=== PATIENT | female | born 2000 | race Caucasian/White ===

== ENCOUNTER 2020-04-17 14:07 | Inpatient (IN) | payer OTHER, MEDICAID, SELFPAY ==
--- NOTE | 2020-04-17 14:19 | ED.PSYCH ---
HPI - Psych General Chief Complaint: Psychiatric Symptoms Stated Complaint: crisis Time Seen by Provider: 04/17/20 14:19 Source: patient Mode of arrival: ambulatory Limitations: no limitations History of Present Illness HPI Narrative: 20-year-old female with history of bipolar 1 disorder with prior admission to psychiatric floor to presenting with complaint of feeling increasingly depressed, anxious and suicidal ideations. States he has been feeling increasingly having the symptoms and feel disorganized and feeling like she is going to have a behavioral outburst as she seems feels very easily frustrated by things. She does report that she frequently has lasted her medications on a regular basis mostly during the beginning of the month when there was a lapse in picking her medication from her pharmacy. She otherwise denies any medical problems or any illicit substance use. MD complaint: suicidal ideation, feels depressed and anxiety Onset (ago): day(s) Duration: constant History of same: Yes Relieving factors: none Exacerbating factors: none Context: not taking psychiatric medications Associated psychiatric symptoms: depression, suicidal ideation and racing thoughts Associated symptoms: denies other symptoms Treatments prior to arrival: none If self harm: admits thoughts of self harm ( States she has knives at home [employer] herself but has not done anything to do so.) Related Data Home Medications Medication Instructions Recorded Confirmed clonazepam 0.5 mg PO BID 04/17/20 04/17/20 divalproex 1,500 mg PO BEDTIME 04/17/20 04/17/20 lithium carbonate 450 mg PO BID 04/17/20 04/17/20 melatonin 10 mg PO BEDTIME 04/17/20 04/17/20 perphenazine 4 mg PO DAILY PRN 04/17/20 04/17/20 perphenazine 8 mg PO BEDTIME 04/17/20 04/17/20 propranolol 80 mg PO QAM 04/17/20 04/17/20 trazodone 150 mg PO BEDTIME 04/17/20 04/17/20 Allergies Allergy/AdvReac Type Severity Reaction Status Date / Time insect venom [MOSQUITO] Allergy Unknown UNKNOWN Unverified 01/25/20 17:02 paliperidone [From INVEGA] Allergy Unknown DYSTONIC Unverified 01/25/20 17:02 REACTION haloperidol [HALOPERIDOL] AdvReac Intermediate Dystonic Unverified 01/25/20 17:02 reaction Review of Systems Review of Systems: Constitutional: No Weight loss, No Fever, No Chills, No Night Sweats, No Fatigue, No Malaise ENT/Mouth: No Hearing loss, No Ear Pain, No Nasal Congestion, No Sinus Pain, No Hoarseness, No sore throat, No Rhinorrhea, No Swallowing Difficulty Eyes: No Eye Pain, No Swelling, No Redness, No Foreign Body, No Discharge, No Vision Changes Cardiovascular: No Chest Pain, No SOB, No Dyspnea on Exertion, No Orthopnea, No Edema, No Palpitations Respiratory: No Cough, No Sputum, No Wheezing, No Smoke Exposure, No Dyspnea Gastrointestinal: No Nausea, No Vomiting, No Diarrhea, No Constipation, No abdominal Pain, No Hematochezia, No Melena Genitourinary: no irregular bleeding, No Dysuria, No Urinary Frequency, No Hematuria, No Urinary Incontinence, No Urgency, No Flank Pain Musculoskeletal: No joint pain, No Myalgias, No Joint Swelling Skin: No Skin Lesions, No rash Neuro: No Weakness, No Numbness, No Paresthesias, No Loss of Consciousness, No Dizziness, No Headache Psych: As noted in HPI Heme/Lymph: No Bruising, No Bleeding,No Lymphadenopathy Endocrine: No Polyuria, No Polydipsia, No Temperature Intolerance Yes all other systems are reviewed and are negative [facility] Past Medical History Medical History Anxiety Bipolar 1 disorder PTSD (post-traumatic stress disorder) Social History Social History Advance Directives: No Advance Directives Information Provided: No Physical Exam Vital Signs: Vital Signs: Last Vital Signs Temp 97 F 04/17/20 19:09 Pulse 99 04/17/20 19:24 Resp 18 04/17/20 19:09 BP 104/69 04/17/20 19:24 Pulse Ox 99 04/17/20 19:09 Body Mass Index 22.6 Reviewed Const: General: cooperative and healthy appearing; No acute distress or intoxicated appearing Nutritional Appearance: average body habitus Orientation/consciousness: patient oriented x3 HENMT: Head: Yes normal to inspection Ears: hearing grossly normal bilaterally Eyes: General: appearance normal, both eyes and all related structures Visual Morrissey: normal visual morrissey by confrontation Neck: Neck: Yes normal visual inspection and No tender Thyroid: Thyroid normal Chest: Chest palpation & inspection: normal inspection of the chest Resp: Effort & Inspection: normal respiratory effort Auscultation: clear to auscultation bilaterally Cardio: Jugular venous distension: no JVD Rhythm: regular rhythm Heart sounds: S1 normal heart sound present and S2 normal heart sound present GI: Inspection: Yes normal to inspection Percussion: Yes normal to percussion Auscultation: normal bowel sounds : General: Yes no CVA tenderness Back/Spine/Pelvis: Back: no CVA tenderness Skin: General skin exam: no rashes or lesions noted Neuro: General: patient oriented x3 Extrem: General: Yes normal to inspection Psych: Appearance: well ket Course Course Course Narrative: 1444 Offers no medical complaints. Will obtain clearance labs and crisis evaluation. Plan reviewed and agreeable. 1800 Labs stable. Medically clear for psychiatric evaluation. Reevaluation(s) Reevaluation #1: 2100 sign-out at this time pending crisis evaluation. MDM - Psych Restraints Face to Face Assessment: Face to Face Assessment: Current Situation: After assessment of the patient, a review of the pertinent medical record and a discussion with nursing staff, I feel the patient requires a restrain intervention. Reaction To: [] Medical Condition: [] Behavioral State: [] Continued Need: [] Lab Data Result diagrams: 04/17/20 15:42 04/17/20 15:42 Labs: Lab Results 04/17/20 04/17/20 04/17/20 Range/Units 15:42 15:42 15:42 WBC 5.7 (4.8-10.8) X10*3/uL RBC 4.31 (4.20-5.50) X10*6/uL Hgb 13.2 (12.0-16.0) g/dl Hct 39.6 (37-47) % MCV 91.9 (80-98) fL MCH 30.6 (27.0-33.0) pg MCHC 33.3 (31.0-35.0) g/dl RDW 11.9 (11.0-16.0) % Plt Count 229 (160-400) X10*3/uL MPV 10.0 (9.4-12.3) fL Immature Gran % (Auto) 0.2 (0.0-0.4) % Neut % (Auto) 60.4 (45-73) % Lymph % (Auto) 30.1 (20-40) % [place] % (Auto) 7.9 (2-11) % Eos % (Auto) 0.9 (0-4) % Baso % (Auto) 0.5 (0-2) % Lymph # (Auto) 1.7 (1.2-4.9) X10*3/uL [place] # (Auto) 0.5 (0.1-1.2) X10*3/uL Eos # (Auto) 0.1 (0.0-0.4) X10*3/uL Baso # (Auto) 0.0 (0.0-0.2) X10*3/uL Abs Immat Gran (auto) 0.01 (0.00-0.03) X10*3/uL Absolute Neuts (auto) 3.4 (2.0-8.3) X10*3/uL Absolute Nucleated RBC 0.000 (0.0-0.012) X10*3/uL Nucleated RBC % (auto) 0.0 (0.0-0.2) /100WBC Sodium 135 (135-145) mmol/L Potassium 4.2 (3.3-5.1) mmol/l Chloride 106 (96-108) mmol/L Carbon Dioxide 21 L (22-29) mmol/L Anion Gap 12 (12-20) BUN 7 L (9-16) mg/dL Creatinine 0.62 (0.5-1.4) mg/dL Estim Creat Clear Calc 135.5 Estimated GFR > 60 Random Glucose 92 (60-115) mg/dL Calcium 9.3 (8.4-10.2) mg/dL Total Bilirubin 0.4 (0.0-1.0) mg/dL AST 20 (5-31) U/L ALT 16 (0-31) U/L Alkaline Phosphatase 67 (39-117) U/L Total Protein 7.4 (6.5-8.0) g/dL Albumin 4.3 (3.5-5.0) g/dL Urine Color Urine Appearance Urine pH (5.0-8.0) Ur Specific [place] (1.005-1.025) Urine Protein (NEG-TRACE) MG/DL Urine Glucose (UA) (NEG) MG/DL Urine Ketones (NEG) MG/DL Urine Blood (NEG) Urine Nitrite (NEG) Ur Leukocyte Esterase (NEG) Urine RBC (0) /HPF Urine WBC (0-4) /HPF Ur Squamous Epith Cells /LPF Urine Bacteria /LPF Urine Test (NEGATIVE) Urine Opiates Screen (Not Detect) Ur Barbiturates Screen (Not Detect) Ur Phencyclidine Scrn (Not Detect) Ur Amphetamines Screen (Not Detect) U Benzodiazepines Scrn (Not Detect) [place] 0.41 L (0.60-1.20) mmol/L Urine Cocaine Screen (Not Detect) U Marijuana (THC) Screen (Not Detect) Ethyl Alcohol mg/dL 04/17/20 04/17/20 04/17/20 Range/Units 15:42 15:42 15:42 WBC (4.8-10.8) X10*3/uL RBC (4.20-5.50) X10*6/uL Hgb (12.0-16.0) g/dl Hct (37-47) % MCV (80-98) fL MCH (27.0-33.0) pg MCHC (31.0-35.0) g/dl RDW (11.0-16.0) % Plt Count (160-400) X10*3/uL MPV (9.4-12.3) fL Immature Gran % (Auto) (0.0-0.4) % Neut % (Auto) (45-73) % Lymph % (Auto) (20-40) % [place] % (Auto) (2-11) % Eos % (Auto) (0-4) % Baso % (Auto) (0-2) % Lymph # (Auto) (1.2-4.9) X10*3/uL [place] # (Auto) (0.1-1.2) X10*3/uL Eos # (Auto) (0.0-0.4) X10*3/uL Baso # (Auto) (0.0-0.2) X10*3/uL Abs Immat Gran (auto) (0.00-0.03) X10*3/uL Absolute Neuts (auto) (2.0-8.3) X10*3/uL Absolute Nucleated RBC (0.0-0.012) X10*3/uL Nucleated RBC % (auto) (0.0-0.2) /100WBC Sodium (135-145) mmol/L Potassium (3.3-5.1) mmol/l Chloride (96-108) mmol/L Carbon Dioxide (22-29) mmol/L Anion Gap (12-20) BUN (9-16) mg/dL Creatinine (0.5-1.4) mg/dL Estim Creat Clear Calc Estimated GFR Random Glucose (60-115) mg/dL Calcium (8.4-10.2) mg/dL Total Bilirubin (0.0-1.0) mg/dL AST (5-31) U/L ALT (0-31) U/L Alkaline Phosphatase (39-117) U/L Total Protein (6.5-8.0) g/dL Albumin (3.5-5.0) g/dL Urine Color YELLOW Urine Appearance CLEAR Urine pH 7.5 (5.0-8.0) Ur Specific [place] 1.020 (1.005-1.025) Urine Protein NEG (NEG-TRACE) MG/DL Urine Glucose (UA) NEG (NEG) MG/DL Urine Ketones 5 (NEG) MG/DL Urine Blood NEG (NEG) Urine Nitrite NEG (NEG) Ur Leukocyte Esterase NEG (NEG) Urine RBC 0 (0) /HPF Urine WBC 0 (0-4) /HPF Ur Squamous Epith Cells 1+ /LPF Urine Bacteria 1+ /LPF Urine Test NEGATIVE (NEGATIVE) Urine Opiates Screen Not Detected (Not Detect) Ur Barbiturates Screen Not Detected (Not Detect) Ur Phencyclidine Scrn Not Detected (Not Detect) Ur Amphetamines Screen Not Detected (Not Detect) U Benzodiazepines Scrn Not Detected (Not Detect) [place] (0.60-1.20) mmol/L Urine Cocaine Screen Not Detected (Not Detect) U Marijuana (THC) Screen Not Detected (Not Detect) Ethyl Alcohol < 10 mg/dL Discharge Plan Discharge Clinical Impression: Depression, Bipolar disorder Prescriptions: No Action lithium carbonate 450 mg Tablet Extended Release 450 mg PO BID RF: 0 trazodone 150 mg Tablet 150 mg PO BEDTIME RF: 0 propranolol 80 mg Capsule,Extended Release 24 Hr 80 mg PO QAM RF: 0 perphenazine 8 mg Tablet 8 mg PO BEDTIME RF: 0 divalproex 500 mg Tablet Extended Release 24 Hr 1,500 mg PO BEDTIME RF: 0 melatonin 5 mg Tablet 10 mg PO BEDTIME RF: 0 perphenazine 4 mg Tablet 4 mg PO DAILY PRN (Reason: Psychosis) RF: 0 clonazepam 0.5 mg Tablet 0.5 mg PO BID RF: 0
[2020-04-17 14:38] VITALS: BP 105/68; PULSE 95; RESP 18; TEMP 36.1; O2SAT 97; BMI 22.6
[2020-04-17 15:51] LABS: Basophils Percent Auto 0.5 % (0-2); Eosinophils Absolute Auto 0.1 X10*3/uL (0.0-0.4); Eosinophils Percent Auto 0.9 % (0-4); Hematocrit 39.6 % (37-47); Hemoglobin 13.2 g/dl (12.0-16.0); Imm Gran Abs Auto 0.01 X10*3/uL (0.00-0.03); Imm Gran Pct Auto 0.2 % (0.0-0.4); Lymphocytes Absolute Auto 1.7 X10*3/uL (1.2-4.9); Lymphocytes Percent Auto 30.1 % (20-40); MANUAL DIFF FLAG NO; Mean Corpuscular HGB Conc 33.3 g/dl (31.0-35.0); Mean Corpuscular Hemoglobin 30.6 pg (27.0-33.0); Mean Corpuscular Volume 91.9 fL (80-98); Monocytes Absolute Auto 0.5 X10*3/uL (0.1-1.2); Monocytes Percent Auto 7.9 % (2-11); Neutrophils Absolute Auto 3.4 X10*3/uL (2.0-8.3); Neutrophils Percent Auto 60.4 % (45-73); Platelet Count 229 X10*3/uL (160-400); Red Blood Count 4.31 X10*6/uL (4.20-5.50); Red Cell Distribution Width 11.9 % (11.0-16.0); White Blood Count 5.7 X10*3/uL (4.8-10.8)
[2020-04-17 15:56] LABS: Glucose Urine UA NEG (NEG); Leukocyte Esterase Urine NEG (NEG); Nitrite Urine NEG (NEG); PH 7.5 (5.0-8.0); Urine Blood NEG (NEG); Urine Ketones 5 MG/DL (NEG); Urine Protein NEG (NEG-TRACE)
[2020-04-17 15:57] LABS: Appearance Urine CLEAR; Color Urine YELLOW
[2020-04-17 15:58] LABS: UPreg QC Valid YES; Urine Pregnancy NEGATIVE (NEGATIVE)
[2020-04-17 16:06] LABS: Bacteria Urine 1+ /LPF; RBC Urine 0 /HPF (0); Squamous Epithelial Cell Urine 1+ /LPF; WBC Urine 0 /HPF (0-4)
[2020-04-17 16:18] LABS: Lithium 0.41 mmol/L (0.60-1.20)
[2020-04-17 16:19] LABS: Ethanol < 10 mg/dL
[2020-04-17 16:24] LABS: Amphetamine Screen Urine Not Detected (Not Detect); Barbiturates, Urine Not Detected (Not Detect); Benzodiazepines Screen Urine Not Detected (Not Detect); Cannabinoid Screen Urine Not Detected (Not Detect); Cocaine Screen Urine Not Detected (Not Detect); Opiate Screen Urine Not Detected (Not Detect); Phencyclidine Screen Urine Not Detected (Not Detect)
[2020-04-17 16:25] LABS: Alanine Aminotransferase 16 U/L (0-31); Albumin Level 4.3 g/dL (3.5-5.0); Alkaline Phosphatase 67 U/L (39-117); Anion Gap 12 (12-20); Aspartate Amino Transferase 20 U/L (5-31); Bilirubin Total 0.4 mg/dL (0.0-1.0); Blood Urea Nitrogen 7 mg/dL (9-16); Calcium 9.3 mg/dL (8.4-10.2); Carbon Dioxide 21 mmol/L (22-29); Chloride 106 mmol/L (96-108); Creatinine Clr Calc Pharmacy 135.5; Estimated Glomerular Filt Rate > 60; Glucose Random 92 mg/dL (60-115); Potassium 4.2 mmol/l (3.3-5.1); Sodium 135 mmol/L (135-145); Total Protein 7.4 g/dL (6.5-8.0)
--- NOTE | 2020-04-17 16:38 | PC.NURSE ---
Patient calm and quiet, no distress observed/reported, N faxed/called/spoke with [facility]/confirmed receipt of referral, no ETA, will continue to monitor.
[2020-04-17 19:09] VITALS: BP 104/69; PULSE 99; RESP 18; TEMP 36.1; O2SAT 99
[2020-04-17 19:24] VITALS: BP 104/69; PULSE 99
[2020-04-17] MEDS: Propranolol HCL LA 80 MG CAP.SA.24H PO (19:24)
--- NOTE | 2020-04-17 20:16 | PC.NURSE ---
[facility] clinician with patient, patient engaged with process.
[2020-04-17] MEDS: Lithium Carbonate ER 450 MG TABLET.ER PO (20:57)
[2020-04-17] MEDS: Divalproex Sodium ER 500 MG TAB.ER.24H 1500 MG PO (20:57)
[2020-04-17] MEDS: traZODone HCL 50 MG TABLET 150 MG PO (20:57)
[2020-04-17] MEDS: Perphenazine 8 MG TABLET PO (20:57)
[2020-04-17] MEDS: Melatonin 3 MG TABLET 9 MG PO (20:58)
[2020-04-17] MEDS: clonazePAM 0.5 MG TABLET PO (21:01)
--- NOTE | 2020-04-17 21:16 | PC.NURSE ---
SAFIAN updated patient's disposition, patient is on section 12 inpatient bed search, patient and provider aware.
[2020-04-17 21:56] VITALS: BP 92/62; PULSE 89; RESP 18; TEMP 36.6; O2SAT 99
[2020-04-18] VITALS (7 sets, daily range): BP systolic 96–105; BP diastolic 58–62; PULSE 77–100; RESP 16; TEMP 36.4–37.6; O2SAT 98–99
--- NOTE | 2020-04-18 07:18 | PC.NURSE ---
Report received. PT is sleeping in bed. Breathing is even and unlabored. Inpatient bed search in progress.
[2020-04-18] MEDS: Propranolol HCL LA 80 MG CAP.SA.24H PO (09:23)
[2020-04-18] MEDS: clonazePAM 0.5 MG TABLET PO ×2 (09:24→20:09)
[2020-04-18] MEDS: Lithium Carbonate ER 450 MG TABLET.ER PO ×2 (09:24→20:09)
--- NOTE | 2020-04-18 11:44 | PC.NURSE ---
Report received from MAYUR De Jesus. Pt resting, resp unlabored.
[2020-04-18 14:34] LABS: COVID-19 Test Negative (Negative); IDNOW Serial# 9DD0AD1C
--- NOTE | 2020-04-18 15:14 | PC.NURSE ---
Report given to MAYUR Yung on [facility]
--- NOTE | 2020-04-18 17:50 | PC.NURSE ---
CARE team in to transfer pt to [facility]. Pt cooperative w/ transfer, no concerns reported.
[2020-04-18] MEDS: Divalproex Sodium ER 500 MG TAB.ER.24H 1500 MG PO (20:10)
[2020-04-18] MEDS: Perphenazine 8 MG TABLET PO (20:10)
[2020-04-18] MEDS: Melatonin 3 MG TABLET 9 MG PO (20:10)
[2020-04-18] MEDS: traZODone HCL 50 MG TABLET 150 MG PO (20:10)
--- NOTE | 2020-04-18 21:15 | PC.ADMIT ---
Pt is admitted to from [facility] ED at 1750. Pt is an Irish speaking, caucasion ladarius who [place] [facility] [place] due to her mother requesting help when pt stated suicidal ideation with plan to kill her self using one of her brothers construction tools from [employer]. Pt reported feeeling depresssed, sad and active SI. N noted pt to be suffering from delusions centered in her self-esteem where she feels she is bad. I don't want to exist, and feels she is too fat . Pt made comments that her mother cared for her siblings more than her which increased pts idea there is no point in existing . Pt is isolating herself and sleeping all day and not eating. Pt has not been taking her medications as ordered ( lithium level 0.40). Pt was admitted to in November 2019. Pt familar with unit and staff. Pt contracted for safety. Pt will seek out staff if feeling unsafe. Pt pleasant and cooperative. Pt to have lab work in the am.
[2020-04-19 07:00] VITALS: BP 95/51; PULSE 87; RESP 16; TEMP 35.5; O2SAT 99
[2020-04-19 08:37] LABS: Cholesterol 151 mg/dL; Glucose Fasting 90 mg/dL (60-99); HDL Cholesterol 52 mg/dL; LDL Cholesterol Calculated 85 mg/dl; Triglycerides 70 mg/dL
[2020-04-19 08:56] LABS: Thyroid Stimulating Hormone 7.79 uIU/mL (0.32-4.0)
[2020-04-19] MEDS: clonazePAM 0.5 MG TABLET PO ×2 (08:57→20:08)
[2020-04-19] MEDS: Lithium Carbonate ER 450 MG TABLET.ER PO ×2 (08:57→20:07)
[2020-04-19 08:58] VITALS: BP 95/51; PULSE 87
--- NOTE | 2020-04-19 11:05 | P.HPPS_ITS ---
HPI Chief Complaint: mood swings Sources of Information: patient interviewed, chart reviewed and crisis/core team assessment reviewed HPI Narrative: Individual is an Setswana speaking, femal who arrived to [facility] [place] [facility] for crisis evaluation due to her mother requesting help when pt stated suicidal ideation with plan to kill her self using one of her brothers construction tools from the house. This is one of several admission to and she was last admitted in November 2019. She was referred for admission by [facility] crisis. Pt reported feeling depressed, sad and active SI. N noted her to be suffering from delusions centered in her self-esteem where she feels she is bad. She states I don't want to exist , and feels she is too fat . Pt made comments that her mother cared for her siblings more than her which increased pts idea there is no point in existing . She insists that her family does not like her. She has not been taking her medication consistently lately, has been isolating and not taking care of her basic needs. She reports that she does feel safe on the unit, and is hopeful that she can feel better. Past Psychiatric History: Multiple admissions to She receives services through [facility] Medical Evaluation Reviewed: Yes Medically cleared for admission [facility] Medical History Anxiety Bipolar 1 disorder PTSD (post-traumatic stress disorder) Social History: Lives with her family Substance History: Denies Diagnostics Vital Signs (24Hr): Vital Signs - 24 hr 04/18/20 12:00 04/18/20 14:00 04/18/20 16:00 Temperature Pulse Rate Respiratory Rate 16 16 16 Blood Pressure Pulse Oximetry 04/18/20 16:21 04/18/20 18:00 04/19/20 07:00 Temperature 97.5 F 99.6 F 96 F L Pulse Rate 91 77 87 Respiratory Rate 16 16 Blood Pressure 96/58 L 100/61 95/51 L Pulse Oximetry 98 99 04/19/20 08:58 Temperature Pulse Rate 87 Respiratory Rate Blood Pressure 95/51 L Pulse Oximetry Body Mass Index 22.6 Labs Results: 04/17/20 15:42 04/17/20 15:42 Labs: Laboratory Results - last 48 hr 04/17/20 04/17/20 04/17/20 15:42 15:42 15:42 WBC 5.7 RBC 4.31 Hgb 13.2 Hct 39.6 MCV 91.9 MCH 30.6 MCHC 33.3 RDW 11.9 Plt Count 229 MPV 10.0 Immature Gran % (Auto) 0.2 Neut % (Auto) 60.4 Lymph % (Auto) 30.1 [place] % (Auto) 7.9 Eos % (Auto) 0.9 Baso % (Auto) 0.5 Lymph # (Auto) 1.7 [place] # (Auto) 0.5 Eos # (Auto) 0.1 Baso # (Auto) 0.0 Abs Immat Gran (auto) 0.01 Absolute Neuts (auto) 3.4 Absolute Nucleated RBC 0.000 Nucleated RBC % (auto) 0.0 Sodium 135 Potassium 4.2 Chloride 106 Carbon Dioxide 21 L Anion Gap 12 BUN 7 L Creatinine 0.62 Estim Creat Clear Calc 135.5 Estimated GFR > 60 Random Glucose 92 Fasting Glucose Calcium 9.3 Total Bilirubin 0.4 AST 20 ALT 16 Alkaline Phosphatase 67 Total Protein 7.4 Albumin 4.3 Triglycerides Cholesterol LDL Cholesterol, Calc HDL Cholesterol TSH Urine Color Urine Appearance Urine pH Ur Specific [place] Urine Protein Urine Glucose (UA) Urine Ketones Urine Blood Urine Nitrite Ur Leukocyte Esterase Urine RBC Urine WBC Ur Squamous Epith Cells Urine Bacteria Urine Test Urine Opiates Screen Ur Barbiturates Screen Valproic Acid Ur Phencyclidine Scrn Ur Amphetamines Screen U Benzodiazepines Scrn [place] 0.41 L Urine Cocaine Screen U Marijuana (THC) Screen Ethyl Alcohol COVID-19 ([facility]) COVID-19 Clin Com 04/17/20 04/17/20 04/17/20 15:42 15:42 15:42 WBC RBC Hgb Hct MCV MCH MCHC RDW Plt Count MPV Immature Gran % (Auto) Neut % (Auto) Lymph % (Auto) [place] % (Auto) Eos % (Auto) Baso % (Auto) Lymph # (Auto) [place] # (Auto) Eos # (Auto) Baso # (Auto) Abs Immat Gran (auto) Absolute Neuts (auto) Absolute Nucleated RBC Nucleated RBC % (auto) Sodium Potassium Chloride Carbon Dioxide Anion Gap BUN Creatinine Estim Creat Clear Calc Estimated GFR Random Glucose Fasting Glucose Calcium Total Bilirubin AST ALT Alkaline Phosphatase Total Protein Albumin Triglycerides Cholesterol LDL Cholesterol, Calc HDL Cholesterol TSH Urine Color YELLOW Urine Appearance CLEAR Urine pH 7.5 Ur Specific [place] 1.020 Urine Protein NEG Urine Glucose (UA) NEG Urine Ketones 5 Urine Blood NEG Urine Nitrite NEG Ur Leukocyte Esterase NEG Urine RBC 0 Urine WBC 0 Ur Squamous Epith Cells 1+ Urine Bacteria 1+ Urine Test NEGATIVE Urine Opiates Screen Not Detected Ur Barbiturates Screen Not Detected Valproic Acid Ur Phencyclidine Scrn Not Detected Ur Amphetamines Screen Not Detected U Benzodiazepines Scrn Not Detected [place] Urine Cocaine Screen Not Detected U Marijuana (THC) Screen Not Detected Ethyl Alcohol < 10 COVID-19 ([facility]ENNA) COVID-19 Clin Com 04/18/20 04/19/20 04/19/20 13:54 07:50 07:50 WBC RBC Hgb Hct MCV MCH MCHC RDW Plt Count MPV Immature Gran % (Auto) Neut % (Auto) Lymph % (Auto) [place] % (Auto) Eos % (Auto) Baso % (Auto) Lymph # (Auto) [place] # (Auto) Eos # (Auto) Baso # (Auto) Abs Immat Gran (auto) Absolute Neuts (auto) Absolute Nucleated RBC Nucleated RBC % (auto) Sodium Potassium Chloride Carbon Dioxide Anion Gap BUN Creatinine Estim Creat Clear Calc Estimated GFR Random Glucose Fasting Glucose 90 Calcium Total Bilirubin AST ALT Alkaline Phosphatase Total Protein Albumin Triglycerides 70 Cholesterol 151 LDL Cholesterol, Calc 85 HDL Cholesterol 52 TSH 7.79 H Urine Color Urine Appearance Urine pH Ur Specific [place] Urine Protein Urine Glucose (UA) Urine Ketones Urine Blood Urine Nitrite Ur Leukocyte Esterase Urine RBC Urine WBC Ur Squamous Epith Cells Urine Bacteria Urine Test Urine Opiates Screen Ur Barbiturates Screen Valproic Acid 76.0 Ur Phencyclidine Scrn Ur Amphetamines Screen U Benzodiazepines Scrn [place] Urine Cocaine Screen U Marijuana (THC) Screen Ethyl Alcohol COVID-19 (SIENNA) Negative COVID-19 Clin Com See Note Meds/Allergies Meds Home Medications Acetaminophen (Acetaminophen 325 Mg Tablet) 650 mg PO Q6H PRN PRN Reason: Headache/Pain Mild Scale (1-3) Al Hydroxide/Mg Hydroxide (Magnesium Hydrox/Alum Hydrox 30 Ml Oral.Susp) 30 ml PO Q6H PRN PRN Reason: Heartburn/Nausea Clonazepam (Clonazepam 0.5 Mg Tablet) 0.5 mg PO BID [facility] Last Admin: 04/19/20 08:57 Dose: 0.5 mg Documented by: Divalproex Sodium (Divalproex Sodium Er 500 Mg Tab.Er.24h) 1,500 mg PO BEDTIME [place] Last Admin: 04/18/20 20:10 Dose: 1,500 mg Documented by: Hydroxyzine HCl (Hydroxyzine Hcl 25 Mg Tablet) 25 mg PO BEDTIME PRN PRN Reason: Anxiety [place] Carbonate ([place] Carbonate Er 450 Mg Tablet.Er) 450 mg PO BID [facility] Last Admin: 04/19/20 08:57 Dose: 450 mg Documented by: Magnesium Hydroxide (Milk Of Magnesia 30 Ml Oral.Susp) 30 ml PO DAILY PRN PRN Reason: Constipation Melatonin (Melatonin 3 Mg Tablet) 9 mg PO BEDTIME [facility] Last Admin: 04/18/20 20:10 Dose: 9 mg Documented by: Perphenazine (Perphenazine 4 Mg Tablet) 4 mg PO DAILY PRN PRN Reason: Psychosis Perphenazine (Perphenazine 8 Mg Tablet) 8 mg PO BEDTIME [facility] Last Admin: 04/18/20 20:10 Dose: 8 mg Documented by: Propranolol HCl (Propranolol Hcl [place] 80 Mg Cap.Sa.24h) 80 mg PO DAILY [facility]; Protocol Last Admin: 04/19/20 08:58 Dose: Not Given Documented by: Trazodone HCl (Trazodone Hcl 50 Mg Tablet) 150 mg PO BEDTIME [facility] Last Admin: 04/18/20 20:10 Dose: 150 mg Documented by: Trazodone HCl (Trazodone Hcl 50 Mg Tablet) 50 mg PO BEDTIME PRN PRN Reason: Insomnia Allergies Allergies Allergy/AdvReac Type Severity Reaction Status Date / Time insect venom [MOSQUITO] Allergy Unknown UNKNOWN Unverified 01/25/20 17:02 paliperidone [From INVEGA] Allergy Unknown DYSTONIC Unverified 01/25/20 17:02 REACTION haloperidol [HALOPERIDOL] AdvReac Intermediate Dystonic Unverified 01/25/20 17:02 reaction Mental Status Exam Mental Status Exam Patient Appearance: Fatigued and Disheveled Patient Orientation: Person, Place and Time Level of Consciousness: Awake Patient Behavior: Appropriate, Timid, Fatigued and Isolative Mood Description: Anxious Affect Description: Anxious and Flat Ability to Follow Directions: Fair Speech Pattern: Clear Hallucinations: None Delusions: Present (Distorted body image) Thought Process: Goal Oriented and Slowed Thinking Thought Content: positive for Goal Oriented, positive for Preoccupation, negative for Suicidal Ideation and negative for Homicidal Ideation Depressive Symptoms: Increased Anxiety, Insomnia, Crying Spells, Sleeping More Than Usual, Hopelessness, Increased Fatigue, Thoughts of /Suicide and Loss of Energy Judgement: Fair Assessment & Plan Assessment & Plan (1) Bipolar disorder: Status: Acute Qualifiers: Active/Remission status: currently active Current bipolar episode type: depressed Current episode severity: severe Psychotic features: with psychotic features Qualified Code(s): F31.5 - Bipolar disorder, current episode depressed, severe, with psychotic features Code(s): F31.9 - Bipolar disorder, unspecified Assessment and Plan: Resume outpatient medication Collect collateral history. CV, 15 Patient educated on: diagnosis and medication risk/benefits Informed Consent: further education needed Reason for continued inpatient stay Substantial Risk for: inability to function and rapid decompensation
[2020-04-19 18:00] VITALS: BP 94/51; PULSE 89; TEMP 37.2
[2020-04-19] MEDS: Melatonin 3 MG TABLET 9 MG PO (20:07)
[2020-04-19] MEDS: Divalproex Sodium ER 500 MG TAB.ER.24H 1500 MG PO (20:07)
[2020-04-19] MEDS: Perphenazine 8 MG TABLET PO (20:08)
[2020-04-19] MEDS: traZODone HCL 50 MG TABLET 150 MG PO (20:08)
[2020-04-20 06:05] VITALS: BP 87/55; PULSE 88; RESP 16; TEMP 36.3; O2SAT 97
--- NOTE | 2020-04-20 07:15 | HO.PSYCHPN ---
Subjective Subjective Date of Service: 04/20/20 Reason For Visit: mood swings Subjective Notes: Conditional Voluntary Interim History: Interval Hx noted. Pt known to [facility] from earlier admissions. Reports less depression but persistent anxiety. No SI. Quite insightful. Will review meds for anxiety. Low BP noted. Hx of Tachycardia. Will reduce Propranolol. Medication Compliance: Yes Side effects from medications: No Attending Groups: Yes Review of Systems Review of Systems Constitutional: No Weight loss, No Fever, No Chills, No Night Sweats, No Fatigue, No Malaise ENT/Mouth: No Hearing loss, No Ear Pain, No Nasal Congestion, No Sinus Pain, No Hoarseness, No sore throat, No Rhinorrhea, No Swallowing Difficulty Eyes: No Eye Pain, No Swelling, No Redness, No Foreign Body, No Discharge, No Vision Changes Cardiovascular: No Chest Pain, No SOB, No Dyspnea on Exertion, No Orthopnea, No Edema, No Palpitations Respiratory: No Cough, No Sputum, No Wheezing, No Smoke Exposure, No Dyspnea Gastrointestinal: No Nausea, No Vomiting, No Diarrhea, No Constipation, No abdominal Pain, No Hematochezia, No Melena Genitourinary: no irregular bleeding, No Dysuria, No Urinary Frequency, No Hematuria, No Urinary Incontinence, No Urgency, No Flank Pain Musculoskeletal: No joint pain, No Myalgias, No Joint Swelling Skin: No Skin Lesions, No rash Neuro: No Weakness, No Numbness, No Paresthesias, No Loss of Consciousness, No Dizziness, No Headache Psych: As noted in HPI Heme/Lymph: No Bruising, No Bleeding,No Lymphadenopathy Endocrine: No Polyuria, No Polydipsia, No Temperature Intolerance Mental Status Exam Mental Status Exam Patient Appearance: Fatigued and Disheveled Patient Orientation: Person, Place and Time Level of Consciousness: Awake Patient Behavior: Appropriate, Fatigued and Isolative Mood Description: Anxious Affect Description: Anxious and Flat Ability to Follow Directions: Fair Speech Pattern: Clear Diagnostics Vital Signs (24Hr): Vital Signs - 24 hr 04/19/20 08:58 04/19/20 18:00 04/20/20 06:05 Temperature 98.9 F 97.3 F Pulse Rate 87 89 88 Respiratory Rate 16 Blood Pressure 95/51 L 94/51 L 87/55 L Pulse Oximetry 97 Body Mass Index 22.6 Labs Results: 04/17/20 15:42 04/17/20 15:42 Labs: Laboratory Results - last 48 hr 04/18/20 04/19/20 04/19/20 13:54 07:50 07:50 Fasting Glucose 90 Triglycerides 70 Cholesterol 151 LDL Cholesterol, Calc 85 HDL Cholesterol 52 TSH 7.79 H Valproic Acid 76.0 COVID-19 ([facility]) Negative COVID-19 Clin Com See Note Medications Medications Current Medications Generic Name Dose Route Start Last Admin Trade Name Freq PRN Reason Stop Dose Admin Acetaminophen 650 mg 04/18/20 16:55 Acetaminophen 325 Mg Tablet PO Q6H PRN Headache/Pain Mild Scale (1-3) Al Hydroxide/Mg Hydroxide 30 ml 04/18/20 16:55 Magnesium Hydrox/Alum Hydrox 30 Ml Oral.Susp PO Q6H PRN Heartburn/Nausea Clonazepam 0.5 mg 04/17/20 21:00 04/19/20 20:08 Clonazepam 0.5 Mg Tablet PO 0.5 mg BID [facility] Administration Divalproex Sodium 1,500 mg 04/17/20 21:00 04/19/20 20:07 Divalproex Sodium Er 500 Mg Tab.Er.24h PO 1,500 mg BEDTIME G[facility] Administration Hydroxyzine HCl 25 mg 04/18/20 16:55 Hydroxyzine Hcl 25 Mg Tablet PO BEDTIME PRN Anxiety [place] Carbonate 450 mg 04/17/20 21:00 04/19/20 20:07 [place] Carbonate Er 450 Mg Tablet.Er PO 450 mg BID G[facility] Administration Magnesium Hydroxide 30 ml 04/18/20 16:55 Milk Of Magnesia 30 Ml Oral.Susp PO DAILY PRN Constipation Melatonin 9 mg 04/17/20 21:00 04/19/20 20:07 Melatonin 3 Mg Tablet PO 9 mg BEDTIME [facility] Administration Perphenazine 4 mg 04/17/20 18:52 Perphenazine 4 Mg Tablet PO DAILY PRN Psychosis Perphenazine 8 mg 04/17/20 21:00 04/19/20 20:08 Perphenazine 8 Mg Tablet PO 8 mg BEDTIME G[facility] Administration Propranolol HCl 80 mg 04/17/20 19:00 04/19/20 08:58 Propranolol Hcl La 80 Mg Cap.Sa.24h PO Not Given DAILY G[facility] Protocol Trazodone HCl 150 mg 04/17/20 21:00 04/19/20 20:08 Trazodone Hcl 50 Mg Tablet PO 150 mg BEDTIME G[facility] Administration Trazodone HCl 50 mg 04/18/20 16:55 Trazodone Hcl 50 Mg Tablet PO BEDTIME PRN Insomnia Allergies Allergies Allergy/AdvReac Type Severity Reaction Status Date / Time insect venom [MOSQUITO] Allergy Unknown UNKNOWN Unverified 01/25/20 17:02 paliperidone [From INVEGA] Allergy Unknown DYSTONIC Unverified 01/25/20 17:02 REACTION haloperidol [HALOPERIDOL] AdvReac Intermediate Dystonic Unverified 01/25/20 17:02 reaction Assessment & Plan Assessment & Plan (1) Bipolar disorder: Qualifiers: Active/Remission status: currently active Current bipolar episode type: depressed Current episode severity: severe Psychotic features: with psychotic features Qualified Code(s): F31.5 - Bipolar disorder, current episode depressed, severe, with psychotic features Status: Acute Code(s): F31.9 - Bipolar disorder, unspecified Assessment and Plan: Resume outpatient medication Collect collateral history. CV, 15 Reduce propranolol. Monitor VS Greater than 50% of the session was spent on counseling and/or coordination of care
[2020-04-20] MEDS: Lithium Carbonate ER 450 MG TABLET.ER PO ×2 (09:35→20:33)
[2020-04-20 09:36] VITALS: BP 87/55; PULSE 88
[2020-04-20] MEDS: clonazePAM 0.5 MG TABLET PO ×3 (09:37→20:32)
[2020-04-20 16:32] VITALS: BP 92/56; PULSE 99; TEMP 36.2
[2020-04-20] MEDS: Melatonin 3 MG TABLET 9 MG PO (20:32)
[2020-04-20] MEDS: traZODone HCL 50 MG TABLET 150 MG PO (20:33)
[2020-04-20] MEDS: Divalproex Sodium ER 500 MG TAB.ER.24H 1500 MG PO (20:33)
[2020-04-20] MEDS: Perphenazine 8 MG TABLET PO (20:33)
[2020-04-21 06:00] VITALS: BP 86/53; PULSE 87; RESP 16; TEMP 36.6; O2SAT 99
[2020-04-21 08:30] VITALS: BP 86/53; PULSE 87
[2020-04-21] MEDS: clonazePAM 0.5 MG TABLET PO ×3 (08:30→20:50)
[2020-04-21] MEDS: Lithium Carbonate ER 450 MG TABLET.ER PO ×2 (08:30→20:50)
--- NOTE | 2020-04-21 09:50 | P.PNPSI_ITS ---
Subjective Subjective Date of Service: 04/21/20 Reason For Visit: mood swings Interim History: Interval Hx noted. Pt known to [facility] from earlier admissions. Reports less depression . Unusually quite and subdued. No SI. Quite insightful. Will review meds for anxiety. Low BP noted. Hx of Tachycardia. Will reduce Propranolol. Check VS TID. Review of Systems Review of Systems Constitutional: No Weight loss, No Fever, No Chills, No Night Sweats, No Fatigue, No Malaise ENT/Mouth: No Hearing loss, No Ear Pain, No Nasal Congestion, No Sinus Pain, No Hoarseness, No sore throat, No Rhinorrhea, No Swallowing Difficulty Eyes: No Eye Pain, No Swelling, No Redness, No Foreign Body, No Discharge, No Vision Changes Cardiovascular: No Chest Pain, No SOB, No Dyspnea on Exertion, No Orthopnea, No Edema, No Palpitations Respiratory: No Cough, No Sputum, No Wheezing, No Smoke Exposure, No Dyspnea Gastrointestinal: No Nausea, No Vomiting, No Diarrhea, No Constipation, No abdominal Pain, No Hematochezia, No Melena Genitourinary: no irregular bleeding, No Dysuria, No Urinary Frequency, No Hematuria, No Urinary Incontinence, No Urgency, No Flank Pain Musculoskeletal: No joint pain, No Myalgias, No Joint Swelling Skin: No Skin Lesions, No rash Neuro: No Weakness, No Numbness, No Paresthesias, No Loss of Consciousness, No Dizziness, No Headache Psych: As noted in HPI Heme/Lymph: No Bruising, No Bleeding,No Lymphadenopathy Endocrine: No Polyuria, No Polydipsia, No Temperature Intolerance Mental Status Exam Mental Status Exam Patient Appearance: Fatigued and Disheveled Patient Orientation: Person, Place and Time Level of Consciousness: Awake Patient Behavior: Appropriate, Fatigued and Isolative Mood Description: Anxious Affect Description: Anxious and Flat Ability to Follow Directions: Fair Speech Pattern: Clear Diagnostics Vital Signs (24Hr): Vital Signs - 24 hr 04/20/20 16:32 04/21/20 06:00 04/21/20 08:30 Temperature 97.2 F 97.8 F Pulse Rate 99 87 87 Respiratory Rate 16 Blood Pressure 92/56 L 86/53 L 86/53 L Pulse Oximetry 99 Body Mass Index 22.6 Labs Results: 04/17/20 15:42 04/17/20 15:42 Medications Medications Current Medications Generic Name Dose Route Start Last Admin Trade Name Freq PRN Reason Stop Dose Admin Acetaminophen 650 mg 04/18/20 16:55 Acetaminophen 325 Mg Tablet PO Q6H PRN Headache/Pain Mild Scale (1-3) Al Hydroxide/Mg Hydroxide 30 ml 04/18/20 16:55 Magnesium Hydrox/Alum Hydrox 30 Ml Oral.Susp PO Q6H PRN Heartburn/Nausea Clonazepam 0.5 mg 04/20/20 15:00 04/21/20 08:30 Clonazepam 0.5 Mg Tablet PO 0.5 mg TID [facility] Administration Divalproex Sodium 1,500 mg 04/17/20 21:00 04/20/20 20:33 Divalproex Sodium Er 500 Mg Tab.Er.24h PO 1,500 mg BEDTIME [facility] Administration Hydroxyzine HCl 25 mg 04/18/20 16:55 Hydroxyzine Hcl 25 Mg Tablet PO BEDTIME PRN Anxiety [place] Carbonate 450 mg 04/17/20 21:00 04/21/20 08:30 [place] Carbonate Er 450 Mg Tablet.Er PO 450 mg BID G[facility] Administration Magnesium Hydroxide 30 ml 04/18/20 16:55 Milk Of Magnesia 30 Ml Oral.Susp PO DAILY PRN Constipation Melatonin 9 mg 04/17/20 21:00 04/20/20 20:32 Melatonin 3 Mg Tablet PO 9 mg BEDTIME [facility] Administration Perphenazine 4 mg 04/17/20 18:52 Perphenazine 4 Mg Tablet PO DAILY PRN Psychosis Perphenazine 8 mg 04/17/20 21:00 04/20/20 20:33 Perphenazine 8 Mg Tablet PO 8 mg BEDTIME [facility] Administration Propranolol HCl 20 mg 04/21/20 09:00 Propranolol Hcl 20 Mg Tablet PO BID [facility] Protocol Trazodone HCl 150 mg 04/17/20 21:00 04/20/20 20:33 Trazodone Hcl 50 Mg Tablet PO 150 mg BEDTIME [facility] Administration Trazodone HCl 50 mg 04/18/20 16:55 Trazodone Hcl 50 Mg Tablet PO BEDTIME PRN Insomnia Allergies Allergies Allergy/AdvReac Type Severity Reaction Status Date / Time insect venom [MOSQUITO] Allergy Unknown UNKNOWN Unverified 01/25/20 17:02 paliperidone [From INVEGA] Allergy Unknown DYSTONIC Unverified 01/25/20 17:02 REACTION haloperidol [HALOPERIDOL] AdvReac Intermediate Dystonic Unverified 01/25/20 17:02 reaction Assessment & Plan Assessment & Plan (1) Bipolar disorder: Qualifiers: Active/Remission status: currently active Current bipolar episode type: depressed Current episode severity: severe Psychotic features: with psychotic features Qualified Code(s): F31.5 - Bipolar disorder, current episode d epressed, severe, with psychotic features Status: Acute Code(s): F31.9 - Bipolar disorder, unspecified Assessment and Plan: Resume outpatient medication Collect collateral history. CV, 15 Reduce propranolol. Monitor VS Greater than 50% of the session was spent on counseling and/or coordination of care
[2020-04-21 14:40] VITALS: BP 88/56; PULSE 80
[2020-04-21] MEDS: Perphenazine 4 MG TABLET PO (14:43)
[2020-04-21 16:00] VITALS: BP 102/61; PULSE 106; TEMP 37.2
[2020-04-21 20:47] VITALS: BP 102/61; PULSE 107
[2020-04-21] MEDS: Propranolol HCL 20 MG TABLET PO (20:47)
[2020-04-21] MEDS: Divalproex Sodium ER 500 MG TAB.ER.24H 1500 MG PO (20:48)
[2020-04-21] MEDS: traZODone HCL 50 MG TABLET 150 MG PO (20:49)
[2020-04-21] MEDS: Melatonin 3 MG TABLET 9 MG PO (20:49)
[2020-04-21] MEDS: Perphenazine 8 MG TABLET PO (20:50)
[2020-04-22 06:05] VITALS: BP 88/59; PULSE 90; RESP 14; TEMP 36.4; O2SAT 99
[2020-04-22] MEDS: Lithium Carbonate ER 450 MG TABLET.ER PO ×2 (08:53→22:28)
[2020-04-22] MEDS: Perphenazine 4 MG TABLET PO (08:53)
[2020-04-22 08:55] VITALS: BP 88/59; PULSE 90
[2020-04-22] MEDS: clonazePAM 0.5 MG TABLET PO ×3 (09:24→22:26)
--- NOTE | 2020-04-22 15:23 | HO.PSYCHPN ---
Subjective Subjective Date of Service: 04/22/20 Reason For Visit: mood swings Subjective Notes: Conditional Voluntary Interim History: Lauren is feeling much improved. She is not plagued with negative and intrusive thoughts about herself and she observes I can even smile . She feels that she will be ready to go home in a day or two. Medication Compliance: Yes Side effects from medications: No Attending Groups: Yes Review of Systems Acute medical concerns: No Medical Review of Systems: unchanged Mental Status Exam Mental Status Exam Patient Appearance: Fatigued and Disheveled Patient Orientation: Person, Place and Time Level of Consciousness: Awake Patient Behavior: Appropriate Mood Description: Anxious Affect Description: Anxious and Flat Ability to Follow Directions: Fair Speech Pattern: Clear Memory Description: Intact Hallucinations: None Delusions: Not Present Thought Process: Intact Thought Content: positive for Intact, positive for Circumstantial, negative for Suicidal Ideation and negative for Homicidal Ideation Depressive Symptoms: Increased Anxiety, Diff. Making Decisions, Sleeping More Than Usual and Low Self Esteem Diagnostics Vital Signs (24Hr): Vital Signs - 24 hr 04/21/20 16:00 04/21/20 20:47 04/22/20 06:05 Temperature 98.9 F 97.5 F Pulse Rate 106 H 107 H 90 Respiratory Rate 14 Blood Pressure 102/61 102/61 88/59 L Pulse Oximetry 99 04/22/20 08:55 Temperature Pulse Rate 90 Respiratory Rate Blood Pressure 88/59 L Pulse Oximetry Body Mass Index 22.6 Labs Results: 04/17/20 15:42 04/17/20 15:42 Medications Medications Current Medications Generic Name Dose Route Start Last Admin Trade Name Asifq PRN Reason Stop Dose Admin Acetaminophen 650 mg 04/18/20 16:55 Acetaminophen 325 Mg Tablet PO Q6H PRN Headache/Pain Mild Scale (1-3) Al Hydroxide/Mg Hydroxide 30 ml 04/18/20 16:55 Magnesium Hydrox/Alum Hydrox 30 Ml Oral.Susp PO Q6H PRN Heartburn/Nausea Clonazepam 0.5 mg 04/20/20 15:00 04/22/20 14:31 Clonazepam 0.5 Mg Tablet PO 0.5 mg TID [facility] Administration Divalproex Sodium 1,500 mg 04/17/20 21:00 04/21/20 20:48 Divalproex Sodium Er 500 Mg Tab.Er.24h PO 1,500 mg BEDTIME [facility] Administration Hydroxyzine HCl 25 mg 04/18/20 16:55 Hydroxyzine Hcl 25 Mg Tablet PO BEDTIME PRN Anxiety [place] Carbonate 450 mg 04/17/20 21:00 04/22/20 08:53 [place] Carbonate Er 450 Mg Tablet.Er PO 450 mg BID [facility] Administration Magnesium Hydroxide 30 ml 04/18/20 16:55 Milk Of Magnesia 30 Ml Oral.Susp PO DAILY PRN Constipation Melatonin 9 mg 04/17/20 21:00 04/21/20 20:49 Melatonin 3 Mg Tablet PO 9 mg BEDTIME [facility] Administration Perphenazine 8 mg 04/17/20 21:00 04/21/20 20:50 Perphenazine 8 Mg Tablet PO 8 mg BEDTIME [facility] Administration Perphenazine 4 mg 04/21/20 10:00 04/22/20 08:53 Perphenazine 4 Mg Tablet PO 4 mg DAILY [facility] Administration Propranolol HCl 20 mg 04/21/20 09:00 04/22/20 08:55 Propranolol Hcl 20 Mg Tablet PO Not Given BID [facility] Protocol Trazodone HCl 150 mg 04/17/20 21:00 04/21/20 20:49 Trazodone Hcl 50 Mg Tablet PO 150 mg BEDTIME [facility] Administration Trazodone HCl 50 mg 04/18/20 16:55 Trazodone Hcl 50 Mg Tablet PO BEDTIME PRN Insomnia Allergies Allergies Allergy/AdvReac Type Severity Reaction Status Date / Time insect venom [MOSQUITO] Allergy Unknown UNKNOWN Unverified 01/25/20 17:02 paliperidone [From INVEGA] Allergy Unknown DYSTONIC Unverified 01/25/20 17:02 REACTION haloperidol [HALOPERIDOL] AdvReac Intermediate Dystonic Unverified 01/25/20 17:02 reaction Assessment & Plan Assessment & Plan (1) Bipolar disorder: Qualifiers: Active/Remission status: currently active Current bipolar episode type: depressed Current episode severity: severe Psychotic features: with psychotic features Qualified Code(s): F31.5 - Bipolar disorder, current episode depressed, severe, with psychotic features Status: Acute Code(s): F31.9 - Bipolar disorder, unspecified Assessment and Plan: CT current treatment plan Greater than 50% of the session was spent on counseling and/or coordination of care Patient educated on: diagnosis and medication risk/benefits Informed Consent: further education needed Reason for contiued inpatient stay Substantial Risk for: rapid decompensation
[2020-04-22 18:00] VITALS: BP 101/62; PULSE 111; TEMP 36.6
[2020-04-22] MEDS: Divalproex Sodium ER 500 MG TAB.ER.24H 1500 MG PO (22:26)
[2020-04-22 22:27] VITALS: BP 101/62; PULSE 111
[2020-04-22] MEDS: Propranolol HCL 20 MG TABLET PO (22:27)
[2020-04-22] MEDS: Melatonin 3 MG TABLET 9 MG PO (22:27)
[2020-04-22] MEDS: traZODone HCL 50 MG TABLET 150 MG PO (22:28)
[2020-04-22] MEDS: Perphenazine 8 MG TABLET PO (22:28)
[2020-04-23 06:30] VITALS: BP 105/56; PULSE 85; RESP 16; TEMP 36.9; O2SAT 100
[2020-04-23] MEDS: clonazePAM 0.5 MG TABLET PO ×3 (09:25→20:45)
[2020-04-23] MEDS: Lithium Carbonate ER 450 MG TABLET.ER PO ×2 (09:25→20:45)
[2020-04-23] MEDS: Perphenazine 4 MG TABLET PO (09:25)
[2020-04-23 09:34] VITALS: BP 108/58; PULSE 85
[2020-04-23] MEDS: Propranolol HCL 20 MG TABLET PO ×2 (09:34→20:44)
--- NOTE | 2020-04-23 10:12 | HO.PSYCHPN ---
Subjective Subjective Date of Service: 04/23/20 Reason For Visit: mood swings Subjective Notes: Conditional Voluntary Interim History: Lauren is considerably brighter and more engaged. She has no SI and no intrusive thoughts. She states that she feels ready to go home and this has been arranged with her mother who agrees to accpet her home tomorrow. Medication Compliance: Yes Side effects from medications: No Attending Groups: Yes Review of Systems Acute medical concerns: No Medical Review of Systems: unchanged Mental Status Exam Mental Status Exam Patient Appearance: Well Grooomed Patient Orientation: Person, Place and Time Level of Consciousness: Awake Patient Behavior: Appropriate Mood Description: Calm Affect Description: Calm Ability to Follow Directions: Fair Speech Pattern: Clear Memory Description: Intact Hallucinations: None Delusions: Not Present Thought Process: Intact Thought Content: positive for Intact, positive for Circumstantial, negative for Suicidal Ideation and negative for Homicidal Ideation Depressive Symptoms: Low Self Esteem Diagnostics Vital Signs (24Hr): Vital Signs - 24 hr 04/22/20 18:00 04/22/20 22:27 04/23/20 06:30 Temperature 97.8 F 98.4 F Pulse Rate 111 H 111 H 85 Respiratory Rate 16 Blood Pressure 101/62 101/62 105/56 L Pulse Oximetry 100 04/23/20 09:34 Temperature Pulse Rate 85 Respiratory Rate Blood Pressure 108/58 L Pulse Oximetry Body Mass Index 22.6 Labs Results: 04/17/20 15:42 04/17/20 15:42 Medications Medications Current Medications Generic Name Dose Route Start Last Admin Trade Name Freq PRN Reason Stop Dose Admin Acetaminophen 650 mg 04/18/20 16:55 Acetaminophen 325 Mg Tablet PO Q6H PRN Headache/Pain Mild Scale (1-3) Al Hydroxide/Mg Hydroxide 30 ml 04/18/20 16:55 Magnesium Hydrox/Alum Hydrox 30 Ml Oral.Susp PO Q6H PRN Heartburn/Nausea Clonazepam 0.5 mg 04/20/20 15:00 04/23/20 09:25 Clonazepam 0.5 Mg Tablet PO 0.5 mg TID [facility] Administration Divalproex Sodium 1,500 mg 04/17/20 21:00 04/22/20 22:26 Divalproex Sodium Er 500 Mg Tab.Er.24h PO 1,500 mg BEDTIME [facility] Administration Hydroxyzine HCl 25 mg 12/10/20 16:55 Hydroxyzine Hcl 25 Mg Tablet PO BEDTIME PRN Anxiety [place] Carbonate 450 mg 04/17/20 21:00 04/23/20 09:25 [place] Carbonate Er 450 Mg Tablet.Er PO 450 mg BID [facility] Administration Magnesium Hydroxide 30 ml 04/18/20 16:55 Milk Of Magnesia 30 Ml Oral.Susp PO DAILY PRN Constipation Melatonin 9 mg 04/17/20 21:00 04/22/20 22:27 Melatonin 3 Mg Tablet PO 9 mg BEDTIME [facility] Administration Perphenazine 8 mg 04/17/20 21:00 04/22/20 22:28 Perphenazine 8 Mg Tablet PO 8 mg BEDTIME [facility] Administration Perphenazine 4 mg 04/21/20 10:00 04/23/20 09:25 Perphenazine 4 Mg Tablet PO 4 mg DAILY [facility] Administration Propranolol HCl 20 mg 04/21/20 09:00 04/23/20 09:34 Propranolol Hcl 20 Mg Tablet PO 20 mg BID G[facility] Administration Protocol Trazodone HCl 150 mg 04/17/20 21:00 04/22/20 22:28 Trazodone Hcl 50 Mg Tablet PO 150 mg BEDTIME [facility] Administration Trazodone HCl 50 mg 04/18/20 16:55 Trazodone Hcl 50 Mg Tablet PO BEDTIME PRN Insomnia Allergies Allergies Allergy/AdvReac Type Severity Reaction Status Date / Time insect venom [MOSQUITO] Allergy Unknown UNKNOWN Unverified 01/25/20 17:02 paliperidone [From INVEGA] Allergy Unknown DYSTONIC Unverified 01/25/20 17:02 REACTION haloperidol [HALOPERIDOL] AdvReac Intermediate Dystonic Unverified 01/25/20 17:02 reaction Assessment & Plan Assessment & Plan (1) Bipolar disorder: Qualifiers: Active/Remission status: currently active Current bipolar episode type: depressed Current episode severity: severe Psychotic features: with psychotic features Qualified Code(s): F31.5 - Bipolar disorder, current episode depressed, severe, with psychotic features Status: Acute Code(s): F31.9 - Bipolar disorder, unspecified Assessment and Plan: CT current plan Greater than 50% of the session was spent on counseling and/or coordination of care Patient educated on: diagnosis and medication risk/benefits Informed Consent: understands Reason for contiued inpatient stay Substantial Risk for: rapid decompensation
[2020-04-23 20:30] VITALS: BP 98/67; PULSE 96; TEMP 36.8
[2020-04-23] MEDS: Melatonin 3 MG TABLET 9 MG PO (20:43)
[2020-04-23 20:44] VITALS: BP 98/67; PULSE 96
[2020-04-23] MEDS: Divalproex Sodium ER 500 MG TAB.ER.24H 1500 MG PO (20:44)
[2020-04-23] MEDS: Perphenazine 8 MG TABLET PO (20:46)
[2020-04-23] MEDS: traZODone HCL 50 MG TABLET 150 MG PO (20:46)
[2020-04-24 06:20] VITALS: BP 89/49; PULSE 81; RESP 16; TEMP 37.1; O2SAT 97
[2020-04-24 09:00] VITALS: BP 88/51; PULSE 90; TEMP 36.2
--- NOTE | 2020-04-24 09:12 | PM.PSYDC ---
DS: Providers Provider Date of admission: 04/18/20 16:55 Date of discharge: 04/24/20 Primary care physician: [facility] Attending physician on admission: Cari Eldridge Attending physician on discharge: Cari Eldridge DS: Diagnosis Discharge Diagnosis (1) Bipolar disorder: Status: Acute DS: Medications Discharge Medications Home Medications: Home Medications Medication Instructions Recorded Confirmed clonazepam 0.5 mg PO BID 04/17/20 04/17/20 divalproex 1,500 mg PO BEDTIME 04/17/20 04/17/20 lithium carbonate 450 mg PO BID 04/17/20 04/17/20 melatonin 10 mg PO BEDTIME 04/17/20 04/17/20 perphenazine 4 mg PO DAILY PRN 04/17/20 04/17/20 perphenazine 8 mg PO BEDTIME 04/17/20 04/17/20 propranolol 80 mg PO QAM 04/17/20 04/17/20 trazodone 150 mg PO BEDTIME 04/17/20 04/17/20 Discharge Plan Discharge Patient Disposition: Home, Self-Care Referrals: Sahara Ferreira (therapist) [Other] - 04/29/20 4:45 pm (Telehealth appointment) Clarisse Strauss (psychiatrist) [Other] - 04/26/20 1:40 pm (Telehealth appointment) Gary JERONIMO [Other] - 04/25/20 (Plan is to have service begin on 04/25/20 weather permitting. If weather postpones start date it will be the following day. fax- [phone] ) [place] [Primary Care Provider] - (PT STATES THAT SHE AND HER MOTHER WILL SCHEDULE APPOINTMENTS.) Discharge Medications: New clonazepam 0.5 mg Tablet 0.5 mg PO TID Qty: 90 RF: 0 propranolol 20 mg Tablet 20 mg PO BID Qty: 60 RF: 0 Continued lithium carbonate 450 mg Tablet Extended Release 450 mg PO BID Qty: 60 RF: 0 trazodone 150 mg Tablet 150 mg PO BEDTIME Qty: 30 RF: 0 divalproex 500 mg Tablet Extended Release 24 Hr 1,500 mg PO BEDTIME Qty: 90 RF: 0 perphenazine 4 mg Tablet 4 mg PO DAILY PRN (Reason: Psychosis) Qty: 30 RF: 0 perphenazine 8 mg Tablet 8 mg PO BEDTIME Qty: 30 RF: 0 melatonin 5 mg Tablet 10 mg PO BEDTIME Qty: 60 RF: 0 Discontinued propranolol 80 mg Capsule,Extended Release 24 Hr 80 mg PO QAM RF: 0 clonazepam 0.5 mg Tablet 0.5 mg PO BID RF: 0 Discharge Orders: Discharge Order (Routine); Ordered 04/24/20 Ordered By: Cari Eldridge Diet: advance to usual diet Activity on Discharge: No Restrictions Stand Alone Forms: Community Support Discharge Date/Time: 04/24/20 01:55 Visit Report Forms: Patient Portal Discharge page Care Plan Goals: Reduce depression Health Concerns: Depressed mood Thoughts of self harm Plan of Treatment: Stay on your medication as prescribed Go to your appointments Mental Status Exam Mental Status Exam Patient Appearance: Well Grooomed Patient Orientation: Person, Place and Time Level of Consciousness: Awake Patient Behavior: Appropriate Mood Description: Calm Affect Description: Calm Ability to Follow Directions: Fair Speech Pattern: Clear Memory Description: Intact Hallucinations: None Delusions: Not Present Thought Process: Intact Thought Content: positive for Intact, positive for Circumstantial, negative for Suicidal Ideation and negative for Homicidal Ideation Depressive Symptoms: Low Self Esteem Data Data Completed and Pending Completed studies during hospitalization [Text1]: 04/17/20 04/17/20 04/17/20 15:42 15:42 15:42 WBC 5.7 RBC 4.31 Hgb 13.2 Hct 39.6 MCV 91.9 MCH 30.6 MCHC 33.3 RDW 11.9 Plt Count 229 MPV 10.0 Immature Gran % (Auto) 0.2 Neut % (Auto) 60.4 Lymph % (Auto) 30.1 [place] % (Auto) 7.9 Eos % (Auto) 0.9 Baso % (Auto) 0.5 Lymph # (Auto) 1.7 [place] # (Auto) 0.5 Eos # (Auto) 0.1 Baso # (Auto) 0.0 Abs Immat Gran (auto) 0.01 Absolute Neuts (auto) 3.4 Absolute Nucleated RBC 0.000 Nucleated RBC % (auto) 0.0 Sodium 135 Potassium 4.2 Chloride 106 Carbon Dioxide 21 L Anion Gap 12 BUN 7 L Creatinine 0.62 Estim Creat Clear Calc 135.5 Estimated GFR > 60 Random Glucose 92 Fasting Glucose Calcium 9.3 Total Bilirubin 0.4 AST 20 ALT 16 Alkaline Phosphatase 67 Total Protein 7.4 Albumin 4.3 Triglycerides Cholesterol LDL Cholesterol, Calc HDL Cholesterol TSH Urine Color Urine Appearance Urine pH Ur Specific [place] Urine Protein Urine Glucose (UA) Urine Ketones Urine Blood Urine Nitrite Ur Leukocyte Esterase Urine RBC Urine WBC Ur Squamous Epith Cells Urine Bacteria Urine Test Urine Opiates Screen Ur Barbiturates Screen Valproic Acid Ur Phencyclidine Scrn Ur Amphetamines Screen U Benzodiazepines Scrn [place] 0.41 L Urine Cocaine Screen U Marijuana (THC) Screen Ethyl Alcohol COVID-19 (SIENNA) COVID-19 [employer] 04/17/20 04/17/20 04/17/20 15:42 15:42 15:42 WBC RBC Hgb Hct MCV MCH MCHC RDW Plt Count MPV Immature Gran % (Auto) Neut % (Auto) Lymph % (Auto) [place] % (Auto) Eos % (Auto) Baso % (Auto) Lymph # (Auto) [place] # (Auto) Eos # (Auto) Baso # (Auto) Abs Immat Gran (auto) Absolute Neuts (auto) Absolute Nucleated RBC Nucleated RBC % (auto) Sodium Potassium Chloride Carbon Dioxide Anion Gap BUN Creatinine Estim Creat Clear Calc Estimated GFR Random Glucose Fasting Glucose Calcium Total Bilirubin AST ALT Alkaline Phosphatase Total Protein Albumin Triglycerides Cholesterol LDL Cholesterol, Calc HDL Cholesterol TSH Urine Color YELLOW Urine Appearance CLEAR Urine pH 7.5 Ur Specific [place] 1.020 Urine Protein NEG Urine Glucose (UA) NEG Urine Ketones 5 Urine Blood NEG Urine Nitrite NEG Ur Leukocyte Esterase NEG Urine RBC 0 Urine WBC 0 Ur Squamous Epith Cells 1+ Urine Bacteria 1+ Urine Test NEGATIVE Urine Opiates Screen Not Detected Ur Barbiturates Screen Not Detected Valproic Acid Ur Phencyclidine Scrn Not Detected Ur Amphetamines Screen Not Detected U Benzodiazepines Scrn Not Detected [place] Urine Cocaine Screen Not Detected U Marijuana (THC) Screen Not Detected Ethyl Alcohol < 10 COVID-19 (SIENNA) COVID-19 [employer] 04/18/20 04/19/20 04/19/20 13:54 07:50 07:50 WBC RBC Hgb Hct MCV MCH MCHC RDW Plt Count MPV Immature Gran % (Auto) Neut % (Auto) Lymph % (Auto) [place] % (Auto) Eos % (Auto) Baso % (Auto) Lymph # (Auto) [place] # (Auto) Eos # (Auto) Baso # (Auto) Abs Immat Gran (auto) Absolute Neuts (auto) Absolute Nucleated RBC Nucleated RBC % (auto) Sodium Potassium Chloride Carbon Dioxide Anion Gap BUN Creatinine Estim Creat Clear Calc Estimated GFR Random Glucose Fasting Glucose 90 Calcium Total Bilirubin AST ALT Alkaline Phosphatase Total Protein Albumin Triglycerides 70 Cholesterol 151 LDL Cholesterol, Calc 85 HDL Cholesterol 52 TSH 7.79 H Urine Color Urine Appearance Urine pH Ur Specific [place] Urine Protein Urine Glucose (UA) Urine Ketones Urine Blood Urine Nitrite Ur Leukocyte Esterase Urine RBC Urine WBC Ur Squamous Epith Cells Urine Bacteria Urine Test Urine Opiates Screen Ur Barbiturates Screen Valproic Acid 76.0 Ur Phencyclidine Scrn Ur Amphetamines Screen U Benzodiazepines Scrn [place] Urine Cocaine Screen U Marijuana (THC) Screen Ethyl Alcohol COVID-19 (SIENNA) Negative COVID-19 Clin Com See Note DS: Summary Hospital Course Hospital Course: Individual is an Chadian speaking, female who arrived to [facility] for crisis evaluation due to her mother requesting help when pt stated suicidal ideation with plan to kill her self using one of her brothers construction tools from the house. This is one of several admission to and she was last admitted in November 2019. She was referred for admission by [facility] crisis. Pt reported feeling depressed, sad and active SI. N noted her to be suffering from delusions centered in her self-esteem where she feels she is bad. She states I don't want to exist , and feels she is too fat . Pt made comments that her mother cared for her siblings more than her which increased pts idea there is no point in existing . She insists that her family does not like her. She has not been taking her medication consistently lately, has been isolating and not taking care of her basic needs. She reports that she does feel safe on the unit, and is hopeful that she can feel better. Past Psychiatric History: Multiple admissions to She receives services through [facility] Hospital Course Lauren rapidly re-compensated once she was back on her medication as prescribed. She became engaged with others and she had no SI. She was stable and at baseline and a DC was planned Status at Discharge Functional status at discharge: independent ambulation Overall status at discharge: patient is progressing back to baseline Time Spent with Patient Time attestation: Total time spent providing and/or coordinating discharge services:
[2020-04-24 10:27] LABS: Lithium 0.63 mmol/L (0.60-1.20)
[2020-04-24] MEDS: Lithium Carbonate ER 450 MG TABLET.ER PO (10:46)
[2020-04-24] MEDS: clonazePAM 0.5 MG TABLET PO (10:46)
[2020-04-24] MEDS: Perphenazine 4 MG TABLET PO (10:46)
[2020-04-24 10:49] LABS: Valproate 89.9 mcg/mL (50.0-100.0)
[2020-04-24 10:53] VITALS: BP 88/51; PULSE 90
== END 2020-04-24 01:55 | disposition home or self-care (01) | DRG 753 ==
LOC: HO.ED 16:18 → HO.PM5 04-18 17:02
PROVIDERS: Nurse Practitioner Primary Care; Admitting Provider Psychiatry & Neurology Psychiatry; Emergency Provider Emergency Medicine Emergency Medical Services; Visit Provider Psychiatry & Neurology Psychiatry
DX: F31.5 Bipolar disorder, current episode depressed, severe, with psychotic features (principal); R45.851 Suicidal ideations; F17.210 Nicotine dependence, cigarettes, uncomplicated; Z71.6 Tobacco abuse counseling; Z20.828 Contact with and (suspected) exposure to other viral communicable diseases; Z79.899 Other long term (current) drug therapy
CPT/HCPCS: 36415; 80053; 80061; 80164; 80178; 80307; 80320; 81001; 81025; 82947; 84443; 85025; 87635; 99232; 99285

== ENCOUNTER 2020-06-14 21:51 | Emergency (ER) | payer MEDICAID, SELFPAY ==
[2020-06-14 22:24] VITALS: BP 103/61; PULSE 96; RESP 18; TEMP 36.6; O2SAT 98; BMI 25.9
--- NOTE | 2020-06-14 22:39 | ED_ITS ---
HPI - General Adult General Chief complaint: Psychiatric Symptoms <Nasreen Combs MD - Last Filed: 06/15/20 03:56> Stated complaint: crisis <Nasreen Combs MD - Last Filed: 06/15/20 03:56> Time Seen by Provider: 06/14/20 22:38 <Nasreen Combs MD - Last Filed: 06/15/20 03:56> Source: patient <Nasreen Combs MD - Last Filed: 06/15/20 03:56> Mode of arrival: ambulatory <Nasreen Combs MD - Last Filed: 06/15/20 03:56> Limitations: no limitations <Nasreen Combs MD - Last Filed: 06/15/20 03:56> History of Present Illness HPI narrative: A 20-year-old female history of bipolar disorder, and history of thoughts of self-harm patient required psych hospitalization in the past, patient before arrival had a verbal argument with her mom told her kill me, I do not want to live anymore patient in the ED keep saying that I am a bad person I Wanna live anymore. <Nasreen Combs MD - Last Filed: 06/15/20 03:56> Related Data Home medications: Previous Rx's Medication Instructions Recorded clonazepam 0.5 mg PO TID #90 tab 04/24/20 divalproex 1,500 mg PO BEDTIME #90 tab 04/24/20 lithium carbonate 450 mg PO BID #60 tab 04/24/20 melatonin 10 mg PO BEDTIME #60 tab 04/24/20 perphenazine 4 mg PO DAILY PRN #30 tab 04/24/20 perphenazine 8 mg PO BEDTIME #30 tab 04/24/20 propranolol 20 mg PO BID #60 tab 04/24/20 trazodone 150 mg PO BEDTIME #30 tab 04/24/20 <Nasreen Combs MD - Last Filed: 06/15/20 03:56> Allergies/adverse reactions: Allergies Allergy/AdvReac Type Severity Reaction Status Date / Time insect venom [MOSQUITO] Allergy Unknown UNKNOWN Unverified 01/25/20 17:02 paliperidone [From INVEGA] Allergy Unknown DYSTONIC Unverified 01/25/20 17:02 REACTION haloperidol [HALOPERIDOL] AdvReac Intermediate Dystonic Unverified 01/25/20 17:02 reaction <Nasreen Combs MD - Last Filed: 06/15/20 03:56> Review of Systems Review of Systems: All other systems are reviewed and are negative Constitutional: Reports as per HPI and Reports no additional constitutional complaints Eyes: Reports as per HPI and Reports no additional eye complaints Reports system reviewed and no additional complaints, except as documented Cardiovascular: Reports as per HPI and Reports no additional cardiovascular complaints Respiratory: Reports as per HPI and Reports no additional respiratory complaints Gastrointestinal: Reports as per HPI and Reports no additional gastrointestinal complaints Genitourinary: Reports no additional female genitourinary complaints Musculoskeletal: Reports no additional musculoskeletal complaints Skin/Breast: Reports system reviewed and no additional complaints, except as docu Psychiatric: Reports no additional psychiatric complaints Endocrine: Reports no additional endocrine complaints Hematologic/Lymphatic: Reports no additional hematologic/lymphatic complaints Allergic/Immunologic: Reports no additional allergic/immunologic complaints Reports system reviewed and no additional complaints, except as documented and Reports Abnormal speech present <Nasreen Combs MD - Last Filed: 06/15/20 03:56> [facility] Past Medical History Medical History: Medical History Anxiety Bipolar 1 disorder Depression PTSD (post-traumatic stress disorder) <Nasreen Combs MD - Last Filed: 06/15/20 03:56> Social History Social History: Social History Household Members: Family Housing: Apartment Alcohol intake: former Smoking Status: Current every day smoker Tobacco Type: Cigarette Cigarettes Per Day: 2 Years Smoked: 3 Smoked in Last 30 Days: Yes Second Hand Smoke Exposure: Yes Use of substances other than those prescribed or required for medical reasons: No Advance Directives: No Advance Directives Information Provided: No service: No Sexual orientation: Bisexual <Nasreen Combs MD - Last Filed: 06/15/20 03:56> Physical Exam Vital Signs: Vital Signs: Last Vital Signs Temp 97.7 F 06/15/20 06:49 Pulse 71 06/15/20 06:49 Resp 17 06/15/20 06:49 BP 103/43 L 06/15/20 06:49 Pulse Ox 98 06/15/20 06:49 Body Mass Index 25.9 Vital signs have been reviewed as normal and appeared to be correct. Blood pressure normal. Heart rate normal. Respiration rate normal. Temperature normal. Oxygen saturation normal. <Nasreen Combs MD - Last Filed: 06/15/20 03:56> Vital Signs: Last Vital Signs Temp 97.7 F 06/15/20 06:49 Pulse 71 06/15/20 06:49 Resp 17 06/15/20 06:49 BP 103/43 L 06/15/20 06:49 Pulse Ox 98 06/15/20 06:49 Body Mass Index 25.9 <Galo Jain NP - Last Filed: 06/15/20 08:18> Appearance: Alert. Oriented X3. No acute distress. Head: Normal external exam. Normocephalic. Atraumatic. No Rios signs noted. No raccoon eyes noted Eyes: PERRLA. EOMI. Conjunctiva and sclera normal. Eyelids normal. ENT: EAC normal. TM's Normal. Pharynx normal. Uvula midline. Moist mucous membranes. No trismus noted. No drooling noted. No muffled voice noted. Neck: Normal inspection. Neck supple. FROM. No adenopathy. Thyroid Normal. No meningeal signs. No neck mass noted. CVS: Normal heart rate and rhythm. Heart sound normal. No murmurs noted. Pulses normal throughout. Respiratory: No respiratory distress. Painless inspiration. Breath sounds normal. No wheezes/rales/rhonchi noted. Chest nontender. No accessory muscle usage noted or decreased air movement noted. Abdomen: Soft and nontender. Bowel sounds normal in all 4 quadrants. No dis tention noted. No organomegaly noted. No visible injury noted. Back: No CVA tenderness. Full range of motion noted. Skin: Skin warm and dry. Normal skin color. Normal skin turgor. No rashes/les ions/lacerations noted. Extremities: No lower extremity edema. Extremities exhibit normal range of motion. Extremities nontender. Neuro: Oriented X 3. No motor deficit. No sensory deficit. Psych: Patient appear mildly disheveled, oriented x3, awake, appropriate behavior, anxious mood, flat affect, fairly following direction, speech pattern is clear, no hallucination, thought process is goal oriented and slowed thinking, admitted that she is a bit person and she does not Wanna continue to live no specific plan to hurt herself. <Nasreen Combs MD - Last Filed: 0 06/15/20 03:56> Course Course Course Narrative: 20-year-old female history of bipolar presented today with suicidal gesturing after having impulsive disorder with her mom, patient needed several psych admissions in the past. Will get BHN. <Nasreen Combs MD - Last Filed: 06/15/20 03:56> Reevaluation(s) Reevaluation #1: Patient has been evaluated by [facility]N in, patient was made Section 12, bed search is underway. <Nasreen Combs MD - Last Filed: 06/15/20 03:56> Time: 03:56 <Nasreen Combs MD - Last Filed: 06/15/20 03:56> Medical Decision Making Lab Data Result diagrams: : 06/15/20 00:01 06/15/20 00:01 <Nasreen Combs MD - Last Filed: 06/15/20 03:56> Labs: Lab Results 06/14/20 06/14/20 06/14/20 Range/Units 23:13 23:14 23:29 WBC (4.8-10.8) X10*3/uL RBC (4.20-5.50) X10*6/uL Hgb (12.0-16.0) g/dl Hct (37-47) % MCV (80-98) fL MCH (27.0-33.0) pg MCHC (31.0-35.0) g/dl RDW (11.0-16.0) % Plt Count (160-400) X10*3/uL MPV (9.4-12.3) fL Immature Gran % (Auto) (0.0-0.4) % Neut % (Auto) (45-73) % Lymph % (Auto) (20-40) % [place] % (Auto) (2-11) % Eos % (Auto) (0-4) % Baso % (Auto) (0-2) % Lymph # (Auto) (1.2-4.9) X10*3/uL [place] # (Auto) (0.1-1.2) X10*3/uL Eos # (Auto) (0.0-0.4) X10*3/uL Baso # (Auto) (0.0-0.2) X10*3/uL Abs Immat Gran (auto) (0.00-0.03) X10*3/uL Absolute Neuts (auto) (2.0-8.3) X10*3/uL Absolute Nucleated RBC (0.0-0.012) X10*3/uL Nucleated RBC % (auto) (0.0-0.2) /100WBC Sodium (135-145) mmol/L Potassium (3.3-5.1) mmol/L Chloride (96-108) mmol/L Carbon Dioxide (22-29) mmol/L Anion Gap (12-20) BUN (9-16) mg/dL Creatinine (0.5-1.4) mg/dL Estim Creat Clear Calc Estimated GFR Random Glucose (60-115) mg/dL Calcium (8.4-10.2) mg/dL Urine Color DARK YELLOW Urine Appearance HAZY Urine pH 6.0 (5.0-8.0) Ur Specific [place] 1.025 (1.005-1.025) Urine Protein NEG (NEG-TRACE) MG/DL Urine Glucose (UA) NEG (NEG) MG/DL Urine Ketones 5 (NEG) MG/DL Urine Blood NEG (NEG) Urine Nitrite NEG (NEG) Ur Leukocyte Esterase NEG (NEG) Urine Test NEGATIVE (NEGATIVE) Urine Opiates Screen Not Detected (Not Detect) Ur Barbiturates Screen Not Detected (Not Detect) Valproic Acid (50.0-100.0) mcg/mL Ur Phencyclidine Scrn Not Detected (Not Detect) Ur Amphetamines Screen Not Detected (Not Detect) U Benzodiazepines Scrn Not Detected (Not Detect) [place] (0.60-1.20) mmol/L Urine Cocaine Screen Not Detected (Not Detect) U Marijuana (THC) Screen Not Detected (Not Detect) Ethyl Alcohol mg/dL COVID-19 (SIENNA) Negative (Negative) COVID-19 Clin Com See Note 06/15/20 06/15/20 06/15/20 Range/Units 00:01 00:01 00:01 WBC 9.1 (4.8-10.8) X10*3/uL RBC 4.09 L (4.20-5.50) X10*6/uL Hgb 12.7 (12.0-16.0) g/dl Hct 39.1 (37-47) % MCV 95.6 (80-98) fL MCH 31.1 (27.0-33.0) pg MCHC 32.5 (31.0-35.0) g/dl RDW 11.9 (11.0-16.0) % Plt Count 264 (160-400) X10*3/uL MPV 9.8 (9.4-12.3) fL Immature Gran % (Auto) 0.3 (0.0-0.4) % Neut % (Auto) 59.1 (45-73) % Lymph % (Auto) 33.0 (20-40) % [place] % (Auto) 5.8 (2-11) % Eos % (Auto) 1.4 (0-4) % Baso % (Auto) 0.4 (0-2) % Lymph # (Auto) 3.0 (1.2-4.9) X10*3/uL [place] # (Auto) 0.5 (0.1-1.2) X10*3/uL Eos # (Auto) 0.1 (0.0-0.4) X10*3/uL Baso # (Auto) 0.0 (0.0-0.2) X10*3/uL Abs Immat Gran (auto) 0.03 (0.00-0.03) X10*3/uL Absolute Neuts (auto) 5.4 (2.0-8.3) X10*3/uL Absolute Nucleated RBC 0.000 (0.0-0.012) X10*3/uL Nucleated RBC % (auto) 0.0 (0.0-0.2) /100WBC Sodium 136 (135-145) mmol/L Potassium 4.1 (3.3-5.1) mmol/L Chloride 103 (96-108) mmol/L Carbon Dioxide 24 (22-29) mmol/L Anion Gap 13 (12-20) BUN 6 L (9-16) mg/dL Creatinine 0.76 (0.5-1.4) mg/dL Estim Creat Clear Calc 120.6 Estimated GFR > 60 Random Glucose 102 (60-115) mg/dL Calcium 9.1 (8.4-10.2) mg/dL Urine Color Urine Appearance Urine pH (5.0-8.0) Ur Specific [place] (1.005-1.025) Urine Protein (NEG-TRACE) MG/DL Urine Glucose (UA) (NEG) MG/DL Urine Ketones (NEG) MG/DL Urine Blood (NEG) Urine Nitrite (NEG) Ur Leukocyte Esterase (NEG) Urine Test (NEGATIVE) Urine Opiates Screen (Not Detect) Ur Barbiturates Screen (Not Detect) Valproic Acid (50.0-100.0) mcg/mL Ur Phencyclidine Scrn (Not Detect) Ur Amphetamines Screen (Not Detect) U Benzodiazepines Scrn (Not Detect) [place] (0.60-1.20) mmol/L Urine Cocaine Screen (Not Detect) U Marijuana (THC) Screen (Not Detect) Ethyl Alcohol < 10 mg/dL COVID-19 (SIENNA) (Negative) COVID-19 Clin Com 06/15/20 06/15/20 Range/Units 00:01 00:01 WBC (4.8-10.8) X10*3/uL RBC (4.20-5.50) X10*6/uL Hgb (12.0-16.0) g/dl Hct (37-47) % MCV (80-98) fL MCH (27.0-33.0) pg MCHC (31.0-35.0) g/dl RDW (11.0-16.0) % Plt Count (160-400) X10*3/uL MPV (9.4-12.3) fL Immature Gran % (Auto) (0.0-0.4) % Neut % (Auto) (45-73) % Lymph % (Auto) (20-40) % [place] % (Auto) (2-11) % Eos % (Auto) (0-4) % Baso % (Auto) (0-2) % Lymph # (Auto) (1.2-4.9) X10*3/uL [place] # (Auto) (0.1-1.2) X10*3/uL Eos # (Auto) (0.0-0.4) X10*3/uL Baso # (Auto) (0.0-0.2) X10*3/uL Abs Immat Gran (auto) (0.00-0.03) X10*3/uL Absolute Neuts (auto) (2.0-8.3) X10*3/uL Absolute Nucleated RBC (0.0-0.012) X10*3/uL Nucleated RBC % (auto) (0.0-0.2) /100WBC Sodium (135-145) mmol/L Potassium (3.3-5.1) mmol/L Chloride (96-108) mmol/L Carbon Dioxide (22-29) mmol/L Anion Gap (12-20) BUN (9-16) mg/dL Creatinine (0.5-1.4) mg/dL Estim Creat Clear Calc Estimated GFR Random Glucose (60-115) mg/dL Calcium (8.4-10.2) mg/dL Urine Color Urine Appearance Urine pH (5.0-8.0) Ur Specific [place] (1.005-1.025) Urine Protein (NEG-TRACE) MG/DL Urine Glucose (UA) (NEG) MG/DL Urine Ketones (NEG) MG/DL Urine Blood (NEG) Urine Nitrite (NEG) Ur Leukocyte Esterase (NEG) Urine Test (NEGATIVE) Urine Opiates Screen (Not Detect) Ur Barbiturates Screen (Not Detect) Valproic Acid 66.8 (50.0-100.0) mcg/mL Ur Phencyclidine Scrn (Not Detect) Ur Amphetamines Screen (Not Detect) U Benzodiazepines Scrn (Not Detect) [place] 0.94 (0.60-1.20) mmol/L Urine Cocaine Screen (Not Detect) U Marijuana (THC) Screen (Not Detect) Ethyl Alcohol mg/dL COVID-19 (SIENNA) (Negative) COVID-19 Clin Com <Nasreen Combs MD - Last Filed: 06/15/20 03:56> Lab Results 06/14/20 06/14/20 06/14/20 Range/Units 23:13 23:14 23:29 WBC (4.8-10.8) X10*3/uL RBC (4.20-5.50) X10*6/uL Hgb (12.0-16.0) g/dl Hct (37-47) % MCV (80-98) fL MCH (27.0-33.0) pg MCHC (31.0-35.0) g/dl RDW (11.0-16.0) % Plt Count (160-400) X10*3/uL MPV (9.4-12.3) fL Immature Gran % (Auto) (0.0-0.4) % Neut % (Auto) (45-73) % Lymph % (Auto) (20-40) % [place] % (Auto) (2-11) % Eos % (Auto) (0-4) % Baso % (Auto) (0-2) % Lymph # (Auto) (1.2-4.9) X10*3/uL [place] # (Auto) (0.1-1.2) X10*3/uL Eos # (Auto) (0.0-0.4) X10*3/uL Baso # (Auto) (0.0-0.2) X10*3/uL Abs Immat Gran (auto) (0.00-0.03) X10*3/uL Absolute Neuts (auto) (2.0-8.3) X10*3/uL Absolute Nucleated RBC (0.0-0.012) X10*3/uL Nucleated RBC % (auto) (0.0-0.2) /100WBC Sodium (135-145) mmol/L Potassium (3.3-5.1) mmol/L Chloride (96-108) mmol/L Carbon Dioxide (22-29) mmol/L Anion Gap (12-20) BUN (9-16) mg/dL Creatinine (0.5-1.4) mg/dL Estim Creat Clear Calc Estimated GFR Random Glucose (60-115) mg/dL Calcium (8.4-10.2) mg/dL Urine Color DARK YELLOW Urine Appearance HAZY Urine pH 6.0 (5.0-8.0) Ur Specific [place] 1.025 (1.005-1.025) Urine Protein NEG (NEG-TRACE) MG/DL Urine Glucose (UA) NEG (NEG) MG/DL Urine Ketones 5 (NEG) MG/DL Urine Blood NEG (NEG) Urine Nitrite NEG (NEG) Ur Leukocyte Esterase NEG (NEG) Urine Test NEGATIVE (NEGATIVE) Urine Opiates Screen Not Detected (Not Detect) Ur Barbiturates Screen Not Detected (Not Detect) Valproic Acid (50.0-100.0) mcg/mL Ur Phencyclidine Scrn Not Detected (Not Detect) Ur Amphetamines Screen Not Detected (Not Detect) U Benzodiazepines Scrn Not Detected (Not Detect) [place] (0.60-1.20) mmol/L Urine Cocaine Screen Not Detected (Not Detect) U Marijuana (THC) Screen Not Detected (Not Detect) Ethyl Alcohol mg/dL COVID-19 (SIENNA) Negative (Negative) COVID-19 Clin Com See Note 06/15/20 06/15/20 06/15/20 Range/Units 00:01 00:01 00:01 WBC 9.1 (4.8-10.8) X10*3/uL RBC 4.09 L (4.20-5.50) X10*6/uL Hgb 12.7 (12.0-16.0) g/dl Hct 39.1 (37-47) % MCV 95.6 (80-98) fL MCH 31.1 (27.0-33.0) pg MCHC 32.5 (31.0-35.0) g/dl RDW 11.9 (11.0-16.0) % Plt Count 264 (160-400) X10*3/uL MPV 9.8 (9.4-12.3) fL Immature Gran % (Auto) 0.3 (0.0-0.4) % Neut % (Auto) 59.1 (45-73) % Lymph % (Auto) 33.0 (20-40) % [place] % (Auto) 5.8 (2-11) % Eos % (Auto) 1.4 (0-4) % Baso % (Auto) 0.4 (0-2) % Lymph # (Auto) 3.0 (1.2-4.9) X10*3/uL [place] # (Auto) 0.5 (0.1-1.2) X10*3/uL Eos # (Auto) 0.1 (0.0-0.4) X10*3/uL Baso # (Auto) 0.0 (0.0-0.2) X10*3/uL Abs Immat Gran (auto) 0.03 (0.00-0.03) X10*3/uL Absolute Neuts (auto) 5.4 (2.0-8.3) X10*3/uL Absolute Nucleated RBC 0.000 (0.0-0.012) X10*3/uL Nucleated RBC % (auto) 0.0 (0.0-0.2) /100WBC Sodium 136 (135-145) mmol/L Potassium 4.1 (3.3-5.1) mmol/L Chloride 103 (96-108) mmol/L Carbon Dioxide 24 (22-29) mmol/L Anion Gap 13 (12-20) BUN 6 L (9-16) mg/dL Creatinine 0.76 (0.5-1.4) mg/dL Estim Creat Clear Calc 120.6 Estimated GFR > 60 Random Glucose 102 (60-115) mg/dL Calcium 9.1 (8.4-10.2) mg/dL Urine Color Urine Appearance Urine pH (5.0-8.0) Ur Specific [place] (1.005-1.025) Urine Protein (NEG-TRACE) MG/DL Urine Glucose (UA) (NEG) MG/DL Urine Ketones (NEG) MG/DL Urine Blood (NEG) Urine Nitrite (NEG) Ur Leukocyte Esterase (NEG) Urine Test (NEGATIVE) Urine Opiates Screen (Not Detect) Ur Barbiturates Screen (Not Detect) Valproic Acid (50.0-100.0) mcg/mL Ur Phencyclidine Scrn (Not Detect) Ur Amphetamines Screen (Not Detect) U Benzodiazepines Scrn (Not Detect) [place] (0.60-1.20) mmol/L Urine Cocaine Screen (Not Detect) U Marijuana (THC) Screen (Not Detect) Ethyl Alcohol < 10 mg/dL COVID-19 (SIENNA) (Negative) COVID-19 Clin Com 06/15/20 06/15/20 Range/Units 00:01 00:01 WBC (4.8-10.8) X10*3/uL RBC (4.20-5.50) X10*6/uL Hgb (12.0-16.0) g/dl Hct (37-47) % MCV (80-98) fL MCH (27.0-33.0) pg MCHC (31.0-35.0) g/dl RDW (11.0-16.0) % Plt Count (160-400) X10*3/uL MPV (9.4-12.3) fL Immature Gran % (Auto) (0.0-0.4) % Neut % (Auto) (45-73) % Lymph % (Auto) (20-40) % [place] % (Auto) (2-11) % Eos % (Auto) (0-4) % Baso % (Auto) (0-2) % Lymph # (Auto) (1.2-4.9) X10*3/uL [place] # (Auto) (0.1-1.2) X10*3/uL Eos # (Auto) (0.0-0.4) X10*3/uL Baso # (Auto) (0.0-0.2) X10*3/uL Abs Immat Gran (auto) (0.00-0.03) X10*3/uL Absolute Neuts (auto) (2.0-8.3) X10*3/uL Absolute Nucleated RBC (0.0-0.012) X10*3/uL Nucleated RBC % (auto) (0.0-0.2) /100WBC Sodium (135-145) mmol/L Potassium (3.3-5.1) mmol/L Chloride (96-108) mmol/L Carbon Dioxide (22-29) mmol/L Anion Gap (12-20) BUN (9-16) mg/dL Creatinine (0.5-1.4) mg/dL Estim Creat Clear Calc Estimated GFR Random Glucose (60-115) mg/dL Calcium (8.4-10.2) mg/dL Urine Color Urine Appearance Urine pH (5.0-8.0) Ur Specific [place] (1.005-1.025) Urine Protein (NEG-TRACE) MG/DL Urine Glucose (UA) (NEG) MG/DL Urine Ketones (NEG) MG/DL Urine Blood (NEG) Urine Nitrite (NEG) Ur Leukocyte Esterase (NEG) Urine Test (NEGATIVE) Urine Opiates Screen (Not Detect) Ur Barbiturates Screen (Not Detect) Valproic Acid 66.8 (50.0-100.0) mcg/mL Ur Phencyclidine Scrn (Not Detect) Ur Amphetamines Screen (Not Detect) U Benzodiazepines Scrn (Not Detect) [place] 0.94 (0.60-1.20) mmol/L Urine Cocaine Screen (Not Detect) U Marijuana (THC) Screen (Not Detect) Ethyl Alcohol mg/dL COVID-19 (SIENNA) (Negative) COVID-19 Clin Com <Galo Jain NP - Last Filed: 06/15/20 08:18> Discharge Plan Discharge Clinical Impression: Bipolar disorder, Depression <Nasreen Combs MD - Last Filed: 06/15/20 03:56> Patient Disposition: Admitted As Inpatient <Nasreen Combs MD - Last Filed: 06/15/20 03:56>
[2020-06-14 23:21] LABS: Glucose Urine UA NEG (NEG); Leukocyte Esterase Urine NEG (NEG); Nitrite Urine NEG (NEG); Specific Gravity - Urine 1.025 (1.005-1.025); Urine Blood NEG (NEG); Urine Ketones 5 MG/DL (NEG); Urine Protein NEG (NEG-TRACE)
[2020-06-14 23:22] LABS: Appearance Urine HAZY; Color Urine DARK YELLOW; UACC Culture Trigger NO
[2020-06-14 23:23] LABS: UPreg QC Valid YES; Urine Pregnancy NEGATIVE (NEGATIVE)
--- NOTE | 2020-06-14 23:26 | PC.NURSE ---
Report received. PT is having her labs drawn. Calm and cooperative. Waiting to be seen by N.
[2020-06-14 23:50] LABS: Amphetamine Screen Urine Not Detected (Not Detect); Barbiturates, Urine Not Detected (Not Detect); Benzodiazepines Screen Urine Not Detected (Not Detect); Cannabinoid Screen Urine Not Detected (Not Detect); Cocaine Screen Urine Not Detected (Not Detect); Opiate Screen Urine Not Detected (Not Detect); Phencyclidine Screen Urine Not Detected (Not Detect)
[2020-06-15 00:04] LABS: COVID-19 Test Negative (Negative)
[2020-06-15 00:10] LABS: Basophils Percent Auto 0.4 % (0-2); Eosinophils Absolute Auto 0.1 X10*3/uL (0.0-0.4); Eosinophils Percent Auto 1.4 % (0-4); Hematocrit 39.1 % (37-47); Hemoglobin 12.7 g/dl (12.0-16.0); Imm Gran Abs Auto 0.03 X10*3/uL (0.00-0.03); Imm Gran Pct Auto 0.3 % (0.0-0.4); MANUAL DIFF FLAG NO; Mean Corpuscular HGB Conc 32.5 g/dl (31.0-35.0); Mean Corpuscular Hemoglobin 31.1 pg (27.0-33.0); Mean Corpuscular Volume 95.6 fL (80-98); Mean Platelet Volume 9.8 fL (9.4-12.3); Monocytes Absolute Auto 0.5 X10*3/uL (0.1-1.2); Monocytes Percent Auto 5.8 % (2-11); Neutrophils Absolute Auto 5.4 X10*3/uL (2.0-8.3); Neutrophils Percent Auto 59.1 % (45-73); Platelet Count 264 X10*3/uL (160-400); Red Blood Count 4.09 X10*6/uL (4.20-5.50); Red Cell Distribution Width 11.9 % (11.0-16.0); White Blood Count 9.1 X10*3/uL (4.8-10.8)
[2020-06-15 00:26] LABS: Lithium 0.94 mmol/L (0.60-1.20)
[2020-06-15 00:30] LABS: Ethanol < 10 mg/dL
[2020-06-15 00:32] LABS: Anion Gap 13 (12-20); Blood Urea Nitrogen 6 mg/dL (9-16); Calcium 9.1 mg/dL (8.4-10.2); Carbon Dioxide 24 mmol/L (22-29); Chloride 103 mmol/L (96-108); Creatinine Clr Calc Pharmacy 120.6; Estimated Glomerular Filt Rate > 60; Glucose Random 102 mg/dL (60-115); Potassium 4.1 mmol/L (3.3-5.1); Sodium 136 mmol/L (135-145)
[2020-06-15 00:51] LABS: Valproate 66.8 mcg/mL (50.0-100.0)
--- NOTE | 2020-06-15 01:07 | PC.NURSE ---
ARMANI faxed and called. ARMANI stated that a clinician was on the way to [place] now that would be able to see the PT.
[2020-06-15 06:49] VITALS: BP 103/43; PULSE 71; RESP 17; TEMP 36.5; O2SAT 98
--- NOTE | 2020-06-15 07:00 | PC.NURSE ---
Report received. PT currently sleeping, respirations even and unlabored, in no apparent distress. PT is inpatient bedsearch.
[2020-06-15 09:04] VITALS: BP 94/56; PULSE 77; RESP 16; TEMP 36.7; O2SAT 100
[2020-06-15] MEDS: Lithium Carbonate ER 450 MG TABLET.ER PO (09:13)
[2020-06-15] MEDS: clonazePAM 0.5 MG TABLET PO ×2 (09:14→15:05)
[2020-06-15 09:16] VITALS: BP 94/56; PULSE 77
== END 2020-06-15 17:34 ==
PROVIDERS: Emergency Provider Emergency Medicine
DX: F33.1 Major depressive disorder, recurrent, moderate (principal); R45.851 Suicidal ideations; R45.87 Impulsiveness; F17.210 Nicotine dependence, cigarettes, uncomplicated; Z20.822 Contact with and (suspected) exposure to COVID-19; Z71.6 Tobacco abuse counseling; Z79.899 Other long term (current) drug therapy
CPT/HCPCS: 36415; 80048; 80164; 80178; 80307; 80320; 81003; 81025; 85025; 87635; 99284

== ENCOUNTER 2020-08-19 18:58 | Emergency (ER) | payer MEDICAID, SELFPAY ==
[2020-08-19 20:48] VITALS: BP 94/52; PULSE 77; RESP 18; TEMP 36.9; O2SAT 99; BMI 28.8
[2020-08-19 21:29] LABS: UPreg QC Valid YES; Urine Pregnancy NEGATIVE (NEGATIVE)
[2020-08-19 22:06] LABS: Amphetamine Screen Urine Not Detected (Not Detect); Barbiturates, Urine Not Detected (Not Detect); Benzodiazepines Screen Urine Not Detected (Not Detect); Cannabinoid Screen Urine POSITIVE (Not Detect); Cocaine Screen Urine Not Detected (Not Detect); Opiate Screen Urine Not Detected (Not Detect); Phencyclidine Screen Urine Not Detected (Not Detect)
== END 2020-08-19 23:59 | disposition left against medical advice (07) ==
PROVIDERS: Emergency Provider Emergency Medicine
DX: R45.851 Suicidal ideations (principal); F12.90 Cannabis use, unspecified, uncomplicated
CPT/HCPCS: 80307; 81025; 99282

== ENCOUNTER 2020-11-03 00:41 | Inpatient (IN) | payer OTHER, SELFPAY ==
[2020-11-03 00:54] VITALS: BP 113/68; PULSE 86; RESP 16; TEMP 36.6; O2SAT 99; BMI 25.8
--- NOTE | 2020-11-03 00:57 | ED_ITS ---
HPI - General Adult General Chief complaint: Psychiatric Symptoms Stated complaint: Crisis Time Seen by Provider: 11/03/20 00:51 Source: patient Mode of arrival: ambulatory Limitations: no limitations History of Present Illness HPI narrative: patient comes emergency room complaining of not taking her medications for 3 days. Patient states that she feels suicidal, no active plan, states that she feels ready to give up. Patient denies suicidal ideation Related Data Previous Rx's Medication Instructions Recorded clonazepam 0.5 mg PO TID #90 tab 04/24/20 divalproex 1,500 mg PO BEDTIME #90 tab 04/24/20 lithium carbonate 450 mg PO BID #60 tab 04/24/20 melatonin 10 mg PO BEDTIME #60 tab 04/24/20 perphenazine 4 mg PO DAILY PRN #30 tab 04/24/20 perphenazine 8 mg PO BEDTIME #30 tab 04/24/20 propranolol 20 mg PO BID #60 tab 04/24/20 trazodone 150 mg PO BEDTIME #30 tab 04/24/20 Allergies Allergy/AdvReac Type Severity Reaction Status Date / Time insect venom [MOSQUITO] Allergy Unknown UNKNOWN Verified 08/19/20 20:48 paliperidone [From INVEGA] Allergy Unknown DYSTONIC Verified 08/19/20 20:48 REACTION haloperidol [HALOPERIDOL] AdvReac Intermediate Dystonic Verified 08/19/20 20:48 reaction Review of Systems Review of Systems: Constitutional : No Weight loss, No Fever, No Chills, No Night Sweats, No Fatigue, No Malaise ENT/Mouth : No Hearing loss, No Ear Pain, No Nasal Congestion, No Sinus Pain, No Hoarseness, No sore throat, No Rhinorrhea, No Swallowing Difficulty Eyes: No Eye Pain, No Swelling, No Redness, No Foreign Body, No Discharge, No Vision Changes Cardiovascular : No Chest Pain, No SOB, No Dyspnea on Exertion, No Orthopnea, No Edema, No Palpitations Respiratory : No Cough, No Sputum, No Wheezing, No Smoke Exposure, No Dyspnea Gastrointestinal : No Nausea, No Vomiting, No Diarrhea, No Constipation, No abdominal Pain, No Hematochezia, No Melena Genitourinary : no irregular bleeding, No Dysuria, No Urinary Frequency, No Hematuria, No Urinary Incontinence, No Urgency, No Flank Pain, No Urinary Flow Changes, No Hesitancy Musculoskeletal : No joint pain, No Myalgias, No Joint Swelling Skin : No Skin Lesions, No rash Neuro : No Weakness, No Numbness, No Paresthesias, No Loss of Consciousness, No Dizziness, No Headache Psych : feeling depressed, suicidal, no HI Heme/Lymph: No Bruising, No Bleeding,No Lymphadenopathy Endocrine : No Polyuria, No Polydipsia, No Temperature Intolerance [facility] Past Medical History Medical History Anxiety Bipolar 1 disorder Depression PTSD (post-traumatic stress disorder) Social History Social History Household Members: Family Housing: Apartment Do you presently have visiting nurse or other home services: No Alcohol intake: former Cigarettes Per Day: 2 Years Smoked: 3 Second Hand Smoke Exposure: Yes Advance Directives: No Patient : No service: No Sexual orientation: Bisexual Physical Exam Vital Signs: Vital Signs: Last Vital Signs Temp 97.9 F 11/03/20 00:54 Pulse 86 11/03/20 00:54 Resp 16 11/03/20 00:54 BP 113/68 11/03/20 00:54 Pulse Ox 99 11/03/20 00:54 Body Mass Index 25.8 Appearance: Alert. Oriented X3. No acute distress. Eyes: Pupils equal, round and reactive to light. ENT: Pharynx normal. Neck: Normal inspection. Neck supple. No lymph nodes noted. No crepitus CVS: Normal heart rate and rhythm. Pulses normal. Normal S1 and S2 Respiratory: No respiratory distress. Breath sounds normal. No Wheezing. No rales Abdomen: Soft and nontender. No rigidity. No distention. good BS x4 Skin: Skin warm and dry. Normal skin color. Normal skin turgor. Extremities: No lower extremity edema. No lower extremity edema. No Lacerations. No Rash Neuro: Oriented X 3. No motor deficit. No sensory deficit. Moving all extermities. No slurred speech. psych: Redundant speech, Course Course Course Narrative: bhn consult pending , physician observe patient started at 01:20, patient's vitals stable. Discharge Plan Discharge Prescriptions: No Action clonazepam 0.5 mg Tablet 0.5 mg PO TID Qty: 90 RF: 0 propranolol 20 mg Tablet 20 mg PO BID Qty: 60 RF: 0 lithium carbonate 450 mg Tablet Extended Release 450 mg PO BID Qty: 60 RF: 0 trazodone 150 mg Tablet 150 mg PO BEDTIME Qty: 30 RF: 0 divalproex 500 mg Tablet Extended Release 24 Hr 1,500 mg PO BEDTIME Qty: 90 RF: 0 perphenazine 4 mg Tablet 4 mg PO DAILY PRN (Reason: Psychosis) Qty: 30 RF: 0 perphenazine 8 mg Tablet 8 mg PO BEDTIME Qty: 30 RF: 0 melatonin 5 mg Tablet 10 mg PO BEDTIME Qty: 60 RF: 0
[2020-11-03 01:20] LABS: Glucose Urine UA NEG (NEG); Leukocyte Esterase Urine NEG (NEG); Nitrite Urine NEG (NEG); PH 6.5 (5.0-8.0); Specific Gravity - Urine 1.025 (1.005-1.025); Urine Blood NEG (NEG); Urine Ketones NEG (NEG); Urine Protein NEG (NEG-TRACE)
[2020-11-03 01:21] LABS: Appearance Urine CLEAR; Color Urine YELLOW
[2020-11-03 01:25] LABS: Bacteria Urine 2+ /LPF; Squamous Epithelial Cell Urine 2+ /LPF
[2020-11-03 01:33] LABS: COVID-19 Test Negative (Negative); IDNOW Serial# 9DD0AD1C
[2020-11-03 01:42] LABS: Amphetamine Screen Urine Not Detected (Not Detect); Barbiturates, Urine Not Detected (Not Detect); Benzodiazepines Screen Urine Not Detected (Not Detect); Cannabinoid Screen Urine POSITIVE (Not Detect); Cocaine Screen Urine Not Detected (Not Detect); Opiate Screen Urine Not Detected (Not Detect); Phencyclidine Screen Urine Not Detected (Not Detect)
[2020-11-03] MEDS: Acetaminophen 325 MG TABLET 650 MG PO (02:09)
--- NOTE | 2020-11-03 02:27 | PC.NURSE ---
keyla faxed and called spoke with eva
--- NOTE | 2020-11-03 06:46 | PC.NURSE ---
Patient resting comfortably in bed awaiting eval by n.
[2020-11-03 10:34] LABS: MANUAL DIFF FLAG NO
[2020-11-03 10:36] LABS: Basophils Percent Auto 0.5 % (0-2); Eosinophils Absolute Auto 0.1 X10*3/uL (0.0-0.4); Eosinophils Percent Auto 1.2 % (0-4); Hematocrit 42.6 % (37-47); Hemoglobin 13.6 g/dl (12.0-16.0); Imm Gran Abs Auto 0.02 X10*3/uL (0.00-0.03); Imm Gran Pct Auto 0.2 % (0.0-0.4); Lymphocytes Absolute Auto 3.2 X10*3/uL (1.2-4.9); Mean Corpuscular HGB Conc 31.9 g/dl (31.0-35.0); Mean Corpuscular Hemoglobin 30.9 pg (27.0-33.0); Mean Corpuscular Volume 96.8 fL (80-98); Mean Platelet Volume 10.1 fL (9.4-12.3); Monocytes Absolute Auto 0.5 X10*3/uL (0.1-1.2); Monocytes Percent Auto 6.2 % (2-11); Neutrophils Absolute Auto 4.4 X10*3/uL (2.0-8.3); Neutrophils Percent Auto 52.9 % (45-73); Platelet Count 296 X10*3/uL (160-400); White Blood Count 8.2 X10*3/uL (4.8-10.8)
[2020-11-03 11:06] LABS: Alanine Aminotransferase 6 U/L (0-31); Albumin Level 4.2 g/dL (3.5-5.0); Alkaline Phosphatase 80 U/L (39-117); Anion Gap 14 (12-20); Aspartate Amino Transferase 18 U/L (5-31); Bilirubin Direct < 0.2 mg/dL (0.0-0.5); Bilirubin Total < 0.2 mg/dL (0.0-1.0); Blood Urea Nitrogen 3 mg/dL (9-16); Calcium 9.6 mg/dL (8.4-10.2); Carbon Dioxide 24 mmol/L (22-29); Chloride 109 mmol/L (96-108); Creatinine Clr Calc Pharmacy 130.7; Estimated Glomerular Filt Rate > 60; Glucose Random 128 mg/dL (60-115); Potassium 4.2 mmol/L (3.3-5.1); Sodium 143 mmol/L (135-145); Total Protein 7.3 g/dL (6.5-8.0)
[2020-11-03 11:08] VITALS: BP 112/63; PULSE 80; TEMP 36.3; O2SAT 99
[2020-11-03 11:15] LABS: Valproate 10.2 mcg/mL (50.0-100.0)
[2020-11-03 11:41] VITALS: BP 112/63; PULSE 80
[2020-11-03] MEDS: Propranolol HCL 20 MG TABLET PO ×2 (11:41→20:20)
[2020-11-03] MEDS: clonazePAM 0.5 MG TABLET PO (11:41)
[2020-11-03] MEDS: Lithium Carbonate ER 450 MG TABLET.ER PO ×2 (11:45→20:17)
--- NOTE | 2020-11-03 13:17 | PC.NURSE ---
(Late entry) had received report from overnight shift staff, patient remained asleep at the beginning of shift, appeared in no distress. patient seen by N, reviewed medication list with this travel writer. patient recounted conflictual relationship with med provider. N states patient should be an inpatient bed search at present.
[2020-11-03] MEDS: Melatonin 3 MG TABLET 6 MG PO (20:17)
[2020-11-03] MEDS: Divalproex Sodium ER 500 MG TAB.ER.24H 1500 MG PO (20:18)
[2020-11-03 20:20] VITALS: BP 102/62; PULSE 80
[2020-11-03] MEDS: Perphenazine 8 MG TABLET PO (21:27)
[2020-11-04] MEDS: Perphenazine 4 MG TABLET PO (01:41)
[2020-11-04] MEDS: clonazePAM 0.5 MG TABLET PO ×4 (01:41→22:28)
[2020-11-04] MEDS: traZODone HCL 50 MG TABLET 150 MG PO ×2 (01:41→22:28)
--- NOTE | 2020-11-04 01:46 | PC.NURSE ---
Patient woke up d/t unit commotion, requested her HS Trazodone and Klonopin, provider notified/approved to administer to missed HS dose, administered Trazodone 150 mg, Klonopin 0.5 mg, and Perphenazine 4 mg as ordered, patient compliant/pending effect, will continue to monitor.
[2020-11-04 02:00] VITALS: BP 138/102; PULSE 80; RESP 16; TEMP 36.7; O2SAT 100
--- NOTE | 2020-11-04 06:22 | PC.NURSE ---
Patient slept through the night, compliant with her medication, no distress observed/reported, patient alert and oriented, disposition section 12 inpatient bed search, will continue to monitor.
--- NOTE | 2020-11-04 07:22 | PC.NURSE ---
patient appears at rest presently respirations are even and unlabored, aitent appears in no distress.
[2020-11-04 10:43] VITALS: BP 99/38; PULSE 52; RESP 16; TEMP 36.3; O2SAT 100
[2020-11-04 10:46] VITALS: BP 99/38; PULSE 52
[2020-11-04] MEDS: Lithium Carbonate ER 450 MG TABLET.ER PO ×2 (10:46→22:28)
--- NOTE | 2020-11-04 11:39 | MHC.CARE ---
patient accepted to for admission today.
--- NOTE | 2020-11-04 14:19 | PC.NURSE ---
pt refused nicotine replacement
--- NOTE | 2020-11-04 14:21 | PC.ADMIT ---
pt is a 20 year old , bangladeshi speaking female admitted to M3 from [facility] ED. pt presented to the ED stating that she doesn't feel like herself . pt was experiencing suicidal ideation with a plan to harm herself. pt felt like her family would be better off without her and states that she feels out of place . pt stopped taking her medications last week. pt does have current psychiatric providers. she feels safe on the unit and can seek staff if she does not. pt reports depression and anxiety. pt denies hi. pt denies auditory or visual hallucinations. pts behavior is calm and cooperative during admission. she reports trouble falling asleep. pt is covid negative. labs and vital signs are within normal limits. pt has stable housing and a strong support system. pt seems preoccupied while conversing.
[2020-11-04 18:00] VITALS: BP 99/62; PULSE 90; RESP 16; TEMP 36.7; O2SAT 100
[2020-11-04] MEDS: Melatonin 3 MG TABLET 6 MG PO (22:28)
[2020-11-04] MEDS: Perphenazine 8 MG TABLET PO (22:28)
[2020-11-04] MEDS: Divalproex Sodium ER 500 MG TAB.ER.24H 1500 MG PO (22:28)
[2020-11-04 22:29] VITALS: BP 95/58; PULSE 51
[2020-11-05 06:00] VITALS: BP 97/53; PULSE 67; RESP 16; TEMP 36.7; O2SAT 99
[2020-11-05] MEDS: Lithium Carbonate ER 450 MG TABLET.ER PO ×2 (09:04→22:10)
[2020-11-05] MEDS: clonazePAM 0.5 MG TABLET PO ×3 (09:04→22:10)
[2020-11-05 10:09] VITALS: BP 97/53; PULSE 67
--- NOTE | 2020-11-05 16:49 | HO.PSYADMNOT ---
HPI Chief Complaint: SI Sources of Information: patient interviewed, chart reviewed and crisis/core team assessment reviewed HPI Subjective Notes: Conditional Voluntary Healthcare Proxy: No Guardianship: No Medical Problems Affecting Mental Status: No Narrative: pt enters the interview room and notes the TV and asks, TV in every room? good, because i've got a lot of wrestling to watch! 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 she goes on to discuss her obsession with girls. pretty girls. but she has learned they don't all like it when you walk up to them and tell them how beautiful they are. it appears she could go on on any number of tangents, but calls her back to the task at hand. she reports she had been off meds from through wednesday due to her meds being in a backpack which did not follow her from house to house where she was visiting with various relatives. she reports she started feeling crazy. she reported it was difficult for her to feel so bad and not to have anybody notice ( hey, guys, look at me! ); her family were all having fun watching fireworks, she reports, and didn't see her crying during the show. she self-presented to the ED looking for restabilization on her meds on wednesday. she reports preoccupation with thoughts that others don't like her. she also states she does not have a good therapeutic alliance with her current psychotherapist. Past Psychiatric History: Multiple admissions to She receives services through [facility] Medical Evaluation Reviewed: Yes [facility] Medical History Anxiety Bipolar 1 disorder Depression PTSD (post-traumatic stress disorder) Family History: pt denied any FH of mental illness or CORRINA. however, pt has reported seeing her grandmother self-harm. Social History: Lives with her mother and 3 yonger sibs in [place], [place]. working to obtain HS diploma. Substance History: cannabis - uses 5 times daily. most recent use day [employer]. tobacco - smokes 7 cigarettes daily. crack cocaine - last used in 2018 Trauma History: watched her grandmother self-harm and was reportedly locked in closets throughout childhood. Diagnostics Vital Signs (24Hr): Vital Signs - 24 hr 11/04/20 18:00 11/04/20 22:29 11/05/20 06:00 Temperature 98.1 F 98.1 F Pulse Rate 90 51 67 Respiratory Rate 16 16 Blood Pressure 99/62 95/58 L 97/53 L Pulse Oximetry 100 99 11/05/20 10:09 Temperature Pulse Rate 67 Respiratory Rate Blood Pressure 97/53 L Pulse Oximetry Body Mass Index 25.8 Labs Results: 11/03/20 10:30 11/03/20 10:30 Meds/Allergies Meds Home Medications Acetaminophen (Acetaminophen 325 Mg Tablet) 650 mg PO Q6H PRN PRN Reason: Headache/Pain Mild Scale (1-3) Al Hydroxide/Mg Hydroxide (Magnesium Hydrox/Alum Hydrox 30 Ml Oral.Susp) 30 ml PO Q6H PRN PRN Reason: Heartburn/Nausea Clonazepam (Clonazepam 0.5 Mg Tablet) 0.5 mg PO TID [facility] Last Admin: 11/05/20 14:34 Dose: 0.5 mg Documented by: Divalproex Sodium (Divalproex Sodium Er 500 Mg Tab.Er.24h) 1,500 mg PO BEDTIME [facility] Last Admin: 11/04/20 22:28 Dose: 1,500 mg Documented by: Hydroxyzine HCl (Hydroxyzine Hcl 25 Mg Tablet) 25 mg PO BEDTIME PRN PRN Reason: Anxiety [place] Carbonate ([place] Carbonate Er 450 Mg Tablet.Er) 450 mg PO BID [facility] Last Admin: 11/05/20 09:04 Dose: 450 mg Documented by: Magnesium Hydroxide (Milk Of Magnesia 30 Ml Oral.Susp) 30 ml PO DAILY PRN PRN Reason: Constipation Melatonin (Melatonin 3 Mg Tablet) 6 mg PO BEDTIME [facility] Last Admin: 11/04/20 22:28 Dose: 6 mg Documented by: Nicotine Polacrilex (Nicotine Polacrilex 2 Mg Gum) 2 mg BUCCAL Q2H PRN PRN Reason: Nicotine Cravings Perphenazine (Perphenazine 4 Mg Tablet) 4 mg PO DAILY PRN PRN Reason: Psychosis Last Admin: 11/04/20 01:41 Dose: 4 mg Documented by: Perphenazine (Perphenazine 8 Mg Tablet) 8 mg PO BEDTIME [facility] Last Admin: 11/04/20 22:28 Dose: 8 mg Documented by: Propranolol HCl (Propranolol Hcl 20 Mg Tablet) 20 mg PO BID [facility]; Protocol Last Admin: 11/05/20 10:09 Dose: Not Given Documented by: Trazodone HCl (Trazodone Hcl 50 Mg Tablet) 150 mg PO BEDTIME [facility] Last Admin: 11/04/20 22:28 Dose: 150 mg Documented by: Trazodone HCl (Trazodone Hcl 50 Mg Tablet) 50 mg PO BEDTIME PRN PRN Reason: Insomnia Allergies Allergies Allergy/AdvReac Type Severity Reaction Status Date / Time insect venom [MOSQUITO] Allergy Unknown UNKNOWN Verified 08/19/20 20:48 paliperidone [From INVEGA] Allergy Unknown DYSTONIC Verified 08/19/20 20:48 REACTION haloperidol [HALOPERIDOL] AdvReac Intermediate Dystonic Verified 08/19/20 20:48 reaction Mental Status Exam Mental Status Exam Narrative: pt was short-haired, no PMA/PMR, cooperative with interview. speech was increased in amount; nml in rate, loudness, tone; decr in latency. thoughts spontaneously tangential, but circumstantial in response to questions - digressive, slightly disorganized, and over-inclusive of detail. affect was flexible, full-range, normo-intense, non-labile. mood OK. emotional... sad & angry. reports AH fo tapping noises and VH of ghosts (fully-formed figures). denies HI. denies SI ([facility] thursday 11/02). Assessment & Plan Assessment & Plan (1) Bipolar disorder: Status: Acute Code(s): F31.9 - Bipolar disorder, unspecified Assessment and Plan: improved since evaluation in the ED. no longer suicidal. getting restabilized on medications. continue home meds, plan for discharge before the end of the week. Reason for continued inpatient stay Substantial Risk for: harm to self
[2020-11-05 21:59] VITALS: BP 104/51; PULSE 100; TEMP 36.8; O2SAT 99
[2020-11-05 22:01] VITALS: BP 104/51; PULSE 100
[2020-11-05] MEDS: Melatonin 3 MG TABLET 6 MG PO (22:08)
[2020-11-05] MEDS: traZODone HCL 50 MG TABLET 150 MG PO (22:09)
[2020-11-05] MEDS: Divalproex Sodium ER 500 MG TAB.ER.24H 1500 MG PO (22:09)
[2020-11-05] MEDS: Perphenazine 8 MG TABLET PO (22:10)
[2020-11-05 22:14] VITALS: BP 104/51; PULSE 100; TEMP 36.8; O2SAT 99
[2020-11-06 06:00] VITALS: BP 97/56; PULSE 63; RESP 16; O2SAT 98
[2020-11-06] MEDS: Perphenazine 4 MG TABLET PO (08:13)
[2020-11-06] MEDS: Lithium Carbonate ER 450 MG TABLET.ER PO ×2 (08:13→23:11)
[2020-11-06] MEDS: clonazePAM 0.5 MG TABLET PO ×3 (08:14→23:10)
[2020-11-06 09:40] VITALS: BP 97/56; PULSE 63
--- NOTE | 2020-11-06 13:23 | P.PNPSI_ITS ---
Subjective Subjective Date of Service: 11/06/20 Reason For Visit: SI Interim History: pt reports she continues to feel well. states she watched some wrestling last night, which she felt good about. states she is feeling good and ready for discharge tomorrow. requests MD call her mother Sury at [phone]. would like to discharge around 1000 am tomorrow. per staff, not attending groups. dep 08/17. no SI but sad. also endorsing anxiety. missing her family. propranolol held last NOC due to hypotension. Mental Status Exam Mental Status Exam Narrative: short-haired, no PMA/PMR, cooperative with interview. speech was increased in amount; nml in rate, loudness, tone; decr in latency. thoughts spontaneously tangential but more organized and linear in response to direct questions. affect was flexible, full-range, normo-intense, non-labile. mood good. denies SI. Diagnostics Vital Signs (24Hr): Vital Signs - 24 hr 11/05/20 21:59 11/05/20 22:01 11/05/20 22:14 Temperature 98.2 F 98.2 F Pulse Rate 100 100 100 Respiratory Rate Blood Pressure 104/51 L 104/51 L 104/51 L Pulse Oximetry 99 99 11/06/20 06:00 11/06/20 09:40 Temperature Pulse Rate 63 63 Respiratory Rate 16 Blood Pressure 97/56 L 97/56 L Pulse Oximetry 98 Body Mass Index 25.8 Labs Results: 11/03/20 10:30 11/03/20 10:30 Medications Medications Current Medications Generic Name Dose Route Start Last Admin Trade Name Alyssa PRN Reason Stop Dose Admin Acetaminophen 650 mg 11/04/20 13:54 Acetaminophen 325 Mg Tablet PO Q6H PRN Headache/Pain Mild Scale (1-3) Al Hydroxide/Mg Hydroxide 30 ml 11/04/20 13:54 Magnesium Hydrox/Alum Hydrox 30 Ml Oral.Susp PO Q6H PRN Heartburn/Nausea Clonazepam 0.5 mg 11/03/20 11:00 11/06/20 08:14 Clonazepam 0.5 Mg Tablet PO 0.5 mg TID [facility] Administration Divalproex Sodium 1,500 mg 11/03/20 21:00 11/05/20 22:09 Divalproex Sodium Er 500 Mg Tab.Er.24h PO 1,500 mg BEDTIME [facility] Administration Hydroxyzine HCl 25 mg 11/04/20 13:54 Hydroxyzine Hcl 25 Mg Tablet PO BEDTIME PRN Anxiety [place] Carbonate 450 mg 11/03/20 11:00 11/06/20 08:13 [place] Carbonate Er 450 Mg Tablet.Er PO 450 mg BID [facility] Administration Magnesium Hydroxide 30 ml 11/04/20 13:54 Milk Of Magnesia 30 Ml Oral.Susp PO DAILY PRN Constipation Melatonin 6 mg 11/03/20 21:00 11/05/20 22:08 Melatonin 3 Mg Tablet PO 6 mg BEDTIME [facility] Administration Nicotine Polacrilex 2 mg 11/04/20 13:54 Nicotine Polacrilex 2 Mg Gum BUCCAL Q2H PRN Nicotine Cravings Perphenazine 8 mg 11/03/20 21:00 11/05/20 22:10 Perphenazine 8 Mg Tablet PO 8 mg BEDTIME [facility] Administration Perphenazine 4 mg 11/06/20 09:00 11/06/20 08:13 Perphenazine 4 Mg Tablet PO 4 mg DAILY [facility] Administration Propranolol HCl 20 mg 11/03/20 11:00 11/06/20 09:40 Propranolol Hcl 20 Mg Tablet PO Not Given BID [facility] Protocol Trazodone HCl 150 mg 11/03/20 21:00 11/05/20 22:09 Trazodone Hcl 50 Mg Tablet PO 150 mg BEDTIME [facility] Administration Trazodone HCl 50 mg 11/04/20 13:54 Trazodone Hcl 50 Mg Tablet PO BEDTIME PRN Insomnia Allergies Allergies Allergy/AdvReac Type Severity Reaction Status Date / Time insect venom [MOSQUITO] Allergy Unknown UNKNOWN Verified 08/19/20 20:48 paliperidone [From INVEGA] Allergy Unknown DYSTONIC Verified 08/19/20 20:48 REACTION haloperidol [HALOPERIDOL] AdvReac Intermediate Dystonic Verified 08/19/20 20:48 reaction Assessment & Plan Assessment & Plan (1) Bipolar disorder: Status: Acute Code(s): F31.9 - Bipolar disorder, unspecified Assessment and Plan: improved since evaluation in the ED. no longer suicidal. getting restabilized on medications. continue home meds, plan for discharge tomorrow. recheck labs prior to discharge. Greater than 50% of the session was spent on counseling and/or coordination of care Reason for contiued inpatient stay Substantial Risk for: harm to self
[2020-11-06 20:45] VITALS: BP 90/54; PULSE 91; TEMP 36.7; O2SAT 100
[2020-11-06 23:06] VITALS: BP 111/58; PULSE 89; TEMP 36.6; O2SAT 99
[2020-11-06 23:10] VITALS: BP 111/58; PULSE 89
[2020-11-06] MEDS: Propranolol HCL 20 MG TABLET PO (23:10)
[2020-11-06] MEDS: Melatonin 3 MG TABLET 6 MG PO (23:11)
[2020-11-06] MEDS: Perphenazine 8 MG TABLET PO (23:12)
[2020-11-06] MEDS: Divalproex Sodium ER 500 MG TAB.ER.24H 1500 MG PO (23:12)
[2020-11-06] MEDS: traZODone HCL 50 MG TABLET 150 MG PO (23:12)
[2020-11-07 06:00] VITALS: BP 94/52; PULSE 75; RESP 16; TEMP 36.7; O2SAT 100
[2020-11-07 07:00] VITALS: BMI 26.3
[2020-11-07 07:47] LABS: MANUAL DIFF FLAG NO
[2020-11-07 07:52] LABS: Basophils Percent Auto 0.6 % (0-2); Eosinophils Absolute Auto 0.1 X10*3/uL (0.0-0.4); Eosinophils Percent Auto 1.4 % (0-4); Hematocrit 41.6 % (37-47); Hemoglobin 13.5 g/dl (12.0-16.0); Imm Gran Abs Auto 0.02 X10*3/uL (0.00-0.03); Imm Gran Pct Auto 0.3 % (0.0-0.4); Lymphocytes Absolute Auto 2.8 X10*3/uL (1.2-4.9); Lymphocytes Percent Auto 39.7 % (20-40); Mean Corpuscular HGB Conc 32.5 g/dl (31.0-35.0); Mean Corpuscular Hemoglobin 30.9 pg (27.0-33.0); Mean Corpuscular Volume 95.2 fL (80-98); Mean Platelet Volume 10.1 fL (9.4-12.3); Monocytes Absolute Auto 0.7 X10*3/uL (0.1-1.2); Monocytes Percent Auto 9.4 % (2-11); Neutrophils Absolute Auto 3.4 X10*3/uL (2.0-8.3); Neutrophils Percent Auto 48.6 % (45-73); Platelet Count 276 X10*3/uL (160-400); Red Blood Count 4.37 X10*6/uL (4.20-5.50); Red Cell Distribution Width 11.9 % (11.0-16.0); White Blood Count 6.9 X10*3/uL (4.8-10.8)
[2020-11-07 08:09] LABS: Lithium 1.26 mmol/L (0.60-1.20)
[2020-11-07 08:20] LABS: Alanine Aminotransferase 10 U/L (0-31); Albumin Level 4.1 g/dL (3.5-5.0); Alkaline Phosphatase 71 U/L (39-117); Anion Gap 10 (12-20); Aspartate Amino Transferase 17 U/L (5-31); Bilirubin Direct 0.2 mg/dL (0.0-0.5); Bilirubin Total 0.4 mg/dL (0.0-1.0); Blood Urea Nitrogen 5 mg/dL (9-16); Calcium 9.8 mg/dL (8.4-10.2); Carbon Dioxide 27 mmol/L (22-29); Chloride 106 mmol/L (96-108); Creatinine Clr Calc Pharmacy 127.1; Estimated Glomerular Filt Rate > 60; Glucose Random 94 mg/dL (60-115); Potassium 4.5 mmol/L (3.3-5.1); Sodium 138 mmol/L (135-145)
[2020-11-07 08:39] LABS: Valproate 67.7 mcg/mL (50.0-100.0)
[2020-11-07 09:04] VITALS: BP 94/52; PULSE 75
[2020-11-07] MEDS: Propranolol HCL 20 MG TABLET PO (09:04)
[2020-11-07] MEDS: Perphenazine 4 MG TABLET PO (09:04)
[2020-11-07] MEDS: clonazePAM 0.5 MG TABLET PO (09:07)
[2020-11-07] MEDS: Lithium Carbonate ER 300 MG TABLET.ER PO (10:04)
--- NOTE | 2020-11-07 11:00 | PM.PSYDC ---
DS: Providers Provider Date of Service: 11/07/20 Date of admission: 11/04/20 13:02 Date of discharge: 11/07/20 Primary care physician: None Physician DS: Diagnosis Discharge Diagnosis (1) Bipolar disorder: Status: Acute DS: Medications Discharge Medications Home Medications: Home Medications Medication Instructions Recorded Confirmed melatonin 5 mg PO BEDTIME 11/03/20 11/03/20 Previous Rx's Medication Instructions Recorded clonazepam 0.5 mg PO TID #90 tab 04/24/20 divalproex 1,500 mg PO BEDTIME #90 tab 04/24/20 perphenazine 4 mg PO DAILY PRN #30 tab 04/24/20 perphenazine 8 mg PO BEDTIME #30 tab 04/24/20 propranolol 20 mg PO BID #60 tab 04/24/20 trazodone 150 mg PO BEDTIME #30 tab 04/24/20 lithium carbonate 300 mg PO DAILY 30 Days #30 tab 11/07/20 lithium carbonate 450 mg PO BEDTIME 30 Days #30 tab 11/07/20 melatonin 6 mg PO BEDTIME 30 Days #60 tab 11/07/20 Discharge Plan Discharge Anticipated Discharge Date/Time: 11/07/20 10:00 Patient Disposition: Home, Self-Care Discharge Diagnosis: Bipolar I Disorder, MRE mixed Referrals: Clarisse blake (psychiatry) [Other] - 11/29/20 10:40 am (telehealth appointment) Sahara Barrera (Therapy) [Other] - 1 Week (Voicemail left. SW or CC will follow up with appointment date and time. ) [facility] [Provider Group] - 1 Week Physician,Moreno [Primary Care Provider] - 1 Week Discharge Medications: New lithium carbonate 450 mg Tablet Extended Release 450 mg PO BEDTIME 30 Days Qty: 30 RF: 0 lithium carbonate 300 mg Tablet Extended Release 300 mg PO DAILY 30 Days Qty: 30 RF: 0 melatonin 3 mg Tablet 6 mg PO BEDTIME 30 Days Qty: 60 RF: 0 Continued clonazepam 0.5 mg Tablet 0.5 mg PO TID Qty: 90 RF: 0 propranolol 20 mg Tablet 20 mg PO BID Qty: 60 RF: 0 trazodone 150 mg Tablet 150 mg PO BEDTIME Qty: 30 RF: 0 divalproex 500 mg Tablet Extended Release 24 Hr 1,500 mg PO BEDTIME Qty: 90 RF: 0 perphenazine 4 mg Tablet 4 mg PO DAILY PRN (Reason: Psychosis) Qty: 30 RF: 0 perphenazine 8 mg Tablet 8 mg PO BEDTIME Qty: 30 RF: 0 melatonin 5 mg tablet 5 mg PO BEDTIME RF: 0 Discontinued lithium carbonate 450 mg Tablet Extended Release 450 mg PO BID Qty: 60 RF: 0 Discharge Orders: Discharge Order (Routine); Ordered 11/07/20 Ordered By: Maximo Nielsen Diet: advance to usual diet Activity on Discharge: As tolerated Stand Alone Forms: Patient Portal Discharge page Care Plan Goals: remain independent in the community Health Concerns: none Plan of Treatment: continue to take medication as prescribed to maintain even and non-depressed/non-manic mood. continue to meet with your providers as scheduled. Assessment: no thoughts of self-harm, stable mood, safe for discharge Discharge Date/Time: 11/07/20 11:40 Mental Status Exam Mental Status Exam Narrative: short-haired, no PMA/PMR, cooperative with interview. speech was increased in amount; nml in rate, loudness, tone; decr in latency. thoughts spontaneously tangential but more organized and linear in response to direct questions. affect was flexible, full-range, normo-intense, non-labile. mood good. denies SI/HI/AVH. Data Data Completed and Pending Completed studies during hospitalization [Text1]: 11/03/20 11/03/20 11/03/20 01:11 01:11 01:11 WBC RBC Hgb Hct MCV MCH MCHC RDW Plt Count MPV Immature Gran % (Auto) Neut % (Auto) Lymph % (Auto) [place] % (Auto) Eos % (Auto) Baso % (Auto) Lymph # (Auto) [place] # (Auto) Eos # (Auto) Baso # (Auto) Abs Immat Gran (auto) Absolute Neuts (auto) Absolute Nucleated RBC Nucleated RBC % (auto) Sodium Potassium Chloride Carbon Dioxide Anion Gap BUN Creatinine Estim Creat Clear Calc Estimated GFR Random Glucose Calcium Total Bilirubin Direct Bilirubin AST ALT Alkaline Phosphatase Total Protein Albumin Urine Color YELLOW Urine Appearance CLEAR Urine pH 6.5 Ur Specific [place] 1.025 Urine Protein NEG Urine Glucose (UA) NEG Urine Ketones NEG Urine Blood NEG Urine Nitrite NEG Ur Leukocyte Esterase NEG Urine RBC 1-4 Urine WBC 1-4 Ur Squamous Epith Cells 2+ Urine Bacteria 2+ Urine Opiates Screen Not Detected Ur Barbiturates Screen Not Detected Valproic Acid Ur Phencyclidine Scrn Not Detected Ur Amphetamines Screen Not Detected U Benzodiazepines Scrn Not Detected Searchlight Urine Cocaine Screen Not Detected U Marijuana (THC) Screen POSITIVE H COVID-19 ([facility]ENNA) Negative COVID-19 Clin Com See Note 11/03/20 11/03/20 11/03/20 10:30 10:30 10:30 WBC 8.2 RBC 4.40 Hgb 13.6 Hct 42.6 MCV 96.8 MCH 30.9 MCHC 31.9 RDW 12.0 Plt Count 296 MPV 10.1 Immature Gran % (Auto) 0.2 Neut % (Auto) 52.9 Lymph % (Auto) 39.0 [place] % (Auto) 6.2 Eos % (Auto) 1.2 Baso % (Auto) 0.5 Lymph # (Auto) 3.2 [place] # (Auto) 0.5 Eos # (Auto) 0.1 Baso # (Auto) 0.0 Abs Immat Gran (auto) 0.02 Absolute Neuts (auto) 4.4 Absolute Nucleated RBC 0.000 Nucleated RBC % (auto) 0.0 Sodium 143 Potassium 4.2 Chloride 109 H Carbon Dioxide 24 Anion Gap 14 BUN 3 L Creatinine 0.70 Estim Creat Clear Calc 130.7 Estimated GFR > 60 Random Glucose 128 H Calcium 9.6 Total Bilirubin < 0.2 Direct Bilirubin < 0.2 AST 18 ALT 6 Alkaline Phosphatase 80 Total Protein 7.3 Albumin 4.2 Urine Color Urine Appearance Urine pH Ur Specific [place] Urine Protein Urine Glucose (UA) Urine Ketones Urine Blood Urine Nitrite Ur Leukocyte Esterase Urine RBC Urine WBC Ur Squamous Epith Cells Urine Bacteria Urine Opiates Screen Ur Barbiturates Screen Valproic Acid 10.2 L Ur Phencyclidine Scrn Ur Amphetamines Screen U Benzodiazepines Scrn Searchlight 0.30 L Urine Cocaine Screen U Marijuana (THC) Screen COVID-19 (SIENNA) COVID-19 Clin Com 11/07/20 11/07/20 11/07/20 07:25 07:25 07:25 WBC 6.9 RBC 4.37 Hgb 13.5 Hct 41.6 MCV 95.2 MCH 30.9 MCHC 32.5 RDW 11.9 Plt Count 276 MPV 10.1 Immature Gran % (Auto) 0.3 Neut % (Auto) 48.6 Lymph % (Auto) 39.7 [place] % (Auto) 9.4 Eos % (Auto) 1.4 Baso % (Auto) 0.6 Lymph # (Auto) 2.8 [place] # (Auto) 0.7 Eos # (Auto) 0.1 Baso # (Auto) 0.0 Abs Immat Gran (auto) 0.02 Absolute Neuts (auto) 3.4 Absolute Nucleated RBC 0.000 Nucleated RBC % (auto) 0.0 Sodium 138 Potassium 4.5 Chloride 106 Carbon Dioxide 27 Anion Gap 10 L BUN 5 L D Creatinine 0.72 Estim Creat Clear Calc 127.1 Estimated GFR > 60 Random Glucose 94 Calcium 9.8 Total Bilirubin 0.4 Direct Bilirubin 0.2 AST 17 ALT 10 Alkaline Phosphatase 71 Total Protein 7.0 Albumin 4.1 Urine Color Urine Appearance Urine pH Ur Specific [place] Urine Protein Urine Glucose (UA) Urine Ketones Urine Blood Urine Nitrite Ur Leukocyte Esterase Urine RBC Urine WBC Ur Squamous Epith Cells Urine Bacteria Urine Opiates Screen Ur Barbiturates Screen Valproic Acid 67.7 Ur Phencyclidine Scrn Ur Amphetamines Screen U Benzodiazepines Scrn [place] 1.26 H Urine Cocaine Screen U Marijuana (THC) Screen COVID-19 (SIENNA) COVID-19 Clin Com DS: Summary Hospital Course Hospital Course: per Morales [facility] 11/05 H&P: pt enters the interview room and notes the TV and asks, TV in every room? good, because i've got a lot of wrestling to watch! 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 she goes on to discuss her obsession with girls. pretty girls. but she has learned they don't all like it when you walk up to them and tell them how beautiful they are. it appears she could go on on any number of tangents, but calls her back to the task at hand. she reports she had been off meds from through wednesday due to her meds being in a backpack which did not follow her from house to house where she was visiting with various relatives. she reports she started feeling crazy. she reported it was difficult for her to feel so bad and not to have anybody notice ( hey, guys, look at me! ); her family were all having fun watching fireworks, she reports, and didn't see her crying during the show. she self-presented to the ED looking for restabilization on her meds on wednesday. she reports preoccupation with thoughts that others don't like her. she also states she does not have a good therapeutic alliance with her current psychotherapist. Past Psychiatric History: Multiple admissions to She receives services through [facility] per Morales [facility] 11/06 Progress Note: pt reports she continues to feel well. states she watched some wrestling last night, which she felt good about. states she is feeling good and ready for discharge tomorrow. requests MD call her mother Sury at [phone]. would like to discharge around 1000 am tomorrow. per staff, not attending groups. dep 08/17. no SI but sad. also endorsing anxiety. missing her family. propranolol held last NOC due to hypotension. 11/07: pt reports her mood is good, denies any safety concerns, and states her thoughts are clearer than when she came in. she has no complaints or requests. she is informed her lithium level was slightly supra-therapeutic at 1.26 and that dosing had been decreased to 300/450 from 450 BID. discharge to home today wioth mother per prior plan. Status at Discharge Functional status at discharge: independent ambulation Overall status at discharge: patient is back to baseline Time Spent with Patient Time attestation: Total time spent providing and/or coordinating discharge services: Time spent: Greater than 30 minutes
== END 2020-11-07 11:40 | disposition home or self-care (01) | DRG 753 ==
LOC: HO.ED 11-04 11:29 → HO.PADLT16 11-04 13:06
PROVIDERS: Nurse Practitioner Family; Admitting Provider Psychiatry & Neurology Psychiatry; Emergency Provider Emergency Medicine; Visit Provider Psychiatry & Neurology Psychiatry
DX: F31.9 Bipolar disorder, unspecified (principal); R45.851 Suicidal ideations; Z91.14 Patient's other noncompliance with medication regimen; F17.210 Nicotine dependence, cigarettes, uncomplicated; Z20.822 Contact with and (suspected) exposure to COVID-19; Z71.6 Tobacco abuse counseling; Z79.899 Other long term (current) drug therapy
CPT/HCPCS: 36415; 80048; 80076; 80164; 80178; 80307; 81001; 85025; 87635; 99285

== ENCOUNTER 2021-01-30 16:26 | Inpatient (IN) | payer OTHER, SELFPAY ==
[2021-01-30 17:16] VITALS: BP 101/61; PULSE 63; RESP 16; TEMP 37.3; O2SAT 99; BMI 27.4
--- NOTE | 2021-01-30 17:55 | ECG_ITS ---
Test Reason : MED CLEARANCE Blood Pressure : / mmHG Vent. Rate : 053 BPM Atrial Rate : 053 BPM P-R Int : 166 ms QRS Dur : 074 ms QT Int : 436 ms P-R-T Axes : 029 069 046 degrees QTc Int : 409 ms Sinus bradycardia with marked sinus arrhythmia Otherwise normal ECG When compared with ECG of 31-JUL-2019 08:39, Vent. rate has decreased BY 54 BPM QT has shortened Referred By: Floridalma Joseph Electronically Signed By:DAMIEN RAMIREZ
[2021-01-30 17:59] LABS: Appearance Urine HAZY; Color Urine YELLOW; Glucose Urine UA NEG (NEG); Leukocyte Esterase Urine TRACE (NEG); Nitrite Urine NEG (NEG); Specific Gravity - Urine >= 1.030 (1.005-1.025); UACC Culture Trigger YES; Urine Blood NEG (NEG); Urine Ketones NEG (NEG); Urine Protein 2+ MG/DL (NEG-TRACE)
[2021-01-30 18:05] LABS: Amphetamine Screen Urine Not Detected (Not Detect); Barbiturates, Urine Not Detected (Not Detect); Benzodiazepines Screen Urine POSITIVE (Not Detect); Cannabinoid Screen Urine POSITIVE (Not Detect); Cocaine Screen Urine Not Detected (Not Detect); Fentanyl, urine Not Detected (Not Detect); Opiate Screen Urine Not Detected (Not Detect); Phencyclidine Screen Urine Not Detected (Not Detect)
[2021-01-30 18:24] LABS: IDNOW Serial# 9DD0AD1C
[2021-01-30 18:25] LABS: COVID-19 Test Negative (Negative)
[2021-01-30 18:33] LABS: Ethanol < 10 mg/dL
[2021-01-30 18:36] LABS: Alanine Aminotransferase 13 U/L (0-31); Albumin Level 4.3 g/dL (3.5-5.0); Alkaline Phosphatase 73 U/L (39-117); Anion Gap 13 (12-20); Aspartate Amino Transferase 19 U/L (5-31); Bilirubin Total 0.3 mg/dL (0.0-1.0); Blood Urea Nitrogen 5 mg/dL (9-16); Calcium 9.9 mg/dL (8.4-10.2); Carbon Dioxide 20 mmol/L (22-29); Chloride 108 mmol/L (96-108); Creatinine Clr Calc Pharmacy 129.5; Estimated Glomerular Filt Rate > 60; Glucose Random 88 mg/dL (60-115); Magnesium 1.8 mg/dL (1.6-2.6); Potassium 4.4 mmol/L (3.3-5.1); Sodium 137 mmol/L (135-145); Total Protein 7.3 g/dL (6.5-8.0)
[2021-01-30 18:37] LABS: Lithium < 0.10 mmol/L (0.60-1.20)
[2021-01-30 18:41] LABS: Bacteria Urine 3+ /LPF; RBC Urine 0 /HPF (0); Squamous Epithelial Cell Urine 3+ /LPF; UACC CULT YES; WBC Urine 0-2 /HPF (0-4)
[2021-01-30 19:17] LABS: UPreg QC Valid YES; Urine Pregnancy NEGATIVE (NEGATIVE)
--- NOTE | 2021-01-30 19:41 | ED_ITS ---
HPI - Psych General Chief Complaint: Psychiatric Symptoms Stated Complaint: Crisis/SI Time Seen by Provider: 01/30/21 17:55 Source: patient Mode of arrival: ambulatory Limitations: no limitations History of Present Illness HPI Narrative: 21-year-old female with a past medical history of bipolar 1 disorder, PTSD, Depression and anxiety d/o presenting to the ED c c/o with complaints of worsening anxiety/depression with SI thoughts no plan in place. She reports that this started approximately 3 years ago after she moved from [place] to [place] after they lost their apartment in [place] and were technically homeless living in family member's house and this was a big life change/stressor for her because when she was residing in [place] she felt like she had everything she needed. She reports that she was in high school when she left to reside in [place] and she was unable to finish school here. She reports that she does not feel like she is where she wants to be unlike and this is really upsetting her. She denies any auditory visual [place]. She denies any alcohol usage. Miss to smoking marijuana daily although denies any other drug usage. She reports that she was prescribed lithium and multiple other medication although she has not taken them in months. Denies any other symptoms complaints or concerns at this time. Reports that she feels safe at home with her mother younger sister and 2 younger brothers 1 of them are transgender. She is currently trying to work on her GED although she has no motivation because she feels like she is not where she wants to be in life. She reports that she would like to be a wrestler or like [employer]. complaint: suicidal ideation, feels depressed, anxiety and substance abuse Onset (ago): month(s) Duration: constant and getting worse History of same: Yes Relieving factors: none Exacerbating factors: other (Current life situation) Context: recent drug abuse (Marijuana), not taking psychiatric medications and significant life stressor (Moved from [place] to [place] approximately 3 years ago and this changed her entire life for the patient) Associated psychiatric symptoms: depression, suicidal ideation (No plan in place) and racing thoughts Associated symptoms: denies other symptoms Treatments prior to arrival: none If self harm: admits thoughts of self harm Related Data Home Medications Medication Instructions Recorded Confirmed clonazepam 0.5 mg tablet 0.5 mg PO BID 01/30/21 01/30/21 Previous Rx's Medication Instructions Recorded divalproex 500 mg tablet,extended 1,500 mg PO BEDTIME #90 tab 04/24/20 release 24 hr perphenazine 4 mg tablet 4 mg PO DAILY PRN #30 tab 04/24/20 perphenazine 8 mg tablet 8 mg PO BEDTIME #30 tab 04/24/20 propranolol 20 mg tablet 20 mg PO BID #60 tab 04/24/20 Allergies Allergy/AdvReac Type Severity Reaction Status Date / Time insect venom [MOSQUITO] Allergy Unknown UNKNOWN Verified 08/19/20 20:48 paliperidone [From INVEGA] Allergy Unknown DYSTONIC Verified 08/19/20 20:48 REACTION haloperidol [HALOPERIDOL] AdvReac Intermediate Dystonic Verified 08/19/20 20:48 reaction Review of Systems Review of Systems: Constitutional : No Fever, No Chills ENT/Mouth : No Ear Pain, No Nasal Congestion, No sore throat Eyes: No Eye Pain, No Swelling, No Redness Cardiovascular : No Chest Pain, No SOB Respiratory : No Cough, No Sputum, No Dyspnea Gastrointestinal : No ingestions, No Nausea, No Vomiting, No Diarrhea, No Hematochezia, No Melena Genitourinary : No Dysuria, No Urinary Frequency, No Hematuria Musculoskeletal : No Myalgias Skin : No Skin Lesions, No rash Neuro : No Weakness, No Numbness, No Paresthesias, No Dizziness, No Headache Psych : + Anxiety, + Depression, + SI, + thoughts of self injury, No HI, No AVH, Heme/Lymph: No Lymphadenopathy Endocrine : No Polyuria, No Polydipsia Yes all other systems are reviewed and are negative [facility] Past Medical History Attestation statement: The following information was validated with the patient. Medical History Anxiety Bipolar 1 disorder Depression PTSD (post-traumatic stress disorder) Social History Social History Household Members: Family Housing: House Do you presently have visiting nurse or other home services: No Alcohol intake: former Patient Tobacco Use Status: Current everyday Tobacco user Tobacco use type: Cigarette Cigarettes Per Day: 2 Years Smoked: 3 Second Hand Smoke Exposure: No Substance Use Type: Marijuana Advance Directives: No Advance Directives Information Provided: No Guardian: No service: No Sexual orientation: did not discuss Physical Exam Vital Signs: Vital Signs: Last Vital Signs Temp 99.1 F 01/30/21 17:16 Pulse 63 01/30/21 17:16 Resp 16 01/30/21 17:16 BP 101/61 01/30/21 17:16 Pulse Ox 99 01/30/21 17:16 Body Mass Index 27.4 vital signs have been reviewed as normal and appeared to be correct. Blood pressure normal. Heart rate normal. Respiration rate normal. Temperature normal. Oxygen saturation normal. Appearance: Alert. Oriented X3. No acute distress. Head: Normal external exam. Normocephalic. Atraumatic. No Rios signs noted. No raccoon eyes noted Eyes: PERRLA. EOMI. Conjunctiva and sclera normal. Eyelids normal. ENT: EAC normal. TM's Normal. Pharynx normal. Uvula midline. Moist mucous membranes. No trismus noted. No drooling noted. No muffled voice noted. Neck: Normal inspection. Neck supple. FROM. No adenopathy. Thyroid Normal. No meningeal signs. No neck mass noted. CVS: Normal heart rate and rhythm. Heart sound normal. No murmurs noted. Pulses normal throughout. Respiratory: No respiratory distress. Painless inspiration. Breath sounds n ormal. No wheezes/rales/rhonchi noted. Chest nontender. No accessory muscle usage noted or decreased air movement noted. Abdomen: Soft and nontender. Bowel sounds normal in all 4 quadrants. No diste ntion noted. No organomegaly noted. No visible injury noted. Back: No CVA tenderness. Full range of motion noted. Skin: Skin warm and dry. Normal skin color. Normal skin turgor. No rashes/lesions/lacerations noted. Extremities: No lower extremity edema. Extremities exhibit normal range of m otion. Extremities nontender. Neuro: Oriented X 3. No motor deficit. No sensory deficit. Reflexes normal. Psych: Appearance grossly normal, well-kept, mental status normal, speech and movement normal, speech clear, patient appears very sad and anxious along with depressed. Is cooperative. Normal thought process. Normal thought content. Normal good insight. Judgment good. Course Course Course Narrative: 18:30pm - 21-year-old female with history of bipolar disorder, PTSD, anxiety and de pression presenting to the ED with complaints of increased anxiety/depression with SI thoughts no plan in place. Smokes marijuana daily. Denies any other drug usage. Noncompliant with medications. Denies any other symptoms. Plan: Labs, EKG, UA, UHCG, drugs of abuse screen, lithium level provide symptomatic relief with Ativan. And erythromycin for her possible stye versus blepharitis to her right upper eyelid. Then re-evaluate. Reevaluation(s) Reevaluation #1: - labs within normal limits. Lindstrom level low. Patient positive for marijuana negative for all other drugs. ETOH level is negative. UA revealed trace leukocytes and +2 protein otherwise no evidence of UTI. UHCG is negative for . Patient negative for COVID. - therefore patient is medically cleared and placed in physician observation at this time because the patient need more time to be evaluated by crisis. At this time patient's vitals remained stable within normal limits. She is neuro intact. No focal neuro deficits are noted. Lungs clear to auscultation. CV RRR. Abdomen soft nontender. Patient is awaiting crisis evaluation at this time. Time: 19:30 [facility] - Psych Medical Records Attestation: I reviewed the patient's medical records. Lab Data Attestation: I reviewed the patient's lab results. Result diagrams: 01/30/21 20:03 01/30/21 18:10 Labs: Lab Results 01/30/21 01/30/21 01/30/21 Range/Units 17:38 17:39 17:39 WBC (4.8-10.8) X10*3/uL RBC (4.20-5.50) X10*6/uL Hgb (12.0-16.0) g/dl Hct (37-47) % MCV (80-98) fL MCH (27.0-33.0) pg MCHC (31.0-35.0) g/dl RDW (11.0-16.0) % Plt Count (160-400) X10*3/uL MPV (9.4-12.3) fL Immature Gran % (Auto) (0.0-0.4) % Neut % (Auto) (45-73) % Lymph % (Auto) (20-40) % Carter % (Auto) (2-11) % Eos % (Auto) (0-4) % Baso % (Auto) (0-2) % Lymph # (Auto) (1.2-4.9) X10*3/uL Carter # (Auto) (0.1-1.2) X10*3/uL Eos # (Auto) (0.0-0.4) X10*3/uL Baso # (Auto) (0.0-0.2) X10*3/uL Abs Immat Gran (auto) (0.00-0.03) X10*3/uL Absolute Neuts (auto) (2.0-8.3) X10*3/uL Absolute Nucleated RBC (0.0-0.012) X10*3/uL Nucleated RBC % (auto) (0.0-0.2) /100WBC Sodium (135-145) mmol/L Potassium (3.3-5.1) mmol/L Chloride (96-108) mmol/L Carbon Dioxide (22-29) mmol/L Anion Gap (12-20) BUN (9-16) mg/dL Creatinine (0.5-1.4) mg/dL Estim Creat Clear Calc Estimated GFR Random Glucose (60-115) mg/dL Calcium (8.4-10.2) mg/dL Magnesium (1.6-2.6) mg/dL Total Bilirubin (0.0-1.0) mg/dL AST (5-31) U/L ALT (0-31) U/L Alkaline Phosphatase (39-117) U/L Total Protein (6.5-8.0) g/dL Albumin (3.5-5.0) g/dL Urine Color YELLOW Urine Appearance HAZY Urine pH 6.0 (5.0-8.0) Ur Specific [place] >= 1.030 H (1.005-1.025) Urine Protein 2+ H (NEG-TRACE) MG/DL Urine Glucose (UA) NEG (NEG) MG/DL Urine Ketones NEG (NEG) MG/DL Urine Blood NEG (NEG) Urine Nitrite NEG (NEG) Ur Leukocyte Esterase TRACE H (NEG) Urine RBC 0 (0) /HPF Urine WBC 0-2 (0-4) /HPF Ur Squamous Epith Cells 3+ /LPF Urine Bacteria 3+ /LPF Urine Test (NEGATIVE) Urine Opiates Screen Not Detected (Not Detect) Urine Fentanyl Screen Not Detected (Not Detect) Ur Barbiturates Screen Not Detected (Not Detect) Ur Phencyclidine Scrn Not Detected (Not Detect) Ur Amphetamines Screen Not Detected (Not Detect) U Benzodiazepines Scrn POSITIVE H (Not Detect) Lind[place] (0.60-1.20) mmol/L Urine Cocaine Screen Not Detected (Not Detect) U Marijuana (THC) Screen POSITIVE H (Not Detect) Ethyl Alcohol mg/dL COVID-19 (SIENNA) Negative (Negative) COVID-19 Clin Com See Note 01/30/21 01/30/21 01/30/21 Range/Units 17:39 18:10 18:10 WBC (4.8-10.8) X10*3/uL RBC (4.20-5.50) X10*6/uL Hgb (12.0-16.0) g/dl Hct (37-47) % MCV (80-98) fL MCH (27.0-33.0) pg MCHC (31.0-35.0) g/dl RDW (11.0-16.0) % Plt Count (160-400) X10*3/uL MPV (9.4-12.3) fL Immature Gran % (Auto) (0.0-0.4) % Neut % (Auto) (45-73) % Lymph % (Auto) (20-40) % Carter % (Auto) (2-11) % Eos % (Auto) (0-4) % Baso % (Auto) (0-2) % Lymph # (Auto) (1.2-4.9) X10*3/uL Carter # (Auto) (0.1-1.2) X10*3/uL Eos # (Auto) (0.0-0.4) X10*3/uL Baso # (Auto) (0.0-0.2) X10*3/uL Abs Immat Gran (auto) (0.00-0.03) X10*3/uL Absolute Neuts (auto) (2.0-8.3) X10*3/uL Absolute Nucleated RBC (0.0-0.012) X10*3/uL Nucleated RBC % (auto) (0.0-0.2) /100WBC Sodium 137 (135-145) mmol/L Potassium 4.4 (3.3-5.1) mmol/L Chloride 108 (96-108) mmol/L Carbon Dioxide 20 L (22-29) mmol/L Anion Gap 13 (12-20) BUN 5 L (9-16) mg/dL Creatinine 0.72 (0.5-1.4) mg/dL Estim Creat Clear Calc 129.5 Estimated GFR > 60 Random Glucose 88 (60-115) mg/dL Calcium 9.9 (8.4-10.2) mg/dL Magnesium 1.8 (1.6-2.6) mg/dL Total Bilirubin 0.3 (0.0-1.0) mg/dL AST 19 (5-31) U/L ALT 13 (0-31) U/L Alkaline Phosphatase 73 (39-117) U/L Total Protein 7.3 (6.5-8.0) g/dL Albumin 4.3 (3.5-5.0) g/dL Urine Color Urine Appearance Urine pH (5.0-8.0) Ur Specific [place] (1.005-1.025) Urine Protein (NEG-TRACE) MG/DL Urine Glucose (UA) (NEG) MG/DL Urine Ketones (NEG) MG/DL Urine Blood (NEG) Urine Nitrite (NEG) Ur Leukocyte Esterase (NEG) Urine RBC (0) /HPF Urine WBC (0-4) /HPF Ur Squamous Epith Cells /LPF Urine Bacteria /LPF Urine Test NEGATIVE (NEGATIVE) Urine Opiates Screen (Not Detect) Urine Fentanyl Screen (Not Detect) Ur Barbiturates Screen (Not Detect) Ur Phencyclidine Scrn (Not Detect) Ur Amphetamines Screen (Not Detect) U Benzodiazepines Scrn (Not Detect) [place] (0.60-1.20) mmol/L Urine Cocaine Screen (Not Detect) U Marijuana (THC) Screen (Not Detect) Ethyl Alcohol < 10 mg/dL COVID-19 (SIENNA) (Negative) COVID-19 Clin Com 01/30/21 01/30/21 Range/Units 18:10 20:03 WBC 6.7 (4.8-10.8) X10*3/uL RBC 4.51 (4.20-5.50) X10*6/uL Hgb 13.8 (12.0-16.0) g/dl Hct 40.4 (37-47) % MCV 89.6 (80-98) fL MCH 30.6 (27.0-33.0) pg MCHC 34.2 (31.0-35.0) g/dl RDW 11.6 (11.0-16.0) % Plt Count 227 (160-400) X10*3/uL MPV 10.3 (9.4-12.3) fL Immature Gran % (Auto) 0.1 (0.0-0.4) % Neut % (Auto) 46.8 (45-73) % Lymph % (Auto) 44.9 H (20-40) % Carter % (Auto) 7.5 (2-11) % Eos % (Auto) 0.4 (0-4) % Baso % (Auto) 0.3 (0-2) % Lymph # (Auto) 3.0 (1.2-4.9) X10*3/uL Carter # (Auto) 0.5 (0.1-1.2) X10*3/uL Eos # (Auto) 0.0 (0.0-0.4) X10*3/uL Baso # (Auto) 0.0 (0.0-0.2) X10*3/uL Abs Immat Gran (auto) 0.01 (0.00-0.03) X10*3/uL Absolute Neuts (auto) 3.1 (2.0-8.3) X10*3/uL Absolute Nucleated RBC 0.000 (0.0-0.012) X10*3/uL Nucleated RBC % (auto) 0.0 (0.0-0.2) /100WBC Sodium (135-145) mmol/L Potassium (3.3-5.1) mmol/L Chloride (96-108) mmol/L Carbon Dioxide (22-29) mmol/L Anion Gap (12-20) BUN (9-16) mg/dL Creatinine (0.5-1.4) mg/dL Estim Creat Clear Calc Estimated GFR Random Glucose (60-115) mg/dL Calcium (8.4-10.2) mg/dL Magnesium (1.6-2.6) mg/dL Total Bilirubin (0.0-1.0) mg/dL AST (5-31) U/L ALT (0-31) U/L Alkaline Phosphatase (39-117) U/L Total Protein (6.5-8.0) g/dL Albumin (3.5-5.0) g/dL Urine Color Urine Appearance Urine pH (5.0-8.0) Ur Specific [place] (1.005-1.025) Urine Protein (NEG-TRACE) MG/DL Urine Glucose (UA) (NEG) MG/DL Urine Ketones (NEG) MG/DL Urine Blood (NEG) Urine Nitrite (NEG) Ur Leukocyte Esterase (NEG) Urine RBC (0) /HPF Urine WBC (0-4) /HPF Ur Squamous Epith Cells /LPF Urine Bacteria /LPF Urine Test (NEGATIVE) Urine Opiates Screen (Not Detect) Urine Fentanyl Screen (Not Detect) Ur Barbiturates Screen (Not Detect) Ur Phencyclidine Scrn (Not Detect) Ur Amphetamines Screen (Not Detect) U Benzodiazepines Scrn (Not Detect) [place] < 0.10 L (0.60-1.20) mmol/L Urine Cocaine Screen (Not Detect) U Marijuana (THC) Screen (Not Detect) Ethyl Alcohol mg/dL COVID-19 (SIENNA) (Negative) COVID-19 Clin Com Discharge Plan Discharge Clinical Impression: Bipolar disorder, Depression, Acute anxiety, Blepharitis Prescriptions: No Action propranolol 20 mg Tablet 20 mg PO BID Qty: 60 RF: 0 divalproex 500 mg Tablet Extended Release 24 Hr 1,500 mg PO BEDTIME Qty: 90 RF: 0 perphenazine 4 mg Tablet 4 mg PO DAILY PRN (Reason: Psychosis) Qty: 30 RF: 0 perphenazine 8 mg Tablet 8 mg PO BEDTIME Qty: 30 RF: 0 clonazepam 0.5 mg tablet 0.5 mg PO BID RF: 0
[2021-01-30] MEDS: Erythromycin Base 0.5% Oph Oin 1 GM TUBE 1 CM EYE-RIGHT (19:57)
[2021-01-30 20:08] LABS: Basophils Percent Auto 0.3 % (0-2); Eosinophils Percent Auto 0.4 % (0-4); Hematocrit 40.4 % (37-47); Hemoglobin 13.8 g/dl (12.0-16.0); Imm Gran Abs Auto 0.01 X10*3/uL (0.00-0.03); Imm Gran Pct Auto 0.1 % (0.0-0.4); Lymphocytes Percent Auto 44.9 % (20-40); Mean Corpuscular HGB Conc 34.2 g/dl (31.0-35.0); Mean Corpuscular Hemoglobin 30.6 pg (27.0-33.0); Mean Corpuscular Volume 89.6 fL (80-98); Mean Platelet Volume 10.3 fL (9.4-12.3); Monocytes Absolute Auto 0.5 X10*3/uL (0.1-1.2); Monocytes Percent Auto 7.5 % (2-11); Neutrophils Absolute Auto 3.1 X10*3/uL (2.0-8.3); Neutrophils Percent Auto 46.8 % (45-73); Platelet Count 227 X10*3/uL (160-400); Red Blood Count 4.51 X10*6/uL (4.20-5.50); Red Cell Distribution Width 11.6 % (11.0-16.0); White Blood Count 6.7 X10*3/uL (4.8-10.8)
[2021-01-30] MEDS: LORazepam 1 MG TABLET PO (20:09)
--- NOTE | 2021-01-30 20:38 | PHA.MEDREC ---
Pharmacy Consult ? Medication Reconciliation Pharmacy has completed the medication reconciliation. Patient admits poor adherence and only takes her medications when she has them/needs them, or wants to . We went over her medication list using refill history from March, and omitted medications such as trazodone, lithium, and melatonin. She reports she has not taken lithium in a while (despite a blood level showing it). Recently, she states that she is taking some medications on a more regular basis. Those have been added to her home medication list. Lastly, she did confirm the depakote is 1500mg once a day, but she has been using only the 250mg tablets left over from a previous fill (filled >1 year ago). Thanks Cecilia Bolivar Pharm. D
[2021-01-30 21:16] LABS: MANUAL DIFF FLAG NO
[2021-01-31 01:15] VITALS: BP 110/62; PULSE 72; RESP 16; TEMP 36.7; O2SAT 100
[2021-01-31] MEDS: traZODone HCL 50 MG TABLET PO (02:44)
[2021-01-31] MEDS: hydrOXYzine HCL 25 MG TABLET PO (02:44)
--- NOTE | 2021-01-31 04:32 | PC.ADMIT ---
Patient admitted from ED. Presented to ED this afternoon from therapists office who recommended she come. Patient reports she has not been taking her meds and has a risk hx when unmedicated. She also reported feeling like she was on edge and wanted to get help before she went into manic episode. Patient was calm and cooperative upon arrival. Denies SI. NO AH or VH. Alert and oriented x4. Appeared neatly groomed. Speech clear and appropriate. Thought process and insight appropriate. Patient admits daily marijuana use. Moves all extremities. Denies any physical problems. Oriented to unit. Admission assessment complete. Patient participated in admission process. Signed CV. Observed sleeping.
--- NOTE | 2021-01-31 15:17 | P.CONHOSP_ITS ---
History of Present Illness Data of Consult Service Date: 01/31/21 Requesting physician: Mario Aranda Primary Care Provider: None Physician HPI Reason for consult: Medical management 21-year-old female with a past medical history of bipolar 1 disorder, PTSD, Depression and anxiety d/o presenting to the ED c c/o with complaints of worsening anxiety/depression with SI thoughts no plan in place. States she has been off her meds for some time and is anxious about restarting them. There are no acute medical issues at this time Review of Systems Review of Systems: Denies chest pain Denies shortness of breath Denies nausea vomiting diarrhea PMFSH Medical History Anxiety Bipolar 1 disorder Depression PTSD (post-traumatic stress disorder) Pertinent family history: none pertinent Social History Household Members: Family Household Members Other:: Mom, 2 brothers, 1 sister. Housing: Apartment Do you presently have visiting nurse or other home services: No Alcohol intake: former Patient Tobacco Use Status: Current everyday Tobacco user Tobacco use type: Cigarette Cigarettes Per Day: 3 Years Smoked: 5 years Smoked in Last 30 Days: Yes e-Cigarette/Vaping Use: Never Used Patient Interested in Nicotine Replacement: No Patient Given Instructions on How to Stop Smoking: No Second Hand Smoke Exposure: Yes Use of substances other than those prescribed or required for medical reasons: Yes Substance Use Type: Marijuana Substance Use Frequency: Daily Last Used Substance: Just Prior to Admission Last Used Substance Other:: marijuana Currently Displaying Signs/Symptoms of Drug Intoxication Withdrawal: No Any prior treatment program specific to substance use: No Have you been hit, kicked, punched, or otherwise hurt by someone within the past year? If so, by whom?: No Do you feel safe in your current relationship?: No Current Relationship Is there a partner from a previous relationship who is making you feel unsafe now?: No Are you made to feel afraid or neglected: No Advance Directives: No Advance Directives Information Provided: No Guardian: No Do you have thoughts of harming others: None Do you have a plan to hurt others: No Plan Recently lost weight without trying: No Eating poorly because of decreased appetite: No Nutrition Risks: No Nutritional Risk Patient : No : No Poor oral hygiene: No service: No Sexual orientation: Lesbian/Garcia/Homosexual Meds Allergies Allergy/AdvReac Type Severity Reaction Status Date / Time insect venom [MOSQUITO] Allergy Unknown UNKNOWN Verified 08/19/20 20:48 paliperidone [From INVEGA] Allergy Unknown DYSTONIC Verified 08/19/20 20:48 REACTION haloperidol [HALOPERIDOL] AdvReac Intermediate Dystonic Verified 08/19/20 20:48 reaction Active Medications: Current Medications Acetaminophen (Acetaminophen 325 Mg Tablet) 650 mg PO Q6H PRN PRN Reason: Headache/Pain Mild Scale (1-3) Al Hydroxide/Mg Hydroxide (Magnesium Hydrox/Alum Hydrox 30 Ml Oral.Susp) 30 ml PO Q6H PRN PRN Reason: Heartburn/Nausea Divalproex Sodium (Divalproex Sodium Er 500 Mg Tab.Er.24h) 1,500 mg PO BEDTIME [place]AV[place] Hydroxyzine HCl (Hydroxyzine Hcl 25 Mg Tablet) 25 mg PO BEDTIME PRN PRN Reason: Anxiety Last Admin: 01/31/21 02:44 Dose: 25 mg Documented by: Magnesium Hydroxide (Milk Of Magnesia 30 Ml Oral.Susp) 30 ml PO DAILY PRN PRN Reason: Constipation Trazodone HCl (Trazodone Hcl 50 Mg Tablet) 50 mg PO BEDTIME PRN PRN Reason: Insomnia Last Admin: 01/31/21 02:44 Dose: 50 mg Documented by: Home Medications Medication Instructions Recorded Confirmed Last Taken Type clonazepam 0.5 mg tablet 0.5 mg PO BID 01/30/21 01/30/21 01/29/21 History Physical Exam Vital Signs and Narrative: Vital Signs: Last Vital Signs Temp 98.1 F 01/31/21 01:15 Pulse 72 01/31/21 01:15 Resp 16 01/31/21 01:15 BP 110/62 01/31/21 01:15 Pulse Ox 100 01/31/21 01:15 Body Mass Index 27.4 Const: General: no acute distress HENMT: Other: Membranes moist. Oropharynx clear. TMs barlow and lucent bilaterally Resp: Auscultation: clear to auscultation bilaterally, no rales, no rhonchi and no wheezes Cardio: Rate: regular rate Rhythm: regular rhythm Heart sounds: S1 normal heart sound present, S2 normal heart sound present and no murmurs GI: Other: Soft nontender nondistended with normoactive bowel sounds. There is no over peritoneal signs Neuro: Other: Cranial nerves 2-12 grossly intact as tested. Motor 5/5 all extremities. Sensation intact. Cognition normal Extrem: General: Yes normal to inspection Results Labs CBC and Chem 7: 01/30/21 20:03 01/30/21 18:10 Labs: Laboratory Results - last 24 hr 01/30/21 01/30/21 01/30/21 17:38 17:39 17:39 MCV MCH MCHC RDW Plt Count MPV Immature Gran % (Auto) Neut % (Auto) Lymph % (Auto) [place] % (Auto) Eos % (Auto) Baso % (Auto) Lymph # (Auto) [place] # (Auto) Eos # (Auto) Baso # (Auto) Abs Immat Gran (auto) Absolute Neuts (auto) Absolute Nucleated RBC Nucleated RBC % (auto) Anion Gap Estim Creat Clear Calc Estimated GFR Random Glucose Calcium Magnesium Total Bilirubin AST ALT Alkaline Phosphatase Total Protein Albumin Urine Color YELLOW Urine Appearance HAZY Urine pH 6.0 Ur Specific [place] >= 1.030 H Urine Protein 2+ H Urine Glucose (UA) NEG Urine Ketones NEG Urine Blood NEG Urine Nitrite NEG Ur Leukocyte Esterase TRACE H Urine RBC 0 Urine WBC 0-2 Ur Squamous Epith Cells 3+ Urine Bacteria 3+ Urine Test Urine Opiates Screen Not Detected Urine Fentanyl Screen Not Detected Ur Barbiturates Screen Not Detected Ur Phencyclidine Scrn Not Detected Ur Amphetamines Screen Not Detected U Benzodiazepines Scrn POSITIVE H [place] Urine Cocaine Screen Not Detected U Marijuana (THC) Screen POSITIVE H Ethyl Alcohol COVID-19 (SIENNA) Negative COVID-19 Clin Com See Note 01/30/21 01/30/21 01/30/21 17:39 18:10 18:10 MCV MCH MCHC RDW Plt Count MPV Immature Gran % (Auto) Neut % (Auto) Lymph % (Auto) [place] % (Auto) Eos % (Auto) Baso % (Auto) Lymph # (Auto) [place] # (Auto) Eos # (Auto) Baso # (Auto) Abs Immat Gran (auto) Absolute Neuts (auto) Absolute Nucleated RBC Nucleated RBC % (auto) Anion Gap 13 Estim Creat Clear Calc 129.5 Estimated GFR > 60 Random Glucose 88 Calcium 9.9 Magnesium 1.8 Total Bilirubin 0.3 AST 19 ALT 13 Alkaline Phosphatase 73 Total Protein 7.3 Albumin 4.3 Urine Color Urine Appearance Urine pH Ur Specific [place] Urine Protein Urine Glucose (UA) Urine Ketones Urine Blood Urine Nitrite Ur Leukocyte Esterase Urine RBC Urine WBC Ur Squamous Epith Cells Urine Bacteria Urine Test NEGATIVE Urine Opiates Screen Urine Fentanyl Screen Ur Barbiturates Screen Ur Phencyclidine Scrn Ur Amphetamines Screen U Benzodiazepines Scrn [place] Urine Cocaine Screen U Marijuana (THC) Screen Ethyl Alcohol < 10 COVID-19 (SIENNA) COVID-19 Clin Com 01/30/21 01/30/21 18:10 20:03 MCV 89.6 MCH 30.6 MCHC 34.2 RDW 11.6 Plt Count 227 MPV 10.3 Immature Gran % (Auto) 0.1 Neut % (Auto) 46.8 Lymph % (Auto) 44.9 H [place] % (Auto) 7.5 Eos % (Auto) 0.4 Baso % (Auto) 0.3 Lymph # (Auto) 3.0 [place] # (Auto) 0.5 Eos # (Auto) 0.0 Baso # (Auto) 0.0 Abs Immat Gran (auto) 0.01 Absolute Neuts (auto) 3.1 Absolute Nucleated RBC 0.000 Nucleated RBC % (auto) 0.0 Anion Gap Estim Creat Clear Calc Estimated GFR Random Glucose Calcium Magnesium Total Bilirubin AST ALT Alkaline Phosphatase Total Protein Albumin Urine Color Urine Appearance Urine pH Ur Specific [place] Urine Protein Urine Glucose (UA) Urine Ketones Urine Blood Urine Nitrite Ur Leukocyte Esterase Urine RBC Urine WBC Ur Squamous Epith Cells Urine Bacteria Urine Test Urine Opiates Screen Urine Fentanyl Screen Ur Barbiturates Screen Ur Phencyclidine Scrn Ur Amphetamines Screen U Benzodiazepines Scrn [place] < 0.10 L Urine Cocaine Screen U Marijuana (THC) Screen Ethyl Alcohol COVID-19 (SIENNA) COVID-19 Clin Com Assessment and Plan (1) Depression: Status: Acute (2) Acute anxiety: Status: Acute (3) Bipolar disorder: Status: Acute Further treatment as per psych. No acute medical issues at this time. Please feel free to contact the should any issues arise
--- NOTE | 2021-01-31 15:42 | HO.PSYADMNOT ---
HPI Chief Complaint: Depression Sources of Information: patient interviewed, chart reviewed and crisis/core team assessment reviewed HPI Subjective Notes: Bunch Warning, Conditional Voluntary and 3 Day Narrative: Patient is a 21-year-old female with history of bipolar disorder, PTSD who presents for depression with vague SI. Patient reports that when she left from previous admission this past November 07, she was taking her Depakote, perphenazine, lithium and overall felt good. However this only lasted for about 3 days and she reports that she soon started feeling crummy again. She reports she continued to take her medications daily and has done so up until about 2 days before this admission. She says that they seem to be good at prevent team manic episodes however they have done nothing for her depression. Patient reports that her depression continued to increase over the subsequent weeks until she had vague SI with no plan or intentions. Patient is hoping for medication change before depression worsens. She reports continued depression and anxiety but currently denies any SI. Patient smokes cannabis daily but otherwise denies drug or alcohol abuse. Business Relations Manager reviewed history and patient shared that she does have manic episodes that can last about 1-2 weeks and include rapid speech, racing thoughts (and talking obsessively about professional wrestling with no one else interested), being very easily distracted, having increased goal-directed activity (taking out all her shoe laces and organizing them) and with increased libido and activity, which that she reports would never happen if she were not having a manic episode; however she did report that she typically is able to sleep several hours each day. history of trauma but did not want to discuss. She reports she was diagnosed with bipolar disorder at 14 years old. Patient reports that in the past Depakote alone was sufficient for managing manic episodes. She said she only tried lithium because everyone kept asking her to; however lithium has caused her to gain weight and she does not want to take it. Patient reports propranolol was only for blood pressure when she had a dystonic reaction at a previous admission about a year ago and she does not feel the need for it; her blood pressure is frequently too low in the morning for her to take it anyway. Patient reports that clonazepam was says prescribed t.i.d. however she only takes it twice a day and agrees to trying only take it once a day or not at all given the fact that it can make getting over PTSD worse. She says she was started on perphenazine for anxiety. After reviewing medications, going over risks and side effects and options patient says she would like to be on only Depakote for control of todd; she would also like to try Wellbutrin for depression and anxiety given its preferable side effect profile versus Latuda which was also discussed. Past Psychiatric History: Multiple admissions to She receives services through [facility] Medical Evaluation Reviewed: Yes [facility] Medical History (Updated 01/31/21 @ 17:33 by Mario Aranda MD) Anxiety Bipolar 1 disorder Depression PTSD (post-traumatic stress disorder) PTSD (post-traumatic stress disorder) Family History: pt denied any FH of mental illness or CORRINA. however, pt has reported seeing her grandmother self-harm. Social History: Lives with her mother and 3 yonger sibs in [place], [place]. working to obtain HS diploma. Substance History: Cannabis only Trauma History: watched her grandmother self-harm and was reportedly locked in closets throughout childhood. Diagnostics Vital Signs (24Hr): Vital Signs - 24 hr 01/30/21 17:16 01/31/21 01:15 Temperature 99.1 F 98.1 F Pulse Rate 63 72 Respiratory Rate 16 16 Blood Pressure 101/61 110/62 Pulse Oximetry 99 100 Body Mass Index 27.4 Labs Results: 01/30/21 20:03 01/30/21 18:10 Labs: Laboratory Results - last 48 hr 01/30/21 01/30/21 01/30/21 17:38 17:39 17:39 WBC RBC Hgb Hct MCV MCH MCHC RDW Plt Count MPV Immature Gran % (Auto) Neut % (Auto) Lymph % (Auto) [place] % (Auto) Eos % (Auto) Baso % (Auto) Lymph # (Auto) [place] # (Auto) Eos # (Auto) Baso # (Auto) Abs Immat Gran (auto) Absolute Neuts (auto) Absolute Nucleated RBC Nucleated RBC % (auto) Sodium Potassium Chloride Carbon Dioxide Anion Gap BUN Creatinine Estim Creat Clear Calc Estimated GFR Random Glucose Calcium Magnesium Total Bilirubin AST ALT Alkaline Phosphatase Total Protein Albumin Urine Color YELLOW Urine Appearance HAZY Urine pH 6.0 Ur Specific [place] >= 1.030 H Urine Protein 2+ H Urine Glucose (UA) NEG Urine Ketones NEG Urine Blood NEG Urine Nitrite NEG Ur Leukocyte Esterase TRACE H Urine RBC 0 Urine WBC 0-2 Ur Squamous Epith Cells 3+ Urine Bacteria 3+ Urine Test Urine Opiates Screen Not Detected Urine Fentanyl Screen Not Detected Ur Barbiturates Screen Not Detected Valproic Acid Ur Phencyclidine Scrn Not Detected Ur Amphetamines Screen Not Detected U Benzodiazepines Scrn POSITIVE H [place] Urine Cocaine Screen Not Detected U Marijuana (THC) Screen POSITIVE H Ethyl Alcohol COVID-19 (SIENNA) Negative COVID-19 Clin Com See Note 01/30/21 01/30/21 01/30/21 17:39 18:10 18:10 WBC RBC Hgb Hct MCV MCH MCHC RDW Plt Count MPV Immature Gran % (Auto) Neut % (Auto) Lymph % (Auto) [place] % (Auto) Eos % (Auto) Baso % (Auto) Lymph # (Auto) [place] # (Auto) Eos # (Auto) Baso # (Auto) Abs Immat Gran (auto) Absolute Neuts (auto) Absolute Nucleated RBC Nucleated RBC % (auto) Sodium 137 Potassium 4.4 Chloride 108 Carbon Dioxide 20 L Anion Gap 13 BUN 5 L Creatinine 0.72 Estim Creat Clear Calc 129.5 Estimated GFR > 60 Random Glucose 88 Calcium 9.9 Magnesium 1.8 Total Bilirubin 0.3 AST 19 ALT 13 Alkaline Phosphatase 73 Total Protein 7.3 Albumin 4.3 Urine Color Urine Appearance Urine pH Ur Specific [place] Urine Protein Urine Glucose (UA) Urine Ketones Urine Blood Urine Nitrite Ur Leukocyte Esterase Urine RBC Urine WBC Ur Squamous Epith Cells Urine Bacteria Urine Test NEGATIVE Urine Opiates Screen Urine Fentanyl Screen Ur Barbiturates Screen Valproic Acid Ur Phencyclidine Scrn Ur Amphetamines Screen U Benzodiazepines Scrn [place] Urine Cocaine Screen U Marijuana (THC) Screen Ethyl Alcohol < 10 COVID-19 (SIENNA) COVID-19 Clin Com 01/30/21 01/30/21 01/31/21 18:10 20:03 Unknown WBC 6.7 RBC 4.51 Hgb 13.8 Hct 40.4 MCV 89.6 MCH 30.6 MCHC 34.2 RDW 11.6 Plt Count 227 MPV 10.3 Immature Gran % (Auto) 0.1 Neut % (Auto) 46.8 Lymph % (Auto) 44.9 H [place] % (Auto) 7.5 Eos % (Auto) 0.4 Baso % (Auto) 0.3 Lymph # (Auto) 3.0 [place] # (Auto) 0.5 Eos # (Auto) 0.0 Baso # (Auto) 0.0 Abs Immat Gran (auto) 0.01 Absolute Neuts (auto) 3.1 Absolute Nucleated RBC 0.000 Nucleated RBC % (auto) 0.0 Sodium Potassium Chloride Carbon Dioxide Anion Gap BUN Creatinine Estim Creat Clear Calc Estimated GFR Random Glucose Calcium Magnesium Total Bilirubin AST ALT Alkaline Phosphatase Total Protein Albumin Urine Color Urine Appearance Urine pH Ur Specific [place] Urine Protein Urine Glucose (UA) Urine Ketones Urine Blood Urine Nitrite Ur Leukocyte Esterase Urine RBC Urine WBC Ur Squamous Epith Cells Urine Bacteria Urine Test Urine Opiates Screen Urine Fentanyl Screen Ur Barbiturates Screen Valproic Acid Cancelled Ur Phencyclidine Scrn Ur Amphetamines Screen U Benzodiazepines Scrn [place] < 0.10 L Urine Cocaine Screen U Marijuana (THC) Screen Ethyl Alcohol COVID-19 (SIENNA) COVID-19 Clin Com Meds/Allergies Meds Home Medications Acetaminophen (Acetaminophen 325 Mg Tablet) 650 mg PO Q6H PRN PRN Reason: Headache/Pain Mild Scale (1-3) Al Hydroxide/Mg Hydroxide (Magnesium Hydrox/Alum Hydrox 30 Ml Oral.Susp) 30 ml PO Q6H PRN PRN Reason: Heartburn/Nausea Bupropion HCl (Bupropion Hcl Xl 150 Mg Tab.Er.24h) 150 mg PO DAILY GAVIOTA Clonazepam (Clonazepam 0.5 Mg Tablet) 0.5 mg PO DAILY PRN PRN Reason: moderate anxiety Divalproex Sodium (Divalproex Sodium Er 250 Mg Tab.Er.24h) 1,750 mg PO BEDTIME GAVIOTA Hydroxyzine HCl (Hydroxyzine Hcl 25 Mg Tablet) 25 mg PO Q6H PRN PRN Reason: Anxiety Magnesium Hydroxide (Milk Of Magnesia 30 Ml Oral.Susp) 30 ml PO DAILY PRN PRN Reason: Constipation Prazosin HCl (Prazosin Hcl 1 Mg Capsule) 1 mg PO BEDTIME GAVIOTA; Protocol Trazodone HCl (Trazodone Hcl 100 Mg Tablet) 100 mg PO BEDTIME PRN PRN Reason: Insomnia Allergies Allergies Allergy/AdvReac Type Severity Reaction Status Date / Time insect venom [MOSQUITO] Allergy Unknown UNKNOWN Verified 08/19/20 20:48 paliperidone [From INVEGA] Allergy Unknown DYSTONIC Verified 08/19/20 20:48 REACTION haloperidol [HALOPERIDOL] AdvReac Intermediate Dystonic Verified 08/19/20 20:48 reaction Mental Status Exam Mental Status Exam Narrative: Pt is alert and oriented; behavior is cooperative, friendly and calm; patient is not in distress; dressed in hospital gown with adequate hygiene; mood is described as depressed and affect congruent; eye contact appropriate; Speech is normal rate, volume and prosody and not pressured; no psychomotor agitation/retardation present; thought process is organized and goal directed. Thought content is on treatment; otherwise TC relevant to pertinent topics and without any delusional content, paranoid ideations or grandiosity; denies any SI/HI. There is no evidence of perceptual disturbance. ?Patients insight and judgment appear intact. Assessment & Plan Assessment & Plan (1) Bipolar disorder: Status: Acute Code(s): F31.9 - Bipolar disorder, unspecified (2) PTSD (post-traumatic stress disorder): Status: Acute Code(s): F43.10 - Post-traumatic stress disorder, unspecified Assessment and Plan: IMPRESSION: Patient is a 21-year-old female with history of bipolar disorder, PTSD who presents for depression with vague SI. Patient currently depressed. No manic symptoms present. SI has resolved. Patient is hoping for medication management to prevent worsening depression Given patient's age and the fact that she is currently on 3 mood stabilizers, and reportedly that she has been able to prevent manic episodes on Depakote alone, will attempt to discontinue some of her medication regimen an effort to see if mono therapy can be sufficient. Will treat anxiety and depression with Wellbutrin as her depression has not been treated despite being on 3 mood stabilizers. Plan: Q 15 minutes checks for safety Patient on 3 day notice Depakote 1750 mg q.h.s. for bipolar disorder; patient says this alone has been effective in the past for preventing todd Will start Wellbutrin XL 150 mg q.a.m. for depression and anxiety; this medication is known to have lower potential for triggering manic episode; patient does not want to be on Latuda right now given its side effect profile Will start prazosin 1 mg q.h.s. for insomnia due to upsetting thoughts at bedtime Will continue clonazepam 0.5 mg however will make it daily p.r.n. (down from t.i.d.) and patient agrees to try not to use it unless moderate to severe anxiety To avoid unnecessary polypharmacy: Will discontinue lithium: Patient never wanted to be on this and a causes way cane Will discontinue perphenazine: Patient says this was started for anxiety and has not seemed to made much difference Will discontinue propranolol. Patient says this was used for blood pressure; was never used for help with anxiety and does not want If patient's todd is not prevented by Depakote alone can always reach add medications; however patient wants to see if she can be treated with fewer meds Reason for continued inpatient stay Substantial Risk for: rapid decompensation
[2021-01-31 20:36] VITALS: BP 129/65; PULSE 114; TEMP 36.1
[2021-01-31 22:34] VITALS: BP 103/66; PULSE 122
[2021-01-31] MEDS: Prazosin HCL 1 MG CAPSULE PO (22:34)
[2021-01-31] MEDS: Divalproex Sodium ER 250 MG TAB.ER.24H 750 MG PO (23:20)
[2021-02-01] MEDS: buPROPion HCl XL 150 MG TAB.ER.24H PO (09:26)
[2021-02-01 09:38] LABS: UPreg QC Valid YES; Urine Pregnancy NEGATIVE (NEGATIVE)
--- NOTE | 2021-02-01 10:11 | HO.PSYCHPN ---
Subjective Subjective Date of Service: 02/01/21 Reason For Visit: Depression Interim History: Patient reports that her mood is a little better and denies any SI. She did have trouble sleeping due to worries, overthinking and agrees to increased prazosin. Patient also is willing to give urine test which was negative. Last night patient clarified and said she had not been taking Depakote for several weeks so her initial dose was lowered to 750 mg; she agrees to titrated over the next day or so back to 1750mg. Patient denies AVH and says that she has utilizing milieu therapy which has been helping. No side effects from starting Wellbutrin Mental Status Exam Mental Status Exam Narrative: Pt is alert and oriented; behavior is cooperative, friendly and calm; patient is not in distress; dressed in hospital gown with adequate hygiene; mood is described as better and affect congruent; eye contact appropriate; Speech is normal rate, volume and prosody and not pressured; no psychomotor agitation/retardation present; thought process is organized and goal directed. Thought content is on treatment; otherwise TC relevant to pertinent topics and without any delusional content, paranoid ideations or grandiosity; denies any SI/HI. There is no evidence of perceptual disturbance. ?Patients insight and judgment appear intact. Diagnostics Vital Signs (24Hr): Vital Signs - 24 hr 01/31/21 20:36 01/31/21 22:34 Temperature 97.0 F Pulse Rate 114 H 122 H Blood Pressure 129/65 103/66 Body Mass Index 27.4 Labs Results: 01/30/21 20:03 01/30/21 18:10 Labs: Laboratory Results - last 48 hr 01/30/21 01/30/21 01/30/21 17:38 17:39 17:39 WBC RBC Hgb Hct MCV MCH MCHC RDW Plt Count MPV Immature Gran % (Auto) Neut % (Auto) Lymph % (Auto) [place] % (Auto) Eos % (Auto) Baso % (Auto) Lymph # (Auto) [place] # (Auto) Eos # (Auto) Baso # (Auto) Abs Immat Gran (auto) Absolute Neuts (auto) Absolute Nucleated RBC Nucleated RBC % (auto) Sodium Potassium Chloride Carbon Dioxide Anion Gap BUN Creatinine Estim Creat Clear Calc Estimated GFR Random Glucose Calcium Magnesium Total Bilirubin AST ALT Alkaline Phosphatase Total Protein Albumin Urine Color YELLOW Urine Appearance HAZY Urine pH 6.0 Ur Specific [place] >= 1.030 H Urine Protein 2+ H Urine Glucose (UA) NEG Urine Ketones NEG Urine Blood NEG Urine Nitrite NEG Ur Leukocyte Esterase TRACE H Urine RBC 0 Urine WBC 0-2 Ur Squamous Epith Cells 3+ Urine Bacteria 3+ Urine Test Urine Opiates Screen Not Detected Urine Fentanyl Screen Not Detected Ur Barbiturates Screen Not Detected Valproic Acid Ur Phencyclidine Scrn Not Detected Ur Amphetamines Screen Not Detected U Benzodiazepines Scrn POSITIVE H [place] Urine Cocaine Screen Not Detected U Marijuana (THC) Screen POSITIVE H Ethyl Alcohol COVID-19 (SIENNA) Negative COVID-19 [email or web address] Com See Note 01/30/21 01/30/21 01/30/21 17:39 18:10 18:10 WBC RBC Hgb Hct MCV MCH MCHC RDW Plt Count MPV Immature Gran % (Auto) Neut % (Auto) Lymph % (Auto) [place] % (Auto) Eos % (Auto) Baso % (Auto) Lymph # (Auto) [place] # (Auto) Eos # (Auto) Baso # (Auto) Abs Immat Gran (auto) Absolute Neuts (auto) Absolute Nucleated RBC Nucleated RBC % (auto) Sodium 137 Potassium 4.4 Chloride 108 Carbon Dioxide 20 L Anion Gap 13 BUN 5 L Creatinine 0.72 Estim Creat Clear Calc 129.5 Estimated GFR > 60 Random Glucose 88 Calcium 9.9 Magnesium 1.8 Total Bilirubin 0.3 AST 19 ALT 13 Alkaline Phosphatase 73 Total Protein 7.3 Albumin 4.3 Urine Color Urine Appearance Urine pH Ur Specific [place] Urine Protein Urine Glucose (UA) Urine Ketones Urine Blood Urine Nitrite Ur Leukocyte Esterase Urine RBC Urine WBC Ur Squamous Epith Cells Urine Bacteria Urine Test NEGATIVE Urine Opiates Screen Urine Fentanyl Screen Ur Barbiturates Screen Valproic Acid Ur Phencyclidine Scrn Ur Amphetamines Screen U Benzodiazepines Scrn [place] Urine Cocaine Screen U Marijuana (THC) Screen Ethyl Alcohol < 10 COVID-19 (SIENNA) COVID-19 [email or web address] Com 01/30/21 01/30/21 01/31/21 18:10 20:03 Unknown WBC 6.7 RBC 4.51 Hgb 13.8 Hct 40.4 MCV 89.6 MCH 30.6 MCHC 34.2 RDW 11.6 Plt Count 227 MPV 10.3 Immature Gran % (Auto) 0.1 Neut % (Auto) 46.8 Lymph % (Auto) 44.9 H [place] % (Auto) 7.5 Eos % (Auto) 0.4 Baso % (Auto) 0.3 Lymph # (Auto) 3.0 [place] # (Auto) 0.5 Eos # (Auto) 0.0 Baso # (Auto) 0.0 Abs Immat Gran (auto) 0.01 Absolute Neuts (auto) 3.1 Absolute Nucleated RBC 0.000 Nucleated RBC % (auto) 0.0 Sodium Potassium Chloride Carbon Dioxide Anion Gap BUN Creatinine Estim Creat Clear Calc Estimated GFR Random Glucose Calcium Magnesium Total Bilirubin AST ALT Alkaline Phosphatase Total Protein Albumin Urine Color Urine Appearance Urine pH Ur Specific [place] Urine Protein Urine Glucose (UA) Urine Ketones Urine Blood Urine Nitrite Ur Leukocyte Esterase Urine RBC Urine WBC Ur Squamous Epith Cells Urine Bacteria Urine Test Urine Opiates Screen Urine Fentanyl Screen Ur Barbiturates Screen Valproic Acid Cancelled Ur Phencyclidine Scrn Ur Amphetamines Screen U Benzodiazepines Scrn [place] < 0.10 L Urine Cocaine Screen U Marijuana (THC) Screen Ethyl Alcohol COVID-19 (SIENNA) COVID-19 [employer] 02/01/21 09:25 WBC RBC Hgb Hct MCV MCH MCHC RDW Plt Count MPV Immature Gran % (Auto) Neut % (Auto) Lymph % (Auto) [place] % (Auto) Eos % (Auto) Baso % (Auto) Lymph # (Auto) [place] # (Auto) Eos # (Auto) Baso # (Auto) Abs Immat Gran (auto) Absolute Neuts (auto) Absolute Nucleated RBC Nucleated RBC % (auto) Sodium Potassium Chloride Carbon Dioxide Anion Gap BUN Creatinine Estim Creat Clear Calc Estimated GFR Random Glucose Calcium Magnesium Total Bilirubin AST ALT Alkaline Phosphatase Total Protein Albumin Urine Color Urine Appearance Urine pH Ur Specific [place] Urine Protein Urine Glucose (UA) Urine Ketones Urine Blood Urine Nitrite Ur Leukocyte Esterase Urine RBC Urine WBC Ur Squamous Epith Cells Urine Bacteria Urine Test NEGATIVE Urine Opiates Screen Urine Fentanyl Screen Ur Barbiturates Screen Valproic Acid Ur Phencyclidine Scrn Ur Amphetamines Screen U Benzodiazepines Scrn [place] Urine Cocaine Screen U Marijuana (THC) Screen Ethyl Alcohol COVID-19 (SIENNA) COVID-19 [email or web address] Medications Medications Current Medications Acetaminophen (Acetaminophen 325 Mg Tablet) 650 mg PO Q6H PRN PRN Reason: Headache/Pain Mild Scale (1-3) Al Hydroxide/Mg Hydroxide (Magnesium Hydrox/Alum Hydrox 30 Ml Oral.Susp) 30 ml PO Q6H PRN PRN Reason: Heartburn/Nausea Bupropion HCl (Bupropion Hcl Xl 150 Mg Tab.Er.24h) 150 mg PO DAILY GAVIOTA Last Admin: 02/01/21 09:26 Dose: 150 mg Documented by: Clonazepam (Clonazepam 0.5 Mg Tablet) 0.5 mg PO DAILY PRN PRN Reason: moderate anxiety Divalproex Sodium (Divalproex Sodium Er 500 Mg Tab.Er.24h) 1,000 mg PO BEDTIME [place] Hydroxyzine HCl (Hydroxyzine Hcl 25 Mg Tablet) 25 mg PO Q6H PRN PRN Reason: Anxiety Magnesium Hydroxide (Milk Of Magnesia 30 Ml Oral.Susp) 30 ml PO DAILY PRN PRN Reason: Constipation Prazosin HCl (Prazosin Hcl 1 Mg Capsule) 2 mg PO BEDTIME GAVIOTA; Protocol Trazodone HCl (Trazodone Hcl 100 Mg Tablet) 100 mg PO BEDTIME PRN PRN Reason: Insomnia Allergies Allergies Allergy/AdvReac Type Severity Reaction Status Date / Time insect venom [MOSQUITO] Allergy Unknown UNKNOWN Verified 08/19/20 20:48 paliperidone [From INVEGA] Allergy Unknown DYSTONIC Verified 08/19/20 20:48 REACTION haloperidol [HALOPERIDOL] AdvReac Intermediate Dystonic Verified 08/19/20 20:48 reaction Assessment & Plan Assessment & Plan (1) Bipolar disorder: Status: Acute Code(s): F31.9 - Bipolar disorder, unspecified (2) PTSD (post-traumatic stress disorder): Status: Acute Code(s): F43.10 - Post-traumatic stress disorder, unspecified Assessment and Plan: IMPRESSION: Patient is a 21-year-old female with history of bipolar disorder, PTSD who presents for depression with vague SI. Patient currently depressed. No manic symptoms present. SI has resolved. Patient is hoping for medication management to prevent worsening depression Given patient's age and the fact that she is currently on 3 mood stabilizers, and reportedly that she has been able to prevent manic episodes on Depakote alone, will attempt to discontinue some of her medication regimen an effort to see if mono therapy can be sufficient. Will treat anxiety and depression with Wellbutrin as her depression has not been treated despite being on 3 mood stabilizers. Plan: Q 15 minutes checks for safety Patient on 3 day notice Depakote 1000 mg q.h.s. for bipolar disorder; patient says this alone has been effective in the past for preventing todd (will titrate to 1750mg, recent home dose) Continue Wellbutrin XL 150 mg q.a.m.(started this admission) for depression and anxiety; this medication is known to have lower potential for triggering manic episode; patient does not want to be on Latuda right now given its side effect profile Increased to prazosin 2 mg q.h.s. for insomnia due to upsetting thoughts at bedtime (prazosin started this admission) Will continue clonazepam 0.5 mg however will make it daily p.r.n. (down from t.i.d.) and patient agrees to try not to use it unless moderate to severe anxiety To avoid unnecessary polypharmacy: Will discontinue lithium: Patient never wanted to be on this and a causes way cane Will discontinue perphenazine: Patient says this was started for anxiety and has not seemed to made much difference Will discontinue propranolol. Patient says this was used for blood pressure; was never used for help with anxiety and does not want If patient's todd is not prevented by Depakote alone can always reach add medications; however patient wants to see if she can be treated with fewer meds Greater than 50% of the session was spent on counseling and/or coordination of care Reason for contiued inpatient stay Substantial Risk for: rapid decompensation
[2021-02-01 18:00] VITALS: BP 105/68; PULSE 117; TEMP 36.6; O2SAT 99
[2021-02-01] MEDS: Divalproex Sodium ER 500 MG TAB.ER.24H 1000 MG PO (21:12)
[2021-02-01 21:13] VITALS: BP 109/63; PULSE 98
[2021-02-01] MEDS: Prazosin HCL 1 MG CAPSULE 2 MG PO (21:13)
[2021-02-01 21:24] VITALS: BP 109/63; PULSE 98; RESP 18; TEMP 36.6; O2SAT 97
[2021-02-01] MEDS: Acetaminophen 325 MG TABLET 650 MG PO (22:55)
[2021-02-01] MEDS: traZODone HCL 100 MG TABLET PO (22:56)
[2021-02-01] MEDS: Magnesium Hydrox/Alum Hydrox 30 ML ORAL.SUSP PO (22:59)
[2021-02-02] MEDS: buPROPion HCl XL 150 MG TAB.ER.24H PO (08:47)
--- NOTE | 2021-02-02 11:07 | P.PNPSI_ITS ---
Subjective Subjective Date of Service: 02/02/21 Reason For Visit: Depression Interim History: reports overall doing better; tolerating meds; no todd; depression less and does not have that hopeless feeling; self-deprecating thoughts less intense; no SI. wants to leave Wellbuttrin at current dose for now. wants depakote to 1750mg since she says she was most stable at this dose. Discussed hx more, some trauma, role of therapy... hx eating disorder anorexa Nervosa;, spent time at [facility]; no symptoms since for over year Mental Status Exam Mental Status Exam Narrative: ?Pt is alert and oriented; behavior is cooperative, friendly and calm; patient is not in distress; dressed in casual cloths with adequate hygiene; mood is described as better and affect congruent; eye contact appro priate; Speech is normal rate, volume and prosody and not pressured; no psychomotor agitation/retardation present; thought process is organized and goal directed. Thought content is on treatment; otherwise TC relevant to pertinent topics and without any delusional content, paranoid ideations or grandiosity; denies any SI/HI. There is no evidence of perceptual disturbance. ?Patients insight and judgment appear intact. Diagnostics Vital Signs (24Hr): Vital Signs - 24 hr 02/01/21 18:00 02/01/21 21:13 02/01/21 21:24 Temperature 97.8 F 97.8 F Pulse Rate 117 H 98 98 Respiratory Rate 18 Blood Pressure 105/68 109/63 109/63 Pulse Oximetry 99 97 Body Mass Index 27.4 Labs Results: 01/30/21 20:03 01/30/21 18:10 Labs: Laboratory Results - last 48 hr 01/31/21 02/01/21 Unknown 09:25 Urine Test NEGATIVE Valproic Acid Cancelled Medications Medications Current Medications Acetaminophen (Acetaminophen 325 Mg Tablet) 650 mg PO Q6H PRN PRN Reason: Headache/Pain Mild Scale (1-3) Last Admin: 02/01/21 22:55 Dose: 650 mg Documented by: Al Hydroxide/Mg Hydroxide (Magnesium Hydrox/Alum Hydrox 30 Ml Oral.Susp) 30 ml PO Q6H PRN PRN Reason: Heartburn/Nausea Last Admin: 02/01/21 22:59 Dose: 30 ml Documented by: Bupropion HCl (Bupropion Hcl Xl 150 Mg Tab.Er.24h) 150 mg PO DAILY GAVIOTA Last Admin: 02/02/21 08:47 Dose: 150 mg Documented by: Clonazepam (Clonazepam 0.5 Mg Tablet) 0.5 mg PO DAILY PRN PRN Reason: moderate anxiety Divalproex Sodium (Divalproex Sodium Er 250 Mg Tab.Er.24h) 1,750 mg PO BEDTIME GAVIOTA Hydroxyzine HCl (Hydroxyzine Hcl 25 Mg Tablet) 25 mg PO Q6H PRN PRN Reason: Anxiety Magnesium Hydroxide (Milk Of Magnesia 30 Ml Oral.Susp) 30 ml PO DAILY PRN PRN Reason: Constipation Prazosin HCl (Prazosin Hcl 1 Mg Capsule) 2 mg PO BEDTIME GAVIOTA; Protocol Last Admin: 02/01/21 21:13 Dose: 2 mg Documented by: Trazodone HCl (Trazodone Hcl 100 Mg Tablet) 100 mg PO BEDTIME GAVIOTA Allergies Allergies Allergy/AdvReac Type Severity Reaction Status Date / Time insect venom [MOSQUITO] Allergy Unknown UNKNOWN Verified 08/19/20 20:48 paliperidone [From INVEGA] Allergy Unknown DYSTONIC Verified 08/19/20 20:48 REACTION haloperidol [HALOPERIDOL] AdvReac Intermediate Dystonic Verified 08/19/20 20:48 reaction Assessment & Plan Assessment & Plan (1) Bipolar disorder: Status: Acute Code(s): F31.9 - Bipolar disorder, unspecified (2) PTSD (post-traumatic stress disorder): Status: Acute Code(s): F43.10 - Post-traumatic stress disorder, unspecified Assessment and Plan: IMPRESSION: Patient is a 21-year-old female with history of bipolar disorder, PTSD who presents for depression with vague SI. Patient currently depressed. No manic symptoms present. SI has resolved. Patient is hoping for medication management to prevent worsening depression Given patient's age and the fact that she is currently on 3 mood stabilizers, and reportedly that she has been able to prevent manic episodes on Depakote alone, will attempt to discontinue some of her medication regimen an effort to see if mono therapy can be sufficient. Will treat anxiety and depression with Wellbutrin as her depression has not been treated despite being on 3 mood stabilizers. Plan: Q 15 minutes checks for safety Patient on CV Depakote 1750 mg q.h.s. for bipolar disorder; patient says this alone has been effective in the past for preventing todd Continue Wellbutrin XL 150 mg q.a.m.(started this admission) for depression and anxiety; this medication is known to have lower potential for triggering manic episode; patient does not want to be on Latuda right now given its side effect profile Increased to prazosin 2 mg q.h.s. for insomnia due to upsetting thoughts at bedtime (prazosin started this admission) Will continue clonazepam 0.5 mg however will make it daily p.r.n. (down from t.i.d.) and patient agrees to try not to use it unless moderate to severe anxiety To avoid unnecessary polypharmacy: Will discontinue lithium: Patient never wanted to be on this and a causes way cane Will discontinue perphenazine: Patient says this was started for anxiety and has not seemed to made much difference Will discontinue propranolol. Patient says this was used for blood pressure; was never used for help with anxiety and does not want If patient's todd is not prevented by Depakote alone can always reach add medications; however patient wants to see if she can be treated with fewer meds Greater than 50% of the session was spent on counseling and/or coordination of care Reason for contiued inpatient stay Substantial Risk for: med/psych decompensation
[2021-02-02] MEDS: Magnesium Hydrox/Alum Hydrox 30 ML ORAL.SUSP PO (14:51)
[2021-02-02 21:00] VITALS: BP 112/57; PULSE 104; TEMP 36; O2SAT 99
[2021-02-02 21:08] VITALS: BP 112/57; PULSE 104
[2021-02-02] MEDS: traZODone HCL 100 MG TABLET PO (21:08)
[2021-02-02] MEDS: Prazosin HCL 1 MG CAPSULE 2 MG PO (21:08)
[2021-02-02] MEDS: Divalproex Sodium ER 250 MG TAB.ER.24H 1750 MG PO (21:09)
[2021-02-02] MEDS: Acetaminophen 325 MG TABLET 650 MG PO (22:29)
[2021-02-03] MEDS: buPROPion HCl XL 150 MG TAB.ER.24H PO (09:09)
[2021-02-03 10:25] VITALS: BP 127/62; PULSE 95
--- NOTE | 2021-02-03 11:05 | P.PNPSI_ITS ---
Subjective Subjective Date of Service: 02/03/21 Reason For Visit: Depression Interim History: pt reports she's feeling better; significantly lower self- deprecating thoughts, no SI, feels more positive, able to joke around. Pt says sleeping overall well (still trouble falling asleep, but able to sleep through the night). pt has not taken prn Clonazepam during this admission in effort to utilize coping skills. Mental Status Exam Mental Status Exam Narrative: Pt is alert and oriented; behavior is cooperative, friendly and calm; patient is not in distress; dressed in casual cloths with adequate hygiene; mood is described as better and affect congruent; eye contact appropriate; Speech is normal rate, volume and prosody and not pressured; no psychomotor agitation/retardation present; thought process is organized and goal directed. Thought content is on treatment; otherwise TC relevant to pertinent topics and without any delusional content, paranoid ideations or grandiosity; denies any SI/HI. There is no evidence of perceptual disturbance. ?Patients insight and judgment appear intact. Diagnostics Vital Signs (24Hr): Vital Signs - 24 hr 02/02/21 21:00 02/02/21 21:08 02/03/21 10:25 Temperature 96.8 F Pulse Rate 104 H 104 H 95 Blood Pressure 112/57 L 112/57 L 127/62 Pulse Oximetry 99 Body Mass Index 27.4 Labs Results: 01/30/21 20:03 01/30/21 18:10 Medications Medications Current Medications Acetaminophen (Acetaminophen 325 Mg Tablet) 650 mg PO Q6H PRN PRN Reason: Headache/Pain Mild Scale (1-3) Last Admin: 02/02/21 22:29 Dose: 650 mg Documented by: Al Hydroxide/Mg Hydroxide (Magnesium Hydrox/Alum Hydrox 30 Ml Oral.Susp) 30 ml PO Q6H PRN PRN Reason: Heartburn/Nausea Last Admin: 02/02/21 14:51 Dose: 30 ml Documented by: Bupropion HCl (Bupropion Hcl Xl 150 Mg Tab.Er.24h) 150 mg PO DAILY GAVIOTA Last Admin: 02/03/21 09:09 Dose: 150 mg Documented by: Clonazepam (Clonazepam 0.5 Mg Tablet) 0.5 mg PO DAILY PRN PRN Reason: moderate anxiety Divalproex Sodium (Divalproex Sodium Er 250 Mg Tab.Er.24h) 1,750 mg PO BEDTIME GAVIOTA Last Admin: 02/02/21 21:09 Dose: 1,750 mg Documented by: Hydroxyzine HCl (Hydroxyzine Hcl 25 Mg Tablet) 25 mg PO Q6H PRN PRN Reason: Anxiety Magnesium Hydroxide (Milk Of Magnesia 30 Ml Oral.Susp) 30 ml PO DAILY PRN PRN Reason: Constipation Prazosin HCl (Prazosin Hcl 1 Mg Capsule) 2 mg PO BEDTIME GAVIOTA; Protocol Last Admin: 02/02/21 21:08 Dose: 2 mg Documented by: Trazodone HCl (Trazodone Hcl 100 Mg Tablet) 100 mg PO BEDTIME GAVIOTA Last Admin: 02/02/21 21:08 Dose: 100 mg Documented by: Allergies Allergies Allergy/AdvReac Type Severity Reaction Status Date / Time insect venom [MOSQUITO] Allergy Unknown UNKNOWN Verified 08/19/20 20:48 paliperidone [From INVEGA] Allergy Unknown DYSTONIC Verified 08/19/20 20:48 REACTION haloperidol [HALOPERIDOL] AdvReac Intermediate Dystonic Verified 08/19/20 20:48 reaction Assessment & Plan Assessment & Plan (1) Bipolar disorder: Status: Chronic Code(s): F31.9 - Bipolar disorder, unspecified (2) PTSD (post-traumatic stress disorder): Status: Chronic Code(s): F43.10 - Post-traumatic stress disorder, unspecified Assessment and Plan: IMPRESSION: Patient is a 21-year-old female with history of bipolar disorder, PTSD who presents for depression with vague SI. Patient currently depressed. No manic symptoms present. SI has resolved. Patient is hoping for medication management to prevent worsening depression Given patient's age and the fact that she is currently on 3 mood stabilizers, and reportedly that she has been able to prevent manic episodes on Depakote alone, will attempt to discontinue some of her medication regimen an effort to see if mono therapy can be sufficient. Will treat anxiety and depression with Wellbutrin as her depression has not been treated despite being on 3 mood stabilizers. pt stabilizing; no SI; less self-deprecating thoughts; forthcoming in sessions Plan: Q 15 minutes checks for safety Patient on CV Depakote 1750 mg q.h.s. for bipolar disorder; patient says this alone has been effective in the past for preventing todd Continue Wellbutrin XL 150 mg q.a.m.(started this admission) for depression and anxiety; this medication is known to have lower potential for triggering manic episode; patient does not want to be on Latuda right now given its side effect profile Increased to prazosin 2 mg q.h.s. for insomnia due to upsetting thoughts at bedtime (prazosin started this admission) Will continue clonazepam 0.5 mg however will make it daily p.r.n. (down from t.i.d.) and patient agrees to try not to use it unless moderate to severe anxiety To avoid unnecessary polypharmacy: Will discontinue lithium: Patient never wanted to be on this and a causes way cane Will discontinue perphenazine: Patient says this was started for anxiety and has not seemed to made much difference Will discontinue propranolol. Patient says this was used for blood pressure; was never used for help with anxiety and does not want If patient's todd is not prevented by Depakote alone can always reach add medic ations; however patient wants to see if she can be treated with fewer meds Greater than 50% of the session was spent on counseling and/or coordination of care Reason for contiued inpatient stay Substantial Risk for: other (collateral regarding baseline)
[2021-02-03 22:30] VITALS: BP 121/56; PULSE 102; TEMP 36.6; O2SAT 99
[2021-02-03 22:47] VITALS: BP 121/56; PULSE 102
[2021-02-03] MEDS: Divalproex Sodium ER 250 MG TAB.ER.24H 1750 MG PO (22:47)
[2021-02-03] MEDS: Prazosin HCL 1 MG CAPSULE 2 MG PO (22:47)
[2021-02-03] MEDS: traZODone HCL 100 MG TABLET PO (22:48)
[2021-02-04 09:02] VITALS: BP 102/64; PULSE 101; TEMP 35.5; O2SAT 98
[2021-02-04] MEDS: buPROPion HCl XL 150 MG TAB.ER.24H PO (09:23)
[2021-02-04] MEDS: Ondansetron ODT 4 MG TAB.RAPDIS TRANSLINGU (16:00)
--- NOTE | 2021-02-04 16:55 | HO.PSYCHPN ---
Subjective Subjective Date of Service: 02/04/21 Reason For Visit: Depression Interim History: Patient reports mood is good and has definitely improved with Wellbutrin. She is feeling frustrated with being on the unit and says that during past admissions, on the day before she goes home, she gets emotional and anxious and just wants to leave. Patient remains feeling overall stable. She also says she is having a hard time eating, but thinks that is due to anxiety and again for casts that this will resolve when she gets back home. No SI no HI no AVH. Tolerated her medications well. Still has some trouble sleeping but feels that prazosin has been helpful and wants to continue. Mental Status Exam Mental Status Exam Narrative: Pt is alert and oriented; behavior is cooperative, friendly and calm; patient is not in distress; dressed in casual cloths with adequate hygiene; mood is described as better and affect congruent; eye contact appropriate; Speech is normal rate, volume and prosody and not pressured; no psychomotor agitation/retardation present; thought process is organized and goal directed. Thought content is on treatment; otherwise TC relevant to pertinent topics and without any delusional content, paranoid ideations or grandiosity; denies any SI/HI. There is no evidence of perceptual disturbance. ?Patients insight and judgment appear intact. Diagnostics Vital Signs (24Hr): Vital Signs - 24 hr 02/03/21 22:30 02/03/21 22:47 02/04/21 09:02 Temperature 97.9 F 95.9 F L Pulse Rate 102 H 102 H 101 H Blood Pressure 121/56 L 121/56 L 102/64 Pulse Oximetry 99 98 Body Mass Index 27.4 Labs Results: 01/30/21 20:03 01/30/21 18:10 Medications Medications Current Medications Acetaminophen (Acetaminophen 325 Mg Tablet) 650 mg PO Q6H PRN PRN Reason: Headache/Pain Mild Scale (1-3) Last Admin: 02/02/21 22:29 Dose: 650 mg Documented by: Al Hydroxide/Mg Hydroxide (Magnesium Hydrox/Alum Hydrox 30 Ml Oral.Susp) 30 ml PO Q6H PRN PRN Reason: Heartburn/Nausea Last Admin: 02/02/21 14:51 Dose: 30 ml Documented by: Bupropion HCl (Bupropion Hcl Xl 150 Mg Tab.Er.24h) 150 mg PO DAILY GAVIOTA Last Admin: 02/04/21 09:23 Dose: 150 mg Documented by: Clonazepam (Clonazepam 0.5 Mg Tablet) 0.5 mg PO DAILY PRN PRN Reason: moderate anxiety Divalproex Sodium (Divalproex Sodium Er 250 Mg Tab.Er.24h) 1,750 mg PO BEDTIME GAVIOTA Last Admin: 02/03/21 22:47 Dose: 1,750 mg Documented by: Hydroxyzine HCl (Hydroxyzine Hcl 25 Mg Tablet) 25 mg PO Q6H PRN PRN Reason: Anxiety Magnesium Hydroxide (Milk Of Magnesia 30 Ml Oral.Susp) 30 ml PO DAILY PRN PRN Reason: Constipation Prazosin HCl (Prazosin Hcl 1 Mg Capsule) 2 mg PO BEDTIME GAVIOTA; Protocol Last Admin: 02/03/21 22:47 Dose: 2 mg Documented by: Trazodone HCl (Trazodone Hcl 100 Mg Tablet) 100 mg PO BEDTIME GAVIOTA Last Admin: 02/03/21 22:48 Dose: 100 mg Documented by: Allergies Allergies Allergy/AdvReac Type Severity Reaction Status Date / Time insect venom [MOSQUITO] Allergy Unknown UNKNOWN Verified 08/19/20 20:48 paliperidone [From INVEGA] Allergy Unknown DYSTONIC Verified 08/19/20 20:48 REACTION haloperidol [HALOPERIDOL] AdvReac Intermediate Dystonic Verified 08/19/20 20:48 reaction Assessment & Plan Assessment & Plan (1) Bipolar disorder: Status: Chronic Code(s): F31.9 - Bipolar disorder, unspecified (2) PTSD (post-traumatic stress disorder): Status: Chronic Code(s): F43.10 - Post-traumatic stress disorder, unspecified Assessment and Plan: IMPRESSION: Patient is a 21-year-old female with history of bipolar disorder, PTSD who presents for depression with vague SI. Patient currently depressed. No manic symptoms present. SI has resolved. Patient is hoping for medication management to prevent worsening depression Given patient's age and the fact that she is currently on 3 mood stabilizers, and reportedly that she has been able to prevent manic episodes on Depakote alone, will attempt to discontinue some of her medication regimen an effort to see if mono therapy can be sufficient. Will treat anxiety and depression with Wellbutrin as her depression has not been treated despite being on 3 mood stabilizers. pt stable; no SI; no self-deprecating thoughts; forthcoming in sessions. Reports mood is good anxiety low and she feels ready to go home Patient is appropriate for discharge Plan: Q 15 minutes checks for safety Patient on CV Depakote 1750 mg q.h.s. for bipolar disorder; patient says this alone has been effective in the past for preventing todd Continue Wellbutrin XL 150 mg q.a.m.(started this admission) for depression and anxiety; this medication is known to have lower potential for triggering manic episode; patient does not want to be on Latuda right now given its side effect profile Increased to prazosin 2 mg q.h.s. for insomnia due to upsetting thoughts at bedtime (prazosin started this admission) Will continue clonazepam 0.5 mg however will make it daily p.r.n. (down from t.i.d.) and patient agrees to try not to use it unless moderate to severe anxiety To avoid unnecessary polypharmacy: Will discontinue lithium: Patient never wanted to be on this and a causes way cane Will discontinue perphenazine: Patient says this was started for anxiety and has not seemed to made much difference Will discontinue propranolol. Patient says this was used for blood pressure; was never used for help with anxiety and does not want If patient's todd is not prevented by Depakote alone can always reach add medications; however patient wants to see if she can be treated with fewer meds Greater than 50% of the session was spent on counseling and/or coordination of care Reason for contiued inpatient stay Substantial Risk for: stable for discharge
--- NOTE | 2021-02-04 17:11 | P.DS_ITS ---
DS: Providers Provider Date of Service: 02/05/21 Date of admission: 01/30/21 23:59 Date of discharge: 02/05/21 Primary care physician: None Physician Attending physician on admission: Mario Aranda Consults: 01/30/21 23:58 Consult to Hospitalist Routine Consulting Provider: Hospitalist Reason For Exam: admission Attending physician on discharge: Mario Aranda DS: Diagnosis Discharge Diagnosis (1) Bipolar 1 disorder, depressed, full remission: Status: Chronic (2) PTSD (post-traumatic stress disorder): Status: Chronic DS: Medications Discharge Medications Home Medications: Previous Rx's Medication Instructions Recorded bupropion HCl 150 mg 24 hr tablet, 150 mg PO DAILY 30 Days #30 tab 02/04/21 extended release divalproex 250 mg tablet,extended 250 mg PO BEDTIME 30 Days #30 tab 02/04/21 release 24 hr divalproex 500 mg tablet,extended 1,500 mg PO BEDTIME 30 Days #90 tab 02/04/21 release 24 hr (Depakote ER) prazosin 1 mg capsule 2 mg PO BEDTIME 30 Days #60 cap 02/04/21 trazodone 100 mg tablet 100 mg PO BEDTIME 30 Days #30 tab 02/04/21 Mental Status Exam Mental Status Exam Narrative: Pt is alert and oriented; behavior is cooperative, friendly and calm; patient is not in distress; dressed in casual cloths with adequate hygiene; mood is described as better and affect congruent; eye contact appropriate; Speech is normal rate, volume and prosody and not pressured; no psychomotor agitation/retardation present; thought process is organized and goal directed. Thought content is on treatment; otherwise TC relevant to pertinent topics and without any delusional content, paranoid ideations or grandiosity; denies any SI/HI. There is no evidence of perceptual disturbance. ?Patients insight and judgment are intact. Data Data Completed and Pending Completed studies during hospitalization [Text1]: 01/30/21 01/30/21 01/30/21 17:38 17:39 17:39 WBC RBC Hgb Hct MCV MCH MCHC RDW Plt Count MPV Immature Gran % (Auto) Neut % (Auto) Lymph % (Auto) [place] % (Auto) Eos % (Auto) Baso % (Auto) Lymph # (Auto) [place] # (Auto) Eos # (Auto) Baso # (Auto) Abs Immat Gran (auto) Absolute Neuts (auto) Absolute Nucleated RBC Nucleated RBC % (auto) Sodium Potassium Chloride Carbon Dioxide Anion Gap BUN Creatinine Estim Creat Clear Calc Estimated GFR Random Glucose Calcium Magnesium Total Bilirubin AST ALT Alkaline Phosphatase Total Protein Albumin Urine Color YELLOW Urine Appearance HAZY Urine pH 6.0 Ur Specific [place] >= 1.030 H Urine Protein 2+ H Urine Glucose (UA) NEG Urine Ketones NEG Urine Blood NEG Urine Nitrite NEG Ur Leukocyte Esterase TRACE H Urine RBC 0 Urine WBC 0-2 Ur Squamous Epith Cells 3+ Urine Bacteria 3+ Urine Test Urine Opiates Screen Not Detected Urine Fentanyl Screen Not Detected Ur Barbiturates Screen Not Detected Valproic Acid Ur Phencyclidine Scrn Not Detected Ur Amphetamines Screen Not Detected U Benzodiazepines Scrn POSITIVE H [place] Urine Cocaine Screen Not Detected U Marijuana (THC) Screen POSITIVE H Ethyl Alcohol COVID-19 (SIENNA) Negative COVID-19 [employer] Com See Note 01/30/21 01/30/21 01/30/21 17:39 18:10 18:10 WBC RBC Hgb Hct MCV MCH MCHC RDW Plt Count MPV Immature Gran % (Auto) Neut % (Auto) Lymph % (Auto) [place] % (Auto) Eos % (Auto) Baso % (Auto) Lymph # (Auto) [place] # (Auto) Eos # (Auto) Baso # (Auto) Abs Immat Gran (auto) Absolute Neuts (auto) Absolute Nucleated RBC Nucleated RBC % (auto) Sodium 137 Potassium 4.4 Chloride 108 Carbon Dioxide 20 L Anion Gap 13 BUN 5 L Creatinine 0.72 Estim Creat Clear Calc 129.5 Estimated GFR > 60 Random Glucose 88 Calcium 9.9 Magnesium 1.8 Total Bilirubin 0.3 AST 19 ALT 13 Alkaline Phosphatase 73 Total Protein 7.3 Albumin 4.3 Urine Color Urine Appearance Urine pH Ur Specific [place] Urine Protein Urine Glucose (UA) Urine Ketones Urine Blood Urine Nitrite Ur Leukocyte Esterase Urine RBC Urine WBC Ur Squamous Epith Cells Urine Bacteria Urine Test NEGATIVE Urine Opiates Screen Urine Fentanyl Screen Ur Barbiturates Screen Valproic Acid Ur Phencyclidine Scrn Ur Amphetamines Screen U Benzodiazepines Scrn [place] Urine Cocaine Screen U Marijuana (THC) Screen Ethyl Alcohol < 10 COVID-19 (SIENNA) COVID-19 [employer] Com 01/30/21 01/30/21 01/31/21 18:10 20:03 Unknown WBC 6.7 RBC 4.51 Hgb 13.8 Hct 40.4 MCV 89.6 MCH 30.6 MCHC 34.2 RDW 11.6 Plt Count 227 MPV 10.3 Immature Gran % (Auto) 0.1 Neut % (Auto) 46.8 Lymph % (Auto) 44.9 H [place] % (Auto) 7.5 Eos % (Auto) 0.4 Baso % (Auto) 0.3 Lymph # (Auto) 3.0 [place] # (Auto) 0.5 Eos # (Auto) 0.0 Baso # (Auto) 0.0 Abs Immat Gran (auto) 0.01 Absolute Neuts (auto) 3.1 Absolute Nucleated RBC 0.000 Nucleated RBC % (auto) 0.0 Sodium Potassium Chloride Carbon Dioxide Anion Gap BUN Creatinine Estim Creat Clear Calc Estimated GFR Random Glucose Calcium Magnesium Total Bilirubin AST ALT Alkaline Phosphatase Total Protein Albumin Urine Color Urine Appearance Urine pH Ur Specific [place] Urine Protein Urine Glucose (UA) Urine Ketones Urine Blood Urine Nitrite Ur Leukocyte Esterase Urine RBC Urine WBC Ur Squamous Epith Cells Urine Bacteria Urine Test Urine Opiates Screen Urine Fentanyl Screen Ur Barbiturates Screen Valproic Acid Cancelled Ur Phencyclidine Scrn Ur Amphetamines Screen U Benzodiazepines Scrn [place] < 0.10 L Urine Cocaine Screen U Marijuana (THC) Screen Ethyl Alcohol COVID-19 (SIENNA) COVID-[employer] Com 02/01/21 09:25 WBC RBC Hgb Hct MCV MCH MCHC RDW Plt Count MPV Immature Gran % (Auto) Neut % (Auto) Lymph % (Auto) [place] % (Auto) Eos % (Auto) Baso % (Auto) Lymph # (Auto) [place] # (Auto) Eos # (Auto) Baso # (Auto) Abs Immat Gran (auto) Absolute Neuts (auto) Absolute Nucleated RBC Nucleated RBC % (auto) Sodium Potassium Chloride Carbon Dioxide Anion Gap BUN Creatinine Estim Creat Clear Calc Estimated GFR Random Glucose Calcium Magnesium Total Bilirubin AST ALT Alkaline Phosphatase Total Protein Albumin Urine Color Urine Appearance Urine pH Ur Specific [place] Urine Protein Urine Glucose (UA) Urine Ketones Urine Blood Urine Nitrite Ur Leukocyte Esterase Urine RBC Urine WBC Ur Squamous Epith Cells Urine Bacteria Urine Test NEGATIVE Urine Opiates Screen Urine Fentanyl Screen Ur Barbiturates Screen Valproic Acid Ur Phencyclidine Scrn Ur Amphetamines Screen U Benzodiazepines Scrn [place] Urine Cocaine Screen U Marijuana (THC) Screen Ethyl Alcohol COVID-19 (SIENNA) COVID-19 [employer] Com 01/30/21 Unknown Urine clean catch - Urine barlow top Urine Culture - Final DS: Summary Hospital Course Hospital Course: Patient is a 21-year-old female with history of bipolar disorder, PTSD who presents for depression with vague SI. On admission, Patient depressed but reported SI fully resolved; No manic s ymptoms present and pt calm and cooperative throughout admission.? Patient is hoping for medication management to prevent worsening depression. She reported that Depakote has been helpful in preventing manic episodes but nothing has relieved her depression. Regarding medications: As she was on 3 mood stabilizers but reported depakote alone was sufficient (and that [place] was ineffective and causing wt gain), patient was tapered off perphenazine and lithium and started on Wellbutrin for depression; propranolol also dc'd at her request to which newspaper writer agreed since BP WNL and she felt it unhelpful for anxiety. Patient also did not want to continue with Clonazepam given it's side-effect profile, did not use any of it as prn while on the unit and it was dc'd. Prazosin was increased to 2mg qhs for nighttime upsetting thoughts to good effect. Pt remained in good behavioral and impulse control and denied SI/HI throughout her admission; she was appropriate with peers and staff and forthcoming in therapy sessions. Her depression abated and mood significantly improved and she reported that self-deprecating thoughts, normally chronic, had also resolved. Pt said she felt safe and stable and ready for discharge. Pt was in good mood, with bright affect, future oriented and optimistic about treatment plan. Pt was not in imminent risk for harm to self or others was appropriate for discharge. Her request for discharge honored. of note, depakote level was a little high and so dose was lowered on discharge; discussed with patient who felt fine about this and said she would follow up wi th her outpt provider. Status at Discharge Functional status at discharge: independent ambulation Overall status at discharge: patient is back to baseline Time Spent with Patient Time attestation: Total time spent providing and/or coordinating discharge services: Time spent: Greater than 30 minutes Discharge Plan Discharge Patient Disposition: Home, Self-Care Discharge Diagnosis: Bipolar disorder, recurrent, moderate (to severe), most recently depressed, in full remission Referrals: Sahara Carrillo (therapy) [Other] - 02/06/21 1:45 pm (This is a Telehealth appointment) Clarisse Gardinersprobin (medication management) [Other] - 03/04/21 11:00 am (This is a Telehealth appointment) [facility] [Other] (Walk in if needed.) Physician,None [Primary Care Provider] - 1 Week Discharge Medications: New prazosin 1 mg Capsule 2 mg PO BEDTIME 30 Days Qty: 60 RF: 0 bupropion HCl 150 mg Tablet Extended Release 24 Hr 150 mg PO DAILY 30 Days Qty: 30 RF: 0 trazodone 100 mg Tablet 100 mg PO BEDTIME 30 Days Qty: 30 RF: 0 divalproex [Depakote ER] 500 mg tablet extended release 24 hr 1,500 mg PO DAILY 30 Days Qty: 90 RF: 0 Discontinued propranolol 20 mg Tablet 20 mg PO BID Qty: 60 RF: 0 divalproex 500 mg Tablet Extended Release 24 Hr 1,500 mg PO BEDTIME Qty: 90 RF: 0 perphenazine 4 mg Tablet 4 mg PO DAILY PRN (Reason: Psychosis) Qty: 30 RF: 0 perphenazine 8 mg Tablet 8 mg PO BEDTIME Qty: 30 RF: 0 clonazepam 0.5 mg tablet 0.5 mg PO BID RF: 0 Discharge Orders: Discharge Order (Routine); Ordered 02/05/21 Ordered By: Mario Aranad Diet: regular diet Activity on Discharge: As tolerated Stand Alone Forms: Patient Portal Discharge page, Community Support Care Plan Goals: Maintain mood and safe behaviors Take medications as prescribed Practice coping skills Continue with outpatient providers and reach out to them as needed Health Concerns: Mood stability and behaviors Plan of Treatment: Follow up with your psychiatric provider regarding above concerns Take medications as prescribed Assessment: Risk assessment at time of discharge:? Patient was interviewed prior to discharge and found to be fully oriented and without any SI or HI. Patient has insight and demonstrates good judgment in terms of wanting to pursue treatment. Patient is not in imminent risk of harm to self or others and has a safety plan that includes presenting to the closest ER or calling 911 if feeling unsafe.? Patient has been observed closely by nursing and unit staff throughout admission; patient has not engaged in any behaviors that suggest dangerousness to self or others and has demonstrated appropriate behaviors and impulse control. Discharge Date/Time: 02/05/21 13:47
[2021-02-04 22:45] VITALS: BP 118/58; PULSE 102; TEMP 36.2; O2SAT 100
[2021-02-04 23:12] VITALS: BP 139/72; PULSE 102
[2021-02-04] MEDS: Prazosin HCL 1 MG CAPSULE 2 MG PO (23:12)
[2021-02-04] MEDS: traZODone HCL 100 MG TABLET PO (23:13)
[2021-02-04] MEDS: Divalproex Sodium ER 250 MG TAB.ER.24H 1750 MG PO (23:13)
[2021-02-05 08:45] LABS: Ammonia 29 umol/L (13-55)
[2021-02-05 08:46] VITALS: BP 113/64; PULSE 94; TEMP 35.1; O2SAT 99
[2021-02-05] MEDS: buPROPion HCl XL 150 MG TAB.ER.24H PO (09:02)
[2021-02-05 09:09] LABS: Alanine Aminotransferase 19 U/L (0-31); Albumin Level 4.3 g/dL (3.5-5.0); Alkaline Phosphatase 66 U/L (39-117); Aspartate Amino Transferase 17 U/L (5-31); Bilirubin Direct 0.2 mg/dL (0.0-0.5); Bilirubin Total 0.3 mg/dL (0.0-1.0); Total Protein 7.1 g/dL (6.5-8.0)
[2021-02-05 09:14] LABS: Valproate 107.9 mcg/mL (50.0-100.0)
[2021-02-05 09:42] VITALS: BP 113/64; PULSE 94; TEMP 35.1; O2SAT 98
== END 2021-02-05 13:47 | disposition home or self-care (01) | DRG 753 ==
LOC: HO.ED 22:53 → HO.PM5 01-31 00:09
PROVIDERS: Physician Assistant Medical; Admitting Provider Psychiatry & Neurology Psychiatry; Emergency Provider Emergency Medicine; Visit Provider Psychiatry & Neurology Psychiatry
DX: F31.4 Bipolar disorder, current episode depressed, severe, without psychotic features (principal); R45.851 Suicidal ideations; F17.210 Nicotine dependence, cigarettes, uncomplicated; F43.10 Post-traumatic stress disorder, unspecified; Z20.822 Contact with and (suspected) exposure to COVID-19; Z71.6 Tobacco abuse counseling; Z79.899 Other long term (current) drug therapy
CPT/HCPCS: 36415; 80053; 80076; 80164; 80178; 80307; 81001; 81025; 82077; 82140; 83735; 85025; 87086; 87635; 93005; 99285

== ENCOUNTER 2021-05-15 08:20 | Emergency (ER) | payer MEDICAID, SELFPAY ==
--- NOTE | ~2021-05-15 | XR_ITS ---
EXAMINATION: XR CHEST CLINICAL INFORMATION: [place] of, cough, and vaccination COMPARISON: None TECHNIQUE: Frontal view of the chest was obtained. FINDINGS: No significant abnormality is noted involving the heart, lungs, mediastinum, bony thorax or soft tissues. XR/XR chest 1V IMPRESSION: Unremarkable chest examination.
[2021-05-15 08:50] VITALS: BP 87/64; PULSE 116; RESP 18; TEMP 36.4; O2SAT 97; BMI 24.5
--- NOTE | 2021-05-15 09:20 | ED.PSYCH ---
HPI - Psych General Chief Complaint: Psychiatric Symptoms Stated Complaint: crisis Time Seen by Provider: 05/15/21 08:44 Source: patient Mode of arrival: ambulatory Limitations: no limitations History of Present Illness HPI Narrative: 21-year-old female unvaccinated with bipolar disorder off her medications for 3 weeks presents to the emergency department not manic she is not suicidal but feels like she needs be seen. Patient does have cold symptoms and cough. Patient has no falls or fever patient denies chest pain nausea vomiting or diarrhea. Related Data Previous Rx's Medication Instructions Recorded bupropion HCl 150 mg 24 hr tablet, 150 mg PO DAILY 30 Days #30 tab 02/04/21 extended release prazosin 1 mg capsule 2 mg PO BEDTIME 30 Days #60 cap 02/04/21 trazodone 100 mg tablet 100 mg PO BEDTIME 30 Days #30 tab 02/04/21 divalproex 500 mg tablet,extended 1,500 mg PO DAILY 30 Days #90 tab 02/05/21 release 24 hr (Depakote ER) Allergies Allergy/AdvReac Type Severity Reaction Status Date / Time insect venom [MOSQUITO] Allergy Unknown UNKNOWN Verified 08/19/20 20:48 paliperidone [From INVEGA] Allergy Unknown DYSTONIC Verified 08/19/20 20:48 REACTION haloperidol [HALOPERIDOL] AdvReac Intermediate Dystonic Verified 08/19/20 20:48 reaction Review of Systems Review of Systems: Review of systems: General: Patient denies any fever chills recent illness or falls Musculoskeletal: Denies back pain or body aches or other injuries HEENT: runny nose denies headache, , ear pain Respiratory: cough denies shortness of breath Cardiovascular: no chest pain or palpitations : denies dysuria, frequency Abdomen: no nausea vomiting denies abdominal pain Extremities: no swelling, no pain Skin: no diaphoresis Yes all other systems are reviewed and are negative PMFSH Past Medical History Medical History (Updated 05/15/21 @ 15:05 by Ant Beauchamp DO) Anxiety Bipolar 1 disorder Bipolar 1 disorder, depressed, full remission Depression PTSD (post-traumatic stress disorder) PTSD (post-traumatic stress disorder) Social History Social History Household Members: Family Household Members Other:: Mom, 2 brothers, 1 sister. Housing: Apartment Do you presently have visiting nurse or other home services: No Alcohol intake: former Patient Tobacco Use Status: Current everyday Tobacco user Tobacco use type: Cigarette Cigarettes Per Day: 3 Years Smoked: 5 years e-Cigarette/Vaping Use: Never Used Second Hand Smoke Exposure: Yes Substance Use Type: Marijuana Advance Directives: No Advance Directives Information Provided: No Patient : No service: No Sexual orientation: Lesbian/Garcia/Homosexual Physical Exam Vital Signs: Vital Signs: Last Vital Signs Temp 97.6 F 05/15/21 08:50 Pulse 81 05/15/21 12:38 Resp 16 05/15/21 11:54 BP 101/68 05/15/21 12:38 Pulse Ox 99 05/15/21 11:54 BMI result Body Mass Index 24.5 General: Well-appearing well-nourished in no signs of distress HEENT: Normocephalic atraumatic Neck: No signs of JVD, no masses no tenderness or lymphadenopathy Cardiovascular: Regular rate and rhythm Respiratory: Clear to auscultation bilaterally Abdomen: Soft nontender no masses Extremities: Normal pedal pulses no signs of edema Skin: Dry warm no rashes Back: No tenderness full ROM MDM - Psych MDM Narrative Medical decision making narrative: Patient offered medications for several weeks and to be hypertensive and tachycardic I feel the patient is not safe to be in the [facility] area I requested charge nurse that the patient placed in room. Patient placed in bed 12. Labs were all okay patient doing well in her room medically cleared for evaluation Differential Diagnosis Differential diagnosis: Likely acute psychosis, homicidal ideation, suicidal ideation, bipolar disorder, depression, drug-induced psychotic disorder, acute anxiety, substance abuse and mood disorder Lab Data Result diagrams: 05/15/21 11:52 05/15/21 11:52 Labs: Lab Results 05/15/21 05/15/21 05/15/21 Range/Units 09:41 11:52 11:52 WBC 5.5 (4.8-10.8) X10*3/uL RBC 4.79 (4.20-5.50) X10*6/uL Hgb 14.6 (12.0-16.0) g/dl Hct 42.2 (37.0-47.0) % MCV 88.1 (80.0-98.0) fL MCH 30.5 (27.0-33.0) pg MCHC 34.6 (31.0-35.0) g/dl RDW 13.1 (11.0-16.0) % Plt Count 226 (160-400) X10*3/uL MPV 10.6 (9.4-12.3) fL Immature Gran % (Auto) 0.2 (0.0-0.4) % Neut % (Auto) 47.0 (45-73) % Lymph % (Auto) 42.3 H (20-40) % [place] % (Auto) 9.9 (2-11) % Eos % (Auto) 0.2 (0-4) % Baso % (Auto) 0.4 (0-2) % Lymph # (Auto) 2.3 (1.2-4.9) X10*3/uL [place] # (Auto) 0.6 (0.1-1.2) X10*3/uL Eos # (Auto) 0.0 (0.0-0.4) X10*3/uL Baso # (Auto) 0.0 (0.0-0.2) X10*3/uL Abs Immat Gran (auto) 0.01 (0.00-0.03) X10*3/uL Absolute Neuts (auto) 2.6 (2.0-8.3) x10*3/uL Absolute Nucleated RBC 0.000 (0.0-0.012) X10*3/uL Nucleated RBC % (auto) 0.0 (0.0-0.2) /100WBC Sodium 138 (135-145) mmol/L Potassium 4.1 (3.3-5.1) mmol/L Chloride 107 (96-108) mmol/L Carbon Dioxide 22 (22-29) mmol/L Anion Gap 13 (12-20) BUN 5 L (9-16) mg/dL Creatinine 0.66 (0.5-1.4) mg/dL Estim Creat Clear Calc 111.5 Estimated GFR > 60 Random Glucose 100 (60-115) mg/dL Calcium 10.0 (8.4-10.2) mg/dL Total Bilirubin 0.4 (0.0-1.0) mg/dL Direct Bilirubin 0.2 (0.0-0.5) mg/dL AST 41 H D (5-31) U/L ALT 37 H (0-31) U/L Alkaline Phosphatase 73 (39-117) U/L Total Protein 7.6 (6.5-8.0) g/dL Albumin 4.4 (3.5-5.0) g/dL Lipase 23 (8-78) U/L Urine Color Urine Appearance Urine pH (5.0-8.0) Ur Specific [place] (1.005-1.025) Urine Protein (NEG-TRACE) MG/DL Urine Glucose (UA) (NEG) MG/DL Urine Ketones (NEG) MG/DL Urine Blood (NEG) Urine Nitrite (NEG) Ur Leukocyte Esterase (NEG) Urine RBC (0) /HPF Urine WBC (0-4) /HPF Ur Squamous Epith Cells /LPF Urine Bacteria /LPF Urine Test (NEGATIVE) Salicylates < 5.0 L (15-30) mg/dL Urine Opiates Screen (Not Detect) Urine Fentanyl Screen (Not Detect) Acetaminophen < 1 (<30) mcg/mL Ur Barbiturates Screen (Not Detect) Ur Phencyclidine Scrn (Not Detect) Ur Amphetamines Screen (Not Detect) U Benzodiazepines Scrn (Not Detect) Urine Cocaine Screen (Not Detect) U Marijuana (THC) Screen (Not Detect) Ethyl Alcohol mg/dL COVID-19 (SIENNA) Positive A (Negative) COVID-19 Clin Com See Note 05/15/21 05/15/21 05/15/21 Range/Units 11:52 13:18 13:18 WBC (4.8-10.8) X10*3/uL RBC (4.20-5.50) X10*6/uL Hgb (12.0-16.0) g/dl Hct (37.0-47.0) % MCV (80.0-98.0) fL MCH (27.0-33.0) pg MCHC (31.0-35.0) g/dl RDW (11.0-16.0) % Plt Count (160-400) X10*3/uL MPV (9.4-12.3) fL Immature Gran % (Auto) (0.0-0.4) % Neut % (Auto) (45-73) % Lymph % (Auto) (20-40) % [place] % (Auto) (2-11) % Eos % (Auto) (0-4) % Baso % (Auto) (0-2) % Lymph # (Auto) (1.2-4.9) X10*3/uL [place] # (Auto) (0.1-1.2) X10*3/uL Eos # (Auto) (0.0-0.4) X10*3/uL Baso # (Auto) (0.0-0.2) X10*3/uL Abs Immat Gran (auto) (0.00-0.03) X10*3/uL Absolute Neuts (auto) (2.0-8.3) x10*3/uL Absolute Nucleated RBC (0.0-0.012) X10*3/uL Nucleated RBC % (auto) (0.0-0.2) /100WBC Sodium (135-145) mmol/L Potassium (3.3-5.1) mmol/L Chloride (96-108) mmol/L Carbon Dioxide (22-29) mmol/L Anion Gap (12-20) BUN (9-16) mg/dL Creatinine (0.5-1.4) mg/dL Estim Creat Clear Calc Estimated GFR Random Glucose (60-115) mg/dL Calcium (8.4-10.2) mg/dL Total Bilirubin (0.0-1.0) mg/dL Direct Bilirubin (0.0-0.5) mg/dL AST (5-31) U/L ALT (0-31) U/L Alkaline Phosphatase (39-117) U/L Total Protein (6.5-8.0) g/dL Albumin (3.5-5.0) g/dL Lipase (8-78) U/L Urine Color Urine Appearance Urine pH (5.0-8.0) Ur Specific [place] (1.005-1.025) Urine Protein (NEG-TRACE) MG/DL Urine Glucose (UA) (NEG) MG/DL Urine Ketones (NEG) MG/DL Urine Blood (NEG) Urine Nitrite (NEG) Ur Leukocyte Esterase (NEG) Urine RBC (0) /HPF Urine WBC (0-4) /HPF Ur Squamous Epith Cells /LPF Urine Bacteria /LPF Urine Test NEGATIVE (NEGATIVE) Salicylates (15-30) mg/dL Urine Opiates Screen Not Detected (Not Detect) Urine Fentanyl Screen Not Detected (Not Detect) Acetaminophen (<30) mcg/mL Ur Barbiturates Screen Not Detected (Not Detect) Ur Phencyclidine Scrn Not Detected (Not Detect) Ur Amphetamines Screen Not Detected (Not Detect) U Benzodiazepines Scrn Not Detected (Not Detect) Urine Cocaine Screen Not Detected (Not Detect) U Marijuana (THC) Screen POSITIVE H (Not Detect) Ethyl Alcohol < 10 mg/dL COVID-19 (SIENNA) (Negative) COVID-19 Clin Com 05/15/21 Range/Units 13:18 WBC (4.8-10.8) X10*3/uL RBC (4.20-5.50) X10*6/uL Hgb (12.0-16.0) g/dl Hct (37.0-47.0) % MCV (80.0-98.0) fL MCH (27.0-33.0) pg MCHC (31.0-35.0) g/dl RDW (11.0-16.0) % Plt Count (160-400) X10*3/uL MPV (9.4-12.3) fL Immature Gran % (Auto) (0.0-0.4) % Neut % (Auto) (45-73) % Lymph % (Auto) (20-40) % [place] % (Auto) (2-11) % Eos % (Auto) (0-4) % Baso % (Auto) (0-2) % Lymph # (Auto) (1.2-4.9) X10*3/uL [place] # (Auto) (0.1-1.2) X10*3/uL Eos # (Auto) (0.0-0.4) X10*3/uL Baso # (Auto) (0.0-0.2) X10*3/uL Abs Immat Gran (auto) (0.00-0.03) X10*3/uL Absolute Neuts (auto) (2.0-8.3) x10*3/uL Absolute Nucleated RBC (0.0-0.012) X10*3/uL Nucleated RBC % (auto) (0.0-0.2) /100WBC Sodium (135-145) mmol/L Potassium (3.3-5.1) mmol/L Chloride (96-108) mmol/L Carbon Dioxide (22-29) mmol/L Anion Gap (12-20) BUN (9-16) mg/dL Creatinine (0.5-1.4) mg/dL Estim Creat Clear Calc Estimated GFR Random Glucose (60-115) mg/dL Calcium (8.4-10.2) mg/dL Total Bilirubin (0.0-1.0) mg/dL Direct Bilirubin (0.0-0.5) mg/dL AST (5-31) U/L ALT (0-31) U/L Alkaline Phosphatase (39-117) U/L Total Protein (6.5-8.0) g/dL Albumin (3.5-5.0) g/dL Lipase (8-78) U/L Urine Color STRAW Urine Appearance CLEAR Urine pH 6.5 (5.0-8.0) Ur Specific [place] <= 1.005 (1.005-1.025) Urine Protein NEG (NEG-TRACE) MG/DL Urine Glucose (UA) NEG (NEG) MG/DL Urine Ketones 5 (NEG) MG/DL Urine Blood NEG (NEG) Urine Nitrite NEG (NEG) Ur Leukocyte Esterase 1+ H (NEG) Urine RBC 0 (0) /HPF Urine WBC 1-4 (0-4) /HPF Ur Squamous Epith Cells 2+ /LPF Urine Bacteria 2+ /LPF Urine Test (NEGATIVE) Salicylates (15-30) mg/dL Urine Opiates Screen (Not Detect) Urine Fentanyl Screen (Not Detect) Acetaminophen (<30) mcg/mL Ur Barbiturates Screen (Not Detect) Ur Phencyclidine Scrn (Not Detect) Ur Amphetamines Screen (Not Detect) U Benzodiazepines Scrn (Not Detect) Urine Cocaine Screen (Not Detect) U Marijuana (THC) Screen (Not Detect) Ethyl Alcohol mg/dL COVID-19 (SIENNA) (Negative) COVID-19 Clin Com Imaging Data Chest x-ray: Attestation: I personally reviewed and interpreted this imaging study as follows: My impression: XR chest is clear Critical Care Time Critical Care Time Critical Care Time: Yes Total Critical Care Time: 40 Attestation: Patient hypertensive on arrival tachycardic did improve with fluids patient has improved heart rate as well as blood pressure patient was medically cleared patient is also suicidal and acutely psychotic Discharge Plan Discharge Clinical Impression: Bipolar disorder, Acute psychosis, COVID-19, Acute hypotension Patient Disposition: Still a Patient Transfer Details: Patient will be signed out to Dr. Kumar pending definitive disposition and crisis evaluation. Prescriptions: No Action prazosin 1 mg Capsule 2 mg PO BEDTIME 30 Days Qty: 60 RF: 0 bupropion HCl 150 mg Tablet Extended Release 24 Hr 150 mg PO DAILY 30 Days Qty: 30 RF: 0 trazodone 100 mg Tablet 100 mg PO BEDTIME 30 Days Qty: 30 RF: 0 divalproex [Depakote ER] 500 mg tablet extended release 24 hr 1,500 mg PO DAILY 30 Days Qty: 90 RF: 0
--- NOTE | 2021-05-15 09:26 | PC.NURSE ---
Pt to xray via wheelchair
[2021-05-15 09:38] VITALS: BP 103/63; PULSE 105
[2021-05-15 10:15] LABS: COVID-19 Test Positive (Negative)
[2021-05-15 11:54] VITALS: BP 123/57; PULSE 84; RESP 16; O2SAT 99
[2021-05-15 12:01] LABS: Basophils Percent Auto 0.4 % (0-2); Eosinophils Percent Auto 0.2 % (0-4); Hematocrit 42.2 % (37.0-47.0); Hemoglobin 14.6 g/dl (12.0-16.0); Imm Gran Abs Auto 0.01 X10*3/uL (0.00-0.03); Imm Gran Pct Auto 0.2 % (0.0-0.4); Lymphocytes Absolute Auto 2.3 X10*3/uL (1.2-4.9); Lymphocytes Percent Auto 42.3 % (20-40); MANUAL DIFF FLAG NO; Mean Corpuscular HGB Conc 34.6 g/dl (31.0-35.0); Mean Corpuscular Hemoglobin 30.5 pg (27.0-33.0); Mean Corpuscular Volume 88.1 fL (80.0-98.0); Mean Platelet Volume 10.6 fL (9.4-12.3); Monocytes Absolute Auto 0.6 X10*3/uL (0.1-1.2); Monocytes Percent Auto 9.9 % (2-11); Neutrophils Absolute Auto 2.6 x10*3/uL (2.0-8.3); Platelet Count 226 X10*3/uL (160-400); Red Blood Count 4.79 X10*6/uL (4.20-5.50); Red Cell Distribution Width 13.1 % (11.0-16.0); White Blood Count 5.5 X10*3/uL (4.8-10.8)
[2021-05-15] MEDS: 0.9 % Sodium Chloride 500 ML 999 ML IV (12:03)
[2021-05-15 12:16] LABS: Ethanol < 10 mg/dL
[2021-05-15 12:21] LABS: Acetaminophen LAB < 1 mcg/mL (<30); Alanine Aminotransferase 37 U/L (0-31); Albumin Level 4.4 g/dL (3.5-5.0); Alkaline Phosphatase 73 U/L (39-117); Anion Gap 13 (12-20); Aspartate Amino Transferase 41 U/L (5-31); Bilirubin Direct 0.2 mg/dL (0.0-0.5); Bilirubin Total 0.4 mg/dL (0.0-1.0); Blood Urea Nitrogen 5 mg/dL (9-16); Carbon Dioxide 22 mmol/L (22-29); Chloride 107 mmol/L (96-108); Creatinine Clr Calc Pharmacy 111.5; Estimated Glomerular Filt Rate > 60; Glucose Random 100 mg/dL (60-115); Lipase 23 U/L (8-78); Potassium 4.1 mmol/L (3.3-5.1); Salicylate < 5.0 mg/dL (15-30); Sodium 138 mmol/L (135-145); Total Protein 7.6 g/dL (6.5-8.0)
[2021-05-15 12:38] VITALS: BP 101/68; PULSE 81
[2021-05-15 13:54] LABS: UPreg QC Valid YES; Urine Pregnancy NEGATIVE (NEGATIVE)
[2021-05-15 14:05] LABS: Appearance Urine CLEAR; Color Urine STRAW; Glucose Urine UA NEG (NEG); Leukocyte Esterase Urine 1+ (NEG); Nitrite Urine NEG (NEG); PH 6.5 (5.0-8.0); Specific Gravity - Urine <= 1.005 (1.005-1.025); UACC Culture Trigger YES; Urine Blood NEG (NEG); Urine Ketones 5 MG/DL (NEG); Urine Protein NEG (NEG-TRACE)
[2021-05-15 14:12] LABS: Amphetamine Screen Urine Not Detected (Not Detect); Barbiturates, Urine Not Detected (Not Detect); Benzodiazepines Screen Urine Not Detected (Not Detect); Cannabinoid Screen Urine POSITIVE (Not Detect); Cocaine Screen Urine Not Detected (Not Detect); Fentanyl, urine Not Detected (Not Detect); Opiate Screen Urine Not Detected (Not Detect); Phencyclidine Screen Urine Not Detected (Not Detect)
[2021-05-15 14:14] LABS: Bacteria Urine 2+ /LPF; RBC Urine 0 /HPF (0); Squamous Epithelial Cell Urine 2+ /LPF
[2021-05-15 21:05] LABS: Valproate < 2.0 mcg/mL (50.0-100.0)
--- NOTE | 2021-07-11 09:44 | MHC.CARE ---
CARE Team analytics intern did follow-up call with pt. Pt. stated that she is going to call [facility] after our call to get onto their wait list. The pt. also stated that she is in contact with her therapist and will continue to use her resources outside of the hospital.
== END 2021-05-15 21:18 | disposition home or self-care (01) ==
PROVIDERS: Emergency Medicine Emergency Medical Services; Emergency Provider Student in an Organized Health Care Education/Training Program
DX: U07.1 COVID-19 (principal); F31.9 Bipolar disorder, unspecified; F23 Brief psychotic disorder; I95.9 Hypotension, unspecified; R00.0 Tachycardia, unspecified; Z91.14 Patient's other noncompliance with medication regimen
CPT/HCPCS: 36415; 71045; 80048; 80076; 80143; 80164; 80179; 80307; 81001; 81025; 82077; 83690; 85025; 87040; 87086; 87635; 99285; 99291

== ENCOUNTER 2021-05-27 15:20 | Inpatient (IN) | payer OTHER, MEDICAID, SELFPAY ==
[2021-05-27 15:51] VITALS: BP 98/61; PULSE 78; RESP 18; TEMP 36.8; O2SAT 98; BMI 24.7
--- NOTE | 2021-05-27 17:55 | ED_ITS ---
HPI - Psych General Chief Complaint: Psychiatric Symptoms Stated Complaint: crisis Time Seen by Provider: 05/27/21 16:05 Source: patient Mode of arrival: ambulatory Limitations: no limitations History of Present Illness MD complaint: suicidal ideation and feels depressed Onset (ago): day(s) Duration: getting worse History of same: Yes Relieving factors: none Exacerbating factors: none Context: not taking psychiatric medications and significant life stressor Associated psychiatric symptoms: depression and suicidal ideation Associated symptoms: denies other symptoms Treatments prior to arrival: none If self harm: admits thoughts of self harm Related Data Home Medications Medication Instructions Recorded Confirmed divalproex 250 mg tablet,delayed 250 mg PO BEDTIME 05/15/21 05/27/21 release Previous Rx's Medication Instructions Recorded bupropion HCl 150 mg 24 hr tablet, 150 mg PO DAILY 30 Days #30 tab 02/04/21 extended release prazosin 1 mg capsule 2 mg PO BEDTIME 30 Days #60 cap 02/04/21 trazodone 100 mg tablet 100 mg PO BEDTIME 30 Days #30 tab 02/04/21 divalproex 500 mg tablet,extended 1,500 mg PO DAILY 30 Days #90 tab 02/05/21 release 24 hr (Depakote ER) Allergies Allergy/AdvReac Type Severity Reaction Status Date / Time insect venom [MOSQUITO] Allergy Unknown UNKNOWN Verified 08/19/20 20:48 paliperidone [From INVEGA] Allergy Unknown DYSTONIC Verified 08/19/20 20:48 REACTION haloperidol [HALOPERIDOL] AdvReac Intermediate Dystonic Verified 08/19/20 20:48 reaction Review of Systems Review of Systems: Constitutional : No Fever, No Chills ENT/Mouth : No Ear Pain, No Nasal Congestion, No sore throat Eyes: No Eye Pain, No Swelling, No Redness Cardiovascular : No Chest Pain, No SOB Respiratory : No Cough, No Sputum, No Dyspnea Gastrointestinal : No Nausea, No Vomiting, No Diarrhea, No Hematochezia, No Melena Genitourinary : No Dysuria, No Urinary Frequency, No Hematuria Musculoskeletal : No Myalgias Skin : No Skin Lesions, No rash Neuro : No Weakness, No Numbness, No Paresthesias, No Dizziness, No Headache Psych : positive Anxiety, positive Depression, positive SI no HI Heme/Lymph: No Lymphadenopathy Endocrine : No Polyuria, No Polydipsia All other systems reviewed and are negative [facility] Past Medical History Medical History Anxiety Bipolar 1 disorder Bipolar 1 disorder, depressed, full remission Depression PTSD (post-traumatic stress disorder) PTSD (post-traumatic stress disorder) Social History Social History Household Members: Family Household Members Other:: Mom, 2 brothers, 1 sister. Housing: Apartment Do you presently have visiting nurse or other home services: No Alcohol intake: former Patient Tobacco Use Status: Current everyday Tobacco user Tobacco use type: Cigarette Cigarettes Per Day: 3 Years Smoked: 5 years e-Cigarette/Vaping Use: Never Used Second Hand Smoke Exposure: Yes Substance Use Type: Marijuana Advance Directives: No Advance Directives Information Provided: No service: No Sexual orientation: Lesbian/Garcia/Homosexual Physical Exam Vital Signs: Vital Signs: Last Vital Signs Temp 98.2 F 05/27/21 15:51 Pulse 78 05/27/21 15:51 Resp 18 05/27/21 15:51 BP 98/61 05/27/21 15:51 Pulse Ox 98 05/27/21 15:51 BMI result Body Mass Index 24.7 Appearance: Alert. Oriented X3. No acute distress. Eyes: Pupils equal, round and reactive to light. ENT: Pharynx normal. Neck: Normal inspection. Neck supple. CVS: Normal heart rate and rhythm. Pulses normal. Respiratory: No respiratory distress. Breath sounds normal. Abdomen: Soft and nontender. Skin: Skin warm and dry. Normal skin color. Normal skin turgor. Extremities: No lower extremity edema. No calf ttp Neuro: Oriented X 3. No motor deficit. No sensory deficit. CN 2-12 intact Psych: withdrawn but calm and cooperative, states she is depressed and not taking her depakote Course Course Course Narrative: Physician observation started at 738pm. Patient placed in physician observation because the patient needed more time for BHN to assess the need for psych admission. At the time observation was started the patient's vitals were stable, patient is alert and oriented. Neuro: nonfocal, CV RRR, Lungs clear MDM - Psych MDM Narrative Medical decision making narrative: 21 yo female with hx of bipolar disorder and PTSD here with depression and SI - no plan reports life stressors at this time labs, BHN consult ordered. Dispo per their results Lab Data Labs: Lab Results 05/27/21 Range/Units 18:10 COVID-19 ([facility]) Negative (Negative) COVID-19 Clin Com See Note Discharge Plan Discharge Clinical Impression: Depression Patient Disposition: Still a Patient Prescriptions: No Action prazosin 1 mg Capsule 2 mg PO BEDTIME 30 Days Qty: 60 RF: 0 bupropion HCl 150 mg Tablet Extended Release 24 Hr 150 mg PO DAILY 30 Days Qty: 30 RF: 0 trazodone 100 mg Tablet 100 mg PO BEDTIME 30 Days Qty: 30 RF: 0 divalproex [Depakote ER] 500 mg tablet extended release 24 hr 1,500 mg PO DAILY 30 Days Qty: 90 RF: 0 divalproex 250 mg Tablet,Delayed Release (Dr/Ec) 250 mg PO BEDTIME RF: 0
[2021-05-27 18:35] LABS: COVID-19 Test Negative (Negative)
--- NOTE | 2021-05-27 18:55 | PC.NURSE ---
attempted to complete med rec client is now asleep, stated during triage she had not taken for days
[2021-05-27 20:35] LABS: MANUAL DIFF FLAG NO
[2021-05-27 20:43] LABS: Basophils Percent Auto 0.3 % (0-2); Eosinophils Percent Auto 0.5 % (0-4); Hematocrit 41.8 % (37.0-47.0); Hemoglobin 14.4 g/dl (12.0-16.0); Imm Gran Abs Auto 0.02 X10*3/uL (0.00-0.03); Imm Gran Pct Auto 0.3 % (0.0-0.4); Lymphocytes Absolute Auto 2.2 X10*3/uL (1.2-4.9); Lymphocytes Percent Auto 35.9 % (20-40); Mean Corpuscular HGB Conc 34.4 g/dl (31.0-35.0); Mean Corpuscular Hemoglobin 30.6 pg (27.0-33.0); Mean Corpuscular Volume 88.7 fL (80.0-98.0); Mean Platelet Volume 10.5 fL (9.4-12.3); Monocytes Absolute Auto 0.4 X10*3/uL (0.1-1.2); Neutrophils Absolute Auto 3.5 x10*3/uL (2.0-8.3); Platelet Count 280 X10*3/uL (160-400); Red Blood Count 4.71 X10*6/uL (4.20-5.50); Red Cell Distribution Width 12.8 % (11.0-16.0); White Blood Count 6.2 X10*3/uL (4.8-10.8)
[2021-05-27 20:54] LABS: Alanine Aminotransferase 23 U/L (0-31); Alkaline Phosphatase 74 U/L (39-117); Anion Gap 14 (12-20); Aspartate Amino Transferase 34 U/L (5-31); Bilirubin Direct 0.3 mg/dL (0.0-0.5); Bilirubin Total 0.6 mg/dL (0.0-1.0); Blood Urea Nitrogen 4 mg/dL (9-16); Carbon Dioxide 23 mmol/L (22-29); Chloride 108 mmol/L (96-108); Creatinine Clr Calc Pharmacy 117.9; Estimated Glomerular Filt Rate > 60; Glucose Random 97 mg/dL (60-115); Potassium 4.2 mmol/L (3.3-5.1); Sodium 141 mmol/L (135-145); Total Protein 7.3 g/dL (6.5-8.0)
[2021-05-27 21:03] LABS: Valproate < 2.0 mcg/mL (50.0-100.0)
[2021-05-27 22:01] LABS: UPreg QC Valid YES; Urine Pregnancy NEGATIVE (NEGATIVE)
[2021-05-27 22:13] LABS: Amphetamine Screen Urine Not Detected (Not Detect); Barbiturates, Urine Not Detected (Not Detect); Benzodiazepines Screen Urine Not Detected (Not Detect); Cannabinoid Screen Urine POSITIVE (Not Detect); Cocaine Screen Urine Not Detected (Not Detect); Fentanyl, urine Not Detected (Not Detect); Opiate Screen Urine Not Detected (Not Detect); Phencyclidine Screen Urine Not Detected (Not Detect)
[2021-05-28 02:47] VITALS: BP 98/50; PULSE 75; RESP 17; TEMP 36.6; O2SAT 97
--- NOTE | 2021-05-28 06:39 | PC.NURSE ---
Patient slept through the night, no distress observed/reported, behavior appropriate, med rec completed/jul updated, VSS, BHN referral completed/confirmed, pending BHN evaluation in the morning, will continue to monitor.
--- NOTE | 2021-05-28 07:19 | PC.NURSE ---
patient appears to remain asleep at present respirations are even and unlabored, patient appears in no distress
[2021-05-28] MEDS: Ondansetron ODT 4 MG TAB.RAPDIS TRANSLINGU (09:30)
--- NOTE | 2021-05-28 09:56 | PC.NURSE ---
upon bringing patient august krause this am client reported to t/w she had not taken depakote and other meds for two months. updated med rec in chart.
[2021-05-28 17:29] VITALS: BP 88/50; PULSE 79; TEMP 36.8; O2SAT 98
--- NOTE | 2021-05-28 18:08 | PC.NURSE ---
patient report face feeling fuzzy. encouraged patient to increase fluids dt low bp
--- NOTE | 2021-05-28 21:59 | PC.NURSE ---
pharmacy will bring the depakote not avalable in pyxis.
[2021-05-28] MEDS: Divalproex Sodium ER 250 MG TAB.ER.24H PO (22:15)
[2021-05-29] VITALS (7 sets, daily range): BP systolic 89–107; BP diastolic 54–67; PULSE 77–106; RESP 16; TEMP 36.3–36.8; O2SAT 96–98
[2021-05-29] MEDS: traZODone HCL 100 MG TABLET PO ×2 (01:24→22:58)
[2021-05-29] MEDS: Prazosin HCL 1 MG CAPSULE 2 MG PO ×2 (01:24→22:58)
--- NOTE | 2021-05-29 04:09 | PC.NURSE ---
pt given headphones to listen to music, it is one of the pt relaxation skills she has learned.
--- NOTE | 2021-05-29 08:30 | PC.NURSE ---
pt ate 50% of breakfast.
[2021-05-29] MEDS: buPROPion HCl XL 150 MG TAB.ER.24H PO (11:48)
--- NOTE | 2021-05-29 14:05 | PC.NURSE ---
pt states that she will eat the fries on her lunch tray, fluids encouraged. pt is resting.
[2021-05-29 15:52] LABS: COVID-19 Test Negative (Negative)
--- NOTE | 2021-05-29 16:56 | PC.NURSE ---
Pt alert and oriented x4, calm and cooperative. Pt pleasant to staff at this time. Denies pain. Ambulating and steady on her feet. Report given to Mirian. Left in wheelchair without issues.
--- NOTE | 2021-05-29 20:43 | PC.ADMIT ---
Nursing admission note: 21 year old female DX: BiPolar Disorder Unspecified, PTSD. Referred for admission by CARE team. Signed Conditional Voluntary for admission. Patient self presented to [facility] with her mother for crisis evaluation. Per crisis report patient has been inconsistent with medications for several months. Per evaluation patient has not been taking medication VPA is 2.0. Patient A+O x4, engages easily. Hyperverbal, expansive with pressure of speech. Tangential with loose associations. Calm and cooperative with admission process. Reports difficulty managing anger. Easily triggered by people around her. Reports history of kicking or punching things when angered. Denies SI/HI at this time. No overt psychosis or expressed delusions. Reports difficulty falling asleep. Reports decreased appetite because my taste buds are off, its hard to eat when everything tastes like ass . Patient vomited shortly after arrival to unit. Reports daily use of cannabis, tox screen + cannabis. COVID negative. No acute medical problems. Allergies include insect venom, Haldol, Invega.Patient oriented to unit, placed on routine safety checks. See nursing assessment/crisis evaluation for complete details.
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
[2021-05-29] MEDS: Divalproex Sodium ER 250 MG TAB.ER.24H PO (22:58)
[2021-05-29] MEDS: Divalproex Sodium ER 500 MG TAB.ER.24H 1500 MG PO (22:58)
[2021-05-30] MEDS: buPROPion HCl XL 150 MG TAB.ER.24H PO (10:09)
[2021-05-30 10:19] VITALS: BP 154/58; PULSE 100; TEMP 36.6
[2021-05-30 12:34] LABS: COVID-19 Test Negative (Negative)
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
[2021-05-30 20:05] VITALS: BP 130/60; PULSE 108; TEMP 36.4
[2021-05-30] MEDS: Divalproex Sodium ER 250 MG TAB.ER.24H PO (22:36)
[2021-05-30] MEDS: Divalproex Sodium ER 500 MG TAB.ER.24H 1500 MG PO (22:37)
[2021-05-30] MEDS: traZODone HCL 100 MG TABLET PO (22:37)
[2021-05-30] MEDS: Prazosin HCL 1 MG CAPSULE 2 MG PO (22:38)
[2021-05-31 06:00] VITALS: BP 99/59; PULSE 101; RESP 16; TEMP 36.3; O2SAT 98
[2021-05-31] MEDS: ARIPiprazole 5 MG TABLET PO (09:38)
[2021-05-31] MEDS: buPROPion HCl XL 150 MG TAB.ER.24H PO (09:38)
[2021-05-31 22:50] VITALS: BP 115/54; PULSE 106; TEMP 36.3
[2021-05-31] MEDS: Divalproex Sodium ER 500 MG TAB.ER.24H 1500 MG PO (22:58)
[2021-05-31] MEDS: Divalproex Sodium ER 250 MG TAB.ER.24H PO (22:58)
[2021-05-31] MEDS: Prazosin HCL 1 MG CAPSULE 2 MG PO (22:59)
[2021-05-31] MEDS: traZODone HCL 100 MG TABLET PO (22:59)
[2021-06-01] MEDS: hydrOXYzine HCL 25 MG TABLET PO (01:35)
[2021-06-01 06:00] VITALS: BP 85/48; PULSE 92; RESP 18; TEMP 36.2; O2SAT 95
[2021-06-01 08:29] LABS: Valproate 129.2 mcg/mL (50.0-100.0)
[2021-06-01] MEDS: ARIPiprazole 5 MG TABLET PO (08:42)
[2021-06-01] MEDS: buPROPion HCl XL 150 MG TAB.ER.24H PO (08:42)
[2021-06-01 18:40] VITALS: BP 119/71; PULSE 110; RESP 20; TEMP 36.5; O2SAT 100
--- NOTE | 2021-06-01 18:42 | HO.PSYCHPN ---
Subjective Subjective Date of Service: 06/01/21 Reason For Visit: SI Subjective Notes: Conditional Voluntary Interim History: Barbara complained of not being able to wake up, but then moments later was in the hallway listening to music and dancing. There has been no behavoiral dyscontrol. 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 Pt is in casual attire, wearing hoodie, headphones on, short hair, normal body habitus, not malodorous. Good eye contact, mostly attentive. No Tics or Tremors. No abnormal involuntary movements. Calm, cooperative, engaged, tearful at tomes. Non-pressured speech, however talkative, spontaneous with regular rate and rhythm, normal volume and prosody. No prolonged speech latency or dysarthria. Mood is ?depressed,? affect is tearful at times but appropriate. Denies SI/SIB/HI upon inquiry. Denies A/VH or delusional thought content. Thoughts are circumstantial, grandiose at times. No known cognitive or memory impairment. Insight/ Judgment limited but adequate. Diagnostics Vital Signs (24Hr): Vital Signs - 24 hr 05/31/21 22:50 06/01/21 06:00 06/01/21 18:40 Temperature 97.4 F 97.1 F 97.7 F Pulse Rate 106 H 92 110 H Respiratory Rate 18 20 Blood Pressure 115/54 L 85/48 L 119/71 Pulse Oximetry 95 100 BMI result Body Mass Index 24.7 Labs Results: 05/27/21 20:29 05/27/21 20:29 Labs: Laboratory Results - last 48 hr 06/01/21 07:33 Valproic Acid 129.2 H* Medications Medications Current Medications Acetaminophen (Acetaminophen 325 Mg Tablet) 650 mg PO Q6H PRN PRN Reason: Headache/Pain Mild Scale (1-3) Al Hydroxide/Mg Hydroxide (Magnesium Hydrox/Alum Hydrox 30 Ml Oral.Susp) 30 ml PO Q6H PRN PRN Reason: Heartburn/Nausea Aripiprazole (Aripiprazole 5 Mg Tablet) 5 mg PO DAILY GAVIOTA Last Admin: 06/01/21 08:42 Dose: 5 mg Documented by: Bupropion HCl (Bupropion Hcl Xl 150 Mg Tab.Er.24h) 150 mg PO DAILY G[facility]IOTA Last Admin: 06/01/21 08:42 Dose: 150 mg Documented by: Divalproex Sodium (Divalproex Sodium Er 500 Mg Tab.Er.24h) 1,500 mg PO BEDTIME G[facility]IOTA Last Admin: 05/31/21 22:58 Dose: 1,500 mg Documented by: Hydroxyzine HCl (Hydroxyzine Hcl 25 Mg Tablet) 25 mg PO BEDTIME PRN PRN Reason: Anxiety Last Admin: 06/01/21 01:35 Dose: 25 mg Documented by: Magnesium Hydroxide (Milk Of Magnesia 30 Ml Oral.Susp) 30 ml PO DAILY PRN PRN Reason: Constipation Prazosin HCl (Prazosin Hcl 1 Mg Capsule) 2 mg PO BEDTIME GAVIOTA; Protocol Last Admin: 05/31/21 22:59 Dose: 2 mg Documented by: Trazodone HCl (Trazodone Hcl 100 Mg Tablet) 100 mg PO BEDTIME G[facility]IOTA Last Admin: 05/31/21 22:59 Dose: 100 mg Documented by: Trazodone HCl (Trazodone Hcl 50 Mg Tablet) 50 mg PO BEDTIME PRN PRN Reason: Insomnia Allergies Allergies Allergy/AdvReac Type Severity Reaction Status Date / Time insect venom [MOSQUITO] Allergy Unknown UNKNOWN Verified 08/19/20 20:48 paliperidone [From INVEGA] Allergy Unknown DYSTONIC Verified 08/19/20 20:48 REACTION haloperidol [HALOPERIDOL] AdvReac Intermediate Dystonic Verified 08/19/20 20:48 reaction Assessment & Plan Assessment & Plan (1) PTSD (post-traumatic stress disorder): Status: Chronic Code(s): F43.10 - Post-traumatic stress disorder, unspecified (2) Bipolar I disorder with depression: Status: Acute Code(s): F31.9 - Bipolar disorder, unspecified Assessment and Plan: Barbara is a 21 y.o. Female who carries a dx of bipolar I DO, currently depressed, and PTSD, however sx may be more a function of Bipolar II DO. Pt is currently endorsing sx of depression, including sad mood, poor self esteem, hypersomnia, and isolative behaviors. She has been med non-adherent. Pt?s mother is concerned with pt?s emotional dysregulation, unpredictable behavior, and wt loss. She has a hx of manic/ hypomanic episodes but denies hx of hyposomnia. Utox positive for cannabis, no alcohol abuse. Plan: Pt has been re-started on her outpt medication regimen in the ED and reports positive benefit on depakote to prevent manic episodes and wellbutrin to treat depression. She is not currently interested in medication adjustment, however may benefit from increase in wellbutrin, as she has persistent low energy and depressed mood even when she is med adherent. Pt is goal oriented and insightful at times, however immature and grandiose at times. She would benefit increased daytime structure and continued therapy. Monitor response to medications. Monitor for safety in the milieu. Discharge on stabilization. Patient seen. Chart reviewed. Discussed with team. Obtain collateral contact info?as needed 06/01/21 Lower VPA No other changes I spent minutes with the patient and/or on the patient floor today, greater than?50% of which was spent counseling/coordinating care. Patient educated on: medication risk/benefits Informed Consent: further education needed Reason for contiued inpatient stay Substantial Risk for: rapid decompensation
--- NOTE | 2021-06-01 18:49 | HO.PSYCHPN ---
Subjective Subjective Date of Service: 05/31/21 Reason For Visit: SI Subjective Notes: Conditional Voluntary Interim History: Barbara was tired and resting in bed. There was no behavoiral dyscontrol. 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 Pt is in casual attire, wearing hoodie, headphones on, short hair, normal body habitus, not malodorous. Good eye contact, mostly attentive. No Tics or Tremors. No abnormal involuntary movements. Calm, cooperative, engaged, tearful at tomes. Non-pressured speech, however talkative, spontaneous with regular rate and rhythm, normal volume and prosody. No prolonged speech latency or dysarthria. Mood is ?depressed,? affect is tearful at times but appropriate. Denies SI/SIB/HI upon inquiry. Denies A/VH or delusional thought content. Thoughts are circumstantial, grandiose at times. No known cognitive or memory impairment. Insight/ Judgment limited but adequate. Diagnostics Vital Signs (24Hr): Vital Signs - 24 hr 05/31/21 22:50 06/01/21 06:00 06/01/21 18:40 Temperature 97.4 F 97.1 F 97.7 F Pulse Rate 106 H 92 110 H Respiratory Rate 18 20 Blood Pressure 115/54 L 85/48 L 119/71 Pulse Oximetry 95 100 BMI result Body Mass Index 24.7 Labs Results: 05/27/21 20:29 05/27/21 20:29 Labs: Laboratory Results - last 48 hr 06/01/21 07:33 Valproic Acid 129.2 H* Medications Medications Current Medications Acetaminophen (Acetaminophen 325 Mg Tablet) 650 mg PO Q6H PRN PRN Reason: Headache/Pain Mild Scale (1-3) Al Hydroxide/Mg Hydroxide (Magnesium Hydrox/Alum Hydrox 30 Ml Oral.Susp) 30 ml PO Q6H PRN PRN Reason: Heartburn/Nausea Aripiprazole (Aripiprazole 5 Mg Tablet) 5 mg PO DAILY [facility] Last Admin: 06/01/21 08:42 Dose: 5 mg Documented by: Bupropion HCl (Bupropion Hcl Xl 150 Mg Tab.Er.24h) 150 mg PO DAILY G[facility]IOTA Last Admin: 06/01/21 08:42 Dose: 150 mg Documented by: Divalproex Sodium (Divalproex Sodium Er 500 Mg Tab.Er.24h) 1,500 mg PO BEDTIME G[facility]IOTA Last Admin: 05/31/21 22:58 Dose: 1,500 mg Documented by: Hydroxyzine HCl (Hydroxyzine Hcl 25 Mg Tablet) 25 mg PO BEDTIME PRN PRN Reason: Anxiety Last Admin: 06/01/21 01:35 Dose: 25 mg Documented by: Magnesium Hydroxide (Milk Of Magnesia 30 Ml Oral.Susp) 30 ml PO DAILY PRN PRN Reason: Constipation Prazosin HCl (Prazosin Hcl 1 Mg Capsule) 2 mg PO BEDTIME G[facility]IOTA; Protocol Last Admin: 05/31/21 22:59 Dose: 2 mg Documented by: Trazodone HCl (Trazodone Hcl 100 Mg Tablet) 100 mg PO BEDTIME G[facility] Last Admin: 05/31/21 22:59 Dose: 100 mg Documented by: Trazodone HCl (Trazodone Hcl 50 Mg Tablet) 50 mg PO BEDTIME PRN PRN Reason: Insomnia Allergies Allergies Allergy/AdvReac Type Severity Reaction Status Date / Time insect venom [MOSQUITO] Allergy Unknown UNKNOWN Verified 08/19/20 20:48 paliperidone [From INVEGA] Allergy Unknown DYSTONIC Verified 08/19/20 20:48 REACTION haloperidol [HALOPERIDOL] AdvReac Intermediate Dystonic Verified 08/19/20 20:48 reaction Assessment & Plan Assessment & Plan (1) PTSD (post-traumatic stress disorder): Status: Chronic Code(s): F43.10 - Post-traumatic stress disorder, unspecified (2) Bipolar I disorder with depression: Status: Acute Code(s): F31.9 - Bipolar disorder, unspecified Assessment and Plan: Barbara is a 21 y.o. Female who carries a dx of bipolar I DO, currently depressed, and PTSD, however sx may be more a function of Bipolar II DO. Pt is currently endorsing sx of depression, including sad mood, poor self esteem, hypersomnia, and isolative behaviors. She has been med non-adherent. Pt?s mother is concerned with pt?s emotional dysregulation, unpredictable behavior, and wt loss. She has a hx of manic/ hypomanic episodes but denies hx of hyposomnia. Utox positive for cannabis, no alcohol abuse. Plan: Pt has been re-started on her outpt medication regimen in the ED and reports positive benefit on depakote to prevent manic episodes and wellbutrin to treat depression. She is not currently interested in medication adjustment, however may benefit from increase in wellbutrin, as she has persistent low energy and depressed mood even when she is med adherent. Pt is goal oriented and insightful at times, however immature and grandiose at times. She would benefit increased daytime structure and continued therapy. Monitor response to medications. Monitor for safety in the milieu. Discharge on stabilization. Patient seen. Chart reviewed. Discussed with team. Obtain collateral contact info?as needed 05/31/21 No changes to treatment plan I spent minutes with the patient and/or on the patient floor today, greater than?50% of which was spent counseling/coordinating care. Reason for contiued inpatient stay Substantial Risk for: rapid decompensation
[2021-06-01] MEDS: traZODone HCL 100 MG TABLET PO (22:10)
[2021-06-01] MEDS: Divalproex Sodium ER 500 MG TAB.ER.24H 1500 MG PO (22:10)
[2021-06-01] MEDS: Prazosin HCL 1 MG CAPSULE 2 MG PO (22:10)
[2021-06-02 06:32] VITALS: BP 90/53; PULSE 87; RESP 16; TEMP 36.9; O2SAT 97
[2021-06-02] MEDS: buPROPion HCl XL 150 MG TAB.ER.24H PO (08:25)
[2021-06-02] MEDS: ARIPiprazole 5 MG TABLET PO (08:25)
--- NOTE | 2021-06-02 13:24 | P.PNPSI_ITS ---
Subjective Subjective Date of Service: 06/02/21 Reason For Visit: SI Subjective Notes: Conditional Voluntary Interim History: Pt reports prior to coming to unit, she was crying easily. She denies SI/HI. Some mood dysregulation. She reports overspending earlier in de cember. She continues to present with flight of ideas and tangential but no loose associations. She reports abilify helpful in that she can stay in topic more easily. Pt has been visible in the unit. No behavioral concerns. 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 Pt is in casual attire, wearing hoodie, short hair, normal body habitus, not malodorous. Good eye contact, mostly attentive. No Tics or Tremors. No abnormal involuntary movements. Calm, cooperative, engaged, tearful at tomes. Non-pressured speech, however talkative, spontaneous with regular rate and rhythm, normal volume and prosody. No prolonged speech latency or dysarthria. Mood is ?depressed,? affect is calm. Denies SI/SIB/HI upon inquiry. Currently denies A/VH or delusional thought content. Thoughts are tangential, grandiose at times. No known cognitive or memory impairment. Insight/ Judgment limited but adequate. Diagnostics Vital Signs (24Hr): Vital Signs - 24 hr 06/01/21 18:40 06/02/21 06:32 Temperature 97.7 F 98.5 F Pulse Rate 110 H 87 Respiratory Rate 20 16 Blood Pressure 119/71 90/53 L Pulse Oximetry 100 97 BMI result Body Mass Index 24.7 Labs Results: 05/27/21 20:29 05/27/21 20:29 Labs: Laboratory Results - last 48 hr 06/01/21 07:33 Valproic Acid 129.2 H* Medications Medications Current Medications Acetaminophen (Acetaminophen 325 Mg Tablet) 650 mg PO Q6H PRN PRN Reason: Headache/Pain Mild Scale (1-3) Al Hydroxide/Mg Hydroxide (Magnesium Hydrox/Alum Hydrox 30 Ml Oral.Susp) 30 ml PO Q6H PRN PRN Reason: Heartburn/Nausea Aripiprazole (Aripiprazole 5 Mg Tablet) 5 mg PO DAILY [facility] Last Admin: 06/02/21 08:25 Dose: 5 mg Documented by: Bupropion HCl (Bupropion Hcl Xl 150 Mg Tab.Er.24h) 150 mg PO DAILY [facility] Last Admin: 06/02/21 08:25 Dose: 150 mg Documented by: Divalproex Sodium (Divalproex Sodium Er 500 Mg Tab.Er.24h) 1,500 mg PO BEDTIME [facility] Last Admin: 06/01/21 22:10 Dose: 1,500 mg Documented by: Hydroxyzine HCl (Hydroxyzine Hcl 25 Mg Tablet) 25 mg PO BEDTIME PRN PRN Reason: Anxiety Last Admin: 06/01/21 01:35 Dose: 25 mg Documented by: Magnesium Hydroxide (Milk Of Magnesia 30 Ml Oral.Susp) 30 ml PO DAILY PRN PRN Reason: Constipation Prazosin HCl (Prazosin Hcl 1 Mg Capsule) 2 mg PO BEDTIME G[facility]; Protocol Last Admin: 06/01/21 22:10 Dose: 2 mg Documented by: Trazodone HCl (Trazodone Hcl 100 Mg Tablet) 100 mg PO BEDTIME [facility] Last Admin: 06/01/21 22:10 Dose: 100 mg Documented by: Trazodone HCl (Trazodone Hcl 50 Mg Tablet) 50 mg PO BEDTIME PRN PRN Reason: Insomnia Allergies Allergies Allergy/AdvReac Type Severity Reaction Status Date / Time insect venom [MOSQUITO] Allergy Unknown UNKNOWN Verified 08/19/20 20:48 paliperidone [From INVEGA] Allergy Unknown DYSTONIC Verified 08/19/20 20:48 REACTION haloperidol [HALOPERIDOL] AdvReac Intermediate Dystonic Verified 08/19/20 20:48 reaction Assessment & Plan Assessment & Plan (1) PTSD (post-traumatic stress disorder): Status: Chronic Code(s): F43.10 - Post-traumatic stress disorder, unspecified (2) Bipolar I disorder with depression: Status: Acute Code(s): F31.9 - Bipolar disorder, unspecified Assessment and Plan: Barbara is a 21 y.o. Female who carries a dx of bipolar I DO, currently depressed, and PTSD. Pt is currently endorsing sx of depression, including sad mood, poor self esteem, hypersomnia, and isolative behaviors. She has been med non- adherent. Pt?s mother is concerned with pt?s emotional dysregulation, unpredictable behavior, and wt loss. She has a hx of manic/ hypomanic episodes but denies hx of hyposomnia. Utox positive for cannabis, no alcohol abuse. Plan: Pt has been re-started on her outpt medication regimen in the ED and reports positive benefit on depakote to prevent manic episodes and wellbutrin to treat depression. She is not currently interested in medication adjustment, however may benefit from increase in wellbutrin, as she has persistent low energy and depressed mood even when she is med adherent. Pt is goal oriented and insightful at times, however immature and grandiose at times. She would benefit increased daytime structure and continued therapy. 06/01: Will obtain VPA level 06/01/21, started on . Discussed re-trialing Abilify, as pt reports I remember it was calming and she felt focused on it. May help with depression. Reviewed risks and benefits, will monitor for akathesia. 06/02: pt less hyperverbal but with some flight of ideas. it seems pt was dysphoric prior to coming to unit, does note that abilify helps her stay on one topic at a time. pcing espinoza, no SI/HI. sleeping through the night. Monitor response to medications. Monitor for safety in the milieu. Discharge on stabilization. Patient seen. Chart reviewed. Discussed with team. Obtain collateral contact info?as needed I spent minutes with the patient and/or on the patient floor today, greater than?50% of which was spent counseling/coordinating care. Reason for contiued inpatient stay Substantial Risk for: inability to function
[2021-06-02] MEDS: Divalproex Sodium ER 500 MG TAB.ER.24H 1500 MG PO (21:17)
[2021-06-02] MEDS: traZODone HCL 100 MG TABLET PO (21:17)
[2021-06-02] MEDS: Prazosin HCL 1 MG CAPSULE 2 MG PO (21:18)
[2021-06-02 21:30] VITALS: BP 102/56; PULSE 128; TEMP 35.8
[2021-06-03 06:43] VITALS: BP 95/54; PULSE 90; RESP 90; TEMP 36.4; O2SAT 99
[2021-06-03] MEDS: buPROPion HCl XL 150 MG TAB.ER.24H PO (09:10)
[2021-06-03] MEDS: ARIPiprazole 5 MG TABLET PO (09:10)
--- NOTE | 2021-06-03 10:12 | P.PNPSI_ITS ---
Subjective Subjective Date of Service: 06/03/21 Reason For Visit: SI Interim History: Pt presents as hyperverbal, less pressured, less tangential, no loose associations. Pt reports she woke up at 1am, got prn medications. Pt less dysphoric, pacing the espinoza, reports feeling restless, needing to pace, denies that it got worse with abilify. She denies SI/HI. 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 Pt is in casual attire, wearing hoodie, short hair, normal body habitus, not malodorous. Good eye contact, mostly attentive. No Tics or Tremors. No abnormal involuntary movements. Calm, cooperative, engaged, tearful at tomes. Non-pressured speech, however talkative, spontaneous with regular rate and rhythm, normal volume and prosody. No prolonged speech latency or dysarthria. Mood is ?depressed,? affect is calm. Denies SI/SIB/HI upon inquiry. Currently denies A/VH or delusional thought content. Thoughts are tangential, grandiose at times. No known cognitive or memory impairment. Insight/ Judgment limited but adequate. Diagnostics Vital Signs (24Hr): Vital Signs - 24 hr 06/02/21 21:30 06/03/21 06:43 Temperature 96.4 F L 97.5 F Pulse Rate 128 H 90 Respiratory Rate 90 H Blood Pressure 102/56 L 95/54 L Pulse Oximetry 99 BMI result Body Mass Index 24.7 Labs Results: 05/27/21 20:29 05/27/21 20:29 Medications Medications Current Medications Acetaminophen (Acetaminophen 325 Mg Tablet) 650 mg PO Q6H PRN PRN Reason: Headache/Pain Mild Scale (1-3) Al Hydroxide/Mg Hydroxide (Magnesium Hydrox/Alum Hydrox 30 Ml Oral.Susp) 30 ml PO Q6H PRN PRN Reason: Heartburn/Nausea Aripiprazole (Aripiprazole 5 Mg Tablet) 5 mg PO DAILY [facility] Last Admin: 06/03/21 09:10 Dose: 5 mg Documented by: Bupropion HCl (Bupropion Hcl Xl 150 Mg Tab.Er.24h) 150 mg PO DAILY [facility] Last Admin: 06/03/21 09:10 Dose: 150 mg Documented by: Divalproex Sodium (Divalproex Sodium Er 500 Mg Tab.Er.24h) 1,500 mg PO BEDTIME [facility] Last Admin: 06/02/21 21:17 Dose: 1,500 mg Documented by: Hydroxyzine HCl (Hydroxyzine Hcl 25 Mg Tablet) 25 mg PO BEDTIME PRN PRN Reason: Anxiety Last Admin: 06/01/21 01:35 Dose: 25 mg Documented by: Magnesium Hydroxide (Milk Of Magnesia 30 Ml Oral.Susp) 30 ml PO DAILY PRN PRN Reason: Constipation Prazosin HCl (Prazosin Hcl 1 Mg Capsule) 2 mg PO BEDTIME G[facility]IOTA; Protocol Last Admin: 06/02/21 21:18 Dose: 2 mg Documented by: Trazodone HCl (Trazodone Hcl 100 Mg Tablet) 100 mg PO BEDTIME [facility] Last Admin: 06/02/21 21:17 Dose: 100 mg Documented by: Trazodone HCl (Trazodone Hcl 50 Mg Tablet) 50 mg PO BEDTIME PRN PRN Reason: Insomnia Allergies Allergies Allergy/AdvReac Type Severity Reaction Status Date / Time insect venom [MOSQUITO] Allergy Unknown UNKNOWN Verified 08/19/20 20:48 paliperidone [From INVEGA] Allergy Unknown DYSTONIC Verified 08/19/20 20:48 REACTION haloperidol [HALOPERIDOL] AdvReac Intermediate Dystonic Verified 08/19/20 20:48 reaction Assessment & Plan Assessment & Plan (1) PTSD (post-traumatic stress disorder): Status: Chronic Code(s): F43.10 - Post-traumatic stress disorder, unspecified (2) Bipolar I disorder with depression: Status: Acute Code(s): F31.9 - Bipolar disorder, unspecified Assessment and Plan: Barbara is a 21 y.o. Female who carries a dx of bipolar I DO, currently depressed, and PTSD. Pt is currently endorsing sx of depression, including sad mood, poor self esteem, hypersomnia, and isolative behaviors. She has been med non- adherent. Pt?s mother is concerned with pt?s emotional dysregulation, unpredictable behavior, and wt loss. She has a hx of manic/ hypomanic episodes but denies hx of hyposomnia. Utox positive for cannabis, no alcohol abuse. Plan: Pt has been re-started on her outpt medication regimen in the ED and reports positive benefit on depakote to prevent manic episodes and wellbutrin to treat depression. She is not currently interested in medication adjustment, however may benefit from increase in wellbutrin, as she has persistent low energy and depressed mood even when she is med adherent. Pt is goal oriented and insightful at times, however immature and grandiose at times. She would benefit increased daytime structure and continued therapy. 06/01: Will obtain VPA level 06/01/21, started on . Discussed re-trialing Abilify, as pt reports I remember it was calming and she felt focused on it. May help with depression. Reviewed risks and benefits, will monitor for akathesia. 06/02: pt less hyperverbal but with some flight of ideas. it seems pt was dysphoric prior to coming to unit, does note that abilify helps her stay on one topic at a time. pcing espinoza, no SI/HI. sleeping through the night. 06/03- add ativan. continue depakote, abilify, worried about wellbutrin worsening manic episodes or mixed episodes. but pt wants to continue wellbutrin. Monitor response to medications. Monitor for safety in the milieu. Discharge on stabilization. Patient seen. Chart reviewed. Discussed with team. Obtain collateral contact info?as needed I spent minutes with the patient and/or on the patient floor today, greater than?50% of which was spent counseling/coordinating care. Reason for contiued inpatient stay Substantial Risk for: inability to function
[2021-06-03] MEDS: LORazepam 1 MG TABLET PO ×2 (16:34→22:04)
[2021-06-03 18:00] VITALS: BP 111/57; PULSE 100; RESP 136
[2021-06-03] MEDS: bisacodyL 5 MG TABLET.DR PO (20:48)
[2021-06-03] MEDS: traZODone HCL 100 MG TABLET PO (20:48)
[2021-06-03] MEDS: Divalproex Sodium ER 500 MG TAB.ER.24H 1500 MG PO (20:48)
[2021-06-03] MEDS: Prazosin HCL 1 MG CAPSULE 2 MG PO (20:48)
--- NOTE | 2021-06-03 21:16 | PC.NURSE ---
PT reports constipation x a couple of days . PT feels the urge but unable to produce a BM. PT requests a stool softener other than MOM. call center nurse reached, Dulcolax 5mg ordered and given PO, effect pending.
[2021-06-04] MEDS: LORazepam 1 MG TABLET PO ×3 (03:04→17:17)
[2021-06-04 06:00] VITALS: PULSE 120; TEMP 36; O2SAT 97
[2021-06-04 08:59] LABS: Valproate 120.2 mcg/mL (50.0-100.0)
--- NOTE | 2021-06-04 09:03 | PC.NURSE ---
Critical lab value, high: Valproic Acid 120.19. Trending down from previous lab draw, PLUG [facility]OWER aware.
[2021-06-04] MEDS: ARIPiprazole 5 MG TABLET PO (09:49)
[2021-06-04] MEDS: buPROPion HCl XL 150 MG TAB.ER.24H PO (09:49)
[2021-06-04 10:14] LABS: Ammonia 20 umol/L (13-55)
--- NOTE | 2021-06-04 11:34 | P.PNPSI_ITS ---
Subjective Subjective Date of Service: 06/04/21 Reason For Visit: SI Subjective Notes: Conditional Voluntary Interim History: Pt reports she slept through the night. She reports ativan helping with anxiety. However, today, pt reports feeling tired, reports having nausea. No vomiting, no fever. No cough, no muscleaches. She is less talkative today. She denies symptoms of depression. She denies SI/HI. reports feeling as if there is a presence but not as much. 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 Pt is in casual attire, wearing hoodie, short hair, normal body habitus, not malodorous. Good eye contact, mostly attentive. No Tics or Tremors. No abnormal involuntary movements. Calm, cooperative, engaged, tearful at tomes. Non-pressured speech, however talkative, spontaneous with regular rate and rhythm, normal volume and prosody. No prolonged speech latency or dysarthria. Mood is ?depressed,? affect is calm. Denies SI/SIB/HI upon inquiry. Currently denies A/VH or delusional thought content. Thoughts are tangential, grandiose at times. No known cognitive or memory impairment. Insight/ Judgment limited but adequate. Diagnostics Vital Signs (24Hr): Vital Signs - 24 hr 06/03/21 18:00 06/04/21 06:00 Temperature 96.8 F Pulse Rate 100 120 H Respiratory Rate 136 H Blood Pressure 111/57 L Pulse Oximetry 97 BMI result Verdana 4 Body Mass Index Verdana 4 24.7 Verdana 4 Verdana 4 Labs Results: 05/27/21 20:29 05/27/21 20:29 Labs: Laboratory Results - last 48 hr 06/04/21 06/04/21 08:19 09:52 Ammonia 20 Valproic Acid 120.2 H* Medications Medications Current Medications Acetaminophen (Acetaminophen 325 Mg Tablet) 650 mg PO Q6H PRN PRN Reason: Headache/Pain Mild Scale (1-3) Al Hydroxide/Mg Hydroxide (Magnesium Hydrox/Alum Hydrox 30 Ml Oral.Susp) 30 ml PO Q6H PRN PRN Reason: Heartburn/Nausea Aripiprazole (Aripiprazole 10 Mg Tablet) 10 mg PO BEDTIME [facility] Bupropion HCl (Bupropion Hcl Xl 150 Mg Tab.Er.24h) 150 mg PO DAILY [facility] Last Admin: 06/04/21 09:49 Dose: 150 mg Documented by: Divalproex Sodium (Divalproex Sodium Er 500 Mg Tab.Er.24h) 1,000 mg PO BEDTIME [facility] Hydroxyzine HCl (Hydroxyzine Hcl 25 Mg Tablet) 25 mg PO BEDTIME PRN PRN Reason: Anxiety Last Admin: 06/01/21 01:35 Dose: 25 mg Documented by: Lorazepam (Lorazepam 1 Mg Tablet) 1 mg PO Q6H PRN PRN Reason: Anxiety Last Admin: 06/04/21 11:20 Dose: 1 mg Documented by: Magnesium Hydroxide (Milk Of Magnesia 30 Ml Oral.Susp) 30 ml PO DAILY PRN PRN Reason: Constipation Trazodone HCl (Trazodone Hcl 100 Mg Tablet) 100 mg PO BEDTIME [facility] Last Admin: 06/03/21 20:48 Dose: 100 mg Documented by: Trazodone HCl (Trazodone Hcl 50 Mg Tablet) 50 mg PO BEDTIME PRN PRN Reason: Insomnia Allergies Allergies Allergy/AdvReac Type Severity Reaction Status Date / Time insect venom Allergy Unknown UNKNOWN Verified 08/19/20 20:48 [MOSQUITO] paliperidone [From Allergy Unknown DYSTONIC Verified 08/19/20 20:48 INVEGA] REACTION haloperidol AdvReac Intermediate Dystonic Verified 08/19/20 20:48 [HALOPERIDOL] reaction Assessment & Plan Assessment & Plan (1) PTSD (post-traumatic stress disorder): Status: Chronic Code(s): F43.10 - Post-traumatic stress disorder, unspecified (2) Bipolar I disorder with depression: Status: Acute Code(s): F31.9 - Bipolar disorder, unspecified Plan Barbara is a 21 y.o. Female who carries a dx of bipolar I DO, currently depressed, and PTSD. Pt is currently endorsing sx of depression, including sad mood, poor self esteem, hypersomnia, and isolative behaviors. She has been med non- adherent. Pt?s mother is concerned with pt?s emotional dysregulation, unpredictable behavior, and wt loss. She has a hx of manic/ hypomanic episodes but denies hx of hyposomnia. Utox positive for cannabis, no alcohol abuse. Plan: Pt has been re-started on her outpt medication regimen in the ED and reports positive benefit on depakote to prevent manic episodes and wellbutrin to treat depression. She is not currently interested in medication adjustment, however may benefit from increase in wellbutrin, as she has persistent low energy and depressed mood even when she is med adherent. Pt is goal oriented and insightful at times, however immature and grandiose at times. She would benefit increased daytime structure and continued therapy. 06/01: Will obtain VPA level 06/01/21, started on . Discussed re-trialing Abilify, as pt reports I remember it was calming and she felt focused on it. May help with depression. Reviewed risks and benefits, will monitor for akathesia. 06/02: pt less hyperverbal but with some flight of ideas. it seems pt was dysphoric prior to coming to unit, does note that abilify helps her stay on one topic at a time. pcing espinoza, no SI/HI. sleeping through the night. 06/03- add ativan. continue depakote, abilify, worried about wellbutrin worsening manic episodes or mixed episodes. but pt wants to continue wellbutrin. Monitor response to medications. Monitor for safety in the milieu. Discharge on stabilization. Patient seen. Chart reviewed. Discussed with team. Obtain collateral contact info?as needed I spent minutes with the patient and/or on the patient floor today, greater than?50% of which was spent counseling/coordinating care. Reason for contiued inpatient stay Substantial Risk for: inability to function
[2021-06-04 18:00] VITALS: BP 94/58; PULSE 101; RESP 16; TEMP 36.8; O2SAT 98
[2021-06-04 18:22] LABS: Valproate 123.1 mcg/mL (50.0-100.0)
[2021-06-04 19:00] VITALS: BP 96/55; PULSE 99
[2021-06-04 19:05] VITALS: BP 92/54; PULSE 138
[2021-06-04 19:44] LABS: COVID-19 Test Negative (Negative)
[2021-06-04] MEDS: Divalproex Sodium ER 500 MG TAB.ER.24H 1000 MG PO (21:03)
[2021-06-04] MEDS: traZODone HCL 100 MG TABLET PO (21:03)
[2021-06-04] MEDS: bisacodyL 5 MG TABLET.DR 10 MG PO (21:15)
[2021-06-05] MEDS: LORazepam 1 MG TABLET PO ×3 (04:57→16:52)
[2021-06-05 05:03] VITALS: BP 108/63; PULSE 118; TEMP 36.4; O2SAT 98
[2021-06-05 06:35] VITALS: PULSE 88; TEMP 36.8; O2SAT 98
[2021-06-05] MEDS: buPROPion HCl XL 150 MG TAB.ER.24H PO (08:47)
--- NOTE | 2021-06-05 11:15 | P.PNPSI_ITS ---
Subjective Subjective Date of Service: 06/05/21 Reason For Visit: SI Subjective Notes: Conditional Voluntary Interim History: Pt reports feeling better in terms of depressed mood. She reports anxious mood is less than when she came in. She continues to present as hypervebal but less flight of ideas. She denies SI/HI. She reports sleeping through the night and looking forward to return to her house with her mother and siblings. Pt talked about periods when she has been manic and how her little sister has been afraid of her and how she wants to be stable for this reason. 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 Pt is in casual attire, wearing hoodie, short hair, normal body habitus, not malodorous. Good eye contact, mostly attentive. No Tics or Tremors. No abnormal involuntary movements. Calm, cooperative, engaged, tearful at tomes. Non-pressured speech, however talkative, spontaneous with regular rate and rhythm, normal volume and prosody. No prolonged speech latency or dysarthria. Mood is ?depressed,? affect is calm. Denies SI/SIB/HI upon inquiry. Currently denies A/VH or delusional thought content. Thoughts are tangential, grandiose at times. No known cognitive or memory impairment. Insight/ Judgment limited but adequate. Diagnostics Vital Signs (24Hr): Vital Signs - 24 hr 06/05/21 21:35 06/06/21 05:49 Temperature 97.5 F 97.6 F Pulse Rate 99 122 H Blood Pressure 95/53 L 132/59 L Pulse Oximetry 95 BMI result Verdana 4 Body Mass Index Verdana 4 24.7 Verdana 4 Verdana 4 Labs Results: 05/27/21 20:29 05/27/21 20:29 Labs: Laboratory Results - last 48 hr 06/04/21 06/04/21 17:45 19:15 Valproic Acid 123.1 H* COVID-19 ([facility]) Negative COVID-19 Clin Com See Note Medications Medications Current Medications Acetaminophen (Acetaminophen 325 Mg Tablet) 650 mg PO Q6H PRN PRN Reason: Headache/Pain Mild Scale (1-3) Al Hydroxide/Mg Hydroxide (Magnesium Hydrox/Alum Hydrox 30 Ml Oral.Susp) 30 ml PO Q6H PRN PRN Reason: Heartburn/Nausea Aripiprazole (Aripiprazole 10 Mg Tablet) 10 mg PO BEDTIME [facility] Last Admin: 06/05/21 21:36 Dose: 10 mg Documented by: Bisacodyl (Bisacodyl 5 Mg Tablet.Dr) 10 mg PO BEDTIME PRN PRN Reason: Constipation Last Admin: 06/04/21 21:15 Dose: 10 mg Documented by: Bupropion HCl (Bupropion Hcl Xl 150 Mg Tab.Er.24h) 150 mg PO DAILY [facility] Last Admin: 06/06/21 09:16 Dose: 150 mg Documented by: Divalproex Sodium (Divalproex Sodium Er 500 Mg Tab.Er.24h) 1,000 mg PO BEDTIME [facility] Last Admin: 06/05/21 21:35 Dose: 1,000 mg Documented by: Hydroxyzine HCl (Hydroxyzine Hcl 25 Mg Tablet) 25 mg PO BEDTIME PRN PRN Reason: Anxiety Last Admin: 06/05/21 23:50 Dose: 25 mg Documented by: Lorazepam (Lorazepam 1 Mg Tablet) 1 mg PO Q6H PRN PRN Reason: Anxiety Last Admin: 06/05/21 16:52 Dose: 1 mg Documented by: Magnesium Hydroxide (Milk Of Magnesia 30 Ml Oral.Susp) 30 ml PO DAILY PRN PRN Reason: Constipation Last Admin: 06/05/21 23:51 Dose: 30 ml Documented by: Trazodone HCl (Trazodone Hcl 100 Mg Tablet) 100 mg PO BEDTIME [facility] Last Admin: 06/05/21 21:35 Dose: 100 mg Documented by: Trazodone HCl (Trazodone Hcl 50 Mg Tablet) 50 mg PO BEDTIME PRN PRN Reason: Insomnia Allergies Allergies Allergy/AdvReac Type Severity Reaction Status Date / Time insect venom Allergy Unknown UNKNOWN Verified 08/19/20 20:48 [MOSQUITO] paliperidone [From Allergy Unknown DYSTONIC Verified 08/19/20 20:48 INVEGA] REACTION haloperidol AdvReac Intermediate Dystonic Verified 08/19/20 20:48 [HALOPERIDOL] reaction Assessment & Plan Assessment & Plan (1) PTSD (post-traumatic stress disorder): Status: Chronic Code(s): F43.10 - Post-traumatic stress disorder, unspecified (2) Bipolar I disorder with depression: Status: Acute Code(s): F31.9 - Bipolar disorder, unspecified Plan Barbara is a 21 y.o. Female who carries a dx of bipolar I DO, currently depressed, and PTSD. Pt is currently endorsing sx of depression, including sad mood, poor self esteem, hypersomnia, and isolative behaviors. She has been med non- adherent. Pt?s mother is concerned with pt?s emotional dysregulation, unpredictable behavior, and wt loss. She has a hx of manic/ hypomanic episodes but denies hx of hyposomnia. Utox positive for cannabis, no alcohol abuse. Plan: Pt has been re-started on her outpt medication regimen in the ED and reports positive benefit on depakote to prevent manic episodes and wellbutrin to treat depression. She is not currently interested in medication adjustment, however may benefit from increase in wellbutrin, as she has persistent low energy and depressed mood even when she is med adherent. Pt is goal oriented and insightful at times, however immature and grandiose at times. She would benefit increased daytime structure and continued therapy. 06/01: Will obtain VPA level 06/01/21, started on . Discussed re-trialing Abilify, as pt reports I remember it was calming and she felt focused on it. May help with depression. Reviewed risks and benefits, will monitor for akathesia. 06/02: pt less hyperverbal but with some flight of ideas. it seems pt was dysphoric prior to coming to unit, does note that abilify helps her stay on one topic at a time. pcing espinoza, no SI/HI. sleeping through the night. 06/03- add ativan. continue depakote, abilify, worried about wellbutrin worsening manic episodes or mixed episodes. but pt wants to continue wellbutrin. Monitor response to medications. Monitor for safety in the milieu. Discharge on stabilization. Patient seen. Chart reviewed. Discussed with team. Obtain collateral contact info?as needed I spent minutes with the patient and/or on the patient floor today, greater than?50% of which was spent counseling/coordinating care. Reason for contiued inpatient stay Substantial Risk for: stable for discharge
[2021-06-05 21:35] VITALS: BP 95/53; PULSE 99; TEMP 36.4
[2021-06-05] MEDS: traZODone HCL 100 MG TABLET PO (21:35)
[2021-06-05] MEDS: Divalproex Sodium ER 500 MG TAB.ER.24H 1000 MG PO (21:35)
[2021-06-05] MEDS: ARIPiprazole 10 MG TABLET PO (21:36)
[2021-06-05] MEDS: hydrOXYzine HCL 25 MG TABLET PO (23:50)
[2021-06-05] MEDS: Milk of Magnesia 30 ML ORAL.SUSP PO (23:51)
[2021-06-06 05:49] VITALS: BP 132/59; PULSE 122; TEMP 36.4; O2SAT 95
[2021-06-06] MEDS: buPROPion HCl XL 150 MG TAB.ER.24H PO (09:16)
--- NOTE | 2021-06-06 11:30 | P.DS_ITS ---
DS: Providers Provider Date of Service: 05/06/21 Date of admission: 05/29/21 16:21 Primary care physician: [facility] Attending physician on discharge: Robin Juan DS: Diagnosis Discharge Diagnosis (1) Bipolar I disorder with depression: Status: Acute (2) PTSD (post-traumatic stress disorder): Status: Chronic DS: Medications Discharge Medications Home Medications: Previous Rx's Medication Instructions Recorded aripiprazole 10 mg tablet 10 mg PO BEDTIME #30 tab 06/06/21 bupropion HCl 150 mg 24 hr tablet, 150 mg PO DAILY #30 tab 06/06/21 extended release divalproex 500 mg tablet,extended 1,000 mg PO BEDTIME #60 tab 06/06/21 release 24 hr lorazepam 0.5 mg tablet 0.5 mg PO DAILY PRN #30 tab 06/06/21 trazodone 100 mg tablet 100 mg PO BEDTIME #30 tab 06/06/21 Mental Status Exam Mental Status Exam Narrative: A&Ox3. Pt is in casual attire, wearing hoodie, short hair, normal body habitus, good hygiene. Good eye contact, mostly attentive. No Tics or Tremors. No abnormal involuntary movements. Calm, cooperative, engaged. Non-pressured speech, however talkative, spontaneous with regular rate and rhythm, normal volume and prosody. No prolonged speech latency or dysarthria. Mood is ?better,? affect is calm. Denies SI/SIB/HI upon inquiry. Currently denies A/VH or delusional thought content and does not appear internally preoccupied. Thoughts are tangential. No known cognitive or memory impairment. Insight/ Judgment l imited but adequate. Data Data Completed and Pending Completed studies during hospitalization [Text1]: 05/30/21 06/01/21 06/04/21 12:08 07:33 08:19 Ammonia Valproic Acid 129.2 H* 120.2 H* COVID-19 ([facility]) Negative COVID-19 Clin Com See Note 06/04/21 06/04/21 06/04/21 09:52 17:45 19:15 Ammonia 20 Valproic Acid 123.1 H* COVID-19 ([facility]) Negative COVID-19 Clin Com See Note DS: Summary Hospital Course Hospital Course: Subjective Notes: Bunch Warning and Conditional Voluntary Healthcare Proxy: No Guardianship: No Medical Problems Affecting Mental Status: No Narrative: Barbara is a 21 y.o. Female who carries a dx of bipolar I DO and PTSD. She self[place]present[place] [facility] [place] mother on 05/27/21 due to depression and SI. She has been recently med non-adherent, VPA level was 2.0. CARE team spoke with pt?s mother, who reported she is concerned with pt?s emotional dysregulation and unpredictable behavior. She is also concerned with pt?s wt lo ss. Utox positive for cannabis, no alcohol abuse. She was last hospitalized at [facility] in 01/2021. During her last admission, she was on Depakote, perphenazine, and lithium, which she reported helped with sx of todd, however did not feel relief from her sx of depression. She was discharged on depakote, as perphenazine and lithium were discontinued due to polypharm. She was started on wellbutrin for depression. Per chart, pt has a hx of manic episodes that can last about 1-2 weeks and include rapid speech, racing thoughts, easily distracted, increased goal- directed activity, and increased libido; however denies hx of hyposomnia. She was diagnosed with bipolar DO at age 14.? I evaluated pt this evening and upon interview she reports she has been ?depressed for like 2 years.? Sx of depression include inactivity, isolative behaviors, hypersomnia, poor hygiene, and low appetite. Says ?I stayed in my house, I didnt go anywhere, I didnt do anything.? She would sleep throughout the day and would take melatonin in order to fall back to sleep if she woke up. At night, pt would stay up from 2-7am. Pt identifies precipitating factors as moving from [place] (had lived there since age 8) to [place] after mom got evicted. Says she misses all her friends, ?losing contact with them was the worst case scenario and its exactly what happened,? feels this has been ?really painful? as she ?put every last bit of my energy in my friendships, I never thought we?d be able to live without each other.? Says she wakes up every day and thinks about them and ?about how different my life would be if I never had to move.? Says she struggles with having ?such big feelings, I feel everything.? Pt reports she stopped taking her meds due to inconsistent sleep schedule and forgetfulness. Now she is struggling with her identity and self esteem, ?I feel like if I?m not funny then nobody wants me around. I feel like I?m a laugh.? She feels lonely, doesnt feel like ?any person in my life values me.?? She is future oriented, wants to focus on herself and ?I want to stop being so mean to myself.? Pt states her medications have been helpful and attributes sx of depression to situational stress, ?I dont think what needs to happen to me is anything medication related, my meds are fine.? She is insightful about feeling stuck in life, ?nobodoy prepared me for what it was gonna feel like for how alone I would feel once the label of adult gets stamped on you.? She is still trying to obtain her GED. Pt is somewhat grandiose, as she says she would like to be famous for being a billy, rapper, or actor and then wants to have her own judy. Also says she wants to be a claim professional.? Past Psychiatric History: Past meds: lithium (weight gain), propranolol (helped with EPS), klonopin (worsening PTSD), perphenazine (lack of benefit). Multiple admissions to [facility] Psych provider is Clarisse Smith at [facility] Medical Evaluation Reviewed: Yes HOSPITAL COURSE On the unit, Ms. Porter was admitted on a CV and placed on 15 minutes checks for safety. Pt appeared to have mixed episode of Bipolar Disorder type 1 in that she presented with mood lability, times of reporting depressed mood, no SI/HI. She was hyperverbal, at times difficult to interrupt and thought process very tangential with some derailment. After discussing risks, benefits and alternative treatment options, Ms. Porter agreed to start abilify, which she tolerated well and was titrated to 10mg po daily. She was continued on depakote. She was also continued on wellbutrin but we discussed risk of worsening manic symptoms. Her affect appeared less labile. Her sleep improved. She showed increased insight into how medication helps with racing thoughts, hyperverbal speech and difficulty concentrating. She denied SI/HI. She did not show any signs of aggression towards self or others. She was visible in the unit and attended assigned groups. Collateral information gathered from her mother who agreed that pt appeared in much improved condition and denied any safety concerns at time of discharge. Status at Discharge Cognitive/behavioral status at discharge: Pt with bright affect, non labile. Some hyperverbal speech but to lesser extend with no loose associations. No SI/HI. No overt delusional or psychosis noted or reported. Future oriented, looking forward to continue OP psych tx and in agreement to return to her mother's house. No signs of aggression towards self or others. Functional status at discharge: independent ambulation Overall status at discharge: patient is progressing back to baseline Time Spent with Patient Time attestation: Total time spent providing and/or coordinating discharge services: Time spent: Greater than 30 minutes Discharge Plan Discharge Patient Disposition: Home, Self-Care Discharge Diagnosis: Bipolar 1 Disorder Referrals: Sahara Carrillo (therapy) [Other] - 06/09/21 4:45 pm (This is a Telehealth appointment ) Clarisse Smith (psychiatric medication management) [Other] - 06/17/21 11:00 am (This is a Telehealth appointment ) [facility] [Primary Care Provider] - 1 Week Name,MD Lan [Physician] - 06/10/21 10:00 am (in office) Discharge Medications: New trazodone 100 mg Tablet 100 mg PO BEDTIME Qty: 30 0RF divalproex 500 mg Tablet Extended Release 24 Hr 1,000 mg PO BEDTIME Qty: 60 0RF aripiprazole 10 mg Tablet 10 mg PO BEDTIME Qty: 30 0RF bupropion HCl 150 mg Tablet Extended Release 24 Hr 150 mg PO DAILY Qty: 30 0RF lorazepam 0.5 mg tablet 0.5 mg PO DAILY PRN (Reason: Anxiety) Qty: 30 0RF Discontinued prazosin 1 mg Capsule 2 mg PO BEDTIME 30 Days Qty: 60 0RF Protocol: Hold for SBP< HOLD for SBP < : 90 bupropion HCl 150 mg Tablet Extended Release 24 Hr 150 mg PO DAILY 30 Days Qty: 30 0RF trazodone 100 mg Tablet 100 mg PO BEDTIME 30 Days Qty: 30 0RF divalproex [Depakote ER] 500 mg tablet extended release 24 hr 1,500 mg PO DAILY 30 Days Qty: 90 0RF divalproex [Depakote ER] 250 mg tablet extended release 24 hr 1 tab PO BEDTIME 0RF Discharge Orders: Discharge Order (Routine); Ordered 06/06/21 Ordered By: Farrah Torres Diet: regular diet Activity on Discharge: As tolerated Stand Alone Forms: Patient Portal Discharge page, Community Support Care Plan Goals: 1. Maintain mood 2. No SI/HI Health Concerns: Follow up with pcp Plan of Treatment: 1. take medications as prescribed 2. go to nearest ED or call 911 in event of emergency Assessment: Pt continues to present with mixed episode of bipolar disorder, hyperverbal but less flight of ideas, less grandiose, less labile mood. improved sleep. No SI/HI. No signs of aggression towards self or others. Discharge Date/Time: 06/06/21 13:35
[2021-06-06] MEDS: LORazepam 1 MG TABLET PO (12:15)
== END 2021-06-06 13:35 | disposition home or self-care (01) | DRG 753 ==
LOC: HO.ED 19:39 → HO.PADLT16 05-29 16:33 → HO.PM5 05-30 16:36
PROVIDERS: Psychiatry & Neurology Psychiatry; Registered Nurse; Admitting Provider Psychiatry & Neurology Psychiatry; Emergency Provider Emergency Medicine; Visit Provider Social Worker
DX: F31.9 Bipolar disorder, unspecified (principal); R45.851 Suicidal ideations; F43.10 Post-traumatic stress disorder, unspecified; Z20.822 Contact with and (suspected) exposure to COVID-19; Z87.891 Personal history of nicotine dependence; Z79.899 Other long term (current) drug therapy
CPT/HCPCS: 36415; 80048; 80076; 80164; 80307; 81025; 82140; 85025; 87635; 99285

== ENCOUNTER 2021-07-09 15:17 | Emergency (ER) | payer MEDICAID, SELFPAY ==
--- NOTE | 2021-07-09 | ECG_ITS ---
Test Reason : MEDICAL CLEARANCE Blood Pressure : / mmHG Vent. Rate : 066 BPM Atrial Rate : 066 BPM P-R Int : 168 ms QRS Dur : 076 ms QT Int : 430 ms P-R-T Axes : 052 070 067 degrees QTc Int : 450 ms Normal sinus rhythm Juvenile T waves Normal ECG When compared with ECG of 30-JAN-2021 18:31, No significant change was found Referred By: Clementine Ford Electronically Signed By:Jun Chamberlain
[2021-07-09 16:45] VITALS: BP 96/53; PULSE 86; RESP 18; TEMP 36.5; O2SAT 100; BMI 21.7
--- NOTE | 2021-07-09 17:28 | ED_ITS ---
HPI - Psych General Chief Complaint: Psychiatric Symptoms Stated Complaint: Behavioral health pod- crisis? Time Seen by Provider: 07/09/21 17:21 Source: patient Mode of arrival: ambulatory Limitations: no limitations History of Present Illness HPI Narrative: Patient is a 21 year old female presenting to the emergency department today with increased anxiety, depression, and anger. Patient states that her girlfriend and her recently broke up and she isn't sure she will ever find another partner. Patient states she would like to be admitted because that is the most supported she feels is when she is admitted. Patient denies any SI or HI. Patient denies any dizziness, lightheadedness, abdominal pain, nausea, vomiting, fever, chills, blurry vision, double vision, loss of vision, chest pain, difficulty breathing, shortness of breath, back pain, night sweats, pain with urination, increased urinary frequency, increased urinary urgency, blood in her urine or stool, syncope or a near syncopal episode, recent trauma or falls, bowel incontinence, bladder incontinence, bowel retention, bladder retention, or any other complaints at this time. MD complaint: feels depressed and anxiety Related Data Previous Rx's Medication Instructions Recorded aripiprazole 10 mg tablet 10 mg PO BEDTIME #30 tab 06/06/21 bupropion HCl 150 mg 24 hr tablet, 150 mg PO DAILY #30 tab 06/06/21 extended release divalproex 500 mg tablet,extended 1,000 mg PO BEDTIME #60 tab 06/06/21 release 24 hr lorazepam 0.5 mg tablet 0.5 mg PO DAILY PRN #30 tab 06/06/21 trazodone 100 mg tablet 100 mg PO BEDTIME #30 tab 06/06/21 Allergies Allergy/AdvReac Type Severity Reaction Status Date / Time insect venom [MOSQUITO] Allergy Unknown UNKNOWN Verified 07/09/21 16:45 paliperidone [From INVEGA] Allergy Unknown DYSTONIC Verified 07/09/21 16:45 REACTION haloperidol [HALOPERIDOL] AdvReac Intermediate Dystonic Verified 07/09/21 16:45 reaction Review of Systems Constitutional: Constitutional: Reports no additional constitutional complaints, Denies chills, Denies fever(s) and Denies night sweats Eyes: Eyes: Reports no additional eye complaints, Denies blurry vision, Denies change in vision, Denies diplopia, Denies eye discharge, Denies loss of vision and Denies eye pain ENT: Denies dizziness Cardiovascular: Cardiovascular: Reports no additional cardiovascular complaints, Denies chest pain, Denies lightheadedness, Denies Loss of Cons ciousness and Denies dyspnea Respiratory: Respiratory: Reports no additional respiratory complaints and Denies dyspnea Gastrointestinal: Gastrointestinal: Reports no additional gastrointestinal complaints, Denies abdominal pain, Denies melena, Denies hematochezia, Denies change in bowel habits and Denies change in stool character Genitourinary: Genitourinary: Denies hematuria, Denies urinary frequency, Denies dysuria, Denies urinary incontinence, Denies urinary hesitancy and Denies urinary urgency Musculoskeletal: Musculoskeletal: Reports no additional musculoskeletal complaints, Denies numbness and Denies tingling Neurologic: Denies dizziness, Denies loss of vision, Denies numbness and Denies tingling Psychiatric: Psychiatric: Reports anxiety and Reports depression Endocrine: Endocrine: Reports no additional endocrine complaints Hematologic/Lymphatic: Hematologic/Lymphatic: Reports no additional hematologic/lymphatic complaints Allergic/Immunologic: Allergic/Immunologic: Reports no additional allergic/immunologic complaints ON LICENSE OF [facility] Past Medical History Attestation statement: The following information was validated with the patient. Source: old records reviewed Medical History Anxiety Bipolar 1 disorder Bipolar 1 disorder, depressed, full remission Depression PTSD (post-traumatic stress disorder) PTSD (post-traumatic stress disorder) Social History Social History Household Members: Family Household Members Other:: Mom, sister, 2 brothers Housing: Apartment Do you presently have visiting nurse or other home services: No Alcohol intake: former Patient Tobacco Use Status: Former Tobacco user Quit Date: 02/11/2021 Tobacco use type: Cigarette Cigarettes Per Day: 3 Years Smoked: 2 years e-Cigarette/Vaping Use: Former Use Second Hand Smoke Exposure: Yes Substance Use Type: Crack/Cocaine, Marijuana and Other Advance Directives: No Advance Directives Information Provided: No Healthcare Proxy: No Guardian: No Patient : No service: No Sexual orientation: Lesbian/Garcia/Homosexual Physical Exam Vital Signs: Vital Signs: Last Vital Signs Temp 97.7 F 07/09/21 16:45 Pulse 86 07/09/21 16:45 Resp 18 07/09/21 16:45 BP 96/53 L 07/09/21 16:45 Pulse Ox 100 07/09/21 16:45 BMI result Body Mass Index 21.7 Const: General: cooperative, no acute distress, alert and awake Nutritional Appearance: well nourished Orientation/consciousness: patient oriented x3 Limitations: no limitations HENMT: Head: Yes normal to inspection and Yes atraumatic Ears: hearing grossly normal bilaterally and external ears normal General nose exam: Normal external nose present, no nasal discharge noted and no epistaxis Face and sinus: Yes normal facial exam, No abrasion and No laceration Mouth: Normal oral and palatal mucosa present, no drooling and no muffled voice Eyes: General: appearance normal, both eyes and all related structures Belkys orbital: periorbital findings normal Eyelids: Yes eyelids normal Conjunctivae: conjunctivae normal Pupils: Equal, round and reactive pupils present EOM: EOMs intact bilaterally Neck: Neck: Yes normal visual inspection, Yes full ROM and Yes no lymphadenopathy Chest: Chest palpation & inspection: normal inspection of the chest Resp: Effort & Inspection: normal respiratory effort and able to speak in complete sentences Auscultation: clear to auscultation bilaterally Cardio: Rate: regular rate Rhythm: regular rhythm GI: Inspection: Yes normal to inspection Neuro: General: patient oriented x3 and moves all extremities Cranial nerves: Yes Equal, round and reactive pupils present Cognition (Neuro): normal cognition Motor exam (neuro): 5/5 motor strength present throughout Sensory Exam: Normal double simultaneous stimulation for sensation Coordination: [id number] test normal Extrem: General: Yes normal to inspection, Yes full ROM and Yes capillary refill normal Psych: Appearance: grossly normal Mental Status: mental status grossly normal Affect: normal affect Attitude: cooperative Thought process: Racing thoughts present Thought content: Depressive thoughts present Insight: Fair insight present (Psych) MDM - Psych MDM Narrative Medical decision making narrative: Patient is a 21 year old female presenting to the emergency department today feeling anxious, depressed, and angry. Patient's physical exam was unremarkable. Patient's blood work was unremarkable. I explained my physical exam findings as well as all test results to the patient. I answered all questions asked by the patient. Physician observation started at 2302. Patient is requesting to be admitted inpatient as that is where she feels the most supported. Patient to be evaluated in the AM by care team. Differential Diagnosis Differential diagnosis: Likely depression Medical Records Attestation: I reviewed the patient's medical records. Lab Data Attestation: I reviewed the patient's lab results. Result diagrams: 07/09/21 18:58 07/09/21 18:58 Labs: Lab Results 07/09/21 07/09/21 07/09/21 Range/Units 17:28 18:52 18:58 WBC 5.4 (4.8-10.8) X10*3/uL RBC 4.35 (4.20-5.50) X10*6/uL Hgb 13.2 (12.0-16.0) g/dl Hct 40.0 (37.0-47.0) % MCV 92.0 (80.0-98.0) fL MCH 30.3 (27.0-33.0) pg MCHC 33.0 (31.0-35.0) g/dl RDW 12.8 (11.0-16.0) % Plt Count 188 D (160-400) X10*3/uL MPV 11.2 (9.4-12.3) fL Immature Gran % (Auto) 0.4 (0.0-0.4) % Neut % (Auto) 52.3 (45-73) % Lymph % (Auto) 40.7 H (20-40) % [place] % (Auto) 5.4 (2-11) % Eos % (Auto) 0.6 (0-4) % Baso % (Auto) 0.6 (0-2) % Lymph # (Auto) 2.2 (1.2-4.9) X10*3/uL [place] # (Auto) 0.3 (0.1-1.2) X10*3/uL Eos # (Auto) 0.0 (0.0-0.4) X10*3/uL Baso # (Auto) 0.0 (0.0-0.2) X10*3/uL Abs Immat Gran (auto) 0.02 (0.00-0.03) X10*3/uL Absolute Neuts (auto) 2.8 (2.0-8.3) x10*3/uL Absolute Nucleated RBC 0.000 (0.0-0.012) X10*3/uL Nucleated RBC % (auto) 0.0 (0.0-0.2) /100WBC Sodium (135-145) mmol/L Potassium (3.3-5.1) mmol/L Chloride (96-108) mmol/L Carbon Dioxide (22-29) mmol/L Anion Gap (12-20) BUN (9-16) mg/dL Creatinine (0.5-1.4) mg/dL Estim Creat Clear Calc Estimated GFR Fasting Glucose (60-99) mg/dL Calcium (8.4-10.2) mg/dL Total Bilirubin (0.0-1.0) mg/dL AST (5-31) U/L ALT (0-31) U/L Alkaline Phosphatase (39-117) U/L Total Protein (6.5-8.0) g/dL Albumin (3.5-5.0) g/dL Urine Opiates Screen Not Detected (Not Detect) Urine Fentanyl Screen POSITIVE H (Not Detect) Ur Barbiturates Screen Not Detected (Not Detect) Valproic Acid (50.0-100.0) mcg/mL Ur Phencyclidine Scrn Not Detected (Not Detect) Ur Amphetamines Screen Not Detected (Not Detect) U Benzodiazepines Scrn Not Detected (Not Detect) Urine Cocaine Screen Not Detected (Not Detect) U Marijuana (THC) Screen POSITIVE H (Not Detect) Ethyl Alcohol mg/dL COVID-19 (SIENNA) Negative (Negative) COVID-19 Clin Com See Note 07/09/21 07/09/21 Range/Units 18:58 18:58 WBC (4.8-10.8) X10*3/uL RBC (4.20-5.50) X10*6/uL Hgb (12.0-16.0) g/dl Hct (37.0-47.0) % MCV (80.0-98.0) fL MCH (27.0-33.0) pg MCHC (31.0-35.0) g/dl RDW (11.0-16.0) % Plt Count (160-400) X10*3/uL MPV (9.4-12.3) fL Immature Gran % (Auto) (0.0-0.4) % Neut % (Auto) (45-73) % Lymph % (Auto) (20-40) % [place] % (Auto) (2-11) % Eos % (Auto) (0-4) % Baso % (Auto) (0-2) % Lymph # (Auto) (1.2-4.9) X10*3/uL [place] # (Auto) (0.1-1.2) X10*3/uL Eos # (Auto) (0.0-0.4) X10*3/uL Baso # (Auto) (0.0-0.2) X10*3/uL Abs Immat Gran (auto) (0.00-0.03) X10*3/uL Absolute Neuts (auto) (2.0-8.3) x10*3/uL Absolute Nucleated RBC (0.0-0.012) X10*3/uL Nucleated RBC % (auto) (0.0-0.2) /100WBC Sodium 141 (135-145) mmol/L Potassium 4.7 (3.3-5.1) mmol/L Chloride 105 (96-108) mmol/L Carbon Dioxide 29 (22-29) mmol/L Anion Gap 12 (12-20) BUN 4 L (9-16) mg/dL Creatinine 0.68 (0.5-1.4) mg/dL Estim Creat Clear Calc 122.5 Estimated GFR > 60 Fasting Glucose 105 H (60-99) mg/dL Calcium 10.0 (8.4-10.2) mg/dL Total Bilirubin 0.4 (0.0-1.0) mg/dL AST 13 D (5-31) U/L ALT < 6 (0-31) U/L Alkaline Phosphatase 49 D (39-117) U/L Total Protein 7.0 (6.5-8.0) g/dL Albumin 4.2 (3.5-5.0) g/dL Urine Opiates Screen (Not Detect) Urine Fentanyl Screen (Not Detect) Ur Barbiturates Screen (Not Detect) Valproic Acid 98.8 (50.0-100.0) mcg/mL Ur Phencyclidine Scrn (Not Detect) Ur Amphetamines Screen (Not Detect) U Benzodiazepines Scrn (Not Detect) Urine Cocaine Screen (Not Detect) U Marijuana (THC) Screen (Not Detect) Ethyl Alcohol < 10 mg/dL COVID-19 (SIENNA) (Negative) COVID-19 Clin Com Discharge Plan Discharge Clinical Impression: Depression Patient Disposition: Still a Patient Instructions: Depression (ED) Prescriptions: No Action trazodone 100 mg Tablet 100 mg PO BEDTIME Qty: 30 0RF divalproex 500 mg Tablet Extended Release 24 Hr 1,000 mg PO BEDTIME Qty: 60 0RF aripiprazole 10 mg Tablet 10 mg PO BEDTIME Qty: 30 0RF bupropion HCl 150 mg Tablet Extended Release 24 Hr 150 mg PO DAILY Qty: 30 0RF lorazepam 0.5 mg tablet 0.5 mg PO DAILY PRN (Reason: Anxiety) Qty: 30 0RF Print Language: Telugu
--- NOTE | 2021-07-09 17:36 | PC.NURSE ---
client comes in expressing frustration primarily with family dynamic at home. patient states she has felt good with medications she was dc'ed with, patient essentially expresses frustration w arguments between siblings.
[2021-07-09 17:51] LABS: Amphetamine Screen Urine Not Detected (Not Detect); Barbiturates, Urine Not Detected (Not Detect); Benzodiazepines Screen Urine Not Detected (Not Detect); Cannabinoid Screen Urine POSITIVE (Not Detect); Cocaine Screen Urine Not Detected (Not Detect); Fentanyl, urine POSITIVE (Not Detect); Opiate Screen Urine Not Detected (Not Detect); Phencyclidine Screen Urine Not Detected (Not Detect)
[2021-07-09 19:04] LABS: MANUAL DIFF FLAG NO
[2021-07-09 19:17] LABS: Ethanol < 10 mg/dL
[2021-07-09 19:21] LABS: Basophils Percent Auto 0.6 % (0-2); Eosinophils Percent Auto 0.6 % (0-4); Hemoglobin 13.2 g/dl (12.0-16.0); Imm Gran Abs Auto 0.02 X10*3/uL (0.00-0.03); Imm Gran Pct Auto 0.4 % (0.0-0.4); Lymphocytes Absolute Auto 2.2 X10*3/uL (1.2-4.9); Lymphocytes Percent Auto 40.7 % (20-40); Mean Corpuscular Hemoglobin 30.3 pg (27.0-33.0); Mean Platelet Volume 11.2 fL (9.4-12.3); Monocytes Absolute Auto 0.3 X10*3/uL (0.1-1.2); Monocytes Percent Auto 5.4 % (2-11); Neutrophils Absolute Auto 2.8 x10*3/uL (2.0-8.3); Neutrophils Percent Auto 52.3 % (45-73); Platelet Count 188 X10*3/uL (160-400); Red Blood Count 4.35 X10*6/uL (4.20-5.50); Red Cell Distribution Width 12.8 % (11.0-16.0); White Blood Count 5.4 X10*3/uL (4.8-10.8)
[2021-07-09 19:23] LABS: Alanine Aminotransferase < 6 U/L (0-31); Albumin Level 4.2 g/dL (3.5-5.0); Alkaline Phosphatase 49 U/L (39-117); Anion Gap 12 (12-20); Aspartate Amino Transferase 13 U/L (5-31); Bilirubin Total 0.4 mg/dL (0.0-1.0); Blood Urea Nitrogen 4 mg/dL (9-16); Carbon Dioxide 29 mmol/L (22-29); Chloride 105 mmol/L (96-108); Creatinine Clr Calc Pharmacy 122.5; Estimated Glomerular Filt Rate > 60; Glucose Fasting 105 mg/dL (60-99); Potassium 4.7 mmol/L (3.3-5.1); Sodium 141 mmol/L (135-145)
[2021-07-09 19:26] LABS: COVID-19 Test Negative (Negative); IDNOW Serial# 08D9AD1C
[2021-07-09 20:28] LABS: Valproate 98.8 mcg/mL (50.0-100.0)
[2021-07-09] MEDS: traZODone HCL 100 MG TABLET PO (22:48)
[2021-07-09] MEDS: ARIPiprazole 10 MG TABLET PO (22:48)
[2021-07-09] MEDS: Divalproex Sodium ER 500 MG TAB.ER.24H 1000 MG PO (22:48)
--- NOTE | 2021-07-10 05:36 | PC.NURSE ---
Patient slept through the night, no distress observed/reported, behavior appropriate and non concerning, medication compliant, disposition per care team is Respite bed search, will continue to monitor.
[2021-07-10 05:48] VITALS: BP 98/62; PULSE 86; RESP 18; TEMP 36.7; O2SAT 98
[2021-07-10 07:32] VITALS: BP 90/51; PULSE 96; RESP 12; TEMP 36.1; O2SAT 98
[2021-07-10] MEDS: buPROPion HCl XL 150 MG TAB.ER.24H PO (08:04)
[2021-07-10 12:26] VITALS: BP 91/65; PULSE 99; RESP 13; O2SAT 98
== END 2021-07-10 13:06 ==
PROVIDERS: Physician Assistant; Physician Assistant Medical; Emergency Provider Emergency Medicine
DX: F31.9 Bipolar disorder, unspecified (principal); F41.9 Anxiety disorder, unspecified; R45.4 Irritability and anger; Z20.822 Contact with and (suspected) exposure to COVID-19; F43.10 Post-traumatic stress disorder, unspecified; F12.90 Cannabis use, unspecified, uncomplicated; Z79.899 Other long term (current) drug therapy; Z87.891 Personal history of nicotine dependence; Z72.89 Other problems related to lifestyle; Z63.0 Problems in relationship with spouse or partner
CPT/HCPCS: 36415; 80053; 80164; 80307; 82077; 85025; 87635; 93005; 99284

== ENCOUNTER 2021-08-14 14:20 | Emergency (ER) | payer MEDICAID, SELFPAY ==
--- NOTE | 2021-08-14 14:40 | PC.NURSE ---
called x1, no response
[2021-08-14 16:14] VITALS: BP 100/50; PULSE 70; RESP 19; TEMP 36.1; O2SAT 98; BMI 18.6
[2021-08-14 16:40] LABS: Appearance Urine CLOUDY; Color Urine YELLOW; Glucose Urine UA NEG (NEG); Leukocyte Esterase Urine 2+ (NEG); Nitrite Urine POS (NEG); Specific Gravity - Urine >= 1.030 (1.005-1.025); UACC Culture Trigger YES; Urine Blood 3+ (NEG); Urine Ketones 15 MG/DL (NEG); Urine Protein 2+ MG/DL (NEG-TRACE)
[2021-08-14 16:42] LABS: UPreg QC Valid YES; Urine Pregnancy NEGATIVE (NEGATIVE)
[2021-08-14 16:52] LABS: Calcium Oxalate Crystals Urine 2+ /LPF; RBC Urine 50-75 /HPF (0); UACC CULT YES; WBC Urine TNTC /HPF (0-4)
[2021-08-14 16:53] LABS: Bacteria Urine 1+ /LPF; Squamous Epithelial Cell Urine 2+ /LPF
--- NOTE | 2021-08-14 17:50 | ED.FEMALEGU ---
HPI - Female Genitourinary General Chief complaint: Urogenital-Female Stated complaint: pain upon urination Time Seen by Provider: 08/14/21 17:40 Source: patient Mode of arrival: ambulatory Limitations: no limitations History of Present Illness HPI Narrative: 21-year-old female Related Data Previous Rx's Medication Instructions Recorded aripiprazole 10 mg tablet 10 mg PO BEDTIME #30 tab 06/06/21 bupropion HCl 150 mg 24 hr tablet, 150 mg PO DAILY #30 tab 06/06/21 extended release divalproex 500 mg tablet,extended 1,000 mg PO BEDTIME #60 tab 06/06/21 release 24 hr lorazepam 0.5 mg tablet 0.5 mg PO DAILY PRN #30 tab 06/06/21 trazodone 100 mg tablet 100 mg PO BEDTIME #30 tab 06/06/21 ciprofloxacin HCl 500 mg tablet 500 mg PO Q12H #14 tab 08/14/21 phenazopyridine 200 mg tablet 200 mg PO TID PRN #10 tab 08/14/21 (Pyridium) Allergies Allergy/AdvReac Type Severity Reaction Status Date / Time insect venom [MOSQUITO] Allergy Unknown UNKNOWN Verified 08/14/21 17:32 paliperidone [From INVEGA] Allergy Unknown DYSTONIC Verified 08/14/21 17:32 REACTION haloperidol [HALOPERIDOL] AdvReac Intermediate Dystonic Verified 08/14/21 17:32 reaction Review of Systems Review of Systems: Yes all other systems are reviewed and are negative Constitutional: Constitutional: Reports no additional constitutional complaints, Denies body ache(s), Denies chills, Denies fever(s), Denies headache(s) and Denies weakness Eyes: Eyes: Reports no additional eye complaints and Denies change in vision ENT: Reports system reviewed and no additional complaints, except as documented, Denies dizziness, Denies headache(s), Denies nasal congestion, Denies nasal discharge and Denies neck pain Cardiovascular: Cardiovascular: Reports no additional cardiovascular complaints, Denies chest pain, Denies leg edema and Denies dyspnea Respiratory: Respiratory: Reports no additional respiratory complaints, Denies cough and Denies dyspnea Gastrointestinal: Gastrointestinal: Reports no additional gastrointestinal complaints, Denies abdominal pain, Denies diarrhea, Denies nausea and Denies vomiting Genitourinary: Genitourinary: Reports no additional female genitourinary complaints, Denies hematuria, Reports dysuria, Denies flank pain, Denies urinary incontinence, Denies urinary hesitancy, Reports urinary urgency and Denies vaginal discharge Musculoskeletal: Musculoskeletal: Reports no additional musculoskeletal complaints, Denies back pain, Denies arthralgias, Denies joint swelling, Denies neck pain, Denies numbness and Denies tingling Integumentary/Breasts: Skin/Breast: Reports system reviewed and no additional complaints, except as docu and Denies rash Neurologic: Reports system reviewed and no additional complaints, except as documented, Denies Abnormal speech present, Denies dizziness, Denies headache(s), Denies numbness, Denies tingling and Denies weakness PMFSH Past Medical History Attestation statement: The following information was validated with the patient. Source: old records reviewed and nursing notes reviewed Medical History Anxiety Bipolar 1 disorder Bipolar 1 disorder, depressed, full remission Depression PTSD (post-traumatic stress disorder) PTSD (post-traumatic stress disorder) Social History Social History Household Members: Family Household Members Other:: Mom, sister, 2 brothers Housing: Apartment Do you presently have visiting nurse or other home services: No Alcohol intake: former Patient Tobacco Use Status: Former Tobacco user Quit Date: 02/11/2021 Tobacco use type: Cigarette Cigarettes Per Day: 3 Years Smoked: 2 years e-Cigarette/Vaping Use: Former Use Second Hand Smoke Exposure: Yes Substance Use Type: Crack/Cocaine, Marijuana and Other Advance Directives: No Advance Directives Information Provided: No service: No Sexual orientation: Lesbian/Garcia/Homosexual Physical Exam Vital Signs: Vital Signs: Last Vital Signs Temp 97 F 08/14/21 16:14 Pulse 70 08/14/21 16:14 Resp 19 08/14/21 16:14 BP 100/50 L 08/14/21 16:14 Pulse Ox 98 08/14/21 16:14 BMI result Body Mass Index 18.6 Const: General: cooperative, healthy appearing, comfortable and no acute distress Orientation/consciousness: patient oriented x3 Limitations: no limitations HEENT: Head: Yes normal to inspection Ears: hearing grossly normal bilaterally General nose exam: Normal external nose present Face and sinus: Yes normal facial exam Mouth: Normal oral and palatal mucosa present Throat: Yes posterior oropharynx normal Eyes: General: appearance normal, both eyes and all related structures Pupils: Equal, round and reactive pupils present Neck: Neck: Yes normal visual inspection Chest: Chest palpation & inspection: normal inspection of the chest Resp: Effort & Inspection: normal respiratory effort Auscultation: clear to auscultation bilaterally Cardio: Rate: regular rate Rhythm: regular rhythm Peripheral pulses: Peripheral pulses 2+ throughout GI: Inspection: Yes normal to inspection Palpation (GI): Soft to palpation and nontender Auscultation: normal bowel sounds : General: Yes no CVA tenderness Back/Spine/Pelvis: Back: no CVA tenderness Thoracic/Lumbar Spine: thoracic and lumbar spine normal to inspection Skin: General skin exam: no rashes or lesions noted Neuro: General: patient oriented x3, no focal motor deficits and normal sensation to monofilament Cranial nerves: Yes Equal, round and reactive pupils present Cognition (Neuro): normal cognition Speech: No Abnormal speech present Gait exam (Neuro): Normal gait present Motor exam (neuro): 5/5 motor strength present throughout Extrem: General: Yes normal to inspection Course Course Course Narrative: 21 yo female here with UTI symptoms. No CVAT, non toxic with low concern for pyelo. Will treat with course of antibiotics. You had worrisome signs and symptoms of when to return to the emergency department. Comfortable discharge home. MDM - Female Genitourinary Medical Records Attestation: I reviewed the patient's medical records. Lab Data Attestation: I reviewed the patient's lab results. Labs: Lab Results 08/14/21 08/14/21 Range/Units 16:28 16:28 Urine Color YELLOW Urine Appearance CLOUDY Urine pH 6.0 (5.0-8.0) Ur Specific [place] >= 1.030 H (1.005-1.025) Urine Protein 2+ H (NEG-TRACE) MG/DL Urine Glucose (UA) NEG (NEG) MG/DL Urine Ketones 15 (NEG) MG/DL Urine Blood 3+ H (NEG) Urine Nitrite POS H (NEG) Ur Leukocyte Esterase 2+ H (NEG) Urine RBC 50-75 H (0) /HPF Urine WBC TNTC H (0-4) /HPF Ur Squamous Epith Cells 2+ /LPF Calcium Oxalate Crystal 2+ /LPF Urine Bacteria 1+ /LPF Urine Test NEGATIVE (NEGATIVE) Discharge Plan Discharge Clinical Impression: Urinary tract infection Patient Disposition: Home, Self-Care Instructions: Urinary Tract Infection in Women (DC) Additional Instructions: Increase fluids, rest Take Motrin or Tylenol for pain as needed Return for fever, vomiting, severe pain Prescriptions: New phenazopyridine [Pyridium] 200 mg tablet 200 mg PO TID PRN (Reason: pain) Qty: 10 0RF ciprofloxacin HCl 500 mg tablet 500 mg PO Q12H Qty: 14 0RF No Action trazodone 100 mg Tablet 100 mg PO BEDTIME Qty: 30 0RF divalproex 500 mg Tablet Extended Release 24 Hr 1,000 mg PO BEDTIME Qty: 60 0RF aripiprazole 10 mg Tablet 10 mg PO BEDTIME Qty: 30 0RF bupropion HCl 150 mg Tablet Extended Release 24 Hr 150 mg PO DAILY Qty: 30 0RF lorazepam 0.5 mg tablet 0.5 mg PO DAILY PRN (Reason: Anxiety) Qty: 30 0RF Referrals: Physician,Unknown J [Primary Care Provider] - Interventions: ED Discharge Assessment Last Done: 08/14/21 17:57 Discharge Date/Time: 08/14/21 17:57
== END 2021-08-14 17:57 | disposition home or self-care (01) ==
PROVIDERS: Emergency Provider Internal Medicine
DX: N39.0 Urinary tract infection, site not specified (principal); R39.15 Urgency of urination
CPT/HCPCS: 81001; 81025; 87086; 87088; 87186; 99283; 99284

== ENCOUNTER 2021-08-29 12:47 | Outpatient (REF) | payer MEDICAID, SELFPAY ==
[2021-08-29 13:03] LABS: MANUAL DIFF FLAG NO
[2021-08-29 13:25] LABS: Basophils Percent Auto 0.4 % (0-2); Eosinophils Percent Auto 0.4 % (0-4); Hematocrit 38.7 % (37.0-47.0); Hemoglobin 12.8 g/dl (12.0-16.0); Imm Gran Abs Auto 0.02 X10*3/uL (0.00-0.03); Imm Gran Pct Auto 0.3 % (0.0-0.4); Lymphocytes Absolute Auto 2.4 X10*3/uL (1.2-4.9); Lymphocytes Percent Auto 35.1 % (20-40); Mean Corpuscular HGB Conc 33.1 g/dl (31.0-35.0); Mean Corpuscular Volume 93.7 fL (80.0-98.0); Mean Platelet Volume 10.5 fL (9.4-12.3); Monocytes Absolute Auto 0.4 X10*3/uL (0.1-1.2); Monocytes Percent Auto 5.9 % (2-11); Neutrophils Absolute Auto 3.9 x10*3/uL (2.0-8.3); Neutrophils Percent Auto 57.9 % (45-73); Platelet Count 219 X10*3/uL (160-400); Red Blood Count 4.13 X10*6/uL (4.20-5.50); Red Cell Distribution Width 12.9 % (11.0-16.0); White Blood Count 6.8 X10*3/uL (4.8-10.8)
[2021-08-29 13:57] LABS: Appearance Urine CLOUDY; Color Urine DK YELLOW; Glucose Urine UA NEG (NEG); Leukocyte Esterase Urine 2+ (NEG); Nitrite Urine NEG (NEG); Specific Gravity - Urine >= 1.030 (1.005-1.025); Urine Blood NEG (NEG); Urine Ketones 40 MG/DL (NEG); Urine Protein 2+ MG/DL (NEG-TRACE)
[2021-08-29 14:10] LABS: Amphetamine Screen Urine POSITIVE (Not Detect); Barbiturates, Urine Not Detected (Not Detect); Benzodiazepines Screen Urine Not Detected (Not Detect); Cannabinoid Screen Urine POSITIVE (Not Detect); Fentanyl, urine POSITIVE (Not Detect); Opiate Screen Urine Not Detected (Not Detect); Phencyclidine Screen Urine Not Detected (Not Detect)
[2021-08-29 14:11] LABS: Cocaine Screen Urine Not Detected (Not Detect)
[2021-08-29 14:14] LABS: WBC Urine 50-75 /HPF (0-4)
[2021-08-29 14:15] LABS: Bacteria Urine 2+ /LPF; RBC Urine 0-2 /HPF (0); Squamous Epithelial Cell Urine 3+ /LPF
[2021-08-29 14:18] LABS: Alanine Aminotransferase 7 U/L (0-31); Alkaline Phosphatase 53 U/L (39-117); Anion Gap 11 (12-20); Aspartate Amino Transferase 14 U/L (5-31); Bilirubin Total 0.6 mg/dL (0.0-1.0); Blood Urea Nitrogen 4 mg/dL (9-16); Calcium 9.8 mg/dL (8.4-10.2); Carbon Dioxide 26 mmol/L (22-29); Chloride 105 mmol/L (96-108); Estimated Glomerular Filt Rate > 60; Glucose Random 91 mg/dL (60-115); HCG Quantitative < 2 mIU/mL; Magnesium 1.7 mg/dL (1.6-2.6); Phosphorus 3.3 mg/dL (2.7-4.5); Potassium 4.8 mmol/L (3.3-5.1); Sodium 137 mmol/L (135-145); Total Protein 6.7 g/dL (6.5-8.0)
== END 2021-08-29 12:48 | disposition home or self-care (01) ==
LOC: HO.LAB 12:47
PROVIDERS: Visit Provider Nurse Practitioner Psychiatric/Mental Health
DX: F50.9 Eating disorder, unspecified (principal)
CPT/HCPCS: 80053; 80307; 81001; 83735; 84100; 84702; 85025

== ENCOUNTER 2021-09-01 17:53 | Inpatient (IN) | payer MEDICAID, OTHER, SELFPAY ==
[2021-09-01 18:00] VITALS: BP 102/59; PULSE 86; RESP 18; TEMP 36.7; O2SAT 99; BMI 18.6
[2021-09-01 18:39] LABS: Appearance Urine CLOUDY; Color Urine RED; Glucose Urine UA NEG (NEG); Leukocyte Esterase Urine TRACE (NEG); Nitrite Urine POS (NEG); PH 6.5 (5.0-8.0); Specific Gravity - Urine >= 1.030 (1.005-1.025); UACC Culture Trigger YES; Urine Blood 3+ (NEG); Urine Ketones 40 MG/DL (NEG); Urine Protein 2+ MG/DL (NEG-TRACE)
--- NOTE | 2021-09-01 18:45 | ED.PSYCH ---
HPI - Psych General Chief Complaint: Psychiatric Symptoms Stated Complaint: Crisis Time Seen by Provider: 09/01/21 18:03 Source: patient Mode of arrival: ambulatory Limitations: no limitations History of Present Illness HPI Narrative: Patient comes to the emergency room complaining of feeling both manic and depressed. Patient states that earlier today she calls the eating disorder clinic. Patient states that she has not been eating and has lost over 90 lb in over 6 months. Patient was told that he would be best if she can be evaluated at the emergency room. They will not be able to assess themselves the patient until her 1st visit, couple of months from now. Patient denies suicidal or homicidal ideation. Patient states that she is needs a few days inpatient to get back on track Related Data Previous Rx's Medication Instructions Recorded aripiprazole 10 mg tablet 10 mg PO BEDTIME #30 tab 06/06/21 bupropion HCl 150 mg 24 hr tablet, 150 mg PO DAILY #30 tab 06/06/21 extended release divalproex 500 mg tablet,extended 1,000 mg PO BEDTIME #60 tab 06/06/21 release 24 hr lorazepam 0.5 mg tablet 0.5 mg PO DAILY PRN #30 tab 06/06/21 trazodone 100 mg tablet 100 mg PO BEDTIME #30 tab 06/06/21 ciprofloxacin HCl 500 mg tablet 500 mg PO Q12H #14 tab 08/14/21 phenazopyridine 200 mg tablet 200 mg PO TID PRN #10 tab 08/14/21 (Pyridium) Allergies Allergy/AdvReac Type Severity Reaction Status Date / Time insect venom [MOSQUITO] Allergy Unknown UNKNOWN Verified 09/01/21 18:00 paliperidone [From INVEGA] Allergy Unknown DYSTONIC Verified 09/01/21 18:00 REACTION haloperidol [HALOPERIDOL] AdvReac Intermediate Dystonic Verified 09/01/21 18:00 reaction Review of Systems Review of Systems: Constitutional : No Weight loss, No Fever, No Chills, No Night Sweats, No Fatigue, No Malaise ENT/Mouth : No Hearing loss, No Ear Pain, No Nasal Congestion, No Sinus Pain, No Hoarseness, No sore throat, No Rhinorrhea, No Swallowing Difficulty Eyes: No Eye Pain, No Swelling, No Redness, No Foreign Body, No Discharge, No Vision Changes Cardiovascular : No Chest Pain, No SOB, No Dyspnea on Exertion, No Orthopnea, No Edema, No Palpitations Respiratory : No Cough, No Sputum, No Wheezing, No Smoke Exposure, No Dyspnea Gastrointestinal : No Nausea, No Vomiting, No Diarrhea, No Constipation, No abdominal Pain, No Hematochezia, No Melena Genitourinary : no irregular bleeding, No Dysuria, No Urinary Frequency, No Hematuria, No Urinary Incontinence, No Urgency, No Flank Pain, No Urinary Flow Changes, No Hesitancy Musculoskeletal : No joint pain, No Myalgias, No Joint Swelling Skin : No Skin Lesions, No rash Neuro : No Weakness, No Numbness, No Paresthesias, No Loss of Consciousness, No Dizziness, No Headache Psych : No SI, no HI, complaining of depression and feeling manic at the same time Heme/Lymph: No Bruising, No Bleeding,No Lymphadenopathy Endocrine : No Polyuria, No Polydipsia, No Temperature Intolerance PMFSH Past Medical History Medical History Anxiety Bipolar 1 disorder Bipolar 1 disorder, depressed, full remission Depression PTSD (post-traumatic stress disorder) PTSD (post-traumatic stress disorder) Social History Social History Household Members: Family Household Members Other:: Mom, sister, 2 brothers Housing: Apartment Do you presently have visiting nurse or other home services: No Alcohol intake: former Patient Tobacco Use Status: Former Tobacco user Quit Date: 02/11/2021 Tobacco use type: Cigarette Cigarettes Per Day: 3 Years Smoked: 2 years e-Cigarette/Vaping Use: Former Use Second Hand Smoke Exposure: Yes Substance Use Type: Crack/Cocaine, Marijuana and Other Advance Directives: No Advance Directives Information Provided: No service: No Sexual orientation: Lesbian/Garcia/Homosexual Physical Exam Vital Signs: Vital Signs: Last Vital Signs Temp 98.1 F 09/01/21 18:00 Pulse 86 09/01/21 18:00 Resp 18 09/01/21 18:00 BP 102/59 L 09/01/21 18:00 Pulse Ox 99 09/01/21 18:00 BMI result Body Mass Index 18.6 Const: Other: Appearance: Alert. Oriented X3. No acute distress. Eyes: Pupils equal, round and reactive to light. ENT: Pharynx normal. Neck: Normal inspection. Neck supple. No lymph nodes noted. No crepitus CVS: Normal heart rate and rhythm. Pulses normal. Normal S1 and S2 Respiratory: No respiratory distress. Breath sounds normal. No Wheezing. No rales Abdomen: Soft and nontender. No rigidity. No distention. Skin: Skin warm and dry. Normal skin color. Normal skin turgor. Extremities: No lower extremity edema. No Lacerations. No Rash Neuro: Oriented X 3. No motor deficit. No sensory deficit. Moving all extremities. No slurred speech. CN 2 through 12 grossly intact Psych: calm, cooperative, normal affect, coherent Course Course Course Narrative: Behavioral health network consult pending. Physician observation started at 18:50 [facility] - Psych Lab Data Labs: Lab Results 09/01/21 Range/Units 18:27 Urine Color RED A Urine Appearance CLOUDY Urine pH 6.5 (5.0-8.0) Ur Specific [place] >= 1.030 H (1.005-1.025) Urine Protein 2+ H (NEG-TRACE) MG/DL Urine Glucose (UA) NEG (NEG) MG/DL Urine Ketones 40 (NEG) MG/DL Urine Blood 3+ H (NEG) Urine Nitrite POS H (NEG) Ur Leukocyte Esterase TRACE H (NEG) Discharge Plan Discharge Clinical Impression: Bipolar disorder Patient Disposition: Still a Patient Prescriptions: No Action phenazopyridine [Pyridium] 200 mg tablet 200 mg PO TID PRN (Reason: pain) Qty: 10 0RF ciprofloxacin HCl 500 mg tablet 500 mg PO Q12H Qty: 14 0RF trazodone 100 mg Tablet 100 mg PO BEDTIME Qty: 30 0RF divalproex 500 mg Tablet Extended Release 24 Hr 1,000 mg PO BEDTIME Qty: 60 0RF aripiprazole 10 mg Tablet 10 mg PO BEDTIME Qty: 30 0RF bupropion HCl 150 mg Tablet Extended Release 24 Hr 150 mg PO DAILY Qty: 30 0RF lorazepam 0.5 mg tablet 0.5 mg PO DAILY PRN (Reason: Anxiety) Qty: 30 0RF
[2021-09-01 18:51] LABS: Amphetamine Screen Urine Not Detected (Not Detect); Barbiturates, Urine Not Detected (Not Detect); Benzodiazepines Screen Urine Not Detected (Not Detect); Cannabinoid Screen Urine POSITIVE (Not Detect); Cocaine Screen Urine Not Detected (Not Detect); Fentanyl, urine Not Detected (Not Detect); Opiate Screen Urine Not Detected (Not Detect); Phencyclidine Screen Urine Not Detected (Not Detect)
[2021-09-01 18:58] LABS: Bacteria Urine TRACE /LPF; Mucus Urine TRACE /LPF; RBC Urine TNTC /HPF (0); Squamous Epithelial Cell Urine 2+ /LPF
[2021-09-01 19:00] LABS: COVID-19 Test Negative (Negative)
[2021-09-01 19:29] LABS: Ethanol < 10 mg/dL
[2021-09-01 19:39] LABS: Valproate 101.7 mcg/mL (50.0-100.0)
[2021-09-01 22:21] LABS: UPreg QC Valid YES; Urine Pregnancy NEGATIVE (NEGATIVE)
--- NOTE | 2021-09-02 | ECG_ITS ---
Test Reason : medical clearance Blood Pressure : / mmHG Vent. Rate : 074 BPM Atrial Rate : 074 BPM P-R Int : 168 ms QRS Dur : 078 ms QT Int : 364 ms P-R-T Axes : 071 068 067 degrees QTc Int : 404 ms Normal sinus rhythm Normal ECG When compared with ECG of 10-JUL-2021 05:55, T wave inversion no longer evident in Anterior leads Referred By: Clementine Ford Electronically Signed By:CEASAR VIVAS
[2021-09-02 00:26] VITALS: BP 95/50; PULSE 90; RESP 15; TEMP 37.1; O2SAT 98
[2021-09-02] MEDS: LORazepam 0.5 MG TABLET PO (02:16)
[2021-09-02] MEDS: ARIPiprazole 10 MG TABLET PO ×2 (02:16→21:59)
[2021-09-02] MEDS: traZODone HCL 100 MG TABLET PO ×2 (02:16→21:59)
--- NOTE | 2021-09-02 06:30 | PC.NURSE ---
Patient slept one and half hours only whole date night caregiver, medication compliant, behavior calm and quiet at this time at time unpredictable, patient was assessed by care team, disposition is voluntary inpatient bed search, per care team patient is pre-accepted to M3 or M5, VSS, will continue to monitor.
--- NOTE | 2021-09-02 07:17 | PC.NURSE ---
patient remains asleep at present respirations are even and unlabored patient appears in no distress.
[2021-09-02 07:33] VITALS: BP 97/51; PULSE 71; RESP 16; TEMP 36.6; O2SAT 98
[2021-09-02] MEDS: buPROPion HCl XL 150 MG TAB.ER.24H PO (08:37)
[2021-09-02 15:07] LABS: MANUAL DIFF FLAG NO
[2021-09-02 15:17] LABS: Basophils Percent Auto 0.4 % (0-2); Eosinophils Percent Auto 0.6 % (0-4); Hematocrit 41.1 % (37.0-47.0); Hemoglobin 13.7 g/dl (12.0-16.0); Imm Gran Abs Auto 0.01 X10*3/uL (0.00-0.03); Imm Gran Pct Auto 0.2 % (0.0-0.4); Lymphocytes Absolute Auto 2.7 X10*3/uL (1.2-4.9); Lymphocytes Percent Auto 50.1 % (20-40); Mean Corpuscular HGB Conc 33.3 g/dl (31.0-35.0); Mean Corpuscular Hemoglobin 31.1 pg (27.0-33.0); Mean Corpuscular Volume 93.2 fL (80.0-98.0); Mean Platelet Volume 10.7 fL (9.4-12.3); Monocytes Absolute Auto 0.3 X10*3/uL (0.1-1.2); Monocytes Percent Auto 5.5 % (2-11); Neutrophils Absolute Auto 2.4 x10*3/uL (2.0-8.3); Neutrophils Percent Auto 43.2 % (45-73); Platelet Count 198 X10*3/uL (160-400); Red Blood Count 4.41 X10*6/uL (4.20-5.50); Red Cell Distribution Width 12.6 % (11.0-16.0); White Blood Count 5.5 X10*3/uL (4.8-10.8)
[2021-09-02 15:33] LABS: Alanine Aminotransferase 6 U/L (0-31); Albumin Level 4.1 g/dL (3.5-5.0); Alkaline Phosphatase 51 U/L (39-117); Anion Gap 12 (12-20); Aspartate Amino Transferase 16 U/L (5-31); Bilirubin Total 0.5 mg/dL (0.0-1.0); Blood Urea Nitrogen 5 mg/dL (9-16); Calcium 9.8 mg/dL (8.4-10.2); Carbon Dioxide 26 mmol/L (22-29); Chloride 104 mmol/L (96-108); Estimated Glomerular Filt Rate > 60; Glucose Fasting 104 mg/dL (60-99); Potassium 4.6 mmol/L (3.3-5.1); Sodium 137 mmol/L (135-145); Total Protein 7.2 g/dL (6.5-8.0)
[2021-09-02 16:45] VITALS: BP 93/53; PULSE 96; RESP 18; TEMP 36.1; O2SAT 99
[2021-09-02 18:11] VITALS: BMI 18.8
--- NOTE | 2021-09-02 18:44 | PC.ADMIT ---
Addendum entered by Lore Soliman 09/02/21 19:30: Patient was diagnosed w/ a UTI while in the ED and started on ABx therapy. Addendum entered by Lore Soliman 09/02/21 18:56: Patient signed a 3 day notice on arrival. Original Note: Patient is a 21 year old female [place] on a CV [place] [facility] [place] depression and disordered eating. Patient is admitted with a diagnosis of Bipolar disorder, mixed. She states that she brought herself to the ED for 'stabilization of manic symptoms.' She states that she recently completed an intake to be admitted to [facility]. In the process, she began to think about body image and all of the social repercussions of this and felt overwhelmed by the emotions this provoked. She denies SI or HI, but reports chronic, deep sadness. Patient denies AH/VH. She reports a history of restricting food intake, and has lost approximately 80 lbs since January 2021. Patient states that she only eats dinner, and only eats enough to prevent her from vomiting in the morning. She denies any other medical history. patient arrived dressed in a hospital carmelo, affect depressed at times. Speech was clear, somewhat rambling but easily refocused.
[2021-09-02] MEDS: Divalproex Sodium ER 250 MG TAB.ER.24H 750 MG PO (21:59)
[2021-09-03 08:11] VITALS: BP 92/55; PULSE 92; RESP 17; TEMP 36.7; O2SAT 100
[2021-09-03] MEDS: buPROPion HCl XL 150 MG TAB.ER.24H PO (08:13)
[2021-09-03 09:27] LABS: Alanine Aminotransferase 7 U/L (0-31); Albumin Level 4.2 g/dL (3.5-5.0); Alkaline Phosphatase 52 U/L (39-117); Anion Gap 13 (12-20); Aspartate Amino Transferase 16 U/L (5-31); Bilirubin Total 0.4 mg/dL (0.0-1.0); Blood Urea Nitrogen 6 mg/dL (9-16); Calcium 9.9 mg/dL (8.4-10.2); Carbon Dioxide 26 mmol/L (22-29); Chloride 103 mmol/L (96-108); Cholesterol 206 mg/dL; Creatinine Clr Calc Pharmacy 95.1; Estimated Glomerular Filt Rate > 60; Glucose Fasting 88 mg/dL (60-99); HDL Cholesterol 54 mg/dL; LDL Cholesterol Calculated 139 mg/dl; Potassium 4.8 mmol/L (3.3-5.1); Sodium 137 mmol/L (135-145); Total Protein 7.1 g/dL (6.5-8.0); Triglycerides 69 mg/dL
[2021-09-03] MEDS: Magnesium Hydrox/Alum Hydrox 30 ML ORAL.SUSP PO (09:39)
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
[2021-09-03 15:00] VITALS: BMI 18.8
--- NOTE | 2021-09-03 15:11 | MHC.CLN ---
RE: CONSULT PT IS MODERATELY MALNOURISHED PT REPORTS EATING ONLY ONE MEAL PER DAY SINCE 2020 AND RESTRICTING FOOD. PT REPORTED HX OF ANOREXIA AND DISORDERED EATING WITH 31% SIGNIFICANT WT LOSS X 6 MONTHS, BMI 18.8 PREVIOUS WT HX: 77KG (01/30/21) PT REPORTS UBW 135-140# WITH HX ANOREXIA AND DISORDERED EATING PT CONTACTED [facility] COORDINATOR R/T SIGNIFICANT WT LOSS DIET RX: REGULAR-APPROPRIATE WILL ADD ENSURE BID TO INCREASE KCALS IF PT WILL ACCEPT SUPP PROVIDES 700KCALS, 40GPROTEIN (MAY NEED TO POUR SUPP INTO CUP TO AVOID NUTRITION FACTS LABEL) WEEKLY WEIGHTS IF ABLE WITH PT FACING AWAY FROM SCALE (DO NOT SHARE AMOUNT WITH PT) STRICT PO INTAKE MONITOR RECOMMEND F/U WITH OUTPATIENT RD UPON DISCHARGE (OR [facility]) SEE FULL CLINICAL NUTRITION ASSESSMENT
[2021-09-03 20:23] VITALS: BP 90/57; PULSE 92; RESP 16; TEMP 36.4; O2SAT 98
[2021-09-03] MEDS: Divalproex Sodium ER 250 MG TAB.ER.24H 750 MG PO (22:20)
[2021-09-03] MEDS: ARIPiprazole 15 MG TABLET PO (22:21)
[2021-09-03] MEDS: traZODone HCL 100 MG TABLET PO (22:21)
[2021-09-04 07:00] VITALS: BMI 18.6
[2021-09-04] MEDS: buPROPion HCl XL 150 MG TAB.ER.24H PO (09:25)
[2021-09-04 09:38] VITALS: BP 108/57; PULSE 83; RESP 16; TEMP 36.4; O2SAT 100
--- NOTE | 2021-09-04 14:09 | P.PNPSI_ITS ---
Subjective Subjective Date of Service: 09/04/21 Reason For Visit: grave disability due to mental illness Interim History: loquacious, tangential. eating a moderate amount, feeling good about it. feeling more calm since increase in abilify last night. still wants to discharge tomorrow. no other complaints or requests. per staff, not eating all meals. anx 2/10, dep 0/10. denies SI/HI. feeling better. talkative. med- compliant. ate 50% dinner and 100% bfast. Mental Status Exam Mental Status Exam Narrative: A&O. Pt is in casual attire, short hair, thin body habitus, not malodorous. fair eye contact, attentive. No Tics or Tremors. No abnormal involuntary movements. cooperative, engaged. voluble, spontaneous speech with regular rate and rhythm, normal loudness and prosody. No prolonged speech latency or dysarthria. Mood is improved, affect is calm. no SI/HI/AVH expressed. Thoughts are tangential, no delusions or paranoia evident. No known cognitive or memory impairment. Insight/ Judgment impaired. Diagnostics Vital Signs (24Hr): Vital Signs - 24 hr 09/03/21 20:23 09/04/21 09:38 Temperature 97.6 F 97.6 F Pulse Rate 92 83 Respiratory Rate 16 16 Blood Pressure 90/57 L 108/57 L Pulse Oximetry 98 100 BMI result Body Mass Index 18.6 Labs Results: 09/02/21 15:01 09/03/21 08:46 Labs: Laboratory Results - last 48 hr 09/02/21 09/02/21 09/03/21 15:01 15:01 08:46 WBC 5.5 RBC 4.41 Hgb 13.7 Hct 41.1 MCV 93.2 MCH 31.1 MCHC 33.3 RDW 12.6 Plt Count 198 MPV 10.7 Immature Gran % (Auto) 0.2 Neut % (Auto) 43.2 L Lymph % (Auto) 50.1 H [place] % (Auto) 5.5 Eos % (Auto) 0.6 Baso % (Auto) 0.4 Lymph # (Auto) 2.7 [place] # (Auto) 0.3 Eos # (Auto) 0.0 Baso # (Auto) 0.0 Abs Immat Gran (auto) 0.01 Absolute Neuts (auto) 2.4 Absolute Nucleated RBC 0.000 Nucleated RBC % (auto) 0.0 Sodium 137 137 Potassium 4.6 4.8 Chloride 104 103 Carbon Dioxide 26 26 Anion Gap 12 13 BUN 5 L 6 L Creatinine 0.74 0.78 Estim Creat Clear Calc 99.0 95.1 Estimated GFR > 60 > 60 Fasting Glucose 104 H 88 Calcium 9.8 9.9 Total Bilirubin 0.5 0.4 AST 16 16 ALT 6 7 Alkaline Phosphatase 51 52 Total Protein 7.2 7.1 Albumin 4.1 4.2 Triglycerides 69 Cholesterol 206 D LDL Cholesterol, Calc 139 HDL Cholesterol 54 Medications Medications Current Medications Acetaminophen (Acetaminophen 325 Mg Tablet) 650 mg PO Q6H PRN PRN Reason: Headache/Pain Mild Scale (1-3) Al Hydroxide/Mg Hydroxide (Magnesium Hydrox/Alum Hydrox 30 Ml Oral.Susp) 30 ml PO Q6H PRN PRN Reason: Heartburn/Nausea Last Admin: 09/03/21 09:39 Dose: 30 ml Documented by: Aripiprazole (Aripiprazole 15 Mg Tablet) 15 mg PO BEDTIME [facility] Last Admin: 09/03/21 22:21 Dose: 15 mg Documented by: Bupropion HCl (Bupropion Hcl Xl 150 Mg Tab.Er.24h) 150 mg PO DAILY [facility] Last Admin: 09/04/21 09:25 Dose: 150 mg Documented by: Cefuroxime Axetil (Cefuroxime Axetil 250 Mg Tablet) 250 mg PO BID [facility] Last Admin: 09/04/21 09:25 Dose: 250 mg Documented by: Divalproex Sodium (Divalproex Sodium Er 250 Mg Tab.Er.24h) 750 mg PO BEDTIME [facility] Last Admin: 09/03/21 22:20 Dose: 750 mg Documented by: Hydroxyzine HCl (Hydroxyzine Hcl 25 Mg Tablet) 25 mg PO BEDTIME PRN PRN Reason: Anxiety Lorazepam (Lorazepam 0.5 Mg Tablet) 0.5 mg PO DAILY PRN PRN Reason: Anxiety Last Admin: 09/02/21 02:16 Dose: 0.5 mg Documented by: Magnesium Hydroxide (Milk Of Magnesia 30 Ml Oral.Susp) 30 ml PO DAILY PRN PRN Reason: Constipation Trazodone HCl (Trazodone Hcl 100 Mg Tablet) 100 mg PO BEDTIME [facility] Last Admin: 09/03/21 22:21 Dose: 100 mg Documented by: Allergies Allergies Allergy/AdvReac Type Severity Reaction Status Date / Time insect venom [MOSQUITO] Allergy Unknown UNKNOWN Verified 09/01/21 18:00 paliperidone [From INVEGA] Allergy Unknown DYSTONIC Verified 09/01/21 18:00 REACTION haloperidol [HALOPERIDOL] AdvReac Intermediate Dystonic Verified 09/01/21 18:00 reaction Assessment & Plan Assessment & Plan (1) Bipolar I disorder with depression: Status: Acute Code(s): F31.9 - Bipolar disorder, unspecified (2) Eating disorder: Status: Acute Code(s): F50.9 - Eating disorder, unspecified Plan decreased VPA 1000 QHS to 750 QHS at admission 09/02 due to level of 107. recheck at discharge. increased abilify from 10 QHS to 15 QHS as of 09/03 to address hypomania. pt reports calmer with this change. continued home meds otherwise. support in adequate PO intake. 3-day in, matures 09/05. discharge 09/05. I spent ___25___ minutes with the patient and/or on the patient floor today, greater than?50% of which was spent counseling/coordinating care. Reason for contiued inpatient stay Substantial Risk for: inability to function and rapid decompensation
--- NOTE | 2021-09-04 18:45 | PC.NURSE ---
Pt was observed to be laying with her roommate in the same bed. Pt and roommate were redirected and limits were set about maintaining personal space. It was reported by staff on checks that pt and her roommate were sitting on the same bed again after being redirected. This RN and Miri Goodman Rn spoke with the patient and moved PT's roommate into another, pt challenging limits stating you wouldn't be doing this if we were males, you're just here to make us upset .
--- NOTE | 2021-09-04 19:37 | PC.NURSE ---
At 1900, pt was singing in the hallway and an MHA asked pt if she could lower her voice. Pt got frustrated and went into the group room and slammed the door. When MHA approached her, pt started getting very agitated why are you telling me I can't sing, I sing all the time and no one has an issue with it. Pt became upset with MHA's tone of voice and started holding her head and crying. This RN approached pt and took her to the sensory room. She immediately apologized and said I didn't mean to be disrespectful, I just felt like he was targeting me and I don't know why. The way he was talking to me just made me really upset. After talking with pt, she remained in behavioral control and apologized for her behavior. She said she feels safe on the unit, denies SI/HI.
[2021-09-04 20:24] LABS: Valproate 92.1 mcg/mL (50.0-100.0)
[2021-09-04 21:38] VITALS: BP 106/60; PULSE 98; RESP 17; TEMP 36.7; O2SAT 97
[2021-09-04] MEDS: Divalproex Sodium ER 250 MG TAB.ER.24H 750 MG PO (22:27)
[2021-09-04] MEDS: traZODone HCL 100 MG TABLET PO (22:27)
[2021-09-04] MEDS: ARIPiprazole 15 MG TABLET PO (22:27)
[2021-09-05 08:41] VITALS: BP 100/57; PULSE 80; RESP 16; TEMP 36.7; O2SAT 99
[2021-09-05] MEDS: buPROPion HCl XL 150 MG TAB.ER.24H PO (08:52)
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
== END 2021-09-05 11:03 | disposition home or self-care (01) | DRG 753 ==
LOC: HO.ED 09-02 10:55 → HO.PADLT16 09-02 16:28
PROVIDERS: Physician Assistant; Admitting Provider Psychiatry & Neurology Psychiatry; Emergency Provider Emergency Medicine; Visit Provider Psychiatry & Neurology Psychiatry
DX: F31.9 Bipolar disorder, unspecified (principal); F50.9 Eating disorder, unspecified; F17.210 Nicotine dependence, cigarettes, uncomplicated; Z20.822 Contact with and (suspected) exposure to COVID-19; Z68.1 Body mass index [BMI] 19.9 or less, adult; Z91.52 Personal history of nonsuicidal self-harm; Z79.899 Other long term (current) drug therapy
CPT/HCPCS: 36415; 80053; 80061; 80164; 80307; 81001; 81025; 82077; 85025; 87086; 87635; 93005; 99285

== ENCOUNTER 2021-10-08 20:14 | Inpatient (IN) | payer MEDICAID, OTHER, SELFPAY ==
[2021-10-08 20:30] VITALS: BP 109/60; PULSE 81; RESP 18; TEMP 37; O2SAT 99; BMI 19.3
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
[2021-10-08 21:15] LABS: MANUAL DIFF FLAG NO
[2021-10-08 21:16] LABS: Basophils Percent Auto 0.1 % (0-2); Eosinophils Percent Auto 0.3 % (0-4); Hematocrit 39.4 % (37.0-47.0); Imm Gran Abs Auto 0.02 X10*3/uL (0.00-0.03); Imm Gran Pct Auto 0.2 % (0.0-0.4); Lymphocytes Absolute Auto 3.6 X10*3/uL (1.2-4.9); Lymphocytes Percent Auto 40.7 % (20-40); Monocytes Absolute Auto 0.5 X10*3/uL (0.1-1.2); Monocytes Percent Auto 5.1 % (2-11); Neutrophils Absolute Auto 4.7 x10*3/uL (2.0-8.3); Neutrophils Percent Auto 53.6 % (45-73); Platelet Count 267 X10*3/uL (160-400); Red Blood Count 4.19 X10*6/uL (4.20-5.50); Red Cell Distribution Width 12.1 % (11.0-16.0); White Blood Count 8.8 X10*3/uL (4.8-10.8)
[2021-10-08 21:17] LABS: Appearance Urine CLEAR; Color Urine YELLOW; Glucose Urine UA NEG (NEG); Leukocyte Esterase Urine NEG (NEG); Nitrite Urine NEG (NEG); PH 6.5 (5.0-8.0); Specific Gravity - Urine <= 1.005 (1.005-1.025); Urine Blood NEG (NEG); Urine Ketones NEG (NEG); Urine Protein NEG (NEG-TRACE)
[2021-10-08 21:28] LABS: Anion Gap 13 (12-20); Blood Urea Nitrogen 5 mg/dL (9-16); Calcium 10.3 mg/dL (8.4-10.2); Carbon Dioxide 24 mmol/L (22-29); Chloride 103 mmol/L (96-108); Creatinine Clr Calc Pharmacy 104.7; Estimated Glomerular Filt Rate > 60; Glucose Random 78 mg/dL (60-115); Sodium 136 mmol/L (135-145)
[2021-10-08 21:29] LABS: COVID-19 Test Negative (Negative)
[2021-10-08 21:30] LABS: UPreg QC Valid YES; Urine Pregnancy NEGATIVE (NEGATIVE)
[2021-10-08 23:08] LABS: Amphetamine Screen Urine Not Detected (Not Detect); Barbiturates, Urine Not Detected (Not Detect); Benzodiazepines Screen Urine Not Detected (Not Detect); Cannabinoid Screen Urine POSITIVE (Not Detect); Cocaine Screen Urine Not Detected (Not Detect); Fentanyl, urine Not Detected (Not Detect); Opiate Screen Urine Not Detected (Not Detect); Phencyclidine Screen Urine Not Detected (Not Detect)
[2021-10-09] MEDS: Ketorolac Tromethamine 15 MG/ML VIAL IM (02:34)
--- NOTE | 2021-10-09 02:46 | PC.NURSE ---
Right gum pain 02/16, provider notified/assessed/ordered Ketorolac 15 mg Im/administered as ordered/pateint compliant/pending effect, will continue to monitor.
[2021-10-09 03:45] VITALS: BP 100/57; PULSE 65; RESP 16; TEMP 36.7; O2SAT 100
[2021-10-09] MEDS: LORazepam 0.5 MG TABLET PO ×3 (06:01→18:08)
--- NOTE | 2021-10-09 06:56 | PC.NURSE ---
Patient was up whole night, listening music, prn Ativan 0.5 mg administered as ordered with + effect, patient currently in bed appears sleeping, behavior appropriate, engaged well with [facility] clincian, disposition section 12 inpatient bed search, VSS, will continue to monitor.
--- NOTE | 2021-10-09 07:19 | PC.NURSE ---
patient appears to remain asleep respirations are even and unlabored patient appears in no distress
[2021-10-09 07:45] VITALS: BP 99/48; PULSE 74; RESP 18; TEMP 36.7; O2SAT 100
[2021-10-09] MEDS: buPROPion HCl XL 150 MG TAB.ER.24H PO (08:47)
--- NOTE | 2021-10-09 14:00 | PC.NURSE ---
Pt seen this date for individual OT tx session. Pt is alert and receptive to engaging in conversation. Pt denies any SI, HI, or depression this afternoon. She reports feeling bored and frustrated expressing remorse for specking to her mother that way as well as upsetting her little sister. Pt does state My brother is so stupid I'd like to punch him in the face . Following brief interview pts affect become more bright and wishes to talk longer. Pt demos some insight as to her situation stating I don't think I shouldn't go home like this I'll just end up right back here . Pt wishes to be admitted for further tx. Pt has head phones and is able to listen to music as this is a significant interest of hers, she is provided with sensory tool, coloring pages, and word finds to occupy her time/mind for duration of her stay in POD. Pt is receptive to all activities presented.
[2021-10-09] MEDS: traZODone HCL 100 MG TABLET PO (21:36)
[2021-10-09] MEDS: Divalproex Sodium ER 250 MG TAB.ER.24H 750 MG PO (21:36)
[2021-10-09] MEDS: ARIPiprazole 15 MG TABLET PO (21:36)
[2021-10-10 00:02] VITALS: BP 99/58; PULSE 57; RESP 16; O2SAT 100
--- NOTE | 2021-10-10 06:13 | PC.NURSE ---
Patient slept through the night, no distress observed/reported, behavior appropriate and non concerning, medication compliant, disposition per [facility] is section 12 inpatient bed search, vss, contracted for the safety, will continue to monitor.
--- NOTE | 2021-10-10 08:02 | PC.NURSE ---
Awake and having breakfast. Interacting appropriately with staff.
[2021-10-10] MEDS: buPROPion HCl XL 150 MG TAB.ER.24H PO (08:29)
[2021-10-10 10:23] VITALS: BP 97/61; PULSE 73; RESP 16; TEMP 36.8; O2SAT 100
[2021-10-10 13:11] LABS: COVID-19 Test Negative (Negative); IDNOW Serial# 9DD0AD1C
[2021-10-10] MEDS: LORazepam 0.5 MG TABLET PO ×2 (14:40→21:28)
[2021-10-10 17:40] VITALS: BP 99/53; PULSE 69; RESP 16; TEMP 36.6; O2SAT 100
--- NOTE | 2021-10-10 17:42 | PC.ADMIT ---
21yoF admitted from [facility] for manic behavior and medication non-compliance. Pt states she comes to the hospital a few times per year for help with her mental illness. She reports she is taking medications but not like I'm supposed to, not sleeping, having anger outbursts, and urges to self harm. She endorses HI towards her brothers, urges to punch herself to get the anger out , and experiencing AH/VH at night of shadows and strange noises. She denies SI. She reports smoking marijuana daily, occasional etoh, 4 cigarettes daily, and denies other illicit substances. Pt oriented to the unit, signed paperwork, belongings returned.
[2021-10-10] MEDS: Acetaminophen 325 MG TABLET 650 MG PO (17:43)
[2021-10-10 17:48] VITALS: BMI 19.2
[2021-10-10] MEDS: Nicotine Polacrilex 2 MG GUM BUCCAL (17:48)
[2021-10-10] MEDS: ARIPiprazole 15 MG TABLET PO (21:22)
[2021-10-10] MEDS: Divalproex Sodium ER 250 MG TAB.ER.24H 750 MG PO (21:22)
[2021-10-10] MEDS: traZODone HCL 100 MG TABLET PO (21:22)
[2021-10-10 21:32] VITALS: BP 96/57; PULSE 94; TEMP 36.6; O2SAT 97
[2021-10-11] MEDS: Acetaminophen 325 MG TABLET 650 MG PO ×2 (02:06→22:54)
[2021-10-11] MEDS: Nicotine Polacrilex 2 MG GUM BUCCAL ×3 (02:16→20:48)
[2021-10-11] MEDS: LORazepam 0.5 MG TABLET PO ×4 (03:28→22:50)
[2021-10-11 08:00] LABS: Alanine Aminotransferase 8 U/L (0-31); Albumin Level 3.8 g/dL (3.5-5.0); Alkaline Phosphatase 45 U/L (39-117); Anion Gap 10 (12-20); Aspartate Amino Transferase 15 U/L (5-31); Bilirubin Total 0.3 mg/dL (0.0-1.0); Blood Urea Nitrogen 3 mg/dL (9-16); Calcium 9.7 mg/dL (8.4-10.2); Carbon Dioxide 26 mmol/L (22-29); Chloride 106 mmol/L (96-108); Cholesterol 157 mg/dL; Creatinine Clr Calc Pharmacy 109.9; Estimated Glomerular Filt Rate > 60; Glucose Fasting 90 mg/dL (60-99); HDL Cholesterol 43 mg/dL; LDL Cholesterol Calculated 107 mg/dl; Potassium 4.1 mmol/L (3.3-5.1); Sodium 138 mmol/L (135-145); Total Protein 6.2 g/dL (6.5-8.0); Triglycerides 39 mg/dL
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
[2021-10-11] MEDS: buPROPion HCl XL 150 MG TAB.ER.24H PO (08:35)
[2021-10-11 08:37] VITALS: BP 103/54; PULSE 85; RESP 17; TEMP 36.6; O2SAT 99
[2021-10-11 20:42] VITALS: BP 93/55; PULSE 96; TEMP 36.9; O2SAT 99
[2021-10-11] MEDS: Divalproex Sodium ER 250 MG TAB.ER.24H 750 MG PO (20:48)
[2021-10-11] MEDS: ARIPiprazole 15 MG TABLET PO (20:48)
[2021-10-11] MEDS: traZODone HCL 100 MG TABLET PO (22:50)
[2021-10-12] MEDS: buPROPion HCl XL 150 MG TAB.ER.24H PO (08:45)
[2021-10-12] MEDS: LORazepam 0.5 MG TABLET PO (08:45)
[2021-10-12 08:46] VITALS: BP 109/55; PULSE 108; RESP 17; TEMP 36.6; O2SAT 97
[2021-10-12 09:41] LABS: Valproate 48.4 mcg/mL (50.0-100.0)
--- NOTE | 2021-10-12 09:47 | HO.PSYCHPN ---
Subjective Subjective Date of Service: 10/12/21 Reason For Visit: todd Subjective Notes: Conditional Voluntary and 3 Day Healthcare Proxy: No Guardianship: No Medical Problems Affecting Mental Status: No Interim History: Patient was seen and discussed in rounds today. Records and plans were reviewed. She has been showing some signs of hypomania with some hyperactivity, singing. But things leveled off during the day yesterday and she is doing better. She slept adequately. She states the Ativan has not been helpful with her anxiety for more than a couple hours and previously she did better on Klonopin which I will order at 0.5 mg daily p.r.n. and discontinue the Ativan. Depakote level was drawn this morning but not back yet. Questions about several of her medications discussed. Even though she has signed a 3 day notice she is probably going to be willing to stay through and getting more stable. Labs were reviewed with low BUN Review of Systems Review of Systems Yes all other systems are reviewed and are negative Mental Status Exam Mental Status Exam Narrative: In today's visit she is alert, oriented and pleasant. Normal speech. Good eye contact. No signs of motor restlessness. Affect is appropriate and contained. No signs of psychosis. She denies any suicidal or homicidal ideations. Cognitively is intact. Thought processes are coherent. Judgment is intact. Diagnostics Vital Signs (24Hr): Vital Signs - 24 hr 10/11/21 20:42 10/12/21 08:46 Temperature 98.5 F 97.8 F Pulse Rate 96 108 H Respiratory Rate 17 Blood Pressure 93/55 L 109/55 L Pulse Oximetry 99 97 BMI result Body Mass Index 19.2 Labs Results: 10/08/21 21:07 10/11/21 07:06 Labs: Laboratory Results - last 48 hr 10/10/21 10/11/21 10/12/21 12:36 07:06 08:22 Sodium 138 Potassium 4.1 Chloride 106 Carbon Dioxide 26 Anion Gap 10 L BUN 3 L Creatinine 0.69 Estim Creat Clear Calc 109.9 Estimated GFR > 60 Fasting Glucose 90 Calcium 9.7 Total Bilirubin 0.3 AST 15 ALT 8 Alkaline Phosphatase 45 Total Protein 6.2 L Albumin 3.8 Triglycerides 39 Cholesterol 157 D LDL Cholesterol, Calc 107 HDL Cholesterol 43 D Valproic Acid 48.4 L COVID-19 (SIENNA) Negative COVID-19 Clin Com See Note Medications Medications Current Medications Acetaminophen (Acetaminophen 325 Mg Tablet) 650 mg PO Q6H PRN PRN Reason: Headache/Pain Mild Scale (1-3) Last Admin: 10/11/21 22:54 Dose: 650 mg Documented by: Al Hydroxide/Mg Hydroxide (Magnesium Hydrox/Alum Hydrox 30 Ml Oral.Susp) 30 ml PO Q6H PRN PRN Reason: Heartburn/Nausea Aripiprazole (Aripiprazole 15 Mg Tablet) 15 mg PO BEDTIME [facility] Last Admin: 10/11/21 20:48 Dose: 15 mg Documented by: Bupropion HCl (Bupropion Hcl Xl 150 Mg Tab.Er.24h) 150 mg PO DAILY [facility] Last Admin: 10/12/21 08:45 Dose: 150 mg Documented by: Divalproex Sodium (Divalproex Sodium Er 250 Mg Tab.Er.24h) 750 mg PO BEDTIME [facility] Last Admin: 10/11/21 20:48 Dose: 750 mg Documented by: Hydroxyzine HCl (Hydroxyzine Hcl 25 Mg Tablet) 25 mg PO BEDTIME PRN PRN Reason: Anxiety Lorazepam (Lorazepam 0.5 Mg Tablet) 0.5 mg PO Q6H PRN PRN Reason: Anxiety Last Admin: 10/12/21 08:45 Dose: 0.5 mg Documented by: Magnesium Hydroxide (Milk Of Magnesia 30 Ml Oral.Susp) 30 ml PO DAILY PRN PRN Reason: Constipation Nicotine Polacrilex (Nicotine Polacrilex 2 Mg Gum) 2 mg BUCCAL Q2H PRN PRN Reason: Nicotine Cravings Last Admin: 10/11/21 20:48 Dose: 2 mg Documented by: Trazodone HCl (Trazodone Hcl 100 Mg Tablet) 100 mg PO BEDTIME [facility] Last Admin: 10/11/21 22:50 Dose: 100 mg Documented by: Trazodone HCl (Trazodone Hcl 50 Mg Tablet) 50 mg PO BEDTIME PRN PRN Reason: Insomnia Allergies Allergies Allergy/AdvReac Type Severity Reaction Status Date / Time insect venom [MOSQUITO] Allergy Unknown UNKNOWN Verified 09/01/21 18:00 paliperidone [From INVEGA] Allergy Unknown DYSTONIC Verified 09/01/21 18:00 REACTION haloperidol [HALOPERIDOL] AdvReac Intermediate Dystonic Verified 09/01/21 18:00 reaction Assessment & Plan Assessment & Plan (1) Bipolar 1 disorder with moderate todd: Status: Acute Code(s): F31.12 - Bipolar disorder, current episode manic without psychotic features, moderate Plan In conclusion it appears that she has been having some mood fluctuations and some hypomanic symptoms of her medications which were resumed including Abilify, Wellbutrin SR 150 mg and Depakote ER 750 mg. She does have p.r.n. medications for anxiety. Depakote level was ordered. She will meet with her treatment team on 10/13/2021. Contacts to be made with her treaters. 10/12: Continue current regimen and plans with discontinuation of Ativan and start taking Klonopin 0.5 mg p.r.n. I spent minutes with the patient and/or on the patient floor today, greater than?50% of which was spent counseling/coordinating care. Patient educated on: medication risk/benefits Reason for contiued inpatient stay Substantial Risk for: med/psych decompensation
[2021-10-12] MEDS: clonazePAM 0.5 MG TABLET PO (14:39)
[2021-10-12 20:33] VITALS: BP 82/61; PULSE 107; RESP 18; TEMP 36.7; O2SAT 98
[2021-10-12] MEDS: traZODone HCL 100 MG TABLET PO (20:37)
[2021-10-12] MEDS: Divalproex Sodium ER 250 MG TAB.ER.24H 750 MG PO (20:37)
[2021-10-12] MEDS: ARIPiprazole 15 MG TABLET PO (20:37)
[2021-10-13] MEDS: hydrOXYzine HCL 25 MG TABLET PO (01:10)
[2021-10-13] MEDS: clonazePAM 0.5 MG TABLET PO ×2 (06:16→20:54)
[2021-10-13 09:07] VITALS: BP 84/58; PULSE 84; RESP 16; TEMP 36.8; O2SAT 100
[2021-10-13] MEDS: buPROPion HCl XL 150 MG TAB.ER.24H PO (09:07)
--- NOTE | 2021-10-13 13:08 | HO.PSYCHPN ---
Subjective Subjective Date of Service: 10/13/21 Reason For Visit: todd Subjective Notes: 3 Day Interim History: Pt reports she was not taking abilify nor depakote prior to admission. She reports feeling irritable, hypertalkative, racing thoughts which she identifies as s/s of todd. She denies VH/AH. Today, she denies any plan or intent to hurt her brother or herself. She is taking depakote and abilify again. She wants to be discharged soon She is eating well- no food restriction noted (alleged anorexia nerviosa) Review of Systems Review of Systems Constitutional : No Weight loss, No Fever, No Chills, No Fatigue, No Malaise ENT/Mouth : No sore throat, No Rhinorrhea Eyes: No Eye Pain, No Swelling, No Redness Cardiovascular : No Chest Pain, No SOB, No Dyspnea on Exertion, No Orthopnea, No Edema, No Palpitations Respiratory : No Cough, No Sputum, No Wheezing Gastrointestinal : No Nausea, No Vomiting, No Diarrhea, No Constipation, No abdominal Pain, No Hematochezia, No Melena Genitourinary : No Dysuria, No Urinary Frequency, No Hematuria, Musculoskeletal : No joint pain, No Myalgias, No Joint Swelling Skin : No Skin Lesions, No rash Neuro : No Weakness, No Numbness, No Dizziness, No Headache Psych : + Anxiety/Panic, No Depression, No SI, + HI All other systems reviewed and are negative Yes all other systems are reviewed and are negative Mental Status Exam Mental Status Exam Narrative: Appearance: casually groomed, good hygiene in NAD Behavior:cooperative psychomotor: no agitation or retardation noted Speech:clear, regular rate/rhythm/spontaneous Thought process:linear, no loose association nor extensive flight of ideas noted Thought content: no overt psychosis, wanting to go back home soon Mood: good Affect: some mild expansive mood but no overt labile mood SI:denies HI:denies VH/AH: none Delusions:none Insight/judgment: improving x 2. Memory/cog: alert, oriented x 3. Diagnostics Vital Signs (24Hr): Vital Signs - 24 hr 10/12/21 20:33 10/13/21 09:07 Temperature 98.1 F 98.3 F Pulse Rate 107 H 84 Respiratory Rate 18 16 Blood Pressure 82/61 L 84/58 L Pulse Oximetry 98 100 BMI result Body Mass Index 19.2 Labs Results: 10/08/21 21:07 10/11/21 07:06 Labs: Laboratory Results - last 48 hr 10/12/21 08:22 Valproic Acid 48.4 L Medications Medications Current Medications Acetaminophen (Acetaminophen 325 Mg Tablet) 650 mg PO Q6H PRN PRN Reason: Headache/Pain Mild Scale (1-3) Last Admin: 10/11/21 22:54 Dose: 650 mg Documented by: Al Hydroxide/Mg Hydroxide (Magnesium Hydrox/Alum Hydrox 30 Ml Oral.Susp) 30 ml PO Q6H PRN PRN Reason: Heartburn/Nausea Aripiprazole (Aripiprazole 15 Mg Tablet) 15 mg PO BEDTIME GAVIOTA Last Admin: 10/12/21 20:37 Dose: 15 mg Documented by: Bupropion HCl (Bupropion Hcl Xl 150 Mg Tab.Er.24h) 150 mg PO DAILY GAVIOTA Last Admin: 10/13/21 09:07 Dose: 150 mg Documented by: Clonazepam (Clonazepam 0.5 Mg Tablet) 0.5 mg PO DAILY PRN PRN Reason: Anxiety Last Admin: 10/13/21 06:16 Dose: 0.5 mg Documented by: Divalproex Sodium (Divalproex Sodium Er 250 Mg Tab.Er.24h) 750 mg PO BEDTIME GAVI[place] Last Admin: 10/12/21 20:37 Dose: 750 mg Documented by: Hydroxyzine HCl (Hydroxyzine Hcl 25 Mg Tablet) 25 mg PO BEDTIME PRN PRN Reason: Anxiety Last Admin: 10/13/21 01:10 Dose: 25 mg Documented by: Magnesium Hydroxide (Milk Of Magnesia 30 Ml Oral.Susp) 30 ml PO DAILY PRN PRN Reason: Constipation Nicotine Polacrilex (Nicotine Polacrilex 2 Mg Gum) 2 mg BUCCAL Q2H PRN PRN Reason: Nicotine Cravings Last Admin: 10/11/21 20:48 Dose: 2 mg Documented by: Trazodone HCl (Trazodone Hcl 100 Mg Tablet) 100 mg PO BEDTIME G[place] Last Admin: 10/12/21 20:37 Dose: 100 mg Documented by: Trazodone HCl (Trazodone Hcl 50 Mg Tablet) 50 mg PO BEDTIME PRN PRN Reason: Insomnia Allergies Allergies Allergy/AdvReac Type Severity Reaction Status Date / Time insect venom [MOSQUITO] Allergy Unknown UNKNOWN Verified 09/01/21 18:00 paliperidone [From INVEGA] Allergy Unknown DYSTONIC Verified 09/01/21 18:00 REACTION haloperidol [HALOPERIDOL] AdvReac Intermediate Dystonic Verified 09/01/21 18:00 reaction Assessment & Plan Assessment & Plan (1) Bipolar 1 disorder with moderate todd: Status: Acute Code(s): F31.12 - Bipolar disorder, current episode manic without psychotic features, moderate Plan In conclusion it appears that she has been having some mood fluctuations and some hypomanic symptoms of her medications which were resumed including Abilify, Wellbutrin SR 150 mg and Depakote ER 750 mg. She does have p.r.n. medications for anxiety. Depakote level was ordered. She will meet with her treatment team on 10/13/2021. Contacts to be made with her treaters. 10/12: Continue current regimen and plans with discontinuation of Ativan and start taking Klonopin 0.5 mg p.r.n. 10/13 continue current medications. No SI/HI/VH/AH. I spent minutes with the patient and/or on the patient floor today, greater than?50% of which was spent counseling/coordinating care. Reason for contiued inpatient stay Substantial Risk for: stable for discharge
--- NOTE | 2021-10-13 16:06 | MHC.CLN ---
NUTRITION PATIENT WITH HX ANOREXIA. TRIGGERS SIGNIFICANT WEIGHT LOSS X ONE YEAR, -26%. REPORTED TO THIS PEC[employer] SHELLER THAT SHE IS EATING BETTER, EATING 3 MEALS PER DAY, AND IS WORKING OUT. NO ADDITIONAL NUTRITION INTERVENTIONS AT THIS TIME. FOLLOW WEIGHTS AND INTAKE.
[2021-10-13 16:10] VITALS: BMI 19.2
[2021-10-13 17:40] LABS: Valproate 59.3 mcg/mL (50.0-100.0)
[2021-10-13 21:04] VITALS: BP 107/53; PULSE 83; RESP 18; TEMP 36.6; O2SAT 99
[2021-10-13] MEDS: traZODone HCL 100 MG TABLET PO (23:11)
[2021-10-13] MEDS: ARIPiprazole 15 MG TABLET PO (23:11)
[2021-10-13] MEDS: Divalproex Sodium ER 250 MG TAB.ER.24H 750 MG PO (23:11)
[2021-10-14 09:00] VITALS: BP 89/51; PULSE 93; RESP 16; TEMP 36.3; O2SAT 99
[2021-10-14] MEDS: buPROPion HCl XL 150 MG TAB.ER.24H PO (09:47)
[2021-10-14] MEDS: clonazePAM 0.5 MG TABLET PO (09:49)
--- NOTE | 2021-10-14 11:24 | P.PNPSI_ITS ---
Subjective Subjective Date of Service: 10/14/21 Reason For Visit: todd Subjective Notes: Conditional Voluntary and 3 Day Interim History: Pt reports sleeping and eating better. She continues to denied suicidal or homicidal ideation. However, she reports not trusting her mother at this time to give her the money she receives from [employer]. She reports she wants to stay with her aunt for few days before going to her house. No SI/HI. Less hyperverbal, less labile. Medication Compliance: Yes Side effects from medications: No Review of Systems Review of Systems Constitutional : No Weight loss, No Fever, No Chills, No Fatigue, No Malaise ENT/Mouth : No sore throat, No Rhinorrhea Eyes: No Eye Pain, No Swelling, No Redness Cardiovascular : No Chest Pain, No SOB, No Dyspnea on Exertion, No Orthopnea, No Edema, No Palpitations Respiratory : No Cough, No Sputum, No Wheezing Gastrointestinal : No Nausea, No Vomiting, No Diarrhea, No Constipation, No abdominal Pain, No Hematochezia, No Melena Genitourinary : No Dysuria, No Urinary Frequency, No Hematuria, Musculoskeletal : No joint pain, No Myalgias, No Joint Swelling Skin : No Skin Lesions, No rash Neuro : No Weakness, No Numbness, No Dizziness, No Headache Psych : + Anxiety/Panic, No Depression, No SI, + HI All other systems reviewed and are negative Yes all other systems are reviewed and are negative Mental Status Exam Mental Status Exam Narrative: Appearance: casually groomed, good hygiene in NAD Behavior:cooperative psychomotor: no agitation or retardation noted Speech:clear, regular rate/rhythm/spontaneous Thought process:linear, no loose association nor extensive flight of ideas noted Thought content: no overt psychosis, wanting to go back home soon Mood: good Affect: some mild expansive mood but no overt labile mood SI:denies HI:denies VH/AH: none Delusions:none Insight/judgment: improving x 2. Memory/cog: alert, oriented x 3. Diagnostics Vital Signs (24Hr): Vital Signs - 24 hr 10/14/21 20:05 10/15/21 08:10 Temperature 97.8 F 97.4 F Pulse Rate 111 H 84 Respiratory Rate 16 Blood Pressure 82/42 L 98/50 L Pulse Oximetry 100 Oxygen Delivery Method Room Air BMI result Body Mass Index 19.2 Labs Results: 10/08/21 21:07 10/11/21 07:06 Labs: Laboratory Results - last 48 hr 10/13/21 16:47 Valproic Acid 59.3 Medications Medications Current Medications Acetaminophen (Acetaminophen 325 Mg Tablet) 650 mg PO Q6H PRN PRN Reason: Headache/Pain Mild Scale (1-3) Last Admin: 10/11/21 22:54 Dose: 650 mg Al Hydroxide/Mg Hydroxide (Magnesium Hydrox/Alum Hydrox 30 Ml Oral.Susp) 30 ml PO Q6H PRN PRN Reason: Heartburn/Nausea Aripiprazole (Aripiprazole 15 Mg Tablet) 15 mg PO BEDTIME GAVIOTA Last Admin: 10/14/21 20:22 Dose: 15 mg Bupropion HCl (Bupropion Hcl Xl 150 Mg Tab.Er.24h) 150 mg PO DAILY G[place] Last Admin: 10/15/21 08:17 Dose: 150 mg Clonazepam (Clonazepam 0.5 Mg Tablet) 0.5 mg PO DAILY PRN PRN Reason: Anxiety Last Admin: 10/15/21 08:27 Dose: 0.5 mg Divalproex Sodium (Divalproex Sodium Er 250 Mg Tab.Er.24h) 750 mg PO BEDTIME GAVIOTA Last Admin: 10/14/21 20:21 Dose: 750 mg Hydroxyzine HCl (Hydroxyzine Hcl 25 Mg Tablet) 25 mg PO BEDTIME PRN PRN Reason: Anxiety Last Admin: 10/13/21 01:10 Dose: 25 mg Magnesium Hydroxide (Milk Of Magnesia 30 Ml Oral.Susp) 30 ml PO DAILY PRN PRN Reason: Constipation Nicotine Polacrilex (Nicotine Polacrilex 2 Mg Gum) 2 mg BUCCAL Q2H PRN PRN Reason: Nicotine Cravings Last Admin: 10/14/21 14:48 Dose: 2 mg Trazodone HCl (Trazodone Hcl 100 Mg Tablet) 100 mg PO BEDTIME G[place] Last Admin: 10/14/21 20:23 Dose: 100 mg Trazodone HCl (Trazodone Hcl 50 Mg Tablet) 50 mg PO BEDTIME PRN PRN Reason: Insomnia Allergies Allergies Allergy/AdvReac Type Severity Reaction Status Date / Time insect venom [MOSQUITO] Allergy Unknown UNKNOWN Verified 09/01/21 18:00 paliperidone [From INVEGA] Allergy Unknown DYSTONIC Verified 09/01/21 18:00 REACTION haloperidol [HALOPERIDOL] AdvReac Intermediate Dystonic Verified 09/01/21 18:00 reaction Assessment & Plan Assessment & Plan (1) Bipolar 1 disorder with moderate todd: Status: Acute Code(s): F31.12 - Bipolar disorder, current episode manic without psychotic features, moderate Plan In conclusion it appears that she has been having some mood fluctuations and some hypomanic symptoms of her medications which were resumed including Abilify, Wellbutrin SR 150 mg and Depakote ER 750 mg. She does have p.r.n. medications for anxiety. Depakote level was ordered. She will meet with her treatment team on 10/13/2021. Contacts to be made with her treaters. 10/12: Continue current regimen and plans with discontinuation of Ativan and start taking Klonopin 0.5 mg p.r.n. 10/13 continue current medications. No SI/HI/VH/AH. 10/14 continue current medications. No SI/HI/VH/AH. dc tomorrow. I spent minutes with the patient and/or on the patient floor today, greater than?50% of which was spent counseling/coordinating care. Reason for contiued inpatient stay Substantial Risk for: stable for discharge
[2021-10-14] MEDS: Nicotine Polacrilex 2 MG GUM BUCCAL (14:48)
[2021-10-14 20:05] VITALS: BP 82/42; PULSE 111; TEMP 36.6
[2021-10-14] MEDS: Divalproex Sodium ER 250 MG TAB.ER.24H 750 MG PO (20:21)
[2021-10-14] MEDS: ARIPiprazole 15 MG TABLET PO (20:22)
[2021-10-14] MEDS: traZODone HCL 100 MG TABLET PO (20:23)
[2021-10-15 08:10] VITALS: BP 98/50; PULSE 84; RESP 16; TEMP 36.3; O2SAT 100
[2021-10-15] MEDS: buPROPion HCl XL 150 MG TAB.ER.24H PO (08:17)
[2021-10-15] MEDS: clonazePAM 0.5 MG TABLET PO (08:27)
--- NOTE | 2021-10-15 11:34 | PM.PSYDC ---
DS: Providers Provider Date of Service: 10/15/21 Date of admission: 10/10/21 15:42 Primary care physician: None Physician DS: Diagnosis Discharge Diagnosis (1) Bipolar 1 disorder with moderate todd: Status: Acute DS: Medications Discharge Medications Home Medications: Previous Rx's Medication Instructions Recorded bupropion HCl 150 mg 24 hr tablet, 150 mg PO DAILY #30 tabs 06/06/21 extended release lorazepam 0.5 mg tablet 0.5 mg PO DAILY PRN Anxiety #30 06/06/21 tabs trazodone 100 mg tablet 100 mg PO BEDTIME #30 tabs 06/06/21 aripiprazole 15 mg tablet 15 mg PO BEDTIME 30 days #30 tabs 09/05/21 divalproex 250 mg tablet,extended 750 mg PO BEDTIME 30 days #90 tabs 09/05/21 release 24 hr Mental Status Exam Mental Status Exam Narrative: Appearance: casually groomed, good hygiene in NAD Behavior:cooperative psychomotor: no agitation or retardation noted Speech:clear, regular rate/rhythm/spontaneous Thought process:linear, no loose association nor extensive flight of ideas noted Thought content: no overt psychosis, wanting to go back home soon Mood: good Affect: some mild expansive mood but no overt labile mood SI:denies HI:denies VH/AH: none Delusions:none Insight/judgment: improving x 2. Memory/cog: alert, oriented x 3. Data Data Completed and Pending Completed studies during hospitalization [Text1]: 10/08/21 10/08/21 10/08/21 21:00 21:00 21:00 WBC RBC Hgb Hct MCV MCH MCHC RDW Plt Count MPV Immature Gran % (Auto) Neut % (Auto) Lymph % (Auto) [place] % (Auto) Eos % (Auto) Baso % (Auto) Lymph # (Auto) [place] # (Auto) Eos # (Auto) Baso # (Auto) Abs Immat Gran (auto) Absolute Neuts (auto) Absolute Nucleated RBC Nucleated RBC % (auto) Sodium Potassium Chloride Carbon Dioxide Anion Gap BUN Creatinine Estim Creat Clear Calc Estimated GFR Random Glucose Fasting Glucose Calcium Total Bilirubin AST ALT Alkaline Phosphatase Total Protein Albumin Triglycerides Cholesterol LDL Cholesterol, Calc HDL Cholesterol Urine Color Urine Appearance Urine pH Ur Specific [place] Urine Protein Urine Glucose (UA) Urine Ketones Urine Blood Urine Nitrite Ur Leukocyte Esterase Urine Test NEGATIVE Urine Opiates Screen Not Detected Urine Fentanyl Screen Not Detected Ur Barbiturates Screen Not Detected Valproic Acid Ur Phencyclidine Scrn Not Detected Ur Amphetamines Screen Not Detected U Benzodiazepines Scrn Not Detected Urine Cocaine Screen Not Detected U Marijuana (THC) Screen POSITIVE H COVID-19 (SIENNA) Negative COVID-19 Clin Com See Note 10/08/21 10/08/21 10/08/21 21:00 21:07 21:07 WBC 8.8 RBC 4.19 L Hgb 13.0 Hct 39.4 MCV 94.0 MCH 31.0 MCHC 33.0 RDW 12.1 Plt Count 267 D MPV 10.0 Immature Gran % (Auto) 0.2 Neut % (Auto) 53.6 Lymph % (Auto) 40.7 H [place] % (Auto) 5.1 Eos % (Auto) 0.3 Baso % (Auto) 0.1 Lymph # (Auto) 3.6 [place] # (Auto) 0.5 Eos # (Auto) 0.0 Baso # (Auto) 0.0 Abs Immat Gran (auto) 0.02 Absolute Neuts (auto) 4.7 Absolute Nucleated RBC 0.000 Nucleated RBC % (auto) 0.0 Sodium 136 Potassium 4.0 Chloride 103 Carbon Dioxide 24 Anion Gap 13 BUN 5 L Creatinine 0.73 Estim Creat Clear Calc 104.7 Estimated GFR > 60 Random Glucose 78 Fasting Glucose Calcium 10.3 H Total Bilirubin AST ALT Alkaline Phosphatase Total Protein Albumin Triglycerides Cholesterol LDL Cholesterol, Calc HDL Cholesterol Urine Color YELLOW Urine Appearance CLEAR Urine pH 6.5 Ur Specific [place] <= 1.005 Urine Protein NEG Urine Glucose (UA) NEG Urine Ketones NEG Urine Blood NEG Urine Nitrite NEG Ur Leukocyte Esterase NEG Urine Test Urine Opiates Screen Urine Fentanyl Screen Ur Barbiturates Screen Valproic Acid Ur Phencyclidine Scrn Ur Amphetamines Screen U Benzodiazepines Scrn Urine Cocaine Screen U Marijuana (THC) Screen COVID-19 (SIENNA) COVID-19 Clin Com 10/10/21 10/11/21 10/12/21 12:36 07:06 08:22 WBC RBC Hgb Hct MCV MCH MCHC RDW Plt Count MPV Immature Gran % (Auto) Neut % (Auto) Lymph % (Auto) [place] % (Auto) Eos % (Auto) Baso % (Auto) Lymph # (Auto) [place] # (Auto) Eos # (Auto) Baso # (Auto) Abs Immat Gran (auto) Absolute Neuts (auto) Absolute Nucleated RBC Nucleated RBC % (auto) Sodium 138 Potassium 4.1 Chloride 106 Carbon Dioxide 26 Anion Gap 10 L BUN 3 L Creatinine 0.69 Estim Creat Clear Calc 109.9 Estimated GFR > 60 Random Glucose Fasting Glucose 90 Calcium 9.7 Total Bilirubin 0.3 AST 15 ALT 8 Alkaline Phosphatase 45 Total Protein 6.2 L Albumin 3.8 Triglycerides 39 Cholesterol 157 D LDL Cholesterol, Calc 107 HDL Cholesterol 43 D Urine Color Urine Appearance Urine pH Ur Specific [place] Urine Protein Urine Glucose (UA) Urine Ketones Urine Blood Urine Nitrite Ur Leukocyte Esterase Urine Test Urine Opiates Screen Urine Fentanyl Screen Ur Barbiturates Screen Valproic Acid 48.4 L Ur Phencyclidine Scrn Ur Amphetamines Screen U Benzodiazepines Scrn Urine Cocaine Screen U Marijuana (THC) Screen COVID-19 (SIENNA) Negative COVID-19 Clin Com See Note 10/13/21 16:47 WBC RBC Hgb Hct MCV MCH MCHC RDW Plt Count MPV Immature Gran % (Auto) Neut % (Auto) Lymph % (Auto) [place] % (Auto) Eos % (Auto) Baso % (Auto) Lymph # (Auto) [place] # (Auto) Eos # (Auto) Baso # (Auto) Abs Immat Gran (auto) Absolute Neuts (auto) Absolute Nucleated RBC Nucleated RBC % (auto) Sodium Potassium Chloride Carbon Dioxide Anion Gap BUN Creatinine Estim Creat Clear Calc Estimated GFR Random Glucose Fasting Glucose Calcium Total Bilirubin AST ALT Alkaline Phosphatase Total Protein Albumin Triglycerides Cholesterol LDL Cholesterol, Calc HDL Cholesterol Urine Color Urine Appearance Urine pH Ur Specific [place] Urine Protein Urine Glucose (UA) Urine Ketones Urine Blood Urine Nitrite Ur Leukocyte Esterase Urine Test Urine Opiates Screen Urine Fentanyl Screen Ur Barbiturates Screen Valproic Acid 59.3 Ur Phencyclidine Scrn Ur Amphetamines Screen U Benzodiazepines Scrn Urine Cocaine Screen U Marijuana (THC) Screen COVID-19 (SIENNA) COVID-19 Clin Com DS: Summary Hospital Course Hospital Course: HPI: Subjective Notes: Conditional Voluntary Healthcare Proxy: No Guardianship: No Medical Problems Affecting Mental Status: No Narrative: Lauren is a 21-year-old single woman who is still in school, having last finished 11th grade.? This is 1 of many psychiatric hospitalizations.? She was last hospitalized here about 2 weeks ago.? She was brought to the emergency room because of increased level of mood dysregulation, stating that she has been manic for the past 2 weeks, accompanied by hyperactivity, restlessness, racing thoughts, decreased sleep and not feeling settled at any given time and jumping from 1 thing to another.? She has not been very compliant with her medications.? Initially they try to seek help from the outpatient providers but finally decided to bring her in.? She is on Abilify 15 mg, Wellbutrin SR 150 mg, Depakote ER 750 mg and hydroxyzine 25 mg q.h.s. p.r.n..? She states that she lost most of her medications and does not know where and corroborates the fact that she has been off her medications.? She has not been having any suicidal ideations or self-destructive behaviors.? She has also been more irritable and angry an almost ?lost it? with her brother.? She is [facility] at [facility].? She does have history of daily marijuana use.? No other substances.? She has had suicidal ideations but no attempts.? She has had self-destructive behaviors in her teens. HOSPITAL COURSE On the unit, Ms. Porter was admitted on a CV and placed on 15 minutes checks for safety. She initially presented with expansive affect, hyperverbal, no overt delusional content reported. She did admit not taking mood stabilizer. After discussing risks, benefits and alternative treatment options, she agreed to continue depakote, abilify which was increased to 15 mg daily, continue on low dose of wellbutrin but educated on how this medication can destabilize mood worsen hypomania/todd. Her affect was brighter, no overly bright, less hyperverbal. Her thought process more logical and coherent. She denied SI/HI. She reported improved sleep and appetite. No signs of aggression towards self or others. She denies VH/AH. She is able to return to her mom's house but wants to stay few days with aunt. No safety concerns reported by family on discharge. Status at Discharge Cognitive/behavioral status at discharge: Pt with brighter, less expansive affect. Less hyperverbal, no overt psychosis, or delusional content reported. No SI/HI. No AH/VH No signs of aggression towards self or others. Time Spent with Patient Time attestation: Total time spent providing and/or coordinating discharge services: Discharge Plan Discharge Patient Disposition: Home Health Service Discharge Diagnosis: Bipolar disorder type 1 Referrals: MAURICIO EVANS [Other] - 10/20/21 4:45 pm MAURICIO EVANS [Other] - 10/27/21 4:45 pm (IN HOME) ANEL HERNANDEZ, PSYCHIAT[facility] [Other] - 10/20/21 11:40 am (TELEHEALTH) [facility] [Physician] - 1 Week Discharge Medications: New nicotine (polacrilex) 2 mg Gum 2 mg buccal Q2H PRN (Reason: Nicotine Cravings) Qty: 30 0RF clonazepam 0.5 mg Tablet 0.5 mg PO DAILY PRN (Reason: Anxiety) Qty: 30 0RF trazodone 100 mg Tablet 100 mg PO BEDTIME Qty: 30 0RF aripiprazole 15 mg Tablet 15 mg PO BEDTIME Qty: 30 0RF divalproex 250 mg Tablet Extended Release 24 Hr 750 mg PO BEDTIME Qty: 90 0RF bupropion HCl 150 mg Tablet Extended Release 24 Hr 150 mg PO DAILY Qty: 30 0RF hydroxyzine HCl 25 mg Tablet 25 mg PO BEDTIME PRN (Reason: Anxiety) Qty: 30 0RF Discontinued aripiprazole 15 mg Tablet 15 mg PO BEDTIME 30 Days Qty: 30 0RF divalproex 250 mg Tablet Extended Release 24 Hr 750 mg PO BEDTIME 30 Days Qty: 90 0RF trazodone 100 mg Tablet 100 mg PO BEDTIME Qty: 30 0RF bupropion HCl 150 mg Tablet Extended Release 24 Hr 150 mg PO DAILY Qty: 30 0RF lorazepam 0.5 mg tablet 0.5 mg PO DAILY PRN (Reason: Anxiety) Qty: 30 0RF Discharge Orders: Discharge Order (Routine); Ordered 10/15/21 Ordered By: Farrah Torres Activity on Discharge: As tolerated Stand Alone Forms: Patient Portal Discharge page, Community Support Care Plan Goals: 1. maintain mood 2. No SI/HI Health Concerns: follow up with PCP Plan of Treatment: 1. take medications as prescribed 2. go to nearest ED or call 911 in event of emergency Assessment: Pt with mildly expanded affect but no overt todd. Much less hyperverbal, less flight of ideas. NO SI/HI. sleeping and eating well. No signs of aggression towards self or others. Discharge Date/Time: 10/15/21 13:31
--- NOTE | 2021-10-15 14:39 | PC.NURSE ---
Patient is pleasant and cooperative. Patient reports being ready for discharge. Patient is in agreement with discharge and discharge instructions. Patient denies SI/HI/AH/VH. Patient feels safe to leave. Patient denies physical complaints at this time.
== END 2021-10-15 13:31 | disposition home health service (06) | DRG 753 ==
LOC: HO.ED 10-10 11:37 → HO.PADLT16 10-10 16:04
PROVIDERS: Physician Assistant; Psychiatry & Neurology Psychiatry; Admitting Provider Psychiatry & Neurology Psychiatry; Emergency Provider Emergency Medicine; Visit Provider Social Worker
DX: F31.12 Bipolar disorder, current episode manic without psychotic features, moderate (principal); F17.210 Nicotine dependence, cigarettes, uncomplicated; F43.10 Post-traumatic stress disorder, unspecified; Z91.52 Personal history of nonsuicidal self-harm; Z20.822 Contact with and (suspected) exposure to COVID-19; Z71.6 Tobacco abuse counseling; Z88.8 Allergy status to other drugs, medicaments and biological substances; Z79.899 Other long term (current) drug therapy
CPT/HCPCS: 36415; 80048; 80053; 80061; 80164; 80307; 81003; 81025; 85025; 87635; 96372; 99285; J1885

== ENCOUNTER 2021-12-24 14:19 | Emergency (ER) | payer MEDICAID, SELFPAY ==
--- NOTE | 2021-12-24 15:06 | ED_ITS ---
HPI - Psych General Stated Complaint: crisis Time Seen by Provider: 12/24/21 14:40 Source: patient Mode of arrival: ambulatory Limitations: no limitations History of Present Illness MD complaint: suicidal ideation and feels depressed Onset (ago): month(s) (1) Duration: changing over time History of same: Yes Relieving factors: none Exacerbating factors: other Context: not taking psychiatric medications (x 1 month) Associated psychiatric symptoms: depression and suicidal ideation Associated symptoms: denies other symptoms Treatments prior to arrival: none If self harm: admits thoughts of self harm Related Data Previous Rx's Medication Instructions Recorded aripiprazole 15 mg tablet 15 mg PO BEDTIME #30 tabs 10/15/21 bupropion HCl 150 mg 24 hr tablet, 150 mg PO DAILY #30 tabs 10/15/21 extended release clonazepam 0.5 mg tablet 0.5 mg PO DAILY PRN Anxiety #30 10/15/21 tabs divalproex 250 mg tablet,extended 750 mg PO BEDTIME #90 tabs 10/15/21 release 24 hr hydroxyzine HCl 25 mg tablet 25 mg PO BEDTIME PRN Anxiety #30 10/15/21 tabs nicotine (polacrilex) 2 mg gum 2 mg buccal Q2H PRN Nicotine 10/15/21 Cravings #30 ea trazodone 100 mg tablet 100 mg PO BEDTIME #30 tabs 10/15/21 Allergies Allergy/AdvReac Type Severity Reaction Status Date / Time insect venom [MOSQUITO] Allergy Unknown UNKNOWN Verified 09/01/21 18:00 paliperidone [From INVEGA] Allergy Unknown DYSTONIC Verified 09/01/21 18:00 REACTION haloperidol [HALOPERIDOL] AdvReac Intermediate Dystonic Verified 09/01/21 18:00 reaction Review of Systems Review of Systems: Constitutional : No Fever, No Chills ENT/Mouth : No Ear Pain, No Nasal Congestion, No sore throat Eyes: No Eye Pain, No Swelling, No Redness Cardiovascular : No Chest Pain, No SOB Respiratory : No Cough, No Sputum, No Dyspnea Gastrointestinal : No Nausea, No Vomiting, No Diarrhea, No Hematochezia, No Melena Genitourinary : No Dysuria, No Urinary Frequency, No Hematuria Musculoskeletal : No Myalgias Skin : No Skin Lesions, No rash Neuro : No Weakness, No Numbness, No Paresthesias, No Dizziness, No Headache Psych : positive Anxiety, positive Depression, positive SI no HI Heme/Lymph: No Lymphadenopathy Endocrine : No Polyuria, No Polydipsia All other systems reviewed and are negative [facility] Past Medical History Attestation statement: The following information was validated with the patient. Medical History Anxiety Bipolar 1 disorder Bipolar 1 disorder, depressed, full remission Bipolar disorder Depression PTSD (post-traumatic stress disorder) Social History Social History Household Members: Family Household Members Other:: Mom, sister, 2 brothers Housing: Apartment Do you presently have visiting nurse or other home services: No Alcohol intake: current Alcohol intake frequency: a few times a month Alcohol type: beer, wine and hard liquor Patient Tobacco Use Status: Current everyday Tobacco user Tobacco use type: Cigarette Cigarettes Per Day: 4 Years Smoked: 2 years e-Cigarette/Vaping Use: Never Used Second Hand Smoke Exposure: Yes Substance Use Type: Marijuana Advance Directives: No Advance Directives Information Provided: No service: No Sexual orientation: Lesbian/Garcia/Homosexual Physical Exam Vital Signs: Appearance: Alert. Oriented X3. No acute distress. depressed appearing Eyes: Pupils equal, round and reactive to light. ENT: Pharynx normal. Neck: Normal inspection. Neck supple. CVS: Normal heart rate and rhythm. Pulses normal. Respiratory: No respiratory distress. Breath sounds normal. Abdomen: Soft and nontender. Skin: Skin warm and dry. Normal skin color. Normal skin turgor. Extremities: No lower extremity edema. No calf ttp Neuro: Oriented X 3. No motor deficit. No sensory deficit. CN2-12 intact Course Course Course Narrative: signed out to María MARINA MDM - Psych MDM Narrative Medical decision making narrative: 21 yo female with hx of bipolar and eating disorder comes in with depression and SI states she has been off of her medications x 1 month at this time labs and BHN consult ordered. Dispo per results and BHN input Lab Data Labs: Lab Results 12/24/21 12/24/21 Range/Units 14:54 14:54 Urine Test NEGATIVE (NEGATIVE) COVID-19 (SIENNA) Negative (Negative) COVID-19 Clin Com See Note Discharge Plan Discharge Clinical Impression: Depression Patient Disposition: Still a Patient Prescriptions: No Action nicotine (polacrilex) 2 mg Gum 2 mg buccal Q2H PRN (Reason: Nicotine Cravings) Qty: 30 0RF clonazepam 0.5 mg Tablet 0.5 mg PO DAILY PRN (Reason: Anxiety) Qty: 30 0RF trazodone 100 mg Tablet 100 mg PO BEDTIME Qty: 30 0RF aripiprazole 15 mg Tablet 15 mg PO BEDTIME Qty: 30 0RF divalproex 250 mg Tablet Extended Release 24 Hr 750 mg PO BEDTIME Qty: 90 0RF bupropion HCl 150 mg Tablet Extended Release 24 Hr 150 mg PO DAILY Qty: 30 0RF hydroxyzine HCl 25 mg Tablet 25 mg PO BEDTIME PRN (Reason: Anxiety) Qty: 30 0RF
[2021-12-24 15:14] LABS: UPreg QC Valid YES; Urine Pregnancy NEGATIVE (NEGATIVE)
[2021-12-24 15:21] LABS: COVID-19 Test Negative (Negative); IDNOW Serial# 16C4AD1C
[2021-12-24 15:36] LABS: Appearance Urine Cloudy; Color Urine Yellow; Glucose Urine UA Negative (Negative); Leukocyte Esterase Urine Large (3+) (Negative); Nitrite Urine Negative (Negative); Specific Gravity - Urine 1.015 (1.005-1.025); Urine Blood Negative (Negative); Urine Ketones Negative (Negative); Urine Protein Negative (Neg-Trace)
[2021-12-24 16:02] LABS: Hemoglobin 13.8 g/dl (12.0-16.0); Mean Platelet Volume 10.1 fL (9.4-12.3); PLT CLUMP 1; SCAN SMEAR FLAG 1
[2021-12-24 16:04] LABS: Basophils Percent Auto 0.6 % (0-2); Eosinophils Percent Auto 0.3 % (0-4); Hematocrit 40.6 % (37.0-47.0); Imm Gran Abs Auto 0.02 X10*3/uL (0.00-0.03); Imm Gran Pct Auto 0.3 % (0.0-0.4); Lymphocytes Percent Auto 32.1 % (20-40); MANUAL DIFF FLAG SCAN; Mean Corpuscular Hemoglobin 30.9 pg (27.0-33.0); Mean Corpuscular Volume 90.8 fL (80.0-98.0); Monocytes Absolute Auto 0.3 X10*3/uL (0.1-1.2); Monocytes Percent Auto 4.4 % (2-11); Neutrophils Absolute Auto 3.9 x10*3/uL (2.0-8.3); Neutrophils Percent Auto 62.3 % (45-73); Red Blood Count 4.47 X10*6/uL (4.20-5.50)
[2021-12-24 16:09] LABS: Alanine Aminotransferase 9 U/L (0-31); Albumin Level 4.4 g/dL (3.5-5.0); Alkaline Phosphatase 63 U/L (39-117); Anion Gap 14 (12-20); Aspartate Amino Transferase 18 U/L (5-31); Bilirubin Direct 0.2 mg/dL (0.0-0.5); Bilirubin Total 0.4 mg/dL (0.0-1.0); Blood Urea Nitrogen 8 mg/dL (9-16); Calcium 9.9 mg/dL (8.4-10.2); Carbon Dioxide 28 mmol/L (22-29); Chloride 104 mmol/L (96-108); Estimated Glomerular Filt Rate > 60; Glucose Random 89 mg/dL (60-115); Potassium 5.1 mmol/L (3.3-5.1); Sodium 141 mmol/L (135-145); Total Protein 7.7 g/dL (6.5-8.0)
[2021-12-24 16:16] LABS: Valproate < 2.0 mcg/mL (50.0-100.0)
[2021-12-24 16:26] VITALS: BP 101/67; PULSE 70; RESP 18; TEMP 36.8; O2SAT 100; BMI 18.6
[2021-12-24 16:32] LABS: Platelet Count 224 X10*3/uL (160-400); White Blood Count 5.9 X10*3/uL (4.8-10.8)
[2021-12-24 16:35] LABS: SLIDE REVIEW VERIFIED
[2021-12-24 16:40] LABS: Bacteria Urine 4+ (None Seen); Hyaline Casts Urine 0-2 /LPF (0-2); RBC Urine 0-2 /HPF (0-2); UACC Culture Trigger YES
--- NOTE | 2021-12-25 | ECG_ITS ---
Test Reason : med clearance Blood Pressure : / mmHG Vent. Rate : 049 BPM Atrial Rate : 049 BPM P-R Int : 152 ms QRS Dur : 074 ms QT Int : 462 ms P-R-T Axes : 062 074 070 degrees QTc Int : 417 ms Sinus bradycardia with Premature atrial complexes Otherwise normal ECG When compared with ECG of 02-SEP-2021 09:19, Premature atrial complexes are now Present Vent. rate has decreased BY 25 BPM Referred By: Irvin Kumar Electronically Signed By:DAMIEN RAMIREZ
[2021-12-25 03:37] VITALS: BP 93/50; PULSE 81; RESP 15; TEMP 36.4; O2SAT 98
--- NOTE | 2021-12-25 07:00 | PC.NURSE ---
Patient slept through the night, no distress observed/reported, med rec completed/pending provider's approval, behavior appropriate, disposition per care team section 12 inpatient bed search, VSS, will continue to monitor.
--- NOTE | 2021-12-25 07:32 | PC.NURSE ---
patient appears to remain asleep at present respirations are even and unlabored patient appears in no distress
--- NOTE | 2021-12-25 09:30 | PHA.MEDREC ---
Pharmacy Consult ? Medication Reconciliation Pharmacy has completed the medication reconciliation. Reviewed med rec done by nursing
[2021-12-25 10:39] LABS: Fentanyl, urine Not Detected (Not Detect)
[2021-12-25 10:42] LABS: Opiate Screen Urine Not Detected (Not Detect)
[2021-12-25 10:48] LABS: Amphetamine Screen Urine Not Detected (Not Detect); Barbiturates, Urine Not Detected (Not Detect); Benzodiazepines Screen Urine Not Detected (Not Detect); Cannabinoid Screen Urine POSITIVE (Not Detect); Cocaine Screen Urine Not Detected (Not Detect); Phencyclidine Screen Urine Not Detected (Not Detect)
--- NOTE | 2021-12-25 15:15 | PC.NURSE ---
Pt seen this date for individual OT tx session. Pt presents with depressed affect and does not make eye contact with this magazine writer throughout brief conversation. However t is receptive to sensory tool.
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
== END 2021-12-25 21:39 | disposition home or self-care (01) ==
PROVIDERS: Physician Assistant; Emergency Provider Emergency Medicine
DX: F31.12 Bipolar disorder, current episode manic without psychotic features, moderate (principal); R45.851 Suicidal ideations; F43.10 Post-traumatic stress disorder, unspecified; F17.210 Nicotine dependence, cigarettes, uncomplicated; F12.90 Cannabis use, unspecified, uncomplicated; Z20.822 Contact with and (suspected) exposure to COVID-19; Z91.14 Patient's other noncompliance with medication regimen
CPT/HCPCS: 36415; 80048; 80076; 80164; 80307; 81001; 81025; 85025; 87086; 87635; 93005; 99284

== ENCOUNTER 2022-01-06 14:20 | Inpatient (IN) | payer MEDICAID, OTHER, SELFPAY ==
[2022-01-06 14:32] VITALS: BP 87/57; PULSE 101; RESP 18; TEMP 36.9; O2SAT 98; BMI 18.6
--- NOTE | 2022-01-06 15:18 | ED.PSYCH ---
HPI - Psych General Chief Complaint: Psychiatric Symptoms Stated Complaint: crisis Time Seen by Provider: 01/06/22 15:11 Source: patient Mode of arrival: ambulatory Limitations: no limitations History of Present Illness MD complaint: suicidal ideation and feels depressed Onset (ago): week(s) (1) Duration: getting worse History of same: Yes Relieving factors: none Exacerbating factors: other Context: not taking psychiatric medications and significant life stressor Associated psychiatric symptoms: depression and suicidal ideation Associated symptoms: denies other symptoms Treatments prior to arrival: none If self harm: admits thoughts of self harm Related Data Home Medications Medication Instructions Recorded Confirmed hydroxyzine HCl 25 mg tablet 1 tab PO BEDTIME PRN Anxiety 12/24/21 12/24/21 trazodone 100 mg tablet 1 tab PO BEDTIME PRN Insomnia 12/24/21 12/24/21 Previous Rx's Medication Instructions Recorded aripiprazole 15 mg tablet 15 mg PO BEDTIME #30 tabs 12/26/21 bupropion HCl 150 mg tablet,12 hr 150 mg PO DAILY #30 tabs 12/26/21 sustained-release (Wellbutrin SR) divalproex 250 mg tablet,extended 750 mg PO BEDTIME #90 tabs 12/26/21 release 24 hr Allergies Allergy/AdvReac Type Severity Reaction Status Date / Time insect venom [MOSQUITO] Allergy Unknown UNKNOWN Verified 09/01/21 18:00 paliperidone [From INVEGA] Allergy Unknown DYSTONIC Verified 09/01/21 18:00 REACTION haloperidol [HALOPERIDOL] AdvReac Intermediate Dystonic Verified 09/01/21 18:00 reaction Review of Systems Review of Systems: Constitutional : No Fever, No Chills ENT/Mouth : No Ear Pain, No Nasal Congestion, No sore throat Eyes: No Eye Pain, No Swelling, No Redness Cardiovascular : No Chest Pain, No SOB Respiratory : No Cough, No Sputum, No Dyspnea Gastrointestinal : No Nausea, No Vomiting, No Diarrhea, No Hematochezia, No Melena Genitourinary : No Dysuria, No Urinary Frequency, No Hematuria Musculoskeletal : No Myalgias Skin : No Skin Lesions, No rash Neuro : No Weakness, No Numbness, No Paresthesias, No Dizziness, No Headache Psych : positive Anxiety, positive Depression, positive SI no HI Heme/Lymph: No Lymphadenopathy Endocrine : No Polyuria, No Polydipsia All other systems reviewed and are negative PMFSH Past Medical History Attestation statement: The following information was validated with the patient. Medical History Anxiety Bipolar 1 disorder Bipolar 1 disorder, depressed, full remission Bipolar disorder Depression PTSD (post-traumatic stress disorder) Social History Social History Household Members: Family Household Members Other:: Mom, sister, 2 brothers Housing: Apartment Do you presently have visiting nurse or other home services: No Alcohol intake: current Alcohol intake frequency: a few times a month Alcohol type: beer, wine and hard liquor Patient Tobacco Use Status: Current everyday Tobacco user Tobacco use type: Cigarette Cigarettes Per Day: 4 Years Smoked: 2 years e-Cigarette/Vaping Use: Never Used Second Hand Smoke Exposure: Yes Substance Use Type: Marijuana service: No Sexual orientation: Lesbian/Garcia/Homosexual Physical Exam Vital Signs: Vital Signs: Last Vital Signs Temp 98.4 F 01/06/22 14:32 Pulse 101 H 01/06/22 14:32 Resp 18 01/06/22 14:32 BP 87/57 L 01/06/22 14:32 Pulse Ox 98 01/06/22 14:32 O2 Del Method 01/06/22 14:32 BMI result Body Mass Index 18.6 Appearance: Alert. Oriented X3. No acute distress. Eyes: Pupils equal, round and reactive to light. ENT: Pharynx normal. Neck: Normal inspection. Neck supple. CVS: Normal heart rate and rhythm. Pulses normal. Respiratory: No respiratory distress. Breath sounds normal. Abdomen: Soft and non-tender. Skin: Skin warm and dry. Normal skin color. Normal skin turgor. Extremities: No lower extremity edema. No calf ttp Neuro: Oriented X 3. No motor deficit. No sensory deficit. CN 2-12 intact Course Course Course Narrative: Physician observation started at 4pm Patient placed in physician observation because the patient needed more time for BHN to assess the need for psych admission. At the time observation was started the patient's vitals were stable, patient is alert and oriented, Neuro: nonfocal, CV RRR, Lungs clear, BP slightly soft asked for recheck patient has no medical complaints MDM - Psych MDM Narrative Medical decision making narrative: 21 yo female hx of bipolar and PTSD here with c/o SI and depression not taking her medications, will obtain labs and N consult Lab Data Labs: Lab Results 01/06/22 Range/Units 15:25 Urine Test NEGATIVE (NEGATIVE) Discharge Plan Discharge Clinical Impression: Depression Qualifiers: Depression Type: unspecified Qualified Code(s): F32.A - Depression, unspecified Patient Disposition: Still a Patient Prescriptions: No Action trazodone 100 mg tablet 1 tab PO BEDTIME PRN (Reason: Insomnia) hydroxyzine HCl 25 mg tablet 1 tab PO BEDTIME PRN (Reason: Anxiety) bupropion HCl [Wellbutrin SR] 150 mg tablet sustained-release 12 hr 150 mg PO DAILY Qty: 30 0RF aripiprazole 15 mg tablet 15 mg PO BEDTIME Qty: 30 0RF divalproex 250 mg tablet extended release 24 hr 750 mg PO BEDTIME Qty: 90 0RF
[2022-01-06 15:52] LABS: UPreg QC Valid YES; Urine Pregnancy NEGATIVE (NEGATIVE)
[2022-01-06 16:04] LABS: COVID-19 Test Negative (Negative); IDNOW Serial# 9DB6401D
[2022-01-06 16:09] LABS: Amphetamine Screen Urine Not Detected (Not Detect); Barbiturates, Urine Not Detected (Not Detect); Benzodiazepines Screen Urine Not Detected (Not Detect); Cannabinoid Screen Urine POSITIVE (Not Detect); Cocaine Screen Urine Not Detected (Not Detect); Fentanyl, urine Not Detected (Not Detect); Opiate Screen Urine Not Detected (Not Detect); Phencyclidine Screen Urine Not Detected (Not Detect)
[2022-01-06 16:14] LABS: Basophils Percent Auto 0.5 % (0-2); Eosinophils Percent Auto 0.3 % (0-4); Hematocrit 39.4 % (37.0-47.0); Hemoglobin 13.4 g/dl (12.0-16.0); Imm Gran Abs Auto 0.01 X10*3/uL (0.00-0.03); Imm Gran Pct Auto 0.2 % (0.0-0.4); Lymphocytes Absolute Auto 1.9 X10*3/uL (1.2-4.9); Lymphocytes Percent Auto 29.2 % (20-40); MANUAL DIFF FLAG NO; Mean Corpuscular Volume 91.2 fL (80.0-98.0); Mean Platelet Volume 9.2 fL (9.4-12.3); Monocytes Absolute Auto 0.3 X10*3/uL (0.1-1.2); Monocytes Percent Auto 4.1 % (2-11); Neutrophils Absolute Auto 4.2 x10*3/uL (2.0-8.3); Neutrophils Percent Auto 65.7 % (45-73); Platelet Count 262 X10*3/uL (160-400); Red Blood Count 4.32 X10*6/uL (4.20-5.50); White Blood Count 6.4 X10*3/uL (4.8-10.8)
[2022-01-06 16:35] LABS: Alanine Aminotransferase 12 U/L (0-31); Albumin Level 4.4 g/dL (3.5-5.0); Alkaline Phosphatase 62 U/L (39-117); Anion Gap 13 (12-20); Aspartate Amino Transferase 18 U/L (5-31); Bilirubin Direct 0.2 mg/dL (0.0-0.5); Bilirubin Total 0.3 mg/dL (0.0-1.0); Blood Urea Nitrogen 9 mg/dL (9-16); Calcium 9.9 mg/dL (8.4-10.2); Carbon Dioxide 29 mmol/L (22-29); Chloride 104 mmol/L (96-108); Creatinine Clr Calc Pharmacy 101.7; Estimated Glomerular Filt Rate > 60; Glucose Random 90 mg/dL (60-115); Magnesium 1.8 mg/dL (1.6-2.6); Potassium 4.9 mmol/L (3.3-5.1); Sodium 141 mmol/L (135-145); Total Protein 7.4 g/dL (6.5-8.0)
[2022-01-06 16:41] LABS: Valproate < 2.0 mcg/mL (50.0-100.0)
[2022-01-07] MEDS: traZODone HCL 100 MG TABLET PO (01:15)
--- NOTE | 2022-01-07 06:14 | PC.NURSE ---
Patient struggled falling sleep, Trazodone 100 mg po administered at 0115 with + effect, slept intermittently from 0200 am onwards, patient was assessed by care team, disposition voluntary inpatient bed search, VSS, behavior non concerning, med rec completed since patient is not compliant with her medication psych consult is made to review her medication and resume, will continue to monitor.
[2022-01-07 06:19] VITALS: BMI 18.6
[2022-01-07 06:27] VITALS: BP 99/55; PULSE 69; RESP 16; TEMP 36.9; O2SAT 98
--- NOTE | 2022-01-07 07:22 | ECG_ITS ---
Test Reason : MED CLEARANCE Blood Pressure : / mmHG Vent. Rate : 063 BPM Atrial Rate : 063 BPM P-R Int : 162 ms QRS Dur : 072 ms QT Int : 410 ms P-R-T Axes : 056 073 070 degrees QTc Int : 419 ms Sinus rhythm with marked sinus arrhythmia Otherwise normal ECG When compared with ECG of 25-DEC-2021 10:00, Premature atrial complexes are no longer Present Heart rate has increased Referred By: Dilia Reeves Electronically Signed By:DAMIEN RAMIREZ
--- NOTE | 2022-01-07 07:44 | PC.NURSE ---
patient appear to remain asleep at prsenty respirations are even and unlabored patient appears in no distress
[2022-01-07 10:11] VITALS: RESP 16
[2022-01-07 15:30] VITALS: BP 93/61; PULSE 88; RESP 16; TEMP 36.3; O2SAT 98
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
[2022-01-07 19:25] VITALS: BP 93/53; PULSE 88; RESP 16; TEMP 36.6; O2SAT 99
[2022-01-08] MEDS: traZODone HCL 50 MG TABLET PO (00:24)
[2022-01-08] MEDS: hydrOXYzine HCL 25 MG TABLET PO (00:24)
[2022-01-08 07:00] VITALS: BMI 18.2
[2022-01-08 09:04] VITALS: BP 84/54; PULSE 80; TEMP 36.8; O2SAT 99
[2022-01-08 09:08] LABS: Alanine Aminotransferase 15 U/L (0-31); Albumin Level 4.3 g/dL (3.5-5.0); Alkaline Phosphatase 62 U/L (39-117); Anion Gap 15 (12-20); Aspartate Amino Transferase 20 U/L (5-31); Bilirubin Total 0.7 mg/dL (0.0-1.0); Blood Urea Nitrogen 10 mg/dL (9-16); Calcium 9.9 mg/dL (8.4-10.2); Carbon Dioxide 26 mmol/L (22-29); Chloride 104 mmol/L (96-108); Cholesterol 206 mg/dL; Creatinine Clr Calc Pharmacy 93.5; Estimated Glomerular Filt Rate > 60; Glucose Fasting 93 mg/dL (60-99); HDL Cholesterol 68 mg/dL; LDL Cholesterol Calculated 130 mg/dl; Potassium 4.8 mmol/L (3.3-5.1); Sodium 140 mmol/L (135-145); Total Protein 7.3 g/dL (6.5-8.0); Triglycerides 43 mg/dL
[2022-01-08 09:48] LABS: Vitamin B12 384 pg/mL (200-900)
[2022-01-08 10:02] LABS: Estimated Average Glucose 97 mg/dL
[2022-01-08 10:20] VITALS: BP 96/59; PULSE 106
--- NOTE | 2022-01-08 12:33 | MHC.CLN ---
CONSULT PT WITH LOW BMI 18.6 IN ADDITION PT WITH HX ANOREXIA NERVOSA FAMILIAR WITH PT FROM PREVIOUS ADMISSIONS PT REPORTS SHE IS CURRENTLY NOT RESTRICTING FOOD. FOLLOWS LOW FIBER DIET BUT UNABLE TO GIVE CLEAR REASON; C/O CONSTIPATION APPETITE IS GOOD ON REGULAR DIET WT STABLE X 6 MONTHS, NO SIGNIFICANT WT CHANGES PREVIOUS WT HX: 52.1KG (08/14/21) MONITOR PO INTAKE CLOSELY CAN OFFER NUTRITION SUPPLEMENT MEAL REPLACEMENT IF NEEDED
--- NOTE | 2022-01-08 16:50 | P.PNPSI_ITS ---
Subjective Subjective Date of Service: 01/08/22 Reason For Visit: Paige Interim History: I spoke with pt this evening and upon interview she reports she has been non- adherent on meds, unable to say why other than not picking them up at the pharmacy. Says she came back to [facility] because ?I realized I needed to get back on my meds.? She does not want med changes from her previous regimen, ?I feel like theyre working? when she takes them. Pt is unable to identify other precipitating factors and says she just ?started feeling down? 2-3 weeks ago. She has noticeably lost weight, although denies restricting. Currently denies SI thoughts. No longer feels hurt by friendship that ended, which had prompted her last ED visit, acknowledges that she felt ?devastated and really really upset about it? but as time has passed she denies feeling hurt by this. Sx of depression include isolation, anhedonia, avolition, says ?I dont want to like be out in the world,? says she will do nothing, just stays in bed. Feels easily overwhelmed, ?like everything was a really big deal? and things feel ?really daunting.? Prior to this episode of depression, she says she was writing and organizing her life but now feels unable to perform these activities. Also feels ?directionless? and describes ?waves of just like hopelessness for my future and stuff.? She wants to go back to school at [employer], wants to graduate and obtain her GED and go to college to study music. Says her last hypomanic episode was about a month ago. Says all she feels like doing is sleeping but then doesnt feel well rested. Mental Status Exam Mental Status Exam Narrative: A&O. Pt is in casual attire, wearing hoodie, short hair, normal body habitus, not malodorous. Good eye contact, mostly attentive. No Tics or Tremors. No abnormal involuntary movements. Calm, cooperative, engaged, tearful at tomes. Non-pressured speech, however talkative, spontaneous with regular rate and rhythm, normal volume and prosody. No prolonged speech latency or dysarthria. Mood is ?depressed,? affect is calm. Denies SI/SIB/HI upon inquiry. Currently denies A/VH or delusional thought content. Thoughts are tangential, grandiose at times. No known cognitive or memory impairment. Insight/ Judgment limited but adequate. Diagnostics Vital Signs (24Hr): Vital Signs - 24 hr 01/07/22 19:25 01/08/22 09:04 01/08/22 10:20 Temperature 97.9 F 98.3 F Pulse Rate 88 80 106 H Respiratory Rate 16 Blood Pressure 93/53 L 84/54 L 96/59 L Pulse Oximetry 99 99 Oxygen Delivery Method Room Air Room Air BMI result Body Mass Index 18.2 Labs Results: 01/06/22 16:09 01/08/22 08:16 Labs: Laboratory Results - last 48 hr 01/08/22 01/08/22 01/08/22 08:16 08:16 08:16 Sodium 140 Potassium 4.8 Chloride 104 Carbon Dioxide 26 Anion Gap 15 BUN 10 Creatinine 0.77 Estim Creat Clear Calc 93.5 Estimated GFR > 60 Fasting Glucose 93 Estimat Average Glucose 97 Hemoglobin A1c % 5.0 Calcium 9.9 Total Bilirubin 0.7 AST 20 ALT 15 Alkaline Phosphatase 62 Total Protein 7.3 Albumin 4.3 Triglycerides 43 Cholesterol 206 D LDL Cholesterol, Calc 130 HDL Cholesterol 68 D Vitamin B12 384 TSH 1.40 Medications Medications Current Medications Acetaminophen (Acetaminophen 325 Mg Tablet) 650 mg PO Q6H PRN PRN Reason: Headache/Pain Mild Scale (1-3) Al Hydroxide/Mg Hydroxide (Magnesium Hydrox/Alum Hydrox 30 Ml Oral.Susp) 30 ml PO Q6H PRN PRN Reason: Heartburn/Nausea Hydroxyzine HCl (Hydroxyzine Hcl 25 Mg Tablet) 25 mg PO Q6H PRN PRN Reason: Anxiety Last Admin: 01/08/22 00:24 Dose: 25 mg Magnesium Hydroxide (Milk Of Magnesia 30 Ml Oral.Susp) 30 ml PO DAILY PRN PRN Reason: Constipation Trazodone HCl (Trazodone Hcl 50 Mg Tablet) 50 mg PO BEDTIME PRN PRN Reason: Insomnia Last Admin: 01/08/22 00:24 Dose: 50 mg Allergies Allergies Allergy/AdvReac Type Severity Reaction Status Date / Time insect venom [MOSQUITO] Allergy Unknown UNKNOWN Verified 09/01/21 18:00 paliperidone [From INVEGA] Allergy Unknown DYSTONIC Verified 09/01/21 18:00 REACTION haloperidol [HALOPERIDOL] AdvReac Intermediate Dystonic Verified 09/01/21 18:00 reaction Assessment & Plan Assessment & Plan (1) Bipolar 1 disorder: Status: Acute Code(s): F31.9 - Bipolar disorder, unspecified Plan Barbara is a 21 y.o. Female who carries a dx of bipolar I DO and PTSD. Pt is currently endorsing sx of depression, including sad mood, avolition, anhedonia, hypersomnia, wt loss, and isolative behaviors. She has been non-adherent on meds. She has a hx of manic/ hypomanic episodes. Utox positive for cannabis, no alcohol abuse. Plan: Continue home medications of depakote 750 mg, abilify 15 mg, and w ellbutrin XL 150 mg daily. Will continue assessment and engagement. 01/08: Continue home meds, as pt does not want med changes and will monitor for benefit Q15 min safety checks, CV Monitor response to medications. Monitor for safety in the milieu. Discharge on stabilization. Patient seen. Chart reviewed. Discussed with team. Obtain collateral contact info?as needed I spent minutes with the patient and/or on the patient floor today, greater than?50% of which was spent counseling/coordinating care. Patient educated on: diagnosis, medication risk/benefits and therapeutic strategies Reason for contiued inpatient stay Substantial Risk for: rapid decompensation and med/psych decompensation
[2022-01-08] MEDS: Divalproex Sodium ER 250 MG TAB.ER.24H 750 MG PO (20:45)
[2022-01-08] MEDS: ARIPiprazole 15 MG TABLET PO (20:45)
[2022-01-08 20:47] VITALS: BP 85/53; PULSE 85; TEMP 36.7; O2SAT 100
[2022-01-08] MEDS: traZODone HCL 100 MG TABLET PO (22:03)
[2022-01-09 06:00] VITALS: BP 96/60; PULSE 90; RESP 16; TEMP 36.8; O2SAT 98
[2022-01-09] MEDS: buPROPion HCl XL 150 MG TAB.ER.24H PO (09:39)
--- NOTE | 2022-01-09 18:17 | P.PNPSI_ITS ---
Subjective Subjective Date of Service: 01/09/22 Reason For Visit: Paige Subjective Notes: Bunch Warning and Conditional Voluntary Healthcare Proxy: No Guardianship: No Medical Problems Affecting Mental Status: No Interim History: Pt reports she has been good, I just woke up and felt so much better. Attending groups. Sleep has been hernan rough, I dont really fall asleep, will toss and turn all night, but acknowledges that this could be due to napping and staying in bed all day. Tried to stay out of bed today. Wants to start writing again. Eating well. Smiling more. Says taking trazodone and hydroxyzine helped with sleep. Says she is glad to not feel like I did yesterday and the day before. Doesnt want med changes, wants to give it more time. Denies SI. 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 Medication Compliance: Yes Side effects from medications: No Attending Groups: Yes Review of Systems Acute medical concerns: No Medical Review of Systems: unchanged Mental Status Exam Mental Status Exam Narrative: A&O. Pt is in casual attire, short hair, has lost weight, not malodorous. Good eye contact, mostly attentive. No Tics or Tremors. No abnormal involuntary movements. Calm, cooperative, engaged. Non-pressured speech, however talkative, spontaneous with regular rate and rhythm, normal volume and prosody. No prolonged speech latency or dysarthria. Mood is ?better,? affect is calm. Denies SI/SIB/HI upon inquiry. Currently denies A/VH or delusional thought content. Thoughts are concrete, linear. No known cognitive or memory impairment. Insight/ Judgment limited but adequate. Diagnostics Vital Signs (24Hr): Vital Signs - 24 hr 01/08/22 20:47 01/09/22 06:00 Temperature 98.1 F 98.3 F Pulse Rate 85 90 Respiratory Rate 16 Blood Pressure 85/53 L 96/60 Pulse Oximetry 100 98 Oxygen Delivery Method Room Air BMI result Body Mass Index 18.2 Labs Results: 01/06/22 16:09 01/08/22 08:16 Labs: Laboratory Results - last 48 hr 01/08/22 01/08/22 01/08/22 08:16 08:16 08:16 Sodium 140 Potassium 4.8 Chloride 104 Carbon Dioxide 26 Anion Gap 15 BUN 10 Creatinine 0.77 Estim Creat Clear Calc 93.5 Estimated GFR > 60 Fasting Glucose 93 Estimat Average Glucose 97 Hemoglobin A1c % 5.0 Calcium 9.9 Total Bilirubin 0.7 AST 20 ALT 15 Alkaline Phosphatase 62 Total Protein 7.3 Albumin 4.3 Triglycerides 43 Cholesterol 206 D LDL Cholesterol, Calc 130 HDL Cholesterol 68 D Vitamin B12 384 TSH 1.40 Medications Medications Current Medications Acetaminophen (Acetaminophen 325 Mg Tablet) 650 mg PO Q6H PRN PRN Reason: Headache/Pain Mild Scale (1-3) Al Hydroxide/Mg Hydroxide (Magnesium Hydrox/Alum Hydrox 30 Ml Oral.Susp) 30 ml PO Q6H PRN PRN Reason: Heartburn/Nausea Aripiprazole (Aripiprazole 15 Mg Tablet) 15 mg PO BEDTIME [facility] Last Admin: 01/08/22 20:45 Dose: 15 mg Bupropion HCl (Bupropion Hcl Xl 150 Mg Tab.Er.24h) 150 mg PO DAILY [facility] Last Admin: 01/09/22 09:39 Dose: 150 mg Clonazepam (Clonazepam 0.5 Mg Tablet) 0.5 mg PO DAILY PRN PRN Reason: Anxiety Divalproex Sodium (Divalproex Sodium Er 250 Mg Tab.Er.24h) 750 mg PO BEDTIME [facility] Last Admin: 01/08/22 20:45 Dose: 750 mg Hydroxyzine HCl (Hydroxyzine Hcl 25 Mg Tablet) 25 mg PO Q6H PRN PRN Reason: Anxiety Last Admin: 01/08/22 00:24 Dose: 25 mg Hydroxyzine HCl (Hydroxyzine Hcl 25 Mg Tablet) 25 mg PO BEDTIME PRN PRN Reason: Anxiety Magnesium Hydroxide (Milk Of Magnesia 30 Ml Oral.Susp) 30 ml PO DAILY PRN PRN Reason: Constipation Trazodone HCl (Trazodone Hcl 100 Mg Tablet) 100 mg PO BEDTIME PRN PRN Reason: Insomnia Last Admin: 01/08/22 22:03 Dose: 100 mg Allergies Allergies Allergy/AdvReac Type Severity Reaction Status Date / Time insect venom [MOSQUITO] Allergy Unknown UNKNOWN Verified 09/01/21 18:00 paliperidone [From INVEGA] Allergy Unknown DYSTONIC Verified 09/01/21 18:00 REACTION haloperidol [HALOPERIDOL] AdvReac Intermediate Dystonic Verified 09/01/21 18:00 reaction Assessment & Plan Assessment & Plan (1) PTSD (post-traumatic stress disorder): Status: Acute Code(s): F43.10 - Post-traumatic stress disorder, unspecified Plan Barbara is a 21 y.o. Female who carries a dx of bipolar I DO, currently depressed, and PTSD. Pt is currently endorsing sx of depression, including sad mood, avolition, anhedonia, hypersomnia, wt loss, and isolative behaviors. She has been non-adherent on meds. She has a hx of manic/ hypomanic episodes. Utox positive for cannabis, no alcohol abuse. Plan: Continue home medications of depakote 750 mg, abilify 15 mg, and wellbutrin XL 150 mg daily. Will continue assessment and engagement. 01/08: Continue home meds, as pt does not want med changes and will monitor for benefit 01/09: No med changes, pt re-stabilizing on home meds Q15 min safety checks, CV Monitor response to medications. Monitor for safety in the milieu. Discharge on stabilization. Patient seen. Chart reviewed. Discussed with team. Obtain collateral contact info?as needed I spent minutes with the patient and/or on the patient floor today, greater than?50% of which was spent counseling/coordinating care. Patient educated on: diagnosis, medication risk/benefits and therapeutic strategies Reason for contiued inpatient stay Substantial Risk for: rapid decompensation and med/psych decompensation
[2022-01-09 20:25] VITALS: BP 107/67; PULSE 74; RESP 18; TEMP 36.7; O2SAT 100
[2022-01-09] MEDS: Divalproex Sodium ER 250 MG TAB.ER.24H 750 MG PO (20:55)
[2022-01-09] MEDS: ARIPiprazole 15 MG TABLET PO (20:55)
[2022-01-09] MEDS: traZODone HCL 100 MG TABLET PO (20:56)
[2022-01-09] MEDS: hydrOXYzine HCL 25 MG TABLET PO ×2 (20:56)
[2022-01-10 08:15] VITALS: BP 97/59; PULSE 80; RESP 20; TEMP 36.4; O2SAT 99
--- NOTE | 2022-01-10 09:26 | HO.PSYCHPN ---
Subjective Subjective Date of Service: 01/10/22 Reason For Visit: Paige Subjective Notes: Bunch Warning and Conditional Voluntary Interim History: I spoke with pt today, she is found laying down in bed, denies sleeping but says she is bored and thus is staying in bed to make the time go by faster. Says she still feels better being back on medications. Does not feel she would be daytime sleeping if she was home, as she would have more to do. Says her depression is basically like gone. Denies SI/SIB. Medication Compliance: Yes Side effects from medications: No Attending Groups: Yes Review of Systems Acute medical concerns: No Medical Review of Systems: unchanged Mental Status Exam Mental Status Exam Narrative: A&O. Pt is in casual attire, short hair, has lost weight, not malodorous. Good eye contact, mostly attentive. No Tics or Tremors. No abnormal involuntary movements. Calm, cooperative, engaged. Non-pressured speech, however talkative, spontaneous with regular rate and rhythm, normal volume and prosody. No prolonged speech latency or dysarthria. Mood is ?better,? affect is calm. Denies SI/SIB/HI upon inquiry. Currently denies A/VH or delusional thought content. Thoughts are concrete, linear. No known cognitive or memory impairment. Insight/ Judgment limited but adequate. Diagnostics Vital Signs (24Hr): Vital Signs - 24 hr 01/09/22 20:25 Temperature 98.1 F Pulse Rate 74 Respiratory Rate 18 Blood Pressure 107/67 Pulse Oximetry 100 Oxygen Delivery Method Room Air BMI result Body Mass Index 18.2 Labs Results: 01/06/22 16:09 01/08/22 08:16 Labs: Laboratory Results - last 48 hr 01/08/22 01/08/22 01/08/22 08:16 08:16 08:16 Estimat Average Glucose 97 Hemoglobin A1c % 5.0 Vitamin B12 384 TSH 1.40 Medications Medications Current Medications Acetaminophen (Acetaminophen 325 Mg Tablet) 650 mg PO Q6H PRN PRN Reason: Headache/Pain Mild Scale (1-3) Al Hydroxide/Mg Hydroxide (Magnesium Hydrox/Alum Hydrox 30 Ml Oral.Susp) 30 ml PO Q6H PRN PRN Reason: Heartburn/Nausea Aripiprazole (Aripiprazole 15 Mg Tablet) 15 mg PO BEDTIME [facility] Last Admin: 01/09/22 20:55 Dose: 15 mg Bupropion HCl (Bupropion Hcl Xl 150 Mg Tab.Er.24h) 150 mg PO DAILY [facility] Last Admin: 01/09/22 09:39 Dose: 150 mg Clonazepam (Clonazepam 0.5 Mg Tablet) 0.5 mg PO DAILY PRN PRN Reason: Anxiety Divalproex Sodium (Divalproex Sodium Er 250 Mg Tab.Er.24h) 750 mg PO BEDTIME [facility] Last Admin: 01/09/22 20:55 Dose: 750 mg Hydroxyzine HCl (Hydroxyzine Hcl 25 Mg Tablet) 25 mg PO Q6H PRN PRN Reason: Anxiety Last Admin: 01/09/22 20:56 Dose: 25 mg Hydroxyzine HCl (Hydroxyzine Hcl 25 Mg Tablet) 25 mg PO BEDTIME PRN PRN Reason: Anxiety Last Admin: 01/09/22 20:56 Dose: 25 mg Magnesium Hydroxide (Milk Of Magnesia 30 Ml Oral.Susp) 30 ml PO DAILY PRN PRN Reason: Constipation Trazodone HCl (Trazodone Hcl 100 Mg Tablet) 100 mg PO BEDTIME PRN PRN Reason: Insomnia Last Admin: 01/09/22 20:56 Dose: 100 mg Allergies Allergies Allergy/AdvReac Type Severity Reaction Status Date / Time insect venom [MOSQUITO] Allergy Unknown UNKNOWN Verified 09/01/21 18:00 paliperidone [From INVEGA] Allergy Unknown DYSTONIC Verified 09/01/21 18:00 REACTION haloperidol [HALOPERIDOL] AdvReac Intermediate Dystonic Verified 09/01/21 18:00 reaction Assessment & Plan Assessment & Plan (1) PTSD (post-traumatic stress disorder): Status: Acute Code(s): F43.10 - Post-traumatic stress disorder, unspecified Plan Barbara is a 21 y.o. Female who carries a dx of bipolar I DO, currently depressed, and PTSD. Pt is currently endorsing sx of depression, including sad mood, avolition, anhedonia, hypersomnia, wt loss, and isolative behaviors. She has been non-adherent on meds. She has a hx of manic/ hypomanic episodes. Utox positive for cannabis, no alcohol abuse. Plan: Continue home medications of depakote 750 mg, abilify 15 mg, and wellbutrin XL 150 mg daily. Will continue assessment and engagement. 01/08: Continue home meds, as pt does not want med changes and will monitor for benefit 01/09: No med changes, pt re-stabilizing on home meds 01/10: Does not want med changes, reports she is progressing back to baseline Q15 min safety checks, CV Monitor response to medications. Monitor for safety in the milieu. Discharge on stabilization. Patient seen. Chart reviewed. Discussed with team. Obtain collateral contact info?as needed I spent minutes with the patient and/or on the patient floor today, greater than?50% of which was spent counseling/coordinating care. Patient educated on: therapeutic strategies Reason for contiued inpatient stay Substantial Risk for: med/psych decompensation
[2022-01-10] MEDS: buPROPion HCl XL 150 MG TAB.ER.24H PO (09:32)
[2022-01-10 20:47] VITALS: BP 85/57; PULSE 97; RESP 18; TEMP 36.7; O2SAT 99
[2022-01-10] MEDS: hydrOXYzine HCL 25 MG TABLET PO ×2 (20:47)
[2022-01-10] MEDS: ARIPiprazole 15 MG TABLET PO (20:47)
[2022-01-10] MEDS: Divalproex Sodium ER 250 MG TAB.ER.24H 750 MG PO (20:47)
[2022-01-10] MEDS: traZODone HCL 100 MG TABLET PO (20:47)
[2022-01-11 09:45] VITALS: BP 98/60; PULSE 122; RESP 18; TEMP 36.3; O2SAT 99
[2022-01-11] MEDS: buPROPion HCl XL 150 MG TAB.ER.24H PO (09:51)
--- NOTE | 2022-01-11 10:57 | HO.PSYCHPN ---
Subjective Subjective Date of Service: 01/11/22 Reason For Visit: Paige Subjective Notes: Bunch Warning and Conditional Voluntary Healthcare Proxy: No Guardianship: No Medical Problems Affecting Mental Status: No Interim History: I spoke with pt today and she says sleep was good last night, better than it has been. Less daytime sleeping but still staying in bed, says this is to make the time pass. Mood is a lot more up, denies depression. Says she notices it feels less like a chore to talk and stuff. She wants to go home. Denies anxiety. Medication Compliance: Yes Side effects from medications: No Attending Groups: No Review of Systems Acute medical concerns: No Medical Review of Systems: unchanged Mental Status Exam Mental Status Exam Narrative: A&O. Pt is in casual attire, short hair, has lost weight, not malodorous. Good eye contact, mostly attentive. No Tics or Tremors. No abnormal involuntary movements. Calm, cooperative, engaged. Non-pressured speech, however talkative, spontaneous with regular rate and rhythm, normal volume and prosody. No prolonged speech latency or dysarthria. Mood is ?better,? affect is calm. Denies SI/SIB/HI upon inquiry. Currently denies A/VH or delusional thought content. Thoughts are concrete, linear. No known cognitive or memory impairment. Insight/ Judgment limited but adequate Diagnostics Vital Signs (24Hr): Vital Signs - 24 hr 01/10/22 20:47 01/11/22 09:45 Temperature 98.1 F 97.4 F Pulse Rate 97 122 H Respiratory Rate 18 18 Blood Pressure 85/57 L 98/60 Pulse Oximetry 99 99 Oxygen Delivery Method Room Air Room Air BMI result Body Mass Index 18.2 Labs Results: 01/06/22 16:09 01/08/22 08:16 Medications Medications Current Medications Acetaminophen (Acetaminophen 325 Mg Tablet) 650 mg PO Q6H PRN PRN Reason: Headache/Pain Mild Scale (1-3) Al Hydroxide/Mg Hydroxide (Magnesium Hydrox/Alum Hydrox 30 Ml Oral.Susp) 30 ml PO Q6H PRN PRN Reason: Heartburn/Nausea Aripiprazole (Aripiprazole 15 Mg Tablet) 15 mg PO BEDTIME GAVIOTA Last Admin: 01/10/22 20:47 Dose: 15 mg Bupropion HCl (Bupropion Hcl Xl 150 Mg Tab.Er.24h) 150 mg PO DAILY GAVIOTA Last Admin: 01/11/22 09:51 Dose: 150 mg Clonazepam (Clonazepam 0.5 Mg Tablet) 0.5 mg PO DAILY PRN PRN Reason: Anxiety Divalproex Sodium (Divalproex Sodium Er 250 Mg Tab.Er.24h) 750 mg PO BEDTIME GAVIOTA Last Admin: 01/10/22 20:47 Dose: 750 mg Hydroxyzine HCl (Hydroxyzine Hcl 25 Mg Tablet) 25 mg PO Q6H PRN PRN Reason: Anxiety Last Admin: 01/10/22 20:47 Dose: 25 mg Hydroxyzine HCl (Hydroxyzine Hcl 25 Mg Tablet) 25 mg PO BEDTIME PRN PRN Reason: Anxiety Last Admin: 01/10/22 20:47 Dose: 25 mg Magnesium Hydroxide (Milk Of Magnesia 30 Ml Oral.Susp) 30 ml PO DAILY PRN PRN Reason: Constipation Trazodone HCl (Trazodone Hcl 100 Mg Tablet) 100 mg PO BEDTIME PRN PRN Reason: Insomnia Last Admin: 01/10/22 20:47 Dose: 100 mg Allergies Allergies Allergy/AdvReac Type Severity Reaction Status Date / Time insect venom [MOSQUITO] Allergy Unknown UNKNOWN Verified 09/01/21 18:00 paliperidone [From INVEGA] Allergy Unknown DYSTONIC Verified 09/01/21 18:00 REACTION haloperidol [HALOPERIDOL] AdvReac Intermediate Dystonic Verified 09/01/21 18:00 reaction Assessment & Plan Assessment & Plan (1) PTSD (post-traumatic stress disorder): Status: Acute Code(s): F43.10 - Post-traumatic stress disorder, unspecified Plan Barbara is a 21 y.o. Female who carries a dx of bipolar I DO, currently depressed, and PTSD. Pt is currently endorsing sx of depression, including sad mood, avolition, anhedonia, hypersomnia, wt loss, and isolative behaviors. She has been non-adherent on meds. She has a hx of manic/ hypomanic episodes. Utox positive for cannabis, no alcohol abuse. Plan: Continue home medications of depakote 750 mg, abilify 15 mg, and wellbutrin XL 150 mg daily. Will continue assessment and engagement. 01/08: Continue home meds, as pt does not want med changes and will monitor for benefit 01/09: No med changes, pt re-stabilizing on home meds 01/10: Does not want med changes, reports she is progressing back to baseline 01/11: Stable, denies sx, tolerating medication, will order VPA level Q15 min safety checks, CV Monitor response to medications. Monitor for safety in the milieu. Discharge on stabilization. Patient seen. Chart reviewed. Discussed with team. Obtain collateral contact info?as needed I spent minutes with the patient and/or on the patient floor today, greater than?50% of which was spent counseling/coordinating care. Patient educated on: medication risk/benefits and therapeutic strategies Reason for contiued inpatient stay Substantial Risk for: med/psych decompensation
--- NOTE | 2022-01-11 15:23 | PC.NURSE ---
Staff noted that although patient appears to be eating, and cutting up food, very little food is actually consumed. When asked, patient states that this is because she does not like the taste of the food. Patient denies that lack of intake is due to eating disorder. Provider made aware of elevated HR, and reduced intake. Nutritional consult ordered, patient states she would be willing to drink ensure.
[2022-01-11 18:00] VITALS: BP 89/51; PULSE 96; RESP 16; TEMP 36.6; O2SAT 99
[2022-01-11] MEDS: Divalproex Sodium ER 250 MG TAB.ER.24H 750 MG PO (21:13)
[2022-01-11] MEDS: ARIPiprazole 15 MG TABLET PO (21:15)
[2022-01-12 08:36] LABS: Valproate 62.9 mcg/mL (50.0-100.0)
[2022-01-12] MEDS: buPROPion HCl XL 150 MG TAB.ER.24H PO (09:02)
--- NOTE | 2022-01-12 12:15 | HO.PSYCHPN ---
Subjective Subjective Date of Service: 01/12/22 Reason For Visit: Paige Subjective Notes: Bunch Warning and Conditional Voluntary Healthcare Proxy: No Guardianship: No Medical Problems Affecting Mental Status: No Interim History: Spoke with pt today, she is sleeping better at night, trying to make this day go by by staying in bed but insists this is not out of depression, more out of boredom. Says her depression is gone. Denies anxiety. VPA level 62.9. Medication Compliance: Yes Side effects from medications: No Attending Groups: No Review of Systems Acute medical concerns: No Medical Review of Systems: unchanged Mental Status Exam Mental Status Exam Narrative: A&O. Pt is in casual attire, short hair, has lost weight, not malodorous. Good eye contact, mostly attentive. No Tics or Tremors. No abnormal involuntary movements. Calm, cooperative, engaged. Non-pressured speech, however talkative, spontaneous with regular rate and rhythm, normal volume and prosody. No prolonged speech latency or dysarthria. Mood is ?better,? affect is calm. Denies SI/SIB/HI upon inquiry. Currently denies A/VH or delusional thought content. Thoughts are concrete, linear. No known cognitive or memory impairment. Insight/ Judgment limited but adequate Diagnostics Vital Signs (24Hr): Vital Signs - 24 hr 01/11/22 18:00 Temperature 97.8 F Pulse Rate 96 Respiratory Rate 16 Blood Pressure 89/51 L Pulse Oximetry 99 Oxygen Delivery Method Room Air BMI result Body Mass Index 18.2 Labs Results: 01/06/22 16:09 01/08/22 08:16 Labs: Laboratory Results - last 48 hr 01/12/22 07:44 Valproic Acid 62.9 Medications Medications Current Medications Acetaminophen (Acetaminophen 325 Mg Tablet) 650 mg PO Q6H PRN PRN Reason: Headache/Pain Mild Scale (1-3) Al Hydroxide/Mg Hydroxide (Magnesium Hydrox/Alum Hydrox 30 Ml Oral.Susp) 30 ml PO Q6H PRN PRN Reason: Heartburn/Nausea Aripiprazole (Aripiprazole 15 Mg Tablet) 15 mg PO BEDTIME GAVIOTA Last Admin: 01/11/22 21:15 Dose: 15 mg Bupropion HCl (Bupropion Hcl Xl 150 Mg Tab.Er.24h) 150 mg PO DAILY GAVIOTA Last Admin: 01/12/22 09:02 Dose: 150 mg Clonazepam (Clonazepam 0.5 Mg Tablet) 0.5 mg PO DAILY PRN PRN Reason: Anxiety Divalproex Sodium (Divalproex Sodium Er 250 Mg Tab.Er.24h) 750 mg PO BEDTIME GAVIOTA Last Admin: 01/11/22 21:13 Dose: 750 mg Hydroxyzine HCl (Hydroxyzine Hcl 25 Mg Tablet) 25 mg PO Q6H PRN PRN Reason: Anxiety Last Admin: 01/10/22 20:47 Dose: 25 mg Hydroxyzine HCl (Hydroxyzine Hcl 25 Mg Tablet) 25 mg PO BEDTIME PRN PRN Reason: Anxiety Last Admin: 01/10/22 20:47 Dose: 25 mg Magnesium Hydroxide (Milk Of Magnesia 30 Ml Oral.Susp) 30 ml PO DAILY PRN PRN Reason: Constipation Trazodone HCl (Trazodone Hcl 100 Mg Tablet) 100 mg PO BEDTIME PRN PRN Reason: Insomnia Last Admin: 01/10/22 20:47 Dose: 100 mg Allergies Allergies Allergy/AdvReac Type Severity Reaction Status Date / Time insect venom [MOSQUITO] Allergy Unknown UNKNOWN Verified 09/01/21 18:00 paliperidone [From INVEGA] Allergy Unknown DYSTONIC Verified 09/01/21 18:00 REACTION haloperidol [HALOPERIDOL] AdvReac Intermediate Dystonic Verified 09/01/21 18:00 reaction Assessment & Plan Assessment & Plan (1) PTSD (post-traumatic stress disorder): Status: Acute Code(s): F43.10 - Post-traumatic stress disorder, unspecified Plan Barbara is a 21 y.o. Female who carries a dx of bipolar I DO, currently depressed, and PTSD. Pt is currently endorsing sx of depression, including sad mood, avolition, anhedonia, hypersomnia, wt loss, and isolative behaviors. She has been non-adherent on meds. She has a hx of manic/ hypomanic episodes. Utox positive for cannabis, no alcohol abuse. Plan: Continue home medications of depakote 750 mg, abilify 15 mg, and wellbutrin XL 150 mg daily. Will continue assessment and engagement. 01/08: Continue home meds, as pt does not want med changes and will monitor for benefit 01/09: No med changes, pt re-stabilizing on home meds 01/10: Does not want med changes, reports she is progressing back to baseline 01/11: Stable, denies sx, tolerating medication, will order VPA level 01/12: VPA level 62.9, progressing to baseline, no med changes Q15 min safety checks, CV Monitor response to medications. Monitor for safety in the milieu. Discharge on stabilization. Patient seen. Chart reviewed. Discussed with team. Obtain collateral contact info?as needed I spent minutes with the patient and/or on the patient floor today, greater than?50% of which was spent counseling/coordinating care. Patient educated on: medication risk/benefits and therapeutic strategies Reason for contiued inpatient stay Substantial Risk for: med/psych decompensation
[2022-01-12 18:00] VITALS: BP 91/53; PULSE 87; RESP 16; TEMP 36.6; O2SAT 99
[2022-01-12] MEDS: ARIPiprazole 15 MG TABLET PO (20:56)
[2022-01-12] MEDS: Divalproex Sodium ER 250 MG TAB.ER.24H 750 MG PO (20:56)
--- NOTE | 2022-01-12 21:08 | PC.NURSE ---
Pt has hx of limiting food intake. During assessment, pt reported she is looking forward to going home and having some real food, such as [employer]. Pt reported eating 60% of her dinner today; [facility] recorded she ate @50%. Educated pt she can request a new tray if what she orders is not satisfying. Pt expresses understanding and says she is able to eat, just does not eat all that is delivered.
[2022-01-12] MEDS: traZODone HCL 100 MG TABLET PO (21:58)
[2022-01-12] MEDS: hydrOXYzine HCL 25 MG TABLET PO (21:58)
[2022-01-13] MEDS: buPROPion HCl XL 150 MG TAB.ER.24H PO (08:19)
[2022-01-13 08:20] VITALS: BP 87/54; PULSE 75; RESP 16; TEMP 36.6; O2SAT 99
--- NOTE | 2022-01-13 12:08 | HO.PSYCHPN ---
Subjective Subjective Date of Service: 01/13/22 Reason For Visit: Paige Subjective Notes: Conditional Voluntary Interim History: Pt reports she is feeling less depressed. No SI/HI. No signs of hypomania or paige. No signs of psychosis. She reports sleep is fine. She has been mostly in her room, minimally engaging with peers. She is looking forward to be discharged tomorrow and return home with mother and siblings. No behavioral concerns. 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 Pt is in casual attire, short hair, has lost weight, not malodorous. Good eye contact, mostly attentive. No Tics or Tremors. No abnormal involuntary movements. Calm, cooperative, engaged. Non-pressured speech, however talkative, spontaneous with regular rate and rhythm, normal volume and prosody. No prolonged speech latency or dysarthria. Mood is ?better,? affect is calm. Denies SI/SIB/HI upon inquiry. Currently denies A/VH or delusional thought content. Thoughts are concrete, linear. No known cognitive or memory impairment. Insight/ Judgment limited but adequate Diagnostics Vital Signs (24Hr): Vital Signs - 24 hr 01/12/22 18:00 01/13/22 08:20 Temperature 97.8 F 97.9 F Pulse Rate 87 75 Respiratory Rate 16 16 Blood Pressure 91/53 L 87/54 L Pulse Oximetry 99 99 Oxygen Delivery Method Room Air Room Air BMI result Body Mass Index 18.2 Labs Results: 01/06/22 16:09 01/08/22 08:16 Labs: Laboratory Results - last 48 hr 01/12/22 07:44 Valproic Acid 62.9 Medications Medications Current Medications Acetaminophen (Acetaminophen 325 Mg Tablet) 650 mg PO Q6H PRN PRN Reason: Headache/Pain Mild Scale (1-3) Al Hydroxide/Mg Hydroxide (Magnesium Hydrox/Alum Hydrox 30 Ml Oral.Susp) 30 ml PO Q6H PRN PRN Reason: Heartburn/Nausea Aripiprazole (Aripiprazole 15 Mg Tablet) 15 mg PO BEDTIME GAVIOTA Last Admin: 01/12/22 20:56 Dose: 15 mg Bupropion HCl (Bupropion Hcl Xl 150 Mg Tab.Er.24h) 150 mg PO DAILY GAVIOTA Last Admin: 01/13/22 08:19 Dose: 150 mg Clonazepam (Clonazepam 0.5 Mg Tablet) 0.5 mg PO DAILY PRN PRN Reason: Anxiety Divalproex Sodium (Divalproex Sodium Er 250 Mg Tab.Er.24h) 750 mg PO BEDTIME GAVIOTA Last Admin: 01/12/22 20:56 Dose: 750 mg Hydroxyzine HCl (Hydroxyzine Hcl 25 Mg Tablet) 25 mg PO Q6H PRN PRN Reason: Anxiety Last Admin: 01/10/22 20:47 Dose: 25 mg Hydroxyzine HCl (Hydroxyzine Hcl 25 Mg Tablet) 25 mg PO BEDTIME PRN PRN Reason: Anxiety Last Admin: 01/12/22 21:58 Dose: 25 mg Magnesium Hydroxide (Milk Of Magnesia 30 Ml Oral.Susp) 30 ml PO DAILY PRN PRN Reason: Constipation Trazodone HCl (Trazodone Hcl 100 Mg Tablet) 100 mg PO BEDTIME PRN PRN Reason: Insomnia Last Admin: 01/12/22 21:58 Dose: 100 mg Allergies Allergies Allergy/AdvReac Type Severity Reaction Status Date / Time insect venom [MOSQUITO] Allergy Unknown UNKNOWN Verified 09/01/21 18:00 paliperidone [From INVEGA] Allergy Unknown DYSTONIC Verified 09/01/21 18:00 REACTION haloperidol [HALOPERIDOL] AdvReac Intermediate Dystonic Verified 09/01/21 18:00 reaction Assessment & Plan Assessment & Plan (1) Bipolar 1 disorder, depressed, full remission: Status: Chronic Code(s): F31.76 - Bipolar disorder, in full remission, most recent episode depressed (2) PTSD (post-traumatic stress disorder): Status: Acute Code(s): F43.10 - Post-traumatic stress disorder, unspecified Plan Barbara is a 21 y.o. Female who carries a dx of bipolar I DO, currently depressed, and PTSD. Pt is currently endorsing sx of depression, including sad mood, avolition, anhedonia, hypersomnia, wt loss, and isolative behaviors. She has been non-adherent on meds. She has a hx of manic/ hypomanic episodes. Utox positive for cannabis, no alcohol abuse. Plan: Continue home medications of depakote 750 mg, abilify 15 mg, and wellbutrin XL 150 mg daily. Will continue assessment and engagement. 01/08: Continue home meds, as pt does not want med changes and will monitor for benefit 01/09: No med changes, pt re-stabilizing on home meds 01/10: Does not want med changes, reports she is progressing back to baseline 01/11: Stable, denies sx, tolerating medication, will order VPA level 01/12: VPA level 62.9, progressing to baseline, no med changes 01/13 continue current medications. Q15 min safety checks, CV Monitor response to medications. Monitor for safety in the milieu. Discharge on stabilization. Patient seen. Chart reviewed. Discussed with team. Obtain collateral contact info?as needed I spent minutes with the patient and/or on the patient floor today, greater than?50% of which was spent counseling/coordinating care. Reason for contiued inpatient stay Substantial Risk for: stable for discharge
[2022-01-13] MEDS: traZODone HCL 100 MG TABLET PO (21:10)
[2022-01-13] MEDS: ARIPiprazole 15 MG TABLET PO (21:10)
[2022-01-13] MEDS: Divalproex Sodium ER 250 MG TAB.ER.24H 750 MG PO (21:10)
[2022-01-13] MEDS: hydrOXYzine HCL 25 MG TABLET PO (21:10)
[2022-01-13 21:12] VITALS: BP 99/55; PULSE 100; TEMP 36.7; O2SAT 100
[2022-01-14] MEDS: buPROPion HCl XL 150 MG TAB.ER.24H PO (08:15)
[2022-01-14 08:16] VITALS: BP 96/58; PULSE 88; RESP 16; TEMP 36.4; O2SAT 99
--- NOTE | 2022-01-14 10:27 | P.DS_ITS ---
DS: Providers Provider Date of Service: 01/14/22 Date of admission: 01/07/22 14:55 Primary care physician: [facility] DS: Diagnosis Discharge Diagnosis (1) Bipolar 1 disorder, depressed, full remission: Status: Chronic (2) PTSD (post-traumatic stress disorder): Status: Acute DS: Medications Discharge Medications Home Medications: Home Medications Medication Instructions Recorded Confirmed hydroxyzine HCl 25 mg tablet 1 tab PO BEDTIME PRN Anxiety 12/24/21 01/06/22 trazodone 100 mg tablet 1 tab PO BEDTIME PRN Insomnia 12/24/21 01/06/22 clonazepam 0.5 mg tablet 1 tab PO DAILY PRN Anxiety 01/06/22 01/06/22 Previous Rx's Medication Instructions Recorded aripiprazole 15 mg tablet 15 mg PO BEDTIME #30 tabs 12/26/21 bupropion HCl 150 mg tablet,12 hr 150 mg PO DAILY #30 tabs 12/26/21 sustained-release (Wellbutrin SR) divalproex 250 mg tablet,extended 750 mg PO BEDTIME #90 tabs 12/26/21 release 24 hr Mental Status Exam Mental Status Exam Narrative: A&O. Pt is in casual attire, short hair, has lost weight, not malodorous. Good eye contact, mostly attentive. No Tics or Tremors. No abnormal involuntary movements. Calm, cooperative, engaged. Non-pressured speech, however talkative, spontaneous with regular rate and rhythm, normal volume and prosody. No prolonged speech latency or dysarthria. Mood is ?better,? affect is calm. Denies SI/SIB/HI upon inquiry. Currently denies A/VH or delusional thought content. Thoughts are concrete, linear. No known cognitive or memory impairment. Insight/ Judgment limited but adequate Data Data Completed and Pending Completed studies during hospitalization [Text1]: 01/08/22 01/08/22 01/08/22 08:16 08:16 08:16 Sodium 140 Potassium 4.8 Chloride 104 Carbon Dioxide 26 Anion Gap 15 BUN 10 Creatinine 0.77 Estim Creat Clear Calc 93.5 Estimated GFR > 60 Fasting Glucose 93 Estimat Average Glucose 97 Hemoglobin A1c % 5.0 Calcium 9.9 Total Bilirubin 0.7 AST 20 ALT 15 Alkaline Phosphatase 62 Total Protein 7.3 Albumin 4.3 Triglycerides 43 Cholesterol 206 D LDL Cholesterol, Calc 130 HDL Cholesterol 68 D Vitamin B12 384 TSH 1.40 Valproic Acid 01/12/22 07:44 Sodium Potassium Chloride Carbon Dioxide Anion Gap BUN Creatinine Estim Creat Clear Calc Estimated GFR Fasting Glucose Estimat Average Glucose Hemoglobin A1c % Calcium Total Bilirubin AST ALT Alkaline Phosphatase Total Protein Albumin Triglycerides Cholesterol LDL Cholesterol, Calc HDL Cholesterol Vitamin B12 TSH Valproic Acid 62.9 DS: Summary Hospital Course Hospital Course: HPI: Subjective Notes: Bunch Warning and Conditional Voluntary Healthcare Proxy: No Guardianship: No Medical Problems Affecting Mental Status: No Narrative: Barbara is a 21 y.o. Female who carries a dx of bipolar I DO and PTSD. She was recently discharged from [facility] on 10/11-12/2021 due to hypomanic presentation in context of med non-adherence. During this hospitalization she agreed to continue depakote and wellbutrin and abilify was increased to 15 mg daily. She then presented to [facility] ED on 12/24/2021 due to depression, SI with plan to run into traffic or jump out a window. Precipitating fx included med non-adherence and a friend of hers who she had a crush on told her she doesnt want to be friends anymore. Pt re-presented to [facility] ED on 01/06 due to depression, SI. She told CARE team clinician that she has been struggling with the SI thoughts since the last ED visit and the symptoms have gotten worse. Utox positive for cannabis.? I attempted to evaluate pt this evening, however she is asleep and declines interview at this time. Does not want med changes.? Past Psychiatric History: Past meds: lithium (weight gain), propranolol (helped with EPS), klonopin (worsening PTSD), perphenazine (lack of benefit). Multiple admissions to M[facility], one to M3 anorexia nervosa. h/o passive SI h/o SIB - cutting, early adolescence h/o bipolar disorder Psych provider is Clarisse Smith at [facility] Medical Evaluation Reviewed: Yes HOSPITAL COURSE On the unit, Ms. Porter was admitted on a CV and placed on 15 miuntes checks for safety. After discussing risks, benefits and alternative treatment options, pt agreed to be restarted on wellbutrin, depakote and abilify, medications that have worked well for her in the past. Pt initially spent most of the time in her room. She gradually reported feeling less depressed and denied suicidal ideation, plan or intent throughout this admission. She was increasingly more visible in the unit and social with select peers. There were no incidences of disruptive behaviors nor need of restraints. No overt s/s of psychosis or todd noted- as seen in previous admission. Collateral information gathered from mother who denied safety concerns at time of discharged and agreed that pt appeared in much improved condition. Status at Discharge Cognitive/behavioral status at discharge: Pt presents with brighter, non labile mood. No SI/HI. Pt is future oriented as evidenced by statements related to wanting to continue school, see family. No s/s of hypomania or todd. No signs of aggression towards self or others. Functional status at discharge: independent ambulation Overall status at discharge: patient is progressing back to baseline Time Spent with Patient Time attestation: Total time spent providing and/or coordinating discharge services: Discharge Plan Discharge Patient Disposition: Home Health Service Discharge Diagnosis: Bipolar Disorder type 1 Referrals: Sahara Ferreira (Therapy) [Other] - 01/19/22 1:45 pm (IN OFFICE APPOINTMENT) Joanna Smith (Psychiatry) [Other] - 01/21/22 11:40 am (TELEHEALTH APPOINTMENT) [facility] [Primary Care Provider] - 01/23/22 2:30 pm Discharge Medications: Continued trazodone 100 mg tablet 1 tab PO BEDTIME PRN (Reason: Insomnia) hydroxyzine HCl 25 mg tablet 1 tab PO BEDTIME PRN (Reason: Anxiety) bupropion HCl [Wellbutrin SR] 150 mg tablet sustained-release 12 hr 150 mg PO DAILY Qty: 30 0RF aripiprazole 15 mg tablet 15 mg PO BEDTIME Qty: 30 0RF divalproex 250 mg tablet extended release 24 hr 750 mg PO BEDTIME Qty: 90 0RF clonazepam 0.5 mg tablet 1 tab PO DAILY PRN (Reason: Anxiety) Discharge Orders: Discharge Order (Routine); Ordered 01/14/22 Ordered By: Farrah Torres Diet: Regular diet Activity on Discharge: As tolerated Stand Alone Forms: Patient Portal Discharge page Care Plan Goals: 1. Maintain mood 2. No SI/HI No over s/s of todd Less depressed No aggression towards self or others Health Concerns: Follow up with PCP Plan of Treatment: 1. Take medications as prescribed 2. Go to nearest ED or call 911 in event of emergency Assessment: Pt with brighter, non labile affect. No SI/HI. No signs of todd or hypomania. No signs of aggression towards self or others.
--- NOTE | 2022-01-14 11:13 | MHC.CLN ---
NUTRITION CONSULT FOR EATING DISORDER/EDUCATION. VISITED WITH PATIENT IN HER ROOM. PATIENT OFFERED HER HISTORY OF EATING DISORDER, STARTING AT AGE 13. REPORTED STAY AT [facility] AGE 15 AND POSITIVE LEARNING FROM THERE. LIVES WITH MOTHER AND SIBLINGS. REPORTS THAT MOTHER IS SUPPORTIVE AROUND FOOD, ALLOWING HER TO PURCHASE/PREPARE WHAT SHE LIKES. APPEARS KNOWLEDGEABLE IN LABEL READING. AWARE OF NEED TO BALANCE FOODS RATHER THAN FOCUS ON EX. PROTEIN ONLY. REPORTS THAT ATE SOMETHING FROM EACH OF THE 3 DAILY MEALS DURING THIS ADMISSION. WILL DRINK ENSURE SUPPLEMENT. PROVIDED 15 SERVING OF PREFERRED FLAVOR FOR PATIENT TO TAKE HOME. RD AVAILABLE NEEDED.
== END 2022-01-14 13:07 | disposition home health service (06) | DRG 753 ==
LOC: HO.ED 16:09 → HO.PADLT16 01-07 15:15
PROVIDERS: Registered Nurse; Admitting Provider Psychiatry & Neurology Psychiatry; Emergency Provider Emergency Medicine; Visit Provider Social Worker
DX: F31.30 Bipolar disorder, current episode depressed, mild or moderate severity, unspecified (principal); R45.851 Suicidal ideations; Z91.14 Patient's other noncompliance with medication regimen; F17.210 Nicotine dependence, cigarettes, uncomplicated; F43.10 Post-traumatic stress disorder, unspecified; Z20.822 Contact with and (suspected) exposure to COVID-19; Z91.52 Personal history of nonsuicidal self-harm; Z71.6 Tobacco abuse counseling; Z88.8 Allergy status to other drugs, medicaments and biological substances; Z79.899 Other long term (current) drug therapy
CPT/HCPCS: 36415; 80048; 80053; 80061; 80076; 80164; 80307; 81025; 82607; 83036; 83735; 84443; 85025; 87635; 93005; 99285

== ENCOUNTER 2022-02-17 17:30 | Emergency (ER) | payer MEDICAID, SELFPAY ==
[2022-02-17 17:44] VITALS: BP 106/76; PULSE 90; RESP 18; O2SAT 99
--- NOTE | 2022-02-17 18:14 | ED.PSYCH ---
HPI - Psych General Chief Complaint: Psychiatric Symptoms Stated Complaint: Crisis Eval Time Seen by Provider: 02/17/22 17:54 Source: patient Mode of arrival: ambulatory Limitations: no limitations History of Present Illness HPI Narrative: 22-year-old female history of bipolar disorder, eating disorder presenting to the emergency department with increasing depression, anxiety times a few weeks. Patient tells me she has felt hopeless, and feels like she is very depressed. She reports increasing life stressors such as economic issues at home. She tells me that she feels like she has been lying to people when they ask her if she is okay she says yes but deep down she tells me she feels like she is not okay. Reports recent psychiatric admission which she tells me she is not sure helped. She tells me she is taking her medications as prescribed but she feels like that is not enough. She has vague intermittent thoughts of suicide however he tells me she would never do it and it is just a thought. She denies suicidal and homicidal ideation at this time. Denies visual, auditory and tactile hallucinations. Reports smoking 3-4 cigarettes day and smoking marijuana. Denies other drugs, alcohol. Denies medical complaints. Related Data Home Medications Medication Instructions Recorded Confirmed hydroxyzine HCl 25 mg tablet 1 tab PO BEDTIME PRN Anxiety 12/24/21 02/17/22 trazodone 100 mg tablet 1 tab PO BEDTIME PRN Insomnia 12/24/21 02/17/22 clonazepam 0.5 mg tablet 1 tab PO DAILY PRN Anxiety 01/06/22 02/17/22 Previous Rx's Medication Instructions Recorded aripiprazole 15 mg tablet 15 mg PO BEDTIME #30 tabs 12/26/21 bupropion HCl 150 mg tablet,12 hr 150 mg PO DAILY #30 tabs 12/26/21 sustained-release (Wellbutrin SR) divalproex 250 mg tablet,extended 750 mg PO BEDTIME #90 tabs 12/26/21 release 24 hr Allergies Allergy/AdvReac Type Severity Reaction Status Date / Time insect venom [MOSQUITO] Allergy Unknown UNKNOWN Verified 09/01/21 18:00 paliperidone [From INVEGA] Allergy Unknown DYSTONIC Verified 09/01/21 18:00 REACTION haloperidol [HALOPERIDOL] AdvReac Intermediate Dystonic Verified 09/01/21 18:00 reaction Review of Systems Review of Systems: Constitutional : No Weight loss, No Fever, No Chills, No Fatigue, No Malaise ENT/Mouth : No sore throat, No Rhinorrhea Eyes: No Eye Pain, No Swelling, No Redness Cardiovascular : No Chest Pain, No SOB, No Dyspnea on Exertion, No Orthopnea, No Edema, No Palpitations Respiratory : No Cough, No Sputum, No Wheezing Gastrointestinal : No Nausea, No Vomiting, No Diarrhea, No Constipation, No abdominal Pain, No Hematochezia, No Melena Genitourinary : No Dysuria, No Urinary Frequency, No Hematuria, Musculoskeletal : No joint pain, No Myalgias, No Joint Swelling Skin : No Skin Lesions, No rash Neuro : No Weakness, No Numbness, No Dizziness, No Headache Psych : + Anxiety/Panic, + Depression, No SI or HI All other systems reviewed and are negative Yes all other systems are reviewed and are negative [facility] Past Medical History Attestation statement: The following information was validated with the patient. Source: old records reviewed and nursing notes reviewed Medical History Anxiety Bipolar 1 disorder Bipolar disorder Depression Social History Social History Household Members: Family Household Members Other:: Mom, two little brothers and a little sister. Housing: Apartment Do you presently have visiting nurse or other home services: No Alcohol intake: never Patient Tobacco Use Status: Current everyday Tobacco user Tobacco use type: Cigarette Cigarettes Per Day: 5 Years Smoked: 2 years Smoked in Last 30 Days: Yes e-Cigarette/Vaping Use: Currently Using Second Hand Smoke Exposure: Yes Use of substances other than those prescribed or required for medical reasons: Yes Substance Use Type: Marijuana Substance Use Frequency: Chronic Longstanding Advance Directives: No Advance Directives Information Provided: Yes service: No Sexual orientation: Don't Know Physical Exam Vital Signs: Vital Signs: Last Vital Signs Pulse 90 02/17/22 17:44 Resp 18 02/17/22 17:44 BP 106/76 02/17/22 17:44 Pulse Ox 99 02/17/22 17:44 O2 Del Method 02/17/22 17:44 BMI result Body Mass Index 20.0 Vital signs stable Appearance: Alert.? Oriented X3.? No acute distress.? Patient tearful throughout my examination Head: Normocephalic, atraumatic, no step-offs or deformities Eyes: Pupils equal, round and reactive to light.? CVS: Normal heart rate and rhythm.? Pulses normal.? Respiratory: No respiratory distress.? Breath sounds normal.? Abdomen: Soft and nontender.? Skin: Skin warm and dry.? Normal skin color.? Normal skin turgor.? Extremities: No lower extremity edema.? No calf ttp. 5/5 strength to bilateral upper and lower extremities Neuro: Oriented X 3.? No motor deficit.? No sensory deficit. CN 2-12 intact Course Reevaluation(s) Reevaluation #1: CBC appears to be around patient's baseline. Chemistry with no acute findings. Urine clean. Urine toxicology positive for marijuana. Salicylates, acetaminophen and ethanol negative. Valproic acid level is low. Will continue home meds. COVID negative. Time: 21:34 Reevaluation #2: At this time patient will be placed in physician observation to allow more time to be evaluated by the behavioral health team. At time observation was started patient [facility] cooperative no acute distress will continue to monitor. Time: 21:37 MDM - Psych MDM Narrative Medical decision making narrative: 1816 22-year-old female presents with anxiety, depression, reports increasing life stressors, me that she intermittently thinks about suicide however she would never do it. At this time denying SI and HI. Physical examination benign however, patient tearful throughout my examination. Plan at this time is medical clearance and evaluation by the behavioral health team Medical Records Attestation: I reviewed the patient's medical records. Lab Data Attestation: I reviewed the patient's lab results. Result diagrams: 02/17/22 18:49 02/17/22 18:49 Labs: Lab Results 02/17/22 02/17/22 02/17/22 Range/Units 18:25 18:49 18:49 WBC 5.7 (4.8-10.8) X10*3/uL RBC 4.19 L (4.20-5.50) X10*6/uL Hgb 12.8 (12.0-16.0) g/dl Hct 38.8 (37.0-47.0) % MCV 92.6 (80.0-98.0) fL MCH 30.5 (27.0-33.0) pg MCHC 33.0 (31.0-35.0) g/dl RDW 12.9 (11.0-16.0) % Plt Count 204 (160-400) X10*3/uL MPV 9.4 (9.4-12.3) fL Immature Gran % (Auto) 0.2 (0.0-0.4) % Neut % (Auto) 59.4 (45-73) % Lymph % (Auto) 34.4 (20-40) % [place] % (Auto) 5.1 (2-11) % Eos % (Auto) 0.5 (0-4) % Baso % (Auto) 0.4 (0-2) % Lymph # (Auto) 2.0 (1.2-4.9) X10*3/uL [place] # (Auto) 0.3 (0.1-1.2) X10*3/uL Eos # (Auto) 0.0 (0.0-0.4) X10*3/uL Baso # (Auto) 0.0 (0.0-0.2) X10*3/uL Abs Immat Gran (auto) 0.01 (0.00-0.03) X10*3/uL Absolute Neuts (auto) 3.4 (2.0-8.3) x10*3/uL Absolute Nucleated RBC 0.000 (0.0-0.012) X10*3/uL Nucleated RBC % (auto) 0.0 (0.0-0.2) /100WBC Sodium 141 (135-145) mmol/L Potassium 4.2 (3.3-5.1) mmol/L Chloride 104 (96-108) mmol/L Carbon Dioxide 28 (22-29) mmol/L Anion Gap 13 (12-20) BUN 11 (9-16) mg/dL Creatinine 0.72 (0.5-1.4) mg/dL Estim Creat Clear Calc 105.2 Estimated GFR > 60 Random Glucose 84 (60-115) mg/dL Calcium 9.5 (8.4-10.2) mg/dL Magnesium 1.8 (1.6-2.6) mg/dL Total Bilirubin 0.3 (0.0-1.0) mg/dL AST 15 (5-31) U/L ALT 6 (0-31) U/L Alkaline Phosphatase 57 (39-117) U/L Total Protein 7.2 (6.5-8.0) g/dL Albumin 4.4 (3.5-5.0) g/dL Urine Color Urine Appearance Urine pH (5.0-9.0) Ur Specific [place] (1.005-1.025) Urine Protein (Neg-Trace) mg/dL Urine Glucose (UA) (Negative) mg/dL Urine Ketones (Negative) mg/dL Urine Blood (Negative) Urine Nitrite (Negative) Ur Leukocyte Esterase (Negative) Salicylates < 5.0 L (15-30) mg/dL Urine Opiates Screen (Not Detect) Urine Fentanyl Screen (Not Detect) Acetaminophen < 1 (<30) mcg/mL Ur Barbiturates Screen (Not Detect) Valproic Acid (50.0-100.0) mcg/mL Ur Phencyclidine Scrn (Not Detect) Ur Amphetamines Screen (Not Detect) U Benzodiazepines Scrn (Not Detect) Urine Cocaine Screen (Not Detect) U Marijuana (THC) Screen (Not Detect) Ethyl Alcohol mg/dL COVID-19 (SIENNA) Negative (Negative) COVID-19 Clin Com See Note 02/17/22 02/17/22 02/17/22 Range/Units 18:49 18:49 18:49 WBC (4.8-10.8) X10*3/uL RBC (4.20-5.50) X10*6/uL Hgb (12.0-16.0) g/dl Hct (37.0-47.0) % MCV (80.0-98.0) fL MCH (27.0-33.0) pg MCHC (31.0-35.0) g/dl RDW (11.0-16.0) % Plt Count (160-400) X10*3/uL MPV (9.4-12.3) fL Immature Gran % (Auto) (0.0-0.4) % Neut % (Auto) (45-73) % Lymph % (Auto) (20-40) % [place] % (Auto) (2-11) % Eos % (Auto) (0-4) % Baso % (Auto) (0-2) % Lymph # (Auto) (1.2-4.9) X10*3/uL [place] # (Auto) (0.1-1.2) X10*3/uL Eos # (Auto) (0.0-0.4) X10*3/uL Baso # (Auto) (0.0-0.2) X10*3/uL Abs Immat Gran (auto) (0.00-0.03) X10*3/uL Absolute Neuts (auto) (2.0-8.3) x10*3/uL Absolute Nucleated RBC (0.0-0.012) X10*3/uL Nucleated RBC % (auto) (0.0-0.2) /100WBC Sodium (135-145) mmol/L Potassium (3.3-5.1) mmol/L Chloride (96-108) mmol/L Carbon Dioxide (22-29) mmol/L Anion Gap (12-20) BUN (9-16) mg/dL Creatinine (0.5-1.4) mg/dL Estim Creat Clear Calc Estimated GFR Random Glucose (60-115) mg/dL Calcium (8.4-10.2) mg/dL Magnesium (1.6-2.6) mg/dL Total Bilirubin (0.0-1.0) mg/dL AST (5-31) U/L ALT (0-31) U/L Alkaline Phosphatase (39-117) U/L Total Protein (6.5-8.0) g/dL Albumin (3.5-5.0) g/dL Urine Color Yellow Urine Appearance Clear Urine pH 6.0 (5.0-9.0) Ur Specific [place] >= 1.030 H (1.005-1.025) Urine Protein Negative (Neg-Trace) mg/dL Urine Glucose (UA) Negative (Negative) mg/dL Urine Ketones 15 (Negative) mg/dL Urine Blood Negative (Negative) Urine Nitrite Negative (Negative) Ur Leukocyte Esterase Negative (Negative) Salicylates (15-30) mg/dL Urine Opiates Screen Not Detected (Not Detect) Urine Fentanyl Screen Not Detected (Not Detect) Acetaminophen (<30) mcg/mL Ur Barbiturates Screen Not Detected (Not Detect) Valproic Acid (50.0-100.0) mcg/mL Ur Phencyclidine Scrn Not Detected (Not Detect) Ur Amphetamines Screen Not Detected (Not Detect) U Benzodiazepines Scrn Not Detected (Not Detect) Urine Cocaine Screen Not Detected (Not Detect) U Marijuana (THC) Screen POSITIVE H (Not Detect) Ethyl Alcohol < 10 mg/dL COVID-19 (SIENNA) (Negative) COVID-19 Clin Com 02/17/22 Range/Units 19:31 WBC (4.8-10.8) X10*3/uL RBC (4.20-5.50) X10*6/uL Hgb (12.0-16.0) g/dl Hct (37.0-47.0) % MCV (80.0-98.0) fL MCH (27.0-33.0) pg MCHC (31.0-35.0) g/dl RDW (11.0-16.0) % Plt Count (160-400) X10*3/uL MPV (9.4-12.3) fL Immature Gran % (Auto) (0.0-0.4) % Neut % (Auto) (45-73) % Lymph % (Auto) (20-40) % [place] % (Auto) (2-11) % Eos % (Auto) (0-4) % Baso % (Auto) (0-2) % Lymph # (Auto) (1.2-4.9) X10*3/uL [place] # (Auto) (0.1-1.2) X10*3/uL Eos # (Auto) (0.0-0.4) X10*3/uL Baso # (Auto) (0.0-0.2) X10*3/uL Abs Immat Gran (auto) (0.00-0.03) X10*3/uL Absolute Neuts (auto) (2.0-8.3) x10*3/uL Absolute Nucleated RBC (0.0-0.012) X10*3/uL Nucleated RBC % (auto) (0.0-0.2) /100WBC Sodium (135-145) mmol/L Potassium (3.3-5.1) mmol/L Chloride (96-108) mmol/L Carbon Dioxide (22-29) mmol/L Anion Gap (12-20) BUN (9-16) mg/dL Creatinine (0.5-1.4) mg/dL Estim Creat Clear Calc Estimated GFR Random Glucose (60-115) mg/dL Calcium (8.4-10.2) mg/dL Magnesium (1.6-2.6) mg/dL Total Bilirubin (0.0-1.0) mg/dL AST (5-31) U/L ALT (0-31) U/L Alkaline Phosphatase (39-117) U/L Total Protein (6.5-8.0) g/dL Albumin (3.5-5.0) g/dL Urine Color Urine Appearance Urine pH (5.0-9.0) Ur Specific [place] (1.005-1.025) Urine Protein (Neg-Trace) mg/dL Urine Glucose (UA) (Negative) mg/dL Urine Ketones (Negative) mg/dL Urine Blood (Negative) Urine Nitrite (Negative) Ur Leukocyte Esterase (Negative) Salicylates (15-30) mg/dL Urine Opiates Screen (Not Detect) Urine Fentanyl Screen (Not Detect) Acetaminophen (<30) mcg/mL Ur Barbiturates Screen (Not Detect) Valproic Acid 37.4 L (50.0-100.0) mcg/mL Ur Phencyclidine Scrn (Not Detect) Ur Amphetamines Screen (Not Detect) U Benzodiazepines Scrn (Not Detect) Urine Cocaine Screen (Not Detect) U Marijuana (THC) Screen (Not Detect) Ethyl Alcohol mg/dL COVID-19 (SIENNA) (Negative) COVID-19 Clin Com Critical Care Time Critical Care Time Critical Care Time: No Discharge Plan Discharge Clinical Impression: Depression, Acute anxiety Patient Disposition: Still a Patient Prescriptions: No Action trazodone 100 mg tablet 1 tab PO BEDTIME PRN (Reason: Insomnia) hydroxyzine HCl 25 mg tablet 1 tab PO BEDTIME PRN (Reason: Anxiety) bupropion HCl [Wellbutrin SR] 150 mg tablet sustained-release 12 hr 150 mg PO DAILY Qty: 30 0RF aripiprazole 15 mg tablet 15 mg PO BEDTIME Qty: 30 0RF divalproex 250 mg tablet extended release 24 hr 750 mg PO BEDTIME Qty: 90 0RF clonazepam 0.5 mg tablet 1 tab PO DAILY PRN (Reason: Anxiety)
[2022-02-17 18:45] LABS: COVID-19 Test Negative (Negative)
[2022-02-17 18:54] LABS: MANUAL DIFF FLAG NO
[2022-02-17 18:56] LABS: Basophils Percent Auto 0.4 % (0-2); Eosinophils Percent Auto 0.5 % (0-4); Hematocrit 38.8 % (37.0-47.0); Hemoglobin 12.8 g/dl (12.0-16.0); Imm Gran Abs Auto 0.01 X10*3/uL (0.00-0.03); Imm Gran Pct Auto 0.2 % (0.0-0.4); Lymphocytes Percent Auto 34.4 % (20-40); Mean Corpuscular Hemoglobin 30.5 pg (27.0-33.0); Mean Corpuscular Volume 92.6 fL (80.0-98.0); Mean Platelet Volume 9.4 fL (9.4-12.3); Monocytes Absolute Auto 0.3 X10*3/uL (0.1-1.2); Monocytes Percent Auto 5.1 % (2-11); Neutrophils Absolute Auto 3.4 x10*3/uL (2.0-8.3); Neutrophils Percent Auto 59.4 % (45-73); Platelet Count 204 X10*3/uL (160-400); Red Blood Count 4.19 X10*6/uL (4.20-5.50); Red Cell Distribution Width 12.9 % (11.0-16.0); White Blood Count 5.7 X10*3/uL (4.8-10.8)
[2022-02-17 19:01] LABS: Appearance Urine Clear; Color Urine Yellow; Glucose Urine UA Negative (Negative); Leukocyte Esterase Urine Negative (Negative); Nitrite Urine Negative (Negative); Specific Gravity - Urine >= 1.030 (1.005-1.025); Urine Blood Negative (Negative); Urine Ketones 15 mg/dL (Negative); Urine Protein Negative (Neg-Trace)
[2022-02-17 19:15] LABS: Ethanol < 10 mg/dL
[2022-02-17 19:16] LABS: Amphetamine Screen Urine Not Detected (Not Detect); Barbiturates, Urine Not Detected (Not Detect); Benzodiazepines Screen Urine Not Detected (Not Detect); Cannabinoid Screen Urine POSITIVE (Not Detect); Cocaine Screen Urine Not Detected (Not Detect); Fentanyl, urine Not Detected (Not Detect); Opiate Screen Urine Not Detected (Not Detect); Phencyclidine Screen Urine Not Detected (Not Detect)
[2022-02-17 19:18] LABS: Acetaminophen LAB < 1 mcg/mL (<30); Alanine Aminotransferase 6 U/L (0-31); Albumin Level 4.4 g/dL (3.5-5.0); Alkaline Phosphatase 57 U/L (39-117); Anion Gap 13 (12-20); Aspartate Amino Transferase 15 U/L (5-31); Bilirubin Total 0.3 mg/dL (0.0-1.0); Blood Urea Nitrogen 11 mg/dL (9-16); Calcium 9.5 mg/dL (8.4-10.2); Carbon Dioxide 28 mmol/L (22-29); Chloride 104 mmol/L (96-108); Creatinine Clr Calc Pharmacy 105.2; Estimated Glomerular Filt Rate > 60; Glucose Random 84 mg/dL (60-115); Magnesium 1.8 mg/dL (1.6-2.6); Potassium 4.2 mmol/L (3.3-5.1); Salicylate < 5.0 mg/dL (15-30); Sodium 141 mmol/L (135-145); Total Protein 7.2 g/dL (6.5-8.0)
--- NOTE | 2022-02-17 19:28 | MHC.CARE ---
Smart sheet submitted
[2022-02-17 20:04] LABS: Valproate 37.4 mcg/mL (50.0-100.0)
--- NOTE | 2022-02-17 20:43 | PHA.MEDREC ---
Pharmacy Consult ? Medication Reconciliation Pharmacy has completed the medication reconciliation. RN COMPLETED MED REC- PHARMACY REVIEWED
[2022-02-17] MEDS: ARIPiprazole 15 MG TABLET PO (21:48)
[2022-02-17] MEDS: Divalproex Sodium ER 250 MG TAB.ER.24H 750 MG PO (21:53)
--- NOTE | 2022-02-18 02:00 | PC.NURSE ---
Patient sleeping comfortably, no distress noted. Will continue to monitor.
--- NOTE | 2022-02-18 06:16 | PC.NURSE ---
Patient sleeping comfortably, no distress noted. Will continue to monitor.
[2022-02-18 06:47] VITALS: RESP 14
[2022-02-18 09:31] VITALS: BP 92/57; PULSE 69; RESP 16; TEMP 37; O2SAT 98
--- NOTE | 2022-02-18 10:28 | PC.NURSE ---
Dr. Reeves aware of patients low BP
[2022-02-18] MEDS: LORazepam 1 MG TABLET 2 MG PO (12:39)
[2022-02-18 16:24] VITALS: BP 101/65; PULSE 103; RESP 15; TEMP 36.3; O2SAT 100
[2022-02-18] MEDS: Divalproex Sodium ER 250 MG TAB.ER.24H 750 MG PO (19:48)
[2022-02-18] MEDS: ARIPiprazole 15 MG TABLET PO (19:48)
[2022-02-18] MEDS: clonazePAM 0.5 MG TABLET PO (20:29)
--- NOTE | 2022-02-18 22:19 | PC.NURSE ---
1900 Patient was by the nurses station around 7pm, agitated, calling out she was a black woman and she didn't want white people to take care of her, at this time she was reoriented about her safety, Ativan and Zyprexa po given, she agreed to get back to her room. Safety and monitor continue. 1999 Patient in her room sleeping comfortable. will continue to monitor. 2199 Patient was up for her pm meds, she was pleasant and cooperative. Will continue to monitor.
--- NOTE | 2022-02-18 22:29 | PC.NURSE ---
Patient was up watching TV, pleasant cooperative, reporting feeling anxious, Klonopin po given. with her pm meds. Will continue to monitor. 2200 Patient sleeping comfortably, no distress noted. Will continue to monitor.
[2022-02-19 04:31] VITALS: BP 107/64; PULSE 78; RESP 15; TEMP 36.4; O2SAT 99
--- NOTE | 2022-02-19 06:44 | PC.NURSE ---
Patient sleeping comfortably, no distress noted. Will continue to monitor.
[2022-02-19] MEDS: buPROPion HCl XL 150 MG TAB.ER.24H PO (10:13)
--- NOTE | 2022-02-19 13:30 | PC.NURSE ---
pt was given d/c paperwork for home and this rn was told by care team (malcolm) to hold d/c at this time.
[2022-02-19 13:31] VITALS: BP 99/63; PULSE 86; RESP 18; TEMP 37; O2SAT 99
--- NOTE | 2022-02-19 14:03 | PC.NURSE ---
pt is in her room and is tearful and states that she wants to go home, per pt.
--- NOTE | 2022-02-19 14:15 | PC.NURSE ---
care team (kathie) at bedside , pt aware of plan of care.
--- NOTE | 2022-02-20 11:14 | MHC.CARE ---
CARE Team speaks with pt?s Psychiatrist, Joanna Sarah from [facility] ([phone]).? Ms Smith stated that pt has monthly appointments with her, over the phone.? Ms. Smith is still working from home.??? Ms. Smith discussed the following challenges with effectively treating pt: Pt does not regularly attend her scheduled appointments and often cannot be located when Ms. Smith calls.? Often times, if pt does not answer, Ms. Smith will call pt?s Mother, but pt?s Mother?s phone is not always in service nor is there reliable internet in the home. Pt does not take her medications regularly.? There was discussion about a visiting nurse administering the medications but pt?s Mother will not allow that. Ms. Smith has scheduled an appointment for Next 02/26 at 1340.
--- NOTE | 2022-02-20 12:36 | MHC.CARE ---
CARE Team conducts a follow up call with pt.? Pt reports that she is ?Doing pretty good!?? She cannot specify why but states that she is in a much better frame of mind than she was yesterday.? CARE Team advised her that her psychiatrist, Dr. Joanna Smith has scheduled an appointment for her on 02/26.? CARE Team suggested that pt discuss the potential for her medications to be moved to [facility] so they can be delivered to her home.? In the past, getting her medications has been a challenge for pt.? CARE Team suggested that she place a reminder note nearby so she doesn?t forget to have that conversation. Pt was updated on her status with [facility], there has been no intake appointment identified yet.? CARE Team has reached out to [facility] to inquire about any cancellations.
--- NOTE | 2022-02-21 17:46 | MHC.CARE ---
Care Team attempted to contact pt for a follow up call, this bond writer was unable to leave a voice message.
== END 2022-02-19 14:45 | disposition home or self-care (01) ==
PROVIDERS: Physician Assistant; Emergency Provider Emergency Medicine
DX: F33.1 Major depressive disorder, recurrent, moderate (principal); F41.1 Generalized anxiety disorder; F43.0 Acute stress reaction; Z79.899 Other long term (current) drug therapy; F17.210 Nicotine dependence, cigarettes, uncomplicated; Z71.6 Tobacco abuse counseling; Z20.822 Contact with and (suspected) exposure to COVID-19
CPT/HCPCS: 36415; 80053; 80143; 80164; 80179; 80307; 81003; 82077; 83735; 85025; 87635; 99284; 99285

== ENCOUNTER 2022-03-09 17:58 | Inpatient (IN) | payer OTHER, MEDICAID, SELFPAY ==
[2022-03-09 18:01] VITALS: BP 105/65; PULSE 79; RESP 16; TEMP 36.8; O2SAT 99; BMI 20.1
--- NOTE | 2022-03-09 18:12 | ED_ITS ---
HPI - Psych General Chief Complaint: Psychiatric Symptoms Stated Complaint: psych Time Seen by Provider: 03/09/22 18:09 Source: patient Mode of arrival: ambulatory Limitations: no limitations History of Present Illness HPI Narrative: 22-year-old female history of bipolar disorder, PTSD, eating disorder presents to the emergency department with complaints of worsening depression over the last few weeks. Patient states she has thoughts of hurting herself. Patient reports if there was a painless, easy way to do so she would kill herself in a heartbeat. Patient states her therapist made her come to the emergency department for thoughts of self-harm. Patient reports that she stopped taking her medication 2 days ago as she does not like it anymore. She denies homicidal ideation. Denies visual auditory and tactile hallucinations. Patient reports smoking marijuana however denies tobacco, alcohol, illicit drug use. Denies medical complaints. Patient was very tearful upon history taking. Related Data Home Medications Medication Instructions Recorded Confirmed hydroxyzine HCl 25 mg tablet 1 tab PO BEDTIME PRN Anxiety 12/24/21 03/09/22 trazodone 100 mg tablet 1 tab PO BEDTIME PRN Insomnia 12/24/21 03/09/22 clonazepam 0.5 mg tablet 1 tab PO DAILY PRN Anxiety 01/06/22 03/09/22 Previous Rx's Medication Instructions Recorded aripiprazole 15 mg tablet 15 mg PO BEDTIME #30 tabs 12/26/21 bupropion HCl 150 mg tablet,12 hr 150 mg PO DAILY #30 tabs 12/26/21 sustained-release (Wellbutrin SR) divalproex 250 mg tablet,extended 750 mg PO BEDTIME #90 tabs 12/26/21 release 24 hr Allergies Allergy/AdvReac Type Severity Reaction Status Date / Time insect venom [MOSQUITO] Allergy Unknown UNKNOWN Verified 03/09/22 18:01 paliperidone [From INVEGA] Allergy Unknown DYSTONIC Verified 03/09/22 18:01 REACTION haloperidol [HALOPERIDOL] AdvReac Intermediate Dystonic Verified 03/09/22 18:01 reaction Review of Systems Review of Systems: Constitutional : No Weight loss, No Fever, No Chills, No Fatigue, No Malaise ENT/Mouth : No sore throat, No Rhinorrhea Eyes: No Eye Pain, No Swelling, No Redness Cardiovascular : No Chest Pain, No SOB, No Dyspnea on Exertion, No Orthopnea, No Edema, No Palpitations Respiratory : No Cough, No Sputum, No Wheezing Gastrointestinal : No Nausea, No Vomiting, No Diarrhea, No Constipation, No abdominal Pain, No Hematochezia, No Melena Genitourinary : No Dysuria, No Urinary Frequency, No Hematuria, Musculoskeletal : No joint pain, No Myalgias, No Joint Swelling Skin : No Skin Lesions, No rash Neuro : No Weakness, No Numbness, No Dizziness, No Headache Psych : + Anxiety/Panic, + Depression, + SI, No HI Yes all other systems are reviewed and are negative [facility] Past Medical History Attestation statement: The following information was validated with the patient. Source: old records reviewed and nursing notes reviewed Medical History Anxiety Bipolar 1 disorder Bipolar disorder Depression Social History Social History Household Members: Family Household Members Other:: Mom, two little brothers and a little sister. Housing: Apartment Do you presently have visiting nurse or other home services: No Alcohol intake: never Patient Tobacco Use Status: Current everyday Tobacco user Tobacco use type: Cigarette Cigarettes Per Day: 5 Years Smoked: 2 years e-Cigarette/Vaping Use: Currently Using Second Hand Smoke Exposure: Yes Substance Use Type: Marijuana Advance Directives: No Advance Directives Information Provided: No service: No Sexual orientation: Don't Know Physical Exam Vital Signs: Vital Signs: Last Vital Signs Temp 98.2 F 03/09/22 18:01 Pulse 79 03/09/22 18:01 Resp 16 03/09/22 18:01 BP 105/65 03/09/22 18:01 Pulse Ox 99 03/09/22 18:01 O2 Del Method 03/09/22 18:01 BMI result Body Mass Index 20.1 vss Appearance: Alert.? Oriented X3.? No acute distress.? Head: Normocephalic, atraumatic, no step-offs or deformities Eyes: Pupils equal, round and reactive to light.? Neck: Normal inspection.? Neck supple.? CVS: Normal heart rate and rhythm.? Pulses normal.? Respiratory: No respiratory distress.? Breath sounds normal.? Abdomen: Soft and nontender.? Skin: Skin warm and dry.? Normal skin color.? Normal skin turgor.? Extremities: No lower extremity edema.? No calf ttp. 5/5 strength to bilateral upper and lower extremities Neuro: Oriented X 3.? No motor deficit.? No sensory deficit. CN 2-12 intact Course Reevaluation(s) Reevaluation #1: CBC appears to be within normal limits. Chemistry with no acute electrolyte abnormalities requiring intervention. Urine toxicology positive for marijuana negative for ethanol. COVID negative. At this time patient will be placed into physician observation to allow more time to be evaluated by the behavioral health team. At time observation was started patient [facility] cooperative no acute distress will continue to monitor. Time: 22:01 MDM - Psych MDM Narrative Medical decision making narrative: 1824 22-year-old female presents to the emergency department for worsening depression and suicidal ideations Benign physical exam. Plan at this time is medical clearance and to be evaluated by the behavioral health team. Medical Records Attestation: I reviewed the patient's medical records. Lab Data Attestation: I reviewed the patient's lab results. Result diagrams: 03/09/22 20:43 03/09/22 20:43 Labs: Lab Results 03/09/22 03/09/22 03/09/22 Range/Units 18:47 19:01 20:43 WBC 6.5 (4.8-10.8) X10*3/uL RBC 4.37 (4.20-5.50) X10*6/uL Hgb 13.2 (12.0-16.0) g/dl Hct 39.5 (37.0-47.0) % MCV 90.4 (80.0-98.0) fL MCH 30.2 (27.0-33.0) pg MCHC 33.4 (31.0-35.0) g/dl RDW 11.9 (11.0-16.0) % Plt Count 253 (160-400) X10*3/uL MPV 9.4 (9.4-12.3) fL Immature Gran % (Auto) 0.2 (0.0-0.4) % Neut % (Auto) 59.4 (45-73) % Lymph % (Auto) 34.7 (20-40) % [place] % (Auto) 4.8 (2-11) % Eos % (Auto) 0.6 (0-4) % Baso % (Auto) 0.3 (0-2) % Lymph # (Auto) 2.3 (1.2-4.9) X10*3/uL [place] # (Auto) 0.3 (0.1-1.2) X10*3/uL Eos # (Auto) 0.0 (0.0-0.4) X10*3/uL Baso # (Auto) 0.0 (0.0-0.2) X10*3/uL Abs Immat Gran (auto) 0.01 (0.00-0.03) X10*3/uL Absolute Neuts (auto) 3.9 (2.0-8.3) x10*3/uL Absolute Nucleated RBC 0.000 (0.0-0.012) X10*3/uL Nucleated RBC % (auto) 0.0 (0.0-0.2) /100WBC Sodium (135-145) mmol/L Potassium (3.3-5.1) mmol/L Chloride (96-108) mmol/L Carbon Dioxide (22-29) mmol/L Anion Gap (12-20) BUN (9-16) mg/dL Creatinine (0.5-1.4) mg/dL Estim Creat Clear Calc Estimated GFR Random Glucose (60-115) mg/dL Calcium (8.4-10.2) mg/dL Magnesium (1.6-2.6) mg/dL Total Bilirubin (0.0-1.0) mg/dL AST (5-31) U/L ALT (0-31) U/L Alkaline Phosphatase (39-117) U/L Total Protein (6.5-8.0) g/dL Albumin (3.5-5.0) g/dL Urine Opiates Screen Not Detected (Not Detect) Urine Fentanyl Screen Not Detected (Not Detect) Ur Barbiturates Screen Not Detected (Not Detect) Ur Phencyclidine Scrn Not Detected (Not Detect) Ur Amphetamines Screen Not Detected (Not Detect) U Benzodiazepines Scrn Not Detected (Not Detect) Urine Cocaine Screen Not Detected (Not Detect) U Marijuana (THC) Screen POSITIVE H (Not Detect) Ethyl Alcohol mg/dL COVID-19 (SIENNA) Negative (Negative) COVID-19 Clin Com See Note 10/31/22 Range/Units 20:43 WBC (4.8-10.8) X10*3/uL RBC (4.20-5.50) X10*6/uL Hgb (12.0-16.0) g/dl Hct (37.0-47.0) % MCV (80.0-98.0) fL MCH (27.0-33.0) pg MCHC (31.0-35.0) g/dl RDW (11.0-16.0) % Plt Count (160-400) X10*3/uL MPV (9.4-12.3) fL Immature Gran % (Auto) (0.0-0.4) % Neut % (Auto) (45-73) % Lymph % (Auto) (20-40) % [place] % (Auto) (2-11) % Eos % (Auto) (0-4) % Baso % (Auto) (0-2) % Lymph # (Auto) (1.2-4.9) X10*3/uL Gregory # (Auto) (0.1-1.2) X10*3/uL Eos # (Auto) (0.0-0.4) X10*3/uL Baso # (Auto) (0.0-0.2) X10*3/uL Abs Immat Gran (auto) (0.00-0.03) X10*3/uL Absolute Neuts (auto) (2.0-8.3) x10*3/uL Absolute Nucleated RBC (0.0-0.012) X10*3/uL Nucleated RBC % (auto) (0.0-0.2) /100WBC Sodium 144 (135-145) mmol/L Potassium 4.3 (3.3-5.1) mmol/L Chloride 106 (96-108) mmol/L Carbon Dioxide 29 (22-29) mmol/L Anion Gap 13 (12-20) BUN 9 (9-16) mg/dL Creatinine 0.73 (0.5-1.4) mg/dL Estim Creat Clear Calc 108.1 Estimated GFR > 60 Random Glucose 104 (60-115) mg/dL Calcium 9.7 (8.4-10.2) mg/dL Magnesium 1.8 (1.6-2.6) mg/dL Total Bilirubin < 0.2 (0.0-1.0) mg/dL AST 15 (5-31) U/L ALT 7 (0-31) U/L Alkaline Phosphatase 59 (39-117) U/L Total Protein 7.5 (6.5-8.0) g/dL Albumin 4.3 (3.5-5.0) g/dL Urine Opiates Screen (Not Detect) Urine Fentanyl Screen (Not Detect) Ur Barbiturates Screen (Not Detect) Ur Phencyclidine Scrn (Not Detect) Ur Amphetamines Screen (Not Detect) U Benzodiazepines Scrn (Not Detect) Urine Cocaine Screen (Not Detect) U Marijuana (THC) Screen (Not Detect) Ethyl Alcohol < 10 mg/dL COVID-19 (SIENNA) (Negative) COVID-19 Clin Com Critical Care Time Critical Care Time Critical Care Time: No Discharge Plan Discharge Clinical Impression: Suicidal ideation, Depression Patient Disposition: Still a Patient Prescriptions: No Action trazodone 100 mg tablet 1 tab PO BEDTIME PRN (Reason: Insomnia) hydroxyzine HCl 25 mg tablet 1 tab PO BEDTIME PRN (Reason: Anxiety) bupropion HCl [Wellbutrin SR] 150 mg tablet sustained-release 12 hr 150 mg PO DAILY Qty: 30 0RF aripiprazole 15 mg tablet 15 mg PO BEDTIME Qty: 30 0RF divalproex 250 mg tablet extended release 24 hr 750 mg PO BEDTIME Qty: 90 0RF clonazepam 0.5 mg tablet 1 tab PO DAILY PRN (Reason: Anxiety)
--- NOTE | 2022-03-09 18:30 | PC.NURSE ---
med rec completed w pts medication bottles.
--- NOTE | 2022-03-09 19:04 | PHA.MEDREC ---
Pharmacy Consult ? Medication Reconciliation Pharmacy has reviewed the medication reconciliation done by Jean Carlos
[2022-03-09 19:18] LABS: COVID-19 Test Negative (Negative)
[2022-03-09 19:34] LABS: Amphetamine Screen Urine Not Detected (Not Detect); Barbiturates, Urine Not Detected (Not Detect); Benzodiazepines Screen Urine Not Detected (Not Detect); Cannabinoid Screen Urine POSITIVE (Not Detect); Cocaine Screen Urine Not Detected (Not Detect); Fentanyl, urine Not Detected (Not Detect); Opiate Screen Urine Not Detected (Not Detect); Phencyclidine Screen Urine Not Detected (Not Detect)
[2022-03-09 21:04] LABS: Basophils Percent Auto 0.3 % (0-2); Eosinophils Percent Auto 0.6 % (0-4); Hematocrit 39.5 % (37.0-47.0); Hemoglobin 13.2 g/dl (12.0-16.0); Imm Gran Abs Auto 0.01 X10*3/uL (0.00-0.03); Imm Gran Pct Auto 0.2 % (0.0-0.4); Lymphocytes Absolute Auto 2.3 X10*3/uL (1.2-4.9); Lymphocytes Percent Auto 34.7 % (20-40); MANUAL DIFF FLAG NO; Mean Corpuscular HGB Conc 33.4 g/dl (31.0-35.0); Mean Corpuscular Hemoglobin 30.2 pg (27.0-33.0); Mean Corpuscular Volume 90.4 fL (80.0-98.0); Mean Platelet Volume 9.4 fL (9.4-12.3); Monocytes Absolute Auto 0.3 X10*3/uL (0.1-1.2); Monocytes Percent Auto 4.8 % (2-11); Neutrophils Absolute Auto 3.9 x10*3/uL (2.0-8.3); Neutrophils Percent Auto 59.4 % (45-73); Platelet Count 253 X10*3/uL (160-400); Red Blood Count 4.37 X10*6/uL (4.20-5.50); Red Cell Distribution Width 11.9 % (11.0-16.0); White Blood Count 6.5 X10*3/uL (4.8-10.8)
[2022-03-09 21:27] LABS: Alanine Aminotransferase 7 U/L (0-31); Albumin Level 4.3 g/dL (3.5-5.0); Alkaline Phosphatase 59 U/L (39-117); Anion Gap 13 (12-20); Aspartate Amino Transferase 15 U/L (5-31); Bilirubin Total < 0.2 mg/dL (0.0-1.0); Blood Urea Nitrogen 9 mg/dL (9-16); Calcium 9.7 mg/dL (8.4-10.2); Carbon Dioxide 29 mmol/L (22-29); Chloride 106 mmol/L (96-108); Creatinine Clr Calc Pharmacy 108.1; Estimated Glomerular Filt Rate > 60; Ethanol < 10 mg/dL; Glucose Random 104 mg/dL (60-115); Magnesium 1.8 mg/dL (1.6-2.6); Potassium 4.3 mmol/L (3.3-5.1); Sodium 144 mmol/L (135-145); Total Protein 7.5 g/dL (6.5-8.0)
[2022-03-09] MEDS: traZODone HCL 100 MG TABLET PO (23:45)
[2022-03-09 23:47] VITALS: BP 104/61; PULSE 73; RESP 16; TEMP 36.3; O2SAT 98
--- NOTE | 2022-03-10 07:20 | PC.NURSE ---
patient appears to remain asleep respirations are even and unlabored patient appears in no distress
[2022-03-10 17:56] VITALS: BP 102/58; PULSE 94; RESP 18; TEMP 36.5; O2SAT 100
--- NOTE | 2022-03-10 18:31 | PC.ADMIT ---
Lauren is a 22-year-old female who presented to [facility] with her therapist after she expressed SI and worsening depression during her therapy session. CV signed. Pt has intent to take pills or find another way that is ?quick and painless.? Per crisis eval, pt stated she over eats and has gained 20 pounds over three months. Pt is depressed & tearful at times, affect is congruent. Thought process is clear. Pt has a history of several inpatient hospitalizations, most recent on [facility] 02/19/22. Pt stated contradicting reasons why she was admitted. She first said she stopped taking her Wellbutrin a few days ago because it made her feel depressed, agitated, and angry. She also said it worked well and I felt better so I stopped taking it. Pt hopes to have medications adjusted during her stay. Pt denies SI/HI/AH/VH and feels safe on the unit.
[2022-03-10 20:00] VITALS: BP 106/65; PULSE 92; RESP 18; TEMP 36.6; O2SAT 98
[2022-03-10] MEDS: ARIPiprazole 15 MG TABLET PO (20:35)
[2022-03-10] MEDS: traZODone HCL 50 MG TABLET PO (20:35)
[2022-03-10] MEDS: Divalproex Sodium ER 250 MG TAB.ER.24H 750 MG PO (20:35)
[2022-03-10] MEDS: traZODone HCL 100 MG TABLET PO (20:36)
[2022-03-11 09:00] VITALS: BP 106/57; PULSE 75; RESP 16; TEMP 35.9; O2SAT 99
[2022-03-11 10:01] LABS: Alanine Aminotransferase 7 U/L (0-31); Albumin Level 4.6 g/dL (3.5-5.0); Alkaline Phosphatase 62 U/L (39-117); Anion Gap 13 (12-20); Aspartate Amino Transferase 16 U/L (5-31); Bilirubin Total 0.2 mg/dL (0.0-1.0); Blood Urea Nitrogen 10 mg/dL (9-16); Calcium 9.9 mg/dL (8.4-10.2); Carbon Dioxide 30 mmol/L (22-29); Chloride 102 mmol/L (96-108); Cholesterol 194 mg/dL; Creatinine Clr Calc Pharmacy 98.7; Estimated Glomerular Filt Rate > 60; Glucose Fasting 101 mg/dL (60-99); HDL Cholesterol 58 mg/dL; LDL Cholesterol Calculated 121 mg/dl; Potassium 4.2 mmol/L (3.3-5.1); Sodium 141 mmol/L (135-145); Triglycerides 75 mg/dL
[2022-03-11] MEDS: lamoTRIgine 25 MG TABLET PO (13:55)
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
[2022-03-11 22:40] VITALS: BP 98/53; PULSE 87; RESP 18; TEMP 36.1; O2SAT 98
[2022-03-11] MEDS: traZODone HCL 50 MG TABLET PO (22:53)
[2022-03-11] MEDS: ARIPiprazole 15 MG TABLET PO (22:53)
[2022-03-11] MEDS: Divalproex Sodium ER 500 MG TAB.ER.24H 1000 MG PO (22:53)
[2022-03-11] MEDS: traZODone HCL 100 MG TABLET PO (22:53)
[2022-03-12] MEDS: hydrOXYzine HCL 25 MG TABLET PO (05:46)
[2022-03-12 11:19] VITALS: BP 107/61; PULSE 88; RESP 18; TEMP 36.6; O2SAT 100
--- NOTE | 2022-03-12 14:46 | HO.PSYCHPN ---
Subjective Subjective Date of Service: 03/12/22 Reason For Visit: suicidal ideation Interim History: found resting in bed. calm and cooperative. discuss meds regimen, pt reaffirms her commitment to it after discussion. reports no change in mood in the past 24H. verifies she wanted to restart lamictal bcse it had been helpful for her in the past. per staff, isolative. not attending groups. denies SI/HI/AVH. anx 5, dep 7. eating well. more hopeful about her future now that she has a plan in place. slept well last night. Mental Status Exam Mental Status Exam Narrative: A&O. Pt is in casual attire, short hair, thin body habitus, not malodorous. fair eye contact, attentive. No Tics or Tremors. No abnormal involuntary movements. cooperative, engaged. spontaneous speech with regular rate and rhythm, normal amount, loudness, and prosody. No prolonged speech latency or dysarthria. Mood is unchanged, affect is normo-intense, non-labile. no SI/HI/AVH expressed. Thoughts are linear and logical, no delusions or paranoia evident. No known cognitive or memory impairment. Insight/ Judgment adequate. Diagnostics Vital Signs (24Hr): Vital Signs - 24 hr 03/11/22 22:40 03/12/22 11:19 Temperature 96.9 F 97.9 F Pulse Rate 87 88 Respiratory Rate 18 18 Blood Pressure 98/53 L 107/61 Pulse Oximetry 98 100 Oxygen Delivery Method Room Air Room Air BMI result Body Mass Index 20.1 Labs Results: 03/09/22 20:43 03/11/22 08:48 Labs: Laboratory Results - last 48 hr 03/11/22 08:48 Sodium 141 Potassium 4.2 Chloride 102 Carbon Dioxide 30 H Anion Gap 13 BUN 10 Creatinine 0.80 Estim Creat Clear Calc 98.7 Estimated GFR > 60 Fasting Glucose 101 H Calcium 9.9 Total Bilirubin 0.2 AST 16 ALT 7 Alkaline Phosphatase 62 Total Protein 8.0 Albumin 4.6 Triglycerides 75 Cholesterol 194 LDL Cholesterol, Calc 121 HDL Cholesterol 58 Medications Medications Current Medications Acetaminophen (Acetaminophen 325 Mg Tablet) 650 mg PO Q6H PRN PRN Reason: Headache/Pain Mild Scale (1-3) Al Hydroxide/Mg Hydroxide (Magnesium Hydrox/Alum Hydrox 30 Ml Oral.Susp) 30 ml PO Q6H PRN PRN Reason: Heartburn/Nausea Aripiprazole (Aripiprazole 15 Mg Tablet) 15 mg PO BEDTIME [place] Last Admin: 03/11/22 22:53 Dose: 15 mg Clonazepam (Clonazepam 0.5 Mg Tablet) 0.5 mg PO DAILY PRN PRN Reason: Anxiety Divalproex Sodium (Divalproex Sodium Er 500 Mg Tab.Er.24h) 1,000 mg PO BEDTIME [place] Last Admin: 03/11/22 22:53 Dose: 1,000 mg Hydroxyzine HCl (Hydroxyzine Hcl 25 Mg Tablet) 25 mg PO BEDTIME PRN PRN Reason: Anxiety Hydroxyzine HCl (Hydroxyzine Hcl 25 Mg Tablet) 25 mg PO Q6H PRN PRN Reason: Anxiety Last Admin: 03/12/22 05:46 Dose: 25 mg Magnesium Hydroxide (Milk Of Magnesia 30 Ml Oral.Susp) 30 ml PO DAILY PRN PRN Reason: Constipation Pharmacy Consult (Consult Rx Perform Med Rec) 1 each MISCELLANE ONCE PRN PRN Reason: Consult order Trazodone HCl (Trazodone Hcl 50 Mg Tablet) 50 mg PO BEDTIME PRN PRN Reason: Insomnia Last Admin: 03/11/22 22:53 Dose: 50 mg Trazodone HCl (Trazodone Hcl 50 Mg Tablet) 150 mg PO BEDTIME [facility] Allergies Allergies Allergy/AdvReac Type Severity Reaction Status Date / Time insect venom [MOSQUITO] Allergy Unknown UNKNOWN Verified 03/09/22 18:01 paliperidone [From INVEGA] Allergy Unknown DYSTONIC Verified 03/09/22 18:01 REACTION haloperidol [HALOPERIDOL] AdvReac Intermediate Dystonic Verified 03/09/22 18:01 reaction Assessment & Plan Assessment & Plan (1) Bipolar 1 disorder: Status: Acute Code(s): F31.9 - Bipolar disorder, unspecified Plan 03/11: depressive episode DC wellbutrin per pt preference. start lamictal for anti-depressant efficacy in bipolar disorder. increase VPA from 750 mg QHS to 1000 mg QHS for mood stabilization. due to VPA-lamictal interaction, will have to dose lamictal low and increase to max of 100 mg daily. lamictal 25 mg PO QOD is recommended as starting dose. 03/12: continue current mgmt. no change in Sx. I spent ___25___ minutes with the patient and/or on the patient floor today, greater than?50% of which was spent counseling/coordinating care. Reason for contiued inpatient stay Substantial Risk for: harm to self, inability to function and rapid decompensation
[2022-03-12 20:15] VITALS: BP 97/58; PULSE 83; RESP 16; TEMP 36.3; O2SAT 99
[2022-03-12] MEDS: ARIPiprazole 15 MG TABLET PO (20:55)
[2022-03-12] MEDS: traZODone HCL 50 MG TABLET 150 MG PO (20:55)
[2022-03-12] MEDS: Divalproex Sodium ER 500 MG TAB.ER.24H 1000 MG PO (20:55)
[2022-03-13 09:43] VITALS: BP 103/58; PULSE 86; RESP 18; TEMP 36.2; O2SAT 97
[2022-03-13] MEDS: lamoTRIgine 25 MG TABLET PO (09:47)
--- NOTE | 2022-03-13 16:41 | HO.PSYCHPN ---
Subjective Subjective Date of Service: 03/13/22 Reason For Visit: suicidal ideation Interim History: calm, cooperative. reports she is feeling slightly better mood-gomez. discuss whether or not to restart wellbutrin, she says no, thinking perhaps it was causing her anger/irritation. per staff, lots of time in bed days. slept well, med-compliant. 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 Mental Status Exam Mental Status Exam Narrative: A&O. Pt is in casual attire, short hair, thin body habitus, not malodorous. fair eye contact, attentive. No Tics or Tremors. No abnormal involuntary movements. cooperative, engaged. spontaneous speech with regular rate and rhythm, normal amount, loudness, and prosody. No prolonged speech latency or dysarthria. Mood is a little bit better, affect is normo-intense, non-labile. no SI/HI/AVH expressed. Thoughts are linear and logical, no delusions or paranoia evident. No known cognitive or memory impairment. Insight/ Judgment adequate. Diagnostics Vital Signs (24Hr): Vital Signs - 24 hr 03/12/22 20:15 03/13/22 09:43 Temperature 97.3 F 97.2 F Pulse Rate 83 86 Respiratory Rate 16 18 Blood Pressure 97/58 L 103/58 L Pulse Oximetry 99 97 Oxygen Delivery Method Room Air Room Air BMI result Body Mass Index 20.1 Labs Results: 03/09/22 20:43 03/11/22 08:48 Medications Medications Current Medications Acetaminophen (Acetaminophen 325 Mg Tablet) 650 mg PO Q6H PRN PRN Reason: Headache/Pain Mild Scale (1-3) Al Hydroxide/Mg Hydroxide (Magnesium Hydrox/Alum Hydrox 30 Ml Oral.Susp) 30 ml PO Q6H PRN PRN Reason: Heartburn/Nausea Aripiprazole (Aripiprazole 15 Mg Tablet) 15 mg PO BEDTIME [facility] Last Admin: 03/12/22 20:55 Dose: 15 mg Clonazepam (Clonazepam 0.5 Mg Tablet) 0.5 mg PO DAILY PRN PRN Reason: Anxiety Divalproex Sodium (Divalproex Sodium Er 500 Mg Tab.Er.24h) 1,000 mg PO BEDTIME [facility] Last Admin: 03/12/22 20:55 Dose: 1,000 mg Hydroxyzine HCl (Hydroxyzine Hcl 25 Mg Tablet) 25 mg PO BEDTIME PRN PRN Reason: Anxiety Hydroxyzine HCl (Hydroxyzine Hcl 25 Mg Tablet) 25 mg PO Q6H PRN PRN Reason: Anxiety Last Admin: 03/12/22 05:46 Dose: 25 mg Lamotrigine (Lamotrigine 25 Mg Tablet) 25 mg PO Q2D [facility] Last Admin: 03/13/22 09:47 Dose: 25 mg Magnesium Hydroxide (Milk Of Magnesia 30 Ml Oral.Susp) 30 ml PO DAILY PRN PRN Reason: Constipation Pharmacy Consult (Consult Rx Perform Med Rec) 1 each MISCELLANE ONCE PRN PRN Reason: Consult order Trazodone HCl (Trazodone Hcl 50 Mg Tablet) 50 mg PO BEDTIME PRN PRN Reason: Insomnia Last Admin: 03/11/22 22:53 Dose: 50 mg Trazodone HCl (Trazodone Hcl 50 Mg Tablet) 150 mg PO BEDTIME [facility] Last Admin: 03/12/22 20:55 Dose: 150 mg Allergies Allergies Allergy/AdvReac Type Severity Reaction Status Date / Time insect venom [MOSQUITO] Allergy Unknown UNKNOWN Verified 03/09/22 18:01 paliperidone [From INVEGA] Allergy Unknown DYSTONIC Verified 03/09/22 18:01 REACTION haloperidol [HALOPERIDOL] AdvReac Intermediate Dystonic Verified 03/09/22 18:01 reaction Assessment & Plan Assessment & Plan (1) Bipolar 1 disorder: Status: Acute Code(s): F31.9 - Bipolar disorder, unspecified Plan 03/11: depressive episode DC wellbutrin per pt preference. start lamictal for anti-depressant efficacy in bipolar disorder. increase VPA from 750 mg QHS to 1000 mg QHS for mood stabilization. due to VPA-lamictal interaction, will have to dose lamictal low and increase to max of 100 mg daily. lamictal 25 mg PO QOD is recommended as starting dose. 03/12: continue current mgmt. no change in Sx. 03/13: continue current mgmt. mood a little bit better. I spent ___25___ minutes with the patient and/or on the patient floor today, greater than?50% of which was spent counseling/coordinating care. Reason for contiued inpatient stay Substantial Risk for: harm to self, inability to function and rapid decompensation
[2022-03-13] MEDS: traZODone HCL 50 MG TABLET 150 MG PO (21:35)
[2022-03-13] MEDS: Divalproex Sodium ER 500 MG TAB.ER.24H 1000 MG PO (21:36)
[2022-03-13] MEDS: ARIPiprazole 15 MG TABLET PO (21:36)
[2022-03-13 21:45] VITALS: BP 98/54; PULSE 90; RESP 16; TEMP 36.6; O2SAT 97
[2022-03-14 09:33] VITALS: BP 106/55; PULSE 84; RESP 16; TEMP 36.8; O2SAT 99
--- NOTE | 2022-03-14 10:27 | P.PNPSI_ITS ---
Subjective Subjective Date of Service: 03/14/22 Reason For Visit: suicidal ideation Interim History: calm, cooperative. reports her mood is slightly better; pt still tangential but no psychosis. no SI or HI . sleeping well Medication Compliance: Yes Side effects from medications: No Attending Groups: Yes Review of Systems Acute medical concerns: No Medical Review of Systems: unchanged Review of Systems Review of Systems Constitutional : No Weight loss, No Fever, No Chills, No Fatigue, No Malaise ENT/Mouth : No sore throat, No Rhinorrhea Eyes: No Eye Pain, No Swelling, No Redness Cardiovascular : No Chest Pain, No SOB, No Dyspnea on Exertion, No Orthopnea, No Edema, No Palpitations Respiratory : No Cough, No Sputum, No Wheezing Gastrointestinal : No Nausea, No Vomiting, No Diarrhea, No Constipation, No abdominal Pain, No Hematochezia, No Melena Genitourinary : No Dysuria, No Urinary Frequency, No Hematuria, Musculoskeletal : No joint pain, No Myalgias, No Joint Swelling Skin : No Skin Lesions, No rash Neuro : No Weakness, No Numbness, No Dizziness, No Headache Psych : + Anxiety/Panic, + Depression, + SI, No HI Yes all other systems are reviewed and are negative Mental Status Exam Mental Status Exam Narrative: A&O. Pt is in casual attire, short hair, thin body habitus, not malodorous. fair eye contact, attentive. No Tics or Tremors. No abnormal involuntary movements. cooperative, engaged. spontaneous speech with regular rate and rhythm, normal amount, loudness, and prosody. No prolonged speech latency or dysarthria. Mood is a little bit better, affect is normo-intense, non-labile. no SI/HI/AVH expressed. Thoughts are linear and logical, no delusions or paranoia evident. No known cognitive or memory impairment. Insight/ Judgment adequate. Diagnostics Vital Signs (24Hr): Vital Signs - 24 hr 03/13/22 21:45 03/14/22 09:33 Temperature 98 F 98.3 F Pulse Rate 90 84 Respiratory Rate 16 16 Blood Pressure 98/54 L 106/55 L Pulse Oximetry 97 99 Oxygen Delivery Method Room Air Room Air BMI result Body Mass Index 20.1 Labs Results: 03/09/22 20:43 03/11/22 08:48 Medications Medications Current Medications Acetaminophen (Acetaminophen 325 Mg Tablet) 650 mg PO Q6H PRN PRN Reason: Headache/Pain Mild Scale (1-3) Al Hydroxide/Mg Hydroxide (Magnesium Hydrox/Alum Hydrox 30 Ml Oral.Susp) 30 ml PO Q6H PRN PRN Reason: Heartburn/Nausea Aripiprazole (Aripiprazole 15 Mg Tablet) 15 mg PO BEDTIME [facility] Last Admin: 03/13/22 21:36 Dose: 15 mg Clonazepam (Clonazepam 0.5 Mg Tablet) 0.5 mg PO DAILY PRN PRN Reason: Anxiety Divalproex Sodium (Divalproex Sodium Er 500 Mg Tab.Er.24h) 1,000 mg PO BEDTIME [facility] Last Admin: 03/13/22 21:36 Dose: 1,000 mg Hydroxyzine HCl (Hydroxyzine Hcl 25 Mg Tablet) 25 mg PO BEDTIME PRN PRN Reason: Anxiety Hydroxyzine HCl (Hydroxyzine Hcl 25 Mg Tablet) 25 mg PO Q6H PRN PRN Reason: Anxiety Last Admin: 03/12/22 05:46 Dose: 25 mg Lamotrigine (Lamotrigine 25 Mg Tablet) 25 mg PO Q2D [facility] Last Admin: 03/13/22 09:47 Dose: 25 mg Magnesium Hydroxide (Milk Of Magnesia 30 Ml Oral.Susp) 30 ml PO DAILY PRN PRN Reason: Constipation Pharmacy Consult (Consult Rx Perform Med Rec) 1 each MISCELLANE ONCE PRN PRN Reason: Consult order Trazodone HCl (Trazodone Hcl 50 Mg Tablet) 50 mg PO BEDTIME PRN PRN Reason: Insomnia Last Admin: 03/11/22 22:53 Dose: 50 mg Trazodone HCl (Trazodone Hcl 50 Mg Tablet) 150 mg PO BEDTIME [facility] Last Admin: 03/13/22 21:35 Dose: 150 mg Allergies Allergies Allergy/AdvReac Type Severity Reaction Status Date / Time insect venom [MOSQUITO] Allergy Unknown UNKNOWN Verified 03/09/22 18:01 paliperidone [From INVEGA] Allergy Unknown DYSTONIC Verified 03/09/22 18:01 REACTION haloperidol [HALOPERIDOL] AdvReac Intermediate Dystonic Verified 03/09/22 18:01 reaction Assessment & Plan Assessment & Plan (1) Bipolar 1 disorder: Status: Acute Code(s): F31.9 - Bipolar disorder, unspecified Plan 03/11: depressive episode DC wellbutrin per pt preference. start lamictal for anti-depressant efficacy in bipolar disorder. increase VPA from 750 mg QHS to 1000 mg QHS for mood stabilization. due to VPA-lamictal interaction, will have to dose lamictal low and increase to max of 100 mg daily. lamictal 25 mg PO QOD is recommended as starting dose. 03/12: continue current mgmt. no change in Sx. 03/13: continue current mgmt. mood a little bit better. 03/14/22 continue current treatment plan. I spent __15____ minutes with the patient and/or on the patient floor today, greater than?50% of which was spent counseling/coordinating care. Reason for contiued inpatient stay Substantial Risk for: inability to function and rapid decompensation
[2022-03-14 20:00] VITALS: BP 94/58; PULSE 87; RESP 16; TEMP 36.4; O2SAT 99
[2022-03-14] MEDS: Divalproex Sodium ER 500 MG TAB.ER.24H 1000 MG PO (20:39)
[2022-03-14] MEDS: ARIPiprazole 15 MG TABLET PO (20:39)
[2022-03-14] MEDS: traZODone HCL 50 MG TABLET 150 MG PO (20:39)
[2022-03-15 08:16] VITALS: BP 84/53; PULSE 91; RESP 16; TEMP 36.6; O2SAT 99
[2022-03-15] MEDS: lamoTRIgine 25 MG TABLET PO (08:20)
--- NOTE | 2022-03-15 17:49 | HO.PSYCHPN ---
Subjective Subjective Date of Service: 03/15/22 Reason For Visit: suicidal ideation Interim History: calm, cooperative. reports her mood continues to be better; less anxious; appears a little sad;no psychosis. no SI or HI . sleeping well Medication Compliance: Yes Side effects from medications: No Attending Groups: Yes Review of Systems Acute medical concerns: No Medical Review of Systems: unchanged Review of Systems Review of Systems Constitutional : No Weight loss, No Fever, No Chills, No Fatigue, No Malaise ENT/Mouth : No sore throat, No Rhinorrhea Eyes: No Eye Pain, No Swelling, No Redness Cardiovascular : No Chest Pain, No SOB, No Dyspnea on Exertion, No Orthopnea, No Edema, No Palpitations Respiratory : No Cough, No Sputum, No Wheezing Gastrointestinal : No Nausea, No Vomiting, No Diarrhea, No Constipation, No abdominal Pain, No Hematochezia, No Melena Genitourinary : No Dysuria, No Urinary Frequency, No Hematuria, Musculoskeletal : No joint pain, No Myalgias, No Joint Swelling Skin : No Skin Lesions, No rash Neuro : No Weakness, No Numbness, No Dizziness, No Headache Psych : + Anxiety/Panic, + Depression, + SI, No HI Yes all other systems are reviewed and are negative Mental Status Exam Mental Status Exam Narrative: A&O. Pt is in casual attire, short hair, thin body habitus, not malodorous. fair eye contact, attentive. No Tics or Tremors. No abnormal involuntary movements. cooperative, engaged. spontaneous speech with regular rate and rhythm, normal amount, loudness, and prosody. No prolonged speech latency or dysarthria. Mood is a little bit better, affect is normo-intense, non-labile. no SI/HI/AVH expressed. Thoughts are linear and logical, no delusions or paranoia evident. No known cognitive or memory impairment. Insight/ Judgment adequate. Diagnostics Vital Signs (24Hr): Vital Signs - 24 hr 03/14/22 20:00 03/15/22 08:16 Temperature 97.6 F 97.9 F Pulse Rate 87 91 Respiratory Rate 16 16 Blood Pressure 94/58 L 84/53 L Pulse Oximetry 99 99 Oxygen Delivery Method Room Air BMI result Body Mass Index 20.1 Labs Results: 03/09/22 20:43 03/11/22 08:48 Medications Medications Current Medications Acetaminophen (Acetaminophen 325 Mg Tablet) 650 mg PO Q6H PRN PRN Reason: Headache/Pain Mild Scale (1-3) Al Hydroxide/Mg Hydroxide (Magnesium Hydrox/Alum Hydrox 30 Ml Oral.Susp) 30 ml PO Q6H PRN PRN Reason: Heartburn/Nausea Aripiprazole (Aripiprazole 15 Mg Tablet) 15 mg PO BEDTIME [facility] Last Admin: 03/14/22 20:39 Dose: 15 mg Divalproex Sodium (Divalproex Sodium Er 500 Mg Tab.Er.24h) 1,000 mg PO BEDTIME [facility] Last Admin: 03/14/22 20:39 Dose: 1,000 mg Hydroxyzine HCl (Hydroxyzine Hcl 25 Mg Tablet) 25 mg PO BEDTIME PRN PRN Reason: Anxiety Hydroxyzine HCl (Hydroxyzine Hcl 25 Mg Tablet) 25 mg PO Q6H PRN PRN Reason: Anxiety Last Admin: 03/12/22 05:46 Dose: 25 mg Lamotrigine (Lamotrigine 25 Mg Tablet) 25 mg PO Q2D [facility] Last Admin: 03/15/22 08:20 Dose: 25 mg Magnesium Hydroxide (Milk Of Magnesia 30 Ml Oral.Susp) 30 ml PO DAILY PRN PRN Reason: Constipation Pharmacy Consult (Consult Rx Perform Med Rec) 1 each MISCELLANE ONCE PRN PRN Reason: Consult order Trazodone HCl (Trazodone Hcl 50 Mg Tablet) 50 mg PO BEDTIME PRN PRN Reason: Insomnia Last Admin: 03/11/22 22:53 Dose: 50 mg Trazodone HCl (Trazodone Hcl 50 Mg Tablet) 150 mg PO BEDTIME [facility] Last Admin: 03/14/22 20:39 Dose: 150 mg Allergies Allergies Allergy/AdvReac Type Severity Reaction Status Date / Time insect venom [MOSQUITO] Allergy Unknown UNKNOWN Verified 03/09/22 18:01 paliperidone [From INVEGA] Allergy Unknown DYSTONIC Verified 03/09/22 18:01 REACTION haloperidol [HALOPERIDOL] AdvReac Intermediate Dystonic Verified 03/09/22 18:01 reaction Assessment & Plan Assessment & Plan (1) Bipolar 1 disorder: Status: Acute Code(s): F31.9 - Bipolar disorder, unspecified Plan 03/11: depressive episode DC wellbutrin per pt preference. start lamictal for anti-depressant efficacy in bipolar disorder. increase VPA from 750 mg QHS to 1000 mg QHS for mood stabilization. due to VPA-lamictal interaction, will have to dose lamictal low and increase to max of 100 mg daily. lamictal 25 mg PO QOD is recommended as starting dose. 03/12: continue current mgmt. no change in Sx. 03/13: continue current mgmt. mood a little bit better. 03/14/22 continue current treatment plan. 03/15/22 Continue treatment plan I spent ____15__ minutes with the patient and/or on the patient floor today, greater than?50% of which was spent counseling/coordinating care. Reason for contiued inpatient stay Substantial Risk for: harm to self, inability to function and rapid decompensation
[2022-03-15 19:20] VITALS: BP 90/54; PULSE 97; RESP 16; TEMP 36.6; O2SAT 99
[2022-03-15] MEDS: ARIPiprazole 15 MG TABLET PO (20:52)
[2022-03-15] MEDS: Divalproex Sodium ER 500 MG TAB.ER.24H 1000 MG PO (20:53)
[2022-03-15] MEDS: traZODone HCL 50 MG TABLET 150 MG PO (20:53)
[2022-03-16 08:36] VITALS: BP 88/54; PULSE 72; RESP 16; TEMP 36.6; O2SAT 98
--- NOTE | 2022-03-16 15:53 | P.PNPSI_ITS ---
Subjective Subjective Date of Service: 03/16/22 Reason For Visit: suicidal ideation Interim History: maryan, cooperative, smiling, optimistic. planning for weds DC. per staff, anx/dep 07/17. meds working, appetite better. attending groups. social on eves, pacing. affect brighter. ADLs. sleeping well. Mental Status Exam Mental Status Exam Narrative: A&O. Pt is in casual attire, short hair, thin body habitus, not malodorous. fair eye contact, attentive. No Tics or Tremors. No abnormal involuntary movements. cooperative, engaged. spontaneous speech with regular rate and rhythm, normal amount, loudness, and prosody. No prolonged speech latency or dysarthria. Mood is better, affect is full-range, normo-intense, non-labile. smiling. no SI/HI/AVH expressed. Thoughts are linear and logical, no delusions or paranoia evident. No known cognitive or memory impairment. Insight/ Judgment adequate. Diagnostics Vital Signs (24Hr): Vital Signs - 24 hr 03/15/22 19:20 03/16/22 08:36 Temperature 97.9 F 97.9 F Pulse Rate 97 72 Respiratory Rate 16 16 Blood Pressure 90/54 L 88/54 L Pulse Oximetry 99 98 Oxygen Delivery Method Room Air Room Air BMI result Body Mass Index 20.1 Labs Results: 03/09/22 20:43 03/11/22 08:48 Medications Medications Current Medications Acetaminophen (Acetaminophen 325 Mg Tablet) 650 mg PO Q6H PRN PRN Reason: Headache/Pain Mild Scale (1-3) Al Hydroxide/Mg Hydroxide (Magnesium Hydrox/Alum Hydrox 30 Ml Oral.Susp) 30 ml PO Q6H PRN PRN Reason: Heartburn/Nausea Aripiprazole (Aripiprazole 15 Mg Tablet) 15 mg PO BEDTIME [facility] Last Admin: 03/15/22 20:52 Dose: 15 mg Divalproex Sodium (Divalproex Sodium Er 500 Mg Tab.Er.24h) 1,000 mg PO BEDTIME [facility] Last Admin: 03/15/22 20:53 Dose: 1,000 mg Hydroxyzine HCl (Hydroxyzine Hcl 25 Mg Tablet) 25 mg PO BEDTIME PRN PRN Reason: Anxiety Hydroxyzine HCl (Hydroxyzine Hcl 25 Mg Tablet) 25 mg PO Q6H PRN PRN Reason: Anxiety Last Admin: 03/12/22 05:46 Dose: 25 mg Lamotrigine (Lamotrigine 25 Mg Tablet) 25 mg PO Q2D [facility] Last Admin: 03/15/22 08:20 Dose: 25 mg Magnesium Hydroxide (Milk Of Magnesia 30 Ml Oral.Susp) 30 ml PO DAILY PRN PRN Reason: Constipation Pharmacy Consult (Consult Rx Perform Med Rec) 1 each MISCELLANE ONCE PRN PRN Reason: Consult order Trazodone HCl (Trazodone Hcl 50 Mg Tablet) 50 mg PO BEDTIME PRN PRN Reason: Insomnia Last Admin: 03/11/22 22:53 Dose: 50 mg Trazodone HCl (Trazodone Hcl 50 Mg Tablet) 150 mg PO BEDTIME [facility] Last Admin: 03/15/22 20:53 Dose: 150 mg Allergies Allergies Allergy/AdvReac Type Severity Reaction Status Date / Time insect venom [MOSQUITO] Allergy Unknown UNKNOWN Verified 03/09/22 18:01 paliperidone [From INVEGA] Allergy Unknown DYSTONIC Verified 03/09/22 18:01 REACTION haloperidol [HALOPERIDOL] AdvReac Intermediate Dystonic Verified 03/09/22 18:01 reaction Assessment & Plan Assessment & Plan (1) Bipolar 1 disorder: Status: Acute Code(s): F31.9 - Bipolar disorder, unspecified Plan 03/11: depressive episode DC wellbutrin per pt preference. start lamictal for anti-depressant efficacy in bipolar disorder. increase VPA from 750 mg QHS to 1000 mg QHS for mood stabilization. due to VPA-lamictal interaction, will have to dose lamictal low and increase to max of 100 mg daily. lamictal 25 mg PO QOD is recommended as starting dose. 03/12: continue current mgmt. no change in Sx. 03/13: continue current mgmt. mood a little bit better. 03/14/22 continue current treatment plan. 03/15/22 Continue treatment plan 03/16: continue current mgmt. DC weds. mood improved, affect bright and full- range. I spent ___20___ minutes with the patient and/or on the patient floor today, greater than?50% of which was spent counseling/coordinating care. Reason for contiued inpatient stay Substantial Risk for: inability to function and rapid decompensation
[2022-03-16 22:01] VITALS: BP 96/58; PULSE 87; RESP 18; TEMP 36.3; O2SAT 99
[2022-03-16] MEDS: traZODone HCL 50 MG TABLET 150 MG PO (22:05)
[2022-03-16] MEDS: ARIPiprazole 15 MG TABLET PO (22:05)
[2022-03-16] MEDS: Divalproex Sodium ER 500 MG TAB.ER.24H 1000 MG PO (22:05)
[2022-03-17] MEDS: lamoTRIgine 25 MG TABLET PO (09:20)
--- NOTE | 2022-03-17 15:47 | P.PNPSI_ITS ---
Subjective Subjective Date of Service: 03/17/22 Reason For Visit: suicidal ideation Interim History: calm, cooperative. bored. discharging tomorrow. hopelessness and dread gone completely. starting to feel creative again. no complaints or requests. per staff, better. still depressed but much better. denies SI/HI/AVH. sleeping well. med compliant. eating meals. discharge tomorrow. Mental Status Exam Mental Status Exam Narrative: A&O. Pt is in casual attire, short hair, thin body habitus, not malodorous. fair eye contact, attentive. No Tics or Tremors. No abnormal involuntary movements. cooperative, engaged. spontaneous speech with regular rate and rhythm, normal amount, loudness, and prosody. No prolonged speech latency or dysarthria. Mood is improved, affect is full-range, normo-intense, non-labile. smiling. no SI/HI/AVH expressed. Thoughts are linear and logical, no delusions or paranoia evident. No known cognitive or memory impairment. Insight/ Judgment adequate. Diagnostics Vital Signs (24Hr): Vital Signs - 24 hr 03/16/22 22:01 Temperature 97.3 F Pulse Rate 87 Respiratory Rate 18 Blood Pressure 96/58 L Pulse Oximetry 99 Oxygen Delivery Method Room Air BMI result Body Mass Index 20.1 Labs Results: 03/09/22 20:43 03/11/22 08:48 Medications Medications Current Medications Acetaminophen (Acetaminophen 325 Mg Tablet) 650 mg PO Q6H PRN PRN Reason: Headache/Pain Mild Scale (1-3) Al Hydroxide/Mg Hydroxide (Magnesium Hydrox/Alum Hydrox 30 Ml Oral.Susp) 30 ml PO Q6H PRN PRN Reason: Heartburn/Nausea Aripiprazole (Aripiprazole 15 Mg Tablet) 15 mg PO BEDTIME [facility] Last Admin: 03/16/22 22:05 Dose: 15 mg Divalproex Sodium (Divalproex Sodium Er 500 Mg Tab.Er.24h) 1,000 mg PO BEDTIME [facility] Last Admin: 03/16/22 22:05 Dose: 1,000 mg Hydroxyzine HCl (Hydroxyzine Hcl 25 Mg Tablet) 25 mg PO BEDTIME PRN PRN Reason: Anxiety Hydroxyzine HCl (Hydroxyzine Hcl 25 Mg Tablet) 25 mg PO Q6H PRN PRN Reason: Anxiety Last Admin: 03/12/22 05:46 Dose: 25 mg Lamotrigine (Lamotrigine 25 Mg Tablet) 25 mg PO Q2D [facility] Last Admin: 03/17/22 09:20 Dose: 25 mg Magnesium Hydroxide (Milk Of Magnesia 30 Ml Oral.Susp) 30 ml PO DAILY PRN PRN Reason: Constipation Pharmacy Consult (Consult Rx Perform Med Rec) 1 each MISCELLANE ONCE PRN PRN Reason: Consult order Trazodone HCl (Trazodone Hcl 50 Mg Tablet) 50 mg PO BEDTIME PRN PRN Reason: Insomnia Last Admin: 03/11/22 22:53 Dose: 50 mg Trazodone HCl (Trazodone Hcl 50 Mg Tablet) 150 mg PO BEDTIME [facility] Last Admin: 03/16/22 22:05 Dose: 150 mg Allergies Allergies Allergy/AdvReac Type Severity Reaction Status Date / Time insect venom [MOSQUITO] Allergy Unknown UNKNOWN Verified 03/09/22 18:01 paliperidone [From INVEGA] Allergy Unknown DYSTONIC Verified 03/09/22 18:01 REACTION haloperidol [HALOPERIDOL] AdvReac Intermediate Dystonic Verified 03/09/22 18:01 reaction Assessment & Plan Assessment & Plan (1) Bipolar 1 disorder: Status: Acute Code(s): F31.9 - Bipolar disorder, unspecified Plan 03/11: depressive episode DC wellbutrin per pt preference. start lamictal for anti-depressant efficacy in bipolar disorder. increase VPA from 750 mg QHS to 1000 mg QHS for mood stabilization. due to VPA-lamictal interaction, will have to dose lamictal low and increase to max of 100 mg daily. lamictal 25 mg PO QOD is recommended as starting dose. 03/12: continue current mgmt. no change in Sx. 03/13: continue current mgmt. mood a little bit better. 03/14/22 continue current treatment plan. 03/15/22 Continue treatment plan 03/16: continue current mgmt. DC weds. mood improved, affect bright and full- range. 03/17: check labs this evening prior to HS depakote. discharge tomorrow. stable, otherwise continue current mgmt. I spent __25____ minutes with the patient and/or on the patient floor today, greater than?50% of which was spent counseling/coordinating care. Reason for contiued inpatient stay Substantial Risk for: stable for discharge
[2022-03-17 19:31] LABS: MANUAL DIFF FLAG NO
[2022-03-17 19:33] LABS: Basophils Percent Auto 0.4 % (0-2); Eosinophils Percent Auto 0.6 % (0-4); Hematocrit 38.7 % (37.0-47.0); Hemoglobin 12.9 g/dl (12.0-16.0); Imm Gran Abs Auto 0.02 X10*3/uL (0.00-0.03); Imm Gran Pct Auto 0.3 % (0.0-0.4); Lymphocytes Absolute Auto 2.9 X10*3/uL (1.2-4.9); Lymphocytes Percent Auto 40.4 % (20-40); Mean Corpuscular HGB Conc 33.3 g/dl (31.0-35.0); Mean Corpuscular Hemoglobin 30.3 pg (27.0-33.0); Mean Corpuscular Volume 90.8 fL (80.0-98.0); Mean Platelet Volume 9.2 fL (9.4-12.3); Monocytes Absolute Auto 0.3 X10*3/uL (0.1-1.2); Monocytes Percent Auto 4.7 % (2-11); Neutrophils Absolute Auto 3.9 x10*3/uL (2.0-8.3); Neutrophils Percent Auto 53.6 % (45-73); Platelet Count 214 X10*3/uL (160-400); Red Blood Count 4.26 X10*6/uL (4.20-5.50); Red Cell Distribution Width 11.8 % (11.0-16.0); White Blood Count 7.2 X10*3/uL (4.8-10.8)
[2022-03-17 19:53] LABS: Alanine Aminotransferase < 6 U/L (0-31); Alkaline Phosphatase 54 U/L (39-117); Anion Gap 10 (12-20); Aspartate Amino Transferase 13 U/L (5-31); Bilirubin Direct < 0.2 mg/dL (0.0-0.5); Bilirubin Total < 0.2 mg/dL (0.0-1.0); Blood Urea Nitrogen 12 mg/dL (9-16); Calcium 9.5 mg/dL (8.4-10.2); Carbon Dioxide 31 mmol/L (22-29); Chloride 101 mmol/L (96-108); Creatinine Clr Calc Pharmacy 106.7; Estimated Glomerular Filt Rate > 60; Glucose Random 73 mg/dL (60-115); Potassium 4.4 mmol/L (3.3-5.1); Sodium 138 mmol/L (135-145); Total Protein 6.7 g/dL (6.5-8.0)
[2022-03-17 20:28] LABS: Valproate 61.1 mcg/mL (50.0-100.0)
[2022-03-17 20:57] VITALS: BP 98/53; PULSE 83; TEMP 36.3; O2SAT 100
[2022-03-17] MEDS: Divalproex Sodium ER 500 MG TAB.ER.24H 1000 MG PO (21:06)
[2022-03-17] MEDS: traZODone HCL 50 MG TABLET 150 MG PO (21:06)
[2022-03-17] MEDS: ARIPiprazole 15 MG TABLET PO (21:06)
[2022-03-18 08:41] VITALS: BP 90/54; PULSE 77; RESP 16; TEMP 36.6; O2SAT 100
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
== END 2022-03-18 10:49 | disposition home or self-care (01) | DRG 753 ==
LOC: HO.ED 03-10 13:00 → HO.PADLT16 03-10 17:23
PROVIDERS: Physician Assistant; Psychiatry & Neurology Psychiatry; Admitting Provider Psychiatry & Neurology Psychiatry; Emergency Provider Internal Medicine; Visit Provider Psychiatry & Neurology Psychiatry
DX: F31.9 Bipolar disorder, unspecified (principal); R45.851 Suicidal ideations; F43.10 Post-traumatic stress disorder, unspecified; Z20.822 Contact with and (suspected) exposure to COVID-19; Z87.891 Personal history of nicotine dependence; Z88.8 Allergy status to other drugs, medicaments and biological substances; Z79.899 Other long term (current) drug therapy
CPT/HCPCS: 36415; 80048; 80053; 80061; 80076; 80164; 80307; 82077; 83735; 85025; 87635; 99284

== ENCOUNTER 2022-06-24 14:47 | Emergency (ER) | payer MEDICAID, SELFPAY ==
[2022-06-24 15:55] VITALS: BP 122/63; PULSE 82; RESP 18; TEMP 36.6; O2SAT 99; BMI 22.7
--- NOTE | 2022-06-24 15:55 | ED_ITS ---
HPI - General Adult General Chief complaint: Wound/Laceration <Antonietta Houser CNP - Last Filed: 06/24/22 16:01> Stated complaint: boil l foot <Antonietta Houser CNP - Last Filed: 06/24/22 16:01> Time Seen by Provider: 06/24/22 18:55 <Antonietta Houser CNP - Last Filed: 06/24/22 16:01> Source: patient <Nasreen Combs MD - Last Filed: 06/24/22 19:55> Mode of arrival: ambulatory <Nasreen Combs MD - Last Filed: 06/24/22 19:55> Limitations: no limitations <Nasreen Combs MD - Last Filed: 06/24/22 19:55> History of Present Illness HPI narrative: 22-year-old female came in for evaluation of lump at the left heel of the left foot. Patient was seen at an urgent care 2 weeks ago for pain and her left foot was diagnosed with plantar fasciitis, patient declined any trauma, no puncture injury to the left foot now the she has a very painful lump at the heel of the left foot. <Nasreen Combs MD - Last Filed: 06/24/22 19:55> Related Data Home medications: Home Medications Medication Instructions Recorded Confirmed hydroxyzine HCl 25 mg tablet 1 tab PO BEDTIME PRN Anxiety 12/24/21 03/09/22 clonazepam 0.5 mg tablet 1 tab PO DAILY PRN Anxiety 01/06/22 03/09/22 Previous Rx's Medication Instructions Recorded aripiprazole 15 mg tablet 15 mg PO BEDTIME #30 tabs 12/26/21 divalproex 500 mg tablet,extended 1,000 mg PO BEDTIME 30 days #60 03/17/22 release 24 hr tabs trazodone 50 mg tablet 150 mg PO BEDTIME 30 days #90 tabs 03/17/22 lamotrigine 25 mg tablet 25 mg PO DAILY mood 30 days #30 03/24/22 tabs lamotrigine 25 mg tablet (Lamictal) 25 mg PO Q OTHER DAY mood 14 days 03/24/22 #7 tabs <Antonietta Houser CNP - Last Filed: 06/24/22 16:01> Allergies/adverse reactions: Allergies Allergy/AdvReac Type Severity Reaction Status Date / Time insect venom [MOSQUITO] Allergy Unknown UNKNOWN Verified 03/09/22 18:01 paliperidone [From INVEGA] Allergy Unknown DYSTONIC Verified 03/09/22 18:01 REACTION haloperidol [HALOPERIDOL] AdvReac Intermediate Dystonic Verified 03/09/22 18:01 reaction <Antonietta Houser CNP - Last Filed: 06/24/22 16:01> Review of Systems Review of Systems: All other systems are reviewed and are negative Constitutional: Reports as per HPI and Reports no additional constitutional complaints Eyes: Reports as per HPI and Reports no additional eye complaints Reports system reviewed and no additional complaints, except as documented Cardiovascular: Reports as per HPI and Reports no additional cardiovascular complaints Respiratory: Reports as per HPI and Reports no additional respiratory complaints Gastrointestinal: Reports as per HPI and Reports no additional gastrointestinal complaints Genitourinary: Reports no additional female genitourinary complaints Musculoskeletal: Reports no additional musculoskeletal complaints Skin/Breast: Reports system reviewed and no additional complaints, except as docu Psychiatric: Reports no additional psychiatric complaints Endocrine: Reports no additional endocrine complaints Hematologic/Lymphatic: Reports no additional hematologic/lymphatic complaints Allergic/Immunologic: Reports no additional allergic/immunologic complaints Reports system reviewed and no additional complaints, except as documented and Reports Abnormal speech present <Nasreen Combs MD - Last Filed: 06/24/22 19:55> [facility] Past Medical History Medical History: Medical History Anxiety Bipolar 1 disorder Bipolar disorder Depression <Antonietta Houser CNP - Last Filed: 06/24/22 16:01> Social History Social History: Social History Household Members: Family Household Members Other:: Mom, two little brothers and a little sister. Housing: Apartment Do you presently have visiting nurse or other home services: No Alcohol intake: never Patient Tobacco Use Status: Former Tobacco user Quit Date: 02/11/2021 Tobacco use type: Cigarette Cigarettes Per Day: 5 Years Smoked: 2 years e-Cigarette/Vaping Use: Currently Using Second Hand Smoke Exposure: Yes Substance Use Type: Marijuana Advance Directives: No Advance Directives Information Provided: No service: No Sexual orientation: Don't Know <Antonietta Houser CNP - Last Filed: 06/24/22 16:01> Physical Exam ED Vital Signs: Vital Signs - 24 hr 06/24/22 15:55 Temperature 98 F Pulse Rate 82 Respiratory Rate 18 Blood Pressure 122/63 Pulse Oximetry 99 Oxygen Delivery Method Room Air BMI result Body Mass Index 22.7 <Antonietta Houser CNP - Last Filed: 06/24/22 16:01> Vital Signs - 24 hr 06/24/22 15:55 Temperature 98 F Pulse Rate 82 Respiratory Rate 18 Blood Pressure 122/63 Pulse Oximetry 99 Oxygen Delivery Method Room Air BMI result Body Mass Index 22.7 Vital signs have been reviewed as appeared to be correct. Blood pressure normal. Heart rate normal. Respiration rate normal. Temperature normal. Oxygen saturation normal. <Nasreen Combs MD - Last Filed: 06/24/22 19:55> Appearance: Alert. Oriented X3. No acute distress. Head: Normal external exam. Normocephalic. Atraumatic. No Rios signs noted. No raccoon eyes noted Eyes: PERRLA. EOMI. Conjunctiva and sclera normal. Eyelids normal. ENT: TM's Normal. Pharynx normal. Uvula midline. Moist mucous membranes. No trismus noted. No drooling noted. No muffled voice noted. Neck: Normal inspection. Neck supple. FROM. No adenopathy. Thyroid Normal. No meningeal signs. No neck mass noted. CVS: Normal heart rate and rhythm. Heart sound normal. No murmurs noted. Pulses normal throughout. Respiratory: No respiratory distress. Painless inspiration. Breath sounds normal. No wheezes/rales/rhonchi noted. Chest nontender. No accessory muscle usage noted or decreased air movement noted. Abdomen: Soft and nontender. Bowel sounds normal in all 4 quadrants. No distention noted. No organomegaly noted. No visible injury noted. Back: No CVA tenderness. Full range of motion noted. Skin: Skin warm and dry. Normal skin color. Normal skin turgor. No rashes/lesions/lacerations noted. Extremities: Left foot exam: 2 x 2 cm area of fluctuation at the heel of the left foot, no palpable foreign body, neurovascularly intact. Neuro: Oriented X 3. Cranial nerve exam: II-XII are grossly intact No motor deficit. No sensory deficit. Reflexes normal. <Nasreen Combs MD - Last Filed: 06/24/22 19:55> Course Course Course Narrative: This is an RME: Additional HPI, ROS, PE not included below will be deferred to primary provider. Patient is a 22 year old female who presents to the ED for evaluation of a painful lump to the left heel. Reports onset was yesterday. Pain is severe when weight-bearing/walking. Denies fevers, chills, additional skin lesions, history of abscesses, or MRSA. She states that 2 weeks ago went to urgent care as she was experiencing left foot pain, was advised was plantar fasciitis, at that time did not have any skin abnormality. She is currently staying in a respite home, the nursing staff there advised her to come to the ER. PE: Left heel abscess, central fluctuance, surrounding erythema. Plan: placed back in waiting room pending bed availability, will require incision and drainage. <Antonietta Houser CNP - Last Filed: 06/24/22 16:01> Reevaluation(s) Reevaluation #1: Assessment and plan: Left heel abscess. Planus I&D. <Nasreen Combs MD - Last Filed: 06/24/22 19:55> Time: 19:52 <Nasreen Combs MD - Last Filed: 06/24/22 19:55> Procedures Abscess I/D Site: foot (Heel) <Nasreen Combs MD - Last Filed: 06/24/22 19:55> Side (if applicable): left <Nasreen Combs MD - Last Filed: 06/24/22 19:55> Local Anesthetic: lidocaine 1% <Nasreen Combs MD - Last Filed: 06/24/22 19:55> Amount of anesthesia used (mL): 3 <Nasreen Combs MD - Last Filed: 06/24/22 19:55> Amount of fluid expressed (mL): 3 <Nasreen Combs MD - Last Filed: 06/24/22 19:55> Sent for culture/gram staining?: No <Nasreen Combs MD - Last Filed: 06/24/22 19:55> Irrigation: No <Nasreen Combs MD - Last Filed: 06/24/22 19:55> Packing used?: none <Nasreen Combs MD - Last Filed: 06/24/22 19:55> Medical Decision Making Differential Diagnosis Differential Diagnoses: The differential diagnosis associated with the presentation includes (Plantar fasciitis, abscess, deep soft tissue infection.) <Nasreen Combs MD - Last Filed: 06/24/22 19:55> Discharge Plan Discharge Clinical Impression: Abscess of heel, left <Antonietta Houser CNP - Last Filed: 06/24/22 16:01> Patient Disposition: Home, Self-Care <Antonietta Housre CNP - Last Filed: 06/24/22 16:01> Instructions: Abscess Incision and Drainage (DC), Abscess (ED) <Antonietta Houser CNP - Last Filed: 06/24/22 16:01> Prescriptions: No Action hydroxyzine HCl 25 mg tablet 1 tab PO BEDTIME PRN (Reason: Anxiety) aripiprazole 15 mg tablet 15 mg PO BEDTIME Qty: 30 0RF clonazepam 0.5 mg tablet 1 tab PO DAILY PRN (Reason: Anxiety) trazodone 50 mg Tablet 150 mg PO BEDTIME 30 Days Qty: 90 0RF divalproex 500 mg Tablet Extended Release 24 Hr 1,000 mg PO BEDTIME 30 Days Qty: 60 0RF lamotrigine [Lamictal] 25 mg tablet 25 mg PO Q OTHER DAY 14 Days Qty: 7 0RF lamotrigine 25 mg tablet 25 mg PO DAILY 30 Days Qty: 30 0RF Rx Instructions: take once you have finished the script for lamotrigine 25 mg every other day (2 weeks) <Antonietta Houser CNP - Last Filed: 06/24/22 16:01> Referrals: [facility] [Primary Care Provider] - <Antonietta Houser CNP - Last Filed: 06/24/22 16:01>
== END 2022-06-24 20:03 | disposition home or self-care (01) ==
PROVIDERS: Emergency Provider Emergency Medicine
DX: L02.612 Cutaneous abscess of left foot (principal); F12.90 Cannabis use, unspecified, uncomplicated; Z87.891 Personal history of nicotine dependence
CPT/HCPCS: 10060; 99282; 99284

== ENCOUNTER 2022-08-11 13:45 | Outpatient (RCR) | payer OTHER, SELFPAY ==
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
--- NOTE | 2022-08-10 13:58 | PC.ADMIT ---
Patient is a 22 year old single female who was referred to [facility] by [facility] where she resides in a [facility] bed. Per Integrative Assessment patient is having ongoing issues with depression and anxiety. She has a history of inpatient level of cares and a history of suicide attempts. Most recent hospitalization was at [facility]. Patient presented with depressed mood and anxious affect. Speech is pressured. Stated she has been feeling more stress and is slipping back into depression. Reports passive SI stating, I can't take this pain anymore . Denied plan or intent to kill herself. Medications reconciled with patient and medication list brought in by patient from [facility] in addition to speaking with Josee MERCHANT at [facility]. Patient reports taking medications as prescribed. Denied using any substances at present.
[2022-08-10 14:02] VITALS: BP 90/60; PULSE 80; TEMP 37.4; BMI 24.3
--- NOTE | 2022-08-11 10:55 | HO.PHP ---
i called and left a message with the clients [facility] telephonic nurse case manager Nils Gee. I requested a call back to discuss the client's care.
--- NOTE | 2022-08-11 15:48 | HO.PHP ---
The client was observed yelling loudly and crying in the hallway during lunch. When questioned she replied that she is upset because she didn't get a lunch.She had difficulty regulating and threw her apple juice on the flood. She eventually agreed to talk with me in my office. After speaking for a few minutes she was able to calm down . She continues to be hyperverbal and shared about her family and her girlfriend at [facility]. Eventually she did acknowledge that she turned her lunch sheet in too late and did eat what was available. She states that she isn't sure these groups are working for her and that she would rather go to the other program that she was referred to.
--- NOTE | 2022-08-12 15:43 | HO.PHP ---
I spoke with Radu a staff at [facility] We discussed Elba needs and her difficulty managing the PHP groups. Radu states that Lauren has been referred to the [facility] house and they are waiting for the acceptance reply. She is going to talk with [facility] watch caser today and will inform him of the situation and she will give him my number to call me.
--- NOTE | 2022-08-13 10:09 | HO.PHP ---
I called the clients telehealth case manager Marcus Gee and informed him of the clients discharge and requested a call back.
== END 2022-08-11 23:59 | disposition home or self-care (01) ==
LOC: HO.PHPA 13:45
PROVIDERS: Visit Provider Psychiatry & Neurology Psychiatry
DX: F31.81 Bipolar II disorder (principal); F43.10 Post-traumatic stress disorder, unspecified
CPT/HCPCS: 90791; 90853

== ENCOUNTER 2022-10-12 23:28 | Emergency (ER) | payer OTHER, MEDICAID, SELFPAY ==
[2022-10-12 23:31] VITALS: BP 109/56; PULSE 89; RESP 17; TEMP 36.9; O2SAT 98; BMI 24.9
[2022-10-13 00:19] LABS: COVID-19 Test Negative (Negative); IDNOW Serial# 08D9AD1C
--- NOTE | 2022-10-13 00:40 | ED_ITS ---
HPI - Psych General Chief Complaint: Psychiatric Symptoms Stated Complaint: Crisis Time Seen by Provider: 10/12/22 23:43 Source: patient Mode of arrival: ambulatory Limitations: no limitations History of Present Illness HPI Narrative: 22 yold female presents to the For aggressive behavior after drinking alcohol. patient was in [facility]. patient states no physical complaints. [facility] wants patient to be seen by Care team. Patient denies any suicidal or homicidal ideation. Related Data Home Medications Medication Instructions Recorded Confirmed clonidine HCl 0.1 mg tablet 0.1 mg PO Q6H PRN panic attack 08/10/22 10/12/22 divalproex 500 mg tablet,extended 1,500 mg PO BEDTIME 08/10/22 10/12/22 release 24 hr lamotrigine 100 mg tablet 100 mg PO QAM 08/10/22 10/12/22 lorazepam 1 mg tablet 1 mg PO BID PRN Anxiety 08/10/22 10/12/22 mirtazapine 15 mg tablet 15 mg PO BEDTIME 08/10/22 10/12/22 perphenazine 2 mg tablet 2 mg PO BID 08/10/22 10/12/22 perphenazine 4 mg tablet 6 mg PO BID PRN Agitation 08/10/22 10/12/22 trazodone 50 mg tablet 50 mg PO BEDTIME 08/10/22 10/12/22 Allergies Allergy/AdvReac Type Severity Reaction Status Date / Time insect venom [MOSQUITO] Allergy Unknown UNKNOWN Verified 03/09/22 18:01 paliperidone [From INVEGA] Allergy Unknown DYSTONIC Verified 03/09/22 18:01 REACTION haloperidol [HALOPERIDOL] AdvReac Intermediate Dystonic Verified 03/09/22 18:01 reaction Review of Systems Review of Systems: agression Yes all other systems are reviewed and are negative [facility] Past Medical History Medical History Anxiety Bipolar 1 disorder Bipolar disorder Depression Social History Social History Household Members: Other Household Members Other:: Resides at [facility] currently Housing: Apartment Do you presently have visiting nurse or other home services: No Alcohol intake: never Patient Tobacco Use Status: Current everyday Tobacco user Tobacco use type: Cigarette Cigarettes Per Day: 1 Years Smoked: 2 years e-Cigarette/Vaping Use: Currently Using Second Hand Smoke Exposure: Yes Substance Use Type: Marijuana Advance Directives: No Advance Directives Information Provided: Yes service: No Sexual orientation: Don't Know Physical Exam Vital Signs: Vital Signs: Last Vital Signs Temp 98.4 F 10/12/22 23:31 Pulse 89 10/12/22 23:31 Resp 17 10/12/22 23:31 BP 109/56 L 10/12/22 23:31 Pulse Ox 98 10/12/22 23:31 O2 Del Method Room Air 10/12/22 23:31 BMI result Body Mass Index 24.9 Const: General: cooperative, healthy appearing, comfortable, no acute distress, well developed, alert, awake and Physically active Orientation/consciousness: oriented to person, oriented to place, oriented to time and patient oriented x3 HEENT: Head: Yes normal to inspection, Yes No palpable skull fracture present, Yes normocephalic, Yes atraumatic and No abrasion Eyes: General: appearance normal, both eyes and all related structures Neck: Neck: Yes normal visual inspection, Yes full ROM, Yes no lymphadenopathy, Yes no meningeal signs, Yes trachea midline, Yes supple, No anterior neck swelling and No tender Chest: Chest palpation & inspection: normal inspection of the chest and normal palpation of entire chest wall Resp: Effort & Inspection: normal respiratory effort and able to speak in complete sentences Auscultation: clear to auscultation bilaterally Cardio: Jugular venous distension: no JVD Heart sounds: S1 normal heart sound present and S2 normal heart sound present GI: Inspection: Yes normal to inspection and No abdominal wall ecchymosis Palpation (GI): Soft to palpation, not firm, nontender, no guarding and not rigid : General: No CVA tenderness and Yes no CVA tenderness Back/Spine/Pelvis: Back: no CVA tenderness, No CVA tenderness and No back tenderness Skin: General skin exam: no rashes or lesions noted and elasticity normal Neuro: General: oriented to person, oriented to place, oriented to time, patient oriented x3, gait normal, tone normal, moves all extremities, Normal light touch and pain sensation, no meningeal signs, no focal motor deficits, CN's II-XI intact bilaterally and normal sensation to monofilament Extrem: General: Yes normal to inspection and Yes full ROM Psych: Appearance: grossly normal, well kempt and not disheveled Course Course Course Narrative: Labs care team consult placed Reevaluation(s) Reevaluation #1: per RN no acute events overnight. VS stable, labs were not drawn will re attempt this AM. still pending CARE team input. has been calm and cooperative. Medical Decision Making Medical Decision Making [facility] Narrative: [age] female presents to ED for aggression current from [facility]. Labs care team consult pending. Lab Data Labs: Lab Results 10/12/22 Range/Units 23:55 COVID-19 (SIENNA) Negative (Negative) COVID-19 Clin Com See Note Discharge Plan Discharge Clinical Impression: Depression Patient Disposition: Still a Patient Prescriptions: No Action clonidine HCl 0.1 mg tablet 0.1 mg PO Q6H PRN (Reason: panic attack) perphenazine 2 mg tablet 2 mg PO BID divalproex 500 mg tablet extended release 24 hr 1,500 mg PO BEDTIME perphenazine 4 mg tablet 6 mg PO BID PRN (Reason: Agitation) mirtazapine 15 mg tablet 15 mg PO BEDTIME lorazepam 1 mg Tablet 1 mg PO BID PRN (Reason: Anxiety) lamotrigine 100 mg tablet 100 mg PO QAM trazodone 50 mg Tablet 50 mg PO BEDTIME Interventions: [place]-Suicide Risk Severity Scale Last Done: 10/13/22 04:41
--- NOTE | 2022-10-13 05:54 | PC.NURSE ---
Patient at the time of arrival under ETOH influence, unable to provide urine sample and patient requested to have blood drawn in the morning, provider made aware/okayed, slept through the night, med rec completed/pending provider's approval, patient was presented to us via ambulance from [facility], behavior non concerning, VSS, will continue to monitor.
--- NOTE | 2022-10-13 10:00 | MHC.CARE ---
Call from Brittany Crowder from [facility]. Patient has been experiencing mood lability, todd, lack of behavioral control with aggression, intermittent medication compliance. Patient is not able to return to that facility, coordinate with [facility] regarding placement.
[2022-10-13 12:27] LABS: MANUAL DIFF FLAG NO
[2022-10-13 12:30] LABS: Basophils Percent Auto 0.6 % (0-2); Eosinophils Absolute Auto 0.1 X10*3/uL (0.0-0.4); Eosinophils Percent Auto 1.1 % (0-4); Hematocrit 42.3 % (37.0-47.0); Hemoglobin 14.3 g/dl (12.0-16.0); Imm Gran Abs Auto 0.01 X10*3/uL (0.00-0.03); Imm Gran Pct Auto 0.2 % (0.0-0.4); Lymphocytes Absolute Auto 3.4 X10*3/uL (1.2-4.9); Lymphocytes Percent Auto 53.5 % (20-40); Mean Corpuscular HGB Conc 33.8 g/dl (31.0-35.0); Mean Corpuscular Volume 91.6 fL (80.0-98.0); Mean Platelet Volume 9.2 fL (9.4-12.3); Monocytes Absolute Auto 0.5 X10*3/uL (0.1-1.2); Monocytes Percent Auto 7.6 % (2-11); Neutrophils Absolute Auto 2.3 x10*3/uL (2.0-8.3); Platelet Count 234 X10*3/uL (160-400); Red Blood Count 4.62 X10*6/uL (4.20-5.50); Red Cell Distribution Width 11.7 % (11.0-16.0); White Blood Count 6.3 X10*3/uL (4.8-10.8)
[2022-10-13 12:32] LABS: UPreg QC Valid YES; Urine Pregnancy NEGATIVE (NEGATIVE)
[2022-10-13 12:39] LABS: Amphetamine Screen Urine Not Detected (Not Detect); Barbiturates, Urine Not Detected (Not Detect); Benzodiazepines Screen Urine Not Detected (Not Detect); Cannabinoid Screen Urine POSITIVE (Not Detect); Cocaine Screen Urine Not Detected (Not Detect); Fentanyl, urine POSITIVE (Not Detect); Opiate Screen Urine Not Detected (Not Detect); Phencyclidine Screen Urine Not Detected (Not Detect)
[2022-10-13 12:44] LABS: Valproate 62.5 mcg/mL (50.0-100.0)
[2022-10-13 12:47] LABS: Alanine Aminotransferase 21 U/L (0-31); Albumin Level 4.1 g/dL (3.5-5.0); Alkaline Phosphatase 49 U/L (39-117); Anion Gap 10 (12-20); Aspartate Amino Transferase 31 U/L (5-31); Bilirubin Total 0.7 mg/dL (0.0-1.0); Blood Urea Nitrogen 8 mg/dL (9-16); Calcium 9.3 mg/dL (8.4-10.2); Carbon Dioxide 25 mmol/L (22-29); Chloride 107 mmol/L (96-108); Creatinine Clr Calc Pharmacy 127.1; Estimated Glomerular Filt Rate > 60; Ethanol < 10 mg/dL; Glucose Random 84 mg/dL (60-115); Sodium 138 mmol/L (135-145)
[2022-10-13 12:58] LABS: Appearance Urine Clear; Color Urine Yellow; Glucose Urine UA Negative (Negative); Leukocyte Esterase Urine Trace (Negative); Nitrite Urine Negative (Negative); PH 6.5 (5.0-9.0); UMIC TRIGGER UA YES; Urine Blood Negative (Negative); Urine Ketones 15 mg/dL (Negative); Urine Protein Trace mg/dL (Neg-Trace)
[2022-10-13 13:02] LABS: Bacteria Urine None Seen (None Seen); Hyaline Casts Urine 0-2 /LPF (0-2); RBC Urine 0-2 /HPF (0-2); WBC Urine 0-5 /HPF (0-5)
[2022-10-13 13:35] VITALS: BP 95/48; PULSE 75; TEMP 36.2; O2SAT 97
== END 2022-10-13 15:59 | disposition home or self-care (01) ==
PROVIDERS: Emergency Provider Emergency Medicine Emergency Medical Services
DX: F32.A Depression, unspecified (principal); Z20.822 Contact with and (suspected) exposure to COVID-19; F43.12 Post-traumatic stress disorder, chronic; F17.210 Nicotine dependence, cigarettes, uncomplicated; Z79.899 Other long term (current) drug therapy
CPT/HCPCS: 36415; 80053; 80164; 80307; 81001; 81025; 85025; 87635; 99284; S9485

== ENCOUNTER 2022-10-24 21:30 | Inpatient (IN) | payer OTHER, MEDICAID, SELFPAY ==
--- NOTE | ~2022-10-24 | XR_ITS ---
EXAMINATION: XR ANKLE, RIGHT CLINICAL INFORMATION: Pain, injury, fall. COMPARISON: 09/07/2007 TECHNIQUE: AP, lateral, and mortise views of the right ankle. FINDINGS: Diffuse nonspecific soft tissue thickening. No acute fractures or subluxation. No unexpected radiopaque foreign bodies. XR/XR ankle RT min 3V IMPRESSION: 1. Nonspecific soft tissue thickening. 2. No acute fractures or subluxation.
[2022-10-24 21:32] VITALS: BP 103/62; PULSE 66; RESP 18; TEMP 36.5; O2SAT 98; BMI 22.6
--- NOTE | 2022-10-24 21:55 | ED.GENADULT ---
HPI - General Adult General Chief complaint: Psychiatric Symptoms Stated complaint: crisis Time Seen by Provider: 10/24/22 21:55 Source: patient Mode of arrival: ambulatory Limitations: no limitations History of Present Illness HPI narrative: Patient is a 22 year old assigned female at with a history of depression, bipolar disorder, and PTSD presenting to the emergency department today with right ankle pain after a trip and fall out of a bar, and feeling more depressed. Patient states that her right ankle has been bothering her since she tripped out of a bar earlier and her medications are being adjusted causing her to be more depressed but also more manic. Patient denies any SI, HI, dizziness, lightheadedness, abdominal pain, nausea, vomiting, fever, chills, blurry vision, double vision, loss of vision, chest pain, difficulty breathing, shortness of breath, back pain, night sweats, pain with urination, increased urinary frequency, increased urinary urgency, blood in her urine or stool, syncope or a near syncopal episode, bowel incontinence, bladder incontinence, bowel retention, bladder retention, or any other complaints at this time. Severity: mild Relieving factors: none Exacerbating factors: none Associated symptoms: denies other symptoms Treatments prior to arrival: none Related Data Home Medications Medication Instructions Recorded Confirmed clonidine HCl 0.1 mg tablet 0.1 mg PO Q6H PRN panic attack 08/10/22 10/24/22 mirtazapine 15 mg tablet 15 mg PO BEDTIME 08/10/22 10/24/22 lamotrigine 100 mg tablet 100 mg PO DAILY 10/24/22 10/24/22 trazodone 100 mg tablet 100 mg PO BEDTIME 10/24/22 10/24/22 Allergies Allergy/AdvReac Type Severity Reaction Status Date / Time insect venom [MOSQUITO] Allergy Unknown UNKNOWN Verified 03/09/22 18:01 paliperidone [From INVEGA] Allergy Unknown DYSTONIC Verified 03/09/22 18:01 REACTION haloperidol [HALOPERIDOL] AdvReac Intermediate Dystonic Verified 03/09/22 18:01 reaction Review of Systems Constitutional: Constitutional: Reports no additional constitutional complaints, Denies chills, Denies fever(s) and Denies night sweats Eyes: Eyes: Reports no additional eye complaints, Denies blurry vision, Denies change in vision, Denies diplopia, Denies eye discharge, Denies loss of vision and Denies eye pain ENT: Denies dizziness Cardiovascular: Cardiovascular: Reports no additional cardiovascular complaints, Denies chest pain, Denies lightheadedness, Denies Loss of Consciousness and Denies dyspnea Respiratory: Respiratory: Reports no additional respiratory complaints and Denies dyspnea Gastrointestinal: Gastrointestinal: Reports no additional gastrointestinal complaints, Denies abdominal pain, Denies melena, Denies hematochezia, Denies change in bowel habits and Denies change in stool character Genitourinary: Genitourinary: Denies hematuria, Denies urinary frequency, Denies dysuria, Denies urinary incontinence, Denies urinary hesitancy and Denies urinary urgency Musculoskeletal: Musculoskeletal: Reports no additional musculoskeletal complaints, Denies numbness and Denies tingling Comments: right ankle pain Neurologic: Denies dizziness, Denies loss of vision, Denies numbness and Denies tingling Psychiatric: Psychiatric: Reports no additional psychiatric complaints, Reports depression, Denies homicidal ideation and Denies suicidal ideation Endocrine: Endocrine: Reports no additional endocrine complaints Hematologic/Lymphatic: Hematologic/Lymphatic: Reports no additional hematologic/lymphatic complaints Allergic/Immunologic: Allergic/Immunologic: Reports no additional allergic/immunologic complaints [facility] Past Medical History Attestation statement: The following information was validated with the patient. Source: old records reviewed and nursing notes reviewed Medical History Anxiety Bipolar 1 disorder Bipolar disorder Depression Social History Social History Household Members: Other Household Members Other:: Resides at [facility] currently Housing: Apartment Do you presently have visiting nurse or other home services: No Alcohol intake: never Patient Tobacco Use Status: Current everyday Tobacco user Tobacco use type: Cigarette Cigarettes Per Day: 1 Years Smoked: 2 years e-Cigarette/Vaping Use: Currently Using Second Hand Smoke Exposure: Yes Substance Use Type: Marijuana Advance Directives: No Advance Directives Information Provided: No service: No Sexual orientation: Don't Know Physical Exam ED Vital Signs: Vital Signs - 24 hr 10/24/22 21:32 10/25/22 06:33 Temperature 97.7 F 97.7 F Pulse Rate 66 60 Respiratory Rate 18 15 Blood Pressure 103/62 97/53 L Pulse Oximetry 98 99 Oxygen Delivery Method Room Air Room Air BMI result Body Mass Index 22.6 Const General: cooperative, no acute distress, alert and awake Nutritional Appearance: well nourished Orientation/consciousness: patient oriented x3 Limitations: no limitations HENMT Head: Yes normal to inspection and Yes atraumatic Ears: hearing grossly normal bilaterally and external ears normal General nose exam: Normal external nose present, no nasal discharge noted and no epistaxis Face and sinus: Yes normal facial exam, No abrasion and No laceration Mouth: Normal oral and palatal mucosa present, no drooling and no muffled voice Eyes General: appearance normal, both eyes and all related structures Periorbital: periorbital findings normal Eyelids: Yes eyelids normal Conjunctivae: conjunctivae normal Pupils: Equal, round and reactive pupils present EOM: EOMs intact bilaterally Neck Neck: Yes normal visual inspection, Yes full ROM and Yes no lymphadenopathy Chest Chest palpation & inspection: normal inspection of the chest Resp Effort & Inspection: normal respiratory effort and able to speak in complete sentences GI Inspection: Yes normal to inspection Neuro General: patient oriented x3 and moves all extremities Cranial nerves: Yes Equal, round and reactive pupils present Cognition (Neuro): normal cognition Motor exam (neuro): 5/5 motor strength present throughout Sensory Exam: Normal double simultaneous stimulation for sensation Coordination: [id number] test normal Extrem General: Yes normal to inspection, Yes full ROM and Yes capillary refill normal Psych Appearance: grossly normal Mental Status: mental status grossly normal Affect: normal affect Attitude: cooperative Thought process: Normal thought process present Thought content: Normal thought content present Insight: Good insight present (Psych) Course Reevaluation(s) Reevaluation #1: Continue physician observation, no acute events overnight. Time: 10:13 Medications Administered Generic Name Dose Route Start Last Admin Trade Name Freq PRN Reason Stop Dose Admin Lamotrigine 100 mg 10/25/22 09:00 10/25/22 08:06 Lamotrigine 100 Mg Tablet PO 100 mg DAILY GAVIOTA Administration Medical Decision Making Medical Decision Making [facility] Narrative: Patient is a 22 year old assigned female at with a history of bipolar disorder, depression, and PTSD presenting to the emergency department today with right ankle pain and increased depression. Patient's physical exam was unremarkable. Patient's blood work was unremarkable. Patient's urine showed no acute process. Patient's right ankle x-ray showed no acute process. I explained my physical exam findings as well as all test results to the patient. I answered all questions asked by the patient. Patient is pending CARE team evaluation and will remain in the POD until that is completed. Differential Diagnosis Differential Diagnoses: The differential diagnosis associated with the presentation includes right ankle pain, increased depression Admission/Observation Consideration of admission/observation: Escalation of care including admission/observation considered CARE team will determine if the patient meets inpatient level of psychiatric care. Lab Data MDM Lab Attestation statement: I reviewed the patient's lab results. My interpretation of these studies and their corresponding values is that they are grossly normal. 10/24/22 22:18 10/24/22 22:19 Labs: Lab Results 10/24/22 10/24/22 10/24/22 Range/Units 22:18 22:19 22:19 WBC 6.0 (4.8-10.8) X10*3/uL RBC 4.16 L (4.20-5.50) X10*6/uL Hgb 13.1 (12.0-16.0) g/dl Hct 39.1 (37.0-47.0) % MCV 94.0 (80.0-98.0) fL MCH 31.5 (27.0-33.0) pg MCHC 33.5 (31.0-35.0) g/dl RDW 11.7 (11.0-16.0) % Plt Count 206 (160-400) X10*3/uL MPV 10.3 (9.4-12.3) fL Immature Gran % (Auto) 0.3 (0.0-0.4) % Neut % (Auto) 43.5 L (45-73) % Lymph % (Auto) 48.4 H (20-40) % [place] % (Auto) 6.5 (2-11) % Eos % (Auto) 0.5 (0-4) % Baso % (Auto) 0.8 (0-2) % Lymph # (Auto) 2.9 (1.2-4.9) X10*3/uL [place] # (Auto) 0.4 (0.1-1.2) X10*3/uL Eos # (Auto) 0.0 (0.0-0.4) X10*3/uL Baso # (Auto) 0.1 (0.0-0.2) X10*3/uL Abs Immat Gran (auto) 0.02 (0.00-0.03) X10*3/uL Absolute Neuts (auto) 2.6 (2.0-8.3) x10*3/uL Absolute Nucleated RBC 0.000 (0.0-0.012) X10*3/uL Nucleated RBC % (auto) 0.0 (0.0-0.2) /100WBC Sodium 138 (135-145) mmol/L Potassium 3.5 (3.3-5.1) mmol/L Chloride 104 (96-108) mmol/L Carbon Dioxide 24 (22-29) mmol/L Anion Gap 14 (12-20) BUN 8 L (9-16) mg/dL Creatinine 0.71 (0.5-1.4) mg/dL Estim Creat Clear Calc 116.3 Estimated GFR > 60 Random Glucose 82 (60-115) mg/dL Calcium 10.0 D (8.4-10.2) mg/dL Total Bilirubin 0.6 (0.0-1.0) mg/dL AST 19 (5-31) U/L ALT 9 (0-31) U/L Alkaline Phosphatase 55 (39-117) U/L Total Protein 7.7 (6.5-8.0) g/dL Albumin 4.4 (3.5-5.0) g/dL Urine Color Urine Appearance Urine pH (5.0-9.0) Ur Specific [place] (1.005-1.025) Urine Protein (Neg-Trace) mg/dL Urine Glucose (UA) (Negative) mg/dL Urine Ketones (Negative) mg/dL Urine Blood (Negative) Urine Nitrite (Negative) Ur Leukocyte Esterase (Negative) Urine Test (NEGATIVE) Urine Opiates Screen (Not Detect) Urine Fentanyl Screen (Not Detect) Ur Barbiturates Screen (Not Detect) Valproic Acid (50.0-100.0) mcg/mL Ur Phencyclidine Scrn (Not Detect) Ur Amphetamines Screen (Not Detect) U Benzodiazepines Scrn (Not Detect) Urine Cocaine Screen (Not Detect) U Marijuana (THC) Screen (Not Detect) Ethyl Alcohol < 10 mg/dL 10/24/22 10/24/22 10/24/22 Range/Units 22:19 22:20 22:20 WBC (4.8-10.8) X10*3/uL RBC (4.20-5.50) X10*6/uL Hgb (12.0-16.0) g/dl Hct (37.0-47.0) % MCV (80.0-98.0) fL MCH (27.0-33.0) pg MCHC (31.0-35.0) g/dl RDW (11.0-16.0) % Plt Count (160-400) X10*3/uL MPV (9.4-12.3) fL Immature Gran % (Auto) (0.0-0.4) % Neut % (Auto) (45-73) % Lymph % (Auto) (20-40) % [place] % (Auto) (2-11) % Eos % (Auto) (0-4) % Baso % (Auto) (0-2) % Lymph # (Auto) (1.2-4.9) X10*3/uL [place] # (Auto) (0.1-1.2) X10*3/uL Eos # (Auto) (0.0-0.4) X10*3/uL Baso # (Auto) (0.0-0.2) X10*3/uL Abs Immat Gran (auto) (0.00-0.03) X10*3/uL Absolute Neuts (auto) (2.0-8.3) x10*3/uL Absolute Nucleated RBC (0.0-0.012) X10*3/uL Nucleated RBC % (auto) (0.0-0.2) /100WBC Sodium (135-145) mmol/L Potassium (3.3-5.1) mmol/L Chloride (96-108) mmol/L Carbon Dioxide (22-29) mmol/L Anion Gap (12-20) BUN (9-16) mg/dL Creatinine (0.5-1.4) mg/dL Estim Creat Clear Calc Estimated GFR Random Glucose (60-115) mg/dL Calcium (8.4-10.2) mg/dL Total Bilirubin (0.0-1.0) mg/dL AST (5-31) U/L ALT (0-31) U/L Alkaline Phosphatase (39-117) U/L Total Protein (6.5-8.0) g/dL Albumin (3.5-5.0) g/dL Urine Color Yellow Urine Appearance Clear Urine pH 6.0 (5.0-9.0) Ur Specific [place] <= 1.005 (1.005-1.025) Urine Protein Negative (Neg-Trace) mg/dL Urine Glucose (UA) Negative (Negative) mg/dL Urine Ketones Negative (Negative) mg/dL Urine Blood Negative (Negative) Urine Nitrite Negative (Negative) Ur Leukocyte Esterase Negative (Negative) Urine Test (NEGATIVE) Urine Opiates Screen Not Detected (Not Detect) Urine Fentanyl Screen Not Detected (Not Detect) Ur Barbiturates Screen Not Detected (Not Detect) Valproic Acid 30.8 L (50.0-100.0) mcg/mL Ur Phencyclidine Scrn Not Detected (Not Detect) Ur Amphetamines Screen Not Detected (Not Detect) U Benzodiazepines Scrn Not Detected (Not Detect) Urine Cocaine Screen Not Detected (Not Detect) U Marijuana (THC) Screen Not Detected (Not Detect) Ethyl Alcohol mg/dL 10/24/22 Range/Units 22:20 WBC (4.8-10.8) X10*3/uL RBC (4.20-5.50) X10*6/uL Hgb (12.0-16.0) g/dl Hct (37.0-47.0) % MCV (80.0-98.0) fL MCH (27.0-33.0) pg MCHC (31.0-35.0) g/dl RDW (11.0-16.0) % Plt Count (160-400) X10*3/uL MPV (9.4-12.3) fL Immature Gran % (Auto) (0.0-0.4) % Neut % (Auto) (45-73) % Lymph % (Auto) (20-40) % [place] % (Auto) (2-11) % Eos % (Auto) (0-4) % Baso % (Auto) (0-2) % Lymph # (Auto) (1.2-4.9) X10*3/uL [place] # (Auto) (0.1-1.2) X10*3/uL Eos # (Auto) (0.0-0.4) X10*3/uL Baso # (Auto) (0.0-0.2) X10*3/uL Abs Immat Gran (auto) (0.00-0.03) X10*3/uL Absolute Neuts (auto) (2.0-8.3) x10*3/uL Absolute Nucleated RBC (0.0-0.012) X10*3/uL Nucleated RBC % (auto) (0.0-0.2) /100WBC Sodium (135-145) mmol/L Potassium (3.3-5.1) mmol/L Chloride (96-108) mmol/L Carbon Dioxide (22-29) mmol/L Anion Gap (12-20) BUN (9-16) mg/dL Creatinine (0.5-1.4) mg/dL Estim Creat Clear Calc Estimated GFR Random Glucose (60-115) mg/dL Calcium (8.4-10.2) mg/dL Total Bilirubin (0.0-1.0) mg/dL AST (5-31) U/L ALT (0-31) U/L Alkaline Phosphatase (39-117) U/L Total Protein (6.5-8.0) g/dL Albumin (3.5-5.0) g/dL Urine Color Urine Appearance Urine pH (5.0-9.0) Ur Specific [place] (1.005-1.025) Urine Protein (Neg-Trace) mg/dL Urine Glucose (UA) (Negative) mg/dL Urine Ketones (Negative) mg/dL Urine Blood (Negative) Urine Nitrite (Negative) Ur Leukocyte Esterase (Negative) Urine Test NEGATIVE (NEGATIVE) Urine Opiates Screen (Not Detect) Urine Fentanyl Screen (Not Detect) Ur Barbiturates Screen (Not Detect) Valproic Acid (50.0-100.0) mcg/mL Ur Phencyclidine Scrn (Not Detect) Ur Amphetamines Screen (Not Detect) U Benzodiazepines Scrn (Not Detect) Urine Cocaine Screen (Not Detect) U Marijuana (THC) Screen (Not Detect) Ethyl Alcohol mg/dL Independent Interpretation I performed an independent interpretation of an: Plain X-Ray Interpretation: My interpretation is in agreement with the radiologist's impression of this imaging study. EXAMINATION: XR ANKLE, RIGHT CLINICAL INFORMATION: Pain, injury, fall.? COMPARISON: 09/07/2007? TECHNIQUE: AP, lateral, and mortise views of the right ankle. FINDINGS: Diffuse nonspecific soft tissue thickening. No acute fractures or subluxation. No unexpected radiopaque foreign bodies.? XR/XR ankle RT min 3V IMPRESSION: 1.? Nonspecific soft tissue thickening. 2.? No acute fractures or subluxation. Dictated By: Arlin Glez Signed By: Electronically signed by Arlin Glez 10/25/22 0023 Critical Care Time Critical Care Time Critical Care Time: Yes Total Critical Care Time: 30 Attestation: I spent 30 minutes of Critical Care Time with this patient. This does not include time spent on separately reported billable procedures. Discharge Plan Discharge Clinical Impression: Depression, Ankle pain Patient Disposition: Still a Patient Prescriptions: No Action clonidine HCl 0.1 mg tablet 0.1 mg PO Q6H PRN (Reason: panic attack) mirtazapine 15 mg tablet 15 mg PO BEDTIME trazodone 100 mg tablet 100 mg PO BEDTIME lamotrigine 100 mg tablet 100 mg PO DAILY Interventions: [place]-Suicide Risk Severity Scale Last Done: 10/25/22 06:56
[2022-10-24 22:26] LABS: MANUAL DIFF FLAG NO
[2022-10-24 22:35] LABS: Appearance Urine Clear; Color Urine Yellow; Glucose Urine UA Negative (Negative); Leukocyte Esterase Urine Negative (Negative); Nitrite Urine Negative (Negative); Specific Gravity - Urine <= 1.005 (1.005-1.025); UPreg QC Valid YES; Urine Blood Negative (Negative); Urine Ketones Negative (Negative); Urine Pregnancy NEGATIVE (NEGATIVE); Urine Protein Negative (Neg-Trace)
[2022-10-24 22:36] LABS: Basophils Absolute Auto 0.1 X10*3/uL (0.0-0.2); Basophils Percent Auto 0.8 % (0-2); Eosinophils Percent Auto 0.5 % (0-4); Hematocrit 39.1 % (37.0-47.0); Hemoglobin 13.1 g/dl (12.0-16.0); Imm Gran Abs Auto 0.02 X10*3/uL (0.00-0.03); Imm Gran Pct Auto 0.3 % (0.0-0.4); Lymphocytes Absolute Auto 2.9 X10*3/uL (1.2-4.9); Lymphocytes Percent Auto 48.4 % (20-40); Mean Corpuscular HGB Conc 33.5 g/dl (31.0-35.0); Mean Corpuscular Hemoglobin 31.5 pg (27.0-33.0); Mean Platelet Volume 10.3 fL (9.4-12.3); Monocytes Absolute Auto 0.4 X10*3/uL (0.1-1.2); Monocytes Percent Auto 6.5 % (2-11); Neutrophils Absolute Auto 2.6 x10*3/uL (2.0-8.3); Neutrophils Percent Auto 43.5 % (45-73); Platelet Count 206 X10*3/uL (160-400); Red Blood Count 4.16 X10*6/uL (4.20-5.50); Red Cell Distribution Width 11.7 % (11.0-16.0)
[2022-10-24 22:42] LABS: Valproate 30.8 mcg/mL (50.0-100.0)
[2022-10-24 22:44] LABS: Alanine Aminotransferase 9 U/L (0-31); Albumin Level 4.4 g/dL (3.5-5.0); Alkaline Phosphatase 55 U/L (39-117); Anion Gap 14 (12-20); Aspartate Amino Transferase 19 U/L (5-31); Bilirubin Total 0.6 mg/dL (0.0-1.0); Blood Urea Nitrogen 8 mg/dL (9-16); Carbon Dioxide 24 mmol/L (22-29); Chloride 104 mmol/L (96-108); Creatinine Clr Calc Pharmacy 116.3; Estimated Glomerular Filt Rate > 60; Ethanol < 10 mg/dL; Glucose Random 82 mg/dL (60-115); Potassium 3.5 mmol/L (3.3-5.1); Sodium 138 mmol/L (135-145); Total Protein 7.7 g/dL (6.5-8.0)
[2022-10-24 22:45] LABS: Amphetamine Screen Urine Not Detected (Not Detect); Barbiturates, Urine Not Detected (Not Detect); Benzodiazepines Screen Urine Not Detected (Not Detect); Cannabinoid Screen Urine Not Detected (Not Detect); Cocaine Screen Urine Not Detected (Not Detect); Fentanyl, urine Not Detected (Not Detect); Opiate Screen Urine Not Detected (Not Detect); Phencyclidine Screen Urine Not Detected (Not Detect)
--- NOTE | 2022-10-25 | ECG_ITS ---
Test Reason : QT Prolongation Blood Pressure : / mmHG Vent. Rate : 053 BPM Atrial Rate : 053 BPM P-R Int : 154 ms QRS Dur : 076 ms QT Int : 424 ms P-R-T Axes : 059 072 066 degrees QTc Int : 397 ms Sinus bradycardia with sinus arrhythmia Otherwise normal ECG When compared with ECG of 07-JAN-2022 14:50, No significant change was found Referred By: Angelica Calderon Electronically Signed By:CEASAR VIVAS
[2022-10-25 06:33] VITALS: BP 97/53; PULSE 60; RESP 15; TEMP 36.5; O2SAT 99
--- NOTE | 2022-10-25 06:57 | PC.NURSE ---
PATIENT SLEPT THROUGH THE NIGHT, NO DISTRESS OBSERVED/REPORTED, MED REC COMPLETED/APPROVED, BEHAVIOR NON CONCERNING, CARE CONSULT ORDERED/PENDING EVALUATION, VSS, RIGHT ANKLE X-RAY NEGATIVE FOR FRACTURE, WILL CONTINUE TO MONITOR.
--- NOTE | 2022-10-25 07:16 | PC.NURSE ---
Resumed care of patient this morning, she is currently sleeping in bed, no reports from overnights, awaiting care team to see her this morning, needing medication review d/t recent medication changes.
[2022-10-25] MEDS: lamoTRIgine 100 MG TABLET PO (08:06)
--- NOTE | 2022-10-25 10:11 | PC.NURSE ---
Since Pt has gotten up she has been pacing back and forth, talking with staff about multiple different subjects, interacting with other patients, she has called mom and talked with mom this morning, and has showered. She has verbalized she is upset her medications are not the way they are suppose to be, and that she wants her dosages figured out because she feels that she is not getting a say in her medications
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
[2022-10-25] MEDS: Divalproex Sodium ER 250 MG TAB.ER.24H PO (12:31)
[2022-10-25] MEDS: Perphenazine 2 MG TABLET PO (12:31)
--- NOTE | 2022-10-25 12:58 | PC.NURSE ---
EKG and Covid swab obtained for patient to be transferred to today.
--- NOTE | 2022-10-25 13:08 | PC.NURSE ---
Nurse to nurse given to [facility] nurse at this time
[2022-10-25 13:13] LABS: COVID-19 Test Negative (Negative); IDNOW Serial# 08D9AD1C
--- NOTE | 2022-10-25 13:28 | MHC.CARE ---
patient to be admitted inpatient psych [place] [facility] in patient's chart.
--- NOTE | 2022-10-25 13:53 | PHA.MEDREC ---
Pharmacy Consult ? Medication Reconciliation Pharmacy has completed the medication reconciliation.pharmacy has reviewed med rec done by lawrence
[2022-10-25 15:00] VITALS: PULSE 78; TEMP 36.7; O2SAT 99
--- NOTE | 2022-10-25 15:57 | PC.ADMIT ---
pt is a 22 year old female who presented to [facility] saying her meds have been changed and she wants them changed back. pt reported that her outpatient providers changed her meds too much and she says feels more depressed. during admission, pt appears to manic and hyperverbal. pt signed a CV and all legals. pt was happy to be on the unit and began socializing with peers. start treatment plan and promote safety.
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
--- NOTE | 2022-10-25 17:42 | PC.NURSE ---
pt signed a 3 day on 10/25/22. it will be up 10/29/22
[2022-10-25] MEDS: Mirtazapine 15 MG TABLET PO (21:01)
[2022-10-25] MEDS: Divalproex Sodium ER 500 MG TAB.ER.24H PO (21:01)
--- NOTE | 2022-10-25 22:25 | PC.NURSE ---
pt was being aggressive in the kitchen. after being told to leave, she yelled verbally assaults at staff. pt calmed down and went to her room.
[2022-10-26 08:30] VITALS: BP 96/64; PULSE 77; RESP 18; TEMP 36.8; O2SAT 99
[2022-10-26] MEDS: Perphenazine 2 MG TABLET PO ×2 (09:13→13:50)
[2022-10-26] MEDS: lamoTRIgine 100 MG TABLET PO (09:13)
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
[2022-10-26 10:59] LABS: Cholesterol 165 mg/dL; HDL Cholesterol 54 mg/dL; LDL Cholesterol Calculated 104 mg/dl; Triglycerides 39 mg/dL
[2022-10-26 11:22] LABS: Estimated Average Glucose 91 mg/dL; Hemoglobin A1c % 4.8 %
[2022-10-26] MEDS: Nicotine Polacrilex 2 MG GUM 4 MG BUCCAL ×4 (12:24→21:40)
[2022-10-26 13:50] VITALS: BP 109/62
[2022-10-26] MEDS: cloNIDine HCL 0.1 MG TABLET PO (13:56)
[2022-10-26 21:00] VITALS: BP 113/67; PULSE 74; TEMP 35.6; O2SAT 100
[2022-10-26] MEDS: Divalproex Sodium ER 500 MG TAB.ER.24H 1500 MG PO (21:48)
[2022-10-26] MEDS: Mirtazapine 15 MG TABLET PO (21:48)
[2022-10-27 06:00] VITALS: BP 121/60; PULSE 80; RESP 16
[2022-10-27] MEDS: Perphenazine 4 MG TABLET PO ×2 (08:39→14:07)
--- NOTE | 2022-10-27 09:54 | P.PNPSI_ITS ---
Subjective Subjective Date of Service: 10/27/22 Reason For Visit: manic Interim History: met w/ patient; discussed with team pt remains manic, with pressured speech, irritable and with delusional thoughts talking, saying we don't have much time left..the [place] is drying up and that's where god locked up all the angels.... Pt talked about chronic anxiety and says she needs her ativan, however none has been prescribed since 01/2022. Pt is taking medications, sleeping and eating well. Mental Status Exam Mental Status Exam Narrative: Pt is alert and oriented; behavior is cooperative but easily irritated, verbose, somewhat intrusive; patient is not in distress; dressed in casual attire, groomed with good hygiene; mood is described as pissed and affect irritable, expansive; eye contact appropriate; Speech is moderately pressured; normal volume and prosody; some psychomotor agitation present; thought process can be goal directed, but jumps to various topics and is very circumstantial; Thought content is on tx; pt with delusional and paranoid thoughts; denies any SI/HI. There is no evidence of perceptual disturbance. Patients insight and judgment are impaired. Diagnostics Vital Signs (24Hr): Vital Signs - 24 hr 10/26/22 13:50 10/26/22 21:00 10/27/22 06:00 Temperature 96.1 F L Pulse Rate 74 80 Respiratory Rate 16 Blood Pressure 109/62 113/67 121/60 Pulse Oximetry 100 Oxygen Delivery Method Room Air BMI result Body Mass Index 22.6 Labs 10/24/22 22:18 10/24/22 22:19 Labs: Laboratory Results - last 48 hr 10/25/22 10/26/22 10/26/22 12:44 10:27 10:27 Estimat Average Glucose 91 Hemoglobin A1c % 4.8 Triglycerides 39 Cholesterol 165 LDL Cholesterol, Calc 104 HDL Cholesterol 54 COVID-19 (SIENNA) Negative COVID-19 Clin Com See Note Imaging Radiology Impressions: ITS Impressions Ankle X-Ray 10/25/22 00:13 IMPRESSION: 1. Nonspecific soft tissue thickening. 2. No acute fractures or subluxation. Medications Medications Current Medications Acetaminophen (Acetaminophen 325 Mg Tablet) 650 mg PO Q6H PRN PRN Reason: Headache/Pain Mild Scale (1-3) Al Hydroxide/Mg Hydroxide (Magnesium Hydrox/Alum Hydrox 30 Ml Oral.Susp) 30 ml PO Q6H PRN PRN Reason: Heartburn/Nausea Clonidine HCl (Clonidine Hcl 0.1 Mg Tablet) 0.1 mg PO Q6H PRN; Protocol PRN Reason: panic attack Last Admin: 10/26/22 13:56 Dose: 0.1 mg Divalproex Sodium (Divalproex Sodium Er 500 Mg Tab.Er.24h) 1,500 mg PO BEDTIME [facility] Last Admin: 10/26/22 21:48 Dose: 1,500 mg Hydroxyzine HCl (Hydroxyzine Hcl 25 Mg Tablet) 25 mg PO Q6H PRN PRN Reason: Anxiety Magnesium Hydroxide (Milk Of Magnesia 30 Ml Oral.Susp) 30 ml PO DAILY PRN PRN Reason: Constipation Mirtazapine (Mirtazapine 15 Mg Tablet) 15 mg PO BEDTIME [facility] Last Admin: 10/26/22 21:48 Dose: 15 mg Nicotine (Nicotine 21 Mg Patch.Td24) 21 mg TRANSDERMA DAILY [facility] Last Admin: 10/27/22 08:40 Dose: Not Given Nicotine Polacrilex (Nicotine Polacrilex 2 Mg Gum) 4 mg BUCCAL Q2H PRN PRN Reason: nicotine cravings Last Admin: 10/26/22 21:40 Dose: 4 mg Perphenazine (Perphenazine 4 Mg Tablet) 4 mg PO DAILY [facility] Last Admin: 10/27/22 08:39 Dose: 4 mg Perphenazine (Perphenazine 2 Mg Tablet) 2 mg PO DAILY@1500 [facility] Last Admin: 10/26/22 13:50 Dose: 2 mg Trazodone HCl (Trazodone Hcl 50 Mg Tablet) 50 mg PO BEDTIME MRX1 PRN PRN Reason: continued Insomnia Allergies Allergies Allergy/AdvReac Type Severity Reaction Status Date / Time insect venom [MOSQUITO] Allergy Unknown UNKNOWN Verified 03/09/22 18:01 paliperidone [From INVEGA] Allergy Unknown DYSTONIC Verified 03/09/22 18:01 REACTION haloperidol [HALOPERIDOL] AdvReac Intermediate Dystonic Verified 03/09/22 18:01 reaction Assessment & Plan Assessment & Plan (1) Bipolar 1 disorder: Status: Acute Code(s): F31.9 - Bipolar disorder, unspecified (2) Chronic post-traumatic stress disorder (PTSD): Status: Acute Code(s): F43.12 - Post-traumatic stress disorder, chronic Plan pt is a 22 yo female with hx of bipolar disorder, PTSD, who presents for manic behavior in face of medications being lowered/changed. Pt is a little unclear on details; she says depakote and perphenazine were lowered...that she's been off them for several days...maybe that she was supposed to be titrated back on them? she is not sure and says she has multiple prescribers. No sleep for 2 nights. Pt has some paranoid delusions, talking about [place], world maps are wrong....ocean is full of bodies... Regarding Lamictal, she reports taking it regularly and has only been off it for 2 days. Pt agrees to get back on Depakote and perphenazine now. Patient was suicidal yesterday, with plan to jump in traffic, but today she says no longer. Some AVH.? -Dimas Roberson reports that [facility] however even while there would and up missing doses of medications frequently as she was not available to the VNA; also using cannabis. She left there about a week or 2 ago, possibly kicked out and went to [facility] apartment for about 1 day prior to her needing to come to the hospital. He says because she was missing numerous doses he decided to lower her medications to get a clear indication of whether there are helpful in the 1st place. He agrees however that Depakote 1500 mg was helpful in the past and that patient seems to benefit from Trilafon; -reviewed labs and subtherapeutic depakote; Urine negative; UDS negative; other labs WN Hospital course: 10/26 Patient remains manic, hyperverbal and with delusional thinking. Patient said she wants to be on Depakote and perphenazine 4 mg in the morning and 2 mg in the afternoon (since the spiritual realm opens at 15:00.) Patient agrees to get off Lamictal since she has history of missing doses and agrees to avoid risk of Percy Frye's 10/27 still manic, irritable, but sleeping and taking meds; will increase Perphenazine at patients request. PLAN: 3 day notice Q 15 minute checks add perphenazine prn Depakote ER 1500 mg q.h.s. INCREASEd Perphenazine to 4 mg BID at 0900, 1500 Since will start mood stabilizers, pt can remain on Mirtazapine qhs for now; it might possibly help with sleep and she did sleep last night despite not being on mood stabilizer DC Lamictal; too much history of missing doses Continue Trazodone 50 mg qhs Patient educated on: diagnosis and medication risk/benefits Informed Consent: understands, does not understand and further education needed Reason for continued inpatient stay Substantial Risk for: med/psych decompensation Time Spent With Patient Time: Total time managing care of this patient today ____ minutes.
[2022-10-27] MEDS: Nicotine Polacrilex 2 MG GUM 4 MG BUCCAL (12:16)
[2022-10-27 21:15] VITALS: BP 103/64; PULSE 75; TEMP 36.2; O2SAT 98
[2022-10-27] MEDS: Divalproex Sodium ER 500 MG TAB.ER.24H 1500 MG PO (21:26)
[2022-10-27] MEDS: traZODone HCL 50 MG TABLET PO (21:27)
[2022-10-27] MEDS: cloNIDine HCL 0.1 MG TABLET PO (21:35)
[2022-10-28] MEDS: Perphenazine 4 MG TABLET PO ×2 (08:49→14:44)
[2022-10-28 08:54] VITALS: BP 94/54; PULSE 64; RESP 18; TEMP 36.2; O2SAT 100
--- NOTE | 2022-10-28 09:55 | HO.PSYCHPN ---
Subjective Subjective Date of Service: 10/28/22 Reason For Visit: manic Interim History: Met with patient; discussed with team Patient doing much better today. She still has mildly pressured speech however her thought process is linear and logical and she is talking about pertinent subjects, self reflecting and discussing her own treatment. She regrets her outburst yesterday. She says I was just upset..... I respond however was raised. I Know I am not my past and I want to keep learning how to express herself without anger and fear but that it's difficult to shed old habits. She says I am on these medications because I need help, I need something in me telling me to calm down... Talking about her illness and how she is working on viewing herself in a positive way, she says she learned to say I am not bipolar... I have bipolar but it does not define me. Patient says that being on the unit is not all that bad after all. She thinks her struggles with it are about a level of control over herself and references to being locked in a closets as a kid. Patient sleeping well and demonstrating much improved behavioral and impulse control. She says the longer she is on the medications the more she is able to come down and think clearly. Mental Status Exam Mental Status Exam Narrative: Pt is alert and oriented; behavior is cooperative, more calm, in better self control; verbose but more interruptible; but not intrusive and appropriate with peers; patient is not in distress; dressed in casual attire, groomed with good hygiene; mood is described as ok and affect congruent, more calm, brighter; eye contact appropriate; Speech is moderately pressured; normal volume and prosody; no psychomotor agitation present; thought process is goal directed and logical; also circumstantial but overall much more organized; Thought content is on tx; no delusional or paranoid thoughts expressed; denies any SI/HI. There is no evidence of perceptual disturbance. Patients insight and judgment are impaired but much improved and headed towards baseline. Diagnostics Vital Signs (24Hr): Vital Signs - 24 hr 10/27/22 21:15 10/28/22 08:54 Temperature 97.1 F 97.1 F Pulse Rate 75 64 Respiratory Rate 18 Blood Pressure 103/64 94/54 L Pulse Oximetry 98 100 Oxygen Delivery Method Room Air Room Air BMI result Body Mass Index 22.6 Labs 10/24/22 22:18 10/24/22 22:19 Labs: Laboratory Results - last 48 hr 10/26/22 10/26/22 10:27 10:27 Estimat Average Glucose 91 Hemoglobin A1c % 4.8 Triglycerides 39 Cholesterol 165 LDL Cholesterol, Calc 104 HDL Cholesterol 54 Imaging Radiology Impressions: ITS Impressions Ankle X-Ray 10/25/22 00:13 IMPRESSION: 1. Nonspecific soft tissue thickening. 2. No acute fractures or subluxation. Medications Medications Current Medications Acetaminophen (Acetaminophen 325 Mg Tablet) 650 mg PO Q6H PRN PRN Reason: Headache/Pain Mild Scale (1-3) Al Hydroxide/Mg Hydroxide (Magnesium Hydrox/Alum Hydrox 30 Ml Oral.Susp) 30 ml PO Q6H PRN PRN Reason: Heartburn/Nausea Clonidine HCl (Clonidine Hcl 0.1 Mg Tablet) 0.1 mg PO Q6H PRN; Protocol PRN Reason: panic attack Last Admin: 10/27/22 21:35 Dose: 0.1 mg Divalproex Sodium (Divalproex Sodium Er 500 Mg Tab.Er.24h) 1,500 mg PO BEDTIME [facility] Last Admin: 10/27/22 21:26 Dose: 1,500 mg Hydroxyzine HCl (Hydroxyzine Hcl 25 Mg Tablet) 25 mg PO Q6H PRN PRN Reason: Anxiety Magnesium Hydroxide (Milk Of Magnesia 30 Ml Oral.Susp) 30 ml PO DAILY PRN PRN Reason: Constipation Nicotine (Nicotine 21 Mg Patch.Td24) 21 mg TRANSDERMA DAILY [facility] Last Admin: 10/28/22 08:55 Dose: Not Given Nicotine Polacrilex (Nicotine Polacrilex 2 Mg Gum) 4 mg BUCCAL Q2H PRN PRN Reason: nicotine cravings Last Admin: 10/27/22 12:16 Dose: 4 mg Perphenazine (Perphenazine 4 Mg Tablet) 4 mg PO DAILY [facility] Last Admin: 10/28/22 08:49 Dose: 4 mg Perphenazine (Perphenazine 4 Mg Tablet) 4 mg PO DAILY@1500 [facility] Last Admin: 10/27/22 14:07 Dose: 4 mg Perphenazine (Perphenazine 4 Mg Tablet) 4 mg PO TID PRN PRN Reason: anxiety/agitation Trazodone HCl (Trazodone Hcl 50 Mg Tablet) 50 mg PO BEDTIME MRX1 PRN PRN Reason: continued Insomnia Last Admin: 10/27/22 21:27 Dose: 50 mg Allergies Allergies Allergy/AdvReac Type Severity Reaction Status Date / Time insect venom [MOSQUITO] Allergy Unknown UNKNOWN Verified 03/09/22 18:01 paliperidone [From INVEGA] Allergy Unknown DYSTONIC Verified 03/09/22 18:01 REACTION haloperidol [HALOPERIDOL] AdvReac Intermediate Dystonic Verified 03/09/22 18:01 reaction Assessment & Plan Assessment & Plan (1) Bipolar 1 disorder: Status: Acute Code(s): F31.9 - Bipolar disorder, unspecified (2) Chronic post-traumatic stress disorder (PTSD): Status: Acute Code(s): F43.12 - Post-traumatic stress disorder, chronic Plan pt is a 22 yo female with hx of bipolar disorder, PTSD, who presents for manic behavior in face of medications being lowered/changed. Pt is a little unclear on details; she says depakote and perphenazine were lowered...that she's been off them for several days...maybe that she was supposed to be titrated back on them? she is not sure and says she has multiple prescribers. No sleep for 2 nights. Pt has some paranoid delusions, talking about [place], world maps are wrong....ocean is full of bodies... Regarding Lamictal, she reports taking it regularly and has only been off it for 2 days. Pt agrees to get back on Depakote and perphenazine now. Patient was suicidal yesterday, with plan to jump in traffic, but today she says no longer. Some AVH.? -Dimas Roberson reports that [facility] was [facility] however even while there would and up missing doses of medications frequently as she was not available to the [facility]; also using cannabis. She left there about a week or 2 ago, possibly kicked out and went to [facility] apartment for about 1 day prior to her needing to come to the hospital. He says because she was missing numerous doses he decided to lower her medications to get a clear indication of whether there are helpful in the 1st place. He agrees however that Depakote 1500 mg was helpful in the past and that patient seems to benefit from Trilafon; -reviewed labs and subtherapeutic depakote; Urine negative; UDS negative; other labs WNL Hospital course: 10/26 Patient remains manic, hyperverbal and with delusional thinking. Patient said she wants to be on Depakote and perphenazine 4 mg in the morning and 2 mg in the afternoon (since the spiritual realm opens at 15:00.) Patient agrees to get off Lamictal since she has history of missing doses and agrees to avoid risk of Percy Frye's 10/27 still manic, irritable, but sleeping and taking meds; will increase Perphenazine at patients request. Patient postured and made some verbal threats to hit staff; later made threat to hurt herself if she was not discharged. Patient however remained safe and had no further outbursts, returning to behavioral control. Patient has no history of actual suicide attempts 10/28 patient doing much better today, calm, appropriate and even demonstrating good insight into her history, diagnosis and need for medication; she apologizes for yesterday's outburst, takes responsibility but also aware of the origins of her emotional lability. Patient looking for to discharge tomorrow and will meet with her outpatient worker today. Staff who know her report that she seems close to baseline. If patient remains in adequate behavioral control will very likely discharge her tomorrow when her 3 day notice is due. PLAN: 3 day notice Q 15 minute checks add perphenazine prn Depakote ER 1500 mg q.h.s. Check Labs/level on 10/29 continue Perphenazine to 4 mg BID at 0900, 1500 DC'd remeron; concern it could be prolonging manic state; DC Lamictal; too much history of missing doses Continue Trazodone 50 mg qhs Patient educated on: diagnosis, medication risk/benefits and therapeutic strategies Informed Consent: understands Reason for continued inpatient stay Substantial Risk for: stable for discharge and med/psych decompensation Time Spent With Patient Time: Total time managing care of this patient today ____ minutes.
[2022-10-28] MEDS: Nicotine Polacrilex 2 MG GUM 4 MG BUCCAL ×2 (11:40→21:49)
[2022-10-28 18:00] VITALS: BP 122/68; PULSE 87; RESP 16; TEMP 36.6; O2SAT 98
[2022-10-28] MEDS: Divalproex Sodium ER 500 MG TAB.ER.24H 1500 MG PO (21:05)
[2022-10-28] MEDS: traZODone HCL 50 MG TABLET PO (22:07)
[2022-10-28] MEDS: cloNIDine HCL 0.1 MG TABLET PO (22:07)
[2022-10-29] MEDS: Perphenazine 4 MG TABLET PO (08:59)
[2022-10-29 09:00] VITALS: BP 94/54; PULSE 114; RESP 20; TEMP 36.1; O2SAT 96
[2022-10-29 09:21] LABS: Valproate 97.3 mcg/mL (50.0-100.0)
[2022-10-29 09:25] LABS: Alanine Aminotransferase 5 U/L (0-31); Alkaline Phosphatase 51 U/L (39-117); Aspartate Amino Transferase 15 U/L (5-31); Bilirubin Direct 0.1 mg/dL (0.0-0.5); Bilirubin Total 0.4 mg/dL (0.0-1.0); Total Protein 7.2 g/dL (6.5-8.0)
--- NOTE | 2022-10-29 10:24 | P.DS_ITS ---
DS: Providers Provider Date of Service: 10/29/22 Date of admission: 10/25/22 13:37 Date of discharge: 10/29/22 Primary care physician: Unknown Physician Attending physician on admission: Mario Aranda Attending physician on discharge: Mario Aranda DS: Diagnosis Discharge Diagnosis (1) Bipolar 1 disorder: Status: Acute (2) Chronic post-traumatic stress disorder (PTSD): Status: Acute DS: Medications Discharge Medications Home Medications: Previous Rx's Medication Instructions Recorded clonidine HCl 0.1 mg tablet 0.1 mg PO Q6H PRN panic 10/29/22 attack/anxiety 30 days #90 tabs divalproex 500 mg tablet,extended 1,500 mg PO BEDTIME 30 days #90 10/29/22 release 24 hr tabs nicotine (polacrilex) 2 mg gum 4 mg buccal Q2H PRN nicotine 10/29/22 cravings 30 days #110 ea perphenazine 4 mg tablet 4 mg PO BID PRN anxiety/agitation 10/29/22 30 days #30 tabs perphenazine 4 mg tablet 4 mg PO BID@0900,1500 30 days #60 10/29/22 tabs trazodone 100 mg tablet 100 mg PO BEDTIME PRN insomnia 30 10/29/22 days #30 tabs Mental Status Exam Mental Status Exam Narrative: Pt is alert and oriented; behavior is cooperative, more calm, in better self control; verbose but more interruptible; but not intrusive and appropriate with peers; patient is not in distress; dressed in casual attire, groomed with good hygiene; mood is described as ok and affect congruent, more calm, brighter; eye contact appropriate; Speech is moderately pressured; normal volume and prosody; no psychomotor agitation present; thought process is goal directed and logical; also circumstantial but overall much more organized; Thought content is on tx; no delusional or paranoid thoughts expressed; denies any SI/HI. There is no evidence of perceptual disturbance. Patients insight and judgment are impaired but much improved and headed towards baseline. Data Data Completed and Pending Completed studies during hospitalization [Text1]: 10/24/22 10/24/22 10/24/22 22:18 22:19 22:19 WBC 6.0 RBC 4.16 L Hgb 13.1 Hct 39.1 MCV 94.0 MCH 31.5 MCHC 33.5 RDW 11.7 Plt Count 206 MPV 10.3 Immature Gran % (Auto) 0.3 Neut % (Auto) 43.5 L Lymph % (Auto) 48.4 H [place] % (Auto) 6.5 Eos % (Auto) 0.5 Baso % (Auto) 0.8 Lymph # (Auto) 2.9 [place] # (Auto) 0.4 Eos # (Auto) 0.0 Baso # (Auto) 0.1 Abs Immat Gran (auto) 0.02 Absolute Neuts (auto) 2.6 Absolute Nucleated RBC 0.000 Nucleated RBC % (auto) 0.0 Sodium 138 Potassium 3.5 Chloride 104 Carbon Dioxide 24 Anion Gap 14 BUN 8 L Creatinine 0.71 Estim Creat Clear Calc 116.3 Estimated GFR > 60 Random Glucose 82 Estimat Average Glucose Hemoglobin A1c % Calcium 10.0 D Total Bilirubin 0.6 Direct Bilirubin AST 19 ALT 9 Alkaline Phosphatase 55 Ammonia Total Protein 7.7 Albumin 4.4 Triglycerides Cholesterol LDL Cholesterol, Calc HDL Cholesterol Urine Color Urine Appearance Urine pH Ur Specific [place] Urine Protein Urine Glucose (UA) Urine Ketones Urine Blood Urine Nitrite Ur Leukocyte Esterase Urine Test Urine Opiates Screen Urine Fentanyl Screen Ur Barbiturates Screen Valproic Acid Ur Phencyclidine Scrn Ur Amphetamines Screen U Benzodiazepines Scrn Urine Cocaine Screen U Marijuana (THC) Screen Ethyl Alcohol < 10 COVID-19 ([facility]NA) COVID-19 Clin Com 10/24/22 10/24/22 10/24/22 22:19 22:20 22:20 WBC RBC Hgb Hct MCV MCH MCHC RDW Plt Count MPV Immature Gran % (Auto) Neut % (Auto) Lymph % (Auto) [place] % (Auto) Eos % (Auto) Baso % (Auto) Lymph # (Auto) [place] # (Auto) Eos # (Auto) Baso # (Auto) Abs Immat Gran (auto) Absolute Neuts (auto) Absolute Nucleated RBC Nucleated RBC % (auto) Sodium Potassium Chloride Carbon Dioxide Anion Gap BUN Creatinine Estim Creat Clear Calc Estimated GFR Random Glucose Estimat Average Glucose Hemoglobin A1c % Calcium Total Bilirubin Direct Bilirubin AST ALT Alkaline Phosphatase Ammonia Total Protein Albumin Triglycerides Cholesterol LDL Cholesterol, Calc HDL Cholesterol Urine Color Yellow Urine Appearance Clear Urine pH 6.0 Ur Specific [place] <= 1.005 Urine Protein Negative Urine Glucose (UA) Negative Urine Ketones Negative Urine Blood Negative Urine Nitrite Negative Ur Leukocyte Esterase Negative Urine Test Urine Opiates Screen Not Detected Urine Fentanyl Screen Not Detected Ur Barbiturates Screen Not Detected Valproic Acid 30.8 L Ur Phencyclidine Scrn Not Detected Ur Amphetamines Screen Not Detected U Benzodiazepines Scrn Not Detected Urine Cocaine Screen Not Detected U Marijuana (THC) Screen Not Detected Ethyl Alcohol COVID-19 ([facility]ENNA) COVID-19 Clin Com 10/24/22 10/25/22 10/26/22 22:20 12:44 10:27 WBC RBC Hgb Hct MCV MCH MCHC RDW Plt Count MPV Immature Gran % (Auto) Neut % (Auto) Lymph % (Auto) [place] % (Auto) Eos % (Auto) Baso % (Auto) Lymph # (Auto) [place] # (Auto) Eos # (Auto) Baso # (Auto) Abs Immat Gran (auto) Absolute Neuts (auto) Absolute Nucleated RBC Nucleated RBC % (auto) Sodium Potassium Chloride Carbon Dioxide Anion Gap BUN Creatinine Estim Creat Clear Calc Estimated GFR Random Glucose Estimat Average Glucose 91 Hemoglobin A1c % 4.8 Calcium Total Bilirubin Direct Bilirubin AST ALT Alkaline Phosphatase Ammonia Total Protein Albumin Triglycerides Cholesterol LDL Cholesterol, Calc HDL Cholesterol Urine Color Urine Appearance Urine pH Ur Specific [place] Urine Protein Urine Glucose (UA) Urine Ketones Urine Blood Urine Nitrite Ur Leukocyte Esterase Urine Test NEGATIVE Urine Opiates Screen Urine Fentanyl Screen Ur Barbiturates Screen Valproic Acid Ur Phencyclidine Scrn Ur Amphetamines Screen U Benzodiazepines Scrn Urine Cocaine Screen U Marijuana (THC) Screen Ethyl Alcohol COVID-19 ([facility]ENNA) Negative COVID-19 Clin Com See Note 10/26/22 10/29/22 10/29/22 10:27 08:39 08:39 WBC RBC Hgb Hct MCV MCH MCHC RDW Plt Count MPV Immature Gran % (Auto) Neut % (Auto) Lymph % (Auto) [place] % (Auto) Eos % (Auto) Baso % (Auto) Lymph # (Auto) [place] # (Auto) Eos # (Auto) Baso # (Auto) Abs Immat Gran (auto) Absolute Neuts (auto) Absolute Nucleated RBC Nucleated RBC % (auto) Sodium Potassium Chloride Carbon Dioxide Anion Gap BUN Creatinine Estim Creat Clear Calc Estimated GFR Random Glucose Estimat Average Glucose Hemoglobin A1c % Calcium Total Bilirubin 0.4 Direct Bilirubin 0.1 AST 15 ALT 5 Alkaline Phosphatase 51 Ammonia Pending Total Protein 7.2 Albumin 4.0 Triglycerides 39 Cholesterol 165 LDL Cholesterol, Calc 104 HDL Cholesterol 54 Urine Color Urine Appearance Urine pH Ur Specific [place] Urine Protein Urine Glucose (UA) Urine Ketones Urine Blood Urine Nitrite Ur Leukocyte Esterase Urine Test Urine Opiates Screen Urine Fentanyl Screen Ur Barbiturates Screen Valproic Acid Ur Phencyclidine Scrn Ur Amphetamines Screen U Benzodiazepines Scrn Urine Cocaine Screen U Marijuana (THC) Screen Ethyl Alcohol COVID-19 ([facility]) COVID-19 Clin Com 10/29/22 08:39 WBC RBC Hgb Hct MCV MCH MCHC RDW Plt Count MPV Immature Gran % (Auto) Neut % (Auto) Lymph % (Auto) [place] % (Auto) Eos % (Auto) Baso % (Auto) Lymph # (Auto) [place] # (Auto) Eos # (Auto) Baso # (Auto) Abs Immat Gran (auto) Absolute Neuts (auto) Absolute Nucleated RBC Nucleated RBC % (auto) Sodium Potassium Chloride Carbon Dioxide Anion Gap BUN Creatinine Estim Creat Clear Calc Estimated GFR Random Glucose Estimat Average Glucose Hemoglobin A1c % Calcium Total Bilirubin Direct Bilirubin AST ALT Alkaline Phosphatase Ammonia Total Protein Albumin Triglycerides Cholesterol LDL Cholesterol, Calc HDL Cholesterol Urine Color Urine Appearance Urine pH Ur Specific [place] Urine Protein Urine Glucose (UA) Urine Ketones Urine Blood Urine Nitrite Ur Leukocyte Esterase Urine Test Urine Opiates Screen Urine Fentanyl Screen Ur Barbiturates Screen Valproic Acid 97.3 Ur Phencyclidine Scrn Ur Amphetamines Screen U Benzodiazepines Scrn Urine Cocaine Screen U Marijuana (THC) Screen Ethyl Alcohol COVID-19 ([facility]) COVID-19 Clin Com Imaging Diagnostic Imaging Impressions Ankle X-Ray 10/25/22 00:13 IMPRESSION: 1. Nonspecific soft tissue thickening. 2. No acute fractures or subluxation. DS: Summary Hospital Course Hospital Course: pt is a 22 yo female with hx of bipolar disorder, PTSD, who presents for manic behavior, paranoid delusions, recent SI, in face of medications being lowered/changed and chronically missing doses. On admission, patient was manic, hyperverbal and expressed delusional thinking. Patient was making sexually inappropriate comments towards female staff. Irritable mostly redirectable. Patient agreed to get back on Depakote, continue with perphenazine (which was increased some) and discontinue Lamictal (since she has a history of frequently missing doses of medications); she was not sure why she was on Remeron but given the fact that she was manic, agreed to have a discontinued. Patient quickly signed a 3 day notice wanting to discharge soon. Patient remained irritable with pressured speech as medications were titrated. At 1 point she got very angry she was not discharging and postured, made verbal threats to staff and then threatened to self-harm she was not discharged; this however quickly resolved and the following day patient was doing much better, apologized for her outburst and was much more organized and her speech behavior, with logical and mostly linear thought process and talking about relevant topics such as her treatment, her history of PTSD and her progress with treatment. Pt demonstrating good insight into her history, diagnosis and need for medication. Patient remained calm and appropriate with peers, sleeping through the night and future oriented. She still occasionally made comments about being attracted female staff but otherwise remained in good behavioral and impulse control. Patient's 3 day notice was coming due and she was looking for to discharge. She was still a little hypomanic but Staff who know her well report that she was pretty much at her baseline. Patient returns to [facility] housing and has strong, wraparound outpatient support already in place. Given patient's history, it is likely that at some point she will again intermittently miss medication and decompensate. However this is a chronic issue that she is still working on. Patient is not in imminent risk for harm to self or others and her request for discharge honored. Discussed case with patient's outpatient prescriber Dimas Krishnan who agreed with plan; at discharge informed him of med changes and depakote level. Time spent discussing smoking cessation with patient: 3 to 10 minutes Status at Discharge Functional status at discharge: independent ambulation Overall status at discharge: patient is progressing back to baseline Time Spent with Patient Time attestation: Total time managing care of this patient today ____ minutes. Time spent: Less than 30 minutes Discharge Plan Discharge Anticipated Discharge Date/Time: 10/29/22 11:00 Patient Disposition: Home, Self-Care Discharge Diagnosis: Bipolar I, severe, recurrent, most recent episode manic in partial remission Referrals: [facility] Dimas Krishnan Medication Management [Other] - 11/19/22 9:00 am [facility] Sahara Barrera [Other] - 11/02/22 5:00 pm (Telehealth) [facility] Case Management Nils Gee [Other] - 3-5 Days (Follow up with Nils.) [facility] Rupa Clements [Other] - 3-5 Days (Follow up with Rupa) Discharge Medications: New nicotine (polacrilex) 2 mg Gum 4 mg buccal Q2H PRN (Reason: nicotine cravings) 30 Days Qty: 110 0RF divalproex 500 mg Tablet Extended Release 24 Hr 1,500 mg PO BEDTIME 30 Days Qty: 90 0RF perphenazine 4 mg Tablet 4 mg PO BID@0900,1500 30 Days Qty: 60 0RF perphenazine 4 mg Tablet 4 mg PO BID PRN (Reason: anxiety/agitation) 30 Days Qty: 30 0RF Continued clonidine HCl 0.1 mg tablet 0.1 mg PO Q6H PRN (Reason: panic attack/anxiety) 30 Days Qty: 90 0RF Changed trazodone 100 mg tablet 100 mg PO BEDTIME PRN (Reason: insomnia) 30 Days Qty: 30 0RF Discontinued mirtazapine 15 mg tablet 15 mg PO BEDTIME lamotrigine 100 mg tablet 100 mg PO DAILY Discharge Orders: Discharge Order (Routine); Ordered 10/29/22 Ordered By: Mario Aranda Diet: Regular diet Activity on Discharge: As tolerated Stand Alone Forms: Patient Portal Discharge page, Community Support Care Plan Goals: Maintain mood and safe behaviors Take medications as prescribed Continue to pursue sobriety Practice coping skills Continue with outpatient providers and reach out to them as needed Health Concerns: Mood stability and behaviors Plan of Treatment: Follow up with your PCP, psychiatric provider and other outpatient providers regarding above concerns Take medications as prescribed Assessment: Risk assessment at time of discharge:? Patient was interviewed prior to discharge and found to be fully oriented and without any SI or HI. Patient has insight and demonstrates good judgment in terms of wanting to pursue treatment. Patient is not in imminent risk of harm to self or others and has a safety plan that includes presenting to the closest ER or calling 911 if feeling unsafe.? Patient has been observed closely by nursing and unit staff; patient has not engaged in any behaviors that suggest dangerousness to self or others and has demonstrated appropriate behaviors and impulse control
[2022-10-29 10:56] LABS: Ammonia 31 umol/L (13-55)
== END 2022-10-29 11:15 | disposition home or self-care (01) | DRG 753 ==
LOC: HO.ED 10-25 02:13 → HO.PM5 10-25 13:42
PROVIDERS: Student in an Organized Health Care Education/Training Program; Admitting Provider Psychiatry & Neurology Psychiatry; Emergency Provider Emergency Medicine; Visit Provider Psychiatry & Neurology Psychiatry
DX: F31.12 Bipolar disorder, current episode manic without psychotic features, moderate (principal); F17.210 Nicotine dependence, cigarettes, uncomplicated; F43.12 Post-traumatic stress disorder, chronic; Z71.6 Tobacco abuse counseling; Z20.822 Contact with and (suspected) exposure to COVID-19; Z79.899 Other long term (current) drug therapy
CPT/HCPCS: 36415; 73610; 80053; 80061; 80076; 80164; 80307; 81003; 81025; 82140; 83036; 85025; 87635; 93005; 99285; S9485

== ENCOUNTER 2022-11-02 20:27 | Emergency (ER) | payer OTHER, MEDICAID, SELFPAY ==
[2022-11-02 20:35] VITALS: BP 125/68; PULSE 92; RESP 18; TEMP 36.4; O2SAT 97; BMI 25.1
--- NOTE | 2022-11-02 20:35 | ED.PSYCH ---
HPI - Psych General Chief Complaint: Psychiatric Symptoms Stated Complaint: mental health/ left arm injury Time Seen by Provider: 11/02/22 21:12 Source: patient Mode of arrival: ambulatory Limitations: no limitations History of Present Illness HPI Narrative: Previously of depression does not feel safe like to get admitted M5 denies any SI at this time also had minor injury to the left shoulder yesterday without any deformity moving her left shouldernormal Related Data Home Medications Medication Instructions Recorded Confirmed clonidine HCl 0.1 mg tablet 0.1 mg PO BID PRN Anxiety 11/02/22 11/02/22 mirtazapine 15 mg tablet 15 mg PO BEDTIME 11/02/22 11/02/22 perphenazine 4 mg tablet 6 mg PO BEDTIME PRN 11/02/22 11/02/22 anxiety/agitation Previous Rx's Medication Instructions Recorded divalproex 500 mg tablet,extended 1,500 mg PO BEDTIME 30 days #90 10/29/22 release 24 hr tabs nicotine (polacrilex) 2 mg gum 4 mg buccal Q2H PRN nicotine 10/29/22 cravings 30 days #110 ea perphenazine 4 mg tablet 4 mg PO BID@0900,1500 30 days #60 10/29/22 tabs trazodone 100 mg tablet 100 mg PO BEDTIME PRN insomnia 30 10/29/22 days #30 tabs Allergies Allergy/AdvReac Type Severity Reaction Status Date / Time insect venom [MOSQUITO] Allergy Unknown UNKNOWN Verified 03/09/22 18:01 paliperidone [From INVEGA] Allergy Unknown DYSTONIC Verified 03/09/22 18:01 REACTION haloperidol [HALOPERIDOL] AdvReac Intermediate Dystonic Verified 03/09/22 18:01 reaction Review of Systems Review of Systems: Yes all other systems are reviewed and are negative [facility] Past Medical History Medical History Anxiety Bipolar 1 disorder Bipolar disorder Depression Social History Social History Household Members: None Household Members Other:: Resides at [facility] currently Housing: Apartment Do you presently have visiting nurse or other home services: No Alcohol intake: never Patient Tobacco Use Status: Current everyday Tobacco user Tobacco use type: Cigarette Cigarettes Per Day: 7 Years Smoked: 2 years e-Cigarette/Vaping Use: Currently Using Second Hand Smoke Exposure: No Substance Use Type: Marijuana Advance Directives: No Advance Directives Information Provided: No service: No Sexual orientation: Don't Know Physical Exam Vital Signs: Vital Signs: Last Vital Signs Temp 97.4 F 11/03/22 00:05 Pulse 81 11/03/22 00:05 Resp 19 11/03/22 00:05 BP 106/57 L 11/03/22 00:05 Pulse Ox 99 11/03/22 00:05 O2 Del Method Room Air 11/03/22 00:05 BMI result Body Mass Index 25.1 Appearance: Alert. Oriented X3. No acute distress. Eyes: PERRLA, No Nystagmus ENT: Pharynx normal. Oral Mucosa moist Neck: Normal inspection. Neck supple. CVS: Normal heart rate and rhythm. Pulses normal. Respiratory: No respiratory distress. Equal air entry bilateral, no wheezing/rales/rhonchi Abdomen: Soft and nontender. Bowel sounds are present, no mass palpable, no CVA tenderness Skin: Skin warm and dry. Normal skin color. Normal skin turgor. Extremities: No lower extremity edema. No calf tenderness soft tissue tenderness left shoulder good range of movements psych: Depression+ denies any SI/hallucinations Neuro: Oriented X 3. No motor deficit. No sensory deficit.No cerebellar signs , cranial nerves II-XII intact Course Course Course Narrative: RME - 22 yo female with history of bipolar disorder w/ todd, eating disorder, PTSD, depression who presents to the ER for evaluation of depression for the last 2 days. Denies SI/HI. She also reports left shoulder pain after she hit it on a metal bar in a parking lot yesterday. Recently hospitalized here on M5 10/25- 10/29. Wants to go to the pod to sleep. Patient talking about wanting to be a celebrity and be famous and that she is destined for fame. Plan: medical clearance and CARE team evaluation in the Pod Reevaluation(s) Reevaluation #1: Physician observation: patient is depressed and withdrawn, did not wake up for crisis evaluation. Patient is observation because she is very depressed and needs to be evaluated with likely admission unless she improves. Uneventful night Time: 10:02 Reevaluation #2: seen and cleared by crisis Time: 13:22 Medications Administered Generic Name Dose Route Start Last Admin Trade Name Freq PRN Reason Stop Dose Admin Clonidine HCl 0.1 mg 11/02/22 23:33 11/02/22 23:57 Clonidine Hcl 0.1 Mg Tablet PO 0.1 mg BID PRN Administration Anxiety Protocol Divalproex Sodium 1,500 mg 11/02/22 23:45 11/02/22 23:57 Divalproex Sodium Er 500 Mg Tab.Er.24h PO 1,500 mg BEDTIME GAVIOTA Administration Mirtazapine 15 mg 11/02/22 23:45 11/02/22 23:56 Mirtazapine 15 Mg Tablet PO 15 mg BEDTIME GAVIOTA Administration Perphenazine 4 mg 11/03/22 09:00 11/03/22 10:13 Perphenazine 4 Mg Tablet PO 4 mg BID@0900,1500 GAVIOTA Administration Trazodone HCl 100 mg 11/02/22 23:33 11/02/22 23:57 Trazodone Hcl 100 Mg Tablet PO 100 mg BEDTIME PRN Administration insomnia Discontinued Medications Generic Name Dose Route Start Last Admin Trade Name Alyssa PRN Reason Stop Dose Admin Ibuprofen 600 mg 11/02/22 23:42 11/02/22 23:57 Ibuprofen 600 Mg Tablet PO 11/02/22 23:43 600 mg ONCE ONE Administration Medical Decision Making Medical Decision Making MDM Narrative: Patient with depression will get care team involved for placement Lab Data MDM Lab Attestation statement: I reviewed the patient's lab results. 11/02/22 21:41 11/02/22 21:41 Labs: Lab Results 11/02/22 11/02/22 11/02/22 Range/Units 21:41 21:41 21:41 WBC 6.6 (4.8-10.8) X10*3/uL RBC 3.99 L (4.20-5.50) X10*6/uL Hgb 12.3 (12.0-16.0) g/dl Hct 35.8 L (37.0-47.0) % MCV 89.7 (80.0-98.0) fL MCH 30.8 (27.0-33.0) pg MCHC 34.4 (31.0-35.0) g/dl RDW 11.4 (11.0-16.0) % Plt Count 192 (160-400) X10*3/uL MPV 10.1 (9.4-12.3) fL Immature Gran % (Auto) 0.3 (0.0-0.4) % Neut % (Auto) 43.8 L (45-73) % Lymph % (Auto) 48.9 H (20-40) % Sabine % (Auto) 6.2 (2-11) % Eos % (Auto) 0.5 (0-4) % Baso % (Auto) 0.3 (0-2) % Lymph # (Auto) 3.2 (1.2-4.9) X10*3/uL Sabine # (Auto) 0.4 (0.1-1.2) X10*3/uL Eos # (Auto) 0.0 (0.0-0.4) X10*3/uL Baso # (Auto) 0.0 (0.0-0.2) X10*3/uL Abs Immat Gran (auto) 0.02 (0.00-0.03) X10*3/uL Absolute Neuts (auto) 2.9 (2.0-8.3) x10*3/uL Absolute Nucleated RBC 0.000 (0.0-0.012) X10*3/uL Nucleated RBC % (auto) 0.0 (0.0-0.2) /100WBC Sodium 137 (135-145) mmol/L Potassium 3.5 (3.3-5.1) mmol/L Chloride 103 (96-108) mmol/L Carbon Dioxide 25 (22-29) mmol/L Anion Gap 13 (12-20) BUN 4 L (9-16) mg/dL Creatinine 0.74 (0.5-1.4) mg/dL Estim Creat Clear Calc 115.9 Estimated GFR > 60 Random Glucose 119 H (60-115) mg/dL Calcium 9.5 (8.4-10.2) mg/dL Magnesium 1.8 (1.6-2.6) mg/dL Total Bilirubin 0.5 (0.0-1.0) mg/dL Direct Bilirubin 0.2 (0.0-0.5) mg/dL AST 16 (5-31) U/L ALT 6 (0-31) U/L Alkaline Phosphatase 47 (39-117) U/L Total Protein 6.9 (6.5-8.0) g/dL Albumin 4.1 (3.5-5.0) g/dL Urine Color Urine Appearance Urine pH (5.0-9.0) Ur Specific [employer] (1.005-1.025) Urine Protein (Neg-Trace) mg/dL Urine Glucose (UA) (Negative) mg/dL Urine Ketones (Negative) mg/dL Urine Blood (Negative) Urine Nitrite (Negative) Ur Leukocyte Esterase (Negative) Urine Opiates Screen (Not Detect) Urine Fentanyl Screen (Not Detect) Ur Barbiturates Screen (Not Detect) Valproic Acid 44.8 L (50.0-100.0) mcg/mL Ur Phencyclidine Scrn (Not Detect) Ur Amphetamines Screen (Not Detect) U Benzodiazepines Scrn (Not Detect) Urine Cocaine Screen (Not Detect) U Marijuana (THC) Screen (Not Detect) Ethyl Alcohol < 10 mg/dL 11/02/22 11/02/22 Range/Units 23:40 23:40 WBC (4.8-10.8) X10*3/uL RBC (4.20-5.50) X10*6/uL Hgb (12.0-16.0) g/dl Hct (37.0-47.0) % MCV (80.0-98.0) fL MCH (27.0-33.0) pg MCHC (31.0-35.0) g/dl RDW (11.0-16.0) % Plt Count (160-400) X10*3/uL MPV (9.4-12.3) fL Immature Gran % (Auto) (0.0-0.4) % Neut % (Auto) (45-73) % Lymph % (Auto) (20-40) % Sabine % (Auto) (2-11) % Eos % (Auto) (0-4) % Baso % (Auto) (0-2) % Lymph # (Auto) (1.2-4.9) X10*3/uL Sabine # (Auto) (0.1-1.2) X10*3/uL Eos # (Auto) (0.0-0.4) X10*3/uL Baso # (Auto) (0.0-0.2) X10*3/uL Abs Immat Gran (auto) (0.00-0.03) X10*3/uL Absolute Neuts (auto) (2.0-8.3) x10*3/uL Absolute Nucleated RBC (0.0-0.012) X10*3/uL Nucleated RBC % (auto) (0.0-0.2) /100WBC Sodium (135-145) mmol/L Potassium (3.3-5.1) mmol/L Chloride (96-108) mmol/L Carbon Dioxide (22-29) mmol/L Anion Gap (12-20) BUN (9-16) mg/dL Creatinine (0.5-1.4) mg/dL Estim Creat Clear Calc Estimated GFR Random Glucose (60-115) mg/dL Calcium (8.4-10.2) mg/dL Magnesium (1.6-2.6) mg/dL Total Bilirubin (0.0-1.0) mg/dL Direct Bilirubin (0.0-0.5) mg/dL AST (5-31) U/L ALT (0-31) U/L Alkaline Phosphatase (39-117) U/L Total Protein (6.5-8.0) g/dL Albumin (3.5-5.0) g/dL Urine Color Yellow Urine Appearance Clear Urine pH 8.0 (5.0-9.0) Ur Specific [employer] <= 1.005 (1.005-1.025) Urine Protein Negative (Neg-Trace) mg/dL Urine Glucose (UA) Negative (Negative) mg/dL Urine Ketones Negative (Negative) mg/dL Urine Blood Negative (Negative) Urine Nitrite Negative (Negative) Ur Leukocyte Esterase Negative (Negative) Urine Opiates Screen Not Detected (Not Detect) Urine Fentanyl Screen Not Detected (Not Detect) Ur Barbiturates Screen Not Detected (Not Detect) Valproic Acid (50.0-100.0) mcg/mL Ur Phencyclidine Scrn Not Detected (Not Detect) Ur Amphetamines Screen Not Detected (Not Detect) U Benzodiazepines Scrn Not Detected (Not Detect) Urine Cocaine Screen Not Detected (Not Detect) U Marijuana (THC) Screen POSITIVE H (Not Detect) Ethyl Alcohol mg/dL Discharge Plan Discharge Clinical Impression: Bipolar 1 disorder, Depression Patient Disposition: Home, Self-Care Instructions: Depression (ED) Prescriptions: No Action clonidine HCl 0.1 mg tablet 0.1 mg PO BID PRN (Reason: Anxiety) mirtazapine 15 mg tablet 15 mg PO BEDTIME perphenazine 4 mg tablet 6 mg PO BEDTIME PRN (Reason: anxiety/agitation) nicotine (polacrilex) 2 mg Gum 4 mg buccal Q2H PRN (Reason: nicotine cravings) 30 Days Qty: 110 0RF divalproex 500 mg Tablet Extended Release 24 Hr 1,500 mg PO BEDTIME 30 Days Qty: 90 0RF perphenazine 4 mg Tablet 4 mg PO BID@0900,1500 30 Days Qty: 60 0RF trazodone 100 mg tablet 100 mg PO BEDTIME PRN (Reason: insomnia) 30 Days Qty: 30 0RF Referrals: Physician,Unknown J [Primary Care Provider] - 5 days Interventions: [place]-Suicide Risk Severity Scale Last Done: 11/03/22 12:00
--- OUTSIDE RECORDS SUMMARY | 2022-11-02 20:55 | XMS_ITS | Continuity of Care Document ---
Author Name Unknown Organization [facility] Address [address] [place] [id number]- Care Team Providers Care International Trade Analyst Name Role Phone Not on Staff, PCP Primary Care Physician Unavail able Encounter [facility] [place] Date(s): 04/16/22 - 04/17/[address] [address]- Discharge Disposition: Transfer to [facility] Facility Attending Physician: Merced Henriquez MD Admitting Physician: Merced Henriquez MD Referring Physician: Not on Staff, Referring MD Allergies, Adverse Reactions, Alerts Substance Reaction Severity Status Haldol Active Invega Active Medications Lamictal Tablet By Mouth, 2 times a day, Refills 0, Maintenance, 10/21/16 19:12:21 Start Date: 10/21/16 Status: Ordered Vital Signs Most recent to oldest [Reference Range]: 1 2 3 Oxygen Saturation [94-100 %] 99 % (04/17/22 6:24 AM) 98 % (04/16/22 9:39 PM) 100 % (04/16/22 2:55 PM) Pulse Rate [55-90 bpm] 61 bpm (04/17/22 6:24 AM) 65 bpm (04/16/22 9:39 PM) 70 bpm (04/16/22 2:55 PM) Blood Pressure [90-138/55-84 mm Hg] 97/48mm Hg (04/17/22 6:24 AM) 98/58mm Hg (04/16/22 9:39 PM) 100/61mm Hg (04/16/22 2:55 PM) Respiratory Rate [16-30 br/min] 16 br/min (04/17/22 6:24 AM) 18 br/min (04/16/22 9:39 PM) 16 br/min (04/16/22 2:55 PM) Temperature [96.8-100.4 DegF] 97.9 DegF (04/17/22 6:24 AM) 98.8 DegF (04/16/22 9:39 PM) 98.8 DegF (04/16/22 2:55 PM) Mode of Delivery (Oxygen) Room air (04/17/22 6:24 AM) Room air (04/16/22 9:39 PM) Room air (04/16/22 2:55 PM) Blood pressure sites Arm, right (04/17/22 6:24 AM) Arm, left (04/16/22 9:39 PM) Temperature Route Oral (04/17/22 6:24 AM) Oral (04/16/22 9:39 PM) Oral (04/16/22 2:55 PM) Patient Care team information Care Team Personnel Name: Not on Staff, PCP Position: [facility] Physician (General Medicine) Member Role: PCP Name: *[facility], ED Attending Position: [facility] ED Attendings Patient Name: Agata Spencer RN Position: [facility] ED RN W/OE and Tasks Member Role: Patient Care Provider Name: Merced Henriquez MD Position: [facility] Resident Member Role: Admitting Physician Address: Address: [address] [place] [address] Emergency [place], [place] [address]
--- NOTE | 2022-11-02 21:32 | PHA.MEDREC ---
Pharmacy Consult ? Medication Reconciliation Pharmacy has reviewed the medication reconciliation completed by Adriano. Patient reported all doses to Adriano. Patient did report she is not taking lamotrigine. Sonia Castro, PharmD
[2022-11-02 21:51] LABS: MANUAL DIFF FLAG NO
[2022-11-02 21:54] LABS: Basophils Percent Auto 0.3 % (0-2); Eosinophils Percent Auto 0.5 % (0-4); Hematocrit 35.8 % (37.0-47.0); Hemoglobin 12.3 g/dl (12.0-16.0); Imm Gran Abs Auto 0.02 X10*3/uL (0.00-0.03); Imm Gran Pct Auto 0.3 % (0.0-0.4); Lymphocytes Absolute Auto 3.2 X10*3/uL (1.2-4.9); Lymphocytes Percent Auto 48.9 % (20-40); Mean Corpuscular HGB Conc 34.4 g/dl (31.0-35.0); Mean Corpuscular Hemoglobin 30.8 pg (27.0-33.0); Mean Corpuscular Volume 89.7 fL (80.0-98.0); Mean Platelet Volume 10.1 fL (9.4-12.3); Monocytes Absolute Auto 0.4 X10*3/uL (0.1-1.2); Monocytes Percent Auto 6.2 % (2-11); Neutrophils Absolute Auto 2.9 x10*3/uL (2.0-8.3); Neutrophils Percent Auto 43.8 % (45-73); Platelet Count 192 X10*3/uL (160-400); Red Blood Count 3.99 X10*6/uL (4.20-5.50); Red Cell Distribution Width 11.4 % (11.0-16.0); White Blood Count 6.6 X10*3/uL (4.8-10.8)
[2022-11-02 22:14] LABS: Valproate 44.8 mcg/mL (50.0-100.0)
[2022-11-02 22:16] LABS: Alanine Aminotransferase 6 U/L (0-31); Albumin Level 4.1 g/dL (3.5-5.0); Alkaline Phosphatase 47 U/L (39-117); Anion Gap 13 (12-20); Aspartate Amino Transferase 16 U/L (5-31); Bilirubin Direct 0.2 mg/dL (0.0-0.5); Bilirubin Total 0.5 mg/dL (0.0-1.0); Blood Urea Nitrogen 4 mg/dL (9-16); Calcium 9.5 mg/dL (8.4-10.2); Carbon Dioxide 25 mmol/L (22-29); Chloride 103 mmol/L (96-108); Creatinine Clr Calc Pharmacy 115.9; Estimated Glomerular Filt Rate > 60; Ethanol < 10 mg/dL; Glucose Random 119 mg/dL (60-115); Magnesium 1.8 mg/dL (1.6-2.6); Potassium 3.5 mmol/L (3.3-5.1); Sodium 137 mmol/L (135-145); Total Protein 6.9 g/dL (6.5-8.0)
[2022-11-02 23:49] LABS: Appearance Urine Clear; Color Urine Yellow; Glucose Urine UA Negative (Negative); Leukocyte Esterase Urine Negative (Negative); Nitrite Urine Negative (Negative); Specific Gravity - Urine <= 1.005 (1.005-1.025); Urine Blood Negative (Negative); Urine Ketones Negative (Negative); Urine Protein Negative (Neg-Trace)
[2022-11-02] MEDS: Mirtazapine 15 MG TABLET PO (23:56)
[2022-11-02] MEDS: traZODone HCL 100 MG TABLET PO (23:57)
[2022-11-02] MEDS: Ibuprofen 600 MG TABLET PO (23:57)
[2022-11-02] MEDS: cloNIDine HCL 0.1 MG TABLET PO (23:57)
[2022-11-02] MEDS: Divalproex Sodium ER 500 MG TAB.ER.24H 1500 MG PO (23:57)
[2022-11-03 00:04] LABS: Amphetamine Screen Urine Not Detected (Not Detect); Barbiturates, Urine Not Detected (Not Detect); Benzodiazepines Screen Urine Not Detected (Not Detect); Cannabinoid Screen Urine POSITIVE (Not Detect); Cocaine Screen Urine Not Detected (Not Detect); Fentanyl, urine Not Detected (Not Detect); Opiate Screen Urine Not Detected (Not Detect); Phencyclidine Screen Urine Not Detected (Not Detect)
[2022-11-03 00:05] VITALS: BP 106/57; PULSE 81; RESP 19; TEMP 36.3; O2SAT 99
--- NOTE | 2022-11-03 04:57 | PC.NURSE ---
Patient slept through the night, no distress observed/reported, med rec completed/ medication compliant, VSS, care consult ordered/pending evaluation, behavior non concerning, labs completed/resulted, will continue to monitor.
--- NOTE | 2022-11-03 10:05 | PC.NURSE ---
Physician Obs. status ordered
[2022-11-03] MEDS: Perphenazine 4 MG TABLET PO (10:13)
== END 2022-11-03 13:43 | disposition home or self-care (01) ==
PROVIDERS: Physician Assistant; Emergency Provider Internal Medicine
DX: F31.9 Bipolar disorder, unspecified (principal); F17.210 Nicotine dependence, cigarettes, uncomplicated; F12.90 Cannabis use, unspecified, uncomplicated; F41.9 Anxiety disorder, unspecified; F43.12 Post-traumatic stress disorder, chronic; F50.9 Eating disorder, unspecified; Z68.25 Body mass index [BMI] 25.0-25.9, adult; Z79.899 Other long term (current) drug therapy
CPT/HCPCS: 36415; 80048; 80076; 80164; 80307; 81003; 83735; 85025; 99284; S9485

== ENCOUNTER 2022-11-11 23:28 | Inpatient (IN) | payer OTHER, MEDICAID, SELFPAY ==
[2022-11-11 23:39] VITALS: BP 110/57; RESP 16; TEMP 36.8; O2SAT 98; BMI 22.8
--- NOTE | 2022-11-12 00:05 | ED.PSYCH ---
HPI - Psych General Chief Complaint: Psychiatric Symptoms Stated Complaint: psych Time Seen by Provider: 11/11/22 23:47 Source: patient Mode of arrival: EMS Limitations: other (Todd) History of Present Illness HPI Narrative: 22-year-old female bipolar disorder, PTSD, manic behavior, paranoid delusion who was recently hospitalized on our psychiatric service from 10/25/2022 until 10/29/2022 for manic episode with delusional thinking. The patient states she has not been compliant with her medications since leaving the hospital. After states she lives with her mother and mother was concerned that she was not doing well. The patient was brought to the emergency department by her mother. The patient does have very pressured speech with flight of ideas.She denies suicidal or homicidal ideation. Related Data Previous Rx's Medication Instructions Recorded nicotine (polacrilex) 2 mg gum 4 mg buccal Q2H PRN nicotine 10/29/22 cravings 30 days #110 ea aripiprazole 10 mg tablet 10 mg PO DAILY 14 days #14 tabs 11/17/22 aripiprazole 400 mg intramuscular 400 mg IM QMONTH 30 days #1 ea 11/17/22 suspension,extended release (Abilify Maintena) clonidine HCl 0.1 mg tablet 0.1 mg PO QID PRN Anxiety 30 days 11/17/22 #90 tabs divalproex 500 mg tablet,extended 1,500 mg PO BEDTIME 30 days #90 11/17/22 release 24 hr tabs perphenazine 4 mg tablet 4 mg PO BID PRN agitation 30 days 11/17/22 #30 tabs perphenazine 4 mg tablet 4 mg PO BID@0900,1500 30 days #60 11/17/22 tabs trazodone 100 mg tablet 100 mg PO BEDTIME PRN insomnia 30 11/17/22 days #30 tabs Allergies Allergy/AdvReac Type Severity Reaction Status Date / Time insect venom [MOSQUITO] Allergy Unknown UNKNOWN Verified 03/09/22 18:01 paliperidone [From INVEGA] Allergy Unknown DYSTONIC Verified 03/09/22 18:01 REACTION haloperidol [HALOPERIDOL] AdvReac Intermediate Dystonic Verified 03/09/22 18:01 reaction Review of Systems Review of Systems: Yes all other systems are reviewed and are negative PMFSH Past Medical History [facility] Narrative: Social history: The patient does smoke cigarettes. She states she occasionally drinks alcohol. She denies drug use. Medical History Anxiety Bipolar 1 disorder Bipolar disorder Depression Social History Social History Household Members: Friend(s) Household Members Other:: Resides at [facility] currently Housing: Apartment Do you presently have visiting nurse or other home services: No Alcohol intake: never Patient Tobacco Use Status: Current everyday Tobacco user Tobacco use type: Cigarette Cigarettes Per Day: 7 Years Smoked: 2 years e-Cigarette/Vaping Use: Former Use Second Hand Smoke Exposure: No Substance Use Type: Marijuana service: No Sexual orientation: Don't Know Physical Exam Vital Signs: Vital Signs: Last Vital Signs Temp 97.9 F 11/17/22 08:00 Pulse 72 11/17/22 08:00 Resp 16 11/17/22 08:00 BP 102/62 11/17/22 08:00 Pulse Ox 98 11/17/22 08:00 O2 Del Method Room Air 11/17/22 08:00 BMI result Body Mass Index 22.8 Const: Other: Awake, alert, female patient, pressured speech, appears manic Orientation/consciousness: oriented to person and oriented to place HEENT: Head: Yes normal to inspection, Yes normocephalic and Yes atraumatic Ears: external ears normal General nose exam: Normal external nose present Face and sinus: Yes normal facial exam Mouth: Normal oral and palatal mucosa present Throat: Yes posterior oropharynx normal Eyes: General: appearance normal, both eyes and all related structures Pupils: Equal, round and reactive pupils present Neck: Neck: Yes normal visual inspection, Yes no lymphadenopathy, Yes trachea midline and Yes supple Chest: Chest palpation & inspection: normal inspection of the chest and normal palpation of entire chest wall Resp: Effort & Inspection: normal respiratory effort and able to speak in complete sentences Auscultation: clear to auscultation bilaterally Cardio: Rate: regular rate Rhythm: regular rhythm Heart sounds: S1 normal heart sound present, S2 normal heart sound present and no murmurs GI: Inspection: Yes normal to inspection Palpation (GI): Soft to palpation, nontender and no guarding Auscultation: normal bowel sounds : General: Yes no CVA tenderness Back/Spine/Pelvis: Back: no CVA tenderness Skin: General skin exam: no rashes or lesions noted Neuro: General: oriented to person and oriented to place Cranial nerves: Yes CN's II-XII intact bilaterally and Yes Equal, round and reactive pupils present Cognition (Neuro): normal cognition Motor exam (neuro): 5/5 motor strength present throughout Extrem: General: Yes normal to inspection Psych: Appearance: grossly normal Speech and movement: Pressured speech present Affect: Animated affect present Attitude: cooperative Thought content: suicidality and no homicidality Medications Administered Discontinued Medications Generic Name Dose Route Start Last Admin Trade Name Freq PRN Reason Stop Dose Admin Acetaminophen 650 mg 11/12/22 20:52 11/17/22 05:14 Acetaminophen 325 Mg Tablet PO 650 mg Q6H PRN Administration Headache/Pain Mild Scale (1-3) Aripiprazole 10 mg 11/16/22 14:30 11/16/22 14:47 Aripiprazole 10 Mg Tablet PO 11/16/22 14:31 10 mg ONCE ONE Administration Aripiprazole 10 mg 11/17/22 09:00 11/17/22 08:06 Aripiprazole 10 Mg Tablet PO 10 mg DAILY GAVIOTA Administration Clonidine HCl 0.1 mg 11/12/22 00:05 11/15/22 23:26 Clonidine Hcl 0.1 Mg Tablet PO 0.1 mg BID PRN Administration Anxiety Protocol Clonidine HCl 0.1 mg 11/12/22 20:52 11/16/22 06:18 Clonidine Hcl 0.1 Mg Tablet PO 0.1 mg Q4H PRN Administration anxiety Protocol Divalproex Sodium 1,500 mg 11/12/22 00:15 11/13/22 20:35 Divalproex Sodium Er 500 Mg Tab.Er.24h PO 1,500 mg BEDTIME GAVIOTA Administration Divalproex Sodium 2,000 mg 11/14/22 21:00 11/16/22 22:31 Divalproex Sodium Er 500 Mg Tab.Er.24h PO 2,000 mg BEDTIME GAVIOTA Administration Lorazepam 2 mg 11/12/22 19:56 11/12/22 20:04 Lorazepam 1 Mg Tablet PO 11/12/22 19:57 2 mg ONCE ONE Administration Lorazepam 0.5 mg 11/13/22 13:10 11/14/22 03:59 Lorazepam 0.5 Mg Tablet PO 0.5 mg DAILY PRN Administration Anxiety Lorazepam 0.5 mg 11/14/22 10:53 11/16/22 11:55 Lorazepam 0.5 Mg Tablet PO 0.5 mg QID PRN Administration Anxiety Mirtazapine 15 mg 11/12/22 00:15 11/12/22 20:15 Mirtazapine 15 Mg Tablet PO 15 mg BEDTIME GAVIOTA Administration Nicotine Polacrilex 4 mg 11/12/22 00:05 11/17/22 05:16 Nicotine Polacrilex 2 Mg Gum BUCCAL 4 mg Q2H PRN Administration nicotine cravings Nicotine Polacrilex 4 mg 11/12/22 20:52 11/13/22 23:05 Nicotine Polacrilex 2 Mg Gum BUCCAL 4 mg Q2H PRN Administration Nicotine Cravings Perphenazine 4 mg 11/12/22 09:00 11/14/22 08:33 Perphenazine 4 Mg Tablet PO 4 mg BID@0900,1500 GAVIOTA Administration Perphenazine 6 mg 11/12/22 00:05 11/12/22 00:57 Perphenazine 2 Mg Tablet PO 6 mg BEDTIME PRN Administration anxiety/agitation Perphenazine 4 mg 11/12/22 20:52 11/15/22 23:26 Perphenazine 4 Mg Tablet PO 4 mg BID PRN Administration agitation Perphenazine 6 mg 11/14/22 15:00 11/17/22 08:06 Perphenazine 2 Mg Tablet PO 6 mg BID@0900,1500 GAVIOTA Administration Trazodone HCl 100 mg 11/12/22 00:05 11/16/22 22:38 Trazodone Hcl 100 Mg Tablet PO 100 mg BEDTIME PRN Administration insomnia Medical Decision Making Medical Decision Making MDM Narrative: 22-year-old female bipolar disorder, PTSD, manic behavior, paranoid delusion, anorexia who was brought to emergency department by her mother for evaluation of todd and noncompliance with the medications. Patient does have pressured speech and does appear to be manic. She is cooperative. I ordered a drug screen urine, urinalysis, urine test, ethanol level, Depakote level. Patient was recently here on the psychiatric service and her medications were reconciled and I ordered these medications to be given this evening . 0018: Start physician observation The patient kept in the emergency department [facility] until she can be evaluated by the care team or until her symptoms improve. Differential Diagnosis Differential Diagnoses: The differential diagnosis associated with the presentation includes Differential diagnosis includes was not limited to bipolar disorder decompensation, todd, electrolyte abnormality, polysubstance use Admission/Observation Consideration of admission/observation: Escalation of care including admission/observation considered Lab Data 11/12/22 14:21 11/12/22 00:29 Labs: Lab Results 11/12/22 11/12/22 11/12/22 Range/Units 00:20 00:20 00:20 WBC (4.8-10.8) X10*3/uL RBC (4.20-5.50) X10*6/uL Hgb (12.0-16.0) g/dl Hct (37.0-47.0) % MCV (80.0-98.0) fL MCH (27.0-33.0) pg MCHC (31.0-35.0) g/dl RDW (11.0-16.0) % Plt Count (160-400) X10*3/uL MPV (9.4-12.3) fL Immature Gran % (Auto) (0.0-0.4) % Neut % (Auto) (45-73) % Lymph % (Auto) (20-40) % Schleicher % (Auto) (2-11) % Eos % (Auto) (0-4) % Baso % (Auto) (0-2) % Lymph # (Auto) (1.2-4.9) X10*3/uL Schleicher # (Auto) (0.1-1.2) X10*3/uL Eos # (Auto) (0.0-0.4) X10*3/uL Baso # (Auto) (0.0-0.2) X10*3/uL Abs Immat Gran (auto) (0.00-0.03) X10*3/uL Absolute Neuts (auto) (2.0-8.3) x10*3/uL Absolute Nucleated RBC (0.0-0.012) X10*3/uL Nucleated RBC % (auto) (0.0-0.2) /100WBC Sodium (135-145) mmol/L Potassium (3.3-5.1) mmol/L Chloride (96-108) mmol/L Carbon Dioxide (22-29) mmol/L Anion Gap (12-20) BUN (9-16) mg/dL Creatinine (0.5-1.4) mg/dL Estim Creat Clear Calc Estimated GFR Random Glucose (60-115) mg/dL Calcium (8.4-10.2) mg/dL Total Bilirubin (0.0-1.0) mg/dL AST (5-31) U/L ALT (0-31) U/L Alkaline Phosphatase (39-117) U/L Total Protein (6.5-8.0) g/dL Albumin (3.5-5.0) g/dL Urine Color Yellow Urine Appearance Clear Urine pH 6.5 (5.0-9.0) Ur Specific [place] <= 1.005 (1.005-1.025) Urine Protein Negative (Neg-Trace) mg/dL Urine Glucose (UA) Negative (Negative) mg/dL Urine Ketones Negative (Negative) mg/dL Urine Blood Negative (Negative) Urine Nitrite Negative (Negative) Ur Leukocyte Esterase Negative (Negative) Urine Test NEGATIVE (NEGATIVE) Urine Opiates Screen Not Detected (Not Detect) Urine Fentanyl Screen Not Detected (Not Detect) Ur Barbiturates Screen Not Detected (Not Detect) Valproic Acid (50.0-100.0) mcg/mL Ur Phencyclidine Scrn Not Detected (Not Detect) Ur Amphetamines Screen Not Detected (Not Detect) U Benzodiazepines Scrn Not Detected (Not Detect) Urine Cocaine Screen Not Detected (Not Detect) U Marijuana (THC) Screen POSITIVE H (Not Detect) Ethyl Alcohol mg/dL COVID-19 (SIENNA) (Negative) COVID-19 Clin Com 11/12/22 11/12/22 11/12/22 Range/Units 00:29 00:29 14:21 WBC 5.7 (4.8-10.8) X10*3/uL RBC 4.60 (4.20-5.50) X10*6/uL Hgb 14.1 (12.0-16.0) g/dl Hct 41.8 (37.0-47.0) % MCV 90.9 (80.0-98.0) fL MCH 30.7 (27.0-33.0) pg MCHC 33.7 (31.0-35.0) g/dl RDW 11.9 (11.0-16.0) % Plt Count 227 (160-400) X10*3/uL MPV 10.0 (9.4-12.3) fL Immature Gran % (Auto) 0.2 (0.0-0.4) % Neut % (Auto) 36.9 L (45-73) % Lymph % (Auto) 52.4 H (20-40) % Schleicher % (Auto) 9.2 (2-11) % Eos % (Auto) 1.0 (0-4) % Baso % (Auto) 0.3 (0-2) % Lymph # (Auto) 3.0 (1.2-4.9) X10*3/uL Schleicher # (Auto) 0.5 (0.1-1.2) X10*3/uL Eos # (Auto) 0.1 (0.0-0.4) X10*3/uL Baso # (Auto) 0.0 (0.0-0.2) X10*3/uL Abs Immat Gran (auto) 0.01 (0.00-0.03) X10*3/uL Absolute Neuts (auto) 2.1 (2.0-8.3) x10*3/uL Absolute Nucleated RBC 0.000 (0.0-0.012) X10*3/uL Nucleated RBC % (auto) 0.0 (0.0-0.2) /100WBC Sodium 139 (135-145) mmol/L Potassium 4.4 D (3.3-5.1) mmol/L Chloride 107 (96-108) mmol/L Carbon Dioxide 23 (22-29) mmol/L Anion Gap 13 (12-20) BUN 6 L (9-16) mg/dL Creatinine 0.68 (0.5-1.4) mg/dL Estim Creat Clear Calc 126.1 Estimated GFR > 60 Random Glucose 82 (60-115) mg/dL Calcium 10.1 D (8.4-10.2) mg/dL Total Bilirubin 0.4 (0.0-1.0) mg/dL AST 17 (5-31) U/L ALT 7 (0-31) U/L Alkaline Phosphatase 42 (39-117) U/L Total Protein 7.1 (6.5-8.0) g/dL Albumin 4.2 (3.5-5.0) g/dL Urine Color Urine Appearance Urine pH (5.0-9.0) Ur Specific [place] (1.005-1.025) Urine Protein (Neg-Trace) mg/dL Urine Glucose (UA) (Negative) mg/dL Urine Ketones (Negative) mg/dL Urine Blood (Negative) Urine Nitrite (Negative) Ur Leukocyte Esterase (Negative) Urine Test (NEGATIVE) Urine Opiates Screen (Not Detect) Urine Fentanyl Screen (Not Detect) Ur Barbiturates Screen (Not Detect) Valproic Acid 19.1 L (50.0-100.0) mcg/mL Ur Phencyclidine Scrn (Not Detect) Ur Amphetamines Screen (Not Detect) U Benzodiazepines Scrn (Not Detect) Urine Cocaine Screen (Not Detect) U Marijuana (THC) Screen (Not Detect) Ethyl Alcohol < 10 mg/dL COVID-19 (SIENNA) (Negative) COVID-19 Clin Com 11/12/22 Range/Units 15:40 WBC (4.8-10.8) X10*3/uL RBC (4.20-5.50) X10*6/uL Hgb (12.0-16.0) g/dl Hct (37.0-47.0) % MCV (80.0-98.0) fL MCH (27.0-33.0) pg MCHC (31.0-35.0) g/dl RDW (11.0-16.0) % Plt Count (160-400) X10*3/uL MPV (9.4-12.3) fL Immature Gran % (Auto) (0.0-0.4) % Neut % (Auto) (45-73) % Lymph % (Auto) (20-40) % Schleicher % (Auto) (2-11) % Eos % (Auto) (0-4) % Baso % (Auto) (0-2) % Lymph # (Auto) (1.2-4.9) X10*3/uL Schleicher # (Auto) (0.1-1.2) X10*3/uL Eos # (Auto) (0.0-0.4) X10*3/uL Baso # (Auto) (0.0-0.2) X10*3/uL Abs Immat Gran (auto) (0.00-0.03) X10*3/uL Absolute Neuts (auto) (2.0-8.3) x10*3/uL Absolute Nucleated RBC (0.0-0.012) X10*3/uL Nucleated RBC % (auto) (0.0-0.2) /100WBC Sodium (135-145) mmol/L Potassium (3.3-5.1) mmol/L Chloride (96-108) mmol/L Carbon Dioxide (22-29) mmol/L Anion Gap (12-20) BUN (9-16) mg/dL Creatinine (0.5-1.4) mg/dL Estim Creat Clear Calc Estimated GFR Random Glucose (60-115) mg/dL Calcium (8.4-10.2) mg/dL Total Bilirubin (0.0-1.0) mg/dL AST (5-31) U/L ALT (0-31) U/L Alkaline Phosphatase (39-117) U/L Total Protein (6.5-8.0) g/dL Albumin (3.5-5.0) g/dL Urine Color Urine Appearance Urine pH (5.0-9.0) Ur Specific [place] (1.005-1.025) Urine Protein (Neg-Trace) mg/dL Urine Glucose (UA) (Negative) mg/dL Urine Ketones (Negative) mg/dL Urine Blood (Negative) Urine Nitrite (Negative) Ur Leukocyte Esterase (Negative) Urine Test (NEGATIVE) Urine Opiates Screen (Not Detect) Urine Fentanyl Screen (Not Detect) Ur Barbiturates Screen (Not Detect) Valproic Acid (50.0-100.0) mcg/mL Ur Phencyclidine Scrn (Not Detect) Ur Amphetamines Screen (Not Detect) U Benzodiazepines Scrn (Not Detect) Urine Cocaine Screen (Not Detect) U Marijuana (THC) Screen (Not Detect) Ethyl Alcohol mg/dL COVID-19 (SIENNA) Negative (Negative) COVID-19 Clin Com See Note Chronic Conditions Patient?s care impacted by: Other (Bipolar disorder) Discharge Plan Discharge Clinical Impression: Bipolar 1 disorder Patient Disposition: Admitted As Inpatient Interventions: Admission Worksheet (ED) Last Done: 11/12/22 20:22 Discharge Date/Time: 11/12/22 20:23
[2022-11-12] MEDS: traZODone HCL 100 MG TABLET PO ×2 (00:39→20:15)
[2022-11-12 00:46] LABS: Ethanol < 10 mg/dL
[2022-11-12 00:49] LABS: Valproate 19.1 mcg/mL (50.0-100.0)
--- NOTE | 2022-11-12 06:04 | PC.NURSE ---
Patient slept through the night, no distress observed/reported, medication complaint, care team pending evaluation, VSS, behavior non concerning, will continue to monitor.
--- NOTE | 2022-11-12 09:34 | PC.NURSE ---
refusing labs at this time
--- NOTE | 2022-11-12 09:35 | MHC.EDTECH ---
PT refused blood draw. swearing at staff
[2022-11-12 09:53] LABS: Alanine Aminotransferase 7 U/L (0-31); Albumin Level 4.2 g/dL (3.5-5.0); Alkaline Phosphatase 42 U/L (39-117); Anion Gap 13 (12-20); Aspartate Amino Transferase 17 U/L (5-31); Bilirubin Total 0.4 mg/dL (0.0-1.0); Blood Urea Nitrogen 6 mg/dL (9-16); Calcium 10.1 mg/dL (8.4-10.2); Carbon Dioxide 23 mmol/L (22-29); Chloride 107 mmol/L (96-108); Creatinine Clr Calc Pharmacy 126.1; Estimated Glomerular Filt Rate > 60; Glucose Random 82 mg/dL (60-115); Potassium 4.4 mmol/L (3.3-5.1); Sodium 139 mmol/L (135-145); Total Protein 7.1 g/dL (6.5-8.0)
--- NOTE | 2022-11-12 13:45 | MHC.CARE ---
patient seen by CARE team, she is pending placement on inpatient psychiatric unit for mood stabilization in light of medication non compliance.
--- NOTE | 2022-11-12 19:45 | PC.NURSE ---
Patient accepted to [facility], bed status admitted, per billing department supervisor patient can not be transferred during evening shift due to increased floor acuity, patient will be tentatively go on third shift, patient is not happy with news, demanded immediate discharge, staff member able to de-escalate, currently calm but may escalate, will continue to monitor.
[2022-11-12 20:01] VITALS: BP 102/50; PULSE 74; RESP 20; TEMP 36.2; O2SAT 100
[2022-11-12] MEDS: Nicotine Polacrilex 2 MG GUM 4 MG BUCCAL (20:15)
--- NOTE | 2022-11-12 21:16 | PC.ADMIT ---
pt is a 22 year old female who presented to [facility] with todd with rapid cycling. pt tox was positive for THC. pt has not been in med noncompliant and has decompensated. pt has PMH of bipolar and inpatient hospitalizations. during admission, pt was manic, but signed all legals. pt has CV. start treatment plan and promote safety.
--- NOTE | 2022-11-12 21:22 | PC.NURSE ---
pt signed a three day on 11/12/22. three day up 11/17/22. notified
[2022-11-13 07:55] VITALS: BP 97/58; PULSE 82; RESP 14; TEMP 36.2; O2SAT 98
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
[2022-11-13] MEDS: Nicotine Polacrilex 2 MG GUM 4 MG BUCCAL ×5 (12:08→23:05)
[2022-11-13] MEDS: cloNIDine HCL 0.1 MG TABLET PO (15:38)
[2022-11-13] MEDS: traZODone HCL 100 MG TABLET PO (23:04)
[2022-11-14] MEDS: Nicotine Polacrilex 2 MG GUM 4 MG BUCCAL ×5 (04:00→22:31)
[2022-11-14 08:30] VITALS: BP 100/61; PULSE 100; RESP 16; TEMP 36.1; O2SAT 100
--- NOTE | 2022-11-14 10:08 | HO.PSYCHPN ---
Subjective Subjective Date of Service: 11/14/22 Reason For Visit: Manic Subjective Notes: 3 Day Healthcare Proxy: No Guardianship: No Medical Problems Affecting Mental Status: No Interim History: Pt initially engaged with provider then escalated quickly around expecting me to discharge her today and that weekends didn't count re : 3 day . Pt before escalation had asked for in lorazepam dose Medication Compliance: Yes Side effects from medications: No Attending Groups: Intermittent Review of Systems Acute medical concerns: No Medical Review of Systems: unchanged Mental Status Exam Mental Status Exam Narrative: crew cut, Patient Appearance: Well Grooomed Patient Orientation: Person, Place, Time and Situation Level of Consciousness: Awake Patient Behavior: Talkative and Belligerent Behavior Comments: slammed door after I left when pt escalated around the issues of wanting immediate dc Mood Description: Labile Affect Description: Labile Patient Cognition Impaired: No Ability to Follow Directions: Fair Speech Pattern: Rambling Hallucinations: None Delusions: Not Present Thought Process: Racing and Distracted Thought Content: positive for Disorganized Depressive Symptoms: Muscle Tension, Increased Irritability and Difficulty Sleeping Abnormal Motor Activity Signs and Symptoms: Agitation and Restlessness Judgement: Poor Diagnostics Vital Signs (24Hr): Vital Signs - 24 hr 11/14/22 08:30 Temperature 96.9 F Pulse Rate 100 Respiratory Rate 16 Blood Pressure 100/61 Pulse Oximetry 100 Oxygen Delivery Method Room Air BMI result Body Mass Index 22.8 Labs 11/12/22 14:21 11/12/22 00:29 Labs: Laboratory Results - last 48 hr 11/12/22 11/12/22 14:21 15:40 WBC 5.7 RBC 4.60 Hgb 14.1 Hct 41.8 MCV 90.9 MCH 30.7 MCHC 33.7 RDW 11.9 Plt Count 227 MPV 10.0 Immature Gran % (Auto) 0.2 Neut % (Auto) 36.9 L Lymph % (Auto) 52.4 H [place] % (Auto) 9.2 Eos % (Auto) 1.0 Baso % (Auto) 0.3 Lymph # (Auto) 3.0 [place] # (Auto) 0.5 Eos # (Auto) 0.1 Baso # (Auto) 0.0 Abs Immat Gran (auto) 0.01 Absolute Neuts (auto) 2.1 Absolute Nucleated RBC 0.000 Nucleated RBC % (auto) 0.0 COVID-19 (SIENNA) Negative COVID-19 Clin Com See Note Medications Medications Current Medications Acetaminophen (Acetaminophen 325 Mg Tablet) 650 mg PO Q6H PRN PRN Reason: Headache/Pain Mild Scale (1-3) Al Hydroxide/Mg Hydroxide (Magnesium Hydrox/Alum Hydrox 30 Ml Oral.Susp) 30 ml PO Q6H PRN PRN Reason: Heartburn/Nausea Clonidine HCl (Clonidine Hcl 0.1 Mg Tablet) 0.1 mg PO BID PRN; Protocol PRN Reason: Anxiety Last Admin: 11/13/22 15:38 Dose: 0.1 mg Clonidine HCl (Clonidine Hcl 0.1 Mg Tablet) 0.1 mg PO Q4H PRN; Protocol PRN Reason: anxiety Last Admin: 11/13/22 06:08 Dose: 0.1 mg Divalproex Sodium (Divalproex Sodium Er 500 Mg Tab.Er.24h) 1,500 mg PO BEDTIME [place] Last Admin: 11/13/22 20:35 Dose: 1,500 mg Lorazepam (Lorazepam 0.5 Mg Tablet) 0.5 mg PO DAILY PRN PRN Reason: Anxiety Last Admin: 11/14/22 03:59 Dose: 0.5 mg Magnesium Hydroxide (Milk Of Magnesia 30 Ml Oral.Susp) 30 ml PO DAILY PRN PRN Reason: Constipation Nicotine Polacrilex (Nicotine Polacrilex 2 Mg Gum) 4 mg BUCCAL Q2H PRN PRN Reason: nicotine cravings Last Admin: 11/14/22 08:33 Dose: 4 mg Nicotine Polacrilex (Nicotine Polacrilex 2 Mg Gum) 4 mg BUCCAL Q2H PRN PRN Reason: Nicotine Cravings Last Admin: 11/13/22 23:05 Dose: 4 mg Perphenazine (Perphenazine 4 Mg Tablet) 4 mg PO BID@0900,1500 [place] Last Admin: 11/14/22 08:33 Dose: 4 mg Perphenazine (Perphenazine 4 Mg Tablet) 4 mg PO BID PRN PRN Reason: agitation Last Admin: 11/13/22 19:38 Dose: 4 mg Trazodone HCl (Trazodone Hcl 100 Mg Tablet) 100 mg PO BEDTIME PRN PRN Reason: insomnia Last Admin: 11/13/22 23:04 Dose: 100 mg Allergies Allergies Allergy/AdvReac Type Severity Reaction Status Date / Time insect venom [MOSQUITO] Allergy Unknown UNKNOWN Verified 03/09/22 18:01 paliperidone [From INVEGA] Allergy Unknown DYSTONIC Verified 03/09/22 18:01 REACTION haloperidol [HALOPERIDOL] AdvReac Intermediate Dystonic Verified 03/09/22 18:01 reaction Assessment & Plan Assessment & Plan (1) Bipolar 1 disorder: Status: Acute Code(s): F31.9 - Bipolar disorder, unspecified Assessment and Plan: inc depakote, inc perphenazine a tad- as well as requested 3rd prn dose of ativan (2) Chronic post-traumatic stress disorder (PTSD): Status: Acute Code(s): F43.12 - Post-traumatic stress disorder, chronic Assessment and Plan: CTP Plan pt is a 22 yo female with hx of bipolar disorder, PTSD, recently discharged from on 10/29 who presents for manic behavior in face of medications non-adherence. Patient presents with manic behaviors, pressured rambling speech, paranoid delusions, some grandiosity, irritability, sometimes saying she wants to stay sometimes demanding to go and angry. Limited insight. Making suicidal comments like saying she wants to jump off a building. -patient frequently not adherent with medications post discharge; will try to see if there is a long-acting injectable patient would be willing to try Plan: BREA, agnes sign 3 day notice Q 15 minute checks Depakote ER 1500 mg q.h.s. Perphenazine 4 mg b.i.d. Perphenazine 4 mg p.r.n. Discontinued mirtazapine due to todd Patient educated on: medication risk/benefits and therapeutic strategies Informed Consent: further education needed Reason for continued inpatient stay Substantial Risk for: rapid decompensation Time Spent With Patient Time: Total time managing care of this patient today ____ minutes.
[2022-11-14] MEDS: cloNIDine HCL 0.1 MG TABLET PO (12:56)
[2022-11-14] MEDS: Perphenazine 2 MG TABLET 6 MG PO (17:03)
[2022-11-14 17:45] VITALS: BP 90/53; PULSE 95; TEMP 35.7
[2022-11-14] MEDS: Divalproex Sodium ER 500 MG TAB.ER.24H 2000 MG PO (21:02)
[2022-11-14] MEDS: traZODone HCL 100 MG TABLET PO (21:03)
[2022-11-14] MEDS: Acetaminophen 325 MG TABLET 650 MG PO (21:06)
[2022-11-15] MEDS: Nicotine Polacrilex 2 MG GUM 4 MG BUCCAL ×6 (01:37→22:04)
[2022-11-15 03:55] VITALS: BP 100/55
[2022-11-15] MEDS: Acetaminophen 325 MG TABLET 650 MG PO (04:55)
[2022-11-15 06:00] VITALS: BP 114/68; PULSE 110; RESP 16; TEMP 36.4; O2SAT 99
[2022-11-15] MEDS: Perphenazine 2 MG TABLET 6 MG PO ×2 (09:08→15:11)
--- NOTE | 2022-11-15 10:19 | HO.PSYCHPN ---
Subjective Subjective Date of Service: 11/15/22 Reason For Visit: Manic Subjective Notes: Conditional Voluntary Interim History: 22yo singing along to Brigette Mena- breaks off to talk to me, then stops to go back to sing important to her phrase- Pt reports they have been feeling better since interaction with me yesterday we discussed slight changes I made to their medication and pt is in agreement- has been in better control and seemed to have slept more Medication Compliance: Yes Review of Systems Medical Review of Systems: unchanged Mental Status Exam Mental Status Exam Patient Appearance: Bizarre (has shirt on inside out) Patient Orientation: Person, Place, Time and Situation Level of Consciousness: Awake Patient Behavior: Talkative, Cooperative, Restless and Impulsive Mood Description: Elated and Expansive Affect Description: Labile Patient Cognition Impaired: No Ability to Follow Directions: Fair Speech Pattern: Clear, Excessive and Loud Hallucinations: None Thought Process: Racing Thought Content: positive for Tangential Abnormal Motor Activity Signs and Symptoms: Hyperactivity Judgement: Fair Diagnostics Vital Signs (24Hr): Vital Signs - 24 hr 11/14/22 17:45 11/15/22 03:55 Temperature 96.3 F L Pulse Rate 95 Blood Pressure 90/53 L 100/55 L BMI result Body Mass Index 22.8 Labs 11/12/22 14:21 11/12/22 00:29 Medications Medications Current Medications Acetaminophen (Acetaminophen 325 Mg Tablet) 650 mg PO Q6H PRN PRN Reason: Headache/Pain Mild Scale (1-3) Last Admin: 11/15/22 04:55 Dose: 650 mg Al Hydroxide/Mg Hydroxide (Magnesium Hydrox/Alum Hydrox 30 Ml Oral.Susp) 30 ml PO Q6H PRN PRN Reason: Heartburn/Nausea Clonidine HCl (Clonidine Hcl 0.1 Mg Tablet) 0.1 mg PO BID PRN; Protocol PRN Reason: Anxiety Last Admin: 11/14/22 12:56 Dose: 0.1 mg Clonidine HCl (Clonidine Hcl 0.1 Mg Tablet) 0.1 mg PO Q4H PRN; Protocol PRN Reason: anxiety Last Admin: 11/13/22 06:08 Dose: 0.1 mg Divalproex Sodium (Divalproex Sodium Er 500 Mg Tab.Er.24h) 2,000 mg PO BEDTIME [place] Last Admin: 11/14/22 21:02 Dose: 2,000 mg Lorazepam (Lorazepam 0.5 Mg Tablet) 0.5 mg PO QID PRN PRN Reason: Anxiety Last Admin: 11/15/22 09:30 Dose: 0.5 mg Magnesium Hydroxide (Milk Of Magnesia 30 Ml Oral.Susp) 30 ml PO DAILY PRN PRN Reason: Constipation Nicotine Polacrilex (Nicotine Polacrilex 2 Mg Gum) 4 mg BUCCAL Q2H PRN PRN Reason: nicotine cravings Last Admin: 11/15/22 09:46 Dose: 4 mg Nicotine Polacrilex (Nicotine Polacrilex 2 Mg Gum) 4 mg BUCCAL Q2H PRN PRN Reason: Nicotine Cravings Last Admin: 11/13/22 23:05 Dose: 4 mg Perphenazine (Perphenazine 4 Mg Tablet) 4 mg PO BID PRN PRN Reason: agitation Last Admin: 11/14/22 10:33 Dose: 4 mg Perphenazine (Perphenazine 2 Mg Tablet) 6 mg PO BID@0900,1500 [place] Last Admin: 11/15/22 09:08 Dose: 6 mg Trazodone HCl (Trazodone Hcl 100 Mg Tablet) 100 mg PO BEDTIME PRN PRN Reason: insomnia Last Admin: 11/14/22 21:03 Dose: 100 mg Allergies Allergies Allergy/AdvReac Type Severity Reaction Status Date / Time insect venom [MOSQUITO] Allergy Unknown UNKNOWN Verified 03/09/22 18:01 paliperidone [From INVEGA] Allergy Unknown DYSTONIC Verified 03/09/22 18:01 REACTION haloperidol [HALOPERIDOL] AdvReac Intermediate Dystonic Verified 03/09/22 18:01 reaction Assessment & Plan Assessment & Plan (1) Bipolar 1 disorder: Status: Acute Code(s): F31.9 - Bipolar disorder, unspecified Assessment and Plan: inc depakote, inc perphenazine a tad- as well as requested 3rd prn dose of ativan (2) Chronic post-traumatic stress disorder (PTSD): Status: Acute Code(s): F43.12 - Post-traumatic stress disorder, chronic Assessment and Plan: CTP Plan pt is a 22 yo female with hx of bipolar disorder, PTSD, recently discharged from on 10/29 who presents for manic behavior in face of medications non-adherence. Patient presents with manic behaviors, pressured rambling speech, paranoid delusions, some grandiosity, irritability, sometimes saying she wants to stay sometimes demanding to go and angry. Limited insight. Making suicidal comments like saying she wants to jump off a building. -patient frequently not adherent with medications post discharge; will try to see if there is a long-acting injectable patient would be willing to try Plan: agnes GUIDRY sign 3 day notice Q 15 minute checks Depakote ER 1500 mg q.h.s. Perphenazine 4 mg b.i.d. Perphenazine 4 mg p.r.n. Discontinued mirtazapine due to todd Patient educated on: medication risk/benefits Informed Consent: understands Reason for continued inpatient stay Substantial Risk for: inability to function and rapid decompensation Time Spent With Patient Time: Total time managing care of this patient today ____ minutes.
[2022-11-15 16:05] VITALS: BP 95/51; PULSE 88; TEMP 36.4
[2022-11-15 20:17] VITALS: BP 122/60; PULSE 98; RESP 18; TEMP 36.6; O2SAT 98
[2022-11-15] MEDS: Divalproex Sodium ER 500 MG TAB.ER.24H 2000 MG PO (21:02)
[2022-11-15] MEDS: cloNIDine HCL 0.1 MG TABLET PO (23:26)
[2022-11-16] MEDS: Nicotine Polacrilex 2 MG GUM 4 MG BUCCAL ×6 (00:26→21:23)
[2022-11-16] MEDS: traZODone HCL 100 MG TABLET PO ×2 (00:26→22:38)
[2022-11-16 09:00] VITALS: BP 100/60; PULSE 114; RESP 18; TEMP 35.7; O2SAT 97
[2022-11-16] MEDS: Perphenazine 2 MG TABLET 6 MG PO ×2 (09:33→14:05)
--- NOTE | 2022-11-16 10:39 | P.PNPSI_ITS ---
Subjective Subjective Date of Service: 11/16/22 Reason For Visit: Manic Interim History: Met with patient; discussed with team; reviewed weekend notes; met with patient's outpatient team, Rula and Rupa. Patient remained manic, labile over the weekend, sexually intrusive towards female peers; through items, water pitcher and anger and covering provider increased Depakote dose. Today patient is less irritable but still labile, with mild to moderately pressured speech and delusional thoughts; patient says she wants discharge however when development writer says that it this is being planned for tomorrow after today's meeting with her outpatient team, patient started to cry laid down on the floor sobbing and said she refuses to talk to this development writer ever again. Patient was able to calm herself down. Later on in the meeting she again started to cry because she wanted to go home today however got herself under control and accepted to remain on the unit another day. Outpatient team agrees that this is close to her baseline presentation in the community. Discussed medication with patient, given her frequent intermittent non adherence; reviewed past progress notes and see that patient had done well on Abilify in the past (progress note 09/04/21). Patient like the idea of that Abilify also comes in long-acting injectable saying it is easy for her to keep up with medications this way. Team agrees with restarting Abilify and discharge tomorrow. Mental Status Exam Mental Status Exam Narrative: Pt is alert and oriented; behavior is manic, with labile mood, verbose, mostly friendly; patient is not in distress; dressed in casual attire with shaved head, adequately, groomed; mood is described as good yet affect expansive and labile; eye contact appropriate; Speech is mild to moderately pressured; normal volume and prosody; intermittent psychomotor agitation present; thought process can be goal directed, but jumps to various topics and is very circumstantial, sometimes tangential; Thought content is on discharge and various other rambling and delusional thoughts, some paranoid; no SI; no HI. There is no evidence of perceptual disturbance. Patients insight and judgment are impaired but improved. Diagnostics Vital Signs (24Hr): Vital Signs - 24 hr 11/15/22 16:05 11/15/22 20:17 11/16/22 09:00 Temperature 97.5 F 97.9 F 96.3 F L Pulse Rate 88 98 114 H Respiratory Rate 18 18 Blood Pressure 95/51 L 122/60 100/60 Pulse Oximetry 98 97 Oxygen Delivery Method Room Air Room Air BMI result Body Mass Index 22.8 Labs 11/12/22 14:21 11/12/22 00:29 Medications Medications Current Medications Acetaminophen (Acetaminophen 325 Mg Tablet) 650 mg PO Q6H PRN PRN Reason: Headache/Pain Mild Scale (1-3) Last Admin: 11/15/22 04:55 Dose: 650 mg Al Hydroxide/Mg Hydroxide (Magnesium Hydrox/Alum Hydrox 30 Ml Oral.Susp) 30 ml PO Q6H PRN PRN Reason: Heartburn/Nausea Clonidine HCl (Clonidine Hcl 0.1 Mg Tablet) 0.1 mg PO BID PRN; Protocol PRN Reason: Anxiety Last Admin: 11/15/22 23:26 Dose: 0.1 mg Clonidine HCl (Clonidine Hcl 0.1 Mg Tablet) 0.1 mg PO Q4H PRN; Protocol PRN Reason: anxiety Last Admin: 11/16/22 06:18 Dose: 0.1 mg Divalproex Sodium (Divalproex Sodium Er 500 Mg Tab.Er.24h) 2,000 mg PO BEDTIME [place] Last Admin: 11/15/22 21:02 Dose: 2,000 mg Lorazepam (Lorazepam 0.5 Mg Tablet) 0.5 mg PO QID PRN PRN Reason: Anxiety Last Admin: 11/16/22 05:01 Dose: 0.5 mg Magnesium Hydroxide (Milk Of Magnesia 30 Ml Oral.Susp) 30 ml PO DAILY PRN PRN Reason: Constipation Nicotine Polacrilex (Nicotine Polacrilex 2 Mg Gum) 4 mg BUCCAL Q2H PRN PRN Reason: nicotine cravings Last Admin: 11/16/22 09:42 Dose: 4 mg Nicotine Polacrilex (Nicotine Polacrilex 2 Mg Gum) 4 mg BUCCAL Q2H PRN PRN Reason: Nicotine Cravings Last Admin: 11/13/22 23:05 Dose: 4 mg Perphenazine (Perphenazine 4 Mg Tablet) 4 mg PO BID PRN PRN Reason: agitation Last Admin: 11/15/22 23:26 Dose: 4 mg Perphenazine (Perphenazine 2 Mg Tablet) 6 mg PO BID@0900,1500 [facility] Last Admin: 11/16/22 09:33 Dose: 6 mg Trazodone HCl (Trazodone Hcl 100 Mg Tablet) 100 mg PO BEDTIME PRN PRN Reason: insomnia Last Admin: 11/16/22 00:26 Dose: 100 mg Allergies Allergies Allergy/AdvReac Type Severity Reaction Status Date / Time insect venom [MOSQUITO] Allergy Unknown UNKNOWN Verified 03/09/22 18:01 paliperidone [From INVEGA] Allergy Unknown DYSTONIC Verified 03/09/22 18:01 REACTION haloperidol [HALOPERIDOL] AdvReac Intermediate Dystonic Verified 03/09/22 18:01 reaction Assessment & Plan Assessment & Plan (1) Bipolar 1 disorder: Status: Acute Code(s): F31.9 - Bipolar disorder, unspecified Assessment and Plan: inc depakote, inc perphenazine a tad- as well as requested 3rd prn dose of ativan (2) Chronic post-traumatic stress disorder (PTSD): Status: Acute Code(s): F43.12 - Post-traumatic stress disorder, chronic Assessment and Plan: CTP Plan pt is a 22 yo female with hx of bipolar disorder, PTSD, recently discharged from on 10/29 who presents for manic behavior in face of medications non-adherence . Patient presents with manic behaviors, pressured rambling speech, paranoid delusions, some grandiosity, irritability, sometimes saying she wants to stay sometimes demanding to go and angry. Limited insight. Making suicidal comments like saying she wants to jump off a building. -patient frequently not adherent with medications post discharge; will try to see if there is a long-acting injectable patient would be willing to try Hospital course: 11/16 patient remains manic however she is less irritable and with improved insight; agrees to switch to Abilify since a comes in long-acting injectable. Outpatient team meeting on unit with patient who agree that this is the baseline with which patient operates in the community. Hopeful that with increased compliance patient's baseline can significantly improve. Patient's 3 day up tomorrow. She is not in imminent risk for harm to self or others and her request for discharge honored Plan: agnes GUIDRY sign 3 day notice Q 15 minute checks Depakote ER 2000 mg q.h.s., increased over the weekend Start Abilify 10 mg daily Will order Abilify Maintena to be administered in the community since it is not on formulary in the hospital; will cross taper with perphenazine Perphenazine 4 mg b.i.d. Perphenazine 4 mg p.r.n. Discontinued mirtazapine due to todd Patient educated on: diagnosis, medication risk/benefits and therapeutic strategies Informed Consent: understands Reason for continued inpatient stay Substantial Risk for: stable for discharge Time Spent With Patient Time: Total time managing care of this patient today ____ minutes.
[2022-11-16 18:00] VITALS: BP 114/57; PULSE 125; TEMP 36.1; O2SAT 100
[2022-11-16] MEDS: Divalproex Sodium ER 500 MG TAB.ER.24H 2000 MG PO (22:31)
[2022-11-17] MEDS: Acetaminophen 325 MG TABLET 650 MG PO (05:14)
[2022-11-17] MEDS: Nicotine Polacrilex 2 MG GUM 4 MG BUCCAL (05:16)
[2022-11-17 08:00] VITALS: BP 102/62; PULSE 72; RESP 16; TEMP 36.6; O2SAT 98
[2022-11-17] MEDS: Perphenazine 2 MG TABLET 6 MG PO (08:06)
[2022-11-17] MEDS: ARIPiprazole 10 MG TABLET PO (08:06)
[2022-11-17 10:26] LABS: Alanine Aminotransferase 8 U/L (0-31); Albumin Level 4.1 g/dL (3.5-5.0); Alkaline Phosphatase 41 U/L (39-117); Aspartate Amino Transferase 16 U/L (5-31); Bilirubin Direct 0.1 mg/dL (0.0-0.5); Bilirubin Total 0.4 mg/dL (0.0-1.0)
--- NOTE | 2022-11-17 10:28 | PM.PSYDC ---
DS: Providers Provider Date of Service: 11/17/22 Date of admission: 11/12/22 18:03 Date of discharge: 11/17/22 Primary care physician: Unknown Physician Attending physician on admission: Mario Aranda Attending physician on discharge: Mario Aranda DS: Diagnosis Discharge Diagnosis (1) Bipolar 1 disorder: Status: Acute (2) Chronic post-traumatic stress disorder (PTSD): Status: Acute DS: Medications Discharge Medications Home Medications: Home Medications Medication Instructions Recorded Confirmed clonidine HCl 0.1 mg tablet 0.1 mg PO BID PRN Anxiety 11/02/22 11/11/22 mirtazapine 15 mg tablet 15 mg PO BEDTIME 11/02/22 11/11/22 perphenazine 4 mg tablet 6 mg PO BEDTIME PRN 11/02/22 11/11/22 anxiety/agitation Previous Rx's Medication Instructions Recorded divalproex 500 mg tablet,extended 1,500 mg PO BEDTIME 30 days #90 10/29/22 release 24 hr tabs nicotine (polacrilex) 2 mg gum 4 mg buccal Q2H PRN nicotine 10/29/22 cravings 30 days #110 ea perphenazine 4 mg tablet 4 mg PO BID@0900,1500 30 days #60 10/29/22 tabs trazodone 100 mg tablet 100 mg PO BEDTIME PRN insomnia 30 10/29/22 days #30 tabs Mental Status Exam Mental Status Exam Narrative: Pt is alert and oriented; behavior is manic, with labile mood, verbose, mostly friendly; patient is not in distress; dressed in casual attire with shaved head, adequately, groomed; mood is described as good yet affect expansive and labile; eye contact appropriate; Speech is mild to moderately pressured; normal volume and prosody; intermittent psychomotor agitation present; thought process can be goal directed, but jumps to various topics and is very circumstantial, sometimes tangential; Thought content is on discharge and various other rambling and delusional thoughts, some paranoid; no SI; no HI. There is no evidence of perceptual disturbance. Patients insight and judgment are impaired but improved. Data Data Completed and Pending Completed studies during hospitalization [Text1]: 11/12/22 11/12/22 11/12/22 00:20 00:20 00:20 WBC RBC Hgb Hct MCV MCH MCHC RDW Plt Count MPV Immature Gran % (Auto) Neut % (Auto) Lymph % (Auto) [place] % (Auto) Eos % (Auto) Baso % (Auto) Lymph # (Auto) [place] # (Auto) Eos # (Auto) Baso # (Auto) Abs Immat Gran (auto) Absolute Neuts (auto) Absolute Nucleated RBC Nucleated RBC % (auto) Sodium Potassium Chloride Carbon Dioxide Anion Gap BUN Creatinine Estim Creat Clear Calc Estimated GFR Random Glucose Calcium Total Bilirubin Direct Bilirubin AST ALT Alkaline Phosphatase Total Protein Albumin Urine Color Yellow Urine Appearance Clear Urine pH 6.5 Ur Specific [place] <= 1.005 Urine Protein Negative Urine Glucose (UA) Negative Urine Ketones Negative Urine Blood Negative Urine Nitrite Negative Ur Leukocyte Esterase Negative Urine Test NEGATIVE Urine Opiates Screen Not Detected Urine Fentanyl Screen Not Detected Ur Barbiturates Screen Not Detected Valproic Acid Ur Phencyclidine Scrn Not Detected Ur Amphetamines Screen Not Detected U Benzodiazepines Scrn Not Detected Urine Cocaine Screen Not Detected U Marijuana (THC) Screen POSITIVE H Ethyl Alcohol COVID-19 ([facility]) COVID-19 Clin Com 11/12/22 11/12/22 11/12/22 00:29 00:29 14:21 WBC 5.7 RBC 4.60 Hgb 14.1 Hct 41.8 MCV 90.9 MCH 30.7 MCHC 33.7 RDW 11.9 Plt Count 227 MPV 10.0 Immature Gran % (Auto) 0.2 Neut % (Auto) 36.9 L Lymph % (Auto) 52.4 H [place] % (Auto) 9.2 Eos % (Auto) 1.0 Baso % (Auto) 0.3 Lymph # (Auto) 3.0 [place] # (Auto) 0.5 Eos # (Auto) 0.1 Baso # (Auto) 0.0 Abs Immat Gran (auto) 0.01 Absolute Neuts (auto) 2.1 Absolute Nucleated RBC 0.000 Nucleated RBC % (auto) 0.0 Sodium 139 Potassium 4.4 D Chloride 107 Carbon Dioxide 23 Anion Gap 13 BUN 6 L Creatinine 0.68 Estim Creat Clear Calc 126.1 Estimated GFR > 60 Random Glucose 82 Calcium 10.1 D Total Bilirubin 0.4 Direct Bilirubin AST 17 ALT 7 Alkaline Phosphatase 42 Total Protein 7.1 Albumin 4.2 Urine Color Urine Appearance Urine pH Ur Specific [place] Urine Protein Urine Glucose (UA) Urine Ketones Urine Blood Urine Nitrite Ur Leukocyte Esterase Urine Test Urine Opiates Screen Urine Fentanyl Screen Ur Barbiturates Screen Valproic Acid 19.1 L Ur Phencyclidine Scrn Ur Amphetamines Screen U Benzodiazepines Scrn Urine Cocaine Screen U Marijuana (THC) Screen Ethyl Alcohol < 10 COVID-19 ([facility]) COVID-19 Clin Com 11/12/22 11/17/22 11/17/22 15:40 09:18 09:18 WBC RBC Hgb Hct MCV MCH MCHC RDW Plt Count MPV Immature Gran % (Auto) Neut % (Auto) Lymph % (Auto) [place] % (Auto) Eos % (Auto) Baso % (Auto) Lymph # (Auto) [place] # (Auto) Eos # (Auto) Baso # (Auto) Abs Immat Gran (auto) Absolute Neuts (auto) Absolute Nucleated RBC Nucleated RBC % (auto) Sodium Potassium Chloride Carbon Dioxide Anion Gap BUN Creatinine Estim Creat Clear Calc Estimated GFR Random Glucose Calcium Total Bilirubin 0.4 Direct Bilirubin 0.1 AST 16 ALT 8 Alkaline Phosphatase 41 Total Protein 7.0 Albumin 4.1 Urine Color Urine Appearance Urine pH Ur Specific [place] Urine Protein Urine Glucose (UA) Urine Ketones Urine Blood Urine Nitrite Ur Leukocyte Esterase Urine Test Urine Opiates Screen Urine Fentanyl Screen Ur Barbiturates Screen Valproic Acid Pending Ur Phencyclidine Scrn Ur Amphetamines Screen U Benzodiazepines Scrn Urine Cocaine Screen U Marijuana (THC) Screen Ethyl Alcohol COVID-19 ([facility]) Negative COVID-19 Clin Com See Note DS: Summary Hospital Course Hospital Course: pt is a 22 yo female with hx of bipolar disorder, PTSD, recently discharged from on 10/29 who presents for manic behavior in face of medications non-adherence.? Patient presents with manic behaviors, pressured rambling speech, paranoid delusions, some grandiosity, irritability, sometimes saying she wants to stay sometimes demanding to go and angry.? Limited insight.? Making suicidal comments like saying she wants to jump off a building. Hospital course: as patient frequently not adherent with medications post discharge, discussed med options with patient who agreed to go back on Abilify since it came in a long-acting injectable. patient remains with manic symptoms however she is less irritable and with improved insight; she tolerated Abilify well and continued to agree to long-acting injectable; Abilify Maintena was not available in the hospital but patient agreed to get it on day of discharge as well as continue with p.o. Abiaryan for 2 weeks. Outpatient team meeting on unit with patient who agree that patient has returned to her baseline with which patient operates in the community.? Hopeful that with increased compliance patient's baseline can significantly improve. She remains vulnerable to medication non adherence and decompensation, as these are chronic struggle for her. And it is likely that patient will again wander into unsafe territory and return for admission. However as mentioned, patient has returned to her operating baseline. While it is preferable that she remain on the unit until fully stabilized, her 3 day is due tomorrow and she does not rise to the level of involuntary commitment. She is not in imminent risk for harm to self or others and her request for discharge honored Time spent discussing smoking cessation with patient: 3 to 10 minutes Status at Discharge Functional status at discharge: independent ambulation Overall status at discharge: patient is back to baseline Time Spent with Patient Time attestation: Total time managing care of this patient today ____ minutes. Time spent: Less than 30 minutes Discharge Plan Discharge Anticipated Discharge Date/Time: 11/17/22 11:30 Patient Disposition: Home, Self-Care Discharge Diagnosis: bipolar disorder, recurrent, severe in partial remission Referrals: Therapy: Sahara Carrillo ([facility]) [Other] - 11/17/22 2:15 pm (Telehealth ) Dimas Krishnan: [facility]: (psychiatry) [Other] - 11/19/22 9:00 am (Follow-up discharge appointment for psychiatry Appointment in person at [facility]) [facility] [Other] - 1 Week (If you have any issues or concerns, please utilize their walk in center or give them a call. ) Discharge Medications: New Abilify Maintena 400 mg suspension,extended rel recon 400 mg IM QMONTH 30 Days Qty: 1 0RF Patient Comments: Reports she took 11/19 Rx Instructions: to be administered cayla Discontinued clonidine HCl 0.1 mg tablet 0.1 mg PO BID PRN (Reason: Anxiety) mirtazapine 15 mg tablet 15 mg PO BEDTIME perphenazine 4 mg tablet 6 mg PO BEDTIME PRN (Reason: anxiety/agitation) divalproex 500 mg Tablet Extended Release 24 Hr 1,500 mg PO BEDTIME 30 Days Qty: 90 0RF perphenazine 4 mg Tablet 4 mg PO BID@0900,1500 30 Days Qty: 60 0RF trazodone 100 mg tablet 100 mg PO BEDTIME PRN (Reason: insomnia) 30 Days Qty: 30 0RF No Action aripiprazole 15 mg Tablet 15 mg PO DAILY 14 Days Qty: 14 0RF lithium carbonate 300 mg Tablet Extended Release 300 mg PO BEDTIME 30 Days Qty: 30 0RF clonidine HCl 0.1 mg tablet 0.1 mg PO Q4H PRN (Reason: Anxiety) 30 Days Qty: 90 1RF trazodone 100 mg tablet 100 mg PO BEDTIME PRN (Reason: insomnia) 30 Days Qty: 30 1RF nicotine (polacrilex) 4 mg gum 4 mg buccal Q2H PRN (Reason: nicotine cravings) 30 Days Qty: 110 1RF divalproex 500 mg Tablet Extended Release 24 Hr 1,500 mg PO BEDTIME 30 Days Qty: 90 1RF perphenazine 4 mg Tablet 4 mg PO TID 30 Days Qty: 90 0RF Rx Instructions: take at 9am, 3pm and 9pm perphenazine 4 mg tablet 4 mg PO DAILY PRN (Reason: agitation) 30 Days Qty: 30 0RF Discharge Orders: Discharge Order (Routine); Ordered 11/17/22 Ordered By: Mario Aranda Diet: Regular diet Activity on Discharge: As tolerated Stand Alone Forms: Patient Portal Discharge page, Community Support Care Plan Goals: Maintain mood and safe behaviors Take medications as prescribed Continue to pursue sobriety from Cannabis [facility] coping skills Continue with outpatient providers and reach out to them as needed Health Concerns: Mood stability and behaviors Plan of Treatment: Follow up with your PCP, psychiatric provider and other outpatient providers regarding above concerns Take medications as prescribed Assessment: Risk assessment at time of discharge:? Patient was interviewed prior to discharge and found to be fully oriented and without any SI or HI. Patient has insight and demonstrates good judgment in terms of wanting to pursue treatment. Patient is not in imminent risk of harm to self or others and has a safety plan that includes presenting to the closest ER or calling 911 if feeling unsafe.? Patient has been observed closely by nursing and unit staff throughout admission; patient has not engaged in any behaviors that suggest dangerousness to self or others and has demonstrated appropriate behaviors and impulse control Discharge Date/Time: 11/17/22 12:23
[2022-11-17 10:43] LABS: Valproate 113.8 mcg/mL (50.0-100.0)
== END 2022-11-17 12:23 | disposition home or self-care (01) | DRG 753 ==
LOC: HO.ED 23:51 → HO.PM5 11-12 19:01
PROVIDERS: Admitting Provider Psychiatry & Neurology Psychiatry; Emergency Provider Emergency Medicine Emergency Medical Services; Visit Provider Psychiatry & Neurology Psychiatry
DX: F31.10 Bipolar disorder, current episode manic without psychotic features, unspecified (principal); Z91.148 Patient's other noncompliance with medication regimen for other reason; F17.210 Nicotine dependence, cigarettes, uncomplicated; F43.12 Post-traumatic stress disorder, chronic; Z20.822 Contact with and (suspected) exposure to COVID-19; Z71.6 Tobacco abuse counseling; Z79.899 Other long term (current) drug therapy
CPT/HCPCS: 36415; 80053; 80076; 80164; 80307; 81003; 81025; 85025; 87635; 99285; S9485

== ENCOUNTER → 2022-11-12 18:03 | Outpatient (BNV) | payer OTHER, SELFPAY | PROVIDERS: Admitting Provider Psychiatry & Neurology Psychiatry; Emergency Provider Emergency Medicine Emergency Medical Services; Visit Provider Psychiatry & Neurology Psychiatry | DX: F31.13 Bipolar disorder, current episode manic without psychotic features, severe (principal); F43.12 Post-traumatic stress disorder, chronic | CPT/HCPCS: 99232; 99233 ==

== ENCOUNTER 2022-11-24 12:24 | Inpatient (IN) | payer OTHER, MEDICAID, SELFPAY ==
[2022-11-24 12:41] VITALS: BP 100/60; PULSE 81; RESP 18; TEMP 36.7; O2SAT 98; BMI 23.4
--- NOTE | 2022-11-24 13:40 | ED.PSYCH ---
HPI - Psych General Chief Complaint: Psychiatric Symptoms Stated Complaint: crisis Time Seen by Provider: 11/24/22 13:25 Source: patient Mode of arrival: ambulatory Limitations: no limitations History of Present Illness HPI Narrative: 22 year old patient with history of Bipolar 1 disorder and chronic PTSD, manic bahvior, paranoid delusions and anorexia, presents to the ED due to SI and HI. Per patient she sees lizard people that talk to her through other individuals and they tell her to harm herself and others. She states she has no plan for attempting suicide and has no thoughts of self harm currently but has partook in self harm in the past with cutting. She endorses that she is aware of her mental health issues and needs help with them which is why she wanted to come to the hospital. She elicits these lizard people telling her I should kill myself because heaven is better and they talk all negative stuff to me. She states that she has had SI in the past so she can't see or hear the lizard people anymore. MD complaint: suicidal ideation Onset (ago): year(s) Duration: changing over time History of same: Yes Related Data Previous Rx's Medication Instructions Recorded nicotine (polacrilex) 2 mg gum 4 mg buccal Q2H PRN nicotine 10/29/22 cravings 30 days #110 ea aripiprazole 10 mg tablet 10 mg PO DAILY 14 days #14 tabs 11/17/22 aripiprazole 400 mg intramuscular 400 mg IM QMONTH 30 days #1 ea 11/17/22 suspension,extended release (Mariellaliherlinda Maintena) clonidine HCl 0.1 mg tablet 0.1 mg PO QID PRN Anxiety 30 days 11/17/22 #90 tabs divalproex 500 mg tablet,extended 1,500 mg PO BEDTIME 30 days #90 11/17/22 release 24 hr tabs perphenazine 4 mg tablet 4 mg PO BID PRN agitation 30 days 11/17/22 #30 tabs perphenazine 4 mg tablet 4 mg PO BID@0900,1500 30 days #60 11/17/22 tabs trazodone 100 mg tablet 100 mg PO BEDTIME PRN insomnia 30 11/17/22 days #30 tabs Allergies Allergy/AdvReac Type Severity Reaction Status Date / Time insect venom [MOSQUITO] Allergy Unknown UNKNOWN Verified 03/09/22 18:01 paliperidone [From INVEGA] Allergy Unknown DYSTONIC Verified 03/09/22 18:01 REACTION haloperidol [HALOPERIDOL] AdvReac Intermediate Dystonic Verified 03/09/22 18:01 reaction Review of Systems Review of Systems: Yes all other systems are reviewed and are negative Constitutional: Constitutional: Reports headache(s) ENT: Reports headache(s) Neurologic: Reports headache(s) Psychiatric: Psychiatric: Reports no additional psychiatric complaints, Reports auditory hallucinations, Reports paranoia, Reports visual hallucinations, Reports hallucinations, Reports homicidal ideation and Reports suicidal ideation [facility] Past Medical History Medical History Anxiety Bipolar 1 disorder Bipolar disorder Depression Social History Social History Household Members: Friend(s) Household Members Other:: Resides at [facility] currently Housing: Apartment Do you presently have visiting nurse or other home services: No Alcohol intake: never Patient Tobacco Use Status: Current everyday Tobacco user Tobacco use type: Cigarette Cigarettes Per Day: 7 Years Smoked: 2 years Smoked in Last 30 Days: Yes e-Cigarette/Vaping Use: Former Use Second Hand Smoke Exposure: No Use of substances other than those prescribed or required for medical reasons: Yes Substance Use Type: Marijuana Advance Directives: No Advance Directives Information Provided: No service: No Sexual orientation: Don't Know Physical Exam Vital Signs: Vital Signs: Last Vital Signs Temp 98.0 F 11/24/22 12:41 Pulse 81 11/24/22 12:41 Resp 18 11/24/22 12:41 BP 100/60 11/24/22 12:41 Pulse Ox 98 11/24/22 12:41 O2 Del Method Room Air 11/24/22 12:41 BMI result Body Mass Index 23.4 Appearance: Alert. Oriented X3. No acute distress. Head: normocephalic, atraumatic. Neck: Normal inspection. Neck supple. CVS: Normal heart rate and rhythm. Pulses normal. Respiratory: No respiratory distress. Breath sounds normal. Skin: Skin warm and dry. Normal skin color. Extremities: No lower extremity edema. No joint swelling. Neuro/psych: Oriented X 3. Nonfocal. CN II-XII intact. Pressured speech, attitude is cooperative, thoughts are delusional and paranoid in nature, patient has animated affects. +SI(no plan) and HI(night prior 11/23 towards brother) Course Reevaluation(s) Reevaluation #1: Physician observation started at 15:40. Patient placed in physician observation because patient is awaiting CARE team evaluation for the possible need of inpatient psych admission. At the time observation was started patient's vital signs were stable. Patient is alert and oriented. Neuro exam is non-focal. CV: RRR and lungs are clear. Will continue to monitor. Time: 15:40 Medical Decision Making Medical Decision Making MDM Narrative: 22 year old patient with history of Bipolar 1 disorder and chronic PTSD, manic bahvior, paranoid delusions and anorexia, presents to the ED due to SI and HI. Patient is cooperative and states she wants to be compliant with treatment including medications. Labs ordered including CBC, CMP, drug screen, ethonol, salicylate, UA, urine and depakote levels. Depakote levels and to 65 from 05/22 last week. Question if she has been compliant. consult with care team placed. Differential Diagnosis Differential Diagnoses: The differential diagnosis associated with the presentation includes polysubstance abuse, manic episode, decompensation of Bipolar 1 disorder, SI, HI, medication noncompliance Admission/Observation Consideration of admission/observation: Escalation of care including admission/observation considered Decompensated psychiatric disorder, most likely needs inpatient level of care Lab Data 11/24/22 15:07 11/24/22 14:11 Labs: Lab Results 11/24/22 11/24/22 11/24/22 Range/Units 14:00 14:00 14:00 WBC (4.8-10.8) X10*3/uL RBC (4.20-5.50) X10*6/uL Hgb (12.0-16.0) g/dl Hct (37.0-47.0) % MCV (80.0-98.0) fL MCH (27.0-33.0) pg MCHC (31.0-35.0) g/dl RDW (11.0-16.0) % Plt Count (160-400) X10*3/uL MPV (9.4-12.3) fL Immature Gran % (Auto) (0.0-0.4) % Neut % (Auto) (45-73) % Lymph % (Auto) (20-40) % [place] % (Auto) (2-11) % Eos % (Auto) (0-4) % Baso % (Auto) (0-2) % Lymph # (Auto) (1.2-4.9) X10*3/uL [place] # (Auto) (0.1-1.2) X10*3/uL Eos # (Auto) (0.0-0.4) X10*3/uL Baso # (Auto) (0.0-0.2) X10*3/uL Abs Immat Gran (auto) (0.00-0.03) X10*3/uL Absolute Neuts (auto) (2.0-8.3) x10*3/uL Absolute Nucleated RBC (0.0-0.012) X10*3/uL Nucleated RBC % (auto) (0.0-0.2) /100WBC Sodium (135-145) mmol/L Potassium (3.3-5.1) mmol/L Chloride (96-108) mmol/L Carbon Dioxide (22-29) mmol/L Anion Gap (12-20) BUN (9-16) mg/dL Creatinine (0.5-1.4) mg/dL Estim Creat Clear Calc Estimated GFR Random Glucose (60-115) mg/dL Calcium (8.4-10.2) mg/dL Total Bilirubin (0.0-1.0) mg/dL AST (5-31) U/L ALT (0-31) U/L Alkaline Phosphatase (39-117) U/L Total Protein (6.5-8.0) g/dL Albumin (3.5-5.0) g/dL Urine Color Yellow Urine Appearance Clear Urine pH 7.0 (5.0-9.0) Ur Specific [place] 1.010 (1.005-1.025) Urine Protein Negative (Neg-Trace) mg/dL Urine Glucose (UA) Negative (Negative) mg/dL Urine Ketones 15 (Negative) mg/dL Urine Blood Negative (Negative) Urine Nitrite Negative (Negative) Ur Leukocyte Esterase Trace H (Negative) Urine RBC 0-2 (0-2) /HPF Urine WBC 0-5 (0-5) /HPF Ur Squamous Epith Cells 11-20 (0-2) /HPF Urine Bacteria 1+ (None Seen) Hyaline Casts 0-2 (0-2) /LPF Urine Test NEGATIVE (NEGATIVE) Salicylates (15-30) mg/dL Urine Opiates Screen Not Detected (Not Detect) Urine Fentanyl Screen Not Detected (Not Detect) Acetaminophen (<30) mcg/mL Ur Barbiturates Screen Not Detected (Not Detect) Valproic Acid (50.0-100.0) mcg/mL Ur Phencyclidine Scrn Not Detected (Not Detect) Ur Amphetamines Screen Not Detected (Not Detect) U Benzodiazepines Scrn Not Detected (Not Detect) Urine Cocaine Screen Not Detected (Not Detect) U Marijuana (THC) Screen POSITIVE H (Not Detect) Ethyl Alcohol mg/dL 11/24/22 11/24/22 11/24/22 Range/Units 14:11 14:11 15:07 WBC 5.2 (4.8-10.8) X10*3/uL RBC 4.50 (4.20-5.50) X10*6/uL Hgb 13.9 (12.0-16.0) g/dl Hct 42.1 (37.0-47.0) % MCV 93.6 (80.0-98.0) fL MCH 30.9 (27.0-33.0) pg MCHC 33.0 (31.0-35.0) g/dl RDW 11.9 (11.0-16.0) % Plt Count 195 (160-400) X10*3/uL MPV 10.4 (9.4-12.3) fL Immature Gran % (Auto) 0.2 (0.0-0.4) % Neut % (Auto) 52.8 (45-73) % Lymph % (Auto) 39.3 (20-40) % [place] % (Auto) 6.9 (2-11) % Eos % (Auto) 0.2 (0-4) % Baso % (Auto) 0.6 (0-2) % Lymph # (Auto) 2.1 (1.2-4.9) X10*3/uL [place] # (Auto) 0.4 (0.1-1.2) X10*3/uL Eos # (Auto) 0.0 (0.0-0.4) X10*3/uL Baso # (Auto) 0.0 (0.0-0.2) X10*3/uL Abs Immat Gran (auto) 0.01 (0.00-0.03) X10*3/uL Absolute Neuts (auto) 2.8 (2.0-8.3) x10*3/uL Absolute Nucleated RBC 0.000 (0.0-0.012) X10*3/uL Nucleated RBC % (auto) 0.0 (0.0-0.2) /100WBC Sodium 138 (135-145) mmol/L Potassium 3.6 (3.3-5.1) mmol/L Chloride 108 (96-108) mmol/L Carbon Dioxide 22 (22-29) mmol/L Anion Gap 12 (12-20) BUN 5 L (9-16) mg/dL Creatinine 0.63 (0.5-1.4) mg/dL Estim Creat Clear Calc 131.1 Estimated GFR > 60 Random Glucose 114 (60-115) mg/dL Calcium 9.1 D (8.4-10.2) mg/dL Total Bilirubin 0.4 (0.0-1.0) mg/dL AST 17 (5-31) U/L ALT 7 (0-31) U/L Alkaline Phosphatase 38 L (39-117) U/L Total Protein 6.7 (6.5-8.0) g/dL Albumin 3.6 (3.5-5.0) g/dL Urine Color Urine Appearance Urine pH (5.0-9.0) Ur Specific [place] (1.005-1.025) Urine Protein (Neg-Trace) mg/dL Urine Glucose (UA) (Negative) mg/dL Urine Ketones (Negative) mg/dL Urine Blood (Negative) Urine Nitrite (Negative) Ur Leukocyte Esterase (Negative) Urine RBC (0-2) /HPF Urine WBC (0-5) /HPF Ur Squamous Epith Cells (0-2) /HPF Urine Bacteria (None Seen) Hyaline Casts (0-2) /LPF Urine Test (NEGATIVE) Salicylates < 5.0 L (15-30) mg/dL Urine Opiates Screen (Not Detect) Urine Fentanyl Screen (Not Detect) Acetaminophen < 17 (<30) mcg/mL Ur Barbiturates Screen (Not Detect) Valproic Acid (50.0-100.0) mcg/mL Ur Phencyclidine Scrn (Not Detect) Ur Amphetamines Screen (Not Detect) U Benzodiazepines Scrn (Not Detect) Urine Cocaine Screen (Not Detect) U Marijuana (THC) Screen (Not Detect) Ethyl Alcohol < 10 mg/dL 11/24/22 Range/Units 15:07 WBC (4.8-10.8) X10*3/uL RBC (4.20-5.50) X10*6/uL Hgb (12.0-16.0) g/dl Hct (37.0-47.0) % MCV (80.0-98.0) fL MCH (27.0-33.0) pg MCHC (31.0-35.0) g/dl RDW (11.0-16.0) % Plt Count (160-400) X10*3/uL MPV (9.4-12.3) fL Immature Gran % (Auto) (0.0-0.4) % Neut % (Auto) (45-73) % Lymph % (Auto) (20-40) % [place] % (Auto) (2-11) % Eos % (Auto) (0-4) % Baso % (Auto) (0-2) % Lymph # (Auto) (1.2-4.9) X10*3/uL [place] # (Auto) (0.1-1.2) X10*3/uL Eos # (Auto) (0.0-0.4) X10*3/uL Baso # (Auto) (0.0-0.2) X10*3/uL Abs Immat Gran (auto) (0.00-0.03) X10*3/uL Absolute Neuts (auto) (2.0-8.3) x10*3/uL Absolute Nucleated RBC (0.0-0.012) X10*3/uL Nucleated RBC % (auto) (0.0-0.2) /100WBC Sodium (135-145) mmol/L Potassium (3.3-5.1) mmol/L Chloride (96-108) mmol/L Carbon Dioxide (22-29) mmol/L Anion Gap (12-20) BUN (9-16) mg/dL Creatinine (0.5-1.4) mg/dL Estim Creat Clear Calc Estimated GFR Random Glucose (60-115) mg/dL Calcium (8.4-10.2) mg/dL Total Bilirubin (0.0-1.0) mg/dL AST (5-31) U/L ALT (0-31) U/L Alkaline Phosphatase (39-117) U/L Total Protein (6.5-8.0) g/dL Albumin (3.5-5.0) g/dL Urine Color Urine Appearance Urine pH (5.0-9.0) Ur Specific [place] (1.005-1.025) Urine Protein (Neg-Trace) mg/dL Urine Glucose (UA) (Negative) mg/dL Urine Ketones (Negative) mg/dL Urine Blood (Negative) Urine Nitrite (Negative) Ur Leukocyte Esterase (Negative) Urine RBC (0-2) /HPF Urine WBC (0-5) /HPF Ur Squamous Epith Cells (0-2) /HPF Urine Bacteria (None Seen) Hyaline Casts (0-2) /LPF Urine Test (NEGATIVE) Salicylates (15-30) mg/dL Urine Opiates Screen (Not Detect) Urine Fentanyl Screen (Not Detect) Acetaminophen (<30) mcg/mL Ur Barbiturates Screen (Not Detect) Valproic Acid 65.2 (50.0-100.0) mcg/mL Ur Phencyclidine Scrn (Not Detect) Ur Amphetamines Screen (Not Detect) U Benzodiazepines Scrn (Not Detect) Urine Cocaine Screen (Not Detect) U Marijuana (THC) Screen (Not Detect) Ethyl Alcohol mg/dL Discharge Plan Discharge Clinical Impression: Bipolar 1 disorder, Acute psychosis Patient Disposition: Still a Patient Prescriptions: No Action Abilify Maintena 400 mg suspension,extended rel recon 400 mg IM QMONTH 30 Days Qty: 1 0RF Patient Comments: Reports she took 11/19 Rx Instructions: to be administered cayla aripiprazole 10 mg Tablet 10 mg PO DAILY 14 Days Qty: 14 0RF perphenazine 4 mg Tablet 4 mg PO BID PRN (Reason: agitation) 30 Days Qty: 30 0RF clonidine HCl 0.1 mg tablet 0.1 mg PO QID PRN (Reason: Anxiety) 30 Days Qty: 90 0RF trazodone 100 mg tablet 100 mg PO BEDTIME PRN (Reason: insomnia) 30 Days Qty: 30 0RF divalproex 500 mg Tablet Extended Release 24 Hr 1,500 mg PO BEDTIME 30 Days Qty: 90 0RF perphenazine 4 mg Tablet 4 mg PO BID@0900,1500 30 Days Qty: 60 0RF nicotine (polacrilex) 2 mg Gum 4 mg buccal Q2H PRN (Reason: nicotine cravings) 30 Days Qty: 110 0RF Interventions: [place]-Suicide Risk Severity Scale Last Done: 11/24/22 12:58
[2022-11-24 14:22] LABS: Appearance Urine Clear; Color Urine Yellow; Glucose Urine UA Negative (Negative); Leukocyte Esterase Urine Trace (Negative); Nitrite Urine Negative (Negative); UMIC TRIGGER UACC YES; Urine Blood Negative (Negative); Urine Ketones 15 mg/dL (Negative); Urine Protein Negative (Neg-Trace)
[2022-11-24 14:27] LABS: Bacteria Urine 1+ (None Seen); Hyaline Casts Urine 0-2 /LPF (0-2); RBC Urine 0-2 /HPF (0-2); WBC Urine 0-5 /HPF (0-5)
[2022-11-24 14:30] LABS: Amphetamine Screen Urine Not Detected (Not Detect); Barbiturates, Urine Not Detected (Not Detect); Benzodiazepines Screen Urine Not Detected (Not Detect); Cannabinoid Screen Urine POSITIVE (Not Detect); Cocaine Screen Urine Not Detected (Not Detect); Fentanyl, urine Not Detected (Not Detect); Opiate Screen Urine Not Detected (Not Detect); Phencyclidine Screen Urine Not Detected (Not Detect)
[2022-11-24 14:38] LABS: UPreg QC Valid YES; Urine Pregnancy NEGATIVE (NEGATIVE)
[2022-11-24 14:39] LABS: Acetaminophen LAB < 17 mcg/mL (<30); Salicylate < 5.0 mg/dL (15-30)
[2022-11-24 14:42] LABS: Alanine Aminotransferase 7 U/L (0-31); Albumin Level 3.6 g/dL (3.5-5.0); Alkaline Phosphatase 38 U/L (39-117); Anion Gap 12 (12-20); Aspartate Amino Transferase 17 U/L (5-31); Bilirubin Total 0.4 mg/dL (0.0-1.0); Blood Urea Nitrogen 5 mg/dL (9-16); Calcium 9.1 mg/dL (8.4-10.2); Carbon Dioxide 22 mmol/L (22-29); Chloride 108 mmol/L (96-108); Creatinine Clr Calc Pharmacy 131.1; Estimated Glomerular Filt Rate > 60; Ethanol < 10 mg/dL; Glucose Random 114 mg/dL (60-115); Potassium 3.6 mmol/L (3.3-5.1); Sodium 138 mmol/L (135-145); Total Protein 6.7 g/dL (6.5-8.0)
[2022-11-24 15:16] LABS: MANUAL DIFF FLAG NO
[2022-11-24 15:18] LABS: Basophils Percent Auto 0.6 % (0-2); Eosinophils Percent Auto 0.2 % (0-4); Hematocrit 42.1 % (37.0-47.0); Hemoglobin 13.9 g/dl (12.0-16.0); Imm Gran Abs Auto 0.01 X10*3/uL (0.00-0.03); Imm Gran Pct Auto 0.2 % (0.0-0.4); Lymphocytes Absolute Auto 2.1 X10*3/uL (1.2-4.9); Lymphocytes Percent Auto 39.3 % (20-40); Mean Corpuscular Hemoglobin 30.9 pg (27.0-33.0); Mean Corpuscular Volume 93.6 fL (80.0-98.0); Mean Platelet Volume 10.4 fL (9.4-12.3); Monocytes Absolute Auto 0.4 X10*3/uL (0.1-1.2); Monocytes Percent Auto 6.9 % (2-11); Neutrophils Absolute Auto 2.8 x10*3/uL (2.0-8.3); Neutrophils Percent Auto 52.8 % (45-73); Platelet Count 195 X10*3/uL (160-400); Red Cell Distribution Width 11.9 % (11.0-16.0); White Blood Count 5.2 X10*3/uL (4.8-10.8)
[2022-11-24 15:28] LABS: Valproate 65.2 mcg/mL (50.0-100.0)
[2022-11-25] MEDS: Divalproex Sodium ER 500 MG TAB.ER.24H 1500 MG PO ×2 (03:03→22:46)
[2022-11-25] MEDS: traZODone HCL 100 MG TABLET PO (03:03)
[2022-11-25] MEDS: Mirtazapine 15 MG TABLET PO ×2 (03:04→22:46)
[2022-11-25 06:04] VITALS: BP 99/66; PULSE 74; RESP 15; TEMP 36.4; O2SAT 99
--- NOTE | 2022-11-25 06:51 | PC.NURSE ---
Patient slept through the night, no distress observed/reported, compliant with medication, behavior non concerning, care consult ordered/pending evaluation, VSS, labs completed/resulted, will continue to monitor.
[2022-11-25] MEDS: Perphenazine 4 MG TABLET PO (09:04)
--- NOTE | 2022-11-25 09:27 | PC.NURSE ---
meeting with care team at this time
--- NOTE | 2022-11-25 11:55 | MHC.CARE ---
patient is an inpatient bed search. Placement pending.
[2022-11-25 13:35] VITALS: RESP 20
[2022-11-25] MEDS: diphenhydrAMINE HCL 50 MG/ML VIAL IM (13:35)
[2022-11-25] MEDS: LORazepam 2 MG/ML VIAL IM (13:35)
[2022-11-25] MEDS: Haloperidol Lactate 5 MG/ML VIAL IM (13:35)
--- NOTE | 2022-11-25 13:48 | PC.NURSE ---
Lauren began to yell at a staff member after being redirected to stop giving other patients medical advice. She then began to display increased agitation and when asked to take space in her room she spit in the staff members face from her doorway and security was called to assist. Lauren was given the option to take PO medications and requested IM's be given instead. ordered Haldol 5mg Lorazepam 2mg and Benadryl 50mg IM to her L deltoid. IM's given at 1335.
[2022-11-25 13:50] VITALS: BP 101/55; PULSE 56; RESP 18; RESP 20; TEMP 36.5; O2SAT 99
[2022-11-25 14:05] VITALS: RESP 18
[2022-11-25 14:07] VITALS: BP 101/55; PULSE 56; RESP 16; TEMP 36.5; O2SAT 99
[2022-11-25 14:12] LABS: COVID-19 Test Negative (Negative); IDNOW Serial# BCCEAD1C
--- NOTE | 2022-11-25 18:28 | ECG_ITS ---
Test Reason : check for prolong qt Blood Pressure : / mmHG Vent. Rate : 070 BPM Atrial Rate : 070 BPM P-R Int : 168 ms QRS Dur : 076 ms QT Int : 404 ms P-R-T Axes : 072 080 070 degrees QTc Int : 436 ms Normal sinus rhythm Normal ECG When compared with ECG of 25-OCT-2022 12:34, No significant change was found Referred By: Chuckie Villaseñor Electronically Signed By:Jun Chamberlain
[2022-11-25 20:33] VITALS: BP 95/53; PULSE 91; RESP 16; TEMP 36.8; O2SAT 97
[2022-11-25] MEDS: Perphenazine 2 MG TABLET 6 MG PO (22:51)
[2022-11-26] VITALS: BP 103/61; PULSE 83; RESP 18; TEMP 36.1; O2SAT 100
[2022-11-26] MEDS: traZODone HCL 100 MG TABLET PO ×2 (00:13→22:01)
--- NOTE | 2022-11-26 02:06 | PC.NURSE ---
Patient is a 22 year old female admitted to unit on CV at midnight. PT was previously on M5 a few weeks ago for todd and has a history of multiple IPLOC. Patient self presented to [facility] reporting hearing/ seeing lizard people who are wanting her to hurt other people. PT was medically restrained in [facility] POD due to yelling at and spitting on staff. PT has hx of bipolar with todd and eating D/O with binging and purging, hx self harm. PT did not present with any paranoid delusions during admission process. PT denies SI/HI/AH/VH at this time, VSS, placed on 15 minute safety checks, treatment plan and safety tool started. Tox screen positive for THC and COVID screen negative. PT is in bed resting at this time.
--- NOTE | 2022-11-26 04:20 | PC.NURSE ---
Pt signed a 3 day notice on 11/26/22. up on Wednesday12/01/22.
[2022-11-26] MEDS: hydrOXYzine HCL 25 MG TABLET PO (04:31)
--- NOTE | 2022-11-26 04:54 | PC.NURSE ---
PT ASKED TO SPEAK WITH STAFF PRIVATELY. WHEN SPEAKING WITH RN, PT DISCLOSED THAT SHE LIED AND MADE UP HER STATEMENTS REGARDING DELUSIONS AND HALLUCINATIONS TO GET READMITTED TO THE UNIT. PT REPORTS HAVING CONTACT AFTER HER RECENT DC WITH A PEER WHO WAS DISCHARGED YESTERDAY. THE PT DID NOT KNOW HER PEER WAS DISCHARGED SO SHE LIED TO GET ADMITTED AND SEE HER.
[2022-11-26 06:00] VITALS: BP 116/60; PULSE 95; RESP 16
[2022-11-26] MEDS: Perphenazine 4 MG TABLET PO ×3 (08:19→13:51)
[2022-11-26 09:52] LABS: Alanine Aminotransferase 9 U/L (0-31); Albumin Level 4.2 g/dL (3.5-5.0); Alkaline Phosphatase 50 U/L (39-117); Anion Gap 12 (12-20); Aspartate Amino Transferase 25 U/L (5-31); Bilirubin Total 0.2 mg/dL (0.0-1.0); Blood Urea Nitrogen 5 mg/dL (9-16); Calcium 9.7 mg/dL (8.4-10.2); Carbon Dioxide 26 mmol/L (22-29); Chloride 105 mmol/L (96-108); Cholesterol 152 mg/dL; Creatinine Clr Calc Pharmacy 123.3; Estimated Glomerular Filt Rate > 60; Glucose Fasting 80 mg/dL (60-99); HDL Cholesterol 45 mg/dL; LDL Cholesterol Calculated 92 mg/dl; Potassium 4.3 mmol/L (3.3-5.1); Sodium 139 mmol/L (135-145); Total Protein 7.4 g/dL (6.5-8.0); Triglycerides 76 mg/dL
[2022-11-26 09:53] LABS: Valproate 70.6 mcg/mL (50.0-100.0)
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
[2022-11-26] MEDS: Nicotine Polacrilex 2 MG GUM 4 MG BUCCAL ×5 (12:05→22:02)
[2022-11-26] MEDS: cloNIDine HCL 0.1 MG TABLET PO (13:25)
[2022-11-26] MEDS: ARIPiprazole 15 MG TABLET PO (13:51)
[2022-11-26 17:35] VITALS: BP 106/64; PULSE 94; TEMP 36; O2SAT 100
[2022-11-26] MEDS: Divalproex Sodium ER 500 MG TAB.ER.24H 1500 MG PO (20:38)
[2022-11-26] MEDS: Lithium Carbonate ER 300 MG TABLET.ER PO (20:38)
[2022-11-26] MEDS: Perphenazine 2 MG TABLET 6 MG PO (20:38)
[2022-11-27] MEDS: Nicotine Polacrilex 2 MG GUM 4 MG BUCCAL ×6 (08:07→21:29)
[2022-11-27] MEDS: ARIPiprazole 15 MG TABLET PO (08:07)
[2022-11-27] MEDS: Perphenazine 4 MG TABLET PO ×2 (08:07→14:16)
[2022-11-27 09:09] VITALS: BP 101/57; PULSE 93; RESP 18; TEMP 36.6; O2SAT 100
--- NOTE | 2022-11-27 09:20 | P.PNPSI_ITS ---
Subjective Subjective Date of Service: 11/27/22 Reason For Visit: Psychosis Subjective Notes: Conditional Voluntary Interim History: Pt reports feeling neutral, not too bad, not too good. Pt states lithium is working great, I'm not moving as much after she took first dose. Pt denies SI/HI. She reports sleep is very well. She presents as hyperverbal but not pressured with some flight of ideas. No significant irritability. Visible on the unit, attends groups. She reports she likes coming to the hospital because she has luxuries she does not have at home such as clean towels or toilet paper. No aggression towards self or others. She is taking medications as prescribed. No side effects reported or noted. Singing loud at times but able to be redirected. Per team- pt had sex on unit last week- doing test. Medication Compliance: Yes Side effects from medications: No Attending Groups: Yes Mental Status Exam Mental Status Exam Narrative: Appearance: casually groomed, good hygine, in NAD Behavior: cooperative Psychomotor: no agitation or retardation noted Speech: clear, normal rate/rhythm/volume, spontaneous TP: tangential, no loose associations. TC: feeling better, likes hospital Mood: neutral SI: none HI: none VH/AH: none Delusions: none Insight/judgment: fair x 2. Memory/cog: alert, oriented x 3. grossly intact to conversational testing. Diagnostics Vital Signs (24Hr): Vital Signs - 24 hr 11/26/22 17:35 11/27/22 09:09 Temperature 96.8 F 97.8 F Pulse Rate 94 93 Respiratory Rate 18 Blood Pressure 106/64 101/57 L Pulse Oximetry 100 100 Oxygen Delivery Method Room Air Room Air BMI result Body Mass Index 23.4 Labs 11/24/22 15:07 11/26/22 08:18 Labs: Laboratory Results - last 48 hr 11/25/22 11/26/22 11/26/22 13:22 08:18 08:18 Sodium 139 Potassium 4.3 Chloride 105 Carbon Dioxide 26 Anion Gap 12 BUN 5 L Creatinine 0.67 Estim Creat Clear Calc 123.3 Estimated GFR > 60 Fasting Glucose 80 Calcium 9.7 D Total Bilirubin 0.2 AST 25 ALT 9 Alkaline Phosphatase 50 Total Protein 7.4 Albumin 4.2 Triglycerides 76 Cholesterol 152 LDL Cholesterol, Calc 92 HDL Cholesterol 45 Valproic Acid 70.6 COVID-19 (SIENNA) Negative COVID-19 Clin Com See Note Medications Medications Current Medications Acetaminophen (Acetaminophen 325 Mg Tablet) 650 mg PO Q6H PRN PRN Reason: Headache/Pain Mild Scale (1-3) Al Hydroxide/Mg Hydroxide (Magnesium Hydrox/Alum Hydrox 30 Ml Oral.Susp) 30 ml PO Q6H PRN PRN Reason: Heartburn/Nausea Aripiprazole (Aripiprazole 15 Mg Tablet) 15 mg PO DAILY [facility] Last Admin: 11/27/22 08:07 Dose: 15 mg Clonidine HCl (Clonidine Hcl 0.1 Mg Tablet) 0.1 mg PO Q4H PRN; Protocol PRN Reason: Anxiety/insomnia Divalproex Sodium (Divalproex Sodium Er 500 Mg Tab.Er.24h) 1,500 mg PO BEDTIME [place] Last Admin: 11/26/22 20:38 Dose: 1,500 mg Hydroxyzine HCl (Hydroxyzine Hcl 25 Mg Tablet) 25 mg PO Q6H PRN PRN Reason: Anxiety Last Admin: 11/26/22 04:31 Dose: 25 mg [place] Carbonate ([place] Carbonate Er 300 Mg Tablet.Er) 300 mg PO BEDTIME [place] Last Admin: 11/26/22 20:38 Dose: 300 mg Magnesium Hydroxide (Milk Of Magnesia 30 Ml Oral.Susp) 30 ml PO DAILY PRN PRN Reason: Constipation Nicotine Polacrilex (Nicotine Polacrilex 2 Mg Gum) 4 mg BUCCAL Q2H PRN PRN Reason: nicotine cravings Last Admin: 11/27/22 08:07 Dose: 4 mg Perphenazine (Perphenazine 4 Mg Tablet) 4 mg PO BID@0900,1500 [facility] Last Admin: 11/27/22 08:07 Dose: 4 mg Perphenazine (Perphenazine 4 Mg Tablet) 4 mg PO Q6H PRN PRN Reason: Psychosis Last Admin: 11/26/22 09:21 Dose: 4 mg Perphenazine (Perphenazine 2 Mg Tablet) 6 mg PO BEDTIME [place] Last Admin: 11/26/22 20:38 Dose: 6 mg Trazodone HCl (Trazodone Hcl 100 Mg Tablet) 100 mg PO BEDTIME PRN PRN Reason: insomnia Last Admin: 11/26/22 22:01 Dose: 100 mg Allergies Allergies Allergy/AdvReac Type Severity Reaction Status Date / Time insect venom [MOSQUITO] Allergy Unknown UNKNOWN Verified 03/09/22 18:01 paliperidone [From INVEGA] Allergy Unknown DYSTONIC Verified 03/09/22 18:01 REACTION haloperidol [HALOPERIDOL] AdvReac Intermediate Dystonic Verified 03/09/22 18:01 reaction Assessment & Plan Assessment & Plan (1) Bipolar 1 disorder: Status: Acute Code(s): F31.9 - Bipolar disorder, unspecified (2) Chronic post-traumatic stress disorder (PTSD): Status: Acute Code(s): F43.12 - Post-traumatic stress disorder, chronic Plan Patient is 22-year-old female with history of bipolar disorder, PTSD, multiple psychiatric admissions including several past months, who returns for continued manic symptoms and AVH. Surprisingly Depakote level WNL and this admission she is a little more able to stay on topic but still is with rambling, pressured speech, mood lability, some grandiose ideas and intermittent insight. Patient endorses AVH and some mild paranoid/delusional thoughts, getting messages from songs... Agrees to add lithium Patient reports that she was hypersexual at her last admission and engaged in activity with a male peer which she regrets Impression/plan Patient with similar presentation as in other admissions: manic, labile, friendly but with a propensity to get agitated. She reports she got Abilify Maintena; will restart p.o. Abilify as it is not clear she was continuing with this overlap while an outpatient; will also continue outpatient perphenazine regimen for now Patient agreed to retry lithium. She said was helpful in the past but that it made her gain weight. She is willing to try it if it stays at a low dose. Outpatient staff were nor well say they have never really seen her other than at least hypomanic; perhaps combination of Depakote and a little bit of lithium could help her calm down. Overall plan would be to use Abilify which comes in long-acting injectable, and taper off perphenazine Plan: CV Q 5 minute checks: Patient history of being hypersexual on the unit; she remains vulnerable to predation Start Abilify 15 mg daily; p.o. Abilify is supposed to overlap Abilify Maintena for 2 weeks; no clear indication that she has been doing this Need to confirm patient did in fact get Abilify Maintena Continue Depakote ER 1500 mg; level WNL START lithium ER 300 mg q.h.s.; hopefully with to traditional mood stabilizers, patient's todd can finally subside Continue outpatient regimen for perphenazine at this time. Hopefully can taper Gather collateral *does not want to go back to mothers; wants senior living 11/27- continue current medications. test due to report that she had sex on unit with peer few weeks ago. Reason for continued inpatient stay Substantial Risk for: inability to function Time Spent With Patient Time: Total time managing care of this patient today ____ minutes.
[2022-11-27 10:55] LABS: HCG Quantitative < 2 mIU/mL
[2022-11-27 22:14] VITALS: BP 100/56; PULSE 79; RESP 18; TEMP 36.2
[2022-11-27] MEDS: Perphenazine 2 MG TABLET 6 MG PO (22:15)
[2022-11-27] MEDS: Divalproex Sodium ER 500 MG TAB.ER.24H 1500 MG PO (22:15)
[2022-11-27] MEDS: Lithium Carbonate ER 300 MG TABLET.ER PO (22:15)
[2022-11-27] MEDS: traZODone HCL 100 MG TABLET PO (23:01)
[2022-11-28 08:15] VITALS: BP 115/56; PULSE 89; RESP 18; TEMP 35.6; O2SAT 97
[2022-11-28] MEDS: Nicotine Polacrilex 2 MG GUM 4 MG BUCCAL ×4 (08:32→20:02)
[2022-11-28] MEDS: ARIPiprazole 15 MG TABLET PO (08:32)
[2022-11-28] MEDS: Perphenazine 4 MG TABLET PO ×3 (08:32→14:07)
[2022-11-28] MEDS: cloNIDine HCL 0.1 MG TABLET PO (10:51)
--- NOTE | 2022-11-28 14:46 | HO.PSYCHPN ---
Subjective Subjective Date of Service: 11/28/22 Reason For Visit: Psychosis Interim History: Pt seen and discussed. I am feeling a lot better. Still hypomanic. Pressured speech and flight of ideas continue. She is restless. Says she is using skills she learned like body scanning. and stopping to manage her racing thoughts. She denies SI. Says she got 6 hours of sleep which is really good for her. No significant irritability. Visible on the unit, attends groups. RN team reported some increased talkativeness with sexualized content. Redirectable. No aggression towards self or others. She is taking medications as prescribed. No side effects reported or noted. Continues on 5 minute checks with locked bathroom. Review of Systems Review of Systems Yes all other systems are reviewed and are negative Constitutional: Reports headache(s) Reports headache(s) Reports headache(s) Psychiatric: Reports no additional psychiatric complaints, Reports auditory hallucinations, Reports paranoia, Reports visual hallucinations, Reports hallucinations, Reports homicidal ideation and Reports suicidal ideation Mental Status Exam Mental Status Exam Narrative: Appearance: casually groomed, good hygine, in NAD Behavior: cooperative Psychomotor: no agitation or retardation noted Speech: clear, normal rate/rhythm/volume, spontaneous TP: tangential, no loose associations. TC: feeling better, likes hospital Mood: neutral SI: none HI: none VH/AH: none Delusions: none Insight/judgment: fair x 2. Memory/cog: alert, oriented x 3. grossly intact to conversational testing. Diagnostics Vital Signs (24Hr): Vital Signs - 24 hr 11/27/22 22:14 11/28/22 08:15 Temperature 97.2 F 96.1 F L Pulse Rate 79 89 Respiratory Rate 18 18 Blood Pressure 100/56 L 115/56 L Pulse Oximetry 97 Oxygen Delivery Method Room Air BMI result Body Mass Index 23.4 Labs 11/24/22 15:07 11/26/22 08:18 Labs: Laboratory Results - last 48 hr 11/27/22 10:21 Beta HCG, Quant < 2 Medications Medications Current Medications Acetaminophen (Acetaminophen 325 Mg Tablet) 650 mg PO Q6H PRN PRN Reason: Headache/Pain Mild Scale (1-3) Al Hydroxide/Mg Hydroxide (Magnesium Hydrox/Alum Hydrox 30 Ml Oral.Susp) 30 ml PO Q6H PRN PRN Reason: Heartburn/Nausea Aripiprazole (Aripiprazole 15 Mg Tablet) 15 mg PO DAILY [facility] Last Admin: 11/28/22 08:32 Dose: 15 mg Clonidine HCl (Clonidine Hcl 0.1 Mg Tablet) 0.1 mg PO Q4H PRN; Protocol PRN Reason: Anxiety/insomnia Last Admin: 11/28/22 10:51 Dose: 0.1 mg Divalproex Sodium (Divalproex Sodium Er 500 Mg Tab.Er.24h) 1,500 mg PO BEDTIME [facility] Last Admin: 11/27/22 22:15 Dose: 1,500 mg Hydroxyzine HCl (Hydroxyzine Hcl 25 Mg Tablet) 25 mg PO Q6H PRN PRN Reason: Anxiety Last Admin: 11/26/22 04:31 Dose: 25 mg [place] Carbonate ([place] Carbonate Er 300 Mg Tablet.Er) 300 mg PO BEDTIME [facility] Last Admin: 11/27/22 22:15 Dose: 300 mg Magnesium Hydroxide (Milk Of Magnesia 30 Ml Oral.Susp) 30 ml PO DAILY PRN PRN Reason: Constipation Nicotine Polacrilex (Nicotine Polacrilex 2 Mg Gum) 4 mg BUCCAL Q2H PRN PRN Reason: nicotine cravings Last Admin: 11/28/22 13:36 Dose: 4 mg Perphenazine (Perphenazine 4 Mg Tablet) 4 mg PO BID@0900,1500 [facility] Last Admin: 11/28/22 14:07 Dose: 4 mg Perphenazine (Perphenazine 4 Mg Tablet) 4 mg PO Q6H PRN PRN Reason: Psychosis Last Admin: 11/28/22 10:51 Dose: 4 mg Perphenazine (Perphenazine 2 Mg Tablet) 6 mg PO BEDTIME [facility] Last Admin: 11/27/22 22:15 Dose: 6 mg Trazodone HCl (Trazodone Hcl 100 Mg Tablet) 100 mg PO BEDTIME PRN PRN Reason: insomnia Last Admin: 11/27/22 23:01 Dose: 100 mg Allergies Allergies Allergy/AdvReac Type Severity Reaction Status Date / Time insect venom [MOSQUITO] Allergy Unknown UNKNOWN Verified 03/09/22 18:01 paliperidone [From INVEGA] Allergy Unknown DYSTONIC Verified 03/09/22 18:01 REACTION haloperidol [HALOPERIDOL] AdvReac Intermediate Dystonic Verified 03/09/22 18:01 reaction Assessment & Plan Assessment & Plan (1) Bipolar 1 disorder: Status: Acute Code(s): F31.9 - Bipolar disorder, unspecified (2) Chronic post-traumatic stress disorder (PTSD): Status: Acute Code(s): F43.12 - Post-traumatic stress disorder, chronic Plan Patient is 22-year-old female with history of bipolar disorder, PTSD, multiple psychiatric admissions including several past months, who returns for continued manic symptoms and AVH. Surprisingly Depakote level WNL and this admission she is a little more able to stay on topic but still is with rambling, pressured speech, mood lability, some grandiose ideas and intermittent insight. Patient endorses AVH and some mild paranoid/delusional thoughts, getting messages from songs... Agrees to add lithium Patient reports that she was hypersexual at her last admission and engaged in activity with a male peer which she regrets Impression/plan Patient with similar presentation as in other admissions: manic, labile, friendly but with a propensity to get agitated. She reports she got Abilify Maintena; will restart p.o. Abilify as it is not clear she was continuing with this overlap while an outpatient; will also continue outpatient perphenazine regimen for now Patient agreed to retry lithium. She said was helpful in the past but that it made her gain weight. She is willing to try it if it stays at a low dose. Outpatient staff were nor well say they have never really seen her other than at least hypomanic; perhaps combination of Depakote and a little bit of lithium could help her calm down. Overall plan would be to use Abilify which comes in long-acting injectable, and taper off perphenazine Plan: CV Q 5 minute checks: Patient history of being hypersexual on the unit; she remains vulnerable to predation Start Abilify 15 mg daily; p.o. Abilify is supposed to overlap Abilify Maintena for 2 weeks; no clear indication that she has been doing this Need to confirm patient did in fact get Abilify Maintena Continue Depakote ER 1500 mg; level WNL START lithium ER 300 mg q.h.s.; hopefully with to traditional mood stabilizers, patient's todd can finally subside Continue outpatient regimen for perphenazine at this time. Hopefully can taper Gather collateral *does not want to go back to mothers; wants fpc 11/27- continue current medications. test due to report that she had sex on unit with peer few weeks ago. 11/28: Continue current treatment plan. Li level 11/30 Reason for continued inpatient stay Substantial Risk for: inability to function and rapid decompensation Time Spent With Patient Time: Total time managing care of this patient today ____ minutes.
[2022-11-28] MEDS: Lithium Carbonate ER 300 MG TABLET.ER PO (22:06)
[2022-11-28] MEDS: Divalproex Sodium ER 500 MG TAB.ER.24H 1500 MG PO (22:06)
[2022-11-28] MEDS: Perphenazine 2 MG TABLET 6 MG PO (22:06)
[2022-11-28] MEDS: traZODone HCL 100 MG TABLET PO (22:07)
[2022-11-28 22:13] VITALS: BP 112/68; PULSE 82; RESP 16; TEMP 36.2; O2SAT 98
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
[2022-11-29 11:10] VITALS: BP 107/62; PULSE 86; RESP 16; TEMP 36.9; O2SAT 98
[2022-11-29] MEDS: Perphenazine 4 MG TABLET PO ×2 (11:13→14:12)
[2022-11-29] MEDS: ARIPiprazole 15 MG TABLET PO (11:13)
[2022-11-29] MEDS: Nicotine Polacrilex 2 MG GUM 4 MG BUCCAL ×4 (11:13→21:03)
[2022-11-29] MEDS: cloNIDine HCL 0.1 MG TABLET PO (17:30)
[2022-11-29] MEDS: Lithium Carbonate ER 300 MG TABLET.ER PO (22:12)
[2022-11-29] MEDS: Divalproex Sodium ER 500 MG TAB.ER.24H 1500 MG PO (22:12)
[2022-11-29] MEDS: Perphenazine 2 MG TABLET 6 MG PO (22:12)
[2022-11-29 22:17] VITALS: BP 97/54; PULSE 83; RESP 18; TEMP 36.1; O2SAT 99
[2022-11-29] MEDS: traZODone HCL 100 MG TABLET PO (23:04)
[2022-11-30] MEDS: ARIPiprazole 15 MG TABLET PO (08:14)
[2022-11-30] MEDS: Perphenazine 4 MG TABLET PO ×2 (08:14→14:56)
[2022-11-30 08:55] VITALS: BP 104/57; PULSE 72; RESP 20; TEMP 36.2; O2SAT 98
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
[2022-11-30 09:19] LABS: Lithium 0.34 mmol/L (0.60-1.20)
[2022-11-30] MEDS: Nicotine Polacrilex 2 MG GUM 4 MG BUCCAL ×5 (09:20→23:21)
[2022-11-30 17:36] VITALS: BP 107/55; PULSE 75; RESP 18; TEMP 36.2; O2SAT 100
[2022-11-30] MEDS: Divalproex Sodium ER 500 MG TAB.ER.24H 1500 MG PO (23:16)
[2022-11-30] MEDS: traZODone HCL 100 MG TABLET PO (23:16)
[2022-11-30] MEDS: Perphenazine 2 MG TABLET 6 MG PO (23:16)
[2022-11-30] MEDS: Lithium Carbonate ER 300 MG TABLET.ER PO (23:16)
[2022-12-01] MEDS: Nicotine Polacrilex 2 MG GUM 4 MG BUCCAL ×2 (08:40→10:54)
[2022-12-01] MEDS: ARIPiprazole 15 MG TABLET PO (08:40)
[2022-12-01] MEDS: Perphenazine 4 MG TABLET PO (08:40)
[2022-12-01 09:00] VITALS: BP 103/69; PULSE 100; RESP 18; TEMP 36.2; O2SAT 98
[2022-12-01 09:12] LABS: Ammonia 31 umol/L (13-55)
[2022-12-01 09:20] LABS: Valproate 91.1 mcg/mL (50.0-100.0)
[2022-12-01 09:22] LABS: Alanine Aminotransferase 10 U/L (0-31); Albumin Level 4.3 g/dL (3.5-5.0); Alkaline Phosphatase 44 U/L (39-117); Anion Gap 10 (12-20); Aspartate Amino Transferase 16 U/L (5-31); Bilirubin Direct 0.2 mg/dL (0.0-0.5); Bilirubin Total 0.4 mg/dL (0.0-1.0); Blood Urea Nitrogen 5 mg/dL (9-16); Calcium 9.9 mg/dL (8.4-10.2); Carbon Dioxide 27 mmol/L (22-29); Chloride 106 mmol/L (96-108); Creatinine Clr Calc Pharmacy 111.6; Estimated Glomerular Filt Rate > 60; Glucose Random 104 mg/dL (60-115); Potassium 4.3 mmol/L (3.3-5.1); Sodium 139 mmol/L (135-145); Total Protein 7.5 g/dL (6.5-8.0)
--- NOTE | 2022-12-01 11:51 | P.DS_ITS ---
DS: Providers Provider Date of Service: 12/01/22 Date of admission: 11/25/22 23:45 Date of discharge: 12/01/22 Primary care physician: None Physician Attending physician on admission: Mario Aranda Attending physician on discharge: Mario Aranda DS: Diagnosis Discharge Diagnosis (1) Bipolar 1 disorder: Status: Acute (2) Chronic post-traumatic stress disorder (PTSD): Status: Acute DS: Medications Discharge Medications Home Medications: Previous Rx's Medication Instructions Recorded aripiprazole 400 mg intramuscular 400 mg IM QMONTH 30 days #1 ea 11/17/22 suspension,extended release (Abilify Maintena) aripiprazole 15 mg tablet 15 mg PO DAILY 14 days #14 tabs 12/01/22 clonidine HCl 0.1 mg tablet 0.1 mg PO Q4H PRN Anxiety 30 days 12/01/22 #90 tabs divalproex 500 mg tablet,extended 1,500 mg PO BEDTIME 30 days #90 12/01/22 release 24 hr tabs lithium carbonate 300 mg 300 mg PO BEDTIME 30 days #30 tabs 12/01/22 tablet,extended release nicotine (polacrilex) 4 mg gum 4 mg buccal Q2H PRN nicotine 12/01/22 cravings 30 days #110 ea perphenazine 4 mg tablet 4 mg PO DAILY PRN agitation 30 12/01/22 days #30 tabs perphenazine 4 mg tablet 4 mg PO TID 30 days #90 tabs 12/01/22 trazodone 100 mg tablet 100 mg PO BEDTIME PRN insomnia 30 12/01/22 days #30 tabs Mental Status Exam Mental Status Exam Narrative: Pt is alert and oriented; behavior is hypo-manic/manic, friendly, cooperative, not intrusive; patient is not in distress; dressed in casual attire with close cropped hair, adequately, groomed; mood is described as good yet affect expansive but less so; not labile; eye contact appropriate; Speech is moderately pressured but she is able to be interrupted; normal volume and prosody; no psychomotor agitation; thought process is mostly goal directed, but can also be circumstantial; however remains relevant; Thought content is mostly on treatment; no expressed delusional thinking; no SI; no HI. There is no evidence of perceptual disturbance and denies AVH; Patients insight and judgment are impaired but significantly improved, baseline and adequate Data Data Completed and Pending Completed studies during hospitalization [Text1]: 11/24/22 11/24/22 11/24/22 14:00 14:00 14:00 WBC RBC Hgb Hct MCV MCH MCHC RDW Plt Count MPV Immature Gran % (Auto) Neut % (Auto) Lymph % (Auto) [place] % (Auto) Eos % (Auto) Baso % (Auto) Lymph # (Auto) [place] # (Auto) Eos # (Auto) Baso # (Auto) Abs Immat Gran (auto) Absolute Neuts (auto) Absolute Nucleated RBC Nucleated RBC % (auto) Sodium Potassium Chloride Carbon Dioxide Anion Gap BUN Creatinine Estim Creat Clear Calc Estimated GFR Random Glucose Fasting Glucose Calcium Total Bilirubin Direct Bilirubin AST ALT Alkaline Phosphatase Ammonia Total Protein Albumin Triglycerides Cholesterol LDL Cholesterol, Calc HDL Cholesterol Beta HCG, Quant Urine Color Yellow Urine Appearance Clear Urine pH 7.0 Ur Specific [place] 1.010 Urine Protein Negative Urine Glucose (UA) Negative Urine Ketones 15 Urine Blood Negative Urine Nitrite Negative Ur Leukocyte Esterase Trace H Urine RBC 0-2 Urine WBC 0-5 Ur Squamous Epith Cells 11-20 Urine Bacteria 1+ Hyaline Casts 0-2 Urine Test NEGATIVE Salicylates Urine Opiates Screen Not Detected Urine Fentanyl Screen Not Detected Acetaminophen Ur Barbiturates Screen Not Detected Valproic Acid Ur Phencyclidine Scrn Not Detected Ur Amphetamines Screen Not Detected U Benzodiazepines Scrn Not Detected [place] Urine Cocaine Screen Not Detected U Marijuana (THC) Screen POSITIVE H Ethyl Alcohol COVID-19 ([facility]) COVID-19 Clin Com 11/24/22 11/24/22 11/24/22 14:11 14:11 15:07 WBC 5.2 RBC 4.50 Hgb 13.9 Hct 42.1 MCV 93.6 MCH 30.9 MCHC 33.0 RDW 11.9 Plt Count 195 MPV 10.4 Immature Gran % (Auto) 0.2 Neut % (Auto) 52.8 Lymph % (Auto) 39.3 [place] % (Auto) 6.9 Eos % (Auto) 0.2 Baso % (Auto) 0.6 Lymph # (Auto) 2.1 [place] # (Auto) 0.4 Eos # (Auto) 0.0 Baso # (Auto) 0.0 Abs Immat Gran (auto) 0.01 Absolute Neuts (auto) 2.8 Absolute Nucleated RBC 0.000 Nucleated RBC % (auto) 0.0 Sodium 138 Potassium 3.6 Chloride 108 Carbon Dioxide 22 Anion Gap 12 BUN 5 L Creatinine 0.63 Estim Creat Clear Calc 131.1 Estimated GFR > 60 Random Glucose 114 Fasting Glucose Calcium 9.1 D Total Bilirubin 0.4 Direct Bilirubin AST 17 ALT 7 Alkaline Phosphatase 38 L Ammonia Total Protein 6.7 Albumin 3.6 Triglycerides Cholesterol LDL Cholesterol, Calc HDL Cholesterol Beta HCG, Quant Urine Color Urine Appearance Urine pH Ur Specific [place] Urine Protein Urine Glucose (UA) Urine Ketones Urine Blood Urine Nitrite Ur Leukocyte Esterase Urine RBC Urine WBC Ur Squamous Epith Cells Urine Bacteria Hyaline Casts Urine Test Salicylates < 5.0 L Urine Opiates Screen Urine Fentanyl Screen Acetaminophen < 17 Ur Barbiturates Screen Valproic Acid Ur Phencyclidine Scrn Ur Amphetamines Screen U Benzodiazepines Scrn [place] Urine Cocaine Screen U Marijuana (THC) Screen Ethyl Alcohol < 10 COVID-19 ([facility]) COVID-19 [employer] Com 11/24/22 11/25/22 11/26/22 15:07 13:22 08:18 WBC RBC Hgb Hct MCV MCH MCHC RDW Plt Count MPV Immature Gran % (Auto) Neut % (Auto) Lymph % (Auto) [place] % (Auto) Eos % (Auto) Baso % (Auto) Lymph # (Auto) [place] # (Auto) Eos # (Auto) Baso # (Auto) Abs Immat Gran (auto) Absolute Neuts (auto) Absolute Nucleated RBC Nucleated RBC % (auto) Sodium 139 Potassium 4.3 Chloride 105 Carbon Dioxide 26 Anion Gap 12 BUN 5 L Creatinine 0.67 Estim Creat Clear Calc 123.3 Estimated GFR > 60 Random Glucose Fasting Glucose 80 Calcium 9.7 D Total Bilirubin 0.2 Direct Bilirubin AST 25 ALT 9 Alkaline Phosphatase 50 Ammonia Total Protein 7.4 Albumin 4.2 Triglycerides 76 Cholesterol 152 LDL Cholesterol, Calc 92 HDL Cholesterol 45 Beta HCG, Quant Urine Color Urine Appearance Urine pH Ur Specific [place] Urine Protein Urine Glucose (UA) Urine Ketones Urine Blood Urine Nitrite Ur Leukocyte Esterase Urine RBC Urine WBC Ur Squamous Epith Cells Urine Bacteria Hyaline Casts Urine Test Salicylates Urine Opiates Screen Urine Fentanyl Screen Acetaminophen Ur Barbiturates Screen Valproic Acid 65.2 Ur Phencyclidine Scrn Ur Amphetamines Screen U Benzodiazepines Scrn [place] Urine Cocaine Screen U Marijuana (THC) Screen Ethyl Alcohol COVID-19 ([facility]) Negative COVID-19 Clin Com See Note 11/26/22 11/27/22 11/30/22 08:18 10:21 08:24 WBC RBC Hgb Hct MCV MCH MCHC RDW Plt Count MPV Immature Gran % (Auto) Neut % (Auto) Lymph % (Auto) [place] % (Auto) Eos % (Auto) Baso % (Auto) Lymph # (Auto) [place] # (Auto) Eos # (Auto) Baso # (Auto) Abs Immat Gran (auto) Absolute Neuts (auto) Absolute Nucleated RBC Nucleated RBC % (auto) Sodium Potassium Chloride Carbon Dioxide Anion Gap BUN Creatinine Estim Creat Clear Calc Estimated GFR Random Glucose Fasting Glucose Calcium Total Bilirubin Direct Bilirubin AST ALT Alkaline Phosphatase Ammonia Total Protein Albumin Triglycerides Cholesterol LDL Cholesterol, Calc HDL Cholesterol Beta HCG, Quant < 2 Urine Color Urine Appearance Urine pH Ur Specific [place] Urine Protein Urine Glucose (UA) Urine Ketones Urine Blood Urine Nitrite Ur Leukocyte Esterase Urine RBC Urine WBC Ur Squamous Epith Cells Urine Bacteria Hyaline Casts Urine Test Salicylates Urine Opiates Screen Urine Fentanyl Screen Acetaminophen Ur Barbiturates Screen Valproic Acid 70.6 Ur Phencyclidine Scrn Ur Amphetamines Screen U Benzodiazepines Scrn [place] 0.34 L Urine Cocaine Screen U Marijuana (THC) Screen Ethyl Alcohol COVID-19 ([facility]) COVID-19 Clin Com 12/01/22 12/01/22 12/01/22 08:38 08:38 08:38 WBC RBC Hgb Hct MCV MCH MCHC RDW Plt Count MPV Immature Gran % (Auto) Neut % (Auto) Lymph % (Auto) [place] % (Auto) Eos % (Auto) Baso % (Auto) Lymph # (Auto) [place] # (Auto) Eos # (Auto) Baso # (Auto) Abs Immat Gran (auto) Absolute Neuts (auto) Absolute Nucleated RBC Nucleated RBC % (auto) Sodium 139 Potassium 4.3 Chloride 106 Carbon Dioxide 27 Anion Gap 10 L BUN 5 L Creatinine 0.74 Estim Creat Clear Calc 111.6 Estimated GFR > 60 Random Glucose 104 Fasting Glucose Calcium 9.9 Total Bilirubin 0.4 Direct Bilirubin 0.2 AST 16 ALT 10 Alkaline Phosphatase 44 Ammonia 31 Total Protein 7.5 Albumin 4.3 Triglycerides Cholesterol LDL Cholesterol, Calc HDL Cholesterol Beta HCG, Quant Urine Color Urine Appearance Urine pH Ur Specific [place] Urine Protein Urine Glucose (UA) Urine Ketones Urine Blood Urine Nitrite Ur Leukocyte Esterase Urine RBC Urine WBC Ur Squamous Epith Cells Urine Bacteria Hyaline Casts Urine Test Salicylates Urine Opiates Screen Urine Fentanyl Screen Acetaminophen Ur Barbiturates Screen Valproic Acid 91.1 Ur Phencyclidine Scrn Ur Amphetamines Screen U Benzodiazepines Scrn [place] Urine Cocaine Screen U Marijuana (THC) Screen Ethyl Alcohol COVID-19 ([facility]) COVID-19 Clin Com DS: Summary Hospital Course Hospital Course: Patient is 22-year-old female with history of bipolar disorder, PTSD, multiple psychiatric admissions including several past months, who returns for continued manic symptoms and AVH.? On admission pt was manic and hypersexual but not agitated or irritable and with only minimal and dissipating paranoid delusions. Pt's improved symptoms likely due to her compliance with depakote in the community, as Depakote level WNL on admission; she is much more able to stay on topic. Pt reports she did receive Abilify Maintenna in the community. Pt discussed medications with maturity and agreed to restart [place] to good effect. Restarted Abilify since seems possible/likely pt did not overlap Maintenna with PO abilify. Pt remained with hypomanic behaviors and hypersexual however, she was aware of this and was able to keep herself in control. Pt signed 3 day notice with plans to return family (ultimately went to mothers). Three day came due and patient wants to discharge feeling she cannot tolerate being on the unit for several weeks, the time it would take for her to get into a halfway. Reports medications are helping and that she will continue taking them.? No AVH; no expressed delusional thinking; no SI or HI.? While she remains vulnerable to decompensation and has a long history of non medication adherence, she is doing much better and continues to have extensive outpatient support already in place.? Patient is not in imminent risk for harm to self or others and request for discharge honored. Time spent discussing smoking cessation with patient: 3 to 10 minutes Time Spent with Patient Time attestation: Total time managing care of this patient today ____ minutes. Discharge Plan Discharge Anticipated Discharge Date/Time: 12/01/22 11:30 Patient Disposition: Home, Self-Care Discharge Diagnosis: Bipolar I disorder, severe, recurrent, most recent episode manic, with psychotic symptoms in partial remission Referrals: [facility] [Other] - 1 Week Discharge Medications: New aripiprazole 15 mg Tablet 15 mg PO DAILY 14 Days Qty: 14 0RF lithium carbonate 300 mg Tablet Extended Release 300 mg PO BEDTIME 30 Days Qty: 30 0RF Continued Abilify Maintena 400 mg suspension,extended rel recon 400 mg IM QMONTH 30 Days Qty: 1 0RF Patient Comments: Reports she took 11/19 Rx Instructions: to be administered cayla trazodone 100 mg tablet 100 mg PO BEDTIME PRN (Reason: insomnia) 30 Days Qty: 30 1RF nicotine (polacrilex) 4 mg gum 4 mg buccal Q2H PRN (Reason: nicotine cravings) 30 Days Qty: 110 1RF divalproex 500 mg Tablet Extended Release 24 Hr 1,500 mg PO BEDTIME 30 Days Qty: 90 1RF Changed clonidine HCl 0.1 mg tablet 0.1 mg PO Q4H PRN (Reason: Anxiety) 30 Days Qty: 90 1RF perphenazine 4 mg Tablet 4 mg PO TID 30 Days Qty: 90 0RF Rx Instructions: take at 9am, 3pm and 9pm perphenazine 4 mg tablet 4 mg PO DAILY PRN (Reason: agitation) 30 Days Qty: 30 0RF Discontinued mirtazapine 15 mg tablet 15 mg PO BEDTIME Discharge Orders: Discharge Order (Routine); Ordered 12/01/22 Ordered By: Mario Aranda Diet: Regular diet Activity on Discharge: As tolerated Stand Alone Forms: Patient Portal Discharge page, Community Support Care Plan Goals: Maintain mood and safe behaviors Take medications as prescribed Practice coping skills Continue with outpatient providers and reach out to them as needed Health Concerns: Mood stability and behaviors Cannabis abuse Plan of Treatment: Follow up with your PCP, psychiatric provider and other outpatient providers regarding above concerns Take medications as prescribed Assessment: Risk assessment at time of discharge:? Patient was interviewed prior to discharge and found to be fully oriented and without any SI or HI. Patient has insight and demonstrates good judgment in terms of wanting to pursue treatment. Patient is not in imminent risk of harm to self or others and has a safety plan that includes presenting to the closest ER or calling 911 if feeling unsafe.? Patient has been observed closely by nursing and unit staff throughout admission; patient has not engaged in any behaviors that suggest dangerousness to self or others and has demonstrated appropriate behaviors and impulse control Discharge Date/Time: 12/01/22 12:57
== END 2022-12-01 12:57 | disposition home or self-care (01) | DRG 753 ==
LOC: HO.ED 15:40 → HO.PM5 11-25 23:47
PROVIDERS: Clinical Nurse Specialist Psychiatric/Mental Health, Adult; Physician Assistant; Admitting Provider Psychiatry & Neurology Psychiatry; Emergency Provider Emergency Medicine; Visit Provider Psychiatry & Neurology Psychiatry
DX: F31.2 Bipolar disorder, current episode manic severe with psychotic features (principal); R45.851 Suicidal ideations; F17.210 Nicotine dependence, cigarettes, uncomplicated; Z20.822 Contact with and (suspected) exposure to COVID-19; Z71.6 Tobacco abuse counseling; Z91.52 Personal history of nonsuicidal self-harm; Z79.899 Other long term (current) drug therapy
CPT/HCPCS: 36415; 80048; 80053; 80061; 80076; 80143; 80164; 80178; 80179; 80307; 81001; 81025; 82140; 84702; 85025; 87635; 93005; 99285; J1200; J2060; S9485

== ENCOUNTER → 2022-11-25 18:28 | Outpatient (BNV) | payer MEDICAID, SELFPAY | PROVIDERS: Admitting Provider Psychiatry & Neurology Psychiatry; Emergency Provider Emergency Medicine; Visit Provider Internal Medicine Cardiovascular Disease | DX: I45.81 Long QT syndrome (principal) | CPT/HCPCS: 93010 ==

== ENCOUNTER → 2022-11-25 23:45 | Outpatient (BNV) | payer OTHER, SELFPAY | PROVIDERS: Admitting Provider Psychiatry & Neurology Psychiatry; Emergency Provider Emergency Medicine; Visit Provider Psychiatry & Neurology Psychiatry | DX: F31.2 Bipolar disorder, current episode manic severe with psychotic features (principal); F43.12 Post-traumatic stress disorder, chronic | CPT/HCPCS: 99231; 99232 ==

== ENCOUNTER 2022-12-06 17:42 | Inpatient (IN) | payer OTHER, MEDICAID, SELFPAY ==
[2022-12-06 17:55] VITALS: BP 108/68; BP 91/59; PULSE 80; PULSE 87; RESP 16; O2SAT 100; O2SAT 98; BMI 24.2
--- NOTE | 2022-12-06 18:31 | ED_ITS ---
HPI - Psych General Chief Complaint: Psychiatric Symptoms Stated Complaint: Psych Time Seen by Provider: 12/06/22 18:16 Source: patient Mode of arrival: ambulatory History of Present Illness HPI Narrative: 22 yold female with pmh of schizophrenia presenta to the ED for arguing family members and stating she no longer wants to live there and will like to go to respite. patient denies any suicidal/homicidal ideation. Patient states compl iant with meds and her therapits. Related Data Previous Rx's Medication Instructions Recorded aripiprazole 400 mg intramuscular 400 mg IM QMONTH 30 days #1 ea 11/17/22 suspension,extended release (Abilify Maintena) aripiprazole 15 mg tablet 15 mg PO DAILY 14 days #14 tabs 12/01/22 clonidine HCl 0.1 mg tablet 0.1 mg PO Q4H PRN Anxiety 30 days 12/01/22 #90 tabs divalproex 500 mg tablet,extended 1,500 mg PO BEDTIME 30 days #90 12/01/22 release 24 hr tabs lithium carbonate 300 mg 300 mg PO BEDTIME 30 days #30 tabs 12/01/22 tablet,extended release nicotine (polacrilex) 4 mg gum 4 mg buccal Q2H PRN nicotine 12/01/22 cravings 30 days #110 ea perphenazine 4 mg tablet 4 mg PO DAILY PRN agitation 30 12/01/22 days #30 tabs perphenazine 4 mg tablet 4 mg PO TID 30 days #90 tabs 12/01/22 trazodone 100 mg tablet 100 mg PO BEDTIME PRN insomnia 30 12/01/22 days #30 tabs Allergies Allergy/AdvReac Type Severity Reaction Status Date / Time insect venom [MOSQUITO] Allergy Unknown UNKNOWN Verified 12/06/22 18:37 paliperidone [From INVEGA] Allergy Unknown DYSTONIC Verified 12/06/22 18:37 REACTION haloperidol [HALOPERIDOL] AdvReac Intermediate Dystonic Verified 12/06/22 18:37 reaction Review of Systems 2 Review of Systems: Agression Yes all other systems are reviewed and are negative PMFSH Past Medical History Medical History Anxiety Bipolar 1 disorder Bipolar disorder Depression Social History Social History Household Members: Family Household Members Other:: Resides at [facility] currently Housing: Apartment Do you presently have visiting nurse or other home services: No Alcohol intake: never Patient Tobacco Use Status: Current everyday Tobacco user Tobacco use type: Cigarette Cigarettes Per Day: 7 Years Smoked: 2 years e-Cigarette/Vaping Use: Former Use Second Hand Smoke Exposure: No Substance Use Type: Marijuana Advance Directives: No Advance Directives Information Provided: Yes Healthcare Proxy: No Guardian: No Patient : No service: No Sexual orientation: Pansexual Physical Exam Vital Signs: Vital Signs: Last Vital Signs Temp 97 F 12/06/22 22:00 Pulse 97 12/06/22 22:00 Resp 16 12/06/22 22:00 BP 99/57 L 12/06/22 22:00 Pulse Ox 96 12/06/22 22:00 O2 Del Method Room Air 12/06/22 22:00 BMI result Body Mass Index 24.2 Const: General: cooperative, healthy appearing, comfortable, no acute distress, well developed, alert, awake and Physically active Orientation/consciousness: oriented to person, oriented to place, oriented to time and patient oriented x3 HEENT: Head: Yes normal to inspection, Yes No palpable skull fracture present, Yes normocephalic, Yes atraumatic and No abrasion Ears: hearing grossly n ormal bilaterally, external ears normal, TM's normal bilaterally, TM normal on the right, TM normal on the left, EAC's normal, mastoids normal and no periauricular adenopathy Eyes: General: appearance normal, both eyes and all related structures Neck: Neck: Yes normal visual inspection, Yes full ROM, Yes no lymphadenopathy, Yes no meningeal signs, Yes trachea midline, Yes supple, No anterior neck swelling and No tender Chest: Chest palpation & inspection: normal inspection of the chest and normal palpation of entire chest wall Resp: Effort & Inspection: normal respiratory effort and able to speak in complete sentences Auscultation: clear to auscultation bilaterally Cardio: Jugular venous distension: no JVD Heart sounds: S1 normal heart sound present and S2 normal heart sound present GI: Inspection: Yes normal to inspection and No abdominal wall ecchymosis Palpation (GI): Soft to palpation, not firm, nontender, no guarding and not rigid : General: No CVA tenderness and Yes no CVA tenderness Back/Spine/Pelvis: Back: no CVA tenderness, No CVA tenderness and No back tenderness Skin: General skin exam: no rashes or lesions noted and elasticity normal Neuro: General: oriented to person, oriented to place, oriented to time, patient oriented x3, gait normal, tone normal, moves all extremities, Normal light touch and pain sensation, no meningeal signs, no focal motor deficits, CN's II-XI intact bilaterally and normal sensation to monofilament Extrem: General: Yes normal to inspection and Yes full ROM Psych: Appearance: grossly normal, well kempt and not disheveled Medications Administered Generic Name Dose Route Start Last Admin Trade Name Freq PRN Reason Stop Dose Admin Clonidine HCl 0.1 mg 12/06/22 22:32 12/06/22 22:47 Clonidine Hcl 0.1 Mg Tablet PO 0.1 mg Q4H PRN Administration Anxiety Protocol Divalproex Sodium 1,500 mg 12/06/22 22:45 12/06/22 22:44 Divalproex Sodium Er 500 Mg Tab.Er.24h PO 1,500 mg BEDTIME GAVIOTA Administration [place] Carbonate 300 mg 12/06/22 22:45 12/06/22 22:45 [place] Carbonate Er 300 Mg Tablet.Er PO 300 mg BEDTIME GAVIOTA Administration Perphenazine 4 mg 12/06/22 22:45 12/06/22 22:45 Perphenazine 4 Mg Tablet PO 4 mg TID GAVIOTA Administration Trazodone HCl 100 mg 12/06/22 22:32 12/06/22 22:45 Trazodone Hcl 100 Mg Tablet PO 100 mg BEDTIME PRN Administration insomnia Medical Decision Making Medical Decision Making [facility] Narrative: 22-year-old female history of schizophrenia presents to ED for high volume with family members and like to be placed in a respite. Patient does not feel safe at home. Patient is not suicidal homicidal. Patient labs are normal. Patient evaluated by care team consulting Ranjit who states patient actually is decompensated and he recommends Section 12 for involuntary psych admission. Differential Diagnosis Differential Diagnoses: The differential diagnosis associated with the presentation includes (Schizophrenia, depression, suicidal, homicidal) Admission/Observation Consideration of admission/observation: Escalation of care including admi ssion/observation considered Consult Healthcare Provider Management of the patient was discussed with: Jury Consultant (Care TEam Ranjit) Lab Data [facility] Lab Attestation statement: I reviewed the patient's lab results. 12/06/22 18:15 12/06/22 18:15 Labs: Lab Results 12/06/22 12/06/22 12/06/22 Range/Units 18:15 18:15 19:06 WBC 7.4 (4.8-10.8) X10*3/uL RBC 4.11 L (4.20-5.50) X10*6/uL Hgb 12.9 (12.0-16.0) g/dl Hct 38.1 (37.0-47.0) % MCV 92.7 (80.0-98.0) fL MCH 31.4 (27.0-33.0) pg MCHC 33.9 (31.0-35.0) g/dl RDW 11.7 (11.0-16.0) % Plt Count 196 (160-400) X10*3/uL MPV 10.7 (9.4-12.3) fL Immature Gran % (Auto) 0.3 (0.0-0.4) % Neut % (Auto) 56.5 (45-73) % Lymph % (Auto) 33.3 (20-40) % [place] % (Auto) 8.7 (2-11) % Eos % (Auto) 0.5 (0-4) % Baso % (Auto) 0.7 (0-2) % Lymph # (Auto) 2.5 (1.2-4.9) X10*3/uL [place] # (Auto) 0.7 (0.1-1.2) X10*3/uL Eos # (Auto) 0.0 (0.0-0.4) X10*3/uL Baso # (Auto) 0.1 (0.0-0.2) X10*3/uL Abs Immat Gran (auto) 0.02 (0.00-0.03) X10*3/uL Absolute Neuts (auto) 4.2 (2.0-8.3) x10*3/uL Absolute Nucleated RBC 0.000 (0.0-0.012) X10*3/uL Nucleated RBC % (auto) 0.0 (0.0-0.2) /100WBC Sodium 137 (135-145) mmol/L Potassium 4.2 (3.3-5.1) mmol/L Chloride 105 (96-108) mmol/L Carbon Dioxide 21 L (22-29) mmol/L Anion Gap 15 (12-20) BUN 8 L (9-16) mg/dL Creatinine 0.74 (0.5-1.4) mg/dL Estim Creat Clear Calc 111.6 Estimated GFR > 60 Random Glucose 85 (60-115) mg/dL Calcium 9.7 (8.4-10.2) mg/dL Total Bilirubin 0.4 (0.0-1.0) mg/dL AST 14 (5-31) U/L ALT 8 (0-31) U/L Alkaline Phosphatase 41 (39-117) U/L Total Protein 6.9 (6.5-8.0) g/dL Albumin 4.0 (3.5-5.0) g/dL Urine Color Yellow Urine Appearance Cloudy Urine pH 7.5 (5.0-9.0) Ur Specific [place] 1.010 (1.005-1.025) Urine Protein Negative (Neg-Trace) mg/dL Urine Glucose (UA) Negative (Negative) mg/dL Urine Ketones Negative (Negative) mg/dL Urine Blood Negative (Negative) Urine Nitrite Negative (Negative) Ur Leukocyte Esterase Moderate (2+) H (Negative) Urine RBC 0-2 (0-2) /HPF Urine WBC 6-10 H (0-5) /HPF Ur Squamous Epith Cells 11-20 (0-2) /HPF Urine Bacteria 1+ (None Seen) Hyaline Casts 0-2 (0-2) /LPF Urine Test (NEGATIVE) Urine Opiates Screen (Not Detect) Urine Fentanyl Screen (Not Detect) Ur Barbiturates Screen (Not Detect) Valproic Acid (50.0-100.0) mcg/mL Ur Phencyclidine Scrn (Not Detect) Ur Amphetamines Screen (Not Detect) U Benzodiazepines Scrn (Not Detect) [place] (0.60-1.20) mmol/L Urine Cocaine Screen (Not Detect) U Marijuana (THC) Screen (Not Detect) Ethyl Alcohol < 10 mg/dL 12/06/22 12/06/22 12/06/22 Range/Units 19:06 19:06 19:24 WBC (4.8-10.8) X10*3/uL RBC (4.20-5.50) X10*6/uL Hgb (12.0-16.0) g/dl Hct (37.0-47.0) % MCV (80.0-98.0) fL MCH (27.0-33.0) pg MCHC (31.0-35.0) g/dl RDW (11.0-16.0) % Plt Count (160-400) X10*3/uL MPV (9.4-12.3) fL Immature Gran % (Auto) (0.0-0.4) % Neut % (Auto) (45-73) % Lymph % (Auto) (20-40) % [place] % (Auto) (2-11) % Eos % (Auto) (0-4) % Baso % (Auto) (0-2) % Lymph # (Auto) (1.2-4.9) X10*3/uL [place] # (Auto) (0.1-1.2) X10*3/uL Eos # (Auto) (0.0-0.4) X10*3/uL Baso # (Auto) (0.0-0.2) X10*3/uL Abs Immat Gran (auto) (0.00-0.03) X10*3/uL Absolute Neuts (auto) (2.0-8.3) x10*3/uL Absolute Nucleated RBC (0.0-0.012) X10*3/uL Nucleated RBC % (auto) (0.0-0.2) /100WBC Sodium (135-145) mmol/L Potassium (3.3-5.1) mmol/L Chloride (96-108) mmol/L Carbon Dioxide (22-29) mmol/L Anion Gap (12-20) BUN (9-16) mg/dL Creatinine (0.5-1.4) mg/dL Estim Creat Clear Calc Estimated GFR Random Glucose (60-115) mg/dL Calcium (8.4-10.2) mg/dL Total Bilirubin (0.0-1.0) mg/dL AST (5-31) U/L ALT (0-31) U/L Alkaline Phosphatase (39-117) U/L Total Protein (6.5-8.0) g/dL Albumin (3.5-5.0) g/dL Urine Color Urine Appearance Urine pH (5.0-9.0) Ur Specific [place] (1.005-1.025) Urine Protein (Neg-Trace) mg/dL Urine Glucose (UA) (Negative) mg/dL Urine Ketones (Negative) mg/dL Urine Blood (Negative) Urine Nitrite (Negative) Ur Leukocyte Esterase (Negative) Urine RBC (0-2) /HPF Urine WBC (0-5) /HPF Ur Squamous Epith Cells (0-2) /HPF Urine Bacteria (None Seen) Hyaline Casts (0-2) /LPF Urine Test NEGATIVE (NEGATIVE) Urine Opiates Screen Not Detected (Not Detect) Urine Fentanyl Screen Not Detected (Not Detect) Ur Barbiturates Screen Not Detected (Not Detect) Valproic Acid 69.2 (50.0-100.0) mcg/mL Ur Phencyclidine Scrn Not Detected (Not Detect) Ur Amphetamines Screen Not Detected (Not Detect) U Benzodiazepines Scrn Not Detected (Not Detect) [place] (0.60-1.20) mmol/L Urine Cocaine Screen Not Detected (Not Detect) U Marijuana (THC) Screen POSITIVE H (Not Detect) Ethyl Alcohol mg/dL 12/06/22 Range/Units 19:24 WBC (4.8-10.8) X10*3/uL RBC (4.20-5.50) X10*6/uL Hgb (12.0-16.0) g/dl Hct (37.0-47.0) % MCV (80.0-98.0) fL MCH (27.0-33.0) pg MCHC (31.0-35.0) g/dl RDW (11.0-16.0) % Plt Count (160-400) X10*3/uL MPV (9.4-12.3) fL Immature Gran % (Auto) (0.0-0.4) % Neut % (Auto) (45-73) % Lymph % (Auto) (20-40) % [place] % (Auto) (2-11) % Eos % (Auto) (0-4) % Baso % (Auto) (0-2) % Lymph # (Auto) (1.2-4.9) X10*3/uL [place] # (Auto) (0.1-1.2) X10*3/uL Eos # (Auto) (0.0-0.4) X10*3/uL Baso # (Auto) (0.0-0.2) X10*3/uL Abs Immat Gran (auto) (0.00-0.03) X10*3/uL Absolute Neuts (auto) (2.0-8.3) x10*3/uL Absolute Nucleated RBC (0.0-0.012) X10*3/uL Nucleated RBC % (auto) (0.0-0.2) /100WBC Sodium (135-145) mmol/L Potassium (3.3-5.1) mmol/L Chloride (96-108) mmol/L Carbon Dioxide (22-29) mmol/L Anion Gap (12-20) BUN (9-16) mg/dL Creatinine (0.5-1.4) mg/dL Estim Creat Clear Calc Estimated GFR Random Glucose (60-115) mg/dL Calcium (8.4-10.2) mg/dL Total Bilirubin (0.0-1.0) mg/dL AST (5-31) U/L ALT (0-31) U/L Alkaline Phosphatase (39-117) U/L Total Protein (6.5-8.0) g/dL Albumin (3.5-5.0) g/dL Urine Color Urine Appearance Urine pH (5.0-9.0) Ur Specific [place] (1.005-1.025) Urine Protein (Neg-Trace) mg/dL Urine Glucose (UA) (Negative) mg/dL Urine Ketones (Negative) mg/dL Urine Blood (Negative) Urine Nitrite (Negative) Ur Leukocyte Esterase (Negative) Urine RBC (0-2) /HPF Urine WBC (0-5) /HPF Ur Squamous Epith Cells (0-2) /HPF Urine Bacteria (None Seen) Hyaline Casts (0-2) /LPF Urine Test (NEGATIVE) Urine Opiates Screen (Not Detect) Urine Fentanyl Screen (Not Detect) Ur Barbiturates Screen (Not Detect) Valproic Acid (50.0-100.0) mcg/mL Ur Phencyclidine Scrn (Not Detect) Ur Amphetamines Screen (Not Detect) U Benzodiazepines Scrn (Not Detect) [place] 0.28 L (0.60-1.20) mmol/L Urine Cocaine Screen (Not Detect) U Marijuana (THC) Screen (Not Detect) Ethyl Alcohol mg/dL Independent Historian Clinical information obtained from an independent historian. History obtained from or confirmed by: EMS External Record Review External record reviewed: Other (Prior ED visits. ) Discharge Plan Discharge Clinical Impression: Chronic schizophrenia Patient Disposition: Still a Patient Prescriptions: No Action Abilify Maintena 400 mg suspension,extended rel recon 400 mg IM QMONTH 30 Days Qty: 1 0RF Patient Comments: Reports she took 11/19 Rx Instructions: to be administered cayla aripiprazole 15 mg Tablet 15 mg PO DAILY 14 Days Qty: 14 0RF lithium carbonate 300 mg Tablet Extended Release 300 mg PO BEDTIME 30 Days Qty: 30 0RF clonidine HCl 0.1 mg tablet 0.1 mg PO Q4H PRN (Reason: Anxiety) 30 Days Qty: 90 1RF trazodone 100 mg tablet 100 mg PO BEDTIME PRN (Reason: insomnia) 30 Days Qty: 30 1RF nicotine (polacrilex) 4 mg gum 4 mg buccal Q2H PRN (Reason: nicotine cravings) 30 Days Qty: 110 1RF divalproex 500 mg Tablet Extended Release 24 Hr 1,500 mg PO BEDTIME 30 Days Qty: 90 1RF perphenazine 4 mg Tablet 4 mg PO TID 30 Days Qty: 90 0RF Rx Instructions: take at 9am, 3pm and 9pm perphenazine 4 mg tablet 4 mg PO DAILY PRN (Reason: agitation) 30 Days Qty: 30 0RF Interventions: [place]-Suicide Risk Severity Scale Last Done: 12/06/22 18:43
[2022-12-06 19:02] LABS: MANUAL DIFF FLAG NO
[2022-12-06 19:17] LABS: UPreg QC Valid YES; Urine Pregnancy NEGATIVE (NEGATIVE)
[2022-12-06 19:19] LABS: Appearance Urine Cloudy; Color Urine Yellow; Glucose Urine UA Negative (Negative); Leukocyte Esterase Urine Moderate (2+) (Negative); Nitrite Urine Negative (Negative); PH 7.5 (5.0-9.0); UMIC TRIGGER UACC YES; Urine Blood Negative (Negative); Urine Ketones Negative (Negative); Urine Protein Negative (Neg-Trace)
[2022-12-06 19:22] LABS: Basophils Absolute Auto 0.1 X10*3/uL (0.0-0.2); Basophils Percent Auto 0.7 % (0-2); Eosinophils Percent Auto 0.5 % (0-4); Hematocrit 38.1 % (37.0-47.0); Hemoglobin 12.9 g/dl (12.0-16.0); Imm Gran Abs Auto 0.02 X10*3/uL (0.00-0.03); Imm Gran Pct Auto 0.3 % (0.0-0.4); Lymphocytes Absolute Auto 2.5 X10*3/uL (1.2-4.9); Lymphocytes Percent Auto 33.3 % (20-40); Mean Corpuscular HGB Conc 33.9 g/dl (31.0-35.0); Mean Corpuscular Hemoglobin 31.4 pg (27.0-33.0); Mean Corpuscular Volume 92.7 fL (80.0-98.0); Mean Platelet Volume 10.7 fL (9.4-12.3); Monocytes Absolute Auto 0.7 X10*3/uL (0.1-1.2); Monocytes Percent Auto 8.7 % (2-11); Neutrophils Absolute Auto 4.2 x10*3/uL (2.0-8.3); Neutrophils Percent Auto 56.5 % (45-73); Platelet Count 196 X10*3/uL (160-400); Red Blood Count 4.11 X10*6/uL (4.20-5.50); Red Cell Distribution Width 11.7 % (11.0-16.0); White Blood Count 7.4 X10*3/uL (4.8-10.8)
[2022-12-06 19:35] LABS: Amphetamine Screen Urine Not Detected (Not Detect); Barbiturates, Urine Not Detected (Not Detect); Benzodiazepines Screen Urine Not Detected (Not Detect); Cannabinoid Screen Urine POSITIVE (Not Detect); Cocaine Screen Urine Not Detected (Not Detect); Fentanyl, urine Not Detected (Not Detect); Opiate Screen Urine Not Detected (Not Detect); Phencyclidine Screen Urine Not Detected (Not Detect)
[2022-12-06 19:43] LABS: Lithium 0.28 mmol/L (0.60-1.20)
[2022-12-06 19:48] LABS: Alanine Aminotransferase 8 U/L (0-31); Alkaline Phosphatase 41 U/L (39-117); Anion Gap 15 (12-20); Aspartate Amino Transferase 14 U/L (5-31); Bilirubin Total 0.4 mg/dL (0.0-1.0); Blood Urea Nitrogen 8 mg/dL (9-16); Calcium 9.7 mg/dL (8.4-10.2); Carbon Dioxide 21 mmol/L (22-29); Chloride 105 mmol/L (96-108); Creatinine Clr Calc Pharmacy 111.6; Estimated Glomerular Filt Rate > 60; Ethanol < 10 mg/dL; Glucose Random 85 mg/dL (60-115); Potassium 4.2 mmol/L (3.3-5.1); Sodium 137 mmol/L (135-145); Total Protein 6.9 g/dL (6.5-8.0)
[2022-12-06 19:48] LABS: Valproate 69.2 mcg/mL (50.0-100.0)
[2022-12-06 19:54] LABS: Bacteria Urine 1+ (None Seen); Hyaline Casts Urine 0-2 /LPF (0-2); RBC Urine 0-2 /HPF (0-2); UACC Culture Trigger YES
--- NOTE | 2022-12-06 21:33 | PC.NURSE ---
Pt came out of her room stating she wanted to go home. Pt called her mom and got very upset. Pt yelled that she was leaving, and ran into her room. I went in to speak with her, and was able to deescalate verbally. Pt spoke with me calmly about her family and her distrust of the government. Pt was relaxed, calm, and cooperative when I left her side. CARE team then spoke with the pt, she is now taking a shower and will be staying the night. She requested benadryl, hydroxyzine, or ativan to help with some anxiety.
[2022-12-06 22:00] VITALS: BP 99/57; PULSE 97; RESP 16; TEMP 36.1; O2SAT 96
[2022-12-06] MEDS: Divalproex Sodium ER 500 MG TAB.ER.24H 1500 MG PO (22:44)
[2022-12-06] MEDS: Perphenazine 4 MG TABLET PO (22:45)
[2022-12-06] MEDS: Lithium Carbonate ER 300 MG TABLET.ER PO (22:45)
[2022-12-06] MEDS: traZODone HCL 100 MG TABLET PO (22:45)
[2022-12-06] MEDS: cloNIDine HCL 0.1 MG TABLET PO (22:47)
[2022-12-07] MEDS: Perphenazine 4 MG TABLET PO ×4 (02:48→20:07)
[2022-12-07 02:53] VITALS: BP 100/62; PULSE 75; RESP 16; TEMP 37.1; O2SAT 97
--- NOTE | 2022-12-07 03:13 | PC.NURSE ---
Pt is having a hard time sleeping, continues to come up to nurse's station with racing thoughts and hyperverbal. Pt was given PRN medications, as requested and documented in JUL. Approx 20 min later, medications have no affect on the pt, she requested more clonidine. Pt's BP noted to be too low to give more clonidine, and this was explained to the pt. Pt verbalized understanding, was given crackers, ashu maddi, and a warm blanket, then moved to bed where she is resting now.
--- NOTE | 2022-12-07 07:25 | ECG_ITS ---
Test Reason : check qt interval Blood Pressure : / mmHG Vent. Rate : 080 BPM Atrial Rate : 080 BPM P-R Int : 172 ms QRS Dur : 072 ms QT Int : 352 ms P-R-T Axes : 069 077 075 degrees QTc Int : 405 ms Normal sinus rhythm Possible Left atrial enlargement Borderline ECG When compared with ECG of 25-NOV-2022 18:49, No significant change was found Referred By: Irvin Kumar Electronically Signed By:CEASAR VIVAS
[2022-12-07] MEDS: ARIPiprazole 15 MG TABLET PO (07:48)
[2022-12-07 08:01] LABS: COVID-19 Test Negative (Negative); IDNOW Serial# BCCEAD1C
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
[2022-12-07 10:19] VITALS: BP 91/54; PULSE 79; RESP 17; TEMP 36.6; O2SAT 98
[2022-12-07] MEDS: Nicotine Polacrilex 2 MG GUM 4 MG BUCCAL ×2 (14:34→23:18)
[2022-12-07 16:02] VITALS: BP 130/67; PULSE 86; RESP 18; TEMP 36.4; O2SAT 100
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
[2022-12-07 20:05] VITALS: BP 99/70; PULSE 102; RESP 18; TEMP 36.3; O2SAT 100
[2022-12-07] MEDS: Divalproex Sodium ER 500 MG TAB.ER.24H 1500 MG PO (20:07)
[2022-12-07] MEDS: Lithium Carbonate ER 300 MG TABLET.ER PO (20:07)
[2022-12-07 22:35] VITALS: BP 114/65; PULSE 97
[2022-12-07] MEDS: traZODone HCL 100 MG TABLET PO (22:41)
[2022-12-07] MEDS: cloNIDine HCL 0.1 MG TABLET PO (22:41)
[2022-12-07] MEDS: hydrOXYzine HCL 25 MG TABLET PO (23:16)
[2022-12-07] MEDS: Acetaminophen 325 MG TABLET 650 MG PO (23:16)
[2022-12-08] MEDS: Perphenazine 4 MG TABLET PO ×4 (05:19→22:04)
[2022-12-08 05:20] VITALS: BP 107/58; PULSE 104; RESP 18; TEMP 36.4
[2022-12-08] MEDS: Nicotine Polacrilex 2 MG GUM 4 MG BUCCAL ×5 (06:34→18:52)
[2022-12-08] MEDS: ARIPiprazole 15 MG TABLET PO (08:45)
[2022-12-08] MEDS: cloNIDine HCL 0.1 MG TABLET PO ×2 (09:15→20:15)
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
[2022-12-08 10:02] LABS: Alanine Aminotransferase 14 U/L (0-31); Albumin Level 4.1 g/dL (3.5-5.0); Alkaline Phosphatase 40 U/L (39-117); Anion Gap 14 (12-20); Aspartate Amino Transferase 20 U/L (5-31); Bilirubin Total 0.2 mg/dL (0.0-1.0); Blood Urea Nitrogen 7 mg/dL (9-16); Calcium 9.7 mg/dL (8.4-10.2); Carbon Dioxide 23 mmol/L (22-29); Chloride 104 mmol/L (96-108); Cholesterol 126 mg/dL; Creatinine Clr Calc Pharmacy 121.5; Estimated Glomerular Filt Rate > 60; Glucose Fasting 75 mg/dL (60-99); HDL Cholesterol 45 mg/dL; LDL Cholesterol Calculated 73 mg/dl; Potassium 4.5 mmol/L (3.3-5.1); Sodium 136 mmol/L (135-145); Triglycerides 43 mg/dL
[2022-12-08 10:23] LABS: Thyroid Stimulating Hormone 1.39 uIU/mL (0.32-4.0)
--- NOTE | 2022-12-08 14:00 | MHC.CLN ---
re: consult familiar with pot from previous admissions wt hx reveals: 68kg (12/06/22) 61kg 07/09/21 pt's with 11% significant wt gain x 1 year hx anorexia and binging/purging recommend adding nutrition supplements for increased kcals monitor po intake and weight closely
--- NOTE | 2022-12-08 18:47 | PC.NURSE ---
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 Patients room was changed.
--- NOTE | 2022-12-08 19:07 | PC.NURSE ---
Pt signed 3 day notice on 12/08/22.
[2022-12-08] MEDS: hydrOXYzine HCL 25 MG TABLET PO (20:15)
[2022-12-08 20:18] VITALS: BP 127/71; PULSE 102; TEMP 36.7; O2SAT 97
[2022-12-08] MEDS: traZODone HCL 100 MG TABLET PO (22:03)
[2022-12-08] MEDS: Divalproex Sodium ER 500 MG TAB.ER.24H 1500 MG PO (22:03)
[2022-12-08] MEDS: Lithium Carbonate ER 300 MG TABLET.ER PO (22:03)
[2022-12-08] MEDS: Acetaminophen 325 MG TABLET 650 MG PO (22:10)
[2022-12-09] MEDS: Perphenazine 4 MG TABLET PO ×5 (00:03→21:50)
--- NOTE | 2022-12-09 00:38 | PC.NURSE ---
retracted [address] on 12/08
[2022-12-09] MEDS: hydrOXYzine HCL 25 MG TABLET PO (03:36)
[2022-12-09] MEDS: Nicotine Polacrilex 2 MG GUM 4 MG BUCCAL ×4 (05:19→18:15)
[2022-12-09 08:30] VITALS: BP 114/64; PULSE 66; RESP 18; TEMP 36.2; O2SAT 98
[2022-12-09] MEDS: ARIPiprazole 15 MG TABLET PO (08:48)
--- NOTE | 2022-12-09 10:17 | HO.PSYCHPN ---
Subjective Subjective Date of Service: 12/09/22 Reason For Visit: psychosis Subjective Notes: Conditional Voluntary Interim History: Pt continues to present as hyperverbal, poor boundaries with male peers needing redirected. Per nursing, pt only slept 2 hrs last night. Today, pt asks if lithium can be increased- which seems appropriate. She also asks if ativan can be added while here on the unit for sleep. She denies SI/HI. Mental Status Exam Mental Status Exam Narrative: Appearance: casually groomed, fair hygiene, in NAD Behavior: cooperative, poor boundaries Speech: clear, hyperverbal, not pressured, spontaneous TP: linear TC: wanting to get better and be discharged soon Mood: good Affect expansive SI: denies HI: denies VH/AH: none Delusions: none Insight/judgment: fair x 2. Memory/cog: alert, oriented x 3. Diagnostics Vital Signs (24Hr): Vital Signs - 24 hr 12/08/22 20:18 12/09/22 08:30 Temperature 98.0 F 97.2 F Pulse Rate 102 H 66 Respiratory Rate 18 Blood Pressure 127/71 114/64 Pulse Oximetry 97 98 Oxygen Delivery Method Room Air Room Air BMI result Body Mass Index 24.2 Labs 12/06/22 18:15 12/08/22 08:54 Labs: Laboratory Results - last 48 hr 12/08/22 08:54 Sodium 136 Potassium 4.5 Chloride 104 Carbon Dioxide 23 Anion Gap 14 BUN 7 L Creatinine 0.68 Estim Creat Clear Calc 121.5 Estimated GFR > 60 Fasting Glucose 75 Calcium 9.7 Total Bilirubin 0.2 AST 20 ALT 14 Alkaline Phosphatase 40 Total Protein 7.0 Albumin 4.1 Triglycerides 43 Cholesterol 126 LDL Cholesterol, Calc 73 HDL Cholesterol 45 TSH 1.39 Medications Medications Current Medications Acetaminophen (Acetaminophen 325 Mg Tablet) 650 mg PO Q6H PRN PRN Reason: Headache/Pain Mild Scale (1-3) Last Admin: 12/08/22 22:10 Dose: 650 mg Al Hydroxide/Mg Hydroxide (Magnesium Hydrox/Alum Hydrox 30 Ml Oral.Susp) 30 ml PO Q6H PRN PRN Reason: Heartburn/Nausea Aripiprazole (Aripiprazole 15 Mg Tablet) 15 mg PO DAILY GAV[place] Last Admin: 12/09/22 08:48 Dose: 15 mg Clonidine HCl (Clonidine Hcl 0.1 Mg Tablet) 0.1 mg PO Q4H PRN; Protocol PRN Reason: Anxiety Last Admin: 12/08/22 20:15 Dose: 0.1 mg Divalproex Sodium (Divalproex Sodium Er 500 Mg Tab.Er.24h) 1,500 mg PO BEDTIME G[place] Last Admin: 12/08/22 22:03 Dose: 1,500 mg Hydroxyzine HCl (Hydroxyzine Hcl 25 Mg Tablet) 25 mg PO Q6H PRN PRN Reason: Anxiety Last Admin: 12/09/22 03:36 Dose: 25 mg [place] Carbonate ([place] Carbonate Er 450 Mg Tablet.Er) 900 mg PO BEDTIME [place] Magnesium Hydroxide (Milk Of Magnesia 30 Ml Oral.Susp) 30 ml PO DAILY PRN PRN Reason: Constipation Nicotine Polacrilex (Nicotine Polacrilex 2 Mg Gum) 4 mg BUCCAL Q2H PRN PRN Reason: nicotine cravings Last Admin: 12/09/22 05:19 Dose: 4 mg Non-Formulary Medication (Aripiprazole [Abilify Maintena]) 400 mg IM Q30D [place] Perphenazine (Perphenazine 4 Mg Tablet) 4 mg PO TID G[place] Last Admin: 12/09/22 08:48 Dose: 4 mg Perphenazine (Perphenazine 4 Mg Tablet) 4 mg PO DAILY PRN PRN Reason: agitation Last Admin: 12/09/22 00:03 Dose: 4 mg Trazodone HCl (Trazodone Hcl 100 Mg Tablet) 100 mg PO BEDTIME PRN PRN Reason: insomnia Last Admin: 12/08/22 22:03 Dose: 100 mg Allergies Allergies Allergy/AdvReac Type Severity Reaction Status Date / Time insect venom [MOSQUITO] Allergy Unknown UNKNOWN Verified 12/06/22 18:37 paliperidone [From INVEGA] Allergy Unknown DYSTONIC Verified 12/06/22 18:37 REACTION haloperidol [HALOPERIDOL] AdvReac Intermediate Dystonic Verified 12/06/22 18:37 reaction Assessment & Plan Assessment & Plan (1) Bipolar 1 disorder: Status: Acute Code(s): F31.9 - Bipolar disorder, unspecified (2) Chronic post-traumatic stress disorder (PTSD): Status: Acute Code(s): F43.12 - Post-traumatic stress disorder, chronic Plan Patient is a 22 year old female with hx of Bipolar D/O and PTSD, and was just discharged from on 12/01/22, who self presented to [facility] secondary to getting into an argument with her mother. Plan: CV 15 minute safety checks Continue home medications that she was DCd on. Referral for respite Referral for visiting nurse to help with medication compliance? 12/10- increase lithium to 900mg po qhs. Ondina Vega is pending- verify last dose. Added ativan 1mg po qhs Reason for continued inpatient stay Substantial Risk for: inability to function Time Spent With Patient Time: Total time managing care of this patient today ____ minutes.
[2022-12-09] MEDS: LORazepam 1 MG TABLET PO ×2 (10:52→22:55)
[2022-12-09] MEDS: Acetaminophen 325 MG TABLET 650 MG PO (17:01)
[2022-12-09] MEDS: Divalproex Sodium ER 500 MG TAB.ER.24H 1500 MG PO (20:33)
[2022-12-09] MEDS: Lithium Carbonate ER 450 MG TABLET.ER 900 MG PO (20:33)
[2022-12-09 21:40] VITALS: BP 110/56; PULSE 111; RESP 18; TEMP 36.7; O2SAT 100
[2022-12-09] MEDS: cloNIDine HCL 0.1 MG TABLET PO (21:50)
[2022-12-09] MEDS: Ondansetron ODT 4 MG TAB.RAPDIS TRANSLINGU (22:16)
[2022-12-09] MEDS: traZODone HCL 100 MG TABLET PO (22:55)
[2022-12-10] MEDS: hydrOXYzine HCL 25 MG TABLET PO ×2 (03:44→18:42)
[2022-12-10] MEDS: Acetaminophen 325 MG TABLET 650 MG PO (03:44)
[2022-12-10 07:00] VITALS: BMI 22.2
[2022-12-10 08:05] VITALS: BP 96/67; PULSE 104; RESP 18; TEMP 36.4; O2SAT 99
[2022-12-10] MEDS: Perphenazine 4 MG TABLET PO ×4 (08:33→20:35)
[2022-12-10] MEDS: ARIPiprazole 15 MG TABLET PO (08:33)
--- NOTE | 2022-12-10 09:51 | HO.PSYCHPN ---
Subjective Subjective Date of Service: 12/10/22 Reason For Visit: psychosis Subjective Notes: Conditional Voluntary Interim History: Reviewed in team and Dr. Juan. Patient reports feeling depression and anxiety have improved . Patient denies SI/HI. Pt reports auditory and visual hallucinations improving. Patient stated, I feel like my voices are settling down. They are just noises. I'm still seeing some shadows . Patient stated, I don't want you to change my medications or doses. I feel better than when I first came in here . Medication Compliance: Yes Side effects from medications: No Attending Groups: Yes Review of Systems Constitutional: Reports as per HPI Eyes: Reports as per HPI Reports as per HPI Cardiovascular: Reports as per HPI Respiratory: Reports as per HPI Gastrointestinal: Reports as per HPI Genitourinary: Reports as per HPI Musculoskeletal: Reports as per HPI Skin/Breast: Reports as per HPI Reports as per HPI Psychiatric: Reports as per HPI Endocrine: Reports as per HPI Hematologic/Lymphatic: Reports as per HPI Allergic/Immunologic: Reports as per HPI Mental Status Exam Mental Status Exam Narrative: Pt is alert and oriented; behavior is cooperative and calm; patient is not in distress; dressed in casual attire; mood is described as better ; eye contact appropriate; Speech is normal rate, volume and prosody and not pressured; no psychomotor agitation/retardation present; thought process is organized and goal directed; Thought content is on tx; otherwise pertinent to relevant topics and without any delusional content, paranoid ideations or grandiosity; denies any SI/HI. Reports auditory and visual hallucinations, but improving. Patients insight and judgment are poor but improving. Diagnostics Vital Signs (24Hr): Vital Signs - 24 hr 12/09/22 21:40 12/10/22 08:05 Temperature 98.1 F 97.6 F Pulse Rate 111 H 104 H Respiratory Rate 18 18 Blood Pressure 110/56 L 96/67 Pulse Oximetry 100 99 Oxygen Delivery Method Room Air Room Air BMI result Body Mass Index 24.2 Labs 12/06/22 18:15 12/08/22 08:54 Labs: Laboratory Results - last 48 hr 12/08/22 08:54 Sodium 136 Potassium 4.5 Chloride 104 Carbon Dioxide 23 Anion Gap 14 BUN 7 L Creatinine 0.68 Estim Creat Clear Calc 121.5 Estimated GFR > 60 Fasting Glucose 75 Calcium 9.7 Total Bilirubin 0.2 AST 20 ALT 14 Alkaline Phosphatase 40 Total Protein 7.0 Albumin 4.1 Triglycerides 43 Cholesterol 126 LDL Cholesterol, Calc 73 HDL Cholesterol 45 TSH 1.39 Medications Medications Current Medications Acetaminophen (Acetaminophen 325 Mg Tablet) 650 mg PO Q6H PRN PRN Reason: Headache/Pain Mild Scale (1-3) Last Admin: 12/10/22 03:44 Dose: 650 mg Al Hydroxide/Mg Hydroxide (Magnesium Hydrox/Alum Hydrox 30 Ml Oral.Susp) 30 ml PO Q6H PRN PRN Reason: Heartburn/Nausea Aripiprazole (Aripiprazole 15 Mg Tablet) 15 mg PO DAILY [place] Last Admin: 12/10/22 08:33 Dose: 15 mg Clonidine HCl (Clonidine Hcl 0.1 Mg Tablet) 0.1 mg PO Q4H PRN; Protocol PRN Reason: Anxiety Last Admin: 12/09/22 21:50 Dose: 0.1 mg Divalproex Sodium (Divalproex Sodium Er 500 Mg Tab.Er.24h) 1,500 mg PO BEDTIME G[place] Last Admin: 12/09/22 20:33 Dose: 1,500 mg Hydroxyzine HCl (Hydroxyzine Hcl 25 Mg Tablet) 25 mg PO Q6H PRN PRN Reason: Anxiety Last Admin: 12/10/22 03:44 Dose: 25 mg [place] Carbonate ([place] Carbonate Er 450 Mg Tablet.Er) 900 mg PO BEDTIME G[place] Last Admin: 12/09/22 20:33 Dose: 900 mg Lorazepam (Lorazepam 1 Mg Tablet) 1 mg PO BEDTIME [place] Last Admin: 12/09/22 22:55 Dose: 1 mg Magnesium Hydroxide (Milk Of Magnesia 30 Ml Oral.Susp) 30 ml PO DAILY PRN PRN Reason: Constipation Nicotine Polacrilex (Nicotine Polacrilex 2 Mg Gum) 4 mg BUCCAL Q2H PRN PRN Reason: nicotine cravings Last Admin: 12/09/22 18:15 Dose: 4 mg Non-Formulary Medication (Aripiprazole [Abiliherlinda Maintena]) 400 mg IM Q30D [facility] Perphenazine (Perphenazine 4 Mg Tablet) 4 mg PO TID [facility] Last Admin: 12/10/22 08:33 Dose: 4 mg Perphenazine (Perphenazine 4 Mg Tablet) 4 mg PO DAILY PRN PRN Reason: agitation Last Admin: 12/09/22 00:03 Dose: 4 mg Trazodone HCl (Trazodone Hcl 100 Mg Tablet) 100 mg PO BEDTIME PRN PRN Reason: insomnia Last Admin: 12/09/22 22:55 Dose: 100 mg Allergies Allergies Allergy/AdvReac Type Severity Reaction Status Date / Time insect venom [MOSQUITO] Allergy Unknown UNKNOWN Verified 12/06/22 18:37 paliperidone [From INVEGA] Allergy Unknown DYSTONIC Verified 12/06/22 18:37 REACTION haloperidol [HALOPERIDOL] AdvReac Intermediate Dystonic Verified 12/06/22 18:37 reaction Assessment & Plan Assessment & Plan (1) Bipolar 1 disorder: Status: Acute Code(s): F31.9 - Bipolar disorder, unspecified (2) Chronic post-traumatic stress disorder (PTSD): Status: Acute Code(s): F43.12 - Post-traumatic stress disorder, chronic Plan Patient is a 22 year old female with hx of Bipolar D/O and PTSD, and was just discharged from on 12/01/22, who self presented to [facility] secondary to getting into an argument with her mother. Plan: CV 15 minute safety checks Continue home medications that she was DCd on. Referral for respite Referral for visiting nurse to help with medication compliance? 12/09- increase lithium to 900mg po qhs. Abilify Maintana is pending- verify last dose. Added ativan 1mg po qhs 12/10: Pt reports feeling better since admission. Continues to report auditory and visual hallucinations however states they are decreasing. Pt states she does not want any medications changed. Denies SI/HI. Continue tx plan. Patient educated on: diagnosis, medication risk/benefits and therapeutic strategies Informed Consent: understands Reason for continued inpatient stay Substantial Risk for: med/psych decompensation Time Spent With Patient Time: Total time managing care of this patient today _30___ minutes.
[2022-12-10 13:36] LABS: Valproate 43.8 mcg/mL (50.0-100.0)
[2022-12-10 13:40] LABS: Alanine Aminotransferase 13 U/L (0-31); Albumin Level 4.2 g/dL (3.5-5.0); Alkaline Phosphatase 44 U/L (39-117); Aspartate Amino Transferase 19 U/L (5-31); Bilirubin Direct 0.1 mg/dL (0.0-0.5); Bilirubin Total 0.3 mg/dL (0.0-1.0); Total Protein 7.3 g/dL (6.5-8.0)
[2022-12-10 14:00] LABS: Ammonia 21 umol/L (13-55)
[2022-12-10] MEDS: Nicotine Polacrilex 2 MG GUM 4 MG BUCCAL ×5 (14:57→22:54)
[2022-12-10 18:00] VITALS: BP 92/55; PULSE 134; RESP 16; TEMP 36.6; O2SAT 99
--- NOTE | 2022-12-10 19:19 | PC.NURSE ---
Patient signed a 3 day, up on 12/15/22
[2022-12-10] MEDS: Lithium Carbonate ER 450 MG TABLET.ER 900 MG PO (20:35)
[2022-12-10] MEDS: Divalproex Sodium ER 500 MG TAB.ER.24H 1500 MG PO (20:35)
[2022-12-10] MEDS: LORazepam 1 MG TABLET PO (20:35)
[2022-12-11] MEDS: hydrOXYzine HCL 25 MG TABLET PO ×2 (03:50→10:43)
[2022-12-11] MEDS: Perphenazine 4 MG TABLET PO ×2 (03:51→08:01)
[2022-12-11 08:00] VITALS: BP 109/63; PULSE 111; TEMP 36.4; O2SAT 100
[2022-12-11] MEDS: ARIPiprazole 15 MG TABLET PO (08:01)
[2022-12-11] MEDS: Nicotine Polacrilex 2 MG GUM 4 MG BUCCAL ×6 (08:19→23:03)
[2022-12-11] MEDS: cloNIDine HCL 0.1 MG TABLET PO ×2 (11:56→18:51)
[2022-12-11] MEDS: Perphenazine 8 MG TABLET PO ×2 (14:02→21:14)
[2022-12-11] MEDS: LORazepam 1 MG TABLET 2 MG PO (14:02)
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
--- NOTE | 2022-12-11 16:21 | HO.PSYCHPN ---
Subjective Subjective Date of Service: 12/11/22 Reason For Visit: psychosis Subjective Notes: Conditional Voluntary Interim History: Pt continues to present hypersexual, very poor boundaries with peers. Pt reports she had romantic encounters with female peer. She denies any physical contact but reports that she was very upset because pt had many visits with her boyfriend. Pt reports peer was not treating me well, I can't be with her on the same unit. When asked about incident that occurred on M5, pt reports she had sex with man in his 40's Pt reports she agreed to go with him to room but reports she was not mentally right to make such decision. Pt reminded that this is hospital and not physical touch between pt or staff allowed. Pt agrees to increase lithium dose to 1200mg po qhs. Increase perphenazine 8mg po TID. pt on 5 minutes checks. other pt on one to one. Medication Compliance: Yes Side effects from medications: No Review of Systems Review of Systems Agression Yes all other systems are reviewed and are negative Constitutional: Reports as per HPI Eyes: Reports as per HPI Reports as per HPI Cardiovascular: Reports as per HPI Respiratory: Reports as per HPI Gastrointestinal: Reports as per HPI Musculoskeletal: Reports as per HPI Skin/Breast: Reports as per HPI Reports as per HPI Psychiatric: Reports as per HPI Endocrine: Reports as per HPI Hematologic/Lymphatic: Reports as per HPI Allergic/Immunologic: Reports as per HPI Mental Status Exam Mental Status Exam Narrative: Appearance: casually groomed, fair hygiene, in NAD Behavior: cooperative, poor boundaries Speech: clear, hyperverbal, not pressured, spontaneous TP: linear TC: wanting to get better and be discharged soon Mood: good Affect expansive SI: denies HI: denies VH/AH: none Delusions: none Insight/judgment: fair x 2. Memory/cog: alert, oriented x 3. Diagnostics Vital Signs (24Hr): Vital Signs - 24 hr 12/10/22 18:00 12/11/22 08:00 Temperature 97.8 F 97.6 F Pulse Rate 134 H 111 H Respiratory Rate 16 Blood Pressure 92/55 L 109/63 Pulse Oximetry 99 100 Oxygen Delivery Method Room Air Room Air BMI result Body Mass Index 22.2 Labs 12/06/22 18:15 12/08/22 08:54 Labs: Laboratory Results - last 48 hr 12/10/22 12/10/22 12/10/22 12:33 12:33 13:46 Total Bilirubin 0.3 Direct Bilirubin 0.1 AST 19 ALT 13 Alkaline Phosphatase 44 Ammonia 21 Total Protein 7.3 Albumin 4.2 Valproic Acid 43.8 L Medications Medications Current Medications Acetaminophen (Acetaminophen 325 Mg Tablet) 650 mg PO Q6H PRN PRN Reason: Headache/Pain Mild Scale (1-3) Last Admin: 12/10/22 03:44 Dose: 650 mg Al Hydroxide/Mg Hydroxide (Magnesium Hydrox/Alum Hydrox 30 Ml Oral.Susp) 30 ml PO Q6H PRN PRN Reason: Heartburn/Nausea Aripiprazole (Aripiprazole 15 Mg Tablet) 15 mg PO DAILY [facility] Last Admin: 12/11/22 08:01 Dose: 15 mg Clonidine HCl (Clonidine Hcl 0.1 Mg Tablet) 0.1 mg PO Q4H PRN; Protocol PRN Reason: Anxiety Last Admin: 12/11/22 11:56 Dose: 0.1 mg Divalproex Sodium (Divalproex Sodium Er 500 Mg Tab.Er.24h) 1,500 mg PO BEDTIME [facility] Last Admin: 12/10/22 20:35 Dose: 1,500 mg Hydroxyzine HCl (Hydroxyzine Hcl 25 Mg Tablet) 25 mg PO Q6H PRN PRN Reason: Anxiety Last Admin: 12/11/22 10:43 Dose: 25 mg [place] Carbonate ([place] Carbonate Er 300 Mg Tablet.Er) 1,200 mg PO BEDTIME [facility] Lorazepam (Lorazepam 1 Mg Tablet) 1 mg PO BEDTIME [facility] Last Admin: 12/10/22 20:35 Dose: 1 mg Lorazepam (Lorazepam 1 Mg Tablet) 1 mg PO DAILY PRN PRN Reason: Anxiety Magnesium Hydroxide (Milk Of Magnesia 30 Ml Oral.Susp) 30 ml PO DAILY PRN PRN Reason: Constipation Nicotine Polacrilex (Nicotine Polacrilex 2 Mg Gum) 4 mg BUCCAL Q2H PRN PRN Reason: nicotine cravings Last Admin: 12/11/22 14:26 Dose: 4 mg Non-Formulary Medication (Aripiprazole [Abilifrahul Maintena]) 400 mg IM Q30D [facility] Perphenazine (Perphenazine 4 Mg Tablet) 4 mg PO DAILY PRN PRN Reason: agitation Last Admin: 12/11/22 03:51 Dose: 4 mg Perphenazine (Perphenazine 8 Mg Tablet) 8 mg PO TID [facility] Last Admin: 12/11/22 14:02 Dose: 8 mg Trazodone HCl (Trazodone Hcl 100 Mg Tablet) 100 mg PO BEDTIME PRN PRN Reason: insomnia Last Admin: 12/09/22 22:55 Dose: 100 mg Allergies Allergies Allergy/AdvReac Type Severity Reaction Status Date / Time insect venom [MOSQUITO] Allergy Unknown UNKNOWN Verified 12/06/22 18:37 paliperidone [From INVEGA] Allergy Unknown DYSTONIC Verified 12/06/22 18:37 REACTION haloperidol [HALOPERIDOL] AdvReac Intermediate Dystonic Verified 12/06/22 18:37 reaction Assessment & Plan Assessment & Plan (1) Bipolar 1 disorder: Status: Acute Code(s): F31.9 - Bipolar disorder, unspecified (2) Chronic post-traumatic stress disorder (PTSD): Status: Acute Code(s): F43.12 - Post-traumatic stress disorder, chronic Plan Patient is a 22 year old female with hx of Bipolar D/O and PTSD, and was just discharged from on 12/01/22, who self presented to [facility] secondary to getting into an argument with her mother. Plan: CV 15 minute safety checks Continue home medications that she was DCd on. Referral for respite Referral for visiting nurse to help with medication compliance? 12/09- increase lithium to 900mg po qhs. Abilifrahul Wallacetana is pending- verify last dose. Added ativan 1mg po qhs 12/10: Pt reports feeling better since admission. Continues to report auditory and visual hallucinations however states they are decreasing. Pt states she does not want any medications changed. Denies SI/HI. Continue tx plan. 12/11 increase lithium to 1200mg po qhs. Perphenazine to 8mg po TID. monitor boundaries with peers and staff. Reason for continued inpatient stay Substantial Risk for: inability to function Time Spent With Patient Time: Total time managing care of this patient today ____ minutes.
[2022-12-11] MEDS: LORazepam 1 MG TABLET PO ×2 (16:42→21:15)
[2022-12-11 18:50] VITALS: BP 130/70; PULSE 113; RESP 18
[2022-12-11 21:13] VITALS: BP 110/77; PULSE 99; RESP 18; TEMP 36.3; O2SAT 100
[2022-12-11] MEDS: Divalproex Sodium ER 500 MG TAB.ER.24H 1500 MG PO (21:14)
[2022-12-11] MEDS: Lithium Carbonate ER 300 MG TABLET.ER 1200 MG PO (21:14)
[2022-12-11] MEDS: traZODone HCL 100 MG TABLET PO (23:00)
[2022-12-12] MEDS: hydrOXYzine HCL 25 MG TABLET PO ×3 (05:16→22:06)
[2022-12-12] MEDS: Acetaminophen 325 MG TABLET 650 MG PO (08:17)
[2022-12-12] MEDS: Perphenazine 8 MG TABLET PO ×3 (08:18→20:31)
[2022-12-12] MEDS: ARIPiprazole 15 MG TABLET PO (08:18)
[2022-12-12] MEDS: Nicotine Polacrilex 2 MG GUM 4 MG BUCCAL ×5 (08:22→20:20)
[2022-12-12 08:34] VITALS: BP 118/58; PULSE 88; RESP 18; TEMP 36.4; O2SAT 99
[2022-12-12 10:35] VITALS: BP 117/67; PULSE 109
[2022-12-12] MEDS: cloNIDine HCL 0.1 MG TABLET PO (10:42)
[2022-12-12] MEDS: Perphenazine 4 MG TABLET PO (10:42)
--- NOTE | 2022-12-12 13:27 | P.PNPSI_ITS ---
Subjective Subjective Date of Service: 12/12/22 Reason For Visit: psychosis Subjective Notes: Conditional Voluntary and 3 Day Interim History: Patient in was seen and discussed in rounds today. Records and plans were reviewed. She continues to be labile, hyper verbal. Sexualized behavior and after discussion with decided to put her on one-to-one given that she had engaged in sexual interactions with another patient on M5. She continues to have very poor boundaries. She is requesting the Trilafon to be increased to 12 mg but I notice that it had been already increased to 8 mg t.i.d.. Eating and sleeping adequately. No other changes were made Review of Systems Review of Systems Yes all other systems are reviewed and are negative Mental Status Exam Mental Status Exam Narrative: In today's visit she is alert, oriented and pleasant. Speech is slightly pressured. Good eye contact. Affect is appropriate. No acute signs of psychosis. No SI. Cognitively she is grossly intact. Judgment is marginally intact Diagnostics Vital Signs (24Hr): Vital Signs - 24 hr 12/11/22 18:50 12/11/22 21:13 12/12/22 08:34 Temperature 97.3 F 97.6 F Pulse Rate 113 H 99 88 Respiratory Rate 18 18 18 Blood Pressure 130/70 110/77 118/58 L Pulse Oximetry 100 99 Oxygen Delivery Method Room Air Room Air 12/12/22 10:35 Temperature Pulse Rate 109 H Respiratory Rate Blood Pressure 117/67 Pulse Oximetry Oxygen Delivery Method BMI result Body Mass Index 22.2 Labs 12/06/22 18:15 12/08/22 08:54 Labs: Laboratory Results - last 48 hr 12/10/22 12/10/22 12/10/22 12:33 12:33 13:46 Total Bilirubin 0.3 Direct Bilirubin 0.1 AST 19 ALT 13 Alkaline Phosphatase 44 Ammonia 21 Total Protein 7.3 Albumin 4.2 Valproic Acid 43.8 L Medications Medications Current Medications Acetaminophen (Acetaminophen 325 Mg Tablet) 650 mg PO Q6H PRN PRN Reason: Headache/Pain Mild Scale (1-3) Last Admin: 12/12/22 08:17 Dose: 650 mg Al Hydroxide/Mg Hydroxide (Magnesium Hydrox/Alum Hydrox 30 Ml Oral.Susp) 30 ml PO Q6H PRN PRN Reason: Heartburn/Nausea Aripiprazole (Aripiprazole 15 Mg Tablet) 15 mg PO DAILY [facility] Last Admin: 12/12/22 08:18 Dose: 15 mg Clonidine HCl (Clonidine Hcl 0.1 Mg Tablet) 0.1 mg PO Q4H PRN; Protocol PRN Reason: Anxiety Last Admin: 12/12/22 10:42 Dose: 0.1 mg Divalproex Sodium (Divalproex Sodium Er 500 Mg Tab.Er.24h) 1,500 mg PO BEDTIME [facility] Last Admin: 12/11/22 21:14 Dose: 1,500 mg Hydroxyzine HCl (Hydroxyzine Hcl 25 Mg Tablet) 25 mg PO Q6H PRN PRN Reason: Anxiety Last Admin: 12/12/22 10:42 Dose: 25 mg [place] Carbonate ([place] Carbonate Er 300 Mg Tablet.Er) 1,200 mg PO BEDTIME [facility] Last Admin: 12/11/22 21:14 Dose: 1,200 mg Lorazepam (Lorazepam 1 Mg Tablet) 1 mg PO BEDTIME [facility] Last Admin: 12/11/22 21:15 Dose: 1 mg Lorazepam (Lorazepam 1 Mg Tablet) 1 mg PO DAILY PRN PRN Reason: Anxiety Last Admin: 12/11/22 16:42 Dose: 1 mg Magnesium Hydroxide (Milk Of Magnesia 30 Ml Oral.Susp) 30 ml PO DAILY PRN PRN Reason: Constipation Nicotine Polacrilex (Nicotine Polacrilex 2 Mg Gum) 4 mg BUCCAL Q2H PRN PRN Reason: nicotine cravings Last Admin: 12/12/22 13:25 Dose: 4 mg Non-Formulary Medication (Aripiprazole [Abilify Maintena]) 400 mg IM Q30D [facility] Perphenazine (Perphenazine 4 Mg Tablet) 4 mg PO DAILY PRN PRN Reason: agitation Last Admin: 12/12/22 10:42 Dose: 4 mg Perphenazine (Perphenazine 8 Mg Tablet) 8 mg PO TID [facility] Last Admin: 12/12/22 08:18 Dose: 8 mg Trazodone HCl (Trazodone Hcl 100 Mg Tablet) 100 mg PO BEDTIME PRN PRN Reason: insomnia Last Admin: 12/11/22 23:00 Dose: 100 mg Allergies Allergies Allergy/AdvReac Type Severity Reaction Status Date / Time insect venom [MOSQUITO] Allergy Unknown UNKNOWN Verified 12/06/22 18:37 paliperidone [From INVEGA] Allergy Unknown DYSTONIC Verified 12/06/22 18:37 REACTION haloperidol [HALOPERIDOL] AdvReac Intermediate Dystonic Verified 12/06/22 18:37 reaction Assessment & Plan Assessment & Plan (1) Bipolar 1 disorder: Status: Acute Code(s): F31.9 - Bipolar disorder, unspecified (2) Chronic post-traumatic stress disorder (PTSD): Status: Acute Code(s): F43.12 - Post-traumatic stress disorder, chronic Plan Patient is a 22 year old female with hx of Bipolar D/O and PTSD, and was just d ischarged from M5 on 12/01/22, who self presented to [facility] ER secondary to getting into an argument with her mother. Plan: CV 15 minute safety checks Continue home medications that she was DCd on. Referral for respite Referral for visiting nurse to help with medication compliance? 12/09- increase lithium to 900mg po qhs. Abilify Maintana is pending- verify last dose. Added ativan 1mg po qhs 12/10: Pt reports feeling better since admission. Continues to report auditory and visual hallucinations however states they are decreasing. Pt states she does not want any medications changed. Denies SI/HI. Continue tx plan. 12/11 increase lithium to 1200mg po qhs. Perphenazine to 8mg po TID. monitor boundaries with peers and staff. Continue current regimen and plans. Reason for continued inpatient stay Substantial Risk for: med/psych decompensation Time Spent With Patient Time: Total time managing care of this patient today ____ minutes.
[2022-12-12 20:25] VITALS: BP 110/56; PULSE 101; RESP 18; TEMP 36.3; O2SAT 99
[2022-12-12] MEDS: Lithium Carbonate ER 300 MG TABLET.ER 1200 MG PO (20:31)
[2022-12-12] MEDS: LORazepam 1 MG TABLET PO (20:31)
[2022-12-12] MEDS: Divalproex Sodium ER 500 MG TAB.ER.24H 1500 MG PO (20:32)
[2022-12-12] MEDS: traZODone HCL 100 MG TABLET PO (22:05)
[2022-12-13] MEDS: Acetaminophen 325 MG TABLET 650 MG PO (00:22)
[2022-12-13] MEDS: cloNIDine HCL 0.1 MG TABLET PO ×2 (00:22→17:16)
[2022-12-13] MEDS: Nicotine Polacrilex 2 MG GUM 4 MG BUCCAL ×6 (01:49→21:19)
[2022-12-13 08:00] VITALS: BP 122/69; PULSE 78; RESP 16; TEMP 36.6; O2SAT 97
[2022-12-13] MEDS: Perphenazine 8 MG TABLET PO ×3 (08:18→20:58)
[2022-12-13] MEDS: ARIPiprazole 15 MG TABLET PO (08:18)
[2022-12-13] MEDS: hydrOXYzine HCL 25 MG TABLET PO ×3 (08:20→22:58)
[2022-12-13] MEDS: Milk of Magnesia 30 ML ORAL.SUSP PO (09:00)
--- NOTE | 2022-12-13 11:04 | HO.PSYCHPN ---
Subjective Subjective Date of Service: 12/13/22 Reason For Visit: psychosis Subjective Notes: Conditional Voluntary and 3 Day Interim History: Patient in was seen and discussed in rounds today. Records and plans were reviewed. She has been doing well with the one-to-one observation with no major boundary violations. This is also working out better for her roommate because we can leave the bathroom unlocked. She still has some mood lability. She talked about the fact that ?my anorexia is acting up, having no appetite?. She has been eating. She has been a little more irritable at times. Sleeping adequately. No changes were made today Review of Systems Review of Systems Yes all other systems are reviewed and are negative Mental Status Exam Mental Status Exam Narrative: In today's visit she is alert, oriented and pleasant. Speech is slightly pressured. Good eye contact. Affect is appropriate. No acute signs of psychosis. No SI. Cognitively she is grossly intact. Judgment is marginally intact Diagnostics Vital Signs (24Hr): Vital Signs - 24 hr 12/12/22 20:25 Temperature 97.4 F Pulse Rate 101 H Respiratory Rate 18 Blood Pressure 110/56 L Pulse Oximetry 99 Oxygen Delivery Method Room Air BMI result Body Mass Index 22.2 Labs 12/06/22 18:15 12/08/22 08:54 Medications Medications Current Medications Acetaminophen (Acetaminophen 325 Mg Tablet) 650 mg PO Q6H PRN PRN Reason: Headache/Pain Mild Scale (1-3) Last Admin: 12/13/22 00:22 Dose: 650 mg Al Hydroxide/Mg Hydroxide (Magnesium Hydrox/Alum Hydrox 30 Ml Oral.Susp) 30 ml PO Q6H PRN PRN Reason: Heartburn/Nausea Aripiprazole (Aripiprazole Er 400 Mg Suser.Syr) 400 mg IM Q30D [facility] Aripiprazole (Aripiprazole 15 Mg Tablet) 15 mg PO DAILY [facility] Last Admin: 12/13/22 08:18 Dose: 15 mg Clonidine HCl (Clonidine Hcl 0.1 Mg Tablet) 0.1 mg PO Q4H PRN; Protocol PRN Reason: Anxiety Last Admin: 12/13/22 00:22 Dose: 0.1 mg Divalproex Sodium (Divalproex Sodium Er 500 Mg Tab.Er.24h) 1,500 mg PO BEDTIME [facility] Last Admin: 12/12/22 20:32 Dose: 1,500 mg Hydroxyzine HCl (Hydroxyzine Hcl 25 Mg Tablet) 25 mg PO Q6H PRN PRN Reason: Anxiety Last Admin: 12/13/22 08:20 Dose: 25 mg [place] Carbonate ([place] Carbonate Er 300 Mg Tablet.Er) 1,200 mg PO BEDTIME [facility] Last Admin: 12/12/22 20:31 Dose: 1,200 mg Lorazepam (Lorazepam 1 Mg Tablet) 1 mg PO BEDTIME [facility] Last Admin: 12/12/22 20:31 Dose: 1 mg Lorazepam (Lorazepam 1 Mg Tablet) 1 mg PO DAILY PRN PRN Reason: Anxiety Last Admin: 12/11/22 16:42 Dose: 1 mg Magnesium Hydroxide (Milk Of Magnesia 30 Ml Oral.Susp) 30 ml PO DAILY PRN PRN Reason: Constipation Last Admin: 12/13/22 09:00 Dose: 30 ml Nicotine Polacrilex (Nicotine Polacrilex 2 Mg Gum) 4 mg BUCCAL Q2H PRN PRN Reason: nicotine cravings Last Admin: 12/13/22 10:49 Dose: 4 mg Perphenazine (Perphenazine 4 Mg Tablet) 4 mg PO DAILY PRN PRN Reason: agitation Last Admin: 12/12/22 10:42 Dose: 4 mg Perphenazine (Perphenazine 8 Mg Tablet) 8 mg PO TID [facility] Last Admin: 12/13/22 08:18 Dose: 8 mg Trazodone HCl (Trazodone Hcl 100 Mg Tablet) 100 mg PO BEDTIME PRN PRN Reason: insomnia Last Admin: 12/12/22 22:05 Dose: 100 mg Allergies Allergies Allergy/AdvReac Type Severity Reaction Status Date / Time insect venom [MOSQUITO] Allergy Unknown UNKNOWN Verified 12/06/22 18:37 paliperidone [From INVEGA] Allergy Unknown DYSTONIC Verified 12/06/22 18:37 REACTION haloperidol [HALOPERIDOL] AdvReac Intermediate Dystonic Verified 12/06/22 18:37 reaction Assessment & Plan Assessment & Plan (1) Bipolar 1 disorder: Status: Acute Code(s): F31.9 - Bipolar disorder, unspecified (2) Chronic post-traumatic stress disorder (PTSD): Status: Acute Code(s): F43.12 - Post-traumatic stress disorder, chronic Plan Patient is a 22 year old female with hx of Bipolar D/O and PTSD, and was just discharged from on 12/01/22, who self presented to [facility] secondary to getting into an argument with her mother. Plan: CV 15 minute safety checks Continue home medications that she was DCd on. Referral for respite Referral for visiting nurse to help with medication compliance? 12/09- increase lithium to 900mg po qhs. Abilifrahul Wallacetana is pending- verify last dose. Added ativan 1mg po qhs 12/10: Pt reports feeling better since admission. Continues to report auditory and visual hallucinations however states they are decreasing. Pt states she does not want any medications changed. Denies SI/HI. Continue tx plan. 12/11 increase lithium to 1200mg po qhs. Perphenazine to 8mg po TID. monitor boundaries with peers and staff. 12/12: Continue current regimen and plans. 12/13: Continue current regimen and plans. Continue one-to-one Reason for continued inpatient stay Substantial Risk for: med/psych decompensation Time Spent With Patient Time: Total time managing care of this patient today ____ minutes.
[2022-12-13 20:30] VITALS: BP 127/77; PULSE 100; RESP 18; TEMP 36.4; O2SAT 99
[2022-12-13] MEDS: Lithium Carbonate ER 300 MG TABLET.ER 1200 MG PO (20:58)
[2022-12-13] MEDS: Divalproex Sodium ER 500 MG TAB.ER.24H 1500 MG PO (20:58)
[2022-12-13] MEDS: LORazepam 1 MG TABLET PO (20:58)
[2022-12-13] MEDS: traZODone HCL 100 MG TABLET PO (21:21)
[2022-12-14] MEDS: Acetaminophen 325 MG TABLET 650 MG PO (04:12)
[2022-12-14] MEDS: cloNIDine HCL 0.1 MG TABLET PO (04:12)
[2022-12-14 08:00] VITALS: BP 100/66; PULSE 86; TEMP 36.6; O2SAT 98
[2022-12-14] MEDS: ARIPiprazole 15 MG TABLET PO (08:05)
[2022-12-14] MEDS: Perphenazine 8 MG TABLET PO ×3 (08:06→20:28)
[2022-12-14] MEDS: Nicotine Polacrilex 2 MG GUM 4 MG BUCCAL ×4 (08:10→20:27)
--- NOTE | 2022-12-14 09:52 | HO.PSYCHPN ---
Subjective Subjective Date of Service: 12/14/22 Reason For Visit: psychosis Subjective Notes: 3 Day Interim History: Reviewed in team and Dr. Juan. Patient reports feeling a lot better than when I came in here ; states she is no longer feeling paranoid . Patient reports she plans on living with her grandmother when discharged and following up with outpatient appointments. Medication Compliance: Yes Side effects from medications: No Attending Groups: Intermittent Review of Systems Constitutional: Reports as per HPI Eyes: Reports as per HPI Reports as per HPI Cardiovascular: Reports as per HPI Respiratory: Reports as per HPI Gastrointestinal: Reports as per HPI Genitourinary: Reports as per HPI Musculoskeletal: Reports as per HPI Skin/Breast: Reports as per HPI Reports as per HPI Psychiatric: Reports as per HPI Endocrine: Reports as per HPI Hematologic/Lymphatic: Reports as per HPI Allergic/Immunologic: Reports as per HPI Mental Status Exam Mental Status Exam Narrative: Pt is alert and oriented; behavior is cooperative and calm; patient is not in distress; dressed in casual attire; mood is described as good ; eye contact appropriate; Speech is normal rate, volume and prosody and not pressured; no psychomotor agitation/retardation present; thought process is organized and goal directed; Thought content is on tx; otherwise pertinent to relevant topics and without any delusional content, paranoid ideations or grandiosity; denies SI/HI. There is no evidence of perceptual disturbance. Patients insight and judgment are fair. Diagnostics Vital Signs (24Hr): Vital Signs - 24 hr 12/13/22 20:30 12/14/22 08:00 Temperature 97.5 F 97.9 F Pulse Rate 100 86 Respiratory Rate 18 Blood Pressure 127/77 100/66 Pulse Oximetry 99 98 Oxygen Delivery Method Room Air Room Air BMI result Body Mass Index 22.2 Labs 12/06/22 18:15 12/08/22 08:54 Medications Medications Current Medications Acetaminophen (Acetaminophen 325 Mg Tablet) 650 mg PO Q6H PRN PRN Reason: Headache/Pain Mild Scale (1-3) Last Admin: 12/14/22 04:12 Dose: 650 mg Al Hydroxide/Mg Hydroxide (Magnesium Hydrox/Alum Hydrox 30 Ml Oral.Susp) 30 ml PO Q6H PRN PRN Reason: Heartburn/Nausea Aripiprazole (Aripiprazole Er 400 Mg Suser.Syr) 400 mg IM Q30D [facility] Aripiprazole (Aripiprazole 15 Mg Tablet) 15 mg PO DAILY [facility] Last Admin: 12/14/22 08:05 Dose: 15 mg Clonidine HCl (Clonidine Hcl 0.1 Mg Tablet) 0.1 mg PO Q4H PRN; Protocol PRN Reason: Anxiety Last Admin: 12/14/22 04:12 Dose: 0.1 mg Divalproex Sodium (Divalproex Sodium Er 500 Mg Tab.Er.24h) 1,500 mg PO BEDTIME [facility] Last Admin: 12/13/22 20:58 Dose: 1,500 mg Hydroxyzine HCl (Hydroxyzine Hcl 25 Mg Tablet) 25 mg PO Q6H PRN PRN Reason: Anxiety Last Admin: 12/13/22 22:58 Dose: 25 mg [place] Carbonate ([place] Carbonate Er 300 Mg Tablet.Er) 1,200 mg PO BEDTIME [facility] Last Admin: 12/13/22 20:58 Dose: 1,200 mg Lorazepam (Lorazepam 1 Mg Tablet) 1 mg PO BEDTIME [facility] Last Admin: 12/13/22 20:58 Dose: 1 mg Lorazepam (Lorazepam 1 Mg Tablet) 1 mg PO DAILY PRN PRN Reason: Anxiety Last Admin: 12/11/22 16:42 Dose: 1 mg Magnesium Hydroxide (Milk Of Magnesia 30 Ml Oral.Susp) 30 ml PO DAILY PRN PRN Reason: Constipation Last Admin: 12/13/22 09:00 Dose: 30 ml Nicotine Polacrilex (Nicotine Polacrilex 2 Mg Gum) 4 mg BUCCAL Q2H PRN PRN Reason: nicotine cravings Last Admin: 12/14/22 08:10 Dose: 4 mg Perphenazine (Perphenazine 4 Mg Tablet) 4 mg PO DAILY PRN PRN Reason: agitation Last Admin: 12/12/22 10:42 Dose: 4 mg Perphenazine (Perphenazine 8 Mg Tablet) 8 mg PO TID [facility] Last Admin: 12/14/22 08:06 Dose: 8 mg Trazodone HCl (Trazodone Hcl 100 Mg Tablet) 100 mg PO BEDTIME PRN PRN Reason: insomnia Last Admin: 12/13/22 21:21 Dose: 100 mg Allergies Allergies Allergy/AdvReac Type Severity Reaction Status Date / Time insect venom [MOSQUITO] Allergy Unknown UNKNOWN Verified 12/06/22 18:37 paliperidone [From INVEGA] Allergy Unknown DYSTONIC Verified 12/06/22 18:37 REACTION haloperidol [HALOPERIDOL] AdvReac Intermediate Dystonic Verified 12/06/22 18:37 reaction Assessment & Plan Assessment & Plan (1) Bipolar 1 disorder: Status: Acute Code(s): F31.9 - Bipolar disorder, unspecified (2) Chronic post-traumatic stress disorder (PTSD): Status: Acute Code(s): F43.12 - Post-traumatic stress disorder, chronic Plan Patient is a 22 year old female with hx of Bipolar D/O and PTSD, and was just discharged from on 12/01/22, who self presented to [facility] secondary to getting into an argument with her mother. Plan: CV 15 minute safety checks Continue home medications that she was DCd on. Referral for respite Referral for visiting nurse to help with medication compliance? 12/09- increase lithium to 900mg po qhs. Abilify Maintana is pending- verify last dose. Added ativan 1mg po qhs 12/10: Pt reports feeling better since admission. Continues to report auditory and visual hallucinations however states they are decreasing. Pt states she does not want any medications changed. Denies SI/HI. Continue tx plan. 12/11 increase lithium to 1200mg po qhs. Perphenazine to 8mg po TID. monitor boundaries with peers and staff. 12/12: Continue current regimen and plans. 12/13: Continue current regimen and plans. 12/14: Patient reports feeling a lot better than when I came in here ; states she is no longer feeling paranoid . Patient reports she plans on living with her grandmother when discharged and following up with outpatient appointments. Denies SI/HI/VH/AH. Plan to discharge pt tomorrow on 3 day. Patient educated on: diagnosis, medication risk/benefits and therapeutic strategies Informed Consent: understands Reason for continued inpatient stay Substantial Risk for: stable for discharge Time Spent With Patient Time: Total time managing care of this patient today _30___ minutes.
[2022-12-14] MEDS: LORazepam 1 MG TABLET PO ×2 (11:14→20:28)
[2022-12-14 19:40] VITALS: BP 119/60; PULSE 98; RESP 18; TEMP 36.6; O2SAT 100
[2022-12-14] MEDS: Divalproex Sodium ER 500 MG TAB.ER.24H 1500 MG PO (20:27)
[2022-12-14] MEDS: Lithium Carbonate ER 300 MG TABLET.ER 1200 MG PO (20:27)
[2022-12-14] MEDS: traZODone HCL 100 MG TABLET PO (21:07)
[2022-12-14] MEDS: hydrOXYzine HCL 25 MG TABLET PO (21:07)
[2022-12-15] MEDS: Perphenazine 4 MG TABLET PO (04:26)
[2022-12-15] MEDS: hydrOXYzine HCL 25 MG TABLET PO (04:26)
[2022-12-15 08:00] VITALS: BP 107/55; PULSE 100; TEMP 36.6; O2SAT 97
[2022-12-15] MEDS: ARIPiprazole 15 MG TABLET PO (08:24)
[2022-12-15] MEDS: Perphenazine 8 MG TABLET PO (08:24)
[2022-12-15] MEDS: Nicotine Polacrilex 2 MG GUM 4 MG BUCCAL (08:25)
--- NOTE | 2022-12-15 09:58 | PM.PSYDC ---
DS: Providers Provider Date of Service: 12/15/22 Date of admission: 12/07/22 15:00 Date of discharge: 12/15/22 Primary care physician: Unknown Physician Admitting clinician: Fabiana Plascencia Attending physician on admission: Robin Juan Attending physician on discharge: Robin Juan Discharging clinician: Fabiana Plascencia DS: Diagnosis Discharge Diagnosis (1) Bipolar 1 disorder: Status: Acute (2) Chronic post-traumatic stress disorder (PTSD): Status: Acute DS: Medications Discharge Medications Home Medications: Previous Rx's Medication Instructions Recorded aripiprazole 400 mg intramuscular 400 mg IM QMONTH 30 days #1 ea 11/17/22 suspension,extended release (Abilify Maintena) aripiprazole 15 mg tablet 15 mg PO DAILY 14 days #14 tabs 12/01/22 clonidine HCl 0.1 mg tablet 0.1 mg PO Q4H PRN Anxiety 30 days 12/01/22 #90 tabs divalproex 500 mg tablet,extended 1,500 mg PO BEDTIME 30 days #90 12/01/22 release 24 hr tabs lithium carbonate 300 mg 300 mg PO BEDTIME 30 days #30 tabs 12/01/22 tablet,extended release nicotine (polacrilex) 4 mg gum 4 mg buccal Q2H PRN nicotine 12/01/22 cravings 30 days #110 ea perphenazine 4 mg tablet 4 mg PO DAILY PRN agitation 30 12/01/22 days #30 tabs perphenazine 4 mg tablet 4 mg PO TID 30 days #90 tabs 12/01/22 trazodone 100 mg tablet 100 mg PO BEDTIME PRN insomnia 30 12/01/22 days #30 tabs Mental Status Exam Mental Status Exam Narrative: Pt is alert and oriented; behavior is cooperative, friendly and calm; patient is not in distress; dressed in casual attire; mood is described as good ; eye contact appropriate; Speech is normal rate, volume and prosody and not pressured; no psychomotor agitation/retardation present; thought process is organized and goal directed; Thought content is on tx; otherwise pertinent to relevant topics and without any delusional content, paranoid ideations or grandiosity; denies SI/HI. There is no evidence of perceptual disturbance. Patients insight and judgment are fair. Data Data Completed and Pending Completed studies during hospitalization [Text1]: 12/08/22 12/10/22 12/10/22 08:54 12:33 12:33 Sodium 136 Potassium 4.5 Chloride 104 Carbon Dioxide 23 Anion Gap 14 BUN 7 L Creatinine 0.68 Estim Creat Clear Calc 121.5 Estimated GFR > 60 Fasting Glucose 75 Calcium 9.7 Total Bilirubin 0.2 0.3 Direct Bilirubin 0.1 AST 20 19 ALT 14 13 Alkaline Phosphatase 40 44 Ammonia Total Protein 7.0 7.3 Albumin 4.1 4.2 Triglycerides 43 Cholesterol 126 LDL Cholesterol, Calc 73 HDL Cholesterol 45 TSH 1.39 Valproic Acid 43.8 L 12/10/22 13:46 Sodium Potassium Chloride Carbon Dioxide Anion Gap BUN Creatinine Estim Creat Clear Calc Estimated GFR Fasting Glucose Calcium Total Bilirubin Direct Bilirubin AST ALT Alkaline Phosphatase Ammonia 21 Total Protein Albumin Triglycerides Cholesterol LDL Cholesterol, Calc HDL Cholesterol TSH Valproic Acid 12/06/22 Unknown Urine clean catch - Clean Catch Midstream Urine Culture - Final Strep agalactiae (Grp B) DS: Summary Hospital Course Hospital Course: Patient is a 22 year old female with hx of Bipolar D/O and PTSD, and was just discharged from on 12/01/22, who self presented to [facility] [place] ER secondary to getting into an argument with her mother. During admission assessment patient presents calm, cooperative and organized. Patient reports she came to the hospital d/t getting into a fight with my mom about my little brother because he's mean and keeps taking my things. I want to leave that house and go to respite . Pt reports she has not been medication compliant; when asked why, patient stated, I just keep forgetting to take my meds . She reports passive suicidal ideation; pt stated, if I don't get what I want, which is respite then I'll be suicidal . Pt states having auditory/visual hallucinations of the devil and seeing shadows . Pt stated, the devil speaks to me. He tells me to do drugs, smoke this, drink this . Patient reports she feels her soul is on fire and my heart is going to break . During hospital stay pt was restarted on her home medications. [place] was increased to 900mg PO bedtime; added Ativan 1mg PO bedtime. Pt reports feeling better since admission. Continues to report auditory and visual hallucinations however states they are decreasing. Denies SI/HI. [place] was increased to 1200mg PO bedtime. Perphenazine to 8mg po TID. Patient needs to be monitored with boundaries with peers and staff. Patient educated on importance of maintaining boundaries and safety. Patient reports feeling a lot better than when I came in here ; states she is no longer feeling paranoid or suicidal . Patient stated, I'm going to focus on myself . Patient reports she plans on living with her grandmother when discharged and following up with outpatient appointments. Denies SI/HI/VH/AH. Pt discharged on 3 day. Time spent discussing smoking cessation with patient: 3 to 10 minutes Status at Discharge Cognitive/behavioral status at discharge: Patient was interviewed prior to discharge and found to be fully oriented and without any SI or HI. Patient has insight and demonstrates good judgment in terms of wanting to pursue treatment. Patient is not in imminent risk of harm to self or others and has a safety plan that includes presenting to the closest ER or calling 911 if feeling unsafe. Patient has been observed closely by nursing and unit staff throughout admission; patient has not engaged in any behaviors that suggest dangerousness to self or others and has demonstrated appropriate behaviors and impulse control. Functional status at discharge: independent ambulation Overall status at discharge: patient is back to baseline Time Spent with Patient Time attestation: Total time managing care of this patient today _30___ minutes. Time spent: Less than 30 minutes Discharge Plan Discharge Anticipated Discharge Date/Time: 12/15/22 11:00 Patient Disposition: Home, Self-Care Discharge Diagnosis: Bipolar D/O, PTSD, Referrals: [facility] (Therapy) [Other] - 12/21/22 5:00 pm (TELEHEALTH APPOINTMENT) Dimas Krishnan (Psychiatry) [Other] - 01/15/23 9:30 am (TELEHEALTH APPOINTMENT) [facility] [Provider Group] - 1 Week Discharge Medications: New lithium carbonate 300 mg Tablet Extended Release 1,200 mg PO BEDTIME 30 Days Qty: 120 0RF perphenazine 8 mg Tablet 8 mg PO TID 30 Days Qty: 90 0RF Continued Abilify Maintena 400 mg suspension,extended rel recon 400 mg IM QMONTH 30 Days Qty: 1 0RF Patient Comments: Reports she took 11/19 Rx Instructions: to be administered cayla clonidine HCl 0.1 mg tablet 0.1 mg PO Q4H PRN (Reason: Anxiety) 30 Days Qty: 90 1RF trazodone 100 mg tablet 100 mg PO BEDTIME PRN (Reason: insomnia) 30 Days Qty: 30 0RF nicotine (polacrilex) 4 mg gum 4 mg buccal Q2H PRN (Reason: nicotine cravings) 30 Days Qty: 110 1RF divalproex 500 mg Tablet Extended Release 24 Hr 1,500 mg PO BEDTIME 30 Days Qty: 90 0RF perphenazine 4 mg tablet 4 mg PO DAILY PRN (Reason: agitation) 30 Days Qty: 30 0RF aripiprazole 15 mg Tablet 15 mg PO DAILY 30 Days Qty: 30 0RF Discontinued lithium carbonate 300 mg Tablet Extended Release 300 mg PO BEDTIME 30 Days Qty: 30 0RF perphenazine 4 mg Tablet 4 mg PO TID 30 Days Qty: 90 0RF Rx Instructions: take at 9am, 3pm and 9pm Discharge Orders: Discharge Order (Routine); Ordered 12/15/22 Ordered By: Fabiana Plascencia Diet: Regular diet Activity on Discharge: As tolerated Stand Alone Forms: Patient Portal Discharge page, Community Support Care Plan Goals: Maintain mood and safe behaviors Take medications as prescribed Practice coping skills Continue with outpatient providers and reach out to them as needed Health Concerns: Mood stability and behaviors Plan of Treatment: Follow up with your PCP, psychiatric provider and other outpatient providers regarding above concerns Take medications as prescribed Assessment: Patient was interviewed prior to discharge and found to be fully oriented and without any SI or HI. Patient has insight and demonstrates good judgment in terms of wanting to pursue treatment. Patient is not in imminent risk of harm to self or others and has a safety plan that includes presenting to the closest ER or calling 911 if feeling unsafe. Patient has been observed closely by nursing and unit staff throughout admission; patient has not engaged in any behaviors that suggest dangerousness to self or others and has demonstrated appropriate behaviors and impulse control. Discharge Date/Time: 12/15/22 10:45
== END 2022-12-15 10:45 | disposition home or self-care (01) | DRG 753 ==
LOC: HO.ED 12-07 01:23 → HO.PADLT16 12-07 15:18
PROVIDERS: Emergency Medicine Emergency Medical Services; Admitting Provider Psychiatry & Neurology Psychiatry; Emergency Provider Internal Medicine; Responsible Provider Registered Nurse; Visit Provider Psychiatry & Neurology Psychiatry
DX: F31.9 Bipolar disorder, unspecified (principal); Z91.148 Patient's other noncompliance with medication regimen for other reason; F17.210 Nicotine dependence, cigarettes, uncomplicated; Z20.822 Contact with and (suspected) exposure to COVID-19; F43.12 Post-traumatic stress disorder, chronic; F41.9 Anxiety disorder, unspecified; Z71.6 Tobacco abuse counseling; Z79.899 Other long term (current) drug therapy
CPT/HCPCS: 36415; 80053; 80061; 80076; 80164; 80178; 80307; 81001; 81025; 82140; 84443; 85025; 87086; 87147; 87635; 93005; 99285; S9485

== ENCOUNTER → 2022-12-07 07:25 | Outpatient (BNV) | payer MEDICAID, SELFPAY | PROVIDERS: Emergency Provider Internal Medicine; Visit Provider Internal Medicine | DX: Z51.81 Encounter for therapeutic drug level monitoring (principal) | CPT/HCPCS: 93010 ==

== ENCOUNTER → 2022-12-07 15:00 | Outpatient (BNV) | payer OTHER, SELFPAY | PROVIDERS: Admitting Provider Psychiatry & Neurology Psychiatry; Emergency Provider Internal Medicine; Responsible Provider Registered Nurse; Visit Provider Registered Nurse | DX: F31.9 Bipolar disorder, unspecified (principal); F43.12 Post-traumatic stress disorder, chronic | CPT/HCPCS: 99231; 99232; 99233 ==

== ENCOUNTER 2022-12-25 02:37 | Emergency (ER) | payer MEDICAID, OTHER, SELFPAY ==
[2022-12-25 02:41] VITALS: BP 90/70; PULSE 110; RESP 14; TEMP 36.6; O2SAT 99; BMI 22.6
--- NOTE | 2022-12-25 03:21 | ED.GENADULT ---
HPI - General Adult General Chief complaint: Psychiatric Symptoms Stated complaint: Crisis History of Present Illness HPI narrative: Patient with history of bipolar disorder , anxiety, PTSD on lithium comes here for increased anxiety nervous lethargic at times says that it feels like she is going to with history of auditory and visual hallucination telling her to harm herself denies any SI or HI patient feels at side effect of lithium causing the symptoms patient smokes marijuana denies any other substance abuse Related Data Home Medications Medication Instructions Recorded Confirmed clonidine HCl 0.1 mg tablet 0.1 mg PO TID 12/25/22 12/25/22 divalproex 500 mg tablet,extended 500 mg PO TID 12/25/22 12/25/22 release 24 hr lithium carbonate 300 mg 600 mg PO BID 12/25/22 12/25/22 tablet,extended release nicotine (polacrilex) 2 mg gum 2 mg PO Q2H PRN Nicotine Cravings 12/25/22 12/25/22 perphenazine 4 mg tablet 8 mg PO BID 12/25/22 12/25/22 trazodone 100 mg tablet 100 mg PO BEDTIME 12/25/22 12/25/22 Allergies Allergy/AdvReac Type Severity Reaction Status Date / Time insect venom [MOSQUITO] Allergy Unknown UNKNOWN Verified 12/06/22 18:37 paliperidone [From INVEGA] Allergy Unknown DYSTONIC Verified 12/06/22 18:37 REACTION haloperidol [HALOPERIDOL] AdvReac Intermediate Dystonic Verified 12/06/22 18:37 reaction Review of Systems Review of Systems: Yes all other systems are reviewed and are negative [facility] Past Medical History Medical History Anxiety Bipolar 1 disorder Bipolar disorder Depression Social History Social History Household Members: Family Household Members Other:: Resides at [facility] currently Housing: Apartment Do you presently have visiting nurse or other home services: No Alcohol intake: never Patient Tobacco Use Status: Current everyday Tobacco user Tobacco use type: Cigarette and Smokeless Tobacco Cigarette Packs Per Day: 2 Cigarettes Per Day: 40.0 Years Smoked: 2 years e-Cigarette/Vaping Use: Currently Using Second Hand Smoke Exposure: No Substance Use Type: Marijuana Advance Directives: No Advance Directives Information Provided: Yes service: No Sexual orientation: Bisexual Physical Exam ED Vital Signs: Vital Signs - 24 hr 12/25/22 02:41 Temperature 97.9 F Pulse Rate 110 H Respiratory Rate 14 Blood Pressure 90/70 Pulse Oximetry 99 Oxygen Delivery Method Room Air BMI result Body Mass Index 22.6 Appearance: Alert. Oriented X3. No acute distress. Eyes: PERRLA, No Nystagmus ENT: Pharynx normal. Oral Mucosa moist Neck: Normal inspection. Neck supple. CVS: Normal heart rate and rhythm. Pulses normal. Respiratory: No respiratory distress. Equal air entry bilateral, no wheezing/rales/rhonchi Abdomen: Soft and nontender. Bowel sounds are present, no mass palpable, no CVA tenderness Skin: Skin warm and dry. Normal skin color. Normal skin turgor. Extremities: No lower extremity edema. No calf tenderness psych: Anxious denies any SI or HI denies any hallucination at this time Neuro: Oriented X 3. No motor deficit. No sensory deficit.No cerebellar signs , cranial nerves II-XII intact Medications Administered Discontinued Medications Generic Name Dose Route Start Last Admin Trade Name Freq PRN Reason Stop Dose Admin Lorazepam 2 mg 12/25/22 04:13 12/25/22 04:16 Lorazepam 1 Mg Tablet PO 12/25/22 04:14 2 mg ONCE ONE Administration Medical Decision Making Medical Decision Making [facility] Narrative: Patient with therapeutic lithium level with bipolar disorder will get care Team consult for her restlessness anxiety and hallucination Lab Data [facility] Lab Attestation statement: I reviewed the patient's lab results. 12/25/22 03:25 12/25/22 03:25 Labs: Lab Results 12/25/22 12/25/22 12/25/22 Range/Units 03:25 03:25 03:25 WBC 9.1 (4.8-10.8) X10*3/uL RBC 4.20 (4.20-5.50) X10*6/uL Hgb 13.0 (12.0-16.0) g/dl Hct 38.4 (37.0-47.0) % MCV 91.4 (80.0-98.0) fL MCH 31.0 (27.0-33.0) pg MCHC 33.9 (31.0-35.0) g/dl RDW 11.9 (11.0-16.0) % Plt Count 238 (160-400) X10*3/uL MPV 9.7 (9.4-12.3) fL Immature Gran % (Auto) 0.2 (0.0-0.4) % Neut % (Auto) 62.8 (45-73) % Lymph % (Auto) 30.4 (20-40) % [place] % (Auto) 5.6 (2-11) % Eos % (Auto) 0.7 (0-4) % Baso % (Auto) 0.3 (0-2) % Lymph # (Auto) 2.8 (1.2-4.9) X10*3/uL [place] # (Auto) 0.5 (0.1-1.2) X10*3/uL Eos # (Auto) 0.1 (0.0-0.4) X10*3/uL Baso # (Auto) 0.0 (0.0-0.2) X10*3/uL Abs Immat Gran (auto) 0.02 (0.00-0.03) X10*3/uL Absolute Neuts (auto) 5.7 (2.0-8.3) x10*3/uL Absolute Nucleated RBC 0.000 (0.0-0.012) X10*3/uL Nucleated RBC % (auto) 0.0 (0.0-0.2) /100WBC Sodium 137 (135-145) mmol/L Potassium 4.1 (3.3-5.1) mmol/L Chloride 103 (96-108) mmol/L Carbon Dioxide 25 (22-29) mmol/L Anion Gap 13 (12-20) BUN 5 L (9-16) mg/dL Creatinine 0.74 (0.5-1.4) mg/dL Estim Creat Clear Calc 111.6 Estimated GFR > 60 Random Glucose 114 (60-115) mg/dL Calcium 9.9 (8.4-10.2) mg/dL Total Bilirubin 0.2 (0.0-1.0) mg/dL AST 22 (5-31) U/L ALT 12 (0-31) U/L Alkaline Phosphatase 46 (39-117) U/L Total Protein 7.6 (6.5-8.0) g/dL Albumin 4.3 (3.5-5.0) g/dL Urine Color Urine Appearance Urine pH (5.0-9.0) Ur Specific [place] (1.005-1.025) Urine Protein (Neg-Trace) mg/dL Urine Glucose (UA) (Negative) mg/dL Urine Ketones (Negative) mg/dL Urine Blood (Negative) Urine Nitrite (Negative) Ur Leukocyte Esterase (Negative) Urine RBC (0-2) /HPF Urine WBC (0-5) /HPF Ur Squamous Epith Cells (0-2) /HPF Urine Bacteria (None Seen) Hyaline Casts (0-2) /LPF Urine Test (NEGATIVE) Urine Opiates Screen (Not Detect) Urine Fentanyl Screen (Not Detect) Ur Barbiturates Screen (Not Detect) Valproic Acid (50.0-100.0) mcg/mL Ur Phencyclidine Scrn (Not Detect) Ur Amphetamines Screen (Not Detect) U Benzodiazepines Scrn (Not Detect) [place] 0.66 (0.60-1.20) mmol/L Urine Cocaine Screen (Not Detect) U Marijuana (THC) Screen (Not Detect) Ethyl Alcohol < 10 mg/dL 12/25/22 12/25/22 12/25/22 Range/Units 03:25 03:26 03:26 WBC (4.8-10.8) X10*3/uL RBC (4.20-5.50) X10*6/uL Hgb (12.0-16.0) g/dl Hct (37.0-47.0) % MCV (80.0-98.0) fL MCH (27.0-33.0) pg MCHC (31.0-35.0) g/dl RDW (11.0-16.0) % Plt Count (160-400) X10*3/uL MPV (9.4-12.3) fL Immature Gran % (Auto) (0.0-0.4) % Neut % (Auto) (45-73) % Lymph % (Auto) (20-40) % [place] % (Auto) (2-11) % Eos % (Auto) (0-4) % Baso % (Auto) (0-2) % Lymph # (Auto) (1.2-4.9) X10*3/uL [place] # (Auto) (0.1-1.2) X10*3/uL Eos # (Auto) (0.0-0.4) X10*3/uL Baso # (Auto) (0.0-0.2) X10*3/uL Abs Immat Gran (auto) (0.00-0.03) X10*3/uL Absolute Neuts (auto) (2.0-8.3) x10*3/uL Absolute Nucleated RBC (0.0-0.012) X10*3/uL Nucleated RBC % (auto) (0.0-0.2) /100WBC Sodium (135-145) mmol/L Potassium (3.3-5.1) mmol/L Chloride (96-108) mmol/L Carbon Dioxide (22-29) mmol/L Anion Gap (12-20) BUN (9-16) mg/dL Creatinine (0.5-1.4) mg/dL Estim Creat Clear Calc Estimated GFR Random Glucose (60-115) mg/dL Calcium (8.4-10.2) mg/dL Total Bilirubin (0.0-1.0) mg/dL AST (5-31) U/L ALT (0-31) U/L Alkaline Phosphatase (39-117) U/L Total Protein (6.5-8.0) g/dL Albumin (3.5-5.0) g/dL Urine Color Yellow Urine Appearance Clear Urine pH 6.5 (5.0-9.0) Ur Specific [place] <= 1.005 (1.005-1.025) Urine Protein Negative (Neg-Trace) mg/dL Urine Glucose (UA) Negative (Negative) mg/dL Urine Ketones Negative (Negative) mg/dL Urine Blood Negative (Negative) Urine Nitrite Negative (Negative) Ur Leukocyte Esterase Trace H (Negative) Urine RBC 0-2 (0-2) /HPF Urine WBC 0-5 (0-5) /HPF Ur Squamous Epith Cells 0-2 (0-2) /HPF Urine Bacteria None Seen (None Seen) Hyaline Casts 0-2 (0-2) /LPF Urine Test (NEGATIVE) Urine Opiates Screen Not Detected (Not Detect) Urine Fentanyl Screen Not Detected (Not Detect) Ur Barbiturates Screen Not Detected (Not Detect) Valproic Acid 38.0 L (50.0-100.0) mcg/mL Ur Phencyclidine Scrn Not Detected (Not Detect) Ur Amphetamines Screen Not Detected (Not Detect) U Benzodiazepines Scrn Not Detected (Not Detect) [place] (0.60-1.20) mmol/L Urine Cocaine Screen Not Detected (Not Detect) U Marijuana (THC) Screen POSITIVE H (Not Detect) Ethyl Alcohol mg/dL 12/25/22 Range/Units 03:26 WBC (4.8-10.8) X10*3/uL RBC (4.20-5.50) X10*6/uL Hgb (12.0-16.0) g/dl Hct (37.0-47.0) % MCV (80.0-98.0) fL MCH (27.0-33.0) pg MCHC (31.0-35.0) g/dl RDW (11.0-16.0) % Plt Count (160-400) X10*3/uL MPV (9.4-12.3) fL Immature Gran % (Auto) (0.0-0.4) % Neut % (Auto) (45-73) % Lymph % (Auto) (20-40) % [place] % (Auto) (2-11) % Eos % (Auto) (0-4) % Baso % (Auto) (0-2) % Lymph # (Auto) (1.2-4.9) X10*3/uL [place] # (Auto) (0.1-1.2) X10*3/uL Eos # (Auto) (0.0-0.4) X10*3/uL Baso # (Auto) (0.0-0.2) X10*3/uL Abs Immat Gran (auto) (0.00-0.03) X10*3/uL Absolute Neuts (auto) (2.0-8.3) x10*3/uL Absolute Nucleated RBC (0.0-0.012) X10*3/uL Nucleated RBC % (auto) (0.0-0.2) /100WBC Sodium (135-145) mmol/L Potassium (3.3-5.1) mmol/L Chloride (96-108) mmol/L Carbon Dioxide (22-29) mmol/L Anion Gap (12-20) BUN (9-16) mg/dL Creatinine (0.5-1.4) mg/dL Estim Creat Clear Calc Estimated GFR Random Glucose (60-115) mg/dL Calcium (8.4-10.2) mg/dL Total Bilirubin (0.0-1.0) mg/dL AST (5-31) U/L ALT (0-31) U/L Alkaline Phosphatase (39-117) U/L Total Protein (6.5-8.0) g/dL Albumin (3.5-5.0) g/dL Urine Color Urine Appearance Urine pH (5.0-9.0) Ur Specific [place] (1.005-1.025) Urine Protein (Neg-Trace) mg/dL Urine Glucose (UA) (Negative) mg/dL Urine Ketones (Negative) mg/dL Urine Blood (Negative) Urine Nitrite (Negative) Ur Leukocyte Esterase (Negative) Urine RBC (0-2) /HPF Urine WBC (0-5) /HPF Ur Squamous Epith Cells (0-2) /HPF Urine Bacteria (None Seen) Hyaline Casts (0-2) /LPF Urine Test NEGATIVE (NEGATIVE) Urine Opiates Screen (Not Detect) Urine Fentanyl Screen (Not Detect) Ur Barbiturates Screen (Not Detect) Valproic Acid (50.0-100.0) mcg/mL Ur Phencyclidine Scrn (Not Detect) Ur Amphetamines Screen (Not Detect) U Benzodiazepines Scrn (Not Detect) [place] (0.60-1.20) mmol/L Urine Cocaine Screen (Not Detect) U Marijuana (THC) Screen (Not Detect) Ethyl Alcohol mg/dL Discharge Plan Discharge Clinical Impression: Bipolar 1 disorder Patient Disposition: Still a Patient Prescriptions: No Action clonidine HCl 0.1 mg tablet 0.1 mg PO TID lithium carbonate 300 mg tablet extended release 600 mg PO BID trazodone 100 mg tablet 100 mg PO BEDTIME divalproex 500 mg tablet extended release 24 hr 500 mg PO TID perphenazine 4 mg tablet 8 mg PO BID nicotine (polacrilex) 2 mg gum 2 mg PO Q2H PRN (Reason: Nicotine Cravings) Interventions: [place]-Suicide Risk Severity Scale Last Done: 12/25/22 02:49
[2022-12-25 03:31] LABS: MANUAL DIFF FLAG NO
[2022-12-25 03:35] LABS: Basophils Percent Auto 0.3 % (0-2); Eosinophils Absolute Auto 0.1 X10*3/uL (0.0-0.4); Eosinophils Percent Auto 0.7 % (0-4); Hematocrit 38.4 % (37.0-47.0); Imm Gran Abs Auto 0.02 X10*3/uL (0.00-0.03); Imm Gran Pct Auto 0.2 % (0.0-0.4); Lymphocytes Absolute Auto 2.8 X10*3/uL (1.2-4.9); Lymphocytes Percent Auto 30.4 % (20-40); Mean Corpuscular HGB Conc 33.9 g/dl (31.0-35.0); Mean Corpuscular Volume 91.4 fL (80.0-98.0); Mean Platelet Volume 9.7 fL (9.4-12.3); Monocytes Absolute Auto 0.5 X10*3/uL (0.1-1.2); Monocytes Percent Auto 5.6 % (2-11); Neutrophils Absolute Auto 5.7 x10*3/uL (2.0-8.3); Neutrophils Percent Auto 62.8 % (45-73); Platelet Count 238 X10*3/uL (160-400); Red Cell Distribution Width 11.9 % (11.0-16.0); White Blood Count 9.1 X10*3/uL (4.8-10.8)
[2022-12-25 03:38] LABS: UPreg QC Valid YES; Urine Pregnancy NEGATIVE (NEGATIVE)
[2022-12-25 03:47] LABS: Lithium 0.66 mmol/L (0.60-1.20)
[2022-12-25 03:49] LABS: Appearance Urine Clear; Color Urine Yellow; Glucose Urine UA Negative (Negative); Leukocyte Esterase Urine Trace (Negative); Nitrite Urine Negative (Negative); PH 6.5 (5.0-9.0); Specific Gravity - Urine <= 1.005 (1.005-1.025); UMIC TRIGGER UA YES; Urine Blood Negative (Negative); Urine Ketones Negative (Negative); Urine Protein Negative (Neg-Trace)
[2022-12-25 03:55] LABS: Bacteria Urine None Seen (None Seen); Hyaline Casts Urine 0-2 /LPF (0-2); RBC Urine 0-2 /HPF (0-2); Squamous Epithelial Cell Urine 0-2 /HPF (0-2); WBC Urine 0-5 /HPF (0-5)
[2022-12-25 04:00] LABS: Alanine Aminotransferase 12 U/L (0-31); Albumin Level 4.3 g/dL (3.5-5.0); Alkaline Phosphatase 46 U/L (39-117); Anion Gap 13 (12-20); Aspartate Amino Transferase 22 U/L (5-31); Bilirubin Total 0.2 mg/dL (0.0-1.0); Blood Urea Nitrogen 5 mg/dL (9-16); Calcium 9.9 mg/dL (8.4-10.2); Carbon Dioxide 25 mmol/L (22-29); Chloride 103 mmol/L (96-108); Creatinine Clr Calc Pharmacy 111.6; Estimated Glomerular Filt Rate > 60; Ethanol < 10 mg/dL; Glucose Random 114 mg/dL (60-115); Potassium 4.1 mmol/L (3.3-5.1); Sodium 137 mmol/L (135-145); Total Protein 7.6 g/dL (6.5-8.0)
[2022-12-25 04:07] LABS: Amphetamine Screen Urine Not Detected (Not Detect); Barbiturates, Urine Not Detected (Not Detect); Benzodiazepines Screen Urine Not Detected (Not Detect); Cannabinoid Screen Urine POSITIVE (Not Detect); Cocaine Screen Urine Not Detected (Not Detect); Fentanyl, urine Not Detected (Not Detect); Opiate Screen Urine Not Detected (Not Detect); Phencyclidine Screen Urine Not Detected (Not Detect)
[2022-12-25] MEDS: LORazepam 1 MG TABLET 2 MG PO (04:16)
--- NOTE | 2022-12-25 05:06 | PC.NURSE ---
Patient is currently in bed appears sleeping, no distress observed/reported at this time, patient at the time of arrival was anxious she thinks lithium is the cause however [place] level is normal, Ativan 2 mg po administered as ordered at 0416 with + effect, med rec completed/pending provider's approval, care consult ordered/pending evaluation, behavior non concerning, will continue to monitor.
--- NOTE | 2022-12-25 08:00 | PC.NURSE ---
assumed care of this pt at 0700. pt sleeping at the time of assuming care.
--- NOTE | 2022-12-25 10:15 | PC.NURSE ---
meds ordered by Dr. Kumar, meds pending verification by pharmacy.
[2022-12-25] MEDS: Lithium Carbonate ER 300 MG TABLET.ER 600 MG PO (11:34)
[2022-12-25] MEDS: Divalproex Sodium ER 500 MG TAB.ER.24H PO (11:34)
[2022-12-25] MEDS: Perphenazine 8 MG TABLET PO (11:34)
[2022-12-25] MEDS: cloNIDine HCL 0.1 MG TABLET PO (11:34)
--- NOTE | 2022-12-25 12:00 | PC.NURSE ---
meds given as documented after verification by pharmacy.
== END 2022-12-25 16:18 | disposition home or self-care (01) ==
PROVIDERS: Internal Medicine; Emergency Provider Emergency Medicine Emergency Medical Services
DX: F31.9 Bipolar disorder, unspecified (principal); R53.83 Other fatigue; F41.9 Anxiety disorder, unspecified; F43.12 Post-traumatic stress disorder, chronic; F20.9 Schizophrenia, unspecified; F17.210 Nicotine dependence, cigarettes, uncomplicated; F12.90 Cannabis use, unspecified, uncomplicated; Z79.899 Other long term (current) drug therapy
CPT/HCPCS: 36415; 80053; 80164; 80178; 80307; 81001; 81025; 85025; 99284; 99285; S9485

== ENCOUNTER 2022-12-28 15:05 | Inpatient (IN) | payer OTHER, MEDICAID, SELFPAY ==
[2022-12-28 15:24] VITALS: BP 120/80; PULSE 108; RESP 18; TEMP 36.1; O2SAT 98; BMI 22.6
--- NOTE | 2022-12-28 16:17 | ECG_ITS ---
Test Reason : crisis Blood Pressure : / mmHG Vent. Rate : 085 BPM Atrial Rate : 085 BPM P-R Int : 176 ms QRS Dur : 070 ms QT Int : 346 ms P-R-T Axes : 072 080 075 degrees QTc Int : 411 ms Normal sinus rhythm with sinus arrhythmia Nonspecific ST abnormality Abnormal ECG When compared with ECG of 07-DEC-2022 07:36, No significant change was found Referred By: Chuckie Villaseñor Electronically Signed By:DAMIEN RAMIREZ
--- NOTE | 2022-12-28 16:24 | ED.PSYCH ---
HPI - Psych General Chief Complaint: Psychiatric Symptoms Stated Complaint: crisis Time Seen by Provider: 12/28/22 16:06 Source: patient Limitations: no limitations History of Present Illness HPI Narrative: 22-year-old female with history of bipolar, schizophrenia presents with paranoia. Patient reports that she feels paranoid about what people's intentions are. She is not more specific than that. She is reportedly having auditory and visual hallucinations. There is no clear relieving features. She does report having stopped her medications this past weekend. She reports feeling like she is allergic to lithium. Patient reports her symptoms as moderate to severe. She denies SI or HI. Patient admits to smoking marijuana from time to time but denies alcohol or additional drug abuse. Patient also has been experiencing several weeks of palpitations. It appears to be associated with stress and anxiety. She feels like her heart is pounding out of her chest but denies any chest pain, shortness breath, palpable lightheadedness or dizziness. Related Data Home Medications Medication Instructions Recorded Confirmed clonidine HCl 0.1 mg tablet 0.1 mg PO TID 12/25/22 12/28/22 divalproex 500 mg tablet,extended 500 mg PO TID 12/25/22 12/28/22 release 24 hr lithium carbonate 300 mg 1,200 mg PO BEDTIME 12/25/22 12/28/22 tablet,extended release nicotine (polacrilex) 2 mg gum 2 mg PO Q2H PRN Nicotine Cravings 12/25/22 12/28/22 perphenazine 4 mg tablet 8 mg PO TID 12/25/22 12/28/22 trazodone 100 mg tablet 100 mg PO BEDTIME 12/25/22 12/28/22 Allergies Allergy/AdvReac Type Severity Reaction Status Date / Time insect venom [MOSQUITO] Allergy Unknown UNKNOWN Verified 12/06/22 18:37 paliperidone [From INVEGA] Allergy Unknown DYSTONIC Verified 12/06/22 18:37 REACTION haloperidol [HALOPERIDOL] AdvReac Intermediate Dystonic Verified 12/06/22 18:37 reaction Review of Systems Review of Systems: CONSTITUTIONAL: Denies weight loss, fever and chills. HEENT: Denies changes in vision and hearing. RESPIRATORY: Denies SOB and cough. CV: + palpitations no CP. GI: Denies abdominal pain, nausea, vomiting and diarrhea. : Denies dysuria and urinary frequency. MSK: Denies myalgia and joint pain. SKIN: Denies rash and pruritus. NEUROLOGICAL: Denies headache and syncope. PSYCHIATRIC: See HPI All other ROS are negative unless in HPI PMFSH Past Medical History Medical History Anxiety Bipolar 1 disorder Bipolar disorder Depression Social History Social History Household Members: Family Household Members Other:: Resides at [facility] currently Housing: Apartment Do you presently have visiting nurse or other home services: No Alcohol intake: never Patient Tobacco Use Status: Current everyday Tobacco user Tobacco use type: Cigarette and Smokeless Tobacco Cigarette Packs Per Day: 2 Cigarettes Per Day: 40.0 Years Smoked: 2 years Smoked in Last 30 Days: Yes e-Cigarette/Vaping Use: Currently Using Second Hand Smoke Exposure: No Use of substances other than those prescribed or required for medical reasons: Yes Substance Use Type: Marijuana Advance Directives: No Advance Directives Information Provided: Yes Healthcare Proxy: No Guardian: No service: No Sexual orientation: Bisexual Physical Exam Vital Signs: Vital Signs: Last Vital Signs Temp 98.2 F 12/28/22 21:01 Pulse 63 12/28/22 21:01 Resp 16 12/28/22 21:01 BP 104/61 12/28/22 21:01 Pulse Ox 99 12/28/22 21:01 O2 Del Method Room Air 12/28/22 21:01 BMI result Body Mass Index 22.6 GEN: Well developed, no acute distress, alert, oriented HEENT: Normocephalic, atraumatic, normal external ears, nose appears normal Eyes: Normal to appearance Neck: Supple, no lymphadenopathy Respiratory: Talks in complete sentences, no respiratory distress Extremities: No clubbing cyanosis or edema Neurologic: No focal neurologic deficits, cranial nerves 2-12 intact, gait normal Skin: No rash Course Course Course Narrative: it is 7:15 p.m.. Patient is medically cleared for Behavioral Health evaluation. It. That she will be an inpatient bed search for paranoia. Will place the patient in observation at this time. Reevaluation(s) Reevaluation #1: patient will be a respite bed search Time: 20:44 Reevaluation #2: transition of care to my colleague Dr. Combs pending care team in AM Time: 02:00 Medications Administered Generic Name Dose Route Start Last Admin Trade Name Alyssa PRN Reason Stop Dose Admin Clonidine HCl 0.1 mg 12/28/22 21:00 12/28/22 21:04 Clonidine Hcl 0.1 Mg Tablet PO 0.1 mg TID GAVIOTA Administration Protocol Divalproex Sodium 500 mg 12/28/22 21:00 12/28/22 21:03 Divalproex Sodium Er 500 Mg Tab.Er.24h PO 500 mg TID GAVIOTA Administration [place] Carbonate 1,200 mg 12/28/22 21:00 12/28/22 21:09 [place] Carbonate Er 300 Mg Tablet.Er PO Not Given BEDTIME GAVIOTA Perphenazine 8 mg 12/28/22 21:00 12/28/22 21:04 Perphenazine 8 Mg Tablet PO 8 mg TID GAVIOTA Administration Trazodone HCl 100 mg 12/28/22 21:00 12/28/22 21:03 Trazodone Hcl 100 Mg Tablet PO 100 mg BEDTIME GAVIOTA Administration Medical Decision Making Medical Decision Making [facility] Narrative: patient presents with hallucinations and paranoia. Differential diagnosis includes schizophrenia, bipolar, depression, anxiety, drug-induced psychosis. Plan will be to medically clear patient for behavioral health evaluation. Patient is also experiencing palpitations. Differential diagnosis includes atrial fibrillation, SVT, PAC, PVC, sinus arrhythmia, stress, anxiety. Plan will be to obtain an EKG, routine laboratory tests and testing to rule out anemia or other electrolyte abnormalities. Differential Diagnosis Differential Diagnoses: The differential diagnosis associated with the presentation includes ( See above) Admission/Observation Consideration of admission/observation: Escalation of care including admission/observation considered Consult Healthcare Provider Management of the patient was discussed with: Behavioral Health Provider Lab Data [facility] Lab Attestation statement: I reviewed the patient's lab results. 12/28/22 18:17 12/28/22 18:17 Labs: Lab Results 12/28/22 12/28/22 12/28/22 Range/Units 16:36 16:36 16:36 WBC (4.8-10.8) X10*3/uL RBC (4.20-5.50) X10*6/uL Hgb (12.0-16.0) g/dl Hct (37.0-47.0) % MCV (80.0-98.0) fL MCH (27.0-33.0) pg MCHC (31.0-35.0) g/dl RDW (11.0-16.0) % Plt Count (160-400) X10*3/uL MPV (9.4-12.3) fL Immature Gran % (Auto) (0.0-0.4) % Neut % (Auto) (45-73) % Lymph % (Auto) (20-40) % [place] % (Auto) (2-11) % Eos % (Auto) (0-4) % Baso % (Auto) (0-2) % Lymph # (Auto) (1.2-4.9) X10*3/uL [place] # (Auto) (0.1-1.2) X10*3/uL Eos # (Auto) (0.0-0.4) X10*3/uL Baso # (Auto) (0.0-0.2) X10*3/uL Abs Immat Gran (auto) (0.00-0.03) X10*3/uL Absolute Neuts (auto) (2.0-8.3) x10*3/uL Absolute Nucleated RBC (0.0-0.012) X10*3/uL Nucleated RBC % (auto) (0.0-0.2) /100WBC Sodium (135-145) mmol/L Potassium (3.3-5.1) mmol/L Chloride (96-108) mmol/L Carbon Dioxide (22-29) mmol/L Anion Gap (12-20) BUN (9-16) mg/dL Creatinine (0.5-1.4) mg/dL Estim Creat Clear Calc Estimated GFR Random Glucose (60-115) mg/dL Calcium (8.4-10.2) mg/dL Total Bilirubin (0.0-1.0) mg/dL AST (5-31) U/L ALT (0-31) U/L Alkaline Phosphatase (39-117) U/L Total Protein (6.5-8.0) g/dL Albumin (3.5-5.0) g/dL Urine Color Yellow Urine Appearance Cloudy Urine pH 6.5 (5.0-9.0) Ur Specific [place] 1.015 (1.005-1.025) Urine Protein Trace (Neg-Trace) mg/dL Urine Glucose (UA) Negative (Negative) mg/dL Urine Ketones Negative (Negative) mg/dL Urine Blood Negative (Negative) Urine Nitrite Negative (Negative) Ur Leukocyte Esterase Small (1+) H (Negative) Urine RBC 0-2 (0-2) /HPF Urine WBC 6-10 H (0-5) /HPF Ur Squamous Epith Cells 11-20 (0-2) /HPF Urine Bacteria 2+ (None Seen) Hyaline Casts 6-10 (0-2) /LPF Urine Test NEGATIVE (NEGATIVE) Urine Opiates Screen Not Detected (Not Detect) Urine Fentanyl Screen Not Detected (Not Detect) Ur Barbiturates Screen Not Detected (Not Detect) Ur Phencyclidine Scrn Not Detected (Not Detect) Ur Amphetamines Screen Not Detected (Not Detect) U Benzodiazepines Scrn Not Detected (Not Detect) Urine Cocaine Screen Not Detected (Not Detect) U Marijuana (THC) Screen POSITIVE H (Not Detect) Ethyl Alcohol mg/dL 12/28/22 12/28/22 Range/Units 18:17 18:17 WBC 7.2 (4.8-10.8) X10*3/uL RBC 4.27 (4.20-5.50) X10*6/uL Hgb 13.3 (12.0-16.0) g/dl Hct 39.9 (37.0-47.0) % MCV 93.4 (80.0-98.0) fL MCH 31.1 (27.0-33.0) pg MCHC 33.3 (31.0-35.0) g/dl RDW 12.0 (11.0-16.0) % Plt Count 228 (160-400) X10*3/uL MPV 10.1 (9.4-12.3) fL Immature Gran % (Auto) 0.8 H (0.0-0.4) % Neut % (Auto) 51.4 (45-73) % Lymph % (Auto) 41.0 H (20-40) % [place] % (Auto) 5.6 (2-11) % Eos % (Auto) 0.6 (0-4) % Baso % (Auto) 0.6 (0-2) % Lymph # (Auto) 2.9 (1.2-4.9) X10*3/uL [place] # (Auto) 0.4 (0.1-1.2) X10*3/uL Eos # (Auto) 0.0 (0.0-0.4) X10*3/uL Baso # (Auto) 0.0 (0.0-0.2) X10*3/uL Abs Immat Gran (auto) 0.06 H (0.00-0.03) X10*3/uL Absolute Neuts (auto) 3.7 (2.0-8.3) x10*3/uL Absolute Nucleated RBC 0.000 (0.0-0.012) X10*3/uL Nucleated RBC % (auto) 0.0 (0.0-0.2) /100WBC Sodium 141 (135-145) mmol/L Potassium 4.4 (3.3-5.1) mmol/L Chloride 108 (96-108) mmol/L Carbon Dioxide 28 (22-29) mmol/L Anion Gap 9 L (12-20) BUN 5 L (9-16) mg/dL Creatinine 0.74 (0.5-1.4) mg/dL Estim Creat Clear Calc 111.6 Estimated GFR > 60 Random Glucose 121 H (60-115) mg/dL Calcium 9.9 (8.4-10.2) mg/dL Total Bilirubin 0.3 (0.0-1.0) mg/dL AST 21 (5-31) U/L ALT 14 (0-31) U/L Alkaline Phosphatase 43 (39-117) U/L Total Protein 7.2 (6.5-8.0) g/dL Albumin 4.2 (3.5-5.0) g/dL Urine Color Urine Appearance Urine pH (5.0-9.0) Ur Specific [place] (1.005-1.025) Urine Protein (Neg-Trace) mg/dL Urine Glucose (UA) (Negative) mg/dL Urine Ketones (Negative) mg/dL Urine Blood (Negative) Urine Nitrite (Negative) Ur Leukocyte Esterase (Negative) Urine RBC (0-2) /HPF Urine WBC (0-5) /HPF Ur Squamous Epith Cells (0-2) /HPF Urine Bacteria (None Seen) Hyaline Casts (0-2) /LPF Urine Test (NEGATIVE) Urine Opiates Screen (Not Detect) Urine Fentanyl Screen (Not Detect) Ur Barbiturates Screen (Not Detect) Ur Phencyclidine Scrn (Not Detect) Ur Amphetamines Screen (Not Detect) U Benzodiazepines Scrn (Not Detect) Urine Cocaine Screen (Not Detect) U Marijuana (THC) Screen (Not Detect) Ethyl Alcohol < 10 mg/dL Prescription Management I considered prescription management with: Other ( psychiatric medications) Discharge Plan Discharge Clinical Impression: Bipolar 1 disorder, Chronic schizophrenia, Chronic post-traumatic stress disorder (PTSD) Patient Disposition: Still a Patient Prescriptions: No Action clonidine HCl 0.1 mg tablet 0.1 mg PO TID lithium carbonate 300 mg tablet extended release 1,200 mg PO BEDTIME trazodone 100 mg tablet 100 mg PO BEDTIME divalproex 500 mg tablet extended release 24 hr 500 mg PO TID perphenazine 4 mg tablet 8 mg PO TID nicotine (polacrilex) 2 mg gum 2 mg PO Q2H PRN (Reason: Nicotine Cravings) Interventions: Gracey-Suicide Risk Severity Scale Last Done: 12/28/22 15:30
[2022-12-28 16:53] LABS: UPreg QC Valid YES; Urine Pregnancy NEGATIVE (NEGATIVE)
[2022-12-28 16:56] LABS: Appearance Urine Cloudy; Color Urine Yellow; Glucose Urine UA Negative (Negative); Leukocyte Esterase Urine Small (1+) (Negative); Nitrite Urine Negative (Negative); PH 6.5 (5.0-9.0); Specific Gravity - Urine 1.015 (1.005-1.025); UMIC TRIGGER UA YES; Urine Blood Negative (Negative); Urine Ketones Negative (Negative); Urine Protein Trace mg/dL (Neg-Trace)
[2022-12-28 17:06] LABS: Amphetamine Screen Urine Not Detected (Not Detect); Barbiturates, Urine Not Detected (Not Detect); Benzodiazepines Screen Urine Not Detected (Not Detect); Cannabinoid Screen Urine POSITIVE (Not Detect); Cocaine Screen Urine Not Detected (Not Detect); Fentanyl, urine Not Detected (Not Detect); Opiate Screen Urine Not Detected (Not Detect); Phencyclidine Screen Urine Not Detected (Not Detect)
[2022-12-28 17:07] LABS: Bacteria Urine 2+ (None Seen); RBC Urine 0-2 /HPF (0-2)
[2022-12-28 18:21] LABS: MANUAL DIFF FLAG NO
[2022-12-28 18:41] LABS: Alanine Aminotransferase 14 U/L (0-31); Albumin Level 4.2 g/dL (3.5-5.0); Alkaline Phosphatase 43 U/L (39-117); Anion Gap 9 (12-20); Aspartate Amino Transferase 21 U/L (5-31); Bilirubin Total 0.3 mg/dL (0.0-1.0); Blood Urea Nitrogen 5 mg/dL (9-16); Calcium 9.9 mg/dL (8.4-10.2); Carbon Dioxide 28 mmol/L (22-29); Chloride 108 mmol/L (96-108); Creatinine Clr Calc Pharmacy 111.6; Estimated Glomerular Filt Rate > 60; Ethanol < 10 mg/dL; Glucose Random 121 mg/dL (60-115); Potassium 4.4 mmol/L (3.3-5.1); Sodium 141 mmol/L (135-145); Total Protein 7.2 g/dL (6.5-8.0)
[2022-12-28 18:43] LABS: Basophils Percent Auto 0.6 % (0-2); Eosinophils Percent Auto 0.6 % (0-4); Hematocrit 39.9 % (37.0-47.0); Hemoglobin 13.3 g/dl (12.0-16.0); Imm Gran Abs Auto 0.06 X10*3/uL (0.00-0.03); Imm Gran Pct Auto 0.8 % (0.0-0.4); Lymphocytes Absolute Auto 2.9 X10*3/uL (1.2-4.9); Mean Corpuscular HGB Conc 33.3 g/dl (31.0-35.0); Mean Corpuscular Hemoglobin 31.1 pg (27.0-33.0); Mean Corpuscular Volume 93.4 fL (80.0-98.0); Mean Platelet Volume 10.1 fL (9.4-12.3); Monocytes Absolute Auto 0.4 X10*3/uL (0.1-1.2); Monocytes Percent Auto 5.6 % (2-11); Neutrophils Absolute Auto 3.7 x10*3/uL (2.0-8.3); Neutrophils Percent Auto 51.4 % (45-73); Platelet Count 228 X10*3/uL (160-400); Red Blood Count 4.27 X10*6/uL (4.20-5.50); White Blood Count 7.2 X10*3/uL (4.8-10.8)
--- NOTE | 2022-12-28 18:48 | PC.NURSE ---
Late Note: pt a&o x4, pleasant, calm, and cooperative. appears restless but pleasant. reports having jumbled thoughts after taking herself off of her medications over the weekend because they were controlling her. pt reports feeling worse since getting off meds, with today increasingly not feeling herself. denies SI/HI. EKG obtained, labs drawn, UA sent to lab. pt currently resting quietly in room in no apparent distress. all pt needs met cassi. wctm.
--- NOTE | 2022-12-28 19:15 | PHA.MEDREC ---
Pharmacy Consult ? Medication Reconciliation Pharmacy has reviewed the medication reconciliation completed by Adriano.
[2022-12-28 21:01] VITALS: BP 104/61; PULSE 63; RESP 16; TEMP 36.8; O2SAT 99
[2022-12-28] MEDS: traZODone HCL 100 MG TABLET PO (21:03)
[2022-12-28] MEDS: Divalproex Sodium ER 500 MG TAB.ER.24H PO (21:03)
[2022-12-28] MEDS: cloNIDine HCL 0.1 MG TABLET PO (21:04)
[2022-12-28] MEDS: Perphenazine 8 MG TABLET PO (21:04)
--- NOTE | 2022-12-28 21:09 | PC.NURSE ---
Patient refused HS [place] reported it makes her jittery. Calm and quiet. no distress observed/reported, disposition per care team is Respite bed search, VSS, behavior non concerning, labs completed/resulted, [place] level pending 12/29/22 at 099, will continue to monitor.
[2022-12-29 06:43] VITALS: RESP 16
[2022-12-29] MEDS: Perphenazine 8 MG TABLET PO ×3 (07:26→20:12)
[2022-12-29] MEDS: cloNIDine HCL 0.1 MG TABLET PO ×3 (07:26→20:12)
[2022-12-29] MEDS: Divalproex Sodium ER 500 MG TAB.ER.24H PO (07:30)
--- NOTE | 2022-12-29 07:30 | PC.NURSE ---
Calm and cooperative, morning meds as ordered, good po intake and appetite for breakfast.
[2022-12-29] MEDS: Nicotine Polacrilex 2 MG GUM BUCCAL ×3 (08:15→12:49)
--- NOTE | 2022-12-29 09:02 | HE.PHANOTE ---
RE METHADONE PT GETS 140 MG FROM [facility], LAST GIVEN 12/27/22 @[id number] INDER
[2022-12-29 09:51] LABS: Lithium 0.11 mmol/L (0.60-1.20)
--- NOTE | 2022-12-29 11:36 | PC.NURSE ---
calm and cooperative, ambulating on unit, listening to music. Patient with paranoid thoughts about FBI/ government following her.
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
[2022-12-29] MEDS: LORazepam 1 MG TABLET 2 MG PO (14:16)
[2022-12-29 14:50] LABS: COVID-19 Test Negative (Negative); IDNOW Serial# BCCEAD1C
--- NOTE | 2022-12-29 16:35 | PC.NURSE ---
Report given to accepting unit
[2022-12-29 17:00] VITALS: BP 95/52; PULSE 83; TEMP 36.2; O2SAT 100
--- NOTE | 2022-12-29 17:15 | PC.ADMIT ---
Addendum entered by Norma Beard RN 12/29/22 19:32: Per pt placed on 5 min checks locked bathroom for safety Original Note: Lauren is a 22-year-old female admitted to on a CV for treatment of bipolar, increased paranoia, and noncompliance with medications. Tox screen positive for THC, [place] level was low at 0.11. Pt presented to [facility] [place] ED via ambulance for increased anxiety and AVH. Pt stated she stopped taking her lithium because she felt it was poisoning her. Upon arrival to , pt appeared drowsy and was limited with her answers to questions. Pt denies SI/HI but endorses AH/VH. Pt complied with skin check but refused to participate in the rest of admission assessment and asked to sleep. Pt is otherwise pleasant and oriented to self and place. Pt was recently discharged from on 12/15/22. Pt placed on 15 minute safety checks.
[2022-12-29 20:08] VITALS: BP 95/58; PULSE 85; RESP 18; TEMP 36.5; O2SAT 100
[2022-12-29] MEDS: Divalproex Sodium ER 500 MG TAB.ER.24H 1500 MG PO (20:12)
[2022-12-29] MEDS: traZODone HCL 100 MG TABLET PO (20:13)
--- NOTE | 2022-12-29 20:15 | PC.NURSE ---
pt refused lithobid stating it does not mix well in my bloodstream and then I feel like I have bugs crawling .
[2022-12-29] MEDS: traZODone HCL 50 MG TABLET PO (23:51)
[2022-12-29] MEDS: hydrOXYzine HCL 25 MG TABLET PO (23:51)
[2022-12-30 08:26] VITALS: BP 96/53; PULSE 90; RESP 16; TEMP 36.3; O2SAT 98
[2022-12-30] MEDS: cloNIDine HCL 0.1 MG TABLET PO ×2 (08:29→15:00)
[2022-12-30] MEDS: Perphenazine 8 MG TABLET PO ×3 (08:29→20:40)
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
[2022-12-30 09:32] LABS: Estimated Average Glucose 94 mg/dL; Hemoglobin A1c % 4.9 % (<6.0)
[2022-12-30 09:41] LABS: Alanine Aminotransferase 13 U/L (0-31); Albumin Level 4.3 g/dL (3.5-5.0); Alkaline Phosphatase 46 U/L (39-117); Anion Gap 11 (12-20); Aspartate Amino Transferase 22 U/L (5-31); Bilirubin Total 0.3 mg/dL (0.0-1.0); Blood Urea Nitrogen 8 mg/dL (9-16); Calcium 9.6 mg/dL (8.4-10.2); Carbon Dioxide 26 mmol/L (22-29); Chloride 103 mmol/L (96-108); Cholesterol 139 mg/dL (<200); Creatinine Clr Calc Pharmacy 108.6; Estimated Glomerular Filt Rate > 60; Glucose Fasting 126 mg/dL (60-99); HDL Cholesterol 53 mg/dL (>40); LDL Cholesterol Calculated 77 mg/dL (<100); Potassium 4.2 mmol/L (3.3-5.1); Sodium 136 mmol/L (135-145); Total Protein 7.2 g/dL (6.5-8.0); Triglycerides 49 mg/dL (<150)
[2022-12-30 10:00] LABS: Vitamin B12 633 pg/mL (200-900)
[2022-12-30] MEDS: hydrOXYzine HCL 25 MG TABLET PO ×2 (13:57→21:20)
[2022-12-30] MEDS: Nicotine Polacrilex 2 MG GUM BUCCAL ×3 (16:18→20:40)
[2022-12-30 18:00] VITALS: BP 87/57; PULSE 72; RESP 18; TEMP 36.4; O2SAT 98
[2022-12-30] MEDS: Divalproex Sodium ER 500 MG TAB.ER.24H 1500 MG PO (20:40)
[2022-12-30] MEDS: traZODone HCL 100 MG TABLET PO (20:40)
[2022-12-30] MEDS: Acetaminophen 325 MG TABLET 650 MG PO (21:20)
[2022-12-31] MEDS: Nicotine Polacrilex 2 MG GUM BUCCAL ×6 (05:12→18:29)
[2022-12-31 07:00] VITALS: RESP 18; BMI 22.0
[2022-12-31 07:33] VITALS: BP 82/44; PULSE 88
[2022-12-31 08:15] VITALS: RESP 18
[2022-12-31] MEDS: Perphenazine 8 MG TABLET PO ×3 (08:41→21:24)
[2022-12-31] MEDS: hydrOXYzine HCL 25 MG TABLET PO ×2 (08:42→21:24)
--- NOTE | 2022-12-31 09:57 | HO.PSYCHPN ---
Subjective Subjective Date of Service: 12/31/22 Reason For Visit: todd Subjective Notes: Conditional Voluntary Interim History: Reviewed in team and . Patient reports doing better than when I first came in . Patient signed 3 day yesterday but asked to retract 3 day, which she did; but then signed another 3 day one hour later. Pt stated, I signed the 3 day because I wanted control again . Pt reports she is willing to take half of her lithium dose but does not want 1,200mg because she believes depakote is enough . Denies SI/HI/VH/AH at this time. Medication Compliance: Yes Side effects from medications: No Attending Groups: Yes Review of Systems Constitutional: Reports as per HPI Eyes: Reports as per HPI Reports as per HPI Cardiovascular: Reports as per HPI Respiratory: Reports as per HPI Gastrointestinal: Reports as per HPI Genitourinary: Reports as per HPI Musculoskeletal: Reports as per HPI Skin/Breast: Reports as per HPI Reports as per HPI Psychiatric: Reports as per HPI Endocrine: Reports as per HPI Hematologic/Lymphatic: Reports as per HPI Allergic/Immunologic: Reports as per HPI Mental Status Exam Mental Status Exam Narrative: Pt is alert and oriented; behavior is cooperative, friendly and calm; dressed in casual attire; mood is described as better ; eye contact appropriate; Speech is normal rate, volume and prosody and not pressured; no psychomotor agitation/retardation present; thought process is organized and goal directed; Thought content is on tx; otherwise pertinent to relevant topics and without any delusional content, paranoid ideations or grandiosity; denies SI/HI. There is no evidence of perceptual disturbance. Patients insight and judgment are poor but improving. Diagnostics Vital Signs (24Hr): Vital Signs - 24 hr 12/30/22 18:00 12/31/22 07:33 Temperature 97.6 F Pulse Rate 72 88 Respiratory Rate 18 Blood Pressure 87/57 L 82/44 L Pulse Oximetry 98 Oxygen Delivery Method Room Air BMI result Body Mass Index 22.6 Labs 12/28/22 18:17 12/30/22 08:59 Labs: Laboratory Results - last 48 hr 12/29/22 12/30/22 12/30/22 14:17 08:59 08:59 Sodium 136 Potassium 4.2 Chloride 103 Carbon Dioxide 26 Anion Gap 11 L BUN 8 L Creatinine 0.76 Estim Creat Clear Calc 108.6 Estimated GFR > 60 Fasting Glucose 126 H Estimat Average Glucose 94 Hemoglobin A1c % 4.9 Calcium 9.6 Total Bilirubin 0.3 AST 22 ALT 13 Alkaline Phosphatase 46 Total Protein 7.2 Albumin 4.3 Triglycerides 49 Cholesterol 139 LDL Cholesterol, Calc 77 HDL Cholesterol 53 Vitamin B12 TSH 2.00 COVID-19 (SIENNA) Negative COVID-19 Clin Com See Note 12/30/22 08:59 Sodium Potassium Chloride Carbon Dioxide Anion Gap BUN Creatinine Estim Creat Clear Calc Estimated GFR Fasting Glucose Estimat Average Glucose Hemoglobin A1c % Calcium Total Bilirubin AST ALT Alkaline Phosphatase Total Protein Albumin Triglycerides Cholesterol LDL Cholesterol, Calc HDL Cholesterol Vitamin B12 633 TSH COVID-19 (SIENNA) COVID-19 Clin Com Medications Medications Current Medications Acetaminophen (Acetaminophen 325 Mg Tablet) 650 mg PO Q6H PRN PRN Reason: Headache/Pain Mild Scale (1-3) Last Admin: 12/30/22 21:20 Dose: 650 mg Al Hydroxide/Mg Hydroxide (Magnesium Hydrox/Alum Hydrox 30 Ml Oral.Susp) 30 ml PO Q6H PRN PRN Reason: Heartburn/Nausea Clonidine HCl (Clonidine Hcl 0.1 Mg Tablet) 0.1 mg PO TID [facility]; Protocol Last Admin: 12/30/22 20:41 Dose: Not Given Divalproex Sodium (Divalproex Sodium Er 500 Mg Tab.Er.24h) 1,500 mg PO BEDTIME [place] Last Admin: 12/30/22 20:40 Dose: 1,500 mg Hydroxyzine HCl (Hydroxyzine Hcl 25 Mg Tablet) 25 mg PO Q6H PRN PRN Reason: Anxiety Last Admin: 12/31/22 08:42 Dose: 25 mg [place] Carbonate ([place] Carbonate Er 300 Mg Tablet.Er) 1,200 mg PO BEDTIME [facility] Last Admin: 12/30/22 20:43 Dose: Not Given Magnesium Hydroxide (Milk Of Magnesia 30 Ml Oral.Susp) 30 ml PO DAILY PRN PRN Reason: Constipation Nicotine Polacrilex (Nicotine Polacrilex 2 Mg Gum) 2 mg BUCCAL Q2H PRN PRN Reason: Nicotine Cravings Last Admin: 12/31/22 09:55 Dose: 2 mg Perphenazine (Perphenazine 8 Mg Tablet) 8 mg PO TID [place] Last Admin: 12/31/22 08:41 Dose: 8 mg Trazodone HCl (Trazodone Hcl 100 Mg Tablet) 100 mg PO BEDTIME [facility] Last Admin: 12/30/22 20:40 Dose: 100 mg Trazodone HCl (Trazodone Hcl 50 Mg Tablet) 50 mg PO BEDTIME PRN PRN Reason: Insomnia Last Admin: 12/29/22 23:51 Dose: 50 mg Allergies Allergies Allergy/AdvReac Type Severity Reaction Status Date / Time insect venom [MOSQUITO] Allergy Unknown UNKNOWN Verified 12/06/22 18:37 paliperidone [From INVEGA] Allergy Unknown DYSTONIC Verified 12/06/22 18:37 REACTION haloperidol [HALOPERIDOL] AdvReac Intermediate Dystonic Verified 12/06/22 18:37 reaction Assessment & Plan Assessment & Plan (1) Bipolar 1 disorder: Status: Acute Code(s): F31.9 - Bipolar disorder, unspecified (2) Chronic post-traumatic stress disorder (PTSD): Status: Acute Code(s): F43.12 - Post-traumatic stress disorder, chronic Plan Patient is a 22 year old female with hx of Bipolar D/O and PTSD, and was just discharged from on 12/15/2022 , who presented to [facility] [place] [facility] via ambulance with c/o increased auditory hallucinations and anxiety d/t medication nonadherence. Plan: CV 5 minute safety checks Continue home medications Encourage medication adherence Referral to [place] [facility] 12/31: Patient reports doing better than when I first came in . Patient signed 3 day yesterday but asked to retract 3 day, which she did; but then signed another 3 day one hour later. Pt stated, I signed the 3 day because I wanted control again . Pt reports she is willing to take half of her lithium dose but does not want 1,200mg because she believes depakote is enough . Denies SI/HI/VH/AH at this time. Patient educated on: diagnosis, medication risk/benefits and therapeutic strategies Informed Consent: understands Reason for continued inpatient stay Substantial Risk for: med/psych decompensation Time Spent With Patient Time: Total time managing care of this patient today _30___ minutes.
[2022-12-31] MEDS: Lithium Carbonate ER 300 MG TABLET.ER 600 MG PO (11:06)
[2022-12-31 15:06] VITALS: BP 101/61; PULSE 90; RESP 18; TEMP 36.7; O2SAT 97
[2022-12-31] MEDS: cloNIDine HCL 0.1 MG TABLET PO ×2 (15:10→21:23)
[2022-12-31] MEDS: Perphenazine 4 MG TABLET PO (15:44)
[2022-12-31 21:16] VITALS: BP 110/66; PULSE 85; RESP 18; TEMP 36.8; O2SAT 100
[2022-12-31] MEDS: Acetaminophen 325 MG TABLET 650 MG PO (21:22)
[2022-12-31] MEDS: traZODone HCL 50 MG TABLET PO (21:22)
[2022-12-31] MEDS: traZODone HCL 100 MG TABLET PO (21:23)
[2022-12-31] MEDS: Divalproex Sodium ER 500 MG TAB.ER.24H 1500 MG PO (21:23)
[2023-01-01] MEDS: Nicotine Polacrilex 2 MG GUM BUCCAL ×6 (06:19→20:38)
[2023-01-01] MEDS: hydrOXYzine HCL 25 MG TABLET PO ×3 (06:19→21:27)
[2023-01-01] MEDS: Perphenazine 8 MG TABLET PO ×3 (08:59→20:35)
[2023-01-01] MEDS: Acetaminophen 325 MG TABLET 650 MG PO (08:59)
[2023-01-01 09:10] VITALS: BP 90/58; PULSE 69; RESP 16; TEMP 36.1; O2SAT 100
--- NOTE | 2023-01-01 09:37 | HO.PSYCHPN ---
Subjective Subjective Date of Service: 01/01/23 Reason For Visit: todd Subjective Notes: Conditional Voluntary Interim History: Reviewed in team and . Patient retracted 3 day notice. Patient reports she is hoping the bed at the residential will be ready soon . She is requesting to no longer take lithium but states she is willing to take anything else . Depakote labs to be drawn Wednesday night. Patient future oriented; discussed wanting to find a job. Sleeping well. Social with peers and staff. Medication Compliance: Yes Side effects from medications: No Attending Groups: Yes Review of Systems Review of Systems CONSTITUTIONAL: Denies weight loss, fever and chills. HEENT: Denies changes in vision and hearing. RESPIRATORY: Denies SOB and cough. CV: + palpitations no CP. GI: Denies abdominal pain, nausea, vomiting and diarrhea. : Denies dysuria and urinary frequency. MSK: Denies myalgia and joint pain. SKIN: Denies rash and pruritus. NEUROLOGICAL: Denies headache and syncope. PSYCHIATRIC: See HPI All other ROS are negative unless in HPI Constitutional: Reports as per HPI Eyes: Reports as per HPI Reports as per HPI Cardiovascular: Reports as per HPI Respiratory: Reports as per HPI Gastrointestinal: Reports as per HPI Genitourinary: Reports as per HPI Musculoskeletal: Reports as per HPI Skin/Breast: Reports as per HPI Reports as per HPI Psychiatric: Reports as per HPI Endocrine: Reports as per HPI Hematologic/Lymphatic: Reports as per HPI Allergic/Immunologic: Reports as per HPI Mental Status Exam Mental Status Exam Narrative: Pt is alert and oriented; behavior is cooperative, friendly and calm; dressed in casual attire; mood is described as better ; eye contact appropriate; Speech is normal rate, volume and prosody and not pressured; no psychomotor agitation/retardation present; thought process is organized and goal directed; Thought content is on tx; otherwise pertinent to relevant topics and without any delusional content, paranoid ideations or grandiosity; denies SI/HI. There is no evidence of perceptual disturbance. Patients insight and judgment are poor but improving. Diagnostics Vital Signs (24Hr): Vital Signs - 24 hr 12/31/22 15:06 12/31/22 21:16 01/01/23 09:10 Temperature 98.0 F 98.2 F 96.9 F Pulse Rate 90 85 69 Respiratory Rate 18 18 16 Blood Pressure 101/61 110/66 90/58 L Pulse Oximetry 97 100 100 Oxygen Delivery Method Room Air Room Air Room Air BMI result Body Mass Index 22.0 Labs 12/28/22 18:17 12/30/22 08:59 Labs: Laboratory Results - last 48 hr 12/30/22 12/30/22 08:59 08:59 Sodium 136 Potassium 4.2 Chloride 103 Carbon Dioxide 26 Anion Gap 11 L BUN 8 L Creatinine 0.76 Estim Creat Clear Calc 108.6 Estimated GFR > 60 Fasting Glucose 126 H Calcium 9.6 Total Bilirubin 0.3 AST 22 ALT 13 Alkaline Phosphatase 46 Total Protein 7.2 Albumin 4.3 Triglycerides 49 Cholesterol 139 LDL Cholesterol, Calc 77 HDL Cholesterol 53 Vitamin B12 633 TSH 2.00 Medications Medications Current Medications Acetaminophen (Acetaminophen 325 Mg Tablet) 650 mg PO Q6H PRN PRN Reason: Headache/Pain Mild Scale (1-3) Last Admin: 01/01/23 08:59 Dose: 650 mg Al Hydroxide/Mg Hydroxide (Magnesium Hydrox/Alum Hydrox 30 Ml Oral.Susp) 30 ml PO Q6H PRN PRN Reason: Heartburn/Nausea Clonidine HCl (Clonidine Hcl 0.1 Mg Tablet) 0.1 mg PO TID [facility]; Protocol Last Admin: 01/01/23 09:02 Dose: Not Given Divalproex Sodium (Divalproex Sodium Er 500 Mg Tab.Er.24h) 1,500 mg PO BEDTIME [facility] Last Admin: 12/31/22 21:23 Dose: 1,500 mg Hydroxyzine HCl (Hydroxyzine Hcl 25 Mg Tablet) 25 mg PO Q6H PRN PRN Reason: Anxiety Last Admin: 01/01/23 06:19 Dose: 25 mg [place] Carbonate ([place] Carbonate Er 300 Mg Tablet.Er) 600 mg PO DAILY [facility] Last Admin: 01/01/23 09:02 Dose: Not Given Magnesium Hydroxide (Milk Of Magnesia 30 Ml Oral.Susp) 30 ml PO DAILY PRN PRN Reason: Constipation Nicotine Polacrilex (Nicotine Polacrilex 2 Mg Gum) 2 mg BUCCAL Q2H PRN PRN Reason: Nicotine Cravings Last Admin: 01/01/23 06:19 Dose: 2 mg Perphenazine (Perphenazine 8 Mg Tablet) 8 mg PO TID [facility] Last Admin: 01/01/23 08:59 Dose: 8 mg Trazodone HCl (Trazodone Hcl 100 Mg Tablet) 100 mg PO BEDTIME [place] Last Admin: 12/31/22 21:23 Dose: 100 mg Trazodone HCl (Trazodone Hcl 50 Mg Tablet) 50 mg PO BEDTIME PRN PRN Reason: Insomnia Last Admin: 12/31/22 21:22 Dose: 50 mg Allergies Allergies Allergy/AdvReac Type Severity Reaction Status Date / Time insect venom [MOSQUITO] Allergy Unknown UNKNOWN Verified 12/06/22 18:37 paliperidone [From INVEGA] Allergy Unknown DYSTONIC Verified 12/06/22 18:37 REACTION haloperidol [HALOPERIDOL] AdvReac Intermediate Dystonic Verified 12/06/22 18:37 reaction Assessment & Plan Assessment & Plan (1) Bipolar 1 disorder: Status: Acute Code(s): F31.9 - Bipolar disorder, unspecified (2) Chronic post-traumatic stress disorder (PTSD): Status: Acute Code(s): F43.12 - Post-traumatic stress disorder, chronic Plan Patient is a 22 year old female with hx of Bipolar D/O and PTSD, and was just discharged from on 12/15/2022 , who presented to [facility] via ambulance with c/o increased auditory hallucinations and anxiety d/t medication nonadherence. Plan: CV 5 minute safety checks Continue home medications Encourage medication adherence Referral to residential 12/31: Patient reports doing better than when I first came in . Patient signed 3 day yesterday but asked to retract 3 day, which she did; but then signed another 3 day one hour later. Pt stated, I signed the 3 day because I wanted control again . Pt reports she is willing to take half of her lithium dose but does not want 1,200mg because she believes depakote is enough . Denies SI/HI/VH/AH at this time. 01/01: Patient retracted 3 day notice. Patient reports she is hoping the bed at the residential will be ready soon . She is requesting to no longer take lithium but states she is willing to take anything else . Depakote labs to be drawn Wednesday night. Patient future oriented; discussed wanting to find a job. Sleeping well. DC lithium. Patient educated on: diagnosis, medication risk/benefits and therapeutic strategies Informed Consent: understands Reason for continued inpatient stay Substantial Risk for: med/psych decompensation Time Spent With Patient Time: Total time managing care of this patient today _30___ minutes.
[2023-01-01 14:30] VITALS: BP 96/51; PULSE 73; RESP 16
[2023-01-01] MEDS: QUEtiapine Fumarate 25 MG TABLET PO (17:08)
[2023-01-01 20:30] VITALS: BP 116/56; PULSE 71; RESP 16; TEMP 36.4; O2SAT 97
[2023-01-01] MEDS: cloNIDine HCL 0.1 MG TABLET PO (20:35)
[2023-01-01] MEDS: Divalproex Sodium ER 500 MG TAB.ER.24H 1500 MG PO (20:35)
[2023-01-01] MEDS: traZODone HCL 100 MG TABLET PO (21:24)
[2023-01-02 09:00] VITALS: BP 89/53; PULSE 80; TEMP 36.3; O2SAT 100
[2023-01-02] MEDS: Nicotine Polacrilex 2 MG GUM BUCCAL ×5 (09:16→22:14)
[2023-01-02] MEDS: QUEtiapine Fumarate 25 MG TABLET PO ×2 (09:17→22:03)
[2023-01-02] MEDS: Perphenazine 8 MG TABLET PO ×3 (09:17→21:39)
--- NOTE | 2023-01-02 10:47 | P.PNPSI_ITS ---
Subjective Subjective Date of Service: 01/02/23 Reason For Visit: todd Interim History: Reviewed with staff. Continues manic, hyperverbal and somewhat intrusive. Restless. Pressured regar ding her medications and why she wanted to be off Rosalia which she says is because she wanted to continue to smoke weed. Distractible. She is adherent to the medication changes already implemented.Patient retracted 3 day notice. Depakote labs to be drawn Wednesday. Patient future oriented; Social with peers and staff. Medication Compliance: Yes Side effects from medications: No Attending Groups: Yes Review of Systems Review of Systems CONSTITUTIONAL: Denies weight loss, fever and chills. HEENT: Denies changes in vision and hearing. RESPIRATORY: Denies SOB and cough. CV: + palpitations no CP. GI: Denies abdominal pain, nausea, vomiting and diarrhea. : Denies dysuria and urinary frequency. MSK: Denies myalgia and joint pain. SKIN: Denies rash and pruritus. NEUROLOGICAL: Denies headache and syncope. PSYCHIATRIC: See HPI All other ROS are negative unless in HPI Constitutional: Reports as per HPI Eyes: Reports as per HPI Reports as per HPI Cardiovascular: Reports as per HPI Respiratory: Reports as per HPI Gastrointestinal: Reports as per HPI Musculoskeletal: Reports as per HPI Skin/Breast: Reports as per HPI Reports as per HPI Psychiatric: Reports as per HPI Endocrine: Reports as per HPI Hematologic/Lymphatic: Reports as per HPI Allergic/Immunologic: Reports as per HPI Mental Status Exam Mental Status Exam Narrative: Pt is alert and oriented; behavior is cooperative, friendly and restless; dressed in casual attire; mood is described as better ; eye contact ap propriate; Speech is normal volume and prosody and slightly pressured; no psychomotor agitation/retardation present; thought process is organized and goal directed; Thought content is on tx; otherwise pertinent to relevant topics and without any delusional content, paranoid ideations or grandiosity; denies SI/HI. There is no evidence of perceptual disturbance. Patients insight and judgment are poor but improving. Diagnostics Vital Signs (24Hr): Vital Signs - 24 hr 01/01/23 14:30 01/01/23 20:30 01/02/23 09:00 Temperature 97.5 F 97.3 F Pulse Rate 73 71 80 Respiratory Rate 16 16 Blood Pressure 96/51 L 116/56 L 89/53 L Pulse Oximetry 97 100 Oxygen Delivery Method Room Air Room Air BMI result Body Mass Index 22.0 Labs 12/28/22 18:17 12/30/22 08:59 Medications Medications Current Medications Acetaminophen (Acetaminophen 325 Mg Tablet) 650 mg PO Q6H PRN PRN Reason: Headache/Pain Mild Scale (1-3) Last Admin: 01/01/23 08:59 Dose: 650 mg Al Hydroxide/Mg Hydroxide (Magnesium Hydrox/Alum Hydrox 30 Ml Oral.Susp) 30 ml PO Q6H PRN PRN Reason: Heartburn/Nausea Clonidine HCl (Clonidine Hcl 0.1 Mg Tablet) 0.1 mg PO TID [facility]; Protocol Last Admin: 01/02/23 09:18 Dose: Not Given Divalproex Sodium (Divalproex Sodium Er 500 Mg Tab.Er.24h) 1,500 mg PO BEDTIME [place] Last Admin: 01/01/23 20:35 Dose: 1,500 mg Hydroxyzine HCl (Hydroxyzine Hcl 25 Mg Tablet) 25 mg PO Q6H PRN PRN Reason: Anxiety Last Admin: 01/01/23 21:27 Dose: 25 mg Magnesium Hydroxide (Milk Of Magnesia 30 Ml Oral.Susp) 30 ml PO DAILY PRN PRN Reason: Constipation Nicotine Polacrilex (Nicotine Polacrilex 2 Mg Gum) 2 mg BUCCAL Q2H PRN PRN Reason: Nicotine Cravings Last Admin: 01/02/23 09:16 Dose: 2 mg Perphenazine (Perphenazine 8 Mg Tablet) 8 mg PO TID [facility] Last Admin: 01/02/23 09:17 Dose: 8 mg Quetiapine Fumarate (Quetiapine Fumarate 25 Mg Tablet) 25 mg PO Q4H PRN PRN Reason: Anxiety Last Admin: 01/02/23 09:17 Dose: 25 mg Trazodone HCl (Trazodone Hcl 100 Mg Tablet) 100 mg PO BEDTIME [facility] Last Admin: 01/01/23 21:24 Dose: 100 mg Trazodone HCl (Trazodone Hcl 50 Mg Tablet) 50 mg PO BEDTIME PRN PRN Reason: Insomnia Last Admin: 12/31/22 21:22 Dose: 50 mg Allergies Allergies Allergy/AdvReac Type Severity Reaction Status Date / Time insect venom [MOSQUITO] Allergy Unknown UNKNOWN Verified 12/06/22 18:37 paliperidone [From INVEGA] Allergy Unknown DYSTONIC Verified 12/06/22 18:37 REACTION haloperidol [HALOPERIDOL] AdvReac Intermediate Dystonic Verified 12/06/22 18:37 reaction Assessment & Plan Assessment & Plan (1) Bipolar 1 disorder: Status: Acute Code(s): F31.9 - Bipolar disorder, unspecified (2) Chronic post-traumatic stress disorder (PTSD): Status: Acute Code(s): F43.12 - Post-traumatic stress disorder, chronic Plan Patient is a 22 year old female with hx of Bipolar D/O and PTSD, and was just discharged from on 12/15/2022 , who presented to [facility] via ambulance with c/o increased auditory hallucinations and anxiety d/t medication nonadherence. Plan: CV 5 minute safety checks Continue home medications Encourage medication adherence Referral to assisted 12/31: Patient reports doing better than when I first came in . Patient signed 3 day yesterday but asked to retract 3 day, which she did; but then signed another 3 day one hour later. Pt stated, I signed the 3 day because I wanted control again . Pt reports she is willing to take half of her lithium dose but does not want 1,200mg because she believes depakote is enough . Denies SI/HI/ VH/AH at this time. 01/01: Patient retracted 3 day notice. Patient reports she is hoping the bed at the assisted will be ready soon . She is requesting to no longer take lithium but states she is willing to take anything else . Depakote labs to be drawn Wednesday night. Patient future oriented; discussed wanting to find a job. Sleeping well. DC lithium. 01/02: Continue current treatment plan. Reason for continued inpatient stay Substantial Risk for: inability to function and rapid decompensation Time Spent With Patient Time: Total time managing care of this patient today ____ minutes.
[2023-01-02] MEDS: cloNIDine HCL 0.1 MG TABLET PO ×2 (14:38→21:39)
[2023-01-02 18:00] VITALS: BP 94/62; PULSE 78; RESP 16; TEMP 36.7; O2SAT 98
[2023-01-02] MEDS: traZODone HCL 100 MG TABLET PO (21:39)
[2023-01-02] MEDS: Divalproex Sodium ER 500 MG TAB.ER.24H 1500 MG PO (21:39)
[2023-01-02] MEDS: hydrOXYzine HCL 25 MG TABLET PO (21:39)
--- NOTE | 2023-01-03 01:43 | PC.NURSE ---
Lauren awake at 0050. Patient vomited at her bedside. Patient stated I think I overdid it with the popcorn . Area was cleaned and disinfected and sheets changed. Patient was able to fall back to sleep at 0120.
[2023-01-03 08:42] VITALS: BP 139/79; PULSE 90; TEMP 36.2; O2SAT 98
[2023-01-03] MEDS: Perphenazine 8 MG TABLET PO ×3 (08:46→21:52)
[2023-01-03] MEDS: Nicotine Polacrilex 2 MG GUM BUCCAL ×4 (08:46→21:37)
--- NOTE | 2023-01-03 13:57 | HO.PSYCHPN ---
Subjective Subjective Date of Service: 01/03/23 Reason For Visit: todd Interim History: Reviewed with staff. Jarred reports she wants to go to a [facility] snf on Wednesday but would like to be DCd tomorrow to spend a day with her family before going. She had one episode of vomiting last night because she ate a lot of popcorn and then drank milk. She has no N/V today. No abd pain. Says Seroquel is helpful for her. Continues hyperverbal. Patient future oriented; Social with peers and staff. Review of Systems Review of Systems CONSTITUTIONAL: Denies weight loss, fever and chills. HEENT: Denies changes in vision and hearing. RESPIRATORY: Denies SOB and cough. CV: + palpitations no CP. GI: Denies abdominal pain, nausea, vomiting and diarrhea. : Denies dysuria and urinary frequency. MSK: Denies myalgia and joint pain. SKIN: Denies rash and pruritus. NEUROLOGICAL: Denies headache and syncope. PSYCHIATRIC: See HPI All other ROS are negative unless in HPI Constitutional: Reports as per HPI Eyes: Reports as per HPI Reports as per HPI Cardiovascular: Reports as per HPI Respiratory: Reports as per HPI Gastrointestinal: Reports as per HPI Musculoskeletal: Reports as per HPI Skin/Breast: Reports as per HPI Reports as per HPI Psychiatric: Reports as per HPI Endocrine: Reports as per HPI Hematologic/Lymphatic: Reports as per HPI Allergic/Immunologic: Reports as per HPI Mental Status Exam Mental Status Exam Narrative: Pt is alert and oriented; behavior is cooperative, friendly and restless; dressed in casual attire; mood is described as better ; eye contact appropriate; Speech is normal volume and prosody and slightly pressured; no psychomotor agitation/retardation present; thought process is organized and goal directed; Thought content is on tx; otherwise pertinent to relevant topics and without any delusional content, paranoid ideations or grandiosity; denies SI/HI. There is no evidence of perceptual disturbance. Patients insight and judgment are poor but improving. Diagnostics Vital Signs (24Hr): Vital Signs - 24 hr 01/02/23 18:00 01/03/23 08:42 Temperature 98.1 F 97.2 F Pulse Rate 78 90 Respiratory Rate 16 Blood Pressure 94/62 139/79 Pulse Oximetry 98 98 Oxygen Delivery Method Room Air Room Air BMI result Body Mass Index 22.0 Labs 12/28/22 18:17 12/30/22 08:59 Medications Medications Current Medications Acetaminophen (Acetaminophen 325 Mg Tablet) 650 mg PO Q6H PRN PRN Reason: Headache/Pain Mild Scale (1-3) Last Admin: 01/01/23 08:59 Dose: 650 mg Al Hydroxide/Mg Hydroxide (Magnesium Hydrox/Alum Hydrox 30 Ml Oral.Susp) 30 ml PO Q6H PRN PRN Reason: Heartburn/Nausea Clonidine HCl (Clonidine Hcl 0.1 Mg Tablet) 0.1 mg PO TID [facility]; Protocol Last Admin: 01/03/23 08:49 Dose: Not Given Divalproex Sodium (Divalproex Sodium Er 500 Mg Tab.Er.24h) 1,500 mg PO BEDTIME [facility] Last Admin: 01/02/23 21:39 Dose: 1,500 mg Hydroxyzine HCl (Hydroxyzine Hcl 25 Mg Tablet) 25 mg PO Q6H PRN PRN Reason: Anxiety Last Admin: 01/02/23 21:39 Dose: 25 mg Magnesium Hydroxide (Milk Of Magnesia 30 Ml Oral.Susp) 30 ml PO DAILY PRN PRN Reason: Constipation Nicotine Polacrilex (Nicotine Polacrilex 2 Mg Gum) 2 mg BUCCAL Q2H PRN PRN Reason: Nicotine Cravings Last Admin: 01/03/23 12:52 Dose: 2 mg Perphenazine (Perphenazine 8 Mg Tablet) 8 mg PO TID [facility] Last Admin: 01/03/23 08:46 Dose: 8 mg Quetiapine Fumarate (Quetiapine Fumarate 25 Mg Tablet) 25 mg PO Q4H PRN PRN Reason: Anxiety Last Admin: 01/02/23 22:03 Dose: 25 mg Trazodone HCl (Trazodone Hcl 100 Mg Tablet) 100 mg PO BEDTIME [facility] Last Admin: 01/02/23 21:39 Dose: 100 mg Trazodone HCl (Trazodone Hcl 50 Mg Tablet) 50 mg PO BEDTIME PRN PRN Reason: Insomnia Last Admin: 12/31/22 21:22 Dose: 50 mg Allergies Allergies Allergy/AdvReac Type Severity Reaction Status Date / Time insect venom [MOSQUITO] Allergy Unknown UNKNOWN Verified 12/06/22 18:37 paliperidone [From INVEGA] Allergy Unknown DYSTONIC Verified 12/06/22 18:37 REACTION haloperidol [HALOPERIDOL] AdvReac Intermediate Dystonic Verified 12/06/22 18:37 reaction Assessment & Plan Assessment & Plan (1) Bipolar 1 disorder: Status: Acute Code(s): F31.9 - Bipolar disorder, unspecified (2) Chronic post-traumatic stress disorder (PTSD): Status: Acute Code(s): F43.12 - Post-traumatic stress disorder, chronic Plan Patient is a 22 year old female with hx of Bipolar D/O and PTSD, and was just discharged from on 12/15/2022 , who presented to [facility] via ambulance with c/o increased auditory hallucinations and anxiety d/t medication nonadherence. Plan: CV 5 minute safety checks Continue home medications Encourage medication adherence Referral to snf 12/31: Patient reports doing better than when I first came in . Patient signed 3 day yesterday but asked to retract 3 day, which she did; but then signed another 3 day one hour later. Pt stated, I signed the 3 day because I wanted control again . Pt reports she is willing to take half of her lithium dose but does not want 1,200mg because she believes depakote is enough . Denies SI/HI/VH/AH at this time. 01/01: Patient retracted 3 day notice. Patient reports she is hoping the bed at the snf will be ready soon . She is requesting to no longer take lithium but states she is willing to take anything else . Depakote labs to be drawn Wednesday night. Patient future oriented; discussed wanting to find a job. Sleeping well. DC lithium. 01/02: Continue current treatment plan. 01/03: Continue current treatment. Check Depakote level in AM. Reason for continued inpatient stay Substantial Risk for: inability to function and rapid decompensation Time Spent With Patient Time: Total time managing care of this patient today ____ minutes.
--- NOTE | 2023-01-03 13:57 | HO.PSYCHPN ---
Subjective Subjective Reason For Visit: todd Diagnostics Vital Signs (24Hr): Vital Signs - 24 hr 01/02/23 18:00 01/03/23 08:42 Temperature 98.1 F 97.2 F Pulse Rate 78 90 Respiratory Rate 16 Blood Pressure 94/62 139/79 Pulse Oximetry 98 98 Oxygen Delivery Method Room Air Room Air BMI result Body Mass Index 22.0 Labs 12/28/22 18:17 12/30/22 08:59 Medications Medications Current Medications Acetaminophen (Acetaminophen 325 Mg Tablet) 650 mg PO Q6H PRN PRN Reason: Headache/Pain Mild Scale (1-3) Last Admin: 01/01/23 08:59 Dose: 650 mg Al Hydroxide/Mg Hydroxide (Magnesium Hydrox/Alum Hydrox 30 Ml Oral.Susp) 30 ml PO Q6H PRN PRN Reason: Heartburn/Nausea Clonidine HCl (Clonidine Hcl 0.1 Mg Tablet) 0.1 mg PO TID [facility]; Protocol Last Admin: 01/03/23 08:49 Dose: Not Given Divalproex Sodium (Divalproex Sodium Er 500 Mg Tab.Er.24h) 1,500 mg PO BEDTIME [facility] Last Admin: 01/02/23 21:39 Dose: 1,500 mg Hydroxyzine HCl (Hydroxyzine Hcl 25 Mg Tablet) 25 mg PO Q6H PRN PRN Reason: Anxiety Last Admin: 01/02/23 21:39 Dose: 25 mg Magnesium Hydroxide (Milk Of Magnesia 30 Ml Oral.Susp) 30 ml PO DAILY PRN PRN Reason: Constipation Nicotine Polacrilex (Nicotine Polacrilex 2 Mg Gum) 2 mg BUCCAL Q2H PRN PRN Reason: Nicotine Cravings Last Admin: 01/03/23 12:52 Dose: 2 mg Perphenazine (Perphenazine 8 Mg Tablet) 8 mg PO TID [facility] Last Admin: 01/03/23 08:46 Dose: 8 mg Quetiapine Fumarate (Quetiapine Fumarate 25 Mg Tablet) 25 mg PO Q4H PRN PRN Reason: Anxiety Last Admin: 01/02/23 22:03 Dose: 25 mg Trazodone HCl (Trazodone Hcl 100 Mg Tablet) 100 mg PO BEDTIME [facility] Last Admin: 01/02/23 21:39 Dose: 100 mg Trazodone HCl (Trazodone Hcl 50 Mg Tablet) 50 mg PO BEDTIME PRN PRN Reason: Insomnia Last Admin: 12/31/22 21:22 Dose: 50 mg Allergies Allergies Allergy/AdvReac Type Severity Reaction Status Date / Time insect venom [MOSQUITO] Allergy Unknown UNKNOWN Verified 12/06/22 18:37 paliperidone [From INVEGA] Allergy Unknown DYSTONIC Verified 12/06/22 18:37 REACTION haloperidol [HALOPERIDOL] AdvReac Intermediate Dystonic Verified 12/06/22 18:37 reaction Assessment & Plan Assessment & Plan (1) Bipolar 1 disorder: Status: Acute Code(s): F31.9 - Bipolar disorder, unspecified (2) Chronic post-traumatic stress disorder (PTSD): Status: Acute Code(s): F43.12 - Post-traumatic stress disorder, chronic Plan Patient is a 22 year old female with hx of Bipolar D/O and PTSD, and was just discharged from on 12/15/2022 , who presented to [facility] via ambulance with c/o increased auditory hallucinations and anxiety d/t medication nonadherence. Plan: CV 5 minute safety checks Continue home medications Encourage medication adherence Referral to [facility] 12/31: Patient reports doing better than when I first came in . Patient signed 3 day yesterday but asked to retract 3 day, which she did; but then signed another 3 day one hour later. Pt stated, I signed the 3 day because I wanted control again . Pt reports she is willing to take half of her lithium dose but does not want 1,200mg because she believes depakote is enough . Denies SI/HI/VH/AH at this time. 01/01: Patient retracted 3 day notice. Patient reports she is hoping the bed at the [facility] will be ready soon . She is requesting to no longer take lithium but states she is willing to take anything else . Depakote labs to be drawn Wednesday night. Patient future oriented; discussed wanting to find a job. Sleeping well. DC lithium. 01/02: Continue current treatment plan. Time Spent With Patient Time: Total time managing care of this patient today ____ minutes.
[2023-01-03] MEDS: QUEtiapine Fumarate 25 MG TABLET PO (14:00)
[2023-01-03 15:02] VITALS: BP 107/52; PULSE 80; O2SAT 99
[2023-01-03 18:00] VITALS: BP 106/54; PULSE 85; TEMP 36.2; O2SAT 96
[2023-01-03] MEDS: traZODone HCL 100 MG TABLET PO (21:52)
[2023-01-03] MEDS: Divalproex Sodium ER 500 MG TAB.ER.24H 1500 MG PO (21:52)
[2023-01-03] MEDS: cloNIDine HCL 0.1 MG TABLET PO (21:52)
[2023-01-03] MEDS: hydrOXYzine HCL 25 MG TABLET PO (21:53)
[2023-01-04] MEDS: Nicotine Polacrilex 2 MG GUM BUCCAL ×3 (06:02→13:31)
[2023-01-04 08:44] VITALS: BP 101/51; PULSE 62; RESP 18; TEMP 36.3; O2SAT 99
[2023-01-04] MEDS: cloNIDine HCL 0.1 MG TABLET PO (08:45)
[2023-01-04] MEDS: Perphenazine 8 MG TABLET PO (08:45)
[2023-01-04 08:59] LABS: Valproate 67.9 mcg/mL (50.0-100.0)
[2023-01-04 09:02] LABS: Alanine Aminotransferase 8 U/L (0-31); Albumin Level 3.9 g/dL (3.5-5.0); Alkaline Phosphatase 40 U/L (39-117); Aspartate Amino Transferase 17 U/L (5-31); Bilirubin Direct < 0.2 mg/dL (0.0-0.5); Bilirubin Total 0.2 mg/dL (0.0-1.0); Total Protein 6.5 g/dL (6.5-8.0)
[2023-01-04 09:46] LABS: Ammonia 28 umol/L (13-55)
[2023-01-04] MEDS: QUEtiapine Fumarate 25 MG TABLET PO (12:18)
--- NOTE | 2023-01-04 12:58 | P.DS_ITS ---
DS: Providers Provider Date of Service: 01/04/23 Date of admission: 12/29/22 16:12 Date of discharge: 01/04/23 Primary care physician: Moreno Physician Admitting clinician: Fabiana Plascencia Attending physician on admission: Maximo Nielsen Attending physician on discharge: Maximo Nielsen Discharging clinician: Fabiana Plascencia DS: Diagnosis Discharge Diagnosis (1) Bipolar 1 disorder: Status: Acute (2) Chronic post-traumatic stress disorder (PTSD): Status: Acute DS: Medications Discharge Medications Home Medications: Previous Rx's Medication Instructions Recorded clonidine HCl 0.1 mg tablet 0.1 mg PO TID 30 days #90 tabs 01/04/23 divalproex 500 mg tablet,extended 1,500 mg PO BEDTIME 30 days #90 01/04/23 release 24 hr tabs nicotine (polacrilex) 2 mg gum 2 mg PO Q2H PRN Nicotine Cravings 01/04/23 30 days #100 ea perphenazine 4 mg tablet 8 mg PO TID 30 days #180 tabs 01/04/23 quetiapine 25 mg tablet 25 mg PO Q6H PRN Anxiety 30 days 01/04/23 #120 tabs trazodone 100 mg tablet 100 mg PO BEDTIME 30 days #30 tabs 01/04/23 Mental Status Exam Mental Status Exam Narrative: Pt is alert and oriented; behavior is cooperative, friendly and calm; dressed in casual attire; mood is described as good ; eye contact appropriate; Speech is normal rate, volume and prosody and not pressured; no psychomotor agitation/retardation present; thought process is organized and goal directed; Thought content is on tx; otherwise pertinent to relevant topics and without any delusional content, paranoid ideations or grandiosity; denies SI/HI. There is no evidence of perceptual disturbance. Patients insight and judgment are fair. Data Data Completed and Pending Completed studies during hospitalization [Text1]: 12/28/22 12/28/22 12/28/22 16:36 16:36 16:36 WBC RBC Hgb Hct MCV MCH MCHC RDW Plt Count MPV Immature Gran % (Auto) Neut % (Auto) Lymph % (Auto) [place] % (Auto) Eos % (Auto) Baso % (Auto) Lymph # (Auto) [place] # (Auto) Eos # (Auto) Baso # (Auto) Abs Immat Gran (auto) Absolute Neuts (auto) Absolute Nucleated RBC Nucleated RBC % (auto) Sodium Potassium Chloride Carbon Dioxide Anion Gap BUN Creatinine Estim Creat Clear Calc Estimated GFR Random Glucose Fasting Glucose Estimat Average Glucose Hemoglobin A1c % Calcium Total Bilirubin Direct Bilirubin AST ALT Alkaline Phosphatase Ammonia Total Protein Albumin Triglycerides Cholesterol LDL Cholesterol, Calc HDL Cholesterol Vitamin B12 TSH Urine Color Yellow Urine Appearance Cloudy Urine pH 6.5 Ur Specific [place] 1.015 Urine Protein Trace Urine Glucose (UA) Negative Urine Ketones Negative Urine Blood Negative Urine Nitrite Negative Ur Leukocyte Esterase Small (1+) H Urine RBC 0-2 Urine WBC 6-10 H Ur Squamous Epith Cells 11-20 Urine Bacteria 2+ Hyaline Casts 6-10 Urine Test NEGATIVE Urine Opiates Screen Not Detected Urine Fentanyl Screen Not Detected Ur Barbiturates Screen Not Detected Valproic Acid Ur Phencyclidine Scrn Not Detected Ur Amphetamines Screen Not Detected U Benzodiazepines Scrn Not Detected [place] Urine Cocaine Screen Not Detected U Marijuana (THC) Screen POSITIVE H Ethyl Alcohol COVID-19 ([facility]EN[facility]) COVID-19 Clin Com 12/28/22 12/28/22 12/29/22 18:17 18:17 09:22 WBC 7.2 RBC 4.27 Hgb 13.3 Hct 39.9 MCV 93.4 MCH 31.1 MCHC 33.3 RDW 12.0 Plt Count 228 MPV 10.1 Immature Gran % (Auto) 0.8 H Neut % (Auto) 51.4 Lymph % (Auto) 41.0 H [place] % (Auto) 5.6 Eos % (Auto) 0.6 Baso % (Auto) 0.6 Lymph # (Auto) 2.9 [place] # (Auto) 0.4 Eos # (Auto) 0.0 Baso # (Auto) 0.0 Abs Immat Gran (auto) 0.06 H Absolute Neuts (auto) 3.7 Absolute Nucleated RBC 0.000 Nucleated RBC % (auto) 0.0 Sodium 141 Potassium 4.4 Chloride 108 Carbon Dioxide 28 Anion Gap 9 L BUN 5 L Creatinine 0.74 Estim Creat Clear Calc 111.6 Estimated GFR > 60 Random Glucose 121 H Fasting Glucose Estimat Average Glucose Hemoglobin A1c % Calcium 9.9 Total Bilirubin 0.3 Direct Bilirubin AST 21 ALT 14 Alkaline Phosphatase 43 Ammonia Total Protein 7.2 Albumin 4.2 Triglycerides Cholesterol LDL Cholesterol, Calc HDL Cholesterol Vitamin B12 TSH Urine Color Urine Appearance Urine pH Ur Specific [place] Urine Protein Urine Glucose (UA) Urine Ketones Urine Blood Urine Nitrite Ur Leukocyte Esterase Urine RBC Urine WBC Ur Squamous Epith Cells Urine Bacteria Hyaline Casts Urine Test Urine Opiates Screen Urine Fentanyl Screen Ur Barbiturates Screen Valproic Acid Ur Phencyclidine Scrn Ur Amphetamines Screen U Benzodiazepines Scrn [place] 0.11 L Urine Cocaine Screen U Marijuana (THC) Screen Ethyl Alcohol < 10 COVID-19 ([facility]ENNA) COVID-19 Clin Com 12/29/22 12/30/22 12/30/22 14:17 08:59 08:59 WBC RBC Hgb Hct MCV MCH MCHC RDW Plt Count MPV Immature Gran % (Auto) Neut % (Auto) Lymph % (Auto) [place] % (Auto) Eos % (Auto) Baso % (Auto) Lymph # (Auto) [place] # (Auto) Eos # (Auto) Baso # (Auto) Abs Immat Gran (auto) Absolute Neuts (auto) Absolute Nucleated RBC Nucleated RBC % (auto) Sodium 136 Potassium 4.2 Chloride 103 Carbon Dioxide 26 Anion Gap 11 L BUN 8 L Creatinine 0.76 Estim Creat Clear Calc 108.6 Estimated GFR > 60 Random Glucose Fasting Glucose 126 H Estimat Average Glucose 94 Hemoglobin A1c % 4.9 Calcium 9.6 Total Bilirubin 0.3 Direct Bilirubin AST 22 ALT 13 Alkaline Phosphatase 46 Ammonia Total Protein 7.2 Albumin 4.3 Triglycerides 49 Cholesterol 139 LDL Cholesterol, Calc 77 HDL Cholesterol 53 Vitamin B12 TSH 2.00 Urine Color Urine Appearance Urine pH Ur Specific [place] Urine Protein Urine Glucose (UA) Urine Ketones Urine Blood Urine Nitrite Ur Leukocyte Esterase Urine RBC Urine WBC Ur Squamous Epith Cells Urine Bacteria Hyaline Casts Urine Test Urine Opiates Screen Urine Fentanyl Screen Ur Barbiturates Screen Valproic Acid Ur Phencyclidine Scrn Ur Amphetamines Screen U Benzodiazepines Scrn [place] Urine Cocaine Screen U Marijuana (THC) Screen Ethyl Alcohol COVID-19 ([facility]ENNA) Negative COVID-19 Clin Com See Note 12/30/22 01/04/23 01/04/23 08:59 08:05 08:05 WBC RBC Hgb Hct MCV MCH MCHC RDW Plt Count MPV Immature Gran % (Auto) Neut % (Auto) Lymph % (Auto) [place] % (Auto) Eos % (Auto) Baso % (Auto) Lymph # (Auto) [place] # (Auto) Eos # (Auto) Baso # (Auto) Abs Immat Gran (auto) Absolute Neuts (auto) Absolute Nucleated RBC Nucleated RBC % (auto) Sodium Potassium Chloride Carbon Dioxide Anion Gap BUN Creatinine Estim Creat Clear Calc Estimated GFR Random Glucose Fasting Glucose Estimat Average Glucose Hemoglobin A1c % Calcium Total Bilirubin 0.2 Direct Bilirubin < 0.2 AST 17 ALT 8 Alkaline Phosphatase 40 Ammonia 28 Total Protein 6.5 Albumin 3.9 Triglycerides Cholesterol LDL Cholesterol, Calc HDL Cholesterol Vitamin B12 633 TSH Urine Color Urine Appearance Urine pH Ur Specific [place] Urine Protein Urine Glucose (UA) Urine Ketones Urine Blood Urine Nitrite Ur Leukocyte Esterase Urine RBC Urine WBC Ur Squamous Epith Cells Urine Bacteria Hyaline Casts Urine Test Urine Opiates Screen Urine Fentanyl Screen Ur Barbiturates Screen Valproic Acid Ur Phencyclidine Scrn Ur Amphetamines Screen U Benzodiazepines Scrn [place] Urine Cocaine Screen U Marijuana (THC) Screen Ethyl Alcohol COVID-19 ([facility]ENNA) COVID-19 [employer] Com 01/04/23 08:05 WBC RBC Hgb Hct MCV MCH MCHC RDW Plt Count MPV Immature Gran % (Auto) Neut % (Auto) Lymph % (Auto) [place] % (Auto) Eos % (Auto) Baso % (Auto) Lymph # (Auto) [place] # (Auto) Eos # (Auto) Baso # (Auto) Abs Immat Gran (auto) Absolute Neuts (auto) Absolute Nucleated RBC Nucleated RBC % (auto) Sodium Potassium Chloride Carbon Dioxide Anion Gap BUN Creatinine Estim Creat Clear Calc Estimated GFR Random Glucose Fasting Glucose Estimat Average Glucose Hemoglobin A1c % Calcium Total Bilirubin Direct Bilirubin AST ALT Alkaline Phosphatase Ammonia Total Protein Albumin Triglycerides Cholesterol LDL Cholesterol, Calc HDL Cholesterol Vitamin B12 TSH Urine Color Urine Appearance Urine pH Ur Specific [place] Urine Protein Urine Glucose (UA) Urine Ketones Urine Blood Urine Nitrite Ur Leukocyte Esterase Urine RBC Urine WBC Ur Squamous Epith Cells Urine Bacteria Hyaline Casts Urine Test Urine Opiates Screen Urine Fentanyl Screen Ur Barbiturates Screen Valproic Acid 67.9 Ur Phencyclidine Scrn Ur Amphetamines Screen U Benzodiazepines Scrn [place] Urine Cocaine Screen U Marijuana (THC) Screen Ethyl Alcohol COVID-19 ([facility]EN[facility]) COVID-19 Clin Com DS: Summary Hospital Course Hospital Course: Patient is a 22 year old female with hx of Bipolar D/O and PTSD, and was just discharged from on 12/15/2022 , who presented to [facility] ER via ambulance with c/o increased auditory hallucinations and anxiety d/t medication nonadherence. During admission assessment, patient presents calm and cooperative. Patient stated, I stopped taking my medications because I wanted to feel a sense of control. I don't want to take lithium but I will take everything else . Patient denies SI/HI. Patient reports having auditory hallucinations of voices telling me that I'm fat and ugly ; reports visual hallucinations of shadow people . Patient reports she does not want to be here and will take my medications while I'm here; I'm just waiting to get into a jail . Home medications were continued. Patient reports doing better than when I first came in . Patient signed 3 day yesterday but asked to retract 3 day, which she did; but then signed another 3 day one hour later. Pt stated, I signed the 3 day because I wanted control again . Pt reports she is willing to take half of her lithium dose but does not want 1,200mg because she believes depakote is enough . Denies SI/HI/VH/AH at this time. Patient retracted 3 day notice. Patient reports she is hoping the bed at the jail will be ready soon . She is requesting to no longer take lithium but states she is willing to take anything else . Patient future oriented; discussed wanting to find a job. Sleeping well. DC lithium. Pt was informed that bed at jail would be ready tomorrow. Patient is requesting to be discharged home to her mothers to be able to spend time with family; per healthcare social worker, mother would also like for patient to be home tonight. Patient reports she is feeling great ; pt stated, the medications are making me feel well. I'm going to keep taking them . Patient has a meeting with [facility] worker today. Pt denies SI/HI/VH/AH at this time. Time spent discussing smoking cessation with patient: 3 to 10 minutes Status at Discharge Cognitive/behavioral status at discharge: Patient was interviewed prior to discharge and found to be fully oriented and without any SI or HI. Patient has insight and demonstrates good judgment in terms of wanting to pursue treatment. Patient is not in imminent risk of harm to self or others and has a safety plan that includes presenting to the closest ER or calling 911 if feeling unsafe. Patient has been observed closely by nursing and unit staff throughout admission; patient has not engaged in any behaviors that suggest dangerousness to self or others and has demonstrated appropriate behaviors and impulse control. Functional status at discharge: independent ambulation Overall status at discharge: patient is back to baseline Time Spent with Patient Time attestation: Total time managing care of this patient today _30___ minutes. Time spent: Less than 30 minutes Discharge Plan Discharge Anticipated Discharge Date/Time: 01/04/23 15:00 Patient Disposition: Home, Self-Care Discharge Diagnosis: Bipolar D/O, PTSD Referrals: Physician,None [Primary Care Provider] - 1 Week Discharge Medications: New divalproex 500 mg Tablet Extended Release 24 Hr 1,500 mg PO BEDTIME 30 Days Qty: 90 0RF quetiapine 25 mg Tablet 25 mg PO Q6H PRN (Reason: Anxiety) 30 Days Qty: 120 0RF Continued clonidine HCl 0.1 mg tablet 0.1 mg PO TID 30 Days Qty: 90 0RF nicotine (polacrilex) 2 mg gum 2 mg PO Q2H PRN (Reason: Nicotine Cravings) 30 Days Qty: 100 0RF trazodone 100 mg tablet 100 mg PO BEDTIME 30 Days Qty: 30 0RF perphenazine 4 mg tablet 8 mg PO TID 30 Days Qty: 180 0RF Discontinued lithium carbonate 300 mg tablet extended release 1,200 mg PO BEDTIME divalproex 500 mg tablet extended release 24 hr 500 mg PO TID Discharge Orders: Discharge Order (Routine); Ordered 01/04/23 Ordered By: Fabiana Plascencia Diet: Regular diet Activity on Discharge: As tolerated Stand Alone Forms: Patient Portal Discharge page, Community Support Care Plan Goals: Maintain mood and safe behaviors Take medications as prescribed Practice coping skills Continue with outpatient providers and reach out to them as needed Health Concerns: Mood stability and behaviors Plan of Treatment: Follow up with your PCP, psychiatric provider and other outpatient providers regarding above concerns Take medications as prescribed Assessment: Patient was interviewed prior to discharge and found to be fully oriented and without any SI or HI. Patient has insight and demonstrates good judgment in terms of wanting to pursue treatment. Patient is not in imminent risk of harm to self or others and has a safety plan that includes presenting to the closest ER or calling 911 if feeling unsafe. Patient has been observed closely by nursing and unit staff throughout admission; patient has not engaged in any behaviors that suggest dangerousness to self or others and has demonstrated appropriate behaviors and impulse control.
== END 2023-01-04 14:55 | disposition home or self-care (01) | DRG 753 ==
LOC: HO.ED 12-29 09:46 → HO.PADLT16 12-29 16:17
PROVIDERS: Physician Assistant; Psychiatry & Neurology Psychiatry; Admitting Provider Social Worker; Emergency Provider Emergency Medicine; Responsible Provider Registered Nurse; Visit Provider Psychiatry & Neurology Psychiatry
DX: F31.9 Bipolar disorder, unspecified (principal); F17.210 Nicotine dependence, cigarettes, uncomplicated; F43.12 Post-traumatic stress disorder, chronic; Z71.6 Tobacco abuse counseling; Z20.822 Contact with and (suspected) exposure to COVID-19; Z79.899 Other long term (current) drug therapy
CPT/HCPCS: 36415; 80053; 80061; 80076; 80164; 80178; 80307; 81001; 81025; 82140; 82607; 83036; 84443; 85025; 87635; 93005; 99285; S9485

== ENCOUNTER → 2022-12-28 15:38 | Outpatient (BNV) | payer OTHER, SELFPAY | PROVIDERS: Emergency Provider Emergency Medicine; Visit Provider Social Worker | DX: F31.2 Bipolar disorder, current episode manic severe with psychotic features (principal); F43.12 Post-traumatic stress disorder, chronic | CPT/HCPCS: 99231; 99232; 99233 ==

== ENCOUNTER 2023-01-23 16:56 | Inpatient (IN) | payer OTHER, MEDICAID, SELFPAY ==
--- NOTE | ~2023-01-23 | XR_ITS ---
EXAMINATION: XR FOOT, RIGHT CLINICAL INFORMATION: Swelling. Trauma. COMPARISON: None available. TECHNIQUE: AP, lateral, and oblique views of the right foot. FINDINGS: The bones and soft tissues are normal. No fracture. Alignment is anatomic. Joint spaces are maintained. XR/XR foot RT min 3V IMPRESSION: Normal right foot.
[2023-01-23 17:05] VITALS: BP 101/64; PULSE 80; RESP 17; TEMP 35.9; O2SAT 97; BMI 21.5
--- NOTE | 2023-01-23 17:09 | ED_ITS ---
HPI - Psych General Chief Complaint: Psychiatric Symptoms Stated Complaint: crisis eval Time Seen by Provider: 01/23/23 17:39 Source: patient and RN notes reviewed Mode of arrival: ambulatory Limitations: no limitations History of Present Illness HPI Narrative: Patient is a 22-year-old female with history of bipolar, schizophrenia presenting to the emergency department with report of auditory hallucinations and paranoia. Patient denies thoughts of suicidal ideation but states that the voices are telling her to kill herself. She reports that she has been taking her medications daily but not in the doses prescribed. Patient reports that she is having intrusive thoughts about [place]. She denies any homicidal ideation. She denies any command hallucinations to harm others. Admits to using marijuana today. MD complaint: hallucinations Onset (ago): hour(s) Duration: intermittent History of same: Yes Relieving factors: none Exacerbating factors: none Context: not taking psychiatric medications (not taking as prescribed) Associated psychiatric symptoms: auditory hallucinations Associated symptoms: denies other symptoms Treatments prior to arrival: none Related Data Previous Rx's Medication Instructions Recorded clonidine HCl 0.1 mg tablet 0.1 mg PO TID 30 days #90 tabs 01/04/23 divalproex 500 mg tablet,extended 1,500 mg (3 x 500 mg) PO BEDTIME 01/04/23 release 24 hr 30 days #90 tabs nicotine (polacrilex) 2 mg gum 2 mg PO Q2H PRN Nicotine Cravings 01/04/23 30 days #100 ea perphenazine 4 mg tablet 8 mg (2 x 4 mg) PO TID 30 days 01/04/23 #180 tabs quetiapine 25 mg tablet 25 mg PO Q6H PRN Anxiety 30 days 01/04/23 #120 tabs trazodone 100 mg tablet 100 mg PO BEDTIME 30 days #30 tabs 01/04/23 Allergies Allergy/AdvReac Type Severity Reaction Status Date / Time insect venom [MOSQUITO] Allergy Unknown UNKNOWN Verified 12/06/22 18:37 paliperidone [From INVEGA] Allergy Unknown DYSTONIC Verified 12/06/22 18:37 REACTION haloperidol [HALOPERIDOL] AdvReac Intermediate Dystonic Verified 12/06/22 18:37 reaction Review of Systems 2 Review of Systems: As per HPI. Yes all other systems are reviewed and are negative PMFSH Past Medical History Medical History Anxiety Bipolar 1 disorder Bipolar disorder Depression Social History Social History Household Members: Family Household Members Other:: Resides at [facility] currently Housing: House Do you presently have visiting nurse or other home services: No Alcohol intake: never Patient Tobacco Use Status: Current everyday Tobacco user Tobacco use type: Cigarette Cigarette Packs Per Day: 2 Cigarettes Per Day: 40.0 Years Smoked: 2 years e-Cigarette/Vaping Use: Currently Using Second Hand Smoke Exposure: Yes Substance Use Type: Marijuana Advance Directives: No Advance Directives Information Provided: No Guardian: No service: No Sexual orientation: Bisexual Physical Exam 2 Vital Signs: Vital Signs: Last Vital Signs Temp 96.7 F L 01/23/23 17:05 Pulse 93 01/24/23 05:56 Resp 18 01/24/23 05:56 BP 125/77 01/24/23 05:56 Pulse Ox 98 01/24/23 05:56 O2 Del Method Room Air 01/24/23 05:56 BMI result Body Mass Index 21.5 Psych: Appearance: grossly normal Speech and movement: Pressured speech present Affect: Ecstatic affect present Attitude: cooperative Thought process: Tangential thought process present Thought content: Paranoid delusions present and Hallucination(s) present auditory Insight: Limited insight present (Psych) Judgement: Limited judgement present (Psych) Course Course Course Narrative: This is an RME: Additional HPI, ROS, PE not included below will be deferred to primary provider. This is a [id number], with a hx of BPD, schizophrenia presents with paranoia, presenting to the emergency department because I am fucked because my brain cannot handle all this information from the internet . She states that she is hearing things from the devil and that people are following her. Admits to marijuana and nicotine. Denies etoh use today. Shes reporting that she isn't taking her medications right. She denies HI/SI. Plan: psychiatric pod Reevaluation(s) Reevaluation #1: Continue physician observation, patient presents with todd, no events overnight, patient has been evaluated by the crisis team and is a Section 12 inpatient bed search. Time: 07:13 Medical Decision Making Medical Decision Making MDM Narrative: Patient is a 22-year-old female with history of bipolar, schizophrenia presenting to the emergency department with report of auditory hallucinations and paranoia. On exam patient is awake, A+Ox3, VS WNL, afebrile, normal neurological exam without focal deficits, stating that she is sick of hearing the government conspiracies, admits to noncompliance with prescribed medications, laughing inappropriately during exam, generally coooperative. Given reported symptoms and physical exam findings, initial differential includes schizophrenia, bipolar, paranoia, depression, anxiety, drug induced psychosis. Plan for CARE team evaluation upon medical clearance. 19:46 Labs within normal limits, negative Covid, urine drug screen positive only for THC which patient admitted to using. Will medical clear patient at this time for care team evaluation. Per CARE team patient will be inpatient bed search. Differential Diagnosis Differential Diagnoses: The differential diagnosis associated with the presentation includes As per MDM. Lab Data [facility] Lab Attestation statement: I reviewed the patient's lab results. As per MDM. 01/23/23 18:17 01/23/23 18:17 Labs: Lab Results 01/23/23 01/23/23 Range/Units 18:17 19:20 WBC 7.6 (4.8-10.8) X10*3/uL RBC 4.06 L (4.20-5.50) X10*6/uL Hgb 12.6 (12.0-16.0) g/dl Hct 36.6 L (37.0-47.0) % MCV 90.1 (80.0-98.0) fL MCH 31.0 (27.0-33.0) pg MCHC 34.4 (31.0-35.0) g/dl RDW 11.9 (11.0-16.0) % Plt Count 232 (160-400) X10*3/uL MPV 9.6 (9.4-12.3) fL Immature Gran % (Auto) 0.3 (0.0-0.4) % Neut % (Auto) 60.7 (45-73) % Lymph % (Auto) 34.0 (20-40) % [place] % (Auto) 4.3 (2-11) % Eos % (Auto) 0.4 (0-4) % Baso % (Auto) 0.3 (0-2) % Lymph # (Auto) 2.6 (1.2-4.9) X10*3/uL [place] # (Auto) 0.3 (0.1-1.2) X10*3/uL Eos # (Auto) 0.0 (0.0-0.4) X10*3/uL Baso # (Auto) 0.0 (0.0-0.2) X10*3/uL Abs Immat Gran (auto) 0.02 (0.00-0.03) X10*3/uL Absolute Neuts (auto) 4.6 (2.0-8.3) x10*3/uL Absolute Nucleated RBC 0.000 (0.0-0.012) X10*3/uL Nucleated RBC % (auto) 0.0 (0.0-0.2) /100WBC Sodium 140 (135-145) mmol/L Potassium 4.0 (3.3-5.1) mmol/L Chloride 106 (96-108) mmol/L Carbon Dioxide 28 (22-29) mmol/L Anion Gap 10 L (12-20) BUN 6 L (9-16) mg/dL Creatinine 0.72 (0.5-1.4) mg/dL Estim Creat Clear Calc 110.2 Estimated GFR > 60 Random Glucose 133 H (60-115) mg/dL Calcium 10.3 H D (8.4-10.2) mg/dL Total Bilirubin 0.3 (0.0-1.0) mg/dL Direct Bilirubin 0.1 (0.0-0.5) mg/dL AST 14 (5-31) U/L ALT 6 (0-31) U/L Alkaline Phosphatase 44 (39-117) U/L Total Protein 6.9 (6.5-8.0) g/dL Albumin 4.1 (3.5-5.0) g/dL Urine Color Yellow Urine Appearance Clear Urine pH 6.5 (5.0-9.0) Ur Specific [place] 1.010 (1.005-1.025) Urine Protein Negative (Neg-Trace) mg/dL Urine Glucose (UA) Negative (Negative) mg/dL Urine Ketones Negative (Negative) mg/dL Urine Blood Negative (Negative) Urine Nitrite Negative (Negative) Ur Leukocyte Esterase Small (1+) H (Negative) Urine RBC 0-2 (0-2) /HPF Urine WBC 11-20 H (0-5) /HPF Ur Squamous Epith Cells 11-20 (0-2) /HPF Urine Bacteria 1+ (None Seen) Hyaline Casts 0-2 (0-2) /LPF Urine Test NEGATIVE (NEGATIVE) Urine Opiates Screen Not Detected (Not Detect) Urine Fentanyl Screen Not Detected (Not Detect) Ur Barbiturates Screen Not Detected (Not Detect) Ur Phencyclidine Scrn Not Detected (Not Detect) Ur Amphetamines Screen Not Detected (Not Detect) U Benzodiazepines Scrn Not Detected (Not Detect) Urine Cocaine Screen Not Detected (Not Detect) U Marijuana (THC) Screen POSITIVE H (Not Detect) Ethyl Alcohol < 10 mg/dL External Record Review External record reviewed: Inpatient record, Office record and Outpatient record Discharge Plan Discharge Clinical Impression: Paranoia Patient Disposition: Still a Patient Prescriptions: No Action divalproex 500 mg Tablet Extended Release 24 Hr 1,500 mg PO BEDTIME 30 Days Qty: 90 0RF quetiapine 25 mg Tablet 25 mg PO Q6H PRN (Reason: Anxiety) 30 Days Qty: 120 0RF clonidine HCl 0.1 mg tablet 0.1 mg PO TID 30 Days Qty: 90 0RF nicotine (polacrilex) 2 mg gum 2 mg PO Q2H PRN (Reason: Nicotine Cravings) 30 Days Qty: 100 0RF trazodone 100 mg tablet 100 mg PO BEDTIME 30 Days Qty: 30 0RF perphenazine 4 mg tablet 8 mg PO TID 30 Days Qty: 180 0RF Interventions: [place]-Suicide Risk Severity Scale Last Done: 01/24/23 00:21
--- NOTE | 2023-01-23 17:52 | PC.NURSE ---
pt is alert and oriented to person place time and situation. Pt states is not happy with myself , denies suicidality. states tomorrow is my birthday and I'd like to be out of here . provided with warm blanket, apprised of plan for evaluation.
[2023-01-23 18:21] LABS: MANUAL DIFF FLAG NO
[2023-01-23 18:24] LABS: Basophils Percent Auto 0.3 % (0-2); Eosinophils Percent Auto 0.4 % (0-4); Hematocrit 36.6 % (37.0-47.0); Hemoglobin 12.6 g/dl (12.0-16.0); Imm Gran Abs Auto 0.02 X10*3/uL (0.00-0.03); Imm Gran Pct Auto 0.3 % (0.0-0.4); Lymphocytes Absolute Auto 2.6 X10*3/uL (1.2-4.9); Mean Corpuscular HGB Conc 34.4 g/dl (31.0-35.0); Mean Corpuscular Volume 90.1 fL (80.0-98.0); Mean Platelet Volume 9.6 fL (9.4-12.3); Monocytes Absolute Auto 0.3 X10*3/uL (0.1-1.2); Monocytes Percent Auto 4.3 % (2-11); Neutrophils Absolute Auto 4.6 x10*3/uL (2.0-8.3); Neutrophils Percent Auto 60.7 % (45-73); Platelet Count 232 X10*3/uL (160-400); Red Blood Count 4.06 X10*6/uL (4.20-5.50); Red Cell Distribution Width 11.9 % (11.0-16.0); White Blood Count 7.6 X10*3/uL (4.8-10.8)
[2023-01-23 18:38] LABS: Alanine Aminotransferase 6 U/L (0-31); Albumin Level 4.1 g/dL (3.5-5.0); Alkaline Phosphatase 44 U/L (39-117); Anion Gap 10 (12-20); Aspartate Amino Transferase 14 U/L (5-31); Bilirubin Direct 0.1 mg/dL (0.0-0.5); Bilirubin Total 0.3 mg/dL (0.0-1.0); Blood Urea Nitrogen 6 mg/dL (9-16); Calcium 10.3 mg/dL (8.4-10.2); Carbon Dioxide 28 mmol/L (22-29); Chloride 106 mmol/L (96-108); Creatinine Clr Calc Pharmacy 110.2; Estimated Glomerular Filt Rate > 60; Ethanol < 10 mg/dL; Glucose Random 133 mg/dL (60-115); Sodium 140 mmol/L (135-145); Total Protein 6.9 g/dL (6.5-8.0)
[2023-01-23 19:28] LABS: Appearance Urine Clear; Color Urine Yellow; Glucose Urine UA Negative (Negative); Leukocyte Esterase Urine Small (1+) (Negative); Nitrite Urine Negative (Negative); PH 6.5 (5.0-9.0); UMIC TRIGGER UACC YES; Urine Blood Negative (Negative); Urine Ketones Negative (Negative); Urine Protein Negative (Neg-Trace)
[2023-01-23 19:30] LABS: UPreg QC Valid YES; Urine Pregnancy NEGATIVE (NEGATIVE)
[2023-01-23 19:33] LABS: Bacteria Urine 1+ (None Seen); Hyaline Casts Urine 0-2 /LPF (0-2); RBC Urine 0-2 /HPF (0-2); UACC Culture Trigger YES
[2023-01-23 19:38] LABS: Amphetamine Screen Urine Not Detected (Not Detect); Barbiturates, Urine Not Detected (Not Detect); Benzodiazepines Screen Urine Not Detected (Not Detect); Cannabinoid Screen Urine POSITIVE (Not Detect); Cocaine Screen Urine Not Detected (Not Detect); Fentanyl, urine Not Detected (Not Detect); Opiate Screen Urine Not Detected (Not Detect); Phencyclidine Screen Urine Not Detected (Not Detect)
[2023-01-24 05:56] VITALS: BP 125/77; PULSE 93; RESP 18; O2SAT 98
--- NOTE | 2023-01-24 07:02 | PC.NURSE ---
Patient slept through the night, no distress observed/reported, med rec completed/pending provider's approval, disposition per care team is section 12 inpatient bed search, behavior non concerning, labs completed/resulted, VSS, will continue to monitor.
--- NOTE | 2023-01-24 09:16 | ECG_ITS ---
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 Rate : 091 BPM Atrial Rate : 091 BPM P-R Int : 162 ms QRS Dur : 076 ms QT Int : 368 ms P-R-T Axes : 073 079 078 degrees QTc Int : 452 ms Normal sinus rhythm Normal ECG When compared with ECG of 28-DEC-2022 16:39, No significant change was found Referred By: Angelica Calderon Electronically Signed By:DAMIEN RAMIREZ
[2023-01-24] MEDS: Perphenazine 8 MG TABLET PO ×3 (09:23→22:43)
[2023-01-24] MEDS: Acetaminophen 325 MG TABLET 650 MG PO (10:00)
[2023-01-24] MEDS: Nicotine Polacrilex 2 MG GUM BUCCAL ×3 (10:46→16:50)
--- NOTE | 2023-01-24 11:08 | PC.NURSE ---
Lauren was OOB this morning and was adherent with taking her perphenazine. Lauren refused her AM clonidine and stated she is no longer taking Quetiapine because she hears the devil when I take it . Lauren appears pressured when speaking and had an episode where she loudly verbalized people here like to touch little kids Lauren was redirected as she began yelling she wants to get out of here. Lauren was able to get herself to calm down. Lauren is currently an inpatient bed search.
[2023-01-24 14:36] LABS: COVID-19 Test Negative (Negative); IDNOW Serial# 08D9AD1C
[2023-01-24] MEDS: QUEtiapine Fumarate 25 MG TABLET PO (18:14)
[2023-01-24 18:23] VITALS: BP 97/57; PULSE 105; RESP 16; O2SAT 99
--- NOTE | 2023-01-24 18:25 | PC.NURSE ---
Quetiapine 25mg given for anxiety.
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
[2023-01-24] MEDS: diphenhydrAMINE HCL 50 MG/ML VIAL IM (19:41)
[2023-01-24] MEDS: OLANZapine 10 MG VIAL IM (19:41)
[2023-01-24] MEDS: LORazepam 2 MG/ML VIAL IM (19:42)
[2023-01-24 20:00] VITALS: BP 110/56; PULSE 84; RESP 16; TEMP 36.7; O2SAT 99
--- NOTE | 2023-01-24 20:04 | PC.NURSE ---
Assisted with previous RN for care of pt and transfer to M3. Restraint forms completed. Pt safely transfered to restraint chair for transport and taken to unit.
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
[2023-01-24 21:47] VITALS: BMI 21.0
[2023-01-24 22:10] VITALS: BP 112/58; PULSE 50
[2023-01-24] MEDS: Divalproex Sodium ER 500 MG TAB.ER.24H 1500 MG PO (22:42)
[2023-01-24] MEDS: traZODone HCL 100 MG TABLET PO (22:44)
--- NOTE | 2023-01-25 00:14 | PC.NURSE ---
submitted 3 day notice on 01/24/23
--- NOTE | 2023-01-25 06:30 | PC.NURSE ---
r foot pain-foot appears swollen. patient verbalizing pain. ''I don't know why it hurts so much'' declined tylenol.
[2023-01-25 08:30] VITALS: BP 108/68; PULSE 105; TEMP 37.2; O2SAT 96
[2023-01-25] MEDS: Acetaminophen 325 MG TABLET 650 MG PO (08:34)
[2023-01-25] MEDS: Perphenazine 8 MG TABLET PO (08:35)
[2023-01-25] MEDS: cloNIDine HCL 0.1 MG TABLET PO ×2 (08:35→23:21)
[2023-01-25] MEDS: hydrOXYzine HCL 25 MG TABLET PO ×2 (08:35→15:43)
[2023-01-25 09:19] LABS: Estimated Average Glucose 94 mg/dL; Hemoglobin A1c % 4.9 % (<6.0)
[2023-01-25 09:30] LABS: Alanine Aminotransferase 8 U/L (0-31); Albumin Level 4.7 g/dL (3.5-5.0); Alkaline Phosphatase 50 U/L (39-117); Anion Gap 13 (12-20); Aspartate Amino Transferase 24 U/L (5-31); Bilirubin Total 0.4 mg/dL (0.0-1.0); Blood Urea Nitrogen 5 mg/dL (9-16); Carbon Dioxide 24 mmol/L (22-29); Chloride 106 mmol/L (96-108); Cholesterol 168 mg/dL (<200); Creatinine Clr Calc Pharmacy 98.3; Estimated Glomerular Filt Rate > 60; Glucose Fasting 119 mg/dL (60-99); HDL Cholesterol 60 mg/dL (>40); LDL Cholesterol Calculated 96 mg/dL (<100); Potassium 4.2 mmol/L (3.3-5.1); Sodium 139 mmol/L (135-145); Total Protein 7.9 g/dL (6.5-8.0); Triglycerides 61 mg/dL (<150)
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
[2023-01-25] MEDS: Perphenazine 4 MG TABLET 10 MG PO ×2 (14:13→23:21)
--- NOTE | 2023-01-25 15:37 | MHC.CLN ---
NUTRITION CONSULT FOR 12# WEIGHT GAIN. VISITED WITH PATIENT ON UNIT. REVIEW OF WEIGHT HX SHOWS VARYING WEIGHTS X ONE YEAR. PATIENT STATED THAT SHE HAS IDEAS ABOUT FOOD SUGGESTING DISORDERED EATING. WOULD LIKE TO GAIN WEIGHT. ADDING ENSURE MAX TID PER DISCUSSION. PROVIDES 450 KCALS, 90 G PROTEIN.
[2023-01-25] MEDS: QUEtiapine Fumarate 25 MG TABLET PO (15:43)
[2023-01-25] MEDS: Nicotine Polacrilex 2 MG GUM BUCCAL ×2 (18:19→23:17)
[2023-01-25 23:15] VITALS: BP 107/61; PULSE 100; RESP 16; TEMP 36.3; O2SAT 99
[2023-01-25] MEDS: QUEtiapine Fumarate 100 MG TABLET PO (23:21)
[2023-01-25] MEDS: Divalproex Sodium ER 500 MG TAB.ER.24H 1500 MG PO (23:21)
[2023-01-26] MEDS: Nicotine Polacrilex 2 MG GUM BUCCAL ×7 (06:29→21:38)
[2023-01-26 08:08] VITALS: BP 125/59; PULSE 106; RESP 18; TEMP 36.2; O2SAT 98
[2023-01-26] MEDS: hydrOXYzine HCL 25 MG TABLET PO ×2 (08:26→19:19)
[2023-01-26] MEDS: QUEtiapine Fumarate 25 MG TABLET PO ×3 (08:27→19:19)
[2023-01-26] MEDS: cloNIDine HCL 0.1 MG TABLET PO ×2 (08:27→20:50)
[2023-01-26] MEDS: Perphenazine 4 MG TABLET 10 MG PO ×3 (08:28→20:50)
[2023-01-26] MEDS: Acetaminophen 325 MG TABLET 650 MG PO (11:50)
[2023-01-26] MEDS: LORazepam 1 MG TABLET PO ×2 (13:40→21:38)
--- NOTE | 2023-01-26 15:58 | HO.PSYCHPN ---
Subjective Subjective Date of Service: 01/26/23 Reason For Visit: Paige Interim History: calm cooperative. more hyperverbal than yesterday. reasonable and rational, however, planning for discharge. per staff, irritable, labile, tearful, poor insight. appeared to have slept overnight. Mental Status Exam Mental Status Exam Narrative: Appearance: wearing street clothes, fair hygiene, in NAD Behavior: calm, cooperative Psychomotor: no PMA/PMR Speech: clear, hyperverbal, spontaneous TP: more linear TC: no paranoia or delusions noted. Mood: OK Affect: constricted, normo-intense, non-labile SI: none expressed HI: none expressed VH/AH: none expressed Insight/judgment: impaired x 2. Memory/cog: alert, oriented x 3 Diagnostics Vital Signs (24Hr): Vital Signs - 24 hr 01/25/23 23:15 01/26/23 08:08 Temperature 97.3 F 97.2 F Pulse Rate 100 106 H Respiratory Rate 16 18 Blood Pressure 107/61 125/59 L Pulse Oximetry 99 98 Oxygen Delivery Method Room Air Room Air BMI result Body Mass Index 21.0 Labs 01/23/23 18:17 01/25/23 08:55 Labs: Laboratory Results - last 48 hr 01/25/23 08:55 Sodium 139 Potassium 4.2 Chloride 106 Carbon Dioxide 24 Anion Gap 13 BUN 5 L Creatinine 0.80 Estim Creat Clear Calc 98.3 Estimated GFR > 60 Fasting Glucose 119 H Estimat Average Glucose 94 Hemoglobin A1c % 4.9 Calcium 10.0 Total Bilirubin 0.4 AST 24 ALT 8 Alkaline Phosphatase 50 Total Protein 7.9 Albumin 4.7 Triglycerides 61 Cholesterol 168 LDL Cholesterol, Calc 96 HDL Cholesterol 60 Imaging Radiology Impressions: ITS Impressions Foot X-Ray 01/25/23 09:52 IMPRESSION: Normal right foot. Medications Medications Current Medications Acetaminophen (Acetaminophen 325 Mg Tablet) 650 mg PO Q6H PRN PRN Reason: Headache/Pain Mild Scale (1-3) Last Admin: 01/26/23 11:50 Dose: 650 mg Al Hydroxide/Mg Hydroxide (Magnesium Hydrox/Alum Hydrox 30 Ml Oral.Susp) 30 ml PO Q6H PRN PRN Reason: Heartburn/Nausea Clonidine HCl (Clonidine Hcl 0.1 Mg Tablet) 0.1 mg PO TID [place]; Protocol Last Admin: 01/26/23 08:27 Dose: 0.1 mg Divalproex Sodium (Divalproex Sodium Er 500 Mg Tab.Er.24h) 1,500 mg PO BEDTIME [facility] Last Admin: 01/25/23 23:21 Dose: 1,500 mg Hydroxyzine HCl (Hydroxyzine Hcl 25 Mg Tablet) 25 mg PO Q6H PRN PRN Reason: Anxiety Last Admin: 01/26/23 08:26 Dose: 25 mg Lorazepam (Lorazepam 1 Mg Tablet) 1 mg PO Q6H PRN PRN Reason: severe anxiety Last Admin: 01/26/23 13:40 Dose: 1 mg Magnesium Hydroxide (Milk Of Magnesia 30 Ml Oral.Susp) 30 ml PO DAILY PRN PRN Reason: Constipation Nicotine Polacrilex (Nicotine Polacrilex 2 Mg Gum) 2 mg BUCCAL Q2H PRN PRN Reason: Nicotine Cravings Last Admin: 01/26/23 13:18 Dose: 2 mg Perphenazine (Perphenazine 4 Mg Tablet) 10 mg PO TID [facility] Last Admin: 01/26/23 08:28 Dose: 10 mg Quetiapine Fumarate (Quetiapine Fumarate 25 Mg Tablet) 25 mg PO Q6H PRN PRN Reason: Anxiety Last Admin: 01/26/23 08:27 Dose: 25 mg Quetiapine Fumarate (Quetiapine Fumarate 100 Mg Tablet) 100 mg PO BEDTIME [facility] Last Admin: 01/25/23 23:21 Dose: 100 mg Quetiapine Fumarate (Quetiapine Fumarate 100 Mg Tablet) 100 mg PO BEDTIME PRN PRN Reason: insomnia Allergies Allergies Allergy/AdvReac Type Severity Reaction Status Date / Time insect venom [MOSQUITO] Allergy Unknown UNKNOWN Verified 12/06/22 18:37 paliperidone [From INVEGA] Allergy Unknown DYSTONIC Verified 12/06/22 18:37 REACTION haloperidol [HALOPERIDOL] AdvReac Intermediate Dystonic Verified 12/06/22 18:37 reaction Assessment & Plan Assessment & Plan (1) Bipolar 1 disorder: Status: Acute Code(s): F31.9 - Bipolar disorder, unspecified Plan 01/25: restart home meds with the following exceptions: increase perphenazine to 10 mg TID; schedule seroquel 100 at HS, MR x 1. foot xray. 01/26: foot xray without Fx. continue current mgmt. check labs . planning for DC at expiry of 3-day notice. Reason for continued inpatient stay Substantial Risk for: inability to function and rapid decompensation Time Spent With Patient Time: Total time managing care of this patient today __25__ minutes.
[2023-01-26] MEDS: Divalproex Sodium ER 500 MG TAB.ER.24H 1500 MG PO (20:49)
[2023-01-26] MEDS: QUEtiapine Fumarate 100 MG TABLET PO (20:49)
[2023-01-26 22:16] VITALS: BP 133/63; PULSE 102; RESP 16; TEMP 36.5; O2SAT 99
[2023-01-27 09:30] VITALS: BP 111/54; PULSE 71; RESP 14; TEMP 36.7; O2SAT 100
[2023-01-27] MEDS: cloNIDine HCL 0.1 MG TABLET PO ×2 (09:32→21:44)
[2023-01-27] MEDS: Perphenazine 4 MG TABLET 10 MG PO ×3 (09:33→21:42)
[2023-01-27] MEDS: Nicotine Polacrilex 2 MG GUM BUCCAL ×4 (09:38→20:48)
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
[2023-01-27] MEDS: LORazepam 1 MG TABLET PO (12:51)
[2023-01-27 20:35] LABS: MANUAL DIFF FLAG NO
[2023-01-27 20:38] LABS: Basophils Percent Auto 0.6 % (0-2); Eosinophils Absolute Auto 0.1 X10*3/uL (0.0-0.4); Eosinophils Percent Auto 1.3 % (0-4); Hematocrit 43.2 % (37.0-47.0); Hemoglobin 14.4 g/dl (12.0-16.0); Imm Gran Abs Auto 0.02 X10*3/uL (0.00-0.03); Imm Gran Pct Auto 0.3 % (0.0-0.4); Lymphocytes Absolute Auto 3.6 X10*3/uL (1.2-4.9); Lymphocytes Percent Auto 50.8 % (20-40); Mean Corpuscular HGB Conc 33.3 g/dl (31.0-35.0); Mean Corpuscular Hemoglobin 30.5 pg (27.0-33.0); Mean Corpuscular Volume 91.5 fL (80.0-98.0); Mean Platelet Volume 10.3 fL (9.4-12.3); Monocytes Absolute Auto 0.2 X10*3/uL (0.1-1.2); Monocytes Percent Auto 3.4 % (2-11); Neutrophils Absolute Auto 3.1 x10*3/uL (2.0-8.3); Neutrophils Percent Auto 43.6 % (45-73); Platelet Count 241 X10*3/uL (160-400); Red Blood Count 4.72 X10*6/uL (4.20-5.50); Red Cell Distribution Width 11.7 % (11.0-16.0); White Blood Count 7.2 X10*3/uL (4.8-10.8)
[2023-01-27 20:52] LABS: Valproate 94.1 mcg/mL (50.0-100.0)
[2023-01-27 20:55] LABS: Alanine Aminotransferase 9 U/L (0-31); Albumin Level 4.6 g/dL (3.5-5.0); Alkaline Phosphatase 47 U/L (39-117); Aspartate Amino Transferase 18 U/L (5-31); Bilirubin Direct 0.2 mg/dL (0.0-0.5); Bilirubin Total 0.4 mg/dL (0.0-1.0); Total Protein 7.7 g/dL (6.5-8.0)
[2023-01-27 21:34] VITALS: BP 96/52; PULSE 94; RESP 16; TEMP 36.2
[2023-01-27 21:40] VITALS: BP 118/62; PULSE 107; O2SAT 99
[2023-01-27] MEDS: QUEtiapine Fumarate 100 MG TABLET PO (21:43)
[2023-01-27] MEDS: Divalproex Sodium ER 500 MG TAB.ER.24H 1500 MG PO (21:44)
[2023-01-28] MEDS: QUEtiapine Fumarate 25 MG TABLET PO (04:35)
[2023-01-28] MEDS: cloNIDine HCL 0.1 MG TABLET PO (08:13)
[2023-01-28] MEDS: Perphenazine 4 MG TABLET 10 MG PO (08:13)
[2023-01-28 08:15] VITALS: BP 101/62; PULSE 93; RESP 17; TEMP 36.3; O2SAT 100
== END 2023-01-28 11:08 | disposition home or self-care (01) | DRG 753 ==
LOC: HO.ED 01-24 01:02 → HO.PADLT16 01-24 19:03
PROVIDERS: Physician Assistant Medical; Social Worker; Admitting Provider Psychiatry & Neurology Psychiatry; Emergency Provider Emergency Medicine Emergency Medical Services; Visit Provider Psychiatry & Neurology Psychiatry
DX: F31.10 Bipolar disorder, current episode manic without psychotic features, unspecified (principal); Z91.148 Patient's other noncompliance with medication regimen for other reason; F17.210 Nicotine dependence, cigarettes, uncomplicated; F43.12 Post-traumatic stress disorder, chronic; Z20.822 Contact with and (suspected) exposure to COVID-19; Z91.52 Personal history of nonsuicidal self-harm; Z71.6 Tobacco abuse counseling; Z79.899 Other long term (current) drug therapy
CPT/HCPCS: 36415; 73630; 80048; 80053; 80061; 80076; 80164; 80307; 81001; 81025; 83036; 85025; 87086; 87635; 93005; 99284; J1200; J2060; S9485

== ENCOUNTER → 2023-01-24 18:34 | Outpatient (BNV) | payer OTHER, SELFPAY | PROVIDERS: Admitting Provider Psychiatry & Neurology Psychiatry; Emergency Provider Emergency Medicine Emergency Medical Services; Visit Provider Psychiatry & Neurology Psychiatry | DX: F31.13 Bipolar disorder, current episode manic without psychotic features, severe (principal) | CPT/HCPCS: 99231; 99232; 99233 ==

== ENCOUNTER 2023-04-07 14:18 | Emergency (ER) | payer MEDICAID, OTHER, SELFPAY ==
--- NOTE | ~2023-04-07 | US_ITS ---
EXAMINATION: US OBSTETRICAL ULTRASOUND CLINICAL INFORMATION: Vaginal bleeding. Elevated beta human chorionic gonadotropin. COMPARISON: None available. LMP: Unknown. Gestational age by maternal dates is n/a. Estimated date of delivery by maternal dates is n/a. TECHNIQUE: Transabdominal and transvaginal first trimester obstetrical ultrasound. Transvaginal exam was performed for better visualization of the uterus. FINDINGS: The uterus is anteverted and measures 9 x 3.5 x 5.2 cm in dimension. Endometrial thickness measures 1.2 cm. No intrauterine gestational sac is seen. Cervix is normal appearing. The right ovary measures 3.1 x 1.7 x 1.8 cm. There is a solid hypoechoic mass in the right adnexa measuring 2.9 x 2.3 x 2.1 cm. This has minimal vascularity. Appearance is concerning for ectopic . The left ovary is normal and measures 3 x 1.6 x 2 cm. There is a eircd-yz-cxmzrsrj amount of fluid in the pelvis. US/US OB pelvic and transvaginal IMPRESSION: No intrauterine seen. 2.9 x 2.3 x 2.1 cm solid hypoechoic right adnexal mass concerning for ectopic . Yrrry-ii-khnyabms amount of fluid in the pelvis. Findings were communicated to SALAS Maya by telephone on 04/07/2023 at 1711 hours
[2023-04-07 14:29] VITALS: BP 94/61; PULSE 99; RESP 18; TEMP 36.6; O2SAT 98; BMI 21.0
--- NOTE | 2023-04-07 14:30 | ED_ITS ---
HPI - General Adult General Chief complaint: Psychiatric Symptoms Stated complaint: Crisis Time Seen by Provider: 04/07/23 14:37 Source: patient Mode of arrival: ambulatory Limitations: no limitations History of Present Illness HPI narrative: Patient is a 23 year old assigned female at with a history of bipolar disorder and CPTSD presenting to the emergency department today with increased depression. Patient states that lately she has been much more depressed and has been out of her meds for quite some time. Patient states that she is not suicidal or homicidal. Patient denies any hallucinations. Patient is requesting to be evaluated by the CRISIS team. Patient denies any dizziness, lightheadedness, abdominal pain, nausea, vomiting, fever, chills, blurry vision, double vision, loss of vision, chest pain, difficulty breathing, shortness of breath, back pain, night sweats, pain with urination, increased urinary frequency, increased urinary urgency, blood in her urine or stool, syncope or a near syncopal episode, recent trauma or falls, bowel incontinence, bladder incontinence, bowel retention, bladder retention, or any other complaints at this time. Onset (ago): day(s) Relieving factors: none Exacerbating factors: none Associated symptoms: denies other symptoms Treatments prior to arrival: none Related Data Previous Rx's Medication Instructions Recorded clonidine HCl 0.1 mg tablet 0.1 mg PO TID 30 days #90 tabs 01/04/23 divalproex 500 mg tablet,extended 1,500 mg (3 x 500 mg) PO BEDTIME 01/04/23 release 24 hr 30 days #90 tabs nicotine (polacrilex) 2 mg gum 2 mg PO Q2H PRN Nicotine Cravings 01/04/23 30 days #100 ea quetiapine 25 mg tablet 25 mg PO Q6H PRN Anxiety 30 days 01/04/23 #120 tabs perphenazine 4 mg tablet 10 mg (2.5 x 4 mg) PO TID 30 days 01/27/23 #225 tabs quetiapine 100 mg tablet 100 mg PO BEDTIME 30 days #30 tabs 01/27/23 Allergies Allergy/AdvReac Type Severity Reaction Status Date / Time insect venom [MOSQUITO] Allergy Unknown UNKNOWN Verified 04/07/23 14:29 paliperidone [From INVEGA] Allergy Unknown DYSTONIC Verified 04/07/23 14:29 REACTION haloperidol [HALOPERIDOL] AdvReac Intermediate Dystonic Verified 04/07/23 14:29 reaction Review of Systems 2 Constitutional: Constitutional: Reports no additional constitutional complaints, Denies chills, Denies fever(s) and Denies night sweats Eyes: Eyes: Reports no additional eye complaints, Denies blurry vision, Denies change in vision, Denies diplopia, Denies eye discharge, Denies loss of vision and Denies eye pain ENT: Denies dizziness Cardiovascular: Cardiovascular: Reports no additional cardiovascular complaints, Denies chest pain, Denies lightheadedness, Denies Loss of Consciousness and Denies dyspnea Respiratory: Respiratory: Reports no additional respiratory complaints and Denies dyspnea Gastrointestinal: Gastrointestinal: Reports no additional gastrointestinal complaints, Denies abdominal pain, Denies melena, Denies hematochezia, Denies change in bowel habits and Denies change in stool character Genitourinary: Genitourinary: Denies hematuria, Denies urinary frequency, Denies dysuria, Denies urinary incontinence, Denies urinary hesitancy and Denies urinary urgency Musculoskeletal: Musculoskeletal: Reports no additional musculoskeletal complaints, Denies numbness and Denies tingling Neurologic: Denies dizziness, Denies loss of vision, Denies numbness and Denies tingling Psychiatric: Psychiatric: Reports depression Endocrine: Endocrine: Reports no additional endocrine complaints Hematologic/Lymphatic: Hematologic/Lymphatic: Reports no additional hematologic/lymphatic complaints Allergic/Immunologic: Allergic/Immunologic: Reports no additional allergic/immunologic complaints PMFSH Past Medical History Attestation statement: The following information was validated with the patient. Source: old records reviewed and nursing notes reviewed Medical History Chronic schizophrenia Bipolar disorder Depression Anxiety Bipolar 1 disorder Social History Social History Household Members: Other Household Members Other:: lives in [facility] - left 1 week ago Housing: House Housing Other:: [facility] Do you presently have visiting nurse or other home services: No Alcohol intake: never Comment: M3 Patient Tobacco Use Status: Current everyday Tobacco user Tobacco use type: Cigarette Cigarette Packs Per Day: 0.5 Cigarettes Per Day: 10.0 Years Smoked: 2 years Smoked in Last 30 Days: Yes e-Cigarette/Vaping Use: Currently Using Second Hand Smoke Exposure: No Use of substances other than those prescribed or required for medical reasons: Yes Substance Use Type: Marijuana Advance Directives: No Healthcare Proxy: No Guardian: No service: No Sexual orientation: Lesbian/Garcia/Homosexual Physical Exam ED Vital Signs: Vital Signs - 24 hr 04/07/23 14:29 04/07/23 17:07 04/07/23 20:28 Temperature 98 F 98.0 F Pulse Rate 99 80 72 Respiratory Rate 18 20 14 Blood Pressure 94/61 93/51 L 93/55 L Pulse Oximetry 98 100 Oxygen Delivery Method Room Air Room Air Room Air BMI result Body Mass Index 21.0 Const General: cooperative, no acute distress, alert and awake Nutritional Appearance: well nourished Orientation/consciousness: patient oriented x3 Limitations: no limitations HENMT Head: Yes normal to inspection and Yes atraumatic Ears: hearing grossly normal bilaterally and external ears normal General nose exam: Normal external nose present, no nasal discharge noted and no epistaxis Face and sinus: Yes normal facial exam, No abrasion and No laceration Mouth: Normal oral and palatal mucosa present, no drooling and no muffled voice Eyes General: appearance normal, both eyes and all related structures Periorbital: periorbital findings normal Eyelids: Yes eyelids normal Conjunctivae: conjunctivae normal Pupils: Equal, round and reactive pupils present EOM: EOMs intact bilaterally Neck Neck: Yes normal visual inspection, Yes full ROM and Yes no lymphadenopathy Chest Chest palpation & inspection: normal inspection of the chest Resp Effort & Inspection: normal respiratory effort and able to speak in complete sentences GI Inspection: Yes normal to inspection Neuro General: patient oriented x3 and moves all extremities Cranial nerves: Yes Equal, round and reactive pupils present Cognition (Neuro): normal cognition Motor exam (neuro): 5/5 motor strength present throughout Sensory Exam: Normal double simultaneous stimulation for sensation Coordination: uukcft-lv-hseo test normal Extrem General: Yes normal to inspection, Yes full ROM and Yes capillary refill normal Psych Appearance: grossly normal Mental Status: mental status grossly normal Affect: Sad affect present Attitude: cooperative Thought process: Normal thought process present Thought content: Normal thought content present Insight: Good insight present (Psych) Course Course Course Narrative: This is an RME: Additional HPI, ROS, PE not included below will be deferred to primary provider. This is a [id number][id number]-female, history of bipolar, schizophrenia presenting to the emergency department with complaints of increased depression. No reports of AH or VH. No SI/HI. Requesting crisis evaluation. Plan: Labs, UA 1645--received call from construction equipment technician, ultrasound concerning for ectopic . Will consult OBGYN, Dr. Lyons. -1715--spoke with radiologist, Dr. Cain, ultrasound concerning for right-sided ectopic, solid right adnexal mass with free fluid. No IUP. Dr. Lyons aware. Patient denies pain at present. US OB pelvic and transvaginal IMPRESSION: No intrauterine seen. 2.9 x 2.3 x 2.1 cm solid hypoechoic right adnexal mass concerning for ectopic . Sasyu-lz-wzawuour amount of fluid in the pelvis. Findings were communicated to SALAS Maya by telephone on 04/07/2023 at 1711 hours -patient is O positive, no RhoGAM indicated -Dr. Lyons evaluated patient in the ED, pelvic exam a performed with swabs obtained. Patient chose/agreeable to Methotrexate, will received IM Methotrexate in the ED. Will need close follow-up/repeat labs on Wednesday and Wednesday. Strict return precautions discussed including abdominal pain, persistent or worsening bleeding/clots, nausea/vomiting to return to the ED immediately. OBGYN office will call patient for follow-up -CARE team evaluated patient and cleared for discharge home. Mother here for support. Aware of situation Medications Administered Discontinued Medications Generic Name Dose Route Start Last Admin Trade Name Freq PRN Reason Stop Dose Admin Methotrexate 83 mg/ IV 3.32 mls @ 0 mls/hr 04/07/23 19:15 04/07/23 20:32 Miscellaneous Supplies IM 04/07/23 19:16 3.32 mls/hr ONCE ONE Administration As Directed Medical Decision Making Medical Decision Making MDM Narrative: Patient is a 23 year old assigned female at with a history of depression and CPTSD presenting to the emergency department today with increased depression. Patient's physical exam was unremarkable. Patient's blood work showed an elevated HCG of 865 but was otherwise unremarkable. Patient's urine showed evidence of a possible UTI however, patient denies any symptoms, will await US results before determining UTI treatment. If not currently , will await culture result. If , will treat. I explained my physical exam findings as well as all test results to the patient. I answered all questions asked by the patient. When discussing the elevated HCG and possibility of , the patient states that she is having vaginal bleeding right now. Patient states that she thought it was just her period and denies passing large amounts of having any pain. OB US ordered. Patient signed out to evening JOSE. Differential Diagnosis Differential Diagnoses: The differential diagnosis associated with the presentation includes Depression Crisis Vaginal bleeding Depression Admission/Observation Consideration of admission/observation: Escalation of care including admission/observation considered Disposition will be determined after US is completed and read as well as the CARE team evaluation. Lab Data [facility] Lab Attestation statement: I reviewed the patient's lab results. My interpretation of these labs are in the MDM Rationale portion of this note. 04/07/23 15:03 04/07/23 15:03 Labs: Lab Results 04/07/23 04/07/23 Range/Units 15:03 17:18 WBC 7.6 (4.8-10.8) X10*3/uL RBC 4.44 (4.20-5.50) X10*6/uL Hgb 13.5 (12.0-16.0) g/dl Hct 39.5 (37.0-47.0) % MCV 89.0 (80.0-98.0) fL MCH 30.4 (27.0-33.0) pg MCHC 34.2 (31.0-35.0) g/dl RDW 11.9 (11.0-16.0) % Plt Count 254 (160-400) X10*3/uL MPV 9.7 (9.4-12.3) fL Immature Gran % (Auto) 0.4 (0.0-0.4) % Neut % (Auto) 69.0 (45-73) % Lymph % (Auto) 25.6 (20-40) % [place] % (Auto) 4.2 (2-11) % Eos % (Auto) 0.4 (0-4) % Baso % (Auto) 0.4 (0-2) % Lymph # (Auto) 2.0 (1.2-4.9) X10*3/uL [place] # (Auto) 0.3 (0.1-1.2) X10*3/uL Eos # (Auto) 0.0 (0.0-0.4) X10*3/uL Baso # (Auto) 0.0 (0.0-0.2) X10*3/uL Abs Immat Gran (auto) 0.03 (0.00-0.03) X10*3/uL Absolute Neuts (auto) 5.3 (2.0-8.3) x10*3/uL Absolute Nucleated RBC 0.000 (0.0-0.012) X10*3/uL Nucleated RBC % (auto) 0.0 (0.0-0.2) /100WBC Sodium 137 (135-145) mmol/L Potassium 3.9 (3.3-5.1) mmol/L Chloride 103 (96-108) mmol/L Carbon Dioxide 27 (22-29) mmol/L Anion Gap 11 L (12-20) BUN 7 L (9-16) mg/dL Creatinine 0.65 (0.5-1.4) mg/dL Estim Creat Clear Calc 125.3 Estimated GFR > 60 Random Glucose 95 (60-115) mg/dL Calcium 10.1 (8.4-10.2) mg/dL Total Bilirubin 0.4 (0.0-1.0) mg/dL Direct Bilirubin 0.1 (0.0-0.5) mg/dL AST 17 (5-31) U/L ALT 8 (0-31) U/L Alkaline Phosphatase 56 (39-117) U/L Total Protein 7.7 (6.5-8.0) g/dL Albumin 4.3 (3.5-5.0) g/dL Beta HCG, Quant 865 mIU/mL Urine Color DK YELLOW Urine Appearance Cloudy Urine pH 6.5 (5.0-9.0) Ur Specific [place] 1.025 (1.005-1.025) Urine Protein 100 (2+) H (Neg-Trace) mg/dL Urine Glucose (UA) Negative (Negative) mg/dL Urine Ketones Trace (Negative) mg/dL Urine Blood Large (3+) H (Negative) Urine Nitrite Negative (Negative) Ur Leukocyte Esterase Trace H (Negative) Urine RBC >20 H (0-2) /HPF Urine WBC 6-10 H (0-5) /HPF Ur Squamous Epith Cells >20 (0-2) /HPF Urine Bacteria 2+ (None Seen) Hyaline Casts 0-2 (0-2) /LPF Urine Opiates Screen Not Detected (Not Detect) Urine Fentanyl Screen Not Detected (Not Detect) Ur Barbiturates Screen Not Detected (Not Detect) Ur Phencyclidine Scrn Not Detected (Not Detect) Ur Amphetamines Screen Not Detected (Not Detect) U Benzodiazepines Scrn Not Detected (Not Detect) Urine Cocaine Screen Not Detected (Not Detect) U Marijuana (THC) Screen POSITIVE H (Not Detect) Ethyl Alcohol < 10 mg/dL Blood Type O Positive Antibody Screen NEGATIVE Critical Care Time Critical Care Time Critical Care Time: Yes Total Critical Care Time: 35 Attestation: I spent 35 minutes of Critical Care Time with this patient. This does not include time spent on separately reported billable procedures. Discharge Plan Discharge Clinical Impression: Ectopic , Depression Patient Disposition: Home, Self-Care Prescriptions: No Action divalproex 500 mg Tablet Extended Release 24 Hr 1,500 mg PO BEDTIME 30 Days Qty: 90 0RF quetiapine 25 mg Tablet 25 mg PO Q6H PRN (Reason: Anxiety) 30 Days Qty: 120 0RF clonidine HCl 0.1 mg tablet 0.1 mg PO TID 30 Days Qty: 90 0RF nicotine (polacrilex) 2 mg gum 2 mg PO Q2H PRN (Reason: Nicotine Cravings) 30 Days Qty: 100 0RF quetiapine 100 mg Tablet 100 mg PO BEDTIME 30 Days Qty: 30 0RF perphenazine 4 mg Tablet 10 mg PO TID 30 Days Qty: 225 0RF Interventions: [place]-Suicide Risk Severity Scale Last Done: 04/07/23 17:45
[2023-04-07 15:09] LABS: MANUAL DIFF FLAG NO
[2023-04-07 15:15] LABS: Basophils Percent Auto 0.4 % (0-2); Eosinophils Percent Auto 0.4 % (0-4); Hematocrit 39.5 % (37.0-47.0); Hemoglobin 13.5 g/dl (12.0-16.0); Imm Gran Abs Auto 0.03 X10*3/uL (0.00-0.03); Imm Gran Pct Auto 0.4 % (0.0-0.4); Lymphocytes Percent Auto 25.6 % (20-40); Mean Corpuscular HGB Conc 34.2 g/dl (31.0-35.0); Mean Corpuscular Hemoglobin 30.4 pg (27.0-33.0); Mean Platelet Volume 9.7 fL (9.4-12.3); Monocytes Absolute Auto 0.3 X10*3/uL (0.1-1.2); Monocytes Percent Auto 4.2 % (2-11); Neutrophils Absolute Auto 5.3 x10*3/uL (2.0-8.3); Platelet Count 254 X10*3/uL (160-400); Red Blood Count 4.44 X10*6/uL (4.20-5.50); Red Cell Distribution Width 11.9 % (11.0-16.0); White Blood Count 7.6 X10*3/uL (4.8-10.8)
[2023-04-07 15:23] LABS: Appearance Urine Cloudy; Color Urine DK YELLOW; Glucose Urine UA Negative (Negative); Leukocyte Esterase Urine Trace (Negative); Nitrite Urine Negative (Negative); PH 6.5 (5.0-9.0); Specific Gravity - Urine 1.025 (1.005-1.025); UMIC TRIGGER UACC YES; Urine Blood Large (3+) (Negative); Urine Ketones Trace mg/dL (Negative); Urine Protein 100 (2+) mg/dL (Neg-Trace)
[2023-04-07 15:30] LABS: Amphetamine Screen Urine Not Detected (Not Detect); Barbiturates, Urine Not Detected (Not Detect); Benzodiazepines Screen Urine Not Detected (Not Detect); Cannabinoid Screen Urine POSITIVE (Not Detect); Cocaine Screen Urine Not Detected (Not Detect); Fentanyl, urine Not Detected (Not Detect); Opiate Screen Urine Not Detected (Not Detect); Phencyclidine Screen Urine Not Detected (Not Detect)
[2023-04-07 15:41] LABS: Bacteria Urine 2+ (None Seen); Hyaline Casts Urine 0-2 /LPF (0-2); RBC Urine >20 /HPF (0-2); Squamous Epithelial Cell Urine >20 /HPF (0-2); UACC Culture Trigger YES
[2023-04-07 15:45] LABS: HCG Quantitative 865 mIU/mL
[2023-04-07 15:48] LABS: Alanine Aminotransferase 8 U/L (0-31); Albumin Level 4.3 g/dL (3.5-5.0); Alkaline Phosphatase 56 U/L (39-117); Anion Gap 11 (12-20); Aspartate Amino Transferase 17 U/L (5-31); Bilirubin Direct 0.1 mg/dL (0.0-0.5); Bilirubin Total 0.4 mg/dL (0.0-1.0); Blood Urea Nitrogen 7 mg/dL (9-16); Calcium 10.1 mg/dL (8.4-10.2); Carbon Dioxide 27 mmol/L (22-29); Chloride 103 mmol/L (96-108); Creatinine Clr Calc Pharmacy 125.3; Estimated Glomerular Filt Rate > 60; Ethanol < 10 mg/dL; Glucose Random 95 mg/dL (60-115); Potassium 3.9 mmol/L (3.3-5.1); Sodium 137 mmol/L (135-145); Total Protein 7.7 g/dL (6.5-8.0)
[2023-04-07 17:07] VITALS: BP 93/51; PULSE 80; RESP 20; O2SAT 100
--- NOTE | 2023-04-07 17:47 | PC.NURSE ---
pt a&o x4, pleasant, calm, and cooperative. pt moved from 6H to ED7. on pelvic bed. pt set up for pelvic exam. awaiting Dr. Lyons. denies pain. care team to be called when pt having pelvic exam for pt support. pt has 1:1 sitter at bedside. denies SI/HI cassi, but reports feeling depressed. pt currently resting quietly on stretcher in no apparent distress. rr even/unlabored. call reyes within reach. plan of care ongoing.
--- NOTE | 2023-04-07 17:55 | P.CONOB_ITS ---
PROTECTIVE SERVICES SOCIAL WORKER - CN: HPI Data of Consult Consult date: 04/07/23 Primary Care Provider: [facility] Consult Narrative Narrative: I was consulted on Lauren Porter who is a 23 year old female presents emergency room with exacerbation of her depression was found out to have positive test, hCG was 865, Rh positive antibody screen negative. LMP around 2 months ago, the patient started having mild vaginal spotting a week ago with no abdominal was pelvic pain, no nausea or vomiting or any other concerns . cc:: CC: OB [facility] Past Medical History Medical History Chronic schizophrenia Bipolar disorder Depression Anxiety Bipolar 1 disorder Social History Social History Household Members: Other Household Members Other:: lives [facility] - left [facility] week ago Housing: House Housing Other:: prison Do you presently have visiting nurse or other home services: No Alcohol intake: never Comment: M3 Patient Tobacco Use Status: Current everyday Tobacco user Tobacco use type: Cigarette Cigarette Packs Per Day: 0.5 Cigarettes Per Day: 10.0 Years Smoked: 2 years Smoked in Last 30 Days: Yes e-Cigarette/Vaping Use: Currently Using Second Hand Smoke Exposure: No Use of substances other than those prescribed or required for medical reasons: Yes Substance Use Type: Marijuana Advance Directives: No service: No Sexual orientation: Lesbian/Garcia/Homosexual Meds Allergies Allergy/AdvReac Type Severity Reaction Status Date / Time insect venom [MOSQUITO] Allergy Unknown UNKNOWN Verified 04/07/23 14:29 paliperidone [From INVEGA] Allergy Unknown DYSTONIC Verified 04/07/23 14:29 REACTION haloperidol [HALOPERIDOL] AdvReac Intermediate Dystonic Verified 04/07/23 14:29 reaction [employer] WORKER Physical Exam Vitals Vital signs: Temp Pulse Resp BP Pulse Ox O2 Del Method 98 F 80 20 93/51 L 100 Room Air 04/07/23 14:29 04/07/23 17:07 04/07/23 17:07 04/07/23 17:07 04/07/23 17:07 04/07/23 17:07 BMI result Body Mass Index 21.0 Abdomen Auscultation/Inspection/Palpation: Normal bowel sounds, Soft, Non-distended and No tenderness Female Genitalia (Pelvic) Bladder/Urethra: Normal meatus Vulva: No lesions Vagina: Nontender and No erythema Cervix: Grossly normal Uterus: Normal size Adnexa/Parametria: Adnexal Tenderness: None and Adnexal Mass: None PR[employer]IVE SERVICES SOCIAL WORKER - Results Labs 04/07/23 15:03 04/07/23 15:03 Labs: Short CBC 04/07/23 Range/Units 15:03 WBC 7.6 (4.8-10.8) X10*3/uL Hgb 13.5 (12.0-16.0) g/dl Hct 39.5 (37.0-47.0) % Plt Count 254 (160-400) X10*3/uL BMP 04/07/23 15:03 Sodium 137 Potassium 3.9 Chloride 103 Carbon Dioxide 27 BUN 7 L Creatinine 0.65 Calcium 10.1 Liver Function 04/07/23 Range/Units 15:03 Total Bilirubin 0.4 (0.0-1.0) mg/dL Direct Bilirubin 0.1 (0.0-0.5) mg/dL AST 17 (5-31) U/L ALT 8 (0-31) U/L Alkaline Phosphatase 56 (39-117) U/L Albumin 4.3 (3.5-5.0) g/dL Urine 04/07/23 Range/Units 15:03 Urine Color DK YELLOW Urine Appearance Cloudy Urine pH 6.5 (5.0-9.0) Ur Specific [place] 1.025 (1.005-1.025) Urine Protein 100 (2+) H (Neg-Trace) mg/dL Urine Glucose (UA) Negative (Negative) mg/dL Imaging US - abdomen: Radiologist's impression: ITS Impressions Pelvic/Transvag US 04/07/23 16:13 IMPRESSION: No intrauterine seen. 2.9 x 2.3 x 2.1 cm solid hypoechoic right adnexal mass concerning for ectopic . [id number]-[id number]-ymtydtbu amount of fluid in the pelvis. Findings were communicated to SALAS Maya by telephone on 04/07/2023 at 1711 hours Assessment and Plan (1) Early stage of : Status: Acute Plan Discussed with the patient the findings on ultrasound 2.9 x 2.3 x 2.1 cm solid hypoechoic right adnexal mass concerning for ectopic with no evidence of intrauterine . Discussed with the patient differential diagnosis including intrauterine early , SAB or ectopic . Discussed with the patient treatment options including the following: Option 1, expected management, repeat HCG every 48 hours with warning signs of SAB versus ectopic, waiting for the clinical picture is a little more clear to the diagnosis of ectopic versus intrauterine with the risk of delaying diagnosis of an ectopic intra-abdominal rupture and bleeding and risk of morbidity mortality and benefit of preventing methotrexate treatment and its possible exposure of a possible intrauterine and risk of teratogenicity and SAB. Option 2, to start with Suction D and C to rule out intrauterine followed by HCG levels and determined SAB versus ectopic, the risk of this approach being termination of a live intrauterine that is early undetected by ultrasound, the risk being delayed diagnosis of ectopic and/or potential consequences. Option 3 is methotrexate treatment; All the pros and cons risks and benefits of this approach were discussed with the patient including but not limited to, failure rate of MTX ~15%, possible exposure of methotrexate teratogenicity to an early intrauterine not diagnosed by ultrasound with the risk of SAB and severe deformities, possibility of a early intrauterine . The patient decided to proceed with methotrexate treatment. Discussed with the patient the common side effects of the medication, including skin rash, sensitivity to the sun, indigestion, nausea, sore mouth were discussed with the patient. Less common side effects (occurring in less than 2% of patients) were also discussed a drop in blood cell counts or temporary elevation in liver enzymes. All questions were answered and recommended follow up reviewed. Plan methotrexate 50 mg/m2 BSA x 1.66 m2 BSA = 83 mg methotrexate IM x 1. Patient information sheet was given to the patient and instructed patient not to have intercourse or perform strenuous exercises or activities avoid sun exposure The patient was given to the instructions to follow up with hCG day 4 and 7 and follow with an appointment day 7. Signs and symptoms of ruptured ectopic discussed with the patient, she is to call or go to the ER if abdominal pain occurs, Otherwise will follow up with HCG day 4 and repeat HCG day 7 and a follow-up appointment. All questions were answered pt verbalized understanding.
--- NOTE | 2023-04-07 20:12 | PC.NURSE ---
Methotrexate unavailable in [facility]. Called pharmacy and they will send medication down.
[2023-04-07 20:28] VITALS: BP 93/55; PULSE 72; RESP 14; TEMP 36.7
--- NOTE | 2023-04-07 20:33 | MHC.CARE ---
Referral to [facility] is faxed over.
--- NOTE | 2023-04-07 20:47 | PC.NURSE ---
PT aox4 resting the bedside. VS. Denies SI/HI at this time. Medicated as ordered. Pt tolerated well. Monitoring is ongoing.
[2023-04-08 02:02] LABS: CT PCR NOT DETECTED (Not Detect.); NG PCR NOT DETECTED (Not Detect.)
[2023-04-08 15:06] LABS: BV Int Neg Control Negative (Negative); BV Int Pos Control Positive (Positive)
== END 2023-04-07 21:20 | disposition home or self-care (01) ==
PROVIDERS: Physician Assistant; Physician Assistant Medical; Emergency Provider Emergency Medicine
DX: O00.90 Unspecified ectopic pregnancy without intrauterine pregnancy (principal); F33.1 Major depressive disorder, recurrent, moderate; F17.210 Nicotine dependence, cigarettes, uncomplicated; Z71.6 Tobacco abuse counseling; Z79.899 Other long term (current) drug therapy
CPT/HCPCS: 0353U; 36415; 76801; 76817; 80048; 80076; 80307; 81001; 84702; 85025; 86850; 86900; 86901; 87086; 87480; 87510; 87660; 96372; 99284; 99285; J9250; S9485

== ENCOUNTER → 2023-04-07 15:14 | Outpatient (BNV) | payer MEDICAID, SELFPAY | PROVIDERS: Emergency Provider Emergency Medicine; Visit Provider Obstetrics & Gynecology | DX: Z34.90 Encounter for supervision of normal pregnancy, unspecified, unspecified trimester (principal) | CPT/HCPCS: 99283 ==

== ENCOUNTER 2023-04-13 08:26 | Outpatient (REF) | payer MEDICAID, SELFPAY ==
[2023-04-13 09:50] LABS: HCG Quantitative 485 mIU/mL
--- NOTE | 2023-04-13 19:00 | MHC.CARE ---
CARE Team made aware that pt did not show up to her appointment with RONAN NORWOOD. Pt and mother were previously made aware the importance of attending this appointment. I attempted to contact pt's emergency contacts and received no answers. Care team contacted [facility] who indicated she spoke to pt and mother and was told that the plan was for them to come to the appointment today. Due to no response from pt, she has been placed on alert with [facility].
== END 2023-04-13 08:27 | disposition home or self-care (01) ==
LOC: HO.LAB 08:26
PROVIDERS: Visit Provider Obstetrics & Gynecology
DX: Z34.90 Encounter for supervision of normal pregnancy, unspecified, unspecified trimester (principal)
CPT/HCPCS: 36415; 84702

== ENCOUNTER 2023-04-15 13:49 | Emergency (ER) | payer OTHER, SELFPAY ==
[2023-04-15 13:53] VITALS: BP 86/54; PULSE 99; RESP 16; TEMP 37.1; O2SAT 98; BMI 21.3
--- NOTE | 2023-04-15 13:56 | ED.GENADULT ---
HPI - General Adult General Chief complaint: Urogenital-Female Stated complaint: Referred by Dr Eryn slaughter lab work Time Seen by Provider: 04/15/23 14:10 Source: patient Mode of arrival: ambulatory Limitations: no limitations History of Present Illness HPI narrative: This is a 23-year-old female history of recent ectopic presenting to the emergency department requesting an hCG and requesting to see OBGYN provider. Patient reports intermittent lower abdominal cramping however in not present at this time. Patient tells me crisis told her to come in. Denies fevers, chills, nausea, vomiting, vaginal bleeding, chest pain, shortness of breath, headache, vision changes, dizziness and weakness. Crisis checked in on patient because she did not go to her appointments. She is not suicidal, homicidal no hallucinations. Reports med compliance. Reports she is doing well with grieving. Related Data Previous Rx's Medication Instructions Recorded clonidine HCl 0.1 mg tablet 0.1 mg PO TID 30 days #90 tabs 01/04/23 divalproex 500 mg tablet,extended 1,500 mg (3 x 500 mg) PO BEDTIME 01/04/23 release 24 hr 30 days #90 tabs nicotine (polacrilex) 2 mg gum 2 mg PO Q2H PRN Nicotine Cravings 01/04/23 30 days #100 ea quetiapine 25 mg tablet 25 mg PO Q6H PRN Anxiety 30 days 01/04/23 #120 tabs perphenazine 4 mg tablet 10 mg (2.5 x 4 mg) PO TID 30 days 01/27/23 #225 tabs quetiapine 100 mg tablet 100 mg PO BEDTIME 30 days #30 tabs 01/27/23 Allergies Allergy/AdvReac Type Severity Reaction Status Date / Time insect venom [MOSQUITO] Allergy Unknown UNKNOWN Verified 04/07/23 14:29 paliperidone [From INVEGA] Allergy Unknown DYSTONIC Verified 04/07/23 14:29 REACTION haloperidol [HALOPERIDOL] AdvReac Intermediate Dystonic Verified 04/07/23 14:29 reaction Review of Systems Review of Systems: Constitutional : No Weight loss, No Fever, No Chills, No Fatigue, No Malaise ENT/Mouth : No sore throat, No Rhinorrhea Eyes: No Eye Pain, No Swelling, No Redness Cardiovascular : No Chest Pain, No SOB, No Dyspnea on Exertion, No Orthopnea, No Edema, No Palpitations Respiratory : No Cough, No Sputum, No Wheezing Gastrointestinal : No Nausea, No Vomiting, No Diarrhea, No Constipation, No abdominal Pain, No Hematochezia, No Melena Genitourinary : No Dysuria, No Urinary Frequency, No Hematuria, Musculoskeletal : No joint pain, No Myalgias, No Joint Swelling Skin : No Skin Lesions, No rash Neuro : No Weakness, No Numbness, No Dizziness, No Headache Psych : No Anxiety/Panic, No Depression All other systems reviewed and are negative Yes all other systems are reviewed and are negative [facility] Past Medical History Attestation statement: The following information was validated with the patient. Source: old records reviewed and nursing notes reviewed Medical History Chronic schizophrenia Bipolar disorder Depression Anxiety Bipolar 1 disorder Social History Social History Household Members: Other Household Members Other:: lives in intermediate - left 1 week ago Housing: House Housing Other:: intermediate Do you presently have visiting nurse or other home services: No Alcohol intake: never Comment: M3 Patient Tobacco Use Status: Current everyday Tobacco user Tobacco use type: Cigarette Cigarette Packs Per Day: 0.5 Cigarettes Per Day: 10.0 Years Smoked: 2 years e-Cigarette/Vaping Use: Currently Using Second Hand Smoke Exposure: No Substance Use Type: Marijuana service: No Sexual orientation: Lesbian/Garcia/Homosexual Physical Exam ED Vital Signs: Vital Signs - 24 hr 04/15/23 13:53 Temperature 98.7 F Pulse Rate 99 Respiratory Rate 16 Blood Pressure 86/54 L Pulse Oximetry 98 Oxygen Delivery Method Room Air BMI result Body Mass Index 21.3 Slightly hypotensive Appearance: Alert.? Oriented X3.? No acute distress.? Head: Normocephalic, atraumatic, no step-offs or deformities Eyes: Pupils equal, round and reactive to light.? Neck: Normal inspection.? Neck supple.? CVS: Normal heart rate and rhythm.? Pulses normal.? Respiratory: No respiratory distress.? Breath sounds normal.? Abdomen: Soft and nontender.? Skin: Skin warm and dry.? Normal skin color.? Normal skin turgor.? Extremities: No lower extremity edema.? No calf ttp. 5/5 strength to bilateral upper and lower extremities Neuro: Oriented X 3.? No motor deficit.? No sensory deficit. CN 2-12 intact Course Course Course Narrative: This is an RME: Additional HPI, ROS, PE not included below will be deferred to primary provider. This is a 8-ay[age]-female presenting to the emergency department with alteration worker for follow up regarding ectopic . On 04/07/2023 of his discover that patient was and had an ectopic . She was given methotrexate and was post to follow-up doctors are be she has not been followed by doctors or be which he expressed concerns regarding this as they need to ensure that her levels are trending down. Her crisis team is concerned regarding her mental capacity and not showing up to appointments, I was made aware of the situation by the crisis team. 1400- reach out to Dr. Lyons to inform him that patient is in the emergency department, will order basic labs in beta hCG; have not heard back from him Plan: Labs Reevaluation(s) Reevaluation #1: On chart review it appears as though patient found out that she was having an ectopic on 04/07/2023, subsequently she got methotrexate, she had a follow-up appointment however did not show up for follow-up. Time: 14:39 Reevaluation #2: Dr. Serena Newton came down to the department to evaluate patient, would like her to follow up on Wednesday for repeat hCG and an office appointment. At 10:00. Patient verbalizes understanding of this. Time: 15:24 Reevaluation #3: Patient will be evaluated by psychiatrist Dr. Aranda. Time: 16:52 Additional Reevaluation(s): Your team came to evaluate patient due to concerns for possible depression she reports she is doing well, no depression, bipolar schizophrenia, not suicidal or homicidal. She is doing well, normal affect. Ruth from care team feels as though patient can be discharged home with outpatient follow-up and should return here on Wednesday for a scheduled appointment with OBGYN. This also was discussed with who agrees w/ plan. At this time I feel comfortable discharge home. Educated patient on diagnosis and treatment plan, answered all question, patient verbalizes understanding. At this time patient will be discharged home, advised to return with new or worsening symptoms. Educated on worrisome signs and symptoms and when to return. At this time I feel comfortable discharge home. Medications Administered Discontinued Medications Generic Name Dose Route Start Last Admin Trade Name Freq PRN Reason Stop Dose Admin Sodium Chloride 1,000 mls @ 999 mls/hr 04/15/23 14:15 04/15/23 14:28 Ns IV 04/15/23 15:15 999 mls/hr .Q1H1M GAVIOTA Administration Medical Decision Making Medical Decision Making [facility] Narrative: 23-year-old female presents with intermittent lower abdominal cramping not present at this time, recent history of ectopic Physical examination benign Concerns for possible retained products versus ectopic . Will rule out metabolic derangements, anemia. Plan at this time labs, will reach out OBGYN Differential Diagnosis Differential Diagnoses: The differential diagnosis associated with the presentation includes Concerns for possible retained products versus ectopic . Will rule out metabolic derangements, anemia. Admission/Observation Consideration of admission/observation: Escalation of care including admission/observation considered Possible Consult Healthcare Provider Management of the patient was discussed with: [employer] Operator (OBRONALDN ) Lab Data [facility] Lab Attestation statement: I reviewed the patient's lab results. 04/15/23 14:26 04/15/23 14:26 Labs: Lab Results 04/15/23 Range/Units 14:26 WBC 7.9 (4.8-10.8) X10*3/uL RBC 4.26 (4.20-5.50) X10*6/uL Hgb 12.8 (12.0-16.0) g/dl Hct 38.1 (37.0-47.0) % MCV 89.4 (80.0-98.0) fL MCH 30.0 (27.0-33.0) pg MCHC 33.6 (31.0-35.0) g/dl RDW 12.3 (11.0-16.0) % Plt Count 245 (160-400) X10*3/uL MPV 9.2 L (9.4-12.3) fL Immature Gran % (Auto) 0.4 (0.0-0.4) % Neut % (Auto) 72.6 (45-73) % Lymph % (Auto) 21.8 (20-40) % Gila % (Auto) 4.2 (2-11) % Eos % (Auto) 0.6 (0-4) % Baso % (Auto) 0.4 (0-2) % Lymph # (Auto) 1.7 (1.2-4.9) X10*3/uL Gila # (Auto) 0.3 (0.1-1.2) X10*3/uL Eos # (Auto) 0.1 (0.0-0.4) X10*3/uL Baso # (Auto) 0.0 (0.0-0.2) X10*3/uL Abs Immat Gran (auto) 0.03 (0.00-0.03) X10*3/uL Absolute Neuts (auto) 5.7 (2.0-8.3) x10*3/uL Absolute Nucleated RBC 0.000 (0.0-0.012) X10*3/uL Nucleated RBC % (auto) 0.0 (0.0-0.2) /100WBC Sodium 140 (135-145) mmol/L Potassium 3.7 (3.3-5.1) mmol/L Chloride 107 (96-108) mmol/L Carbon Dioxide 28 (22-29) mmol/L Anion Gap 9 L (12-20) BUN 6 L (9-16) mg/dL Creatinine 0.67 (0.5-1.4) mg/dL Estim Creat Clear Calc 122.2 Estimated GFR > 60 Random Glucose 100 (60-115) mg/dL Calcium 9.4 D (8.4-10.2) mg/dL Total Bilirubin 0.2 (0.0-1.0) mg/dL Direct Bilirubin < 0.2 (0.0-0.5) mg/dL AST 14 (5-31) U/L ALT 7 (0-31) U/L Alkaline Phosphatase 61 (39-117) U/L Total Protein 7.1 (6.5-8.0) g/dL Albumin 4.0 (3.5-5.0) g/dL Beta HCG, Quant 363 mIU/mL Blood Type O Positive Antibody Screen NEGATIVE Tests considered The following testing was considered but not selected: Nontender abdomen no indication for ultrasound or CT abdomen pelvis at this time. Critical Care Time Critical Care Time Critical Care Time: Yes Total Critical Care Time: 35 Attestation: I attest to this time spent taking care of the patient, obtaining history, physical, reviewing labs, imaging, speaking to my attending, speaking to specialist. Discharge Plan Discharge Clinical Impression: , ectopic Patient Disposition: Home, Self-Care Instructions: Ectopic (DC) Additional Instructions: Take your medications as prescribed. If you were prescribed antibiotics today, it is important that you take your medication to their entirety, do not skip any doses, do not finish them early. Follow-up with your primary care provider this week. Return to the emergency department with new or worsening symptoms. Such as fevers, chills, chest pain, shortness of breath, nausea, vomiting, dizziness, headache, vision changes, lethargy In case of emergency call [address] Lyons on wednesday for apt at 10:00 am, and repeat HCG Prescriptions: No Action divalproex 500 mg Tablet Extended Release 24 Hr 1,500 mg PO BEDTIME 30 Days Qty: 90 0RF quetiapine 25 mg Tablet 25 mg PO Q6H PRN (Reason: Anxiety) 30 Days Qty: 120 0RF clonidine HCl 0.1 mg tablet 0.1 mg PO TID 30 Days Qty: 90 0RF nicotine (polacrilex) 2 mg gum 2 mg PO Q2H PRN (Reason: Nicotine Cravings) 30 Days Qty: 100 0RF quetiapine 100 mg Tablet 100 mg PO BEDTIME 30 Days Qty: 30 0RF perphenazine 4 mg Tablet 10 mg PO TID 30 Days Qty: 225 0RF Referrals: [facility] [Primary Care Provider] - 2 days Evaristo Lyons MD [Physician] - 04/19/23 10:00 am Stand Alone Forms: Work/School Release
[2023-04-15] MEDS: 0.9 % Sodium Chloride 1,000 ML 999 ML IV (14:28)
--- NOTE | 2023-04-15 14:29 | PC.NURSE ---
Patient made aware of plan for IV fluid and labs per provider, patient cooperative and agreeable with plan. IV established, labs drawn/sent. IVF infusing. Call reyes within reach, patient resting comfortably on stretcher.
[2023-04-15 14:31] LABS: MANUAL DIFF FLAG NO
[2023-04-15 14:39] LABS: Basophils Percent Auto 0.4 % (0-2); Eosinophils Absolute Auto 0.1 X10*3/uL (0.0-0.4); Eosinophils Percent Auto 0.6 % (0-4); Hematocrit 38.1 % (37.0-47.0); Hemoglobin 12.8 g/dl (12.0-16.0); Imm Gran Abs Auto 0.03 X10*3/uL (0.00-0.03); Imm Gran Pct Auto 0.4 % (0.0-0.4); Lymphocytes Absolute Auto 1.7 X10*3/uL (1.2-4.9); Lymphocytes Percent Auto 21.8 % (20-40); Mean Corpuscular HGB Conc 33.6 g/dl (31.0-35.0); Mean Corpuscular Volume 89.4 fL (80.0-98.0); Mean Platelet Volume 9.2 fL (9.4-12.3); Monocytes Absolute Auto 0.3 X10*3/uL (0.1-1.2); Monocytes Percent Auto 4.2 % (2-11); Neutrophils Absolute Auto 5.7 x10*3/uL (2.0-8.3); Neutrophils Percent Auto 72.6 % (45-73); Platelet Count 245 X10*3/uL (160-400); Red Blood Count 4.26 X10*6/uL (4.20-5.50); Red Cell Distribution Width 12.3 % (11.0-16.0); White Blood Count 7.9 X10*3/uL (4.8-10.8)
[2023-04-15 14:56] LABS: Alanine Aminotransferase 7 U/L (0-31); Alkaline Phosphatase 61 U/L (39-117); Anion Gap 9 (12-20); Aspartate Amino Transferase 14 U/L (5-31); Bilirubin Direct < 0.2 mg/dL (0.0-0.5); Bilirubin Total 0.2 mg/dL (0.0-1.0); Blood Urea Nitrogen 6 mg/dL (9-16); Calcium 9.4 mg/dL (8.4-10.2); Carbon Dioxide 28 mmol/L (22-29); Chloride 107 mmol/L (96-108); Creatinine Clr Calc Pharmacy 122.2; Estimated Glomerular Filt Rate > 60; Glucose Random 100 mg/dL (60-115); HCG Quantitative 363 mIU/mL; Potassium 3.7 mmol/L (3.3-5.1); Sodium 140 mmol/L (135-145); Total Protein 7.1 g/dL (6.5-8.0)
--- NOTE | 2023-04-15 15:12 | PM.GYNCN ---
CHART CALCULATOR - CN: HPI Data of Consult Consult date: 04/15/23 Primary Care Provider: [facility] Consult Narrative Narrative: I was consulted on Lauren Porter who is a 23 year old female who was seen in the emergency room on 04/07, was diagnosed ectopic , was consult about different options of treatment and decide procedures methotrexate which was given. HCG on 04/07 865. Day 4 hCG was missed. Day 7 hCG dropped to 485. The patient canceled her day 7 appoint the office and reschedule for today and no showed. Care team from psychiatry brought the patient emergency room for evaluation. The patient is doing well with no complaints with no abdominal pain or vaginal bleeding. HCG repeated today was 363. Blood type O positive cc:: CC: OB PMF Past Medical History Medical History Chronic schizophrenia Bipolar disorder Depression Anxiety Bipolar 1 disorder Social History Social History Household Members: Other Household Members Other:: lives [facility] - [facility] ago Housing: House Housing Other:: [facility] Do you presently have visiting nurse or other home services: No Alcohol intake: never Comment: M3 Patient Tobacco Use Status: Current everyday Tobacco user Tobacco use type: Cigarette Cigarette Packs Per Day: 0.5 Cigarettes Per Day: 10.0 Years Smoked: 2 years e-Cigarette/Vaping Use: Currently Using Second Hand Smoke Exposure: No Substance Use Type: Marijuana service: No Sexual orientation: Lesbian/Garcia/Homosexual Meds Allergies Allergy/AdvReac Type Severity Reaction Status Date / Time insect venom [MOSQUITO] Allergy Unknown UNKNOWN Verified 04/07/23 14:29 paliperidone [From INVEGA] Allergy Unknown DYSTONIC Verified 04/07/23 14:29 REACTION haloperidol [HALOPERIDOL] AdvReac Intermediate Dystonic Verified 04/07/23 14:29 reaction Active Medications: Current Medications Sodium Chloride (Ns) 1,000 mls @ 999 mls/hr IV .Q1H1M GAVIOTA Stop: 04/15/23 15:15 Last Admin: 04/15/23 14:28 Dose: 999 mls/hr CHART CALCULATOR Physical Exam Vitals Vital signs: Temp Pulse Resp BP Pulse Ox O2 Del Method 98.7 F 99 16 86/54 L 98 Room Air 04/15/23 13:53 04/15/23 13:53 04/15/23 13:53 04/15/23 13:53 04/15/23 13:53 04/15/23 13:53 BMI result Body Mass Index 21.3 Abdomen Auscultation/Inspection/Palpation: Normal bowel sounds and Soft CHART CALCULATOR - Results Labs 04/15/23 14:26 04/15/23 14:26 Labs: Short CBC 04/15/23 Range/Units 14:26 WBC 7.9 (4.8-10.8) X10*3/uL Hgb 12.8 (12.0-16.0) g/dl Hct 38.1 (37.0-47.0) % Plt Count 245 (160-400) X10*3/uL BMP 04/15/23 14:26 Sodium 140 Potassium 3.7 Chloride 107 Carbon Dioxide 28 BUN 6 L Creatinine 0.67 Calcium 9.4 D Liver Function 04/15/23 Range/Units 14:26 Total Bilirubin 0.2 (0.0-1.0) mg/dL Direct Bilirubin < 0.2 (0.0-0.5) mg/dL AST 14 (5-31) U/L ALT 7 (0-31) U/L Alkaline Phosphatase 61 (39-117) U/L Albumin 4.0 (3.5-5.0) g/dL Assessment and Plan (1) Ectopic : Status: Inactive Instructed the patient to repeat hCG on Thursday 04/19 then weekly, to call or go to the emergency room in case of abdominal pain and/or vaginal bleeding and to follow-up for an exam and evaluation after hCG on 04/19. The patient is aware of the appointment at 10:00 a.m. Explained to the patient the importance of follow-up to monitor ectopic in hCG levels and rule out failure of the treatment and intervene promptly in an effort to prevent ruptured ectopic with intra-abdominal bleed and all its potential consequences. The patient verbalized understanding Offered the patient different options of control, the patient declined at this point. Discussed with the patient that Methotrexate is cleared from the serum before the 4 to12 weeks necessary for the resolution of the ectopic gestation and ovulation in the next cycle . However, there are reports of methotrexate detectable in liver cells 116 days past exposure . Limited evidence suggests that the frequency of congenital anomalies or early loss is not elevated in women who have become shortly after methotrexate exposure . However, perhaps based on the timing of methotrexate clearance from the body, some experts continue to recommend that women delay for at least 3 months after the last dose of methotrexate. All questions answered, the patient verbalized understanding
--- NOTE | 2023-04-15 18:15 | PC.NURSE ---
spoke with sherlyn from care team pt is ok to go home, will arrange for lift transport
--- NOTE | 2023-04-15 21:25 | MHC.CARE ---
Tw faxed a referral to [facility], please follow up.
--- NOTE | 2023-04-16 11:27 | MHC.CARE ---
RAD team spoke with intake at [facility], who stated the referral has been received and is in review. She stated that they are full now but there is a possible discharge today or tomorrow.
--- NOTE | 2023-04-22 15:05 | MHC.CARE ---
CARE Team received call from Dr. Lyons, OBGYN office who said patient missed her scheduled appointment and does need to have a blood test, they have been unable to reach patient and asked for assistance. Call to patient?s mother and grandmother, both numbers were not working. Call to Rupa Clements [facility] worker ([phone]), she was aware that patient missed her appointment, she has been urging her to come to the hospital for the labs. Rupa saw patient today and noted that she was disheveled, unshowered, smelled of cat urine and believes she should be inpatient for psychiatric treatment. She stated they made a plan for patient to go home, shower and change her clothes and Rupa will pick her up for a [employer] republican at 4:00 today and will strongly encourage patient to follow up with the laboratory. Advised she can also 911 as it seems that patient is more decompensated than last week or bring her to the ED. Call to [place] [employer] Clinician ([phone]) who is familiar with patient and brought her here last week, and gave her an update about patient/appts further lack of self care. She will go to patient?s house tomorrow late morning, offer to bring her to the hospital and will update the CARE Team.
== END 2023-04-15 18:16 | disposition home or self-care (01) ==
PROVIDERS: Physician Assistant Medical; Emergency Provider Internal Medicine
DX: O00.90 Unspecified ectopic pregnancy without intrauterine pregnancy (principal); R10.30 Lower abdominal pain, unspecified; F17.210 Nicotine dependence, cigarettes, uncomplicated; Z79.899 Other long term (current) drug therapy
CPT/HCPCS: 36415; 80048; 80076; 84702; 85025; 86850; 86900; 86901; 99283; S9485

== ENCOUNTER → 2023-04-15 14:44 | Outpatient (BNV) | payer MEDICAID, SELFPAY | PROVIDERS: Visit Provider Obstetrics & Gynecology | DX: O00.90 Unspecified ectopic pregnancy without intrauterine pregnancy (principal) | CPT/HCPCS: 99283 ==

== ENCOUNTER 2023-04-23 14:16 | Outpatient (REF) | payer MEDICAID, SELFPAY ==
[2023-04-23 14:56] LABS: HCG Quantitative 13 mIU/mL
== END 2023-04-23 14:17 | disposition home or self-care (01) ==
LOC: HO.LAB 14:16
PROVIDERS: Visit Provider Obstetrics & Gynecology
DX: Z34.90 Encounter for supervision of normal pregnancy, unspecified, unspecified trimester (principal)
CPT/HCPCS: 36415; 84702

== ENCOUNTER 2023-04-29 15:31 | Outpatient (REF) | payer MEDICAID, SELFPAY ==
[2023-04-29 18:02] LABS: HCG Quantitative < 2 mIU/mL
== END 2023-04-29 15:32 | disposition home or self-care (01) ==
LOC: HO.LAB 15:31
PROVIDERS: Visit Provider Obstetrics & Gynecology
DX: O00.90 Unspecified ectopic pregnancy without intrauterine pregnancy (principal)
CPT/HCPCS: 36415; 84702

== ENCOUNTER 2023-06-03 15:44 | Inpatient (IN) | payer OTHER, MEDICAID, SELFPAY ==
[2023-06-03 15:46] VITALS: BP 107/66; PULSE 111; RESP 18; TEMP 37; O2SAT 98; BMI 22.6
--- NOTE | 2023-06-03 15:47 | ED.GENADULT ---
HPI - General Adult General Chief complaint: Psychiatric Symptoms Stated complaint: crisis eval feeling suicidal Time Seen by Provider: 06/03/23 16:15 Source: patient Mode of arrival: ambulatory Limitations: no limitations History of Present Illness HPI narrative: 23 yo female with PMH of bipolar disorder, depression, chronic PTSD notes she has not been on her medications in months and is very depressed. She thinks a lot about dying and not living. Has no plan. No medical complaints MD complaint: depression with SI Onset (ago): week(s) Severity: moderate Relieving factors: none Exacerbating factors: other Associated symptoms: denies other symptoms Treatments prior to arrival: none Related Data Home Medications Medication Instructions Recorded Confirmed aripiprazole 400 mg suspension, 400 mg IM QMONTH 06/03/23 06/03/23 extended rel.intramuscular syringe (Ondina Zapien) Allergies Allergy/AdvReac Type Severity Reaction Status Date / Time insect venom [MOSQUITO] Allergy Unknown UNKNOWN Verified 06/03/23 15:50 paliperidone [From INVEGA] Allergy Unknown DYSTONIC Verified 06/03/23 15:50 REACTION haloperidol [HALOPERIDOL] AdvReac Intermediate Dystonic Verified 06/03/23 15:50 reaction Review of Systems Review of Systems: Constitutional : No Fever, No Chills ENT/Mouth : No Ear Pain, No Nasal Congestion, No sore throat Eyes: No Eye Pain, No Swelling, No Redness Cardiovascular : No Chest Pain, No SOB Respiratory : No Cough, No Sputum, No Dyspnea Gastrointestinal : No Nausea, No Vomiting, No Diarrhea, No Hematochezia, No Melena Genitourinary : No Dysuria, No Urinary Frequency, No Hematuria Musculoskeletal : No Myalgias Skin : No Skin Lesions, No rash Neuro : No Weakness, No Numbness, No Paresthesias, No Dizziness, No Headache Psych : positive Anxiety, positive Depression, positive SI no HI Heme/Lymph: No Lymphadenopathy Endocrine : No Polyuria, No Polydipsia All other systems reviewed and are negative COUNT INCLUDES THE [facility] Past Medical History Attestation statement: The following information was validated with the patient. Source: old records reviewed Medical History Chronic schizophrenia Bipolar disorder Depression Anxiety Bipolar 1 disorder Social History Social History Household Members: Other Household Members Other:: lives [place] [facility] - left 1 week ago Housing: House Housing Other:: [facility] Do you presently have visiting nurse or other home services: No Alcohol intake: never Comment: Pt is interested in starting control Patient Tobacco Use Status: Current everyday Tobacco user Tobacco use type: Cigarette Cigarette Packs Per Day: 0.5 Cigarettes Per Day: 10.0 Years Smoked: 2 years e-Cigarette/Vaping Use: Currently Using Second Hand Smoke Exposure: No Substance Use Type: Marijuana Advance Directives: No Advance Directives Information Provided: No Healthcare Proxy: No Guardian: No service: No Sexual orientation: Lesbian/Garcia/Homosexual Physical Exam ED Vital Signs: Vital Signs - 24 hr 06/03/23 15:46 06/03/23 16:31 06/04/23 06:56 Temperature 98.6 F 97.3 F Pulse Rate 111 H 72 Respiratory Rate 18 18 16 Blood Pressure 107/66 95/62 Pulse Oximetry 98 99 Oxygen Delivery Method Room Air Room Air BMI result Body Mass Index 22.6 Appearance: Alert. Oriented X3. No acute distress. Eyes: Pupils equal, round and reactive to light. ENT: Pharynx normal. Neck: Normal inspection. Neck supple. CVS: Normal heart rate and rhythm. Pulses normal. Respiratory: No respiratory distress. Breath sounds normal. Abdomen: Soft and nontender. Skin: Skin warm and dry. Normal skin color. Normal skin turgor. Extremities: No lower extremity edema. No calf ttp Neuro: Oriented X 3. No motor deficit. No sensory deficit. Cn2-12 intact Course Course Course Narrative: This is an RME: Additional HPI, ROS, PE not included below will be deferred to primary provider. This is a 23-with a history of bipolar disorder and PTSD presenting to the ER with complaints of no longer wanting to live. She has plans of using a knife to end her life. +marijuana use, no other drug use. No etoh use. Plan: Labs, UA, care team. Reevaluation(s) Reevaluation #1: Physician observation started at 458pm. Patient placed in physician observation because the patient needed more time for CARE team to assess the need for psych admission. At the time observation was started the patient's vitals were stable, patient is alert and oriented, Neuro: nonfocal, CV RRR, Lungs clear Reevaluation #2: Physician observation continued. VS stable, no acute events overnight, inpatient bed search per CARE team. 752am 06/04/23 Medical Decision Making Medical Decision Making [facility] Narrative: 23 yo female with bipolar, depression, chronic PTSD here with c/o depression and SI she has no plan she has no medical complaints at this time will obtain basic labs and CARE team consult Differential Diagnosis Differential Diagnoses: The differential diagnosis associated with the presentation includes depression, non compliance Admission/Observation Consideration of admission/observation: Escalation of care including admission/observation considered observe until seen by CARE team Consult Healthcare Provider Management of the patient was discussed with: Behavioral Health Provider Lab Data [facility] Lab Attestation statement: I reviewed the patient's lab results. 06/03/23 16:05 06/03/23 16:05 Labs: Lab Results 06/03/23 06/03/23 Range/Units 16:05 16:26 WBC 7.5 (4.8-10.8) X10*3/uL RBC 4.64 (4.20-5.50) X10*6/uL Hgb 14.1 (12.0-16.0) g/dl Hct 41.9 (37.0-47.0) % MCV 90.3 (80.0-98.0) fL MCH 30.4 (27.0-33.0) pg MCHC 33.7 (31.0-35.0) g/dl RDW 12.4 (11.0-16.0) % Plt Count 271 (160-400) X10*3/uL MPV 8.9 L (9.4-12.3) fL Immature Gran % (Auto) 0.3 (0.0-0.4) % Neut % (Auto) 69.1 (45-73) % Lymph % (Auto) 26.2 (20-40) % Osborne % (Auto) 3.9 (2-11) % Eos % (Auto) 0.1 (0-4) % Baso % (Auto) 0.4 (0-2) % Lymph # (Auto) 2.0 (1.2-4.9) X10*3/uL Osborne # (Auto) 0.3 (0.1-1.2) X10*3/uL Eos # (Auto) 0.0 (0.0-0.4) X10*3/uL Baso # (Auto) 0.0 (0.0-0.2) X10*3/uL Abs Immat Gran (auto) 0.02 (0.00-0.03) X10*3/uL Absolute Neuts (auto) 5.2 (2.0-8.3) x10*3/uL Absolute Nucleated RBC 0.000 (0.0-0.012) X10*3/uL Nucleated RBC % (auto) 0.0 (0.0-0.2) /100WBC Sodium 140 (135-145) mmol/L Potassium 3.9 (3.3-5.1) mmol/L Chloride 105 (96-108) mmol/L Carbon Dioxide 27 (22-29) mmol/L Anion Gap 12 (12-20) BUN 9 (9-16) mg/dL Creatinine 0.67 (0.5-1.4) mg/dL Estim Creat Clear Calc 122.2 Estimated GFR > 60 Random Glucose 83 (60-115) mg/dL Calcium 10.1 D (8.4-10.2) mg/dL Total Bilirubin 0.6 (0.0-1.0) mg/dL Direct Bilirubin 0.2 (0.0-0.5) mg/dL AST 16 (5-31) U/L ALT 11 (0-31) U/L Alkaline Phosphatase 65 (39-117) U/L Total Protein 7.6 (6.5-8.0) g/dL Albumin 4.3 (3.5-5.0) g/dL Beta HCG, Quant < 2 mIU/mL Urine Color Yellow Urine Appearance Hazy Urine pH 6.0 (5.0-9.0) Ur Specific Sanford 1.010 (1.005-1.025) Urine Protein Negative (Neg-Trace) mg/dL Urine Glucose (UA) Negative (Negative) mg/dL Urine Ketones Negative (Negative) mg/dL Urine Blood Negative (Negative) Urine Nitrite Negative (Negative) Ur Leukocyte Esterase Trace H (Negative) Urine RBC 0-2 (0-2) /HPF Urine WBC 0-5 (0-5) /HPF Ur Squamous Epith Cells >20 (0-2) /HPF Urine Bacteria 4+ (None Seen) Hyaline Casts 0-2 (0-2) /LPF Urine Test NEGATIVE (NEGATIVE) Urine Opiates Screen Not Detected (Not Detect) Urine Fentanyl Screen Not Detected (Not Detect) Ur Barbiturates Screen Not Detected (Not Detect) Ur Phencyclidine Scrn Not Detected (Not Detect) Ur Amphetamines Screen Not Detected (Not Detect) U Benzodiazepines Scrn Not Detected (Not Detect) Urine Cocaine Screen Not Detected (Not Detect) U Marijuana (THC) Screen POSITIVE H (Not Detect) Ethyl Alcohol < 10 mg/dL External Record Review External record reviewed: Inpatient record Social Determinants Patient?s care significantly limited by Social Determinants of Health including: Problems related to primary support group Discharge Plan Discharge Clinical Impression: Depression Patient Disposition: Still a Patient Prescriptions: No Action Abilify Maintena 400 mg suspension,extended rel syring 400 mg IM QMONTH Patient Comments: Patient reports her last injection was on 05/13/23 Interventions: Gardners-Suicide Risk Severity Scale Last Done: 06/04/23 06:41
[2023-06-03 16:09] LABS: MANUAL DIFF FLAG NO
[2023-06-03 16:10] LABS: Basophils Percent Auto 0.4 % (0-2); Eosinophils Percent Auto 0.1 % (0-4); Hematocrit 41.9 % (37.0-47.0); Hemoglobin 14.1 g/dl (12.0-16.0); Imm Gran Abs Auto 0.02 X10*3/uL (0.00-0.03); Imm Gran Pct Auto 0.3 % (0.0-0.4); Lymphocytes Percent Auto 26.2 % (20-40); Mean Corpuscular HGB Conc 33.7 g/dl (31.0-35.0); Mean Corpuscular Hemoglobin 30.4 pg (27.0-33.0); Mean Corpuscular Volume 90.3 fL (80.0-98.0); Mean Platelet Volume 8.9 fL (9.4-12.3); Monocytes Absolute Auto 0.3 X10*3/uL (0.1-1.2); Monocytes Percent Auto 3.9 % (2-11); Neutrophils Absolute Auto 5.2 x10*3/uL (2.0-8.3); Neutrophils Percent Auto 69.1 % (45-73); Platelet Count 271 X10*3/uL (160-400); Red Blood Count 4.64 X10*6/uL (4.20-5.50); Red Cell Distribution Width 12.4 % (11.0-16.0); White Blood Count 7.5 X10*3/uL (4.8-10.8)
--- NOTE | 2023-06-03 16:28 | PC.NURSE ---
Lauren self presented to the emergency dept with SI with a plan to use a knife. Lauren reports she has not been taking any of her medications for awhile although she has been receiving her injection of Abilify Maintaina, which she reports she last received on 05/13/23. Lauren was cooperative with changing her clothes and labs are pending. She is currently in her room resting. Lauren maintains she will be safe while in the hospital.
[2023-06-03 16:31] VITALS: RESP 18
[2023-06-03 16:33] LABS: Alanine Aminotransferase 11 U/L (0-31); Albumin Level 4.3 g/dL (3.5-5.0); Alkaline Phosphatase 65 U/L (39-117); Anion Gap 12 (12-20); Aspartate Amino Transferase 16 U/L (5-31); Bilirubin Direct 0.2 mg/dL (0.0-0.5); Bilirubin Total 0.6 mg/dL (0.0-1.0); Blood Urea Nitrogen 9 mg/dL (9-16); Calcium 10.1 mg/dL (8.4-10.2); Carbon Dioxide 27 mmol/L (22-29); Chloride 105 mmol/L (96-108); Creatinine Clr Calc Pharmacy 122.2; Estimated Glomerular Filt Rate > 60; Ethanol < 10 mg/dL; Glucose Random 83 mg/dL (60-115); HCG Quantitative < 2 mIU/mL; Potassium 3.9 mmol/L (3.3-5.1); Sodium 140 mmol/L (135-145); Total Protein 7.6 g/dL (6.5-8.0)
[2023-06-03 16:41] LABS: Appearance Urine Hazy; Color Urine Yellow; Glucose Urine UA Negative (Negative); Leukocyte Esterase Urine Trace (Negative); Nitrite Urine Negative (Negative); UMIC TRIGGER UACC YES; Urine Blood Negative (Negative); Urine Ketones Negative (Negative); Urine Protein Negative (Neg-Trace)
[2023-06-03 16:42] LABS: UPreg QC Valid YES; Urine Pregnancy NEGATIVE (NEGATIVE)
[2023-06-03 16:44] LABS: Amphetamine Screen Urine Not Detected (Not Detect); Barbiturates, Urine Not Detected (Not Detect); Benzodiazepines Screen Urine Not Detected (Not Detect); Cannabinoid Screen Urine POSITIVE (Not Detect); Cocaine Screen Urine Not Detected (Not Detect); Fentanyl, urine Not Detected (Not Detect); Opiate Screen Urine Not Detected (Not Detect); Phencyclidine Screen Urine Not Detected (Not Detect)
[2023-06-03 16:50] LABS: Bacteria Urine 4+ (None Seen); Hyaline Casts Urine 0-2 /LPF (0-2); RBC Urine 0-2 /HPF (0-2); Squamous Epithelial Cell Urine >20 /HPF (0-2); UACC Culture Trigger YES
[2023-06-03 17:01] LABS: WBC Urine 0-5 /HPF (0-5)
[2023-06-04 06:56] VITALS: BP 95/62; PULSE 72; RESP 16; TEMP 36.3; O2SAT 99
[2023-06-04 08:21] LABS: COVID-19 Test Negative (Negative); IDNOW Serial# 152EDE1D
--- NOTE | 2023-06-04 08:29 | ECG_ITS ---
Test Reason : check prolonged qt Blood Pressure : / mmHG Vent. Rate : 082 BPM Atrial Rate : 082 BPM P-R Int : 178 ms QRS Dur : 076 ms QT Int : 374 ms P-R-T Axes : 077 077 070 degrees QTc Int : 436 ms Normal sinus rhythm Normal ECG When compared with ECG of 24-JAN-2023 09:31, No significant change was found Referred By: Dilia Reeves Electronically Signed By:Jun Chamberlain
--- NOTE | 2023-06-04 09:00 | PC.NURSE ---
PT IS SLEEPING RESP EVEN AND UNLABORED. PT REFUSED BREAKFAST. WILL CONTINUE TO MONITOR.
--- NOTE | 2023-06-04 11:22 | PHA.MEDREC ---
Pharmacy Consult ? Medication Reconciliation Pharmacy has REVIEWED the medication reconciliation DONE BY RN.
[2023-06-04 11:57] VITALS: BP 102/55; PULSE 99; RESP 16; TEMP 37.4; O2SAT 99
--- NOTE | 2023-06-04 12:37 | PC.NURSE ---
RN TO RN REPORT GIVEN TO ALNG. PT AWARE OF PLAN OF CARE FOR TRANSFER TO [facility].
--- NOTE | 2023-06-04 12:53 | PC.NURSE ---
PT A/O X 4 AWAKE. NO SOB/NIVIA NOTED SPEAKS IN FULL SENTENCES. DENIES ANY PAIN/DISC. DENIES ANY SI/HI. PT HAD REFUSED BREAKFAST EARLIER. PT ENCOURAGE TO EAT LUNCH/FLUIDS.
--- NOTE | 2023-06-04 13:47 | PC.NURSE ---
PT REFUSED LUNCH. FLUIDS ENCOURAGED.
[2023-06-04 15:30] VITALS: BP 108/57; PULSE 99; RESP 18; TEMP 36.2; O2SAT 98
--- NOTE | 2023-06-04 15:48 | PC.NURSE ---
Lauren gave verbal permission to speak to CHD worker Libia Clements at this time.
[2023-06-04 16:15] VITALS: BMI 22.6
--- NOTE | 2023-06-04 16:16 | PC.ADMIT ---
Lauren arrived to the unit at 1415 on a Conditional Voluntary, sharps check done. Lauren appeared sad, she reports endorsing depression rated it 8 out of 10. She reports she has not been taking her medications for Couple of months, I feel like I'm loosing my mind, I messed up a lot. She reports I feel nothing, I'm sad, I'm not myself, she reports she has not showered In a while, I was able to express myself through clothing and I lost my apartment and all my clothes. She reports I just want to wake up and be in the process of having my own apartment. When asked if she had any thoughts of wanting to hurt self stated No, verbalized to look for staff if thoughts occur. Per assessment Lauren was brought to the ED by her mold loft worker due to increase depression and SI with no plan that per Lauren was Unmanageable for several moths. She reported feeling hopeless and helpless, has history of self injury behaviors.
[2023-06-04 20:05] VITALS: BP 123/71; PULSE 92; RESP 16; TEMP 36.4; O2SAT 98
[2023-06-05 08:15] VITALS: BP 97/51; PULSE 83; TEMP 36.3; O2SAT 100
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
[2023-06-05 20:15] VITALS: BP 94/59; PULSE 88; RESP 16; TEMP 36.4; O2SAT 97
[2023-06-05] MEDS: Divalproex Sodium ER 250 MG TAB.ER.24H 750 MG PO (20:36)
[2023-06-05] MEDS: QUEtiapine Fumarate 50 MG TABLET PO (20:37)
[2023-06-06 07:55] VITALS: BP 93/51; PULSE 69; RESP 14; TEMP 36.2; O2SAT 97
--- NOTE | 2023-06-06 16:50 | HO.PSYCHPN ---
Subjective Subjective Date of Service: 06/06/23 Reason For Visit: depression Interim History: Patient reports I feel aviation all source intelligence. She reports she took Seroquel and Depakote last night. No side effects. She agrees to continue titration of Depakote shamika previous dose. She is denying SI. Denies hallucinations. Mostly isolating in her room. Review of Systems Review of Systems Constitutional : No Fever, No Chills ENT/Mouth : No Ear Pain, No Nasal Congestion, No sore throat Eyes: No Eye Pain, No Swelling, No Redness Cardiovascular : No Chest Pain, No SOB Respiratory : No Cough, No Sputum, No Dyspnea Gastrointestinal : No Nausea, No Vomiting, No Diarrhea, No Hematochezia, No Melena Genitourinary : No Dysuria, No Urinary Frequency, No Hematuria Musculoskeletal : No Myalgias Skin : No Skin Lesions, No rash Neuro : No Weakness, No Numbness, No Paresthesias, No Dizziness, No Headache Psych : positive Anxiety, positive Depression, positive SI no HI Heme/Lymph: No Lymphadenopathy Endocrine : No Polyuria, No Polydipsia All other systems reviewed and are negative Mental Status Exam Mental Status Exam Narrative: General appearance: hospital attire Fair hygiene.? Eye contact: poor. Musculoskeletal: Normal muscle strength/tone, Normal gait and station, No abnormal involuntary movements like tremors, EPS or dyskinesia. + psychomotor retardation. Normal posture.??? Manner/behavior: guarded, slowed Speech:? Fluent, with slow rate, low tone and volume. Language: No receptive or expressive language impairment? Mood: depressed. Affect: Blunted and depressed. congruent to mood and without lability? Thought process/associations: Linear with no flight of ideas or loose associations.?? Thought content: PI Hallucinations: No auditory, visual or other hallucinations? Suicidality/self-destructive behavior: none now, yes before admission.? ? Homicidally/violence: none.? Reliability: fair.? ? Judgment: fair.? ? Insight: fair Cognition: Alert and oriented to time, place and person. Attention, concentration and fund of knowledge are normal.? Impulse control and emotional regulation: preserved. Intelligence estimate: average.? Diagnostics Vital Signs (24Hr): Vital Signs - 24 hr 06/05/23 20:15 06/06/23 07:55 Temperature 97.5 F 97.1 F Pulse Rate 88 69 Respiratory Rate 16 14 Blood Pressure 94/59 L 93/51 L Pulse Oximetry 97 97 Oxygen Delivery Method Room Air Room Air BMI result Body Mass Index 22.6 Labs 06/03/23 16:05 06/03/23 16:05 Medications Medications Current Medications Acetaminophen (Acetaminophen 325 Mg Tablet) 650 mg PO Q6H PRN PRN Reason: Headache/Pain Mild Scale (1-3) Al Hydroxide/Mg Hydroxide (Magnesium Hydrox/Alum Hydrox 30 Ml Oral.Susp) 30 ml PO Q6H PRN PRN Reason: Heartburn/Nausea Divalproex Sodium (Divalproex Sodium Er 500 Mg Tab.Er.24h) 1,500 mg PO BEDTIME GAVIOTA Hydroxyzine HCl (Hydroxyzine Hcl 25 Mg Tablet) 25 mg PO Q6H PRN PRN Reason: Anxiety Magnesium Hydroxide (Milk Of Magnesia 30 Ml Oral.Susp) 30 ml PO DAILY PRN PRN Reason: Constipation Nicotine Polacrilex (Nicotine Polacrilex 2 Mg Gum) 4 mg BUCCAL Q2H PRN PRN Reason: Nicotine Cravings Quetiapine Fumarate (Quetiapine Fumarate 100 Mg Tablet) 100 mg PO BEDTIME GAVIOTA Trazodone HCl (Trazodone Hcl 50 Mg Tablet) 50 mg PO BEDTIME MRX1 PRN PRN Reason: Insomnia Allergies Allergies Allergy/AdvReac Type Severity Reaction Status Date / Time insect venom [MOSQUITO] Allergy Unknown UNKNOWN Verified 06/03/23 15:50 paliperidone [From INVEGA] Allergy Unknown DYSTONIC Verified 06/03/23 15:50 REACTION haloperidol [HALOPERIDOL] AdvReac Intermediate Dystonic Verified 06/03/23 15:50 reaction Assessment & Plan Assessment & Plan (1) Chronic post-traumatic stress disorder (PTSD): Status: Acute Code(s): F43.12 - Post-traumatic stress disorder, chronic (2) Bipolar 1 disorder, depressed, severe: Status: Acute Code(s): F31.4 - Bipolar disorder, current episode depressed, severe, without psychotic features Plan - Admit to inpatient psychiatry - CV - Collateral information from family and providers. - Milieu treatment and group therapy. - Medications: Restart Depakote ER 750 mg HS. Titrate as tolerated. Restart Seroquel 100 mg HS. Consider restarting Trilafon (was on 10 mg TID upon DC from [facility] in January 2023) - Social work evaluation. - Disposition planning. 06/06: Continue current management and treatment plan. Reason for continued inpatient stay Substantial Risk for: harm to self, inability to function and rapid decompensation Time Spent With Patient Time: Total time managing care of this patient today ____ minutes.
[2023-06-06 20:00] VITALS: BP 98/74; PULSE 103; RESP 16; TEMP 36; O2SAT 98
[2023-06-06] MEDS: Divalproex Sodium ER 500 MG TAB.ER.24H 1500 MG PO (20:54)
[2023-06-06] MEDS: QUEtiapine Fumarate 100 MG TABLET PO (20:55)
[2023-06-07 07:20] VITALS: BP 126/80; PULSE 104; RESP 18; TEMP 36.8; O2SAT 100
--- NOTE | 2023-06-07 08:55 | HO.PSYCHPN ---
Subjective Subjective Date of Service: 06/07/23 Reason For Visit: depression Subjective Notes: Conditional Voluntary Interim History: Reviewed with . Keeping to self. napping during the day. Pt stated, I'm feeling okay today. My anxiety is low. I feel like the meds are starting to help . denies SI/HI/VH/AH. Medication Compliance: Yes Side effects from medications: No Attending Groups: Intermittent Review of Systems Constitutional: Reports as per HPI Eyes: Reports as per HPI Reports as per HPI Cardiovascular: Reports as per HPI Respiratory: Reports as per HPI Gastrointestinal: Reports as per HPI Genitourinary: Reports as per HPI Musculoskeletal: Reports as per HPI Skin/Breast: Reports as per HPI Reports as per HPI Psychiatric: Reports as per HPI Endocrine: Reports as per HPI Hematologic/Lymphatic: Reports as per HPI Allergic/Immunologic: Reports as per HPI Mental Status Exam Mental Status Exam Narrative: Pt is alert and oriented; behavior is cooperative and calm; dressed in casual attire; mood is described as okay ; eye contact appropriate; Speech is normal rate, volume and prosody and not pressured; thought process is organized; Thought content is on tx; denies SI/HI/AH/VH. Diagnostics Vital Signs (24Hr): Vital Signs - 24 hr 06/06/23 20:00 06/07/23 07:20 Temperature 96.8 F 98.2 F Pulse Rate 103 H 104 H Respiratory Rate 16 18 Blood Pressure 98/74 126/80 Pulse Oximetry 98 100 Oxygen Delivery Method Room Air Room Air BMI result Body Mass Index 22.6 Labs 06/03/23 16:05 06/03/23 16:05 Medications Medications Current Medications Acetaminophen (Acetaminophen 325 Mg Tablet) 650 mg PO Q6H PRN PRN Reason: Headache/Pain Mild Scale (1-3) Al Hydroxide/Mg Hydroxide (Magnesium Hydrox/Alum Hydrox 30 Ml Oral.Susp) 30 ml PO Q6H PRN PRN Reason: Heartburn/Nausea Divalproex Sodium (Divalproex Sodium Er 500 Mg Tab.Er.24h) 1,500 mg PO BEDTIME [place] Last Admin: 06/06/23 20:54 Dose: 1,500 mg Hydroxyzine HCl (Hydroxyzine Hcl 25 Mg Tablet) 25 mg PO Q6H PRN PRN Reason: Anxiety Magnesium Hydroxide (Milk Of Magnesia 30 Ml Oral.Susp) 30 ml PO DAILY PRN PRN Reason: Constipation Nicotine Polacrilex (Nicotine Polacrilex 2 Mg Gum) 4 mg BUCCAL Q2H PRN PRN Reason: Nicotine Cravings Quetiapine Fumarate (Quetiapine Fumarate 100 Mg Tablet) 100 mg PO BEDTIME [place] Last Admin: 06/06/23 20:55 Dose: 100 mg Trazodone HCl (Trazodone Hcl 50 Mg Tablet) 50 mg PO BEDTIME MRX1 PRN PRN Reason: Insomnia Allergies Allergies Allergy/AdvReac Type Severity Reaction Status Date / Time insect venom [MOSQUITO] Allergy Unknown UNKNOWN Verified 06/03/23 15:50 paliperidone [From INVEGA] Allergy Unknown DYSTONIC Verified 06/03/23 15:50 REACTION haloperidol [HALOPERIDOL] AdvReac Intermediate Dystonic Verified 06/03/23 15:50 reaction Assessment & Plan Assessment & Plan (1) Chronic post-traumatic stress disorder (PTSD): Status: Acute Code(s): F43.12 - Post-traumatic stress disorder, chronic (2) Bipolar 1 disorder, depressed, severe: Status: Acute Code(s): F31.4 - Bipolar disorder, current episode depressed, severe, without psychotic features Plan - Admit to inpatient psychiatry - CV - Collateral information from family and providers. - Milieu treatment and group therapy. - Medications: Restart Depakote ER 750 mg HS. Titrate as tolerated. Restart Seroquel 100 mg HS. Consider restarting Trilafon (was on 10 mg TID upon DC from M3 in January 2023) - Social work evaluation. - Disposition planning. 06/06: Continue current management and treatment plan. 06/07: Keeping to self. napping during the day. Pt stated, I'm feeling okay today. My anxiety is low. I feel like the meds are starting to help . denies SI/HI/VH/AH. Continue current tx plan. Reason for continued inpatient stay Substantial Risk for: med/psych decompensation Time Spent With Patient Time: Total time managing care of this patient today ____ minutes.
[2023-06-07 20:08] VITALS: BP 106/69; PULSE 103; RESP 18; TEMP 37.1; O2SAT 98
[2023-06-07] MEDS: QUEtiapine Fumarate 100 MG TABLET PO (21:01)
[2023-06-07] MEDS: hydrOXYzine HCL 25 MG TABLET PO (21:01)
[2023-06-07] MEDS: Divalproex Sodium ER 500 MG TAB.ER.24H 1500 MG PO (21:01)
[2023-06-08 07:40] VITALS: BP 89/54; PULSE 77; RESP 16; TEMP 36.4; O2SAT 98
[2023-06-08] MEDS: Divalproex Sodium ER 500 MG TAB.ER.24H 1500 MG PO (20:41)
[2023-06-08] MEDS: QUEtiapine Fumarate 100 MG TABLET PO (20:42)
[2023-06-08 20:45] VITALS: BP 104/68; PULSE 106; RESP 16; TEMP 36.4; O2SAT 99
--- NOTE | 2023-06-08 20:58 | HO.PSYCHPN ---
Subjective Subjective Date of Service: 06/08/23 Reason For Visit: depression Subjective Notes: Conditional Voluntary Interim History: Pt reports feeling better. She denies SI/HI. She reports she wanted to retart medications but now that she is on them would like to be discharged soon. No behavioral concerns. taking medications as prescribed. Review of Systems Review of Systems Constitutional : No Fever, No Chills ENT/Mouth : No Ear Pain, No Nasal Congestion, No sore throat Eyes: No Eye Pain, No Swelling, No Redness Cardiovascular : No Chest Pain, No SOB Respiratory : No Cough, No Sputum, No Dyspnea Gastrointestinal : No Nausea, No Vomiting, No Diarrhea, No Hematochezia, No Melena Genitourinary : No Dysuria, No Urinary Frequency, No Hematuria Musculoskeletal : No Myalgias Skin : No Skin Lesions, No rash Neuro : No Weakness, No Numbness, No Paresthesias, No Dizziness, No Headache Psych : positive Anxiety, positive Depression, positive SI no HI Heme/Lymph: No Lymphadenopathy Endocrine : No Polyuria, No Polydipsia All other systems reviewed and are negative Constitutional: Reports as per HPI Eyes: Reports as per HPI Reports as per HPI Cardiovascular: Reports as per HPI Respiratory: Reports as per HPI Gastrointestinal: Reports as per HPI Musculoskeletal: Reports as per HPI Skin/Breast: Reports as per HPI Reports as per HPI Psychiatric: Reports as per HPI Endocrine: Reports as per HPI Hematologic/Lymphatic: Reports as per HPI Allergic/Immunologic: Reports as per HPI Mental Status Exam Mental Status Exam Narrative: Pt is alert and oriented; behavior is cooperative and calm; dressed in casual attire; mood is described as fine ; eye contact appropriate; Speech is normal rate, volume and prosody and not pressured; thought process is organized; Thought content is on tx; otherwise pertinent to relevant topics and without any delusional content, paranoid ideations or grandiosity; denies SI/HI/VH/AH. Diagnostics Vital Signs (24Hr): Vital Signs - 24 hr 06/08/23 07:40 Temperature 97.5 F Pulse Rate 77 Respiratory Rate 16 Blood Pressure 89/54 L Pulse Oximetry 98 Oxygen Delivery Method Room Air BMI result Body Mass Index 22.6 Labs 06/03/23 16:05 06/03/23 16:05 Medications Medications Current Medications Acetaminophen (Acetaminophen 325 Mg Tablet) 650 mg PO Q6H PRN PRN Reason: Headache/Pain Mild Scale (1-3) Al Hydroxide/Mg Hydroxide (Magnesium Hydrox/Alum Hydrox 30 Ml Oral.Susp) 30 ml PO Q6H PRN PRN Reason: Heartburn/Nausea Divalproex Sodium (Divalproex Sodium Er 500 Mg Tab.Er.24h) 1,500 mg PO BEDTIME [facility] Last Admin: 06/08/23 20:41 Dose: 1,500 mg Hydroxyzine HCl (Hydroxyzine Hcl 25 Mg Tablet) 25 mg PO Q6H PRN PRN Reason: Anxiety Last Admin: 06/07/23 21:01 Dose: 25 mg Magnesium Hydroxide (Milk Of Magnesia 30 Ml Oral.Susp) 30 ml PO DAILY PRN PRN Reason: Constipation Nicotine Polacrilex (Nicotine Polacrilex 2 Mg Gum) 4 mg BUCCAL Q2H PRN PRN Reason: Nicotine Cravings Quetiapine Fumarate (Quetiapine Fumarate 100 Mg Tablet) 100 mg PO BEDTIME [place] Last Admin: 06/08/23 20:42 Dose: 100 mg Trazodone HCl (Trazodone Hcl 50 Mg Tablet) 50 mg PO BEDTIME MRX1 PRN PRN Reason: Insomnia Allergies Allergies Allergy/AdvReac Type Severity Reaction Status Date / Time insect venom [MOSQUITO] Allergy Unknown UNKNOWN Verified 06/03/23 15:50 paliperidone [From INVEGA] Allergy Unknown DYSTONIC Verified 06/03/23 15:50 REACTION haloperidol [HALOPERIDOL] AdvReac Intermediate Dystonic Verified 06/03/23 15:50 reaction Assessment & Plan Assessment & Plan (1) Chronic post-traumatic stress disorder (PTSD): Status: Acute Code(s): F43.12 - Post-traumatic stress disorder, chronic (2) Bipolar 1 disorder, depressed, severe: Status: Acute Code(s): F31.4 - Bipolar disorder, current episode depressed, severe, without psychotic features Plan - Admit to inpatient psychiatry - CV - Collateral information from family and providers. - Milieu treatment and group therapy. - Medications: Restart Depakote ER 750 mg HS. Titrate as tolerated. Restart Seroquel 100 mg HS. Consider restarting Trilafon (was on 10 mg TID upon DC from M3 in January 2023) - Social work evaluation. - Disposition planning. 06/06: Continue current management and treatment plan. 06/07: Keeping to self. napping during the day. Pt stated, I'm feeling okay today. My anxiety is low. I feel like the meds are starting to help . denies SI/HI/VH/AH. Continue current tx plan. 06/08 continue tx. Reason for continued inpatient stay Substantial Risk for: inability to function Time Spent With Patient Time: Total time managing care of this patient today ____ minutes.
[2023-06-09 07:45] VITALS: BP 91/53; PULSE 71; RESP 18; TEMP 36.5; O2SAT 99
--- NOTE | 2023-06-09 10:03 | HO.PSYCHPN ---
Subjective Subjective Date of Service: 06/09/23 Reason For Visit: depression Subjective Notes: 3 Day Interim History: Reviewed with . Keeping to self. reports sleeping well. Pt reports feeling fine today; pt stated, I was depressed when I first came in but now I'm just bored. The meds are working fine . denies SI/HI/VH/AH. 3 day up on Wednesday. Valporic acid to be drawn today. Medication Compliance: Yes Side effects from medications: No Attending Groups: Intermittent Review of Systems Constitutional: Reports as per HPI Eyes: Reports as per HPI Reports as per HPI Cardiovascular: Reports as per HPI Respiratory: Reports as per HPI Gastrointestinal: Reports as per HPI Genitourinary: Reports as per HPI Musculoskeletal: Reports as per HPI Skin/Breast: Reports as per HPI Reports as per HPI Psychiatric: Reports as per HPI Endocrine: Reports as per HPI Hematologic/Lymphatic: Reports as per HPI Allergic/Immunologic: Reports as per HPI Mental Status Exam Mental Status Exam Narrative: Pt is alert and oriented; behavior is cooperative and calm; dressed in casual attire; mood is described as fine ; eye contact appropriate; Speech is normal rate, volume and prosody and not pressured; thought process is organized; Thought content is on tx; otherwise pertinent to relevant topics and without any delusional content, paranoid ideations or grandiosity; denies SI/HI/VH/AH. Diagnostics Vital Signs (24Hr): Vital Signs - 24 hr 06/08/23 20:45 06/09/23 07:45 Temperature 97.6 F 97.7 F Pulse Rate 106 H 71 Respiratory Rate 16 18 Blood Pressure 104/68 91/53 L Pulse Oximetry 99 99 Oxygen Delivery Method Room Air Room Air BMI result Body Mass Index 22.6 Labs 06/03/23 16:05 06/03/23 16:05 Medications Medications Current Medications Acetaminophen (Acetaminophen 325 Mg Tablet) 650 mg PO Q6H PRN PRN Reason: Headache/Pain Mild Scale (1-3) Al Hydroxide/Mg Hydroxide (Magnesium Hydrox/Alum Hydrox 30 Ml Oral.Susp) 30 ml PO Q6H PRN PRN Reason: Heartburn/Nausea Divalproex Sodium (Divalproex Sodium Er 500 Mg Tab.Er.24h) 1,500 mg PO BEDTIME [place] Last Admin: 06/08/23 20:41 Dose: 1,500 mg Hydroxyzine HCl (Hydroxyzine Hcl 25 Mg Tablet) 25 mg PO Q6H PRN PRN Reason: Anxiety Last Admin: 06/07/23 21:01 Dose: 25 mg Magnesium Hydroxide (Milk Of Magnesia 30 Ml Oral.Susp) 30 ml PO DAILY PRN PRN Reason: Constipation Nicotine Polacrilex (Nicotine Polacrilex 2 Mg Gum) 4 mg BUCCAL Q2H PRN PRN Reason: Nicotine Cravings Quetiapine Fumarate (Quetiapine Fumarate 100 Mg Tablet) 100 mg PO BEDTIME [place] Last Admin: 06/08/23 20:42 Dose: 100 mg Trazodone HCl (Trazodone Hcl 50 Mg Tablet) 50 mg PO BEDTIME MRX1 PRN PRN Reason: Insomnia Allergies Allergies Allergy/AdvReac Type Severity Reaction Status Date / Time insect venom [MOSQUITO] Allergy Unknown UNKNOWN Verified 06/03/23 15:50 paliperidone [From INVEGA] Allergy Unknown DYSTONIC Verified 06/03/23 15:50 REACTION haloperidol [HALOPERIDOL] AdvReac Intermediate Dystonic Verified 06/03/23 15:50 reaction Assessment & Plan Assessment & Plan (1) Bipolar 1 disorder, depressed, severe: Status: Acute Code(s): F31.4 - Bipolar disorder, current episode depressed, severe, without psychotic features (2) Chronic post-traumatic stress disorder (PTSD): Status: Acute Code(s): F43.12 - Post-traumatic stress disorder, chronic Plan - Admit to inpatient psychiatry - CV - Collateral information from family and providers. - Milieu treatment and group therapy. - Medications: Restart Depakote ER 750 mg HS. Titrate as tolerated. Restart Seroquel 100 mg HS. Consider restarting Trilafon (was on 10 mg TID upon DC from M3 in January 2023) - Social work evaluation. - Disposition planning. 06/06: Continue current management and treatment plan. 06/07: Keeping to self. napping during the day. Pt stated, I'm feeling okay today. My anxiety is low. I feel like the meds are starting to help . denies SI/HI/VH/AH. Continue current tx plan. 06/09: Keeping to self. reports sleeping well. Pt reports feeling fine today; pt stated, I was depressed when I first came in but now I'm just bored. The meds are working fine . denies SI/HI/VH/AH. 3 day up on Wednesday. Valporic acid to be drawn today. Patient educated on: diagnosis, medication risk/benefits and therapeutic strategies Informed Consent: understands Reason for continued inpatient stay Substantial Risk for: med/psych decompensation Time Spent With Patient Time: Total time managing care of this patient today _30___ minutes.
[2023-06-09 17:18] LABS: Ammonia 24 umol/L (13-55)
[2023-06-09 17:25] LABS: Valproate 98.3 mcg/mL (50.0-100.0)
[2023-06-09 17:26] LABS: Alanine Aminotransferase 7 U/L (0-31); Albumin Level 4.2 g/dL (3.5-5.0); Alkaline Phosphatase 62 U/L (39-117); Aspartate Amino Transferase 13 U/L (5-31); Bilirubin Direct < 0.2 mg/dL (0.0-0.5); Bilirubin Total 0.2 mg/dL (0.0-1.0); Total Protein 7.4 g/dL (6.5-8.0)
[2023-06-09 20:00] VITALS: BP 100/67; PULSE 107; RESP 20; TEMP 36.6; O2SAT 99
[2023-06-09] MEDS: QUEtiapine Fumarate 100 MG TABLET PO (21:37)
[2023-06-09] MEDS: Divalproex Sodium ER 500 MG TAB.ER.24H 1500 MG PO (21:38)
[2023-06-10 07:15] VITALS: BP 95/54; PULSE 73; RESP 16; TEMP 36.6; O2SAT 98
--- NOTE | 2023-06-10 10:15 | HO.PSYCHPN ---
Subjective Subjective Date of Service: 06/10/23 Reason For Visit: depression Subjective Notes: 3 Day Interim History: Reviewed with . Keeping to self. napping during the day. Pt reports feeling okay today; pt stated, I'm going to keep taking my meds. I'm going to have a visiting nurse come see me too . Pt plans on following up with outpatient providers. denies SI/HI/VH/AH. Valporic acid 98.3 on 06/09/23 Medication Compliance: Yes Side effects from medications: No Attending Groups: No Review of Systems Constitutional: Reports as per HPI Eyes: Reports as per HPI Reports as per HPI Cardiovascular: Reports as per HPI Respiratory: Reports as per HPI Gastrointestinal: Reports as per HPI Genitourinary: Reports as per HPI Musculoskeletal: Reports as per HPI Skin/Breast: Reports as per HPI Reports as per HPI Psychiatric: Reports as per HPI Endocrine: Reports as per HPI Hematologic/Lymphatic: Reports as per HPI Allergic/Immunologic: Reports as per HPI Mental Status Exam Mental Status Exam Narrative: Pt is alert and oriented; behavior is cooperative and calm; dressed in casual attire; mood is described as fine ; eye contact appropriate; Speech is normal rate, volume and prosody and not pressured; thought process is organized; Thought content is on tx; otherwise pertinent to relevant topics and without any delusional content, paranoid ideations or grandiosity; denies SI/HI/VH/AH. Diagnostics Vital Signs (24Hr): Vital Signs - 24 hr 06/09/23 20:00 06/10/23 07:15 Temperature 97.9 F 97.8 F Pulse Rate 107 H 73 Respiratory Rate 20 16 Blood Pressure 100/67 95/54 L Pulse Oximetry 99 98 Oxygen Delivery Method Room Air Room Air BMI result Body Mass Index 22.6 Labs 06/03/23 16:05 06/03/23 16:05 Labs: Laboratory Results - last 48 hr 06/09/23 16:58 Total Bilirubin 0.2 Direct Bilirubin < 0.2 AST 13 ALT 7 Alkaline Phosphatase 62 Ammonia 24 Total Protein 7.4 Albumin 4.2 Valproic Acid 98.3 Medications Medications Current Medications Acetaminophen (Acetaminophen 325 Mg Tablet) 650 mg PO Q6H PRN PRN Reason: Headache/Pain Mild Scale (1-3) Al Hydroxide/Mg Hydroxide (Magnesium Hydrox/Alum Hydrox 30 Ml Oral.Susp) 30 ml PO Q6H PRN PRN Reason: Heartburn/Nausea Divalproex Sodium (Divalproex Sodium Er 500 Mg Tab.Er.24h) 1,500 mg PO BEDTIME [facility] Last Admin: 06/09/23 21:38 Dose: 1,500 mg Hydroxyzine HCl (Hydroxyzine Hcl 25 Mg Tablet) 25 mg PO Q6H PRN PRN Reason: Anxiety Last Admin: 06/07/23 21:01 Dose: 25 mg Magnesium Hydroxide (Milk Of Magnesia 30 Ml Oral.Susp) 30 ml PO DAILY PRN PRN Reason: Constipation Nicotine Polacrilex (Nicotine Polacrilex 2 Mg Gum) 4 mg BUCCAL Q2H PRN PRN Reason: Nicotine Cravings Quetiapine Fumarate (Quetiapine Fumarate 100 Mg Tablet) 100 mg PO BEDTIME [place] Last Admin: 06/09/23 21:37 Dose: 100 mg Trazodone HCl (Trazodone Hcl 50 Mg Tablet) 50 mg PO BEDTIME MRX1 PRN PRN Reason: Insomnia Allergies Allergies Allergy/AdvReac Type Severity Reaction Status Date / Time insect venom [MOSQUITO] Allergy Unknown UNKNOWN Verified 06/03/23 15:50 paliperidone [From INVEGA] Allergy Unknown DYSTONIC Verified 06/03/23 15:50 REACTION haloperidol [HALOPERIDOL] AdvReac Intermediate Dystonic Verified 06/03/23 15:50 reaction Assessment & Plan Assessment & Plan (1) Bipolar 1 disorder, depressed, severe: Status: Acute Code(s): F31.4 - Bipolar disorder, current episode depressed, severe, without psychotic features (2) Chronic post-traumatic stress disorder (PTSD): Status: Acute Code(s): F43.12 - Post-traumatic stress disorder, chronic Plan - Admit to inpatient psychiatry - CV - Collateral information from family and providers. - Milieu treatment and group therapy. - Medications: Restart Depakote ER 750 mg HS. Titrate as tolerated. Restart Seroquel 100 mg HS. Consider restarting Trilafon (was on 10 mg TID upon DC from M3 in January 2023) - Social work evaluation. - Disposition planning. 06/06: Continue current management and treatment plan. 06/07: Keeping to self. napping during the day. Pt stated, I'm feeling okay today. My anxiety is low. I feel like the meds are starting to help . denies SI/HI/VH/AH. Continue current tx plan. 06/08 continue tx. 06/09: Keeping to self. reports sleeping well. Pt reports feeling fine today; pt stated, I was depressed when I first came in but now I'm just bored. The meds are working fine . denies SI/HI/VH/AH. 3 day up on Wednesday. Valporic acid to be drawn today. 06/10: Keeping to self. napping during the day. Pt reports feeling okay today; pt stated, I'm going to keep taking my meds. I'm going to have a visiting nurse come see me too . Pt plans on following up with outpatient providers. denies SI/HI/VH/AH. Valporic acid 98.3 on 06/09/23. Pt to discharge tomorrow on 3 day. Patient educated on: diagnosis, medication risk/benefits and therapeutic strategies Informed Consent: understands Reason for continued inpatient stay Substantial Risk for: stable for discharge Time Spent With Patient Time: Total time managing care of this patient today _20___ minutes.
[2023-06-10 17:19] VITALS: BMI 23.6
[2023-06-10 19:55] VITALS: BP 94/66; PULSE 107; RESP 16; TEMP 36.8; O2SAT 99
[2023-06-10] MEDS: QUEtiapine Fumarate 100 MG TABLET PO (21:14)
[2023-06-10] MEDS: Divalproex Sodium ER 500 MG TAB.ER.24H 1500 MG PO (21:14)
[2023-06-11 08:41] VITALS: BP 96/52; PULSE 78; RESP 16; TEMP 36.4; O2SAT 98
--- NOTE | 2023-06-11 08:58 | PM.PSYDC ---
DS: Providers Provider Date of Service: 06/11/23 Date of admission: 06/04/23 13:39 Date of discharge: 06/11/23 Primary care physician: Moreno Physician Attending physician on admission: Rashaun Ward Attending physician on discharge: Robin Juan Discharging clinician: Fabiana Plascencia DS: Diagnosis Discharge Diagnosis (1) Bipolar 1 disorder, depressed, severe: Status: Acute (2) Chronic post-traumatic stress disorder (PTSD): Status: Acute DS: Medications Discharge Medications Home Medications: Home Medications Medication Instructions Recorded Confirmed aripiprazole 400 mg suspension, 400 mg IM QMONTH 06/03/23 06/03/23 extended rel.intramuscular syringe (Carmenherlinda Rodrigoadrianaugust) Previous Rx's Medication Instructions Recorded divalproex 500 mg tablet,extended 1,500 mg (3 x 500 mg) PO BEDTIME 06/10/23 release 24 hr 30 days #90 tabs quetiapine 100 mg tablet 100 mg PO BEDTIME 30 days #30 tabs 06/10/23 Mental Status Exam Mental Status Exam Narrative: Pt is alert and oriented; behavior is cooperative and calm; dressed in casual attire; mood is described as good ; eye contact appropriate; Speech is normal rate, volume and prosody and not pressured; thought process is organized; Thought content is on discharge; denies SI/HI/VH/AH Data Data Completed and Pending Completed studies during hospitalization [Text1]: 06/09/23 16:58 Total Bilirubin 0.2 Direct Bilirubin < 0.2 AST 13 ALT 7 Alkaline Phosphatase 62 Ammonia 24 Total Protein 7.4 Albumin 4.2 Valproic Acid 98.3 06/03/23 17:05 Urine clean catch - Urine barlow top Urine Culture - Final DS: Summary Hospital Course Hospital Course: Patient is a 23 yo single female who lives with her family in [place]. She has a history of bipolar disorder and has been hospitalized in the past. She is admitted to with increased depression and SI. 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 Patient has not been adherent to her medications for the past at least 2 months. Patient reports increased depression, isolation and disengagement from her family, increased sleep and decreased energy, poor self care, non-adherence to medications, hopelessness, and suicidal ideation. She denied any SI plans and now feels safe on the unit. Per crisis assessment patient has also had paranoid ideation believing she is being followed by a white SUV. On review of EHR, patient has a past history of todd on previous admissions. Patient reports she is interested in restarting Depakote which she found helpful in the past. She was on Trilafon and Seroquel upon discharge during her last hospital stay in January 2023. Patient had an ectopic in April 2023 which may have been the inciting event to stopping her medications. During hospital course, - Admit to inpatient psychiatry - CV - Medications: Restart Depakote ER 750 mg HS. Titrate as tolerated. Restart Seroquel 100 mg HS. Consider restarting Trilafon (was on 10 mg TID upon DC from [facility] in January 2023). Keeping to self. napping during the day. Pt stated, I'm feeling okay today. My anxiety is low. I feel like the meds are starting to help . denies SI/HI/VH/AH. Continue current tx plan. Keeping to self. reports sleeping well. Pt reports feeling fine today; pt stated, I was depressed when I first came in but now I'm just bored. The meds are working fine . denies SI/HI/VH/AH. 3 day up on Wednesday. Valporic acid to be drawn today. Keeping to self. napping during the day. Pt reports feeling okay today; pt stated, I'm going to keep taking my meds. I'm going to have a visiting nurse come see me too . Pt plans on following up with outpatient providers. denies SI/HI/VH/AH. Valporic acid 98.3 on 06/09/23. Time spent discussing smoking cessation with patient: 3 to 10 minutes Status at Discharge Cognitive/behavioral status at discharge: Patient was interviewed prior to discharge and found to be fully oriented and without any SI or HI. Patient has insight and demonstrates good judgment in terms of wanting to pursue treatment. Patient is not in imminent risk of harm to self or others and has a safety plan that includes presenting to the closest ER or calling 911 if feeling unsafe. Functional status at discharge: independent ambulation Overall status at discharge: patient is back to baseline Time Spent with Patient Time attestation: Total time managing care of this patient today _30___ minutes. Time spent: Less than 30 minutes Discharge Plan Discharge Anticipated Discharge Date/Time: 06/11/23 10:00 Patient Disposition: Home, Self-Care Discharge Diagnosis: Bipolar d/o, PTSD Referrals: Dimas Krishnan (Psychiatry) [Other] - 06/24/23 9:00 am (IN OFFICE APPOINTMENT) Gary JERONIMO [Other] - 06/12/23 (fax- [phone] Visiting RN will start on 06/12/23 they will call you to set a time of the visit. ) Sahara Ferreira (Therapy) [Other] - 06/16/23 4:00 pm (IN OFFICE APPOINTMENT) [facility] [Provider Group] - 1 Week Discharge Medications: New divalproex 500 mg Tablet Extended Release 24 Hr 1,500 mg PO BEDTIME 30 Days Qty: 90 0RF quetiapine 100 mg Tablet 100 mg PO BEDTIME 30 Days Qty: 30 0RF Continued Abilify Maintena 400 mg suspension,extended rel syring 400 mg IM QMONTH Patient Comments: Patient reports her last injection was on 05/13/23 Discharge Orders: Discharge Order (Routine); Ordered 06/11/23 Ordered By: Fabiana Plascencia Diet: Regular diet Activity on Discharge: As tolerated Stand Alone Forms: Patient Portal Discharge page, Community Support Care Plan Goals: Maintain mood and safe behaviors Take medications as prescribed Practice coping skills Continue with outpatient providers and reach out to them as needed Health Concerns: Mood stability and behaviors Plan of Treatment: Follow up with your PCP, psychiatric provider and other outpatient providers regarding above concerns Take medications as prescribed Assessment: Patient was interviewed prior to discharge and found to be fully oriented and without any SI or HI. Patient has insight and demonstrates good judgment in terms of wanting to pursue treatment. Patient is not in imminent risk of harm to self or others and has a safety plan that includes presenting to the closest ER or calling 911 if feeling unsafe. Discharge Date/Time: 06/11/23 10:40
== END 2023-06-11 10:40 | disposition home or self-care (01) | DRG 753 ==
LOC: HO.ED 06-04 11:19 → HO.PADLT16 06-04 13:48
PROVIDERS: Physician Assistant Medical; Admitting Provider Psychiatry & Neurology Psychiatry; Emergency Provider Emergency Medicine; Responsible Provider Registered Nurse; Visit Provider Psychiatry & Neurology Psychiatry
DX: F31.4 Bipolar disorder, current episode depressed, severe, without psychotic features (principal); R45.851 Suicidal ideations; Z91.148 Patient's other noncompliance with medication regimen for other reason; F43.12 Post-traumatic stress disorder, chronic; F17.210 Nicotine dependence, cigarettes, uncomplicated; Z71.6 Tobacco abuse counseling; Z20.822 Contact with and (suspected) exposure to COVID-19; Z79.899 Other long term (current) drug therapy
CPT/HCPCS: 36415; 80048; 80076; 80164; 80307; 81001; 81025; 82140; 84702; 85025; 87086; 87635; 93005; 99285; S9485

== ENCOUNTER → 2023-06-04 08:29 | Outpatient (BNV) | payer MEDICAID, SELFPAY | PROVIDERS: Admitting Provider Psychiatry & Neurology Psychiatry; Emergency Provider Emergency Medicine; Visit Provider Internal Medicine Cardiovascular Disease | DX: F31.4 Bipolar disorder, current episode depressed, severe, without psychotic features (principal); R45.851 Suicidal ideations | CPT/HCPCS: 93010 ==

== ENCOUNTER → 2023-06-04 13:39 | Outpatient (BNV) | payer OTHER, SELFPAY | PROVIDERS: Admitting Provider Psychiatry & Neurology Psychiatry; Emergency Provider Emergency Medicine; Visit Provider Psychiatry & Neurology Psychiatry | DX: F31.4 Bipolar disorder, current episode depressed, severe, without psychotic features (principal); F43.12 Post-traumatic stress disorder, chronic | CPT/HCPCS: 99231; 99232 ==

== ENCOUNTER 2023-06-24 09:37 | Outpatient (REF) | payer MEDICAID, SELFPAY ==
[2023-06-24 09:48] LABS: MANUAL DIFF FLAG NO
[2023-06-24 09:59] LABS: Basophils Percent Auto 0.3 % (0-2); Eosinophils Absolute Auto 0.1 X10*3/uL (0.0-0.4); Hematocrit 41.3 % (37.0-47.0); Hemoglobin 13.9 g/dl (12.0-16.0); Imm Gran Abs Auto 0.03 X10*3/uL (0.00-0.03); Imm Gran Pct Auto 0.5 % (0.0-0.4); Lymphocytes Absolute Auto 2.5 X10*3/uL (1.2-4.9); Lymphocytes Percent Auto 42.3 % (20-40); Mean Corpuscular HGB Conc 33.7 g/dl (31.0-35.0); Mean Corpuscular Hemoglobin 30.4 pg (27.0-33.0); Mean Corpuscular Volume 90.4 fL (80.0-98.0); Mean Platelet Volume 9.4 fL (9.4-12.3); Monocytes Absolute Auto 0.3 X10*3/uL (0.1-1.2); Monocytes Percent Auto 5.7 % (2-11); Neutrophils Percent Auto 50.2 % (45-73); Platelet Count 214 X10*3/uL (160-400); Red Blood Count 4.57 X10*6/uL (4.20-5.50); Red Cell Distribution Width 12.1 % (11.0-16.0); White Blood Count 5.9 X10*3/uL (4.8-10.8)
[2023-06-24 10:15] LABS: Valproate 94.2 mcg/mL (50.0-100.0)
[2023-06-24 10:20] LABS: Alanine Aminotransferase 6 U/L (0-31); Albumin Level 4.1 g/dL (3.5-5.0); Alkaline Phosphatase 55 U/L (39-117); Anion Gap 11 (12-20); Aspartate Amino Transferase 13 U/L (5-31); Bilirubin Total 0.2 mg/dL (0.0-1.0); Blood Urea Nitrogen 13 mg/dL (9-16); Calcium 9.5 mg/dL (8.4-10.2); Carbon Dioxide 27 mmol/L (22-29); Chloride 106 mmol/L (96-108); Estimated Glomerular Filt Rate > 60; Glucose Random 98 mg/dL (60-115); Potassium 3.8 mmol/L (3.3-5.1); Sodium 140 mmol/L (135-145); Total Protein 7.2 g/dL (6.5-8.0)
== END 2023-06-24 09:38 | disposition home or self-care (01) ==
LOC: HO.LAB 09:37
PROVIDERS: Visit Provider Clinical Nurse Specialist Psychiatric/Mental Health, Adult
DX: Z79.899 Other long term (current) drug therapy (principal)
CPT/HCPCS: 36415; 80053; 80164; 85025

== ENCOUNTER 2023-09-22 14:28 | Emergency (ER) | payer OTHER, SELFPAY ==
[2023-09-22 14:43] VITALS: BP 98/55; PULSE 99; RESP 18; TEMP 36.8; O2SAT 98; BMI 27.4
--- NOTE | 2023-09-22 15:43 | ED.GENADULT ---
HPI - General Adult General Chief complaint: Psychiatric Symptoms Stated complaint: Crisis Time Seen by Provider: 09/22/23 15:43 Source: patient Mode of arrival: ambulatory Limitations: no limitations History of Present Illness HPI narrative: Patient is a 23 year old assigned female at with a history of bipolar disorder presenting to the emergency department today with increased depression. Patient states that she feels much more depressed than usual but is not suicidal. Patient states that she does not always remember to take her Depakote or seroquel. Patient denies any dizziness, lightheadedness, abdominal pain, nausea, vomiting, fever, chills, blurry vision, double vision, loss of vision, chest pain, difficulty breathing, shortness of breath, back pain, night sweats, pain with urination, increased urinary frequency, increased urinary urgency, blood in her urine or stool, syncope or a near syncopal episode, recent trauma or falls, bowel incontinence, bladder incontinence, bowel retention, bladder retention, or any other complaints at this time. Onset (ago): day(s) Relieving factors: none Exacerbating factors: none Associated symptoms: denies other symptoms Treatments prior to arrival: none Related Data Home Medications ?Medication ?Instructions ?Recorded ?Confirmed aripiprazole 400 mg suspension, 400 mg IM QMONTH 06/03/23 06/03/23 extended rel.intramuscular syringe (Ondina Zapien) Previous Rx's ?Medication ?Instructions ?Recorded divalproex 500 mg tablet,extended 1,500 mg (3 x 500 mg) PO BEDTIME 06/10/23 release 24 hr 30 days #90 tabs quetiapine 100 mg tablet 100 mg PO BEDTIME 30 days #30 tabs 06/10/23 Allergies Allergy/AdvReac Type Severity Reaction Status Date / Time insect venom [MOSQUITO] Allergy Unknown UNKNOWN Verified 09/22/23 14:54 paliperidone [From INVEGA] Allergy Unknown DYSTONIC Verified 09/22/23 14:54 REACTION haloperidol [HALOPERIDOL] AdvReac Intermediate Dystonic Verified 09/22/23 14:54 reaction Review of Systems Constitutional: Constitutional: Reports no additional constitutional complaints, Denies chills, Denies fever(s) and Denies night sweats Eyes: Eyes: Reports no additional eye complaints, Denies blurry vision, Denies change in vision, Denies diplopia, Denies eye discharge, Denies loss of vision and Denies eye pain ENT: Denies dizziness Cardiovascular: Cardiovascular: Reports no additional cardiovascular complaints, Denies chest pain, Denies lightheadedness, Denies Loss of Consciousness and Denies dyspnea Respiratory: Respiratory: Reports no additional respiratory complaints and Denies dyspnea Gastrointestinal: Gastrointestinal: Reports no additional gastrointestinal complaints, Denies abdominal pain, Denies melena, Denies hematochezia, Denies change in bowel habits and Denies change in stool character Genitourinary: Genitourinary: Denies hematuria, Denies urinary frequency, Denies dysuria, Denies urinary incontinence, Denies urinary hesitancy and Denies urinary urgency Musculoskeletal: Musculoskeletal: Reports no additional musculoskeletal complaints, Denies numbness and Denies tingling Neurologic: Denies dizziness, Denies loss of vision, Denies numbness and Denies tingling Psychiatric: Psychiatric: Reports depression, Denies homicidal ideation and Denies suicidal ideation Endocrine: Endocrine: Reports no additional endocrine complaints Hematologic/Lymphatic: Hematologic/Lymphatic: Reports no additional hematologic/lymphatic complaints Allergic/Immunologic: Allergic/Immunologic: Reports no additional allergic/immunologic complaints [facility] Past Medical History Attestation statement: The following information was validated with the patient. Source: old records reviewed and nursing notes reviewed Medical History Depression Chronic schizophrenia Bipolar disorder Depression Anxiety Bipolar 1 disorder Social History Social History Household Members: Family Household Members Other:: lives in half-way - left 1 week ago Housing: Apartment Housing Other:: half-way Do you presently have visiting nurse or other home services: No Alcohol intake: never Comment: M3 Patient Tobacco Use Status: Former Tobacco user Quit Date: 02/11/2021 Tobacco use type: Cigarette Cigarette Packs Per Day: 0.5 Cigarettes Per Day: 10.0 Years Smoked: 2 years e-Cigarette/Vaping Use: Currently Using Second Hand Smoke Exposure: No Substance Use Type: Marijuana Advance Directives: No Advance Directives Information Provided: No Do you have a plan to hurt others: No Plan service: No Sexual orientation: Don't Know Physical Exam ED Vital Signs: Vital Signs - 24 hr 09/22/23 14:43 Temperature 98.2 F Pulse Rate 99 Respiratory Rate 18 Blood Pressure 98/55 L Pulse Oximetry 98 Oxygen Delivery Method Room Air BMI result Body Mass Index 27.4 Const General: cooperative, no acute distress, alert and awake Nutritional Appearance: well nourished Orientation/consciousness: patient oriented x3 Limitations: no limitations HENMT Head: Yes normal to inspection and Yes atraumatic Ears: hearing grossly normal bilaterally and external ears normal General nose exam: Normal external nose present, no nasal discharge noted and no epistaxis Face and sinus: Yes normal facial exam, No abrasion and No laceration Mouth: Normal oral and palatal mucosa present, no drooling and no muffled voice Eyes General: appearance normal, both eyes and all related structures Periorbital: periorbital findings normal Eyelids: Yes eyelids normal Conjunctivae: conjunctivae normal Pupils: Equal, round and reactive pupils present EOM: EOMs intact bilaterally Neck Neck: Yes normal visual inspection, Yes full ROM and Yes no lymphadenopathy Chest Chest palpation & inspection: normal inspection of the chest Resp Effort & Inspection: normal respiratory effort and able to speak in complete sentences GI Inspection: Yes normal to inspection Neuro General: patient oriented x3 and moves all extremities Cranial nerves: Yes Equal, round and reactive pupils present Cognition (Neuro): normal cognition Motor exam (neuro): 5/5 motor strength present throughout Sensory Exam: Normal double simultaneous stimulation for sensation Coordination: [id number] test normal Extrem General: Yes normal to inspection, Yes full ROM and Yes capillary refill normal Psych Appearance: grossly normal Mental Status: mental status grossly normal Affect: Sad affect present Attitude: Guarded attititude/behavior present Medical Decision Making Medical Decision Making MDM Narrative: Patient is a 23 year old assigned female at with a history of bipolar disorder presenting to the emergency department today with increased depression. Patient's physical exam was as noted in the physical exam portion of this note. Patient's blood work was showed a decreased valporic acid level but was otherwise unremarkable. Patient's urine showed no acute process. I explained my physical exam findings as well as all test results to the patient. I answered all questions asked by the patient. I spoke to the RN in the POD and requested the med rec be completed so that I can order the patient's medications. Patient is pending CARE evaluation. Physician observation started, pending CARE evaluation, at 1544. Differential Diagnosis Differential Diagnoses: The differential diagnosis associated with the presentation includes Depression Medication noncompliance Admission/Observation Consideration of admission/observation: Escalation of care including admission/observation considered Patient's disposition will be determined after CARE evaluation. Lab Data [facility] Lab Attestation statement: I reviewed the patient's lab results. My interpretation of these results are in the [facility] Rationale portion of this note. 09/22/23 17:07 09/22/23 17:07 Labs: Lab Results 09/22/23 09/22/23 Range/Units 16:16 17:07 WBC 6.6 (4.8-10.8) X10*3/uL RBC 4.91 (4.20-5.50) X10*6/uL Hgb 15.0 (12.0-16.0) g/dl Hct 43.7 (37.0-47.0) % MCV 89.0 (80.0-98.0) fL MCH 30.5 (27.0-33.0) pg MCHC 34.3 (31.0-35.0) g/dl RDW 11.7 (11.0-16.0) % Plt Count 265 (160-400) X10*3/uL MPV 9.3 L (9.4-12.3) fL Immature Gran % (Auto) 0.3 (0.0-0.4) % Neut % (Auto) 60.3 (45-73) % Lymph % (Auto) 33.2 (20-40) % Hanson % (Auto) 4.3 (2-11) % Eos % (Auto) 1.4 (0-4) % Baso % (Auto) 0.5 (0-2) % Lymph # (Auto) 2.2 (1.2-4.9) X10*3/uL Hanson # (Auto) 0.3 (0.1-1.2) X10*3/uL Eos # (Auto) 0.1 (0.0-0.4) X10*3/uL Baso # (Auto) 0.0 (0.0-0.2) X10*3/uL Abs Immat Gran (auto) 0.02 (0.00-0.03) X10*3/uL Absolute Neuts (auto) 4.0 (2.0-8.3) x10*3/uL Absolute Nucleated RBC 0.000 (0.0-0.012) X10*3/uL Nucleated RBC % (auto) 0.0 (0.0-0.2) /100WBC Sodium 141 (135-145) mmol/L Potassium 4.3 (3.3-5.1) mmol/L Chloride 107 (96-108) mmol/L Carbon Dioxide 25 (22-29) mmol/L Anion Gap 13 (12-20) BUN 5 L (9-16) mg/dL Creatinine 0.81 (0.5-1.4) mg/dL Estim Creat Clear Calc 113.2 Estimated GFR > 60 Random Glucose 85 (60-115) mg/dL Calcium 10.3 H D (8.4-10.2) mg/dL Total Bilirubin 0.4 (0.0-1.0) mg/dL AST 17 (5-31) U/L ALT 10 (0-31) U/L Alkaline Phosphatase 71 (39-117) U/L Total Protein 8.3 H (6.5-8.0) g/dL Albumin 4.7 (3.5-5.0) g/dL Urine Color Yellow Urine Appearance Clear Urine pH 8.0 (5.0-9.0) Ur Specific Colome 1.010 (1.005-1.025) Urine Protein Negative (Neg-Trace) mg/dL Urine Glucose (UA) Negative (Negative) mg/dL Urine Ketones Negative (Negative) mg/dL Urine Blood Negative (Negative) Urine Nitrite Negative (Negative) Ur Leukocyte Esterase Trace H (Negative) Urine Test NEGATIVE (NEGATIVE) Salicylates < 5.0 L (15-30) mg/dL Urine Opiates Screen Not Detected (Not Detect) Ur Buprenorphine Scrn Not Detected (Not Detect) ng/mL Ur Oxycodone Screen Not Detected (Not Detect) ng/mL Urine Methadone Screen Not Detected (Not Detect) ng/mL Urine Fentanyl Screen Not Detected (Not Detect) Acetaminophen < 3 (<30) mcg/mL Ur Barbiturates Screen Not Detected (Not Detect) Valproic Acid < 12.5 L (50.0-100.0) mcg/mL Ur Phencyclidine Scrn Not Detected (Not Detect) Ur Amphetamines Screen Not Detected (Not Detect) U Benzodiazepines Scrn Not Detected (Not Detect) Urine Cocaine Screen Not Detected (Not Detect) U Marijuana (THC) Screen POSITIVE H (Not Detect) Ethyl Alcohol < 10 mg/dL COVID-19 (SIENNA) Negative (Negative) COVID-19 Clin Com See Note Critical Care Time Critical Care Time Critical Care Time: Yes Total Critical Care Time: 49 Attestation: I spent 49 minutes of Critical Care Time with this patient. This does not include time spent on separately reported billable procedures. Discharge Plan Discharge Clinical Impression: Bipolar 1 disorder, Depression, Noncompliance with medication regimen Patient Disposition: Still a Patient Prescriptions: No Action Abilify Maintena 400 mg suspension,extended rel syring 400 mg IM QMONTH Patient Comments: Patient reports her last injection was on 05/13/23 divalproex 500 mg Tablet Extended Release 24 Hr 1,500 mg PO BEDTIME 30 Days Qty: 90 0RF quetiapine 100 mg Tablet 100 mg PO BEDTIME 30 Days Qty: 30 0RF Interventions: Cedar-Suicide Risk Severity Scale Last Done: 09/22/23 14:55 Print Language: Italian
[2023-09-22 16:32] LABS: Appearance Urine Clear; Color Urine Yellow; Glucose Urine UA Negative (Negative); Leukocyte Esterase Urine Trace (Negative); Nitrite Urine Negative (Negative); UMIC TRIGGER UA YES; Urine Blood Negative (Negative); Urine Ketones Negative (Negative); Urine Protein Negative (Neg-Trace)
[2023-09-22 16:36] LABS: UPreg QC Valid YES; Urine Pregnancy NEGATIVE (NEGATIVE)
[2023-09-22 16:40] LABS: Amphetamine Screen Urine Not Detected (Not Detect); Barbiturates, Urine Not Detected (Not Detect); Benzodiazepines Screen Urine Not Detected (Not Detect); Buprenorphine Scr Not Detected (Not Detect); Cannabinoid Screen Urine POSITIVE (Not Detect); Cocaine Screen Urine Not Detected (Not Detect); Fentanyl, urine Not Detected (Not Detect); Methadone Screen, Urine Not Detected (Not Detect); Opiate Screen Urine Not Detected (Not Detect); Oxycodone Screen Urine Not Detected (Not Detect); Phencyclidine Screen Urine Not Detected (Not Detect)
[2023-09-22 16:41] LABS: COVID-19 Test Negative (Negative); IDNOW Serial# 58CA691E
[2023-09-22 17:11] LABS: MANUAL DIFF FLAG NO
[2023-09-22 17:13] LABS: Basophils Percent Auto 0.5 % (0-2); Eosinophils Absolute Auto 0.1 X10*3/uL (0.0-0.4); Eosinophils Percent Auto 1.4 % (0-4); Hematocrit 43.7 % (37.0-47.0); Imm Gran Abs Auto 0.02 X10*3/uL (0.00-0.03); Imm Gran Pct Auto 0.3 % (0.0-0.4); Lymphocytes Absolute Auto 2.2 X10*3/uL (1.2-4.9); Lymphocytes Percent Auto 33.2 % (20-40); Mean Corpuscular HGB Conc 34.3 g/dl (31.0-35.0); Mean Corpuscular Hemoglobin 30.5 pg (27.0-33.0); Mean Platelet Volume 9.3 fL (9.4-12.3); Monocytes Absolute Auto 0.3 X10*3/uL (0.1-1.2); Monocytes Percent Auto 4.3 % (2-11); Neutrophils Percent Auto 60.3 % (45-73); Platelet Count 265 X10*3/uL (160-400); Red Blood Count 4.91 X10*6/uL (4.20-5.50); Red Cell Distribution Width 11.7 % (11.0-16.0); White Blood Count 6.6 X10*3/uL (4.8-10.8)
[2023-09-22 17:39] LABS: Acetaminophen LAB < 3 mcg/mL (<30); Alanine Aminotransferase 10 U/L (0-31); Albumin Level 4.7 g/dL (3.5-5.0); Alkaline Phosphatase 71 U/L (39-117); Anion Gap 13 (12-20); Aspartate Amino Transferase 17 U/L (5-31); Bilirubin Total 0.4 mg/dL (0.0-1.0); Blood Urea Nitrogen 5 mg/dL (9-16); Calcium 10.3 mg/dL (8.4-10.2); Carbon Dioxide 25 mmol/L (22-29); Chloride 107 mmol/L (96-108); Creatinine Clr Calc Pharmacy 113.2; Estimated Glomerular Filt Rate > 60; Ethanol < 10 mg/dL; Glucose Random 85 mg/dL (60-115); Potassium 4.3 mmol/L (3.3-5.1); Salicylate < 5.0 mg/dL (15-30); Sodium 141 mmol/L (135-145); Total Protein 8.3 g/dL (6.5-8.0); Valproate < 12.5 mcg/mL (50.0-100.0)
[2023-09-22 19:46] LABS: Bacteria Urine 1+ (None Seen); Hyaline Casts Urine 0-2 /LPF (0-2); RBC Urine 0-2 /HPF (0-2)
--- NOTE | 2023-09-22 21:15 | MHC.CARE ---
Pt referred to [facility]. They are unable to accommodate pt today but referral is being reviewed for possible admission tomorrow. Pt will need to call [facility] in the morning to complete phone screening
[2023-09-22] MEDS: QUEtiapine Fumarate 100 MG TABLET PO (21:31)
[2023-09-22] MEDS: Divalproex Sodium ER 500 MG TAB.ER.24H 1500 MG PO (21:31)
--- NOTE | 2023-09-23 09:43 | PC.NURSE ---
attempting to complete phone screening for [facility] at this time.
[2023-09-23] MEDS: buPROPion HCl XL 300 MG TAB.ER.24H PO (09:48)
[2023-09-23 09:50] VITALS: BP 106/68; PULSE 94; RESP 18; TEMP 36.1; O2SAT 98
[2023-09-23 16:02] VITALS: BP 106/68; PULSE 94; RESP 18; TEMP 36.1; O2SAT 98
== END 2023-09-23 16:03 | disposition other institution (70) ==
PROVIDERS: Physician Assistant Medical; Emergency Provider Emergency Medicine
DX: F31.9 Bipolar disorder, unspecified (principal); Z91.148 Patient's other noncompliance with medication regimen for other reason; Z79.899 Other long term (current) drug therapy
CPT/HCPCS: 80053; 80143; 80164; 80179; 80307; 81001; 81025; 85025; 87635; 99284; S9485

== ENCOUNTER 2023-10-09 12:10 | Emergency (ER) | payer OTHER, SELFPAY ==
[2023-10-09 12:14] VITALS: BP 100/68; PULSE 100; RESP 9; TEMP 36.6; O2SAT 100; BMI 27.4
--- NOTE | 2023-10-09 12:14 | ED_ITS ---
HPI - Psych General Chief Complaint: Psychiatric Symptoms Stated Complaint: Crisis Time Seen by Provider: 10/09/23 12:37 Source: patient Mode of arrival: ambulatory Limitations: no limitations History of Present Illness ED Provider: DR. Combs HPI Narrative: 23-year-old female came in for evaluation of depression symptoms, patient had a recent evaluation in the ED with respite admission for 5 days patient was started on Lamictal for depression, no SI or HI, no AVH. Not clear if the patient is compliant with her depression medication. Related Data Home Medications ?Medication ?Instructions ?Recorded ?Confirmed aripiprazole 400 mg suspension, 400 mg IM QMONTH 06/03/23 09/22/23 extended rel.intramuscular syringe (Ondina Zapien) bupropion HCl 300 mg 24 hr tablet, 300 mg PO QAM 09/22/23 10/09/23 extended release lamotrigine 25 mg tablet 25 mg PO BEDTIME 10/09/23 10/09/23 Previous Rx's ?Medication ?Instructions ?Recorded divalproex 500 mg tablet,extended 1,500 mg (3 x 500 mg) PO BEDTIME 06/10/23 release 24 hr 30 days #90 tabs quetiapine 100 mg tablet 100 mg PO BEDTIME 30 days #30 tabs 06/10/23 Allergies Allergy/AdvReac Type Severity Reaction Status Date / Time insect venom [MOSQUITO] Allergy Unknown UNKNOWN Verified 10/09/23 12:15 paliperidone [From INVEGA] Allergy Unknown DYSTONIC Verified 10/09/23 12:15 REACTION haloperidol [HALOPERIDOL] AdvReac Intermediate Dystonic Verified 10/09/23 12:15 reaction Review of Systems 2 Review of Systems: All other systems are reviewed and are negative Constitutional: Reports as per HPI and Reports no additional constitutional complaints Eyes: Reports as per HPI and Reports no additional eye complaints Reports system reviewed and no additional complaints, except as documented Cardiovascular: Reports as per HPI and Reports no additional cardiovascular complaints Respiratory: Reports as per HPI and Reports no additional respiratory complaints Gastrointestinal: Reports as per HPI and Reports no additional gastrointestinal complaints Genitourinary: Reports no additional female genitourinary complaints Musculoskeletal: Reports no additional musculoskeletal complaints Skin/Breast: Reports system reviewed and no additional complaints, except as docu Psychiatric: Reports no additional psychiatric complaints Endocrine: Reports no additional endocrine complaints Hematologic/Lymphatic: Reports no additional hematologic/lymphatic complaints Allergic/Immunologic: Reports no additional allergic/immunologic complaints Reports system reviewed and no additional complaints, except as documented and Reports Abnormal speech present [facility] Past Medical History Medical History Depression Chronic schizophrenia Bipolar disorder Depression Anxiety Bipolar 1 disorder Social History Social History Household Members: Family Household Members Other:: lives in halfway - left 1 week ago Housing: Apartment Housing Other:: halfway Do you presently have visiting nurse or other home services: No Alcohol intake: never Comment: M3 Patient Tobacco Use Status: Former Tobacco user Tobacco use type: Cigarette Cigarette Packs Per Day: 0.5 Cigarettes Per Day: 10.0 Years Smoked: 2 years Smoked in Last 30 Days: Yes e-Cigarette/Vaping Use: Currently Using Second Hand Smoke Exposure: No Use of substances other than those prescribed or required for medical reasons: Yes Substance Use Type: Marijuana Substance Use Frequency: Daily Advance Directives: No Patient : No service: No Sexual orientation: Don't Know Physical Exam 2 Vital Signs: Vital Signs: Last Vital Signs Temp 98 F 10/09/23 12:14 Pulse 100 10/09/23 12:14 Resp 14 10/09/23 13:13 BP 100/68 10/09/23 12:14 Pulse Ox 100 10/09/23 12:14 O2 Del Method Room Air 10/09/23 12:14 BMI result Body Mass Index 27.4 Vital signs have been reviewed and appear to be correct. Blood pressure elevated. Heart rate normal. Respiratory rate normal. Temperature normal. Oxygen saturation normal. Appearance: Alert. Oriented X3. No acute distress. Head: Normal external exam. Normocephalic. Atraumatic. No Rios signs noted. No raccoon eyes noted Eyes: PERRLA. EOMI. Conjunctiva and sclera normal. Eyelids normal. ENT: TM's Normal. Pharynx normal. Uvula midline. Moist mucous membranes. No trismus noted. No drooling noted. No muffled voice noted. Neck: Normal inspection. Neck supple. FROM. No adenopathy. Thyroid Normal. No meningeal signs. No neck mass noted. CVS: Normal heart rate and rhythm. Heart sound normal. No murmurs noted. Pulses normal throughout. Respiratory: No respiratory distress. Painless inspiration. Breath sounds normal. No wheezes/rales/rhonchi noted. Chest nontender. No accessory muscle usage noted or decreased air movement noted. Abdomen: Soft and nontender. Bowel sounds normal in all 4 quadrants. No distention noted. No organomegaly noted. No visible injury noted. Back: No CVA tenderness. Full range of motion noted. Skin: Skin warm and dry. Normal skin color. Normal skin turgor. No rashes/lesions/lacerations noted. Extremities: No lower extremity edema. Extremities exhibit normal range of motion. Extremities nontender. Neuro: Oriented X 3. Cranial nerve exam: II-XII are grossly intact No motor deficit. No sensory deficit. Reflexes normal. Patient Orientation: Person, Place, Time and Situation, okay hygiene and grooming. Fair eye contact, attentive, no tics or tremors. Level of Consciousness: Awake, Appropriate and Alert Patient Behavior: Appropriate, Guarded, Cooperative and Anxious Mood Description: Constricted, Blunted and Apprehensive Affect Description: Constricted, Blunted and Apprehensive Patient Cognition Impaired: No Ability to Follow Directions: Excellent Speech Pattern: Clear, Appropriate and Spontaneous Speech, nonpressured, spontaneous with regular rate and rhythm, normal volume and prosody. No dysarthria. Memory Description: Intact, Immediate Intact and Short Term Intact Hallucinations: None Delusions: Not Present Thought Process: Intact Thought Content: positive for Intact, positive for Logical, denies Suicidal Ideation and denies Homicidal Ideation. Depressive Symptoms: Not present. Judgement and Insight: Limited but adequate. Course Course Course Narrative: This is an RME: Additional HPI, ROS, PE not included below will be deferred to primary provider. RME assessment and note performed by: Mary Alice Fonseca PA-C This is a [id number]-female, with a hx of bipolar disorder, who presents to the ER with complaints of increased depression/anxiety and feeling off . No SI/HI. Recent psych admission. Has not been taking medications at home. Plan: Labs, UA Reevaluation(s) Reevaluation #1: Medically cleared will start physician observation awaiting for a psych consultation. Time: 13:51 Medical Decision Making Differential Diagnosis Differential Diagnoses: The differential diagnosis associated with the presentation includes (Acute psychosis, depression, electrolyte derangement, severe anemia, UTI, .) Admission/Observation Consideration of admission/observation: Escalation of care including admission/observation considered Lab Data MDM Lab Attestation statement: I reviewed the patient's lab results. 10/09/23 12:26 10/09/23 12:26 Labs: Lab Results 10/09/23 Range/Units 12:26 WBC 6.6 (4.8-10.8) X10*3/uL RBC 4.71 (4.20-5.50) X10*6/uL Hgb 14.6 (12.0-16.0) g/dl Hct 42.2 (37.0-47.0) % MCV 89.6 (80.0-98.0) fL MCH 31.0 (27.0-33.0) pg MCHC 34.6 (31.0-35.0) g/dl RDW 12.0 (11.0-16.0) % Plt Count 253 (160-400) X10*3/uL MPV 9.4 (9.4-12.3) fL Immature Gran % (Auto) 0.2 (0.0-0.4) % Neut % (Auto) 63.3 (45-73) % Lymph % (Auto) 28.5 (20-40) % [place] % (Auto) 6.6 (2-11) % Eos % (Auto) 0.9 (0-4) % Baso % (Auto) 0.5 (0-2) % Lymph # (Auto) 1.9 (1.2-4.9) X10*3/uL [place] # (Auto) 0.4 (0.1-1.2) X10*3/uL Eos # (Auto) 0.1 (0.0-0.4) X10*3/uL Baso # (Auto) 0.0 (0.0-0.2) X10*3/uL Abs Immat Gran (auto) 0.01 (0.00-0.03) X10*3/uL Absolute Neuts (auto) 4.2 (2.0-8.3) x10*3/uL Absolute Nucleated RBC 0.000 (0.0-0.012) X10*3/uL Nucleated RBC % (auto) 0.0 (0.0-0.2) /100WBC Sodium 143 (135-145) mmol/L Potassium 3.6 (3.3-5.1) mmol/L Chloride 109 H (96-108) mmol/L Carbon Dioxide 24 (22-29) mmol/L Anion Gap 14 (12-20) BUN 4 L (9-16) mg/dL Creatinine 0.69 (0.5-1.4) mg/dL Estim Creat Clear Calc 132.9 Estimated GFR > 60 Random Glucose 101 (60-115) mg/dL Calcium 9.7 (8.4-10.2) mg/dL Total Bilirubin 0.3 (0.0-1.0) mg/dL Direct Bilirubin 0.1 (0.0-0.5) mg/dL AST 16 (5-31) U/L ALT 7 (0-31) U/L Alkaline Phosphatase 58 (39-117) U/L Total Protein 7.6 (6.5-8.0) g/dL Albumin 4.4 (3.5-5.0) g/dL Urine Color Yellow Urine Appearance Clear Urine pH 8.0 (5.0-9.0) Ur Specific [place] <= 1.005 (1.005-1.025) Urine Protein Negative (Neg-Trace) mg/dL Urine Glucose (UA) Negative (Negative) mg/dL Urine Ketones Negative (Negative) mg/dL Urine Blood Large (3+) H (Negative) Urine Nitrite Negative (Negative) Ur Leukocyte Esterase Small (1+) H (Negative) Urine RBC 3-5 H (0-2) /HPF Urine WBC 6-10 H (0-5) /HPF Ur Squamous Epith Cells 0-2 (0-2) /HPF Urine Bacteria None Seen (None Seen) Hyaline Casts 0-2 (0-2) /LPF Urine Test NEGATIVE (NEGATIVE) Salicylates < 5.0 L (15-30) mg/dL Urine Opiates Screen Not Detected (Not Detect) Ur Buprenorphine Scrn Not Detected (Not Detect) ng/mL Ur Oxycodone Screen Not Detected (Not Detect) ng/mL Urine Methadone Screen Not Detected (Not Detect) ng/mL Urine Fentanyl Screen Not Detected (Not Detect) Acetaminophen < 3 (<30) mcg/mL Ur Barbiturates Screen Not Detected (Not Detect) Ur Phencyclidine Scrn Not Detected (Not Detect) Ur Amphetamines Screen Not Detected (Not Detect) U Benzodiazepines Scrn Not Detected (Not Detect) Urine Cocaine Screen Not Detected (Not Detect) U Marijuana (THC) Screen POSITIVE H (Not Detect) Ethyl Alcohol < 10 mg/dL Discharge Plan Discharge Clinical Impression: Depression Patient Disposition: Still a Patient Prescriptions: No Action Abilify Maintena 400 mg suspension,extended rel syring 400 mg IM QMONTH Patient Comments: Patient reports her last injection was on 09/13/23- administered by nurse at [facility] divalproex 500 mg Tablet Extended Release 24 Hr 1,500 mg PO BEDTIME 30 Days Qty: 90 0RF quetiapine 100 mg Tablet 100 mg PO BEDTIME 30 Days Qty: 30 0RF bupropion HCl 300 mg Tablet Extended Release 24 Hr 300 mg PO QAM lamotrigine 25 mg tablet 25 mg PO BEDTIME Interventions: [place]-Suicide Risk Severity Scale Last Done: 10/09/23 13:13 Print Language: Honduran
[2023-10-09 12:34] LABS: MANUAL DIFF FLAG NO
[2023-10-09 12:35] LABS: Basophils Percent Auto 0.5 % (0-2); Eosinophils Absolute Auto 0.1 X10*3/uL (0.0-0.4); Eosinophils Percent Auto 0.9 % (0-4); Hematocrit 42.2 % (37.0-47.0); Hemoglobin 14.6 g/dl (12.0-16.0); Imm Gran Abs Auto 0.01 X10*3/uL (0.00-0.03); Imm Gran Pct Auto 0.2 % (0.0-0.4); Lymphocytes Absolute Auto 1.9 X10*3/uL (1.2-4.9); Lymphocytes Percent Auto 28.5 % (20-40); Mean Corpuscular HGB Conc 34.6 g/dl (31.0-35.0); Mean Corpuscular Volume 89.6 fL (80.0-98.0); Mean Platelet Volume 9.4 fL (9.4-12.3); Monocytes Absolute Auto 0.4 X10*3/uL (0.1-1.2); Monocytes Percent Auto 6.6 % (2-11); Neutrophils Absolute Auto 4.2 x10*3/uL (2.0-8.3); Neutrophils Percent Auto 63.3 % (45-73); Platelet Count 253 X10*3/uL (160-400); Red Blood Count 4.71 X10*6/uL (4.20-5.50); White Blood Count 6.6 X10*3/uL (4.8-10.8)
[2023-10-09 12:36] LABS: Appearance Urine Clear; Color Urine Yellow; Glucose Urine UA Negative (Negative); Leukocyte Esterase Urine Small (1+) (Negative); Nitrite Urine Negative (Negative); Specific Gravity - Urine <= 1.005 (1.005-1.025); UMIC TRIGGER UACC YES; Urine Blood Large (3+) (Negative); Urine Ketones Negative (Negative); Urine Protein Negative (Neg-Trace)
[2023-10-09 12:39] LABS: UPreg QC Valid YES; Urine Pregnancy NEGATIVE (NEGATIVE)
[2023-10-09 12:47] LABS: Amphetamine Screen Urine Not Detected (Not Detect); Barbiturates, Urine Not Detected (Not Detect); Benzodiazepines Screen Urine Not Detected (Not Detect); Buprenorphine Scr Not Detected (Not Detect); Cannabinoid Screen Urine POSITIVE (Not Detect); Cocaine Screen Urine Not Detected (Not Detect); Fentanyl, urine Not Detected (Not Detect); Methadone Screen, Urine Not Detected (Not Detect); Opiate Screen Urine Not Detected (Not Detect); Oxycodone Screen Urine Not Detected (Not Detect); Phencyclidine Screen Urine Not Detected (Not Detect)
[2023-10-09 12:54] LABS: Alanine Aminotransferase 7 U/L (0-31); Albumin Level 4.4 g/dL (3.5-5.0); Alkaline Phosphatase 58 U/L (39-117); Anion Gap 14 (12-20); Aspartate Amino Transferase 16 U/L (5-31); Bilirubin Direct 0.1 mg/dL (0.0-0.5); Bilirubin Total 0.3 mg/dL (0.0-1.0); Blood Urea Nitrogen 4 mg/dL (9-16); Calcium 9.7 mg/dL (8.4-10.2); Carbon Dioxide 24 mmol/L (22-29); Chloride 109 mmol/L (96-108); Creatinine Clr Calc Pharmacy 132.9; Estimated Glomerular Filt Rate > 60; Glucose Random 101 mg/dL (60-115); Potassium 3.6 mmol/L (3.3-5.1); Sodium 143 mmol/L (135-145); Total Protein 7.6 g/dL (6.5-8.0)
[2023-10-09 13:13] VITALS: RESP 14
[2023-10-09 13:19] LABS: Bacteria Urine None Seen (None Seen); Hyaline Casts Urine 0-2 /LPF (0-2); Squamous Epithelial Cell Urine 0-2 /HPF (0-2); UACC Culture Trigger YES
[2023-10-09 13:20] LABS: Acetaminophen LAB < 3 mcg/mL (<30); Ethanol < 10 mg/dL; Salicylate < 5.0 mg/dL (15-30)
--- NOTE | 2023-10-09 13:31 | PC.NURSE ---
Patient brought back from waiting room, changed over by HUSSAIN Jennings and brought to 3. Patient reports that she is experiencing increased stress and anxiety as well as some depressive thoughts. patient denies SI/HI/AH. Calm and cooperative, alert and oriented x4. pt verbalizes no complaints to this RN at this time. Pending CARE eval
--- NOTE | 2023-10-09 18:09 | MHC.CARE ---
Addendum entered by Miya Cherry LCSW 10/09/23 20:47: Referrals continues to be under review Original Note: Contacted Lola at [facility]- confirmed [facility] referral had been received and activated
[2023-10-09] MEDS: Ibuprofen 600 MG TABLET PO (22:37)
[2023-10-09 22:39] VITALS: BP 97/60; PULSE 99; RESP 18; TEMP 36.4; O2SAT 97
[2023-10-09] MEDS: Divalproex Sodium ER 500 MG TAB.ER.24H 1500 MG PO (22:48)
[2023-10-09] MEDS: lamoTRIgine 25 MG TABLET PO (22:48)
[2023-10-09] MEDS: QUEtiapine Fumarate 100 MG TABLET PO (22:48)
[2023-10-10 05:57] VITALS: RESP 16
--- NOTE | 2023-10-10 06:40 | PC.NURSE ---
Patient slept through the night, no distress observed/reported, meds and meals compliant, disposition per [facility] is respite bed search, no behavior issues, VSS, will continue to monitor
--- NOTE | 2023-10-10 07:52 | PC.NURSE ---
Assumed care of patient at 0645, patient appears to be in no apparent distress, pt aware of plan of care for respite bedsearch
[2023-10-10] MEDS: buPROPion HCl XL 300 MG TAB.ER.24H PO (08:00)
--- NOTE | 2023-10-10 09:27 | MHC.CARE ---
Patient accepted to [facility], the facility will be calling to coordinate admission.
[2023-10-10] MEDS: Ibuprofen 600 MG TABLET PO (10:30)
[2023-10-10 10:57] VITALS: BP 122/76; PULSE 87; RESP 16; TEMP 36.6; O2SAT 97
== END 2023-10-10 10:59 ==
PROVIDERS: Physician Assistant Medical; Emergency Provider Emergency Medicine
DX: F32.A Depression, unspecified (principal); F20.9 Schizophrenia, unspecified; F43.12 Post-traumatic stress disorder, chronic; F41.9 Anxiety disorder, unspecified; F50.9 Eating disorder, unspecified; Z68.27 Body mass index [BMI] 27.0-27.9, adult; Z87.891 Personal history of nicotine dependence; Z79.899 Other long term (current) drug therapy
CPT/HCPCS: 36415; 80048; 80076; 80143; 80179; 80307; 81001; 81025; 85025; 87086; 99285; S9485

== ENCOUNTER 2023-11-16 10:12 | Emergency (ER) | payer MEDICAID, SELFPAY ==
--- NOTE | 2023-11-16 11:12 | PC.NURSE ---
No response to name called to triage x 1 at 11:11am.
== END 2023-11-16 12:16 | disposition left against medical advice (07) ==
PROVIDERS: Emergency Provider Emergency Medicine
DX: N39.0 Urinary tract infection, site not specified (principal); Z53.21 Procedure and treatment not carried out due to patient leaving prior to being seen by health care provider

== ENCOUNTER 2023-12-15 15:22 | Emergency (ER) | payer MEDICAID, SELFPAY ==
[2023-12-15 15:24] VITALS: BP 108/66; PULSE 88; RESP 20; TEMP 36.4; O2SAT 97; BMI 25.8
--- NOTE | 2023-12-15 15:24 | ED_ITS ---
HPI - Dental/Oral General Chief complaint: Dental/Oral Stated complaint: tooth pain Time Seen by Provider: 12/15/23 15:27 Source: patient, RN notes reviewed and old records reviewed Mode of arrival: ambulatory History of Present Illness ED Provider: Clementine Ford PA-C HPI Narrative: 23-year-old female with a past medical history depression, schizophrenia, bipolar, anxiety, presenting to the ED complaining of left upper molar pain x4 days at broken tooth site. States tooth has been broken for a long time with increasing pain over the past few days. Denies fever, chills, drainage from area. [facility] has dentist appointment on 12/18 MD Complaint: tooth pain Related Data Home Medications ?Medication ?Instructions ?Recorded ?Confirmed aripiprazole 400 mg suspension, 400 mg IM QMONTH 06/03/23 10/09/23 extended rel.intramuscular syringe (Ondina Zapien) bupropion HCl 300 mg 24 hr tablet, 300 mg PO QAM 09/22/23 10/09/23 extended release lamotrigine 25 mg tablet 25 mg PO BEDTIME 10/09/23 10/09/23 Previous Rx's ?Medication ?Instructions ?Recorded divalproex 500 mg tablet,extended 1,500 mg (3 x 500 mg) PO BEDTIME 06/10/23 release 24 hr 30 days #90 tabs quetiapine 100 mg tablet 100 mg PO BEDTIME 30 days #30 tabs 06/10/23 acetaminophen 500 mg tablet 500 mg PO Q6H PRN fever or pain 12/15/23 (Tylenol Extra Strength) #14 tabs amoxicillin 875 mg-potassium 1 tab PO BID 7 days #14 tabs 12/15/23 clavulanate 125 mg tablet ibuprofen 800 mg tablet 800 mg PO Q8H PRN pain #14 tabs 12/15/23 Allergies Allergy/AdvReac Type Severity Reaction Status Date / Time insect venom [MOSQUITO] Allergy Unknown UNKNOWN Verified 12/15/23 15:27 paliperidone [From INVEGA] Allergy Unknown DYSTONIC Verified 12/15/23 15:27 REACTION haloperidol [HALOPERIDOL] AdvReac Intermediate Dystonic Verified 12/15/23 15:27 reaction Review of Systems Review of Systems: Constitutional: No Fever, No Chills ENT/Mouth: +dental pain, No Ear Pain, No Nasal Congestion, No Sinus Pain, No Hoarseness, No sore throat, No Rhinorrhea, No Swallowing Difficulty Cardiovascular: No Chest Pain, No SOB Respiratory: No Cough Gastrointestinal: No Nausea, No Vomiting, No Diarrhea, No Constipation, No Abdominal pain Skin: No Skin Lesions, No rash Neuro: No Weakness Yes all other systems are reviewed and are negative Constitutional: Constitutional: Reports as per [facility] Past Medical History Attestation statement: The following information was validated with the patient. Source: old records reviewed Medical History Depression Chronic schizophrenia Bipolar disorder Depression Anxiety Bipolar 1 disorder Social History Social History Household Members: Family Household Members Other:: lives in correction - left 1 week ago Housing: Apartment Housing Other:: correction Do you presently have visiting nurse or other home services: No Alcohol intake: never Comment: M3 Patient Tobacco Use Status: Former Tobacco user Tobacco use type: Cigarette Cigarette Packs Per Day: 0.5 Cigarettes Per Day: 10.0 Years Smoked: 2 years e-Cigarette/Vaping Use: Currently Using Second Hand Smoke Exposure: No Substance Use Type: Marijuana service: No Sexual orientation: Don't Know Physical Exam Vital Signs: Vital Signs: Last Vital Signs Temp 97.5 F 12/15/23 15:24 Pulse 88 12/15/23 15:24 Resp 20 12/15/23 15:24 BP 108/66 12/15/23 15:24 Pulse Ox 97 12/15/23 15:24 O2 Del Method Room Air 12/15/23 15:24 BMI result Body Mass Index 25.8 Const: General: cooperative, healthy appearing and no acute distress Orientation/consciousness: patient oriented x3 Limitations: no limitations HEENT: Other: + multiple broken teeth. Left upper 3rd molar with gingival tenderness and mild swelling. No fluctuance/induration. No facial swelling. Head: Yes normal to inspection and Yes atraumatic Ears: hearing grossly normal bilaterally and external ears normal General nose exam: Normal external nose present Face and sinus: Yes normal facial exam Mouth: no audible dysphonia and no drooling Teeth and gingiva: poor dentition Eyes: General: appearance normal, both eyes and all related structures EOM: EOMs intact bilaterally Neck: Neck: Yes normal visual inspection and Yes no meningeal signs Resp: Effort & Inspection: normal respiratory effort and no respiratory distress Cardio: Rate: regular rate Skin: Rashes: no rashes Wounds: no wounds Neuro: General: patient oriented x3, tone normal and no meningeal signs Cranial nerves: Yes CN's II-XII intact bilaterally Gait exam (Neuro): Normal gait present Extrem: General: Yes normal to inspection Medical Decision Making Medical Decision Making MDM Narrative: 23-year-old female with a past medical history depression, schizophrenia, bipolar, anxiety, presenting to the ED complaining of left upper molar pain x4 days at broken tooth site. On exam vital signs stable, NAD, nontoxic appearing, physical exam as noted above. Concern for dental infection. No evidence of abscess. No evidence of cellulitis or [employer] ENGINE[employer]ING [employer]/retropharyngeal abscess Plan: P.o. antibiotics, dentistry follow-up Please refer to course for remaining clinical decision making, interpretation of labs/imaging results, and discussions with consultants and/or family members. Differential Diagnosis Differential Diagnoses: The differential diagnosis associated with the presentation includes As above External Record Review External record reviewed: Inpatient record, Office record, Outpatient record, Prior outpatient labs, Prior outpatient radiology, Primary care record and Outside ED record Tests considered The following testing was considered but not selected: As above Prescription Management I considered prescription management with: Pain Medication and Antibiotic Discharge Plan Discharge Clinical Impression: Dental caries, Toothache Patient Disposition: Home, Self-Care Instructions: Toothache (ED) Additional Instructions: Augmentin is antibiotic please take as prescribed Ibuprofen as an anti-inflammatory/pain medication, take food In addition take Tylenol Please follow-up with your dentist Ice If pain persists or worsens/becomes unbearable, your unable to eat or drink/swallow return to the ED Prescriptions: New amoxicillin-pot clavulanate 875-125 mg tablet 1 tab PO BID 7 Days Qty: 14 0RF ibuprofen 800 mg tablet 800 mg PO Q8H PRN (Reason: pain) Qty: 14 0RF acetaminophen [Tylenol Extra Strength] 500 mg tablet 500 mg PO Q6H PRN (Reason: fever or pain) Qty: 14 0RF No Action Abilify Maintena 400 mg suspension,extended rel syring 400 mg IM QMONTH Patient Comments: Patient reports her last injection was on 09/13/23- administered by nurse at [facility] divalproex 500 mg Tablet Extended Release 24 Hr 1,500 mg PO BEDTIME 30 Days Qty: 90 0RF quetiapine 100 mg Tablet 100 mg PO BEDTIME 30 Days Qty: 30 0RF bupropion HCl 300 mg Tablet Extended Release 24 Hr 300 mg PO QAM lamotrigine 25 mg tablet 25 mg PO BEDTIME Referrals: Ruperto Samuels [Dentist] - Colt Ornelas DMD [Dentist] - Beena Sanon DMD [Dentist] - Kevyn Peter DDS [Physician] - Print Language: Amharic
[2023-12-15 15:37] VITALS: BP 108/66; PULSE 84; RESP 20; TEMP 36.3
== END 2023-12-15 15:37 | disposition home or self-care (01) ==
PROVIDERS: Emergency Provider Emergency Medicine
DX: K02.9 Dental caries, unspecified (principal); Z79.899 Other long term (current) drug therapy
CPT/HCPCS: 99282; 99283

== ENCOUNTER 2023-12-17 01:10 | Emergency (ER) | payer MEDICAID, SELFPAY ==
[2023-12-17 01:17] VITALS: BP 105/65; PULSE 80; RESP 16; TEMP 36.6; O2SAT 98; BMI 24.2
[2023-12-17 01:38] VITALS: BP 95/54; PULSE 60; RESP 20; TEMP 36.6; O2SAT 99
--- NOTE | 2023-12-17 01:49 | ED_ITS ---
HPI - Psych General Chief Complaint: Psychiatric Symptoms Stated Complaint: crisis Time Seen by Provider: 12/17/23 01:45 Source: patient Mode of arrival: ambulatory Limitations: no limitations History of Present Illness ED Provider: Dr. Jerri Puri HPI Narrative: Patient comes to the emergency room complaining of depression. Patient states that she forgot to call the pharmacy and her provider to get refills. Patient has been out of medications for a month. However, patient states that she recently saw her psychiatrist approximately 9 days ago. Patient complaining of depression. Patient states that a friend picked up her medications at the pharmacy and is supposed to start her meds tomorrow. In the meantime, patient requesting to be seen by the care team she would like to go to respite. Patient denies SI or HI Related Data Home Medications ?Medication ?Instructions ?Recorded ?Confirmed aripiprazole 400 mg suspension, 400 mg IM QMONTH 06/03/23 10/09/23 extended rel.intramuscular syringe (Ondina Zapien) bupropion HCl 300 mg 24 hr tablet, 300 mg PO QAM 09/22/23 10/09/23 extended release lamotrigine 25 mg tablet 25 mg PO BEDTIME 10/09/23 10/09/23 Previous Rx's ?Medication ?Instructions ?Recorded divalproex 500 mg tablet,extended 1,500 mg (3 x 500 mg) PO BEDTIME 06/10/23 release 24 hr 30 days #90 tabs quetiapine 100 mg tablet 100 mg PO BEDTIME 30 days #30 tabs 06/10/23 acetaminophen 500 mg tablet 500 mg PO Q6H PRN fever or pain 12/15/23 (Tylenol Extra Strength) #14 tabs amoxicillin 875 mg-potassium 1 tab PO BID 7 days #14 tabs 12/15/23 clavulanate 125 mg tablet ibuprofen 800 mg tablet 800 mg PO Q8H PRN pain #14 tabs 12/15/23 Allergies Allergy/AdvReac Type Severity Reaction Status Date / Time insect venom [MOSQUITO] Allergy Unknown UNKNOWN Verified 12/17/23 01:26 paliperidone [From INVEGA] Allergy Unknown DYSTONIC Verified 12/17/23 01:26 REACTION haloperidol [HALOPERIDOL] AdvReac Intermediate Dystonic Verified 12/17/23 01:26 reaction Review of Systems Review of Systems: Constitutional : No Weight loss, No Fever, No Chills, No Night Sweats, No Fatigue, No Malaise ENT/Mouth : No Hearing loss, No Ear Pain, No Nasal Congestion, No Sinus Pain, No Hoarseness, No sore throat, No Rhinorrhea, No Swallowing Difficulty Eyes: No Eye Pain, No Swelling, No Redness, No Foreign Body, No Discharge, No Vision Changes Cardiovascular : No Chest Pain, No SOB, No Dyspnea on Exertion, No Orthopnea, No Edema, No Palpitations Respiratory : No Cough, No Sputum, No Wheezing, No Smoke Exposure, No Dyspnea Gastrointestinal : No Nausea, No Vomiting, No Diarrhea, No Constipation, No abdominal Pain, No Hematochezia, No Melena Genitourinary : no irregular bleeding, No Dysuria, No Urinary Frequency, No He maturia, No Urinary Incontinence, No Urgency, No Flank Pain, No Urinary Flow Changes, No Hesitancy Musculoskeletal : No joint pain, No Myalgias, No Joint Swelling Skin : No Skin Lesions, No rash Neuro : No Weakness, No Numbness, No Paresthesias, No Loss of Consciousness, No Dizziness, No Headache Psych : No Anxiety/Panic, complaining of Depression, No SI/HI/AH/VH, No Social Issues, Heme/Lymph: No Bruising, No Bleeding,No Lymphadenopathy Endocrine : No Polyuria, No Polydipsia, No Temperature Intolerance PMFSH Past Medical History Medical History Depression Chronic schizophrenia Bipolar disorder Depression Anxiety Bipolar 1 disorder Social History Social History Household Members: Family Household Members Other:: lives in longterm - left 1 week ago Housing: Apartment Housing Other:: longterm Do you presently have visiting nurse or other home services: No Alcohol intake: never Comment: M3 Patient Tobacco Use Status: Former Tobacco user Tobacco use type: Cigarette Cigarette Packs Per Day: 0.5 Cigarettes Per Day: 10.0 Years Smoked: 2 years Smoked in Last 30 Days: Yes e-Cigarette/Vaping Use: Currently Using Second Hand Smoke Exposure: No Substance Use Type: Marijuana Do you have a plan to hurt others: No Plan service: No Sexual orientation: Don't Know Physical Exam Vital Signs: Vital Signs: Last Vital Signs Temp 97.9 F 08/09/24 01:38 Pulse 60 12/17/23 01:38 Resp 20 12/17/23 01:38 BP 95/54 L 12/17/23 01:38 Pulse Ox 99 12/17/23 01:38 O2 Del Method Room Air 12/17/23 01:38 BMI result Body Mass Index 24.2 Const: Other: Appearance: Alert. Oriented X3. No acute distress. Eyes: Pupils equal, round and reactive to light. ENT: Pharynx normal. Neck: Normal inspection. Neck supple. No lymph nodes noted. No crepitus CVS: Normal heart rate and rhythm. Pulses normal. Normal S1 and S2 Respiratory: No respiratory distress. Breath sounds normal. No Wheezing. No rales Abdomen: Soft and nontender. No rigidity. No distention. Skin: Skin warm and dry. Normal skin color. Normal skin turgor. Extremities: No lower extremity edema. No Lacerations. No Rash Neuro: Oriented X 3. No motor deficit. No sensory deficit. Moving all extremities. No slurred speech. CN 2 through 12 grossly intact Psych: calm, cooperative, normal affect Course Course Course Narrative: -all of patient's labs pending -care team consult pending -patient is not SI or HI, section 12 not indicated -physician observation started at 02:00 Medical Decision Making Differential Diagnosis Differential Diagnoses: The differential diagnosis associated with the presentation includes (Anxiety, depression) Admission/Observation Consideration of admission/observation: Escalation of care including admission/observation considered (Patient is under physician observation waiting to be seen by the care team) Discharge Plan Discharge Clinical Impression: Depression Patient Disposition: Still a Patient Prescriptions: No Action Abilify Maintena 400 mg suspension,extended rel syring 400 mg IM QMONTH Patient Comments: Patient reports her last injection was on 09/13/23- administered by nurse at [facility] divalproex 500 mg Tablet Extended Release 24 Hr 1,500 mg PO BEDTIME 30 Days Qty: 90 0RF quetiapine 100 mg Tablet 100 mg PO BEDTIME 30 Days Qty: 30 0RF bupropion HCl 300 mg Tablet Extended Release 24 Hr 300 mg PO QAM amoxicillin-pot clavulanate 875-125 mg tablet 1 tab PO BID 7 Days Qty: 14 0RF ibuprofen 800 mg tablet 800 mg PO Q8H PRN (Reason: pain) Qty: 14 0RF acetaminophen [Tylenol Extra Strength] 500 mg tablet 500 mg PO Q6H PRN (Reason: fever or pain) Qty: 14 0RF lamotrigine 25 mg tablet 25 mg PO BEDTIME Interventions: [place]-Suicide Risk Severity Scale Last Done: 12/17/23 01:38 Print Language: Kazakh
[2023-12-17 02:35] LABS: Basophils Percent Auto 0.4 % (0-2); Eosinophils Absolute Auto 0.1 X10*3/uL (0.0-0.4); Hemoglobin 12.4 g/dl (12.0-16.0); Imm Gran Abs Auto 0.01 X10*3/uL (0.00-0.03); Imm Gran Pct Auto 0.2 % (0.0-0.4); Lymphocytes Absolute Auto 2.1 X10*3/uL (1.2-4.9); MANUAL DIFF FLAG NO; Mean Corpuscular HGB Conc 34.4 g/dl (31.0-35.0); Mean Corpuscular Hemoglobin 30.5 pg (27.0-33.0); Mean Corpuscular Volume 88.7 fL (80.0-98.0); Mean Platelet Volume 9.5 fL (9.4-12.3); Monocytes Absolute Auto 0.4 X10*3/uL (0.1-1.2); Monocytes Percent Auto 7.8 % (2-11); Neutrophils Absolute Auto 2.6 x10*3/uL (2.0-8.3); Neutrophils Percent Auto 49.6 % (45-73); Platelet Count 225 X10*3/uL (160-400); Red Blood Count 4.06 X10*6/uL (4.20-5.50); Red Cell Distribution Width 11.9 % (11.0-16.0); White Blood Count 5.2 X10*3/uL (4.8-10.8)
[2023-12-17 02:52] LABS: Ethanol < 10 mg/dL
[2023-12-17 02:56] LABS: Alanine Aminotransferase 8 U/L (0-31); Alkaline Phosphatase 57 U/L (39-117); Anion Gap 14 (12-20); Aspartate Amino Transferase 14 U/L (5-31); Bilirubin Direct 0.1 mg/dL (0.0-0.5); Bilirubin Total 0.3 mg/dL (0.0-1.0); Blood Urea Nitrogen 6 mg/dL (9-16); Calcium 9.9 mg/dL (8.4-10.2); Carbon Dioxide 24 mmol/L (22-29); Chloride 105 mmol/L (96-108); Creatinine Clr Calc Pharmacy 113.7; Estimated Glomerular Filt Rate > 60; Glucose Random 91 mg/dL (60-115); Potassium 3.9 mmol/L (3.3-5.1); Sodium 139 mmol/L (135-145); Total Protein 7.4 g/dL (6.5-8.0)
[2023-12-17 03:01] LABS: HCG Quantitative < 2 mIU/mL
[2023-12-17 05:50] VITALS: BP 90/56; PULSE 63; RESP 16; TEMP 36.7; O2SAT 99
[2023-12-17 06:00] LABS: Appearance Urine Cloudy; Color Urine Yellow; Glucose Urine UA Negative (Negative); Leukocyte Esterase Urine Moderate (2+) (Negative); Nitrite Urine Negative (Negative); Specific Gravity - Urine 1.015 (1.005-1.025); UMIC TRIGGER UACC YES; Urine Blood Trace (Negative); Urine Ketones 80 mg/dL (Negative); Urine Protein Negative (Neg-Trace)
[2023-12-17 06:02] LABS: Bacteria Urine None Seen (None Seen); Hyaline Casts Urine 0-2 /LPF (0-2); RBC Urine 0-2 /HPF (0-2); UACC Culture Trigger YES; WBC Urine 21-50 /HPF (0-5)
[2023-12-17 06:11] LABS: Amphetamine Screen Urine Not Detected (Not Detect); Barbiturates, Urine Not Detected (Not Detect); Benzodiazepines Screen Urine Not Detected (Not Detect); Buprenorphine Scr Not Detected (Not Detect); Cannabinoid Screen Urine POSITIVE (Not Detect); Cocaine Screen Urine Not Detected (Not Detect); Fentanyl, urine Not Detected (Not Detect); Methadone Screen, Urine Not Detected (Not Detect); Opiate Screen Urine Not Detected (Not Detect); Oxycodone Screen Urine Not Detected (Not Detect); Phencyclidine Screen Urine Not Detected (Not Detect)
[2023-12-17 08:00] VITALS: BP 94/54; PULSE 68; RESP 18; TEMP 36.4; O2SAT 98
[2023-12-17 10:57] VITALS: BP 88/40; PULSE 65; RESP 18; TEMP 36.4; O2SAT 97
[2023-12-17 11:09] VITALS: BP 86/50; PULSE 76; RESP 16; TEMP 36.4; O2SAT 97
== END 2023-12-17 11:10 | disposition home or self-care (01) ==
PROVIDERS: Emergency Provider Emergency Medicine
DX: F31.9 Bipolar disorder, unspecified (principal); F41.9 Anxiety disorder, unspecified; F20.9 Schizophrenia, unspecified; F43.12 Post-traumatic stress disorder, chronic; F12.90 Cannabis use, unspecified, uncomplicated; F50.9 Eating disorder, unspecified; Z68.24 Body mass index [BMI] 24.0-24.9, adult; Z87.891 Personal history of nicotine dependence; Z79.899 Other long term (current) drug therapy
CPT/HCPCS: 36415; 80048; 80076; 80307; 81001; 81003; 84702; 85025; 87086; 99285; S9485

== ENCOUNTER 2024-04-02 08:05 | Emergency (ER) | payer MEDICAID, SELFPAY ==
[2024-04-02] VITALS (11 sets, daily range): BP systolic 105–130; BP diastolic 51–80; PULSE 74–99; RESP 10–23; TEMP 36.1–37; O2SAT 98–100; BMI 25.0
--- NOTE | ~2024-04-02 | XR_ITS ---
EXAMINATION: XR ANKLE, LEFT CLINICAL INFORMATION: fall COMPARISON: None available. TECHNIQUE: AP, lateral, and mortise views of the left ankle. FINDINGS: Comminuted displaced fracture of the distal tibia with anterior dislocation of the tibia in relation to the talus. Also noted is a comminuted displaced fracture of the distal fibula. The ankle mortise is disrupted. There is diffuse soft tissue swelling. No radiopaque foreign body. XR/XR ankle LT 2V IMPRESSION: Comminuted displaced fractures of the distal tibia and fibula with disruption of the ankle mortise. Electronically signed by: Adama Briceno MD 04/02/2024 09:09 AM [facility]
--- NOTE | ~2024-04-02 | XR_ITS ---
EXAMINATION: XR ANKLE, LEFT CLINICAL INFORMATION: s/p Closed fracture reduction COMPARISON: Ankle radiographs earlier today TECHNIQUE: 2 views of the left ankle. Overlying cast obscures fine bony detail. FINDINGS/ XR/XR ankle LT 2V IMPRESSION: Interval reduction in previously displaced trimalleolar ankle fracture. Fracture fragments demonstrate significantly improved anatomical alignment. Electronically signed by: Adama Briceno MD 04/02/2024 10:16 AM [facility]
[2024-04-02] MEDS: oxyCODONE HCl Immed Release 5 MG TABLET PO (08:19)
--- NOTE | 2024-04-02 08:22 | ED_ITS ---
HPI - Extremity Injury (Lower) General Chief Complaint: Extremity Injury, Lower Stated Complaint: FALL L ANKLE INJURY Time Seen by Provider: 04/02/24 08:09 Source: patient and EMS Mode of arrival: EMS Limitations: no limitations History of Present Illness ED Provider: DR. Combs HPI Narrative: 24-year-old female brought in by ambulance from [facility] after sustained left ankle injury, patient was going downstairs slept ended up falling few steps of stairs twisting her left ankle causing deformity and severe pain unable to ambulate or bear weight on the ankle, patient otherwise complains of no other injuries, no head trauma, no LOC, no neck pain, no numbness, no weakness. Related Data Home Medications ?Medication ?Instructions ?Recorded ?Confirmed aripiprazole 400 mg suspension, 400 mg IM QMONTH 06/03/23 10/09/23 extended rel.intramuscular syringe (Ondina Zapien) bupropion HCl 300 mg 24 hr tablet, 300 mg PO QAM 09/22/23 10/09/23 extended release lamotrigine 25 mg tablet 25 mg PO BEDTIME 10/09/23 10/09/23 Previous Rx's ?Medication ?Instructions ?Recorded divalproex 500 mg tablet,extended 1,500 mg (3 x 500 mg) PO BEDTIME 06/10/23 release 24 hr 30 days #90 tabs quetiapine 100 mg tablet 100 mg PO BEDTIME 30 days #30 tabs 06/10/23 acetaminophen 500 mg tablet 500 mg PO Q6H PRN fever or pain 12/15/23 (Tylenol Extra Strength) #14 tabs amoxicillin 875 mg-potassium 1 tab PO BID 7 days #14 tabs 12/15/23 clavulanate 125 mg tablet ibuprofen 800 mg tablet 800 mg PO Q8H PRN pain #14 tabs 12/15/23 Allergies Allergy/AdvReac Type Severity Reaction Status Date / Time insect venom [MOSQUITO] Allergy Unknown UNKNOWN Verified 04/02/24 08:12 paliperidone [From INVEGA] Allergy Unknown DYSTONIC Verified 04/02/24 08:12 REACTION haloperidol [HALOPERIDOL] AdvReac Intermediate Dystonic Verified 04/02/24 08:12 reaction Review of Systems Review of Systems: All other systems are reviewed and are negative Constitutional: Reports as per HPI and Reports no additional constitutional complaints Eyes: Reports as per HPI and Reports no additional eye complaints Reports system reviewed and no additional complaints, except as documented Cardiovascular: Reports as per HPI and Reports no additional cardiovascular complaints Respiratory: Reports as per HPI and Reports no additional respiratory complaints Gastrointestinal: Reports as per HPI and Reports no additional gastrointestinal complaints Genitourinary: Reports no additional female genitourinary complaints Musculoskeletal: Reports no additional musculoskeletal complaints Skin/Breast: Reports system reviewed and no additional complaints, except as docu Psychiatric: Reports no additional psychiatric complaints Endocrine: Reports no additional endocrine complaints Hematologic/Lymphatic: Reports no additional hematologic/lymphatic complaints Allergic/Immunologic: Reports no additional allergic/immunologic complaints Reports system reviewed and no additional complaints, except as documented and Reports Abnormal speech present [facility] Past Medical History Medical History Depression Chronic schizophrenia Bipolar disorder Depression Anxiety Bipolar 1 disorder Social History Social History Household Members: Family Household Members Other:: lives in care home - left 1 week ago Housing: Apartment Housing Other:: care home Do you presently have visiting nurse or other home services: No Alcohol intake: never Comment: M3 Patient Tobacco Use Status: Former Tobacco user Tobacco use type: Cigarette Cigarette Packs Per Day: 0.5 Cigarettes Per Day: 10.0 Years Smoked: 2 years e-Cigarette/Vaping Use: Currently Using Second Hand Smoke Exposure: No Substance Use Type: Marijuana Advance Directives: No Advance Directives Information Provided: No Do you have a plan to hurt others: No Plan service: No Sexual orientation: Don't Know Physical Exam Vital Signs: Vital Signs: Last Vital Signs Temp 98.4 F 04/02/24 10:53 Pulse 76 04/02/24 10:53 Resp 12 04/02/24 10:53 BP 122/80 04/02/24 10:53 Pulse Ox 98 04/02/24 10:53 O2 Del Method Room Air 04/02/24 10:53 Oxygen Flow Rate 2 04/02/24 09:26 BMI result Body Mass Index 25.0 Vital signs have been reviewed and appear to be correct. Blood pressure elevated. Heart rate normal. Respiratory rate normal. Temperature normal. Oxygen saturation normal. Appearance: Alert. Oriented X3. No acute distress. Head: Normal external exam. Normocephalic. Atraumatic. No Rios signs noted. No raccoon eyes noted Eyes: PERRLA. EOMI. Conjunctiva and sclera normal. Eyelids normal. ENT: TM's Normal. Pharynx normal. Uvula midline. Moist mucous membranes. No trismus noted. No drooling noted. No muffled voice noted. Neck: Normal inspection. Neck supple. FROM. No adenopathy. Thyroid Normal. No meningeal signs. No neck mass noted. CVS: Normal heart rate and rhythm. Heart sound normal. No murmurs noted. Pulses normal throughout. Respiratory: No respiratory distress. Painless inspiration. Breath sounds normal. No wheezes/rales/rhonchi noted. Chest nontender. No accessory muscle usage noted or decreased air movement noted. Abdomen: Soft and nontender. Bowel sounds normal in all 4 quadrants. No distention noted. No organomegaly noted. No visible injury noted. Back: No CVA tenderness. Full range of motion noted. Skin: Skin warm and dry. Normal skin color. Normal skin turgor. No rashes/lesions/lacerations noted. Extremities: Left lower extremities: Deformity to the left ankle with severe tenderness, neurovascularly intact. Neuro: Oriented X 3. Cranial nerve exam: II-XII are grossly intact No motor deficit. No sensory deficit. Reflexes normal. Course Reevaluation(s) Reevaluation #1: A 24-year-old female s/p fracture dislocation of the left ankle, s/p closed reduction with conscious sedation please refer to the procedure note. Patient is in splint now and crutches, will discharge with ortho follow-up. Time: 11:08 Medications Administered Discontinued Medications Generic Name Dose Route Start Last Admin Trade Name Alyssa PRN Reason Stop Dose Admin Lidocaine HCl 10 ml 04/02/24 08:34 04/02/24 09:55 Lidocaine Hcl 1 % Mpf 5 Ml Vial INFILTRATI 04/02/24 08:35 Not Given ONCE ONE Oxycodone HCl 5 mg 04/02/24 08:09 04/02/24 08:19 Oxycodone Hcl Immed Release 5 Mg Tablet PO 04/02/24 08:10 5 mg ONCE ONE Administration Propofol 100 mg 04/02/24 08:58 04/02/24 09:26 Propofol 200 Mg/20 Ml Vial IVPUSH 04/02/24 08:59 50 mg ONCE ONE Administration Medical Decision Making Differential Diagnosis Differential Diagnoses: The differential diagnosis associated with the presentation includes ( Left ankle fracture, left ankle dislocation, left foot ischemia or neurovascular compromise, other extremity injuries, head injury, neck injury, chest injury, abdominal injury.) Admission/Observation Consideration of admission/observation: Escalation of care including admission/observation considered Independent Interpretation I performed an independent interpretation of an: Plain X-Ray ( Left ankle x- ray:Comminuted displaced fractures of the distal tibia and fibula with disruption of the ankle mortise. Postreduction x-ray:Interval reduction in previously displaced trimalleolar ankle fracture. Fracture fragments demonstrate significantly improved anatomical alignment. ) Radiology Impression Discussion of test interpretation with radiology: I have reviewed the radiologist's reading. Procedures Orthopedic Fracture Reduction Fracture #1: Time Out Performed: Yes Side: left Fracture Reduction Location: tibia and fibula Analgesia: procedural sedation Technique: direct manipulation and traction/counter-traction Post Reduction X-rays Demonstrate: anatomical reduction Post-reduction neuro exam: intact Post-reduction vascular exam: intact Splint Applied: Yes Patient Tolerated Procedure: well Procedural Sedation Indication: fracture/dislocation reduction ASA Class: I Time of Last PO Intake: 07:00 IV Propofol dose (mg): 50 Patient Tolerated Procedure: well Complications: none Discharge Plan Discharge Clinical Impression: Ankle fracture, left Patient Disposition: Home, Self-Care Instructions: Ankle Fracture (ED) Prescriptions: No Action Abilify Maintena 400 mg suspension,extended rel syring 400 mg IM QMONTH Patient Comments: Patient reports her last injection was on 09/13/23- administered by nurse at [facility] divalproex 500 mg Tablet Extended Release 24 Hr 1,500 mg PO BEDTIME 30 Days Qty: 90 0RF quetiapine 100 mg Tablet 100 mg PO BEDTIME 30 Days Qty: 30 0RF bupropion HCl 300 mg Tablet Extended Release 24 Hr 300 mg PO QAM amoxicillin-pot clavulanate 875-125 mg tablet 1 tab PO BID 7 Days Qty: 14 0RF ibuprofen 800 mg tablet 800 mg PO Q8H PRN (Reason: pain) Qty: 14 0RF acetaminophen [Tylenol Extra Strength] 500 mg tablet 500 mg PO Q6H PRN (Reason: fever or pain) Qty: 14 0RF lamotrigine 25 mg tablet 25 mg PO BEDTIME Referrals: Jeremie Luz MD [Physician] - Print Language: Hong Konger
--- OUTSIDE RECORDS SUMMARY | 2024-04-02 08:43 | XMS_ITS | Continuity of Care Document ---
Author Organization [facility] ter Address [address] [place] [id number]- Care Team Providers Care Support Service Tech Name Role Phone Not on Staff, PCP Primary Care Physician Unavail able Encounter [facility] Date(s): 11/17/23 - 11/17/[address] [id number]- Encounter Diagnosis Acute hemorrhagic cystitis(Final) - 11/17/23 Discharge Disposition: A-D/C Home Attending Physician: Jerri Ford DO Admitting Physician: Jerri Ford DO Referring Physician: Not on Staff, Referring MD Allergies, Adverse Reactions, Alerts Substance Reaction Severity Status Haldol Active Invega Active Medications benzocaine 5% topical gel 1, Topically, Every 4 hours, PRN Pain , Mild, # 1 each, 0 Refills, Maintenance, 04/27/22 15:04:00 EST, Gel, [facility], Partial fill upon patient request if the prescription is for a schedule II opioid drug., 1 Topically Every 4 hours,x6 day... Start Date: 04/27/22 Stop Date: 05/03/22 Status: Ordered cefpodoxime 100 mg oral tablet 1 tablet = 100 mg, By Mouth, Every 12 hours, for 7 days, # 14 tablet, 0 Refills, Acute 11/24/23 15:05:00 EDT, 11/17/23 15:05:00 EDT, Tablet, [facility]/pharmacy #[id number], Partial fill upon patient request if the prescription is for a schedule II opioid drug., 1... Start Date: 11/17/23 Stop Date: 11/24/23 Status: Ordered divalproex sodium 500 mg oral tablet, extended release 2 tablet = 1,000 mg, By Mouth, Daily at bedtime, # 60 tablet, 1 Refills, Maintenance, 04/27/22 15:04:00 EST, ER Tablet, [facility], Partial fill upon patient request if the prescription is for a schedule II opioid drug., 159, cm, 04/27/22 9:... Start Date: 04/27/22 Stop Date: 06/26/22 Status: Ordered LaMICtal 100 mg oral tablet 100 mg, 1, tablet, By Mouth, Daily, # 30 tablet, Refills 1, Tot. Refills 1, Maintenance, 04/27/22 15:04:00 EST, Route to Pharmacy Electronically, [facility], Partial fill upon patient request if the prescription is for a schedule II opioid d... Start Date: 04/27/22 Stop Date: 06/26/22 Status: Ordered Remeron 15 mg oral tablet 1 tablet = 15 mg, By Mouth, Daily at bedtime, # 30 tablet, 1 Refills, Maintenance, 04/27/22 15:04:00 EST, Tablet, [facility], Partial fill upon patient request if the prescription is for a schedule II opioid drug., 159, cm, 04/27/22 9:41:00... Start Date: 04/27/22 Stop Date: 06/26/22 Status: Ordered traZODone 50 mg oral tablet 50 mg, 1, tablet, By Mouth, Daily at bedtime, PRN, # 30 tablet, Refills 1, Tot. Refills 1, Maintenance, Sleep, 04/27/22 15:04:00 EST, Route to Pharmacy Electronically, [facility], Partial fill upon patient request if the prescription is for... Start Date: 04/27/22 Stop Date: 06/26/22 Status: Ordered Vital Signs Most recent to oldest [Reference Range]: 1 2 Height 168 cm (11/17/23 12:05 PM) 168 cm (11/17/23 11:50 AM) Weight 75 kg (11/17/23 12:05 PM) 75 kg (11/17/23 11:50 AM) Oxygen Saturation [94-100 %] 99 % (11/17/23 11:50 AM) 100 % (11/17/23 11:47 AM) Pulse Rate [55-90 bpm] 76 bpm (11/17/23 11:50 AM) 72 bpm (11/17/23 11:47 AM) Body Mass Index [18.5-24.99 kg/m2] 26.57 kg/m2 *H* (11/17/23 11:50 AM) Blood Pressure [90-138/55-84 mm Hg] 90/5 0mm Hg (11/17/23 11:50 AM) Respiratory Rate [16-30 br/min] 18 br/mi n (11/17/23 11:50 AM) Temperature [96.8-100.4 DegF] 97.9 DegF (11/17/23 11:50 AM) Mode of Delivery (Oxygen) Room air (11/17/23 11:50 AM) Blood pressure sites Arm, left (11/17/23 11:50 AM) Temperature Route Oral (11/17/23 11:50 AM) Dry Weight 75 kg (11/17/23 12:05 PM) 75 kg (11/17/23 11:50 AM) Weight Obtained Via Patient/family state d (11/17/23 11:50 AM) Dry Weight Obtained Via Patient/family s tated (11/17/23 11:50 AM) Patient Care team information Care Team Personnel Name: Not on Staff, PCP Position: S Physician (General Medicine) Member Role: PCP Care Team Related Persons Name: SIGIFREDOCAROLINA Solares Address: home [address] [place] [id number]
[2024-04-02] MEDS: propofoL 200 MG/20 ML VIAL 100 MG IVPUSH (09:26)
--- NOTE | 2024-04-02 09:44 | PC.NURSE ---
patient underwent conscious sedation for left ankle reduction, RT, dye lab technician, RN and DR Combs at bedside. patient VSS normal sinus rhythm. procedure began at 923 after timeout, 50mg propofol given VIA IV, patient immediate sedation, patient was on 2lNC. patient left ankle reduced, patient tolerated well. patient procedure ended ay 925, patient began to slowly wake up, VSS remained. patient now awake, alert and oriented x4, patient states her pain is a 2/10. patient remains on tele monitor, normal sinus rhythm. patient ankle splinted by MD and PA, ankle propped up on blanket roll for support, patient able to move toes. patient is speaking in clear full sentences,
== END 2024-04-02 12:08 | disposition home or self-care (01) ==
PROVIDERS: Emergency Provider Emergency Medicine
DX: S82.892A Other fracture of left lower leg, initial encounter for closed fracture (principal); M25.572 Pain in left ankle and joints of left foot; W10.9XXA Fall (on) (from) unspecified stairs and steps, initial encounter; Y93.89 Activity, other specified; Y92.098 Other place in other non-institutional residence as the place of occurrence of the external cause; Y99.8 Other external cause status; Z79.899 Other long term (current) drug therapy; Z87.891 Personal history of nicotine dependence
CPT/HCPCS: 27752; 73600; 96374; 99284; J2704

== ENCOUNTER 2024-04-10 13:47 | Outpatient (AMB) | payer MEDICAID, SELFPAY ==
--- NOTE | 2024-04-10 14:31 | MHC.OFFVIS ---
Intake Visit Reasons: FC- LT ankle fracture Intake Note: Lauren a 24 year old female who presents today for an ER follow up of left ankle fx, DOI 04/02/24. Patient reports she was going downstairs slipped and ended up falling few steps of stairs twisting her left ankle. She mentions having some mild pain on her foot, however she mentions that her over all pain when it first started was unbearable. Allergies insect venom [MOSQUITO] Allergy (Unknown, Verified 04/02/24 08:12) UNKNOWN paliperidone [From INVEGA] Allergy (Unknown, Verified 04/02/24 08:12) DYSTONIC REACTION haloperidol [HALOPERIDOL] Adverse Reaction (Intermediate, Verified 04/02/24 08:12) Dystonic reaction Medication List - Last Reconciled 04/10/24 by Dodie Garcia PA-C acetaminophen (Tylenol Extra Strength) 500 mg PO Q6H PRN amoxicillin-pot clavulanate 875-125 mg 1 tab PO BID 7 days aripiprazole ER (Abilify Maintena) 400 mg IM QMONTH bupropion HCl XL 300 mg PO QAM divalproex ER 1,500 mg (3 x 500 mg) PO BEDTIME 30 days ibuprofen 800 mg PO Q8H PRN [Kneeling Scooter As directed] lamotrigine 25 mg PO BEDTIME quetiapine 100 mg PO BEDTIME 30 days HPI HPI FC- LT ankle fracture: Details: 24-year-old female who presents to the office today for an ER follow-up of left ankle injury, 04/02/24. She reports she was going downstairs when she slipped and ended up falling few steps of stairs and twisted her ankle. She currently states she has mild pain in her foot however she reports her pain was unbearable when it first started. COUNT INCLUDES THE [facility] Medical History Depression Chronic schizophrenia Bipolar disorder Depression Anxiety Bipolar 1 disorder Social History Household Members: Family Household Members Other:: lives in jail - left 1 week ago Housing: Apartment Housing Other:: jail Do you presently have visiting nurse or other home services: No Alcohol intake: never Comment: M3 Patient Tobacco Use Status: Former Tobacco user Tobacco use type: Cigarette Cigarette Packs Per Day: 0.5 Cigarettes Per Day: 10.0 Years Smoked: 2 years e-Cigarette/Vaping Use: Currently Using Second Hand Smoke Exposure: No Substance Use Type: Marijuana service: No Sexual orientation: Don't Know Review of Systems Const All systems reviewed & are unremarkable except as noted in HPI and below Physical Exam Const General: cooperative, healthy appearing, comfortable, no acute distress, well developed and alert Orientation/consciousness: patient oriented x3 HEENT Head: Yes normal to inspection, Yes normocephalic and Yes atraumatic Eyes General: appearance normal, both eyes and all related structures Resp Effort & Inspection: normal respiratory effort and able to speak in complete sentences Cardio Rate: regular rate Peripheral pulses: Peripheral pulses 2+ throughout GI Palpation (GI): Soft to palpation Skin Lesions: no lesions Rashes: no rashes Neuro General: patient oriented x3 Extrem Other: Left ankle: Skin intact. No open wound. She has severe swelling. Tenderness to palpation along the medial and lateral malleolus. Pulses are present. Office Procedures Casting/Splints [id number] Leg splint application Procedure code (CPT) selection complete Results Reviewed Results Reviewed: Xrays were obtained in the office today and personally reviewed by me of the left ankle show enrike fx with stable reduction Assessment & Plan Assessment & Plan (1) Closed left ankle fracture: Code(s): S82.892A - Other fracture of left lower leg, initial encounter for closed fracture Category: Medical Plan I discussed the case with Dr. Luz. I discussed the extent of the injury to the patient and options available. Given the extent of the fracture pattern and high risk of further displacement, it is recommended that we surgically fix this to help with stability and restoring anatomy. I explained to the patient the procedure in detail along with the risks, benefits and alternatives.? Risks including but not limited to infection, wound breakdown, stiffness, ongoing pain, nonunion or malunion, and possible complications with hardware. She does understand all this and would like to proceed with open reduction internal fixation of the left ankle with Dr. Luz. She will be booked accordingly. Orders: Orders XR ankle LT min 3V Today M25.572 - Pain in left ankle and joints of left foot Medications: New [Kneeling Scooter] As directed 1 ea 0RF duation 99 days S82.892A - Other fracture of left lower leg, initial encounter for closed fracture Patient Instructions: Scribed for Dodie Garcia PA-C, by Bakari Bravo certified medical coding specialist, on 04/10/2024 at 2:15 PM EST.? I, Dodie Garcia PA-C, have personally reviewed and agree with the information entered by the scribe. Coding Level of Care Code New Pt Level 4 (70463) Complex EM visit Add On G2211 Diagnoses Closed left ankle fracture S82.892A CPT Codes Splint - CPT: 26097-Tjuxa Leg splint application ([id number])
== END 2024-04-10 15:04 | disposition home or self-care (01) ==
PROVIDERS: Visit Provider Physician Assistant
DX: S82.852A Displaced trimalleolar fracture of left lower leg, initial encounter for closed fracture (principal)
CPT/HCPCS: 27808; 99204

== ENCOUNTER 2024-04-10 15:22 | Outpatient (REF) | payer MEDICAID, SELFPAY ==
--- NOTE | ~2024-04-10 | XR_ITS ---
EXAMINATION: XR ANKLE LEFT CLINICAL INFORMATION: Pain in left ankle and joints of left foot M25.572. COMPARISON: XR Left ankle 04/02/2024 TECHNIQUE: AP, lateral, and oblique views of the left ankle. FINDINGS: Bimalleolar fracture, fractures at least partially reduced, near-anatomic alignments restored. Cast in place. Ankle mortise is preserved. Talar dome is intact. No new fractures. XR/XR ankle LT min 3V IMPRESSION: 1. Status post reduction, bimalleolar fracture, Near-anatomic alignment restored. 2. Cast in place. Electronically signed by: Josue Cooper MD 05/07/2024 11:52 AM [facility]
== END 2024-04-10 15:23 | disposition home or self-care (01) ==
LOC: HO.HOSX 15:22
PROVIDERS: Visit Provider Physician Assistant
DX: M25.572 Pain in left ankle and joints of left foot (principal); S82.892A Other fracture of left lower leg, initial encounter for closed fracture
CPT/HCPCS: 27808; 73610; 99212

== ENCOUNTER 2024-04-12 09:08 | Day surgery (SDC) | payer MEDICAID, SELFPAY ==
--- NOTE | 2024-04-11 09:23 | HO.ANESPROP2 ---
Documented by User: Linda Greco NP 04/11/24 09:23 HPI - Anesthesia Eval Consult details Narrative: 24yo F for Left Ankle Fracture ORIF PMFSH Active Problems Active Problems: All Active Problems Closed left ankle fracture (Acute) Bipolar 1 disorder, depressed, severe (Acute) Early stage of (Acute) Bipolar 1 disorder (Acute) Chronic post-traumatic stress disorder (PTSD) (Acute) Bipolar 1 disorder (Acute) Eating disorder (Acute) COVID-19 (Acute) Past Medical History Medical History Depression Chronic schizophrenia Bipolar disorder Depression Anxiety Bipolar 1 disorder Social History Social History Household Members: Family Household Members Other:: lives in long term - left 1 week ago Housing: Apartment Housing Other:: long term Do you presently have visiting nurse or other home services: No Alcohol intake: never Comment: M3 Patient Tobacco Use Status: Former Tobacco user Tobacco use type: Cigarette Cigarette Packs Per Day: 0.5 Cigarettes Per Day: 10.0 Years Smoked: 2 years e-Cigarette/Vaping Use: Currently Using Second Hand Smoke Exposure: No Substance Use Type: Marijuana Advance Directives: No Advance Directives Information Provided: Yes service: No Sexual orientation: Don't Know Meds Allergies Allergy/AdvReac Type Severity Reaction Status Date / Time insect venom [MOSQUITO] Allergy Unknown UNKNOWN Verified 04/02/24 08:12 paliperidone [From INVEGA] Allergy Unknown DYSTONIC Verified 04/02/24 08:12 REACTION haloperidol [HALOPERIDOL] AdvReac Intermediate Dystonic Verified 04/02/24 08:12 reaction Home Medications ?Medication ?Instructions ?Recorded ?Confirmed ?Last Taken ?Type lamotrigine 25 mg tablet 25 mg PO BEDTIME 10/09/23 04/12/24 10/08/23 History methylphenidate HCl 10 mg tablet 30 mg PO DAILY 04/12/24 04/12/24 04/12/24 07:30 History Assessment and Plan Assessment Anesthesia Assessment: Chart Reviewed Documented by User: Felicia Banks MD 04/12/24 11:14 [facility] Past Medical History Medical History Depression Chronic schizophrenia Bipolar disorder Depression Anxiety Bipolar 1 disorder Family History Family history of problems with anesthesia: No Surgical History History of Problems with Anesthesia: No Social History Social History Household Members: Family Household Members Other:: lives in long term - left 1 week ago Housing: Apartment Housing Other:: long term Do you presently have visiting nurse or other home services: No Alcohol intake: never Comment: M3 Patient Tobacco Use Status: Former Tobacco user Tobacco use type: Cigarette Cigarette Packs Per Day: 0.5 Cigarettes Per Day: 10.0 Years Smoked: 2 years e-Cigarette/Vaping Use: Currently Using Second Hand Smoke Exposure: No Substance Use Type: Marijuana Advance Directives: No Advance Directives Information Provided: Yes service: No Sexual orientation: Don't Know Meds Allergies Allergy/AdvReac Type Severity Reaction Status Date / Time insect venom [MOSQUITO] Allergy Unknown UNKNOWN Verified 04/02/24 08:12 paliperidone [From INVEGA] Allergy Unknown DYSTONIC Verified 04/02/24 08:12 REACTION haloperidol [HALOPERIDOL] AdvReac Intermediate Dystonic Verified 04/02/24 08:12 reaction Home Medications ?Medication ?Instructions ?Recorded ?Confirmed ?Last Taken ?Type lamotrigine 25 mg tablet 25 mg PO BEDTIME 10/09/23 04/12/24 10/08/23 History methylphenidate HCl 10 mg tablet 30 mg PO DAILY 04/12/24 04/12/24 04/12/24 07:30 History Exam Airway Mallampati Class: II TM Dist: >3cm Neck ROM: Full Heart: rrr Lungs: cta Assessment and Plan Assessment Anesthesia Assessment: Anesthesia Plan Discussed Final Anesthetic Review Family History of Problems with Anesthesia: No History of Problems with Anesthesia: No NPO: Yes ASA Class: III Final Preanesthetic Review: No Changes in Pt Med Stat, Meds/Allgs Chart Reviewed, Consent Obtained/Reviewed and Anes Risks/Benef Reviewed Patient Risk: Intermediate Procedure Risk: Intermediate Anesthetic Plan Anesthetic Plan: GA and Regional Block Disposition: Standard PACU
[2024-04-12] VITALS (10 sets, daily range): BP systolic 97–110; BP diastolic 43–70; PULSE 86–103; RESP 16–20; TEMP 36.1–36.8; O2SAT 96–100; BMI 23.2
--- NOTE | ~2024-04-12 | FL_ITS ---
EXAMINATION: FLUORO GUIDANCE IN OR CLINICAL INFORMATION: Left ankle ORIF. COMPARISON: None available. TECHNIQUE: Fluoroscopy supervised by: Dr. Jeremie Luz. Fluoroscopy time: 0.6 minutes. Cumulative Dose: 1.82 mGy. DAP: 0.0316 mGy-m2 (milligray-meter squared). Images: 11. FINDINGS: Sequential imaging demonstrates placement of a lateral plate and screw device along the distal fibula with 2 screws placed through the medial malleolus . Some horizontal ghost tracks are seen through the distal tibia and fibula FL/FL guidance in OR IMPRESSION: Fluoroscopy during procedure. Please see procedure report for additional information. Electronically signed by: Percy Ovalles MD 06/07/2024 04:27 PM [facility]
[2024-04-12 11:24] LABS: UPreg QC Valid YES; Urine Pregnancy NEGATIVE (NEGATIVE)
[2024-04-12] MEDS: Lactated Ringers 1,000 ML 100 ML IVCONT (11:59)
--- NOTE | 2024-04-12 12:03 | MHC.SHP ---
Pre-Procedural Eval Section A - 24 Hr Update-Section A only Date of Service: 04/12/24 The patient is an INPATIENT: No Changes since office visit: No Cold of Flu in the past 2 weeks, No New Medical Problems, No Changes in Medication and No Patient answered all questions The patient has been examined within 24 hours of the surgical procedure. The History & Physical has been completed within 30 days and I have reviewed it.: Yes Section B - Complete if H&P > 30 days Chief Complaint: Displaced trimalleolar fracture of left lower leg, Allergies: Allergies Allergy/AdvReac Type Severity Reaction Status Date / Time insect venom [MOSQUITO] Allergy Unknown UNKNOWN Verified 04/02/24 08:12 paliperidone [From INVEGA] Allergy Unknown DYSTONIC Verified 04/02/24 08:12 REACTION haloperidol [HALOPERIDOL] AdvReac Intermediate Dystonic Verified 04/02/24 08:12 reaction Plan I have reviewed the history and physical and performed a pertinent physical examination on my patient. No changes have occurred unless specified. Time Spent With Patient Time: Total time managing care of this patient today ____ minutes.
--- NOTE | 2024-04-12 16:02 | P.BOP_ITS ---
Brief Operative Note Date of Service: 04/12/24 Pre-op diagnosis: left ankle trimal Post-op diagnosis: same Procedure: ORIF enrike ORIF syndesmosis Implants: Sieper 1/3 tubular 9 hole plate with 3 non locking and one locking Sieper 4.0 partially threaded cancellous screws x 2 [facility] syndesmosi Cinch x 2 Surgeon: Jeremie Luz MD Anesthesia: GETA and regional Was an Chain Builder used for this Procedure?: Yes Chain Builder: Bela Lopez Estimated blood loss (mL): 20 Tourniquet time (min): 60 IV fluids (mL): 1,000 Pathology: none sent Condition: stable Disposition: PACU
--- NOTE | 2024-04-12 16:04 | W.PM.OPN ---
Operative Note Operative Note Date of Service: 04/12/24 Narrative: Date of Service: 04/12/24 Pre-op diagnosis: left ankle trimal Post-op diagnosis: same Procedure: ORIF enrike ORIF syndesmosis Implants: Greenfield 1/3 tubular 9 hole plate with 3 non locking and one locking Greenfield 4.0 partially threaded cancellous screws x 2 [employer] syndesmosi Cinch x 2 Surgeon: Jeremie Luz MD Anesthesia: GETA and regional Was an Microbiology Coordinator used for this Procedure?: Yes Microbiology Coordinator: Bela Lopez Estimated blood loss (mL): 20 Tourniquet time (min): 60 IV fluids (mL): 1,000 Pathology: none sent Condition: stable Disposition: PACU Procedure in detail: Patient was brought to the operating room and placed supine on the operative table. All bony prominences were well padded and a time-out was called to identify proper site proper procedure proper surgeon. IV antibiotics per weight were administered. I began by exsanguinating limb is slightly tourniquet to 300 mm Hg. She had a high fibula fracture with a nondisplaced medial malleolus. In order to avoid a incision over the peroneal nerve I made a distal incision over the physeal scar and inserted a 9 hole 1/3 tubular plate the fibular shaft. Using biplanar fluoroscopy I confirmed accurate plate location and then made a 2 cm incision over the proximal aspect of the plate. I spread bluntly down in front of the peroneal tendons and down to the plate. The nerve was not encountered. I then placed 3 12 mm nonlocking screws in standard AO fashion from lateral to medial. Again biplanar fluoroscopy was used to confirm reduction and hardware position. Once I was satisfied proximally I turned my attention to the distal aspect of the plate. I placed 1 12 mm locking screw distally and then drilled from lateral to medial and slightly posterior to anterior two [employer] syndesmosis cinches. Neal incisions were made medially and the buttons were flipped and then the cinches were tightened down into the distal 2 holes of the 1/3 tubular plate. I was satisfied with the hardware alignment and reduction of the syndesmosis. This was stable on external rotation stress testing. Prior to the insertion of the meniscal cinches I made a oblique incision over the medial malleolus and using standard technique 240 mm partially threaded cancellous screws were inserted from distal to medial and slightly anterior to posterior. These were placed in parallel on both anterior and lateral radiographs. The medial malleolus fracture was nondisplaced but I felt this was prudent given the possibility of displacement. In addition there was a small posterior malleolar fracture that was minimally displaced and not addressed. This syndesmosis was tested using external rotation test and was found to be stable. All instrumentation was removed and copious irrigation was performed. Absorbable suture and toña were used for closure and the patient was placed into sterile dressings and a well-padded posterior splint. Tourniquet was let down and the patient was extubated brought to recovery room in stable condition there were no known complications.
--- NOTE | 2024-04-12 19:26 | PHA.MEDREC ---
Pharmacy Consult ? Medication Reconciliation Pharmacy has reviewed the medication reconciliation done by nursing. Spoke to patient to confirm med list. Patient states she is taking Lamotrigine 100 NOT 25 mg and Quetiapine 100 mg NOT 50 mg.
[2024-04-12] MEDS: QUEtiapine Fumarate 100 MG TABLET PO (21:27)
[2024-04-12] MEDS: Divalproex Sodium ER 500 MG TAB.ER.24H 1500 MG PO (21:27)
[2024-04-13 03:31] VITALS: BP 111/58; PULSE 59; RESP 18; TEMP 36.6; O2SAT 97
--- NOTE | 2024-04-13 07:42 | P.PNOP_ITS ---
Subjective Subjective Date of Service: 04/13/24 Interval history: 24-year-old female who is postop day 1 status post left ankle ORIF Patient resting comfortably in bed this morning Pain well managed No acute events overnight Of note, patient states that she has been told that she can not return to the [place] [facility] where she was previously residing, as they state they are unable to take care of her with this injury Patient states that she will need potential placement at rehab or another facility where she can be taken care of No other acute complaints or concerns at this time Physical Exam Vital Signs: Vital Signs: Last Vital Signs Temp 97.8 F 04/13/24 03:31 Pulse 59 04/13/24 03:31 Resp 18 04/13/24 03:31 BP 111/58 L 04/13/24 03:31 Pulse Ox 97 04/13/24 03:31 O2 Del Method Room Air 04/13/24 03:31 BMI result Body Mass Index 23.2 Extrem: Other: Splint on left ankle clean, dry, intact Distal sensation Capillary refill brisk Procedures Date of Service Date of Service: 04/13/24 Progress Note: A&P Assessment and plan (1) Closed left ankle fracture: Status: Acute Plan Continue pain mgmnt PTfor left hip lew Dispo planning-pain management, case management for placement as [place] [facility] can not take her back current condition Keep splint clean, dry, intact at all times Nonweightbearing on left lower extremity Time Spent With Patient Time: Total time managing care of this patient today ____ minutes. Quality Stroke Does the patient have a stroke diagnosis?: No VTE Prior VTE?: No VTE Risk Level:: Surgical - moderate VTE Device Contraindication: N/A - Device Ordered VTE Drug Contraindication: Treatment Not Indicated
[2024-04-13 08:29] VITALS: BP 91/54; PULSE 78; RESP 12; TEMP 37; O2SAT 99
--- NOTE | 2024-04-13 08:55 | HO.POSTANES ---
Post Anesthesia Evaluation Post Anesthesia Evaluation Date of Service: 04/13/24 Vital Signs: Vital Signs Temp Pulse Resp BP Pulse Ox O2 Del Method 04/13/24 08:29 98.6 F 78 12 91/54 L 99 Room Air 04/13/24 03:31 97.8 F 59 18 111/58 L 97 Room Air Anesthesia: Nerve Block and General Mental Status: Awake Pain Control: Satisfactory Nausea/Vomiting: None Hydration: Adequate Anesthesia-Related Issues: No Anes. Related Issues
--- NOTE | 2024-04-13 09:26 | MHC.CM.PN ---
Addendum entered by Pilar Caballero RN 04/13/24 16:06: PER ORTHO, DC ON HOLD & PATIENT REPORTING TO ORTHO TEAM SHE DOES NOT FEEL SAFE TO DC. THIS CM AND DOUGIE CM MET WITH PATIENT AT BEDSIDE. PATIENT REPORTS SHE FEELS SHE CAN MANAGE PHYSICALLY, BUT ISN'T HAPPY W/ CURRENT LIVING ARRANGEMENTS AND THERE IS A HOUSEMATE SHE FEELS UNCOMFORTABLE WITH. REPORTS SHE DOES NOT HAVE ANY FRIENDS/FAMILY SHE CAN STAY WITH OR ANYWHERE ELSE TO GO. PATIENT UNDERSTANDS SHE DOES NOT QUALIFY FOR ACUTE REHAB AT THIS TIME, AND STATES SHE DOES NOT WANT INPATIENT REHAB. CM WILL FOLLOW UP WITH [facility] ABOUT PATIENT'S CONCERNS TOMORROW. Addendum entered by Pilar Caballero RN 04/13/24 13:31: PATIENT CLEARED ON STAIRS AND REPORTS SHE IS FEELING COMFORTABLE AND CONFIDENT WITH CRUTCHES. PER ORTHO WILL DC THIS AFTERNOON. BLS SCHEDULED FOR 4PM PER PATIENT REQUEST. [facility] CABLE WAY OPERATOR AND RN MADE AWARE. Addendum entered by Pilar Caballero RN 04/13/24 11:44: *CORRECTION - UNABLE TO HAVE HOME PT, PATIENT DOES NOT HAVE PCP. CM SPOKE W/ FLORENC[facility], CABLE WAY OPERATOR AND NORM GOMES RN. OK TO RETURN TO [facility] WHEN CLEARED BY ORTHO. PATIENT IS AGREEABLE TO THIS PLAN. WOULD LIKE TO WORK W/ PHYSICAL THERAPY ON STAIRS NOW. PT AWARE. MIREYA ZHENG RN- PHONE: [phone] & [phone], FAX: [phone] [place] CABLE [address] OPERATOR: [phone] PROGRAM HOUSE: [phone] Original Note: PATIENT LIVES IN A [facility] X1 MONTH. FUNCTIONALLY [facility] PRIOR TO INJURY. NOW W/ CRUTCHES AND NWB TO LLE. MENTAL HEALTH SERVICES INCLUDING PEER SUPPORT THROUGH [facility]. NO PCP - BROCHURE PROVIDED. NO HCP. CM PROVIDED EDUCATION AND OFFERED ASSISTANCE. DP: PT REC OUTPATIENT SERVICES VS HOME PT. PATIENT BELIEVES [facility] MAY NOT ACCEPT BACK. AWAITING CALL BACK FROM HEALTH CARE MANAGER, PATIENT IS MEDICALLY CLEARED. REFERRAL TO [facility] FOR HOME PT.
[2024-04-13] MEDS: Methylphenidate HCl 10 MG TABLET 30 MG PO (09:42)
--- NOTE | 2024-04-13 09:47 | PC.NURSE ---
pt c/o numbness w/ tingling to LLE, cant move toes but can raise leg, cannot feel me touch her toes. md informed. pt also stated she takes lamictol at 2100 at home
[2024-04-13 10:02] LABS: MANUAL DIFF FLAG NO
[2024-04-13 10:16] LABS: Basophils Percent Auto 0.2 % (0-2); Hematocrit 37.9 % (37.0-47.0); Imm Gran Abs Auto 0.04 X10*3/uL (0.00-0.03); Imm Gran Pct Auto 0.4 % (0.0-0.4); Lymphocytes Absolute Auto 1.7 X10*3/uL (1.2-4.9); Lymphocytes Percent Auto 15.5 % (20-40); Mean Corpuscular HGB Conc 34.3 g/dl (31.0-35.0); Mean Corpuscular Volume 90.5 fL (80.0-98.0); Mean Platelet Volume 9.9 fL (9.4-12.3); Monocytes Absolute Auto 0.4 X10*3/uL (0.1-1.2); Monocytes Percent Auto 3.2 % (2-11); Neutrophils Percent Auto 80.7 % (45-73); Platelet Count 292 X10*3/uL (160-400); Red Blood Count 4.19 X10*6/uL (4.20-5.50); White Blood Count 11.2 X10*3/uL (4.8-10.8)
[2024-04-13 10:22] LABS: Anion Gap 13 (12-20); Blood Urea Nitrogen 10 mg/dL (9-16); Calcium 9.1 mg/dL (8.4-10.2); Carbon Dioxide 24 mmol/L (22-29); Chloride 108 mmol/L (96-108); Creatinine Clr Calc Pharmacy 124.9; Estimated Glomerular Filt Rate > 60; Glucose Random 130 mg/dL (60-115); Potassium 3.8 mmol/L (3.3-5.1); Sodium 141 mmol/L (135-145)
--- NOTE | 2024-04-13 14:06 | PM.DS ---
DS: Providers Provider Date of Service: 04/13/24 Primary care physician: None Physician Consults: 04/13/24 08:12 Consult to Case Management Routine Comment: Pt states [place] [facility] cannot take her back w/splint DS: Diagnosis Discharge Diagnosis (1) Closed left ankle fracture: Status: Acute DS: Summary Hospital Course Hospital Course: Patient underwent ORIF of left ankle on 04/12/2024. While in the hospital, her pain was well-controlled and there were no other acute issues. H&H stable at 13.0/37.9. Vital signs stable at baseline, afebrile at 98.6 degrees F. patient worked with Physical therapy, who recommended discharge home with outpatient PT. Patient was placed in a splint after surgery, and the splint is to remain clean, dry, and intact until follow-up appointment. You have a follow-up appointment booked with our office on 04/20/2024 at 11:15 with Bela Lopez PA-C Status at Discharge Cognitive/behavioral status at discharge: Stable for discharge Time Attestation Discharge Coordination Time (in mins): 30 Quality: Safe Use of Opioids Does Pt have an Active Cancer Diagnosis on the Problem List?: No Quality: Stroke Does the patient have a stroke diagnosis?: No Physical Exam Vital Signs: Vital Signs: Last Vital Signs Temp 98.6 F 04/13/24 08:29 Pulse 78 04/13/24 08:29 Resp 12 04/13/24 08:29 BP 91/54 L 04/13/24 08:29 Pulse Ox 99 04/13/24 08:29 O2 Del Method Room Air 04/13/24 08:29 BMI result Body Mass Index 23.2 Extrem: Other: Splint on left ankle clean, dry, intact Distal sensation diminished due to block Capillary refill brisk DS: Data Data Completed and Pending Labs on day of discharge: Laboratory Results - last 24 hr 04/13/24 09:33 WBC 11.2 H RBC 4.19 L Hgb 13.0 Hct 37.9 MCV 90.5 MCH 31.0 MCHC 34.3 RDW 12.0 Plt Count 292 D MPV 9.9 Immature Gran % (Auto) 0.4 Neut % (Auto) 80.7 H Lymph % (Auto) 15.5 L Blair % (Auto) 3.2 Eos % (Auto) 0.0 Baso % (Auto) 0.2 Lymph # (Auto) 1.7 Blair # (Auto) 0.4 Eos # (Auto) 0.0 Baso # (Auto) 0.0 Abs Immat Gran (auto) 0.04 H Absolute Neuts (auto) 9.0 H Absolute Nucleated RBC 0.000 Nucleated RBC % (auto) 0.0 Sodium 141 Potassium 3.8 Chloride 108 Carbon Dioxide 24 Anion Gap 13 BUN 10 Creatinine 0.65 Estim Creat Clear Calc 124.9 Estimated GFR > 60 Random Glucose 130 H Calcium 9.1 D Discharge Plan Discharge Patient Disposition: Home, Self-Care Referrals: Bela Lopez PA-C [Physician [facility]] - 04/11/24 11:15 am Discharge Medications: Continued divalproex 500 mg Tablet Extended Release 24 Hr 1,500 mg PO BEDTIME 30 Days Qty: 90 0RF quetiapine 100 mg Tablet 100 mg PO BEDTIME 30 Days Qty: 30 0RF (DME) Kneeling Scooter See Rx Instructions .ROUTE .MEDSUPPLY Qty: 1 0RF Rx Instructions: As directed Discontinued ibuprofen 800 mg tablet 800 mg PO Q8H PRN (Reason: pain) Qty: 14 0RF acetaminophen [Tylenol Extra Strength] 500 mg tablet 500 mg PO Q6H PRN (Reason: fever or pain) Qty: 14 0RF No Action methylphenidate HCl 10 mg tablet 30 mg PO DAILY oxycodone-acetaminophen 5-325 mg tablet 1 tab PO Q4-6H PRN (Reason: pain) lamotrigine 100 mg tablet 100 mg PO DAILY Discharge Orders: Discharge Order (Routine); Ordered 04/13/24 Ordered By: Jim Patel Diet: Advance to usual diet Activity on Discharge: Walk with crutches Activity Restrictions/Additional Instructions: Keep splint clean, dry, and intact Elevate throughout the day Do not bathe or shower--keep splint dry Take Percocet 5/325mg tabs 1 tab by mouth every 4-6 hours as needed Call [facility] orthopedics with any questions or concerns. Follow up with orthopedics in 7-10 days post op Print Language: Ghanaian
[2024-04-13 14:59] VITALS: BP 104/59
[2024-04-13 15:57] VITALS: BP 102/56; PULSE 115; RESP 18; TEMP 36.7; O2SAT 99
[2024-04-13] MEDS: oxyCODONE HCl Immed Release 5 MG TABLET PO ×2 (16:11→21:06)
--- NOTE | 2024-04-13 18:36 | PC.NURSE ---
Pt informed she is being d/c'ed around 1600. Pt stated she did not feel safe to return where she came from and did not want to be d/c'ed. CM was informed. PA informed this RN afterwards that pt is not being d/c'ed today. Pt voiding w/o complications. pt able to get OOB w/ standby assist to bedside commode w/ crutches
[2024-04-13 20:00] VITALS: BP 116/67; PULSE 107; RESP 18; TEMP 36.4; O2SAT 98
[2024-04-13] MEDS: lamoTRIgine 100 MG TABLET PO (21:06)
[2024-04-13] MEDS: Divalproex Sodium ER 500 MG TAB.ER.24H 1500 MG PO (21:06)
[2024-04-13] MEDS: QUEtiapine Fumarate 100 MG TABLET PO (21:06)
[2024-04-14 03:56] VITALS: BP 118/55; PULSE 97; RESP 18; TEMP 36.9; O2SAT 98
[2024-04-14] MEDS: oxyCODONE HCl Immed Release 5 MG TABLET PO ×2 (05:49→15:30)
[2024-04-14 06:12] LABS: MANUAL DIFF FLAG NO
[2024-04-14 06:36] LABS: Anion Gap 12 (12-20); Blood Urea Nitrogen 10 mg/dL (9-16); Calcium 8.6 mg/dL (8.4-10.2); Carbon Dioxide 24 mmol/L (22-29); Chloride 109 mmol/L (96-108); Creatinine Clr Calc Pharmacy 133.1; Estimated Glomerular Filt Rate > 60; Glucose Random 137 mg/dL (60-115); Potassium 3.8 mmol/L (3.3-5.1); Sodium 141 mmol/L (135-145)
[2024-04-14 07:15] LABS: Basophils Percent Auto 0.4 % (0-2); Eosinophils Percent Auto 0.3 % (0-4); Hematocrit 33.8 % (37.0-47.0); Hemoglobin 11.2 g/dl (12.0-16.0); Imm Gran Abs Auto 0.02 X10*3/uL (0.00-0.03); Imm Gran Pct Auto 0.3 % (0.0-0.4); Lymphocytes Absolute Auto 2.9 X10*3/uL (1.2-4.9); Lymphocytes Percent Auto 37.9 % (20-40); Mean Corpuscular HGB Conc 33.1 g/dl (31.0-35.0); Mean Corpuscular Hemoglobin 30.5 pg (27.0-33.0); Mean Corpuscular Volume 92.1 fL (80.0-98.0); Monocytes Absolute Auto 0.6 X10*3/uL (0.1-1.2); Monocytes Percent Auto 7.8 % (2-11); Neutrophils Percent Auto 53.3 % (45-73); Platelet Count 235 X10*3/uL (160-400); Red Blood Count 3.67 X10*6/uL (4.20-5.50); Red Cell Distribution Width 12.3 % (11.0-16.0); White Blood Count 7.5 X10*3/uL (4.8-10.8)
[2024-04-14 08:08] VITALS: BP 114/69; PULSE 92; RESP 12; TEMP 36.4; O2SAT 99
[2024-04-14] MEDS: Methylphenidate HCl 10 MG TABLET 30 MG PO (09:26)
--- NOTE | 2024-04-14 10:37 | MHC.CM.PN ---
Addendum entered by Pilar Caballero RN 04/14/24 14:21: Aunt no longer to provide transport. BLS scheduled per patient request. supervisor treating and pumping time 5pm. RN and patient aware. Addendum entered by Pilar Caballero RN 04/14/24 12:09: Patient requested to meet with this CM again re: discharge plan. Per program, she is unable to stay with aunt for 6 weeks and then return, would need to disenroll and then reapply. After extensive discussion with patient and occupational therapy program director via telephone patient prefers to return to program. She verbalizes again that she feels confident she can manage her physical needs. She addressed housemate concerns w/ occupational therapy program director and feels comfortable w/ plan. Aunt will poultry picker patient, plan for patient to spend a few hours with aunt and then return to program. OK'd by occupational therapy program director Omaira. Pain meds were delivered to bedside by pharmacy. space sciences director is aware and meds will be stored in a locked cabinet and administered by program staff. Addendum entered by Pilar Caballeor RN 04/14/24 10:43: Madeline PA also aware. Patient reports she will inform [facility] independent living program of her new living arrangements. Original Note: CM met with patient at bedside to discuss dc plan. Patient spoke with her aunt last night and was able to make a plan to stay there while recovering. CM spoke with Aunt (Cevon [phone]) who is agreeable to plan and can provide physical assistance when needed and rides to outpatient PT. Aunt will provide transport home around 1130am. RN aware.
--- NOTE | 2024-04-14 10:38 | P.DS_ITS ---
DS: Providers Provider Date of Service: 04/14/24 Primary care physician: None Physician Consults: 04/13/24 08:12 Consult to Case Management Routine Comment: Pt states [facility] her [facility] w/splint DS: Diagnosis Discharge Diagnosis (1) Closed left ankle fracture: Status: Acute DS: Summary Hospital Course Hospital Course: Patient underwent ORIF of left ankle on 04/12/2024. While in the hospital, her pain was well-controlled and there were no other acute issues. H&H stable at 13.0/37.9. Vital signs stable at baseline, afebrile at 98.6 degrees F. patient worked with Physical therapy, who recommended discharge home with outpatient PT. Patient was placed in a splint after surgery, and the splint is to remain clean, dry, and intact until follow-up appointment. You have a follow-up appointment booked with our office on 04/20/2024 at 11:15 with Bela Lopez PA-C Time Attestation Discharge Coordination Time (in mins): 30 Quality: Safe Use of Opioids Does Pt have an Active Cancer Diagnosis on the Problem List?: No Quality: Stroke Does the patient have a stroke diagnosis?: No Physical Exam Vital Signs: Vital Signs: Last Vital Signs Temp 97.5 F 04/14/24 08:08 Pulse 92 04/14/24 08:08 Resp 12 04/14/24 08:08 BP 114/69 04/14/24 08:08 Pulse Ox 99 04/14/24 08:08 O2 Del Method Room Air 04/14/24 08:08 BMI result Body Mass Index 23.2 Extrem: Other: left ankle splint is c/d/i. Able to move digits. Sensation reportedly intact. Capillary refill is brisk. DS: Data Data Completed and Pending Labs on day of discharge: Laboratory Results - last 24 hr 04/14/24 05:40 WBC 7.5 RBC 3.67 L Hgb 11.2 L Hct 33.8 L MCV 92.1 MCH 30.5 MCHC 33.1 RDW 12.3 Plt Count 235 MPV 10.0 Immature Gran % (Auto) 0.3 Neut % (Auto) 53.3 Lymph % (Auto) 37.9 [place] % (Auto) 7.8 Eos % (Auto) 0.3 Baso % (Auto) 0.4 Lymph # (Auto) 2.9 [place] # (Auto) 0.6 Eos # (Auto) 0.0 Baso # (Auto) 0.0 Abs Immat Gran (auto) 0.02 Absolute Neuts (auto) 4.0 Absolute Nucleated RBC 0.000 Nucleated RBC % (auto) 0.0 Sodium 141 Potassium 3.8 Chloride 109 H Carbon Dioxide 24 Anion Gap 12 BUN 10 Creatinine 0.61 Estim Creat Clear Calc 133.1 Estimated GFR > 60 Random Glucose 137 H Calcium 8.6 Discharge Plan Discharge Patient Disposition: Home, Self-Care Referrals: Bela Lopez PA-C [Physician Manager Statistical] - 04/20/24 11:15 am Discharge Medications: New oxycodone 5 mg Tablet 5 mg PO Q4H PRN (Reason: Pain, Moderate(Pain Scale 4-6)) 7 Days Qty: 42 0RF Rx Instructions: Partial Fill upon patient request. Continued divalproex 500 mg Tablet Extended Release 24 Hr 1,500 mg PO BEDTIME 30 Days Qty: 90 0RF quetiapine 100 mg Tablet 100 mg PO BEDTIME 30 Days Qty: 30 0RF methylphenidate HCl 10 mg tablet 30 mg PO DAILY (DME) Kneeling Scooter See Rx Instructions .ROUTE .MEDSUPPLY Qty: 1 0RF Rx Instructions: As directed Discontinued ibuprofen 800 mg tablet 800 mg PO Q8H PRN (Reason: pain) Qty: 14 0RF acetaminophen [Tylenol Extra Strength] 500 mg tablet 500 mg PO Q6H PRN (Reason: fever or pain) Qty: 14 0RF oxycodone-acetaminophen 5-325 mg tablet 1 tab PO Q4-6H PRN (Reason: pain) No Action lamotrigine 100 mg tablet 100 mg PO DAILY Discharge Orders: Discharge Order (Routine); Ordered 04/14/24 Ordered By: Bela Lopez Diet: Advance to usual diet Activity on Discharge: Walk with crutches Activity Restrictions/Additional Instructions: Keep splint clean, dry, and intact Elevate throughout the day Nonweightbearing left lower extremity Do not bathe or shower--keep splint dry Take Percocet 5/325mg tabs 1 tab by mouth every 4-6 hours as needed Call [facility] orthopedics with any questions or concerns. Follow up with orthopedics in 7-10 days post op Print Language: [place] Islander
[2024-04-14 16:18] VITALS: BP 116/72; PULSE 114; RESP 12; TEMP 36.6; O2SAT 100
[2024-04-14] MEDS: lamoTRIgine 100 MG TABLET PO (20:32)
[2024-04-14] MEDS: QUEtiapine Fumarate 100 MG TABLET PO (20:32)
[2024-04-14] MEDS: Divalproex Sodium ER 500 MG TAB.ER.24H 1500 MG PO (20:32)
== END 2024-04-14 21:00 | disposition home or self-care (01) ==
LOC: HO.SSS 09:09 → HO.S3 17:04
PROVIDERS: Nurse Practitioner; Visit Provider Orthopaedic Surgery
PROC: (CPT 27814; principal; 2024-04-12 13:50)
DX: S82.832A Other fracture of upper and lower end of left fibula, initial encounter for closed fracture (principal); S82.55XA Nondisplaced fracture of medial malleolus of left tibia, initial encounter for closed fracture; M25.572 Pain in left ankle and joints of left foot; W10.8XXA Fall (on) (from) other stairs and steps, initial encounter; Y93.01 Activity, walking, marching and hiking; Y92.9 Unspecified place or not applicable; Y99.9 Unspecified external cause status; F31.9 Bipolar disorder, unspecified; F20.9 Schizophrenia, unspecified; F41.9 Anxiety disorder, unspecified; Z79.1 Long term (current) use of non-steroidal anti-inflammatories (NSAID); Z79.899 Other long term (current) drug therapy; Z88.8 Allergy status to other drugs, medicaments and biological substances; Z87.891 Personal history of nicotine dependence
CPT/HCPCS: 27814; 27829; 36415; 80048; 81025; 85025; 97116; 97161; C1713; J0131; J0171; J0665; J0690; J1100; J1885; J2003; J2250; J2371; J2405; J2704; J3010

== ENCOUNTER → 2024-04-12 09:08 | Outpatient (BNV) | payer MEDICAID, SELFPAY | PROVIDERS: Visit Provider Orthopaedic Surgery | DX: S82.892A Other fracture of left lower leg, initial encounter for closed fracture (principal) | CPT/HCPCS: 27822; 27829; 99024; 99238 ==

== ENCOUNTER 2024-04-20 11:05 | Outpatient (REF) | payer MEDICAID, SELFPAY ==
--- NOTE | ~2024-04-20 | XR_ITS ---
EXAMINATION: XR LEFT ANKLE CLINICAL INFORMATION: Pain in unspecified ankle and joints of unspecified foot M25.579. COMPARISON: XR Left ankle 04/10/2024 TECHNIQUE: AP, lateral, and mortise views of the left ankle. FINDINGS: Orthopedic dressing in place Skin toña noted. Plate and screw fixation along the distal fibula crossing the previously noted fracture with alignment slightly improved. Screws extend through the distal medial tibia and mid medial malleolus fracture with anatomic/near-anatomic alignment similar to prior. Talocrural joint intact. Remaining bones joints and soft tissues unremarkable. XR/XR ankle LT min 3V IMPRESSION: Postoperative changes with stable alignment compared with the post reduction radiographs of 04/10/2024. Overall marked improvement in the alignment compared with the prereduction radiographs 04/02/2024 Electronically signed by: Harman Monroy MD 05/01/2024 08:04 AM ADRIANE
== END 2024-04-20 11:06 | disposition home or self-care (01) ==
LOC: HO.HOSX 11:05
PROVIDERS: Visit Provider Physician Assistant
DX: M25.572 Pain in left ankle and joints of left foot (principal); S82.892D Other fracture of left lower leg, subsequent encounter for closed fracture with routine healing; Z98.890 Other specified postprocedural states
CPT/HCPCS: 29515; 73610; 99212

== ENCOUNTER 2024-04-20 11:05 | Outpatient (AMB) | payer MEDICAID, SELFPAY ==
--- NOTE | 2024-04-20 11:09 | MHC.OFFVIS ---
Intake Visit Reasons: PO LT ankle ORIF 04/12/24 NE Intake Note: Lauren is a 24 year old female who presents today for a post op appointment s/p LT ankle ORIF enrike, syndesmosis 04/12/24 NE. Patient reports she is having sharp stabbing pain. She informed me that on 04/16/24 she braced her self from a fall leading her to put weight on her left ankle. Patient has been trying to elevate her ankle and trying to keep weight off of it. Allergies insect venom [MOSQUITO] Allergy (Unknown, Verified 04/20/24 11:16) UNKNOWN paliperidone [From INVEGA] Allergy (Unknown, Verified 04/20/24 11:16) DYSTONIC REACTION haloperidol [HALOPERIDOL] Adverse Reaction (Intermediate, Verified 04/20/24 11:16) Dystonic reaction HPI HPI PO LT ankle ORIF 04/12/24 NE: Details: 24-year-old female who presents in the office today 8 days status post left bimalleolar and syndesmosis ORIF which was performed on 04/12/[address] Luz. While in the office today, the patient reports experiencing sharp stabbing pain in the left ankle. She mentions that she braced herself from a fall on 04/16/24 resulting in putting weight on her left ankle. She has been attempting to elevate and to remain non-weight bearing on the left ankle. [facility] Medical History Depression Chronic schizophrenia Bipolar disorder Depression Anxiety Bipolar 1 disorder Social History Household Members: Other Household Members Other:: staff, roommates Housing: House Housing Other:: fpc. 3 stairs Are you a primary respiratory care faculty to a significant other at home: No Do you presently have visiting nurse or other home services: No Alcohol intake: never Comment: M3 Patient Tobacco Use Status: Current everyday Tobacco user Tobacco use type: Cigarette Cigarette Packs Per Day: 0.5 Cigarettes Per Day: 5 Years Smoked: 2 years e-Cigarette/Vaping Use: Currently Using Second Hand Smoke Exposure: No Substance Use Type: Marijuana service: No Sexual orientation: Don't Know Review of Systems Const All systems reviewed & are unremarkable except as noted in HPI and below Physical Exam Const General: cooperative, healthy appearing and no acute distress Resp Effort & Inspection: normal respiratory effort and able to speak in complete sentences Cardio Rate: regular rate Peripheral pulses: Peripheral pulses 2+ throughout GI Palpation (GI): Soft to palpation Skin Lesions: no lesions Rashes: no rashes Extrem Other: Left ankle: Incision sites are clean, dry and intact. [place] intact. No surrounding erythma or drainage. No signs of infection. Able to perform slight dorsiflexion and plantar flexion. Sensation intact. Pedal pulse intact. Office Procedures Casting/Splints [id number]-[id number] Leg splint application Procedure code (CPT) selection complete Assessment & Plan Assessment & Plan (1) Closed left ankle fracture: Code(s): S82.892A - Other fracture of left lower leg, initial encounter for closed fracture Category: Medical Plan Ms. Porter is a 24-year-old female who presents in the office today 8 days status post left bimalleolar and syndesmosis ORIF which was performed on 04/12/[address] Luz. While in the office today, the patient reports experiencing sharp stabbing pain in the left ankle. She mentions that she braced herself from a fall on 04/16/24 resulting in putting weight on her left ankle. She has been attempting to elevate and to remain non-weight bearing on the left ankle. X-rays obtained at today's visit reveal intact orthopedic hardware without displcaement or failure. The patient was placed back into a splint. She may remain non-weight bearing. She will follow-up in a week anticipating staple removal and placement into a cast. Follow-up will be in one week, or sooner if needed. X-rays of the left ankle which were obtained while in the office today and were reviewed by me, Bela Lopez PA-C, revealed: Intact orthopedic hardware. Orders: Orders XR ankle LT min 3V 04/20/24 M25.579 - Pain in unspecified ankle and joints of unspecified foot Patient Instructions: Scribed by Iman Kunz, director medical economics, for Bela Lopez PA-C on 04/20/24 at 11:45 am EST. Coding Level of Care Code Global (96011) Diagnoses Closed left ankle fracture S82.892A CPT Codes Splint - CPT: 09527-Tqnnk Leg splint application ([id number])
== END 2024-04-20 12:24 | disposition home or self-care (01) ==
PROVIDERS: Visit Provider Physician Assistant
DX: S82.892A Other fracture of left lower leg, initial encounter for closed fracture (principal)
CPT/HCPCS: 29515; 99024

== ENCOUNTER 2024-04-27 12:57 | Outpatient (AMB) | payer MEDICAID, SELFPAY ==
--- NOTE | 2024-04-27 13:03 | A.OFFVIS_ITS ---
Intake Visit Reasons: PO LT ankle ORIF 04/12/24 NE-1 WK follow up Intake Note: Lauren is a 24 year old female who presents today for a post op appointment s/p LT ankle ORIF enrike, syndesmosis 04/12/24 NE. Patient reports she is doing well. She mentions that she has off and on twitches in her foot that cause her pain and discomfort. Allergies insect venom [MOSQUITO] Allergy (Unknown, Verified 04/27/24 13:19) UNKNOWN paliperidone [From INVEGA] Allergy (Unknown, Verified 04/27/24 13:19) DYSTONIC REACTION haloperidol [HALOPERIDOL] Adverse Reaction (Intermediate, Verified 04/27/24 13:19) Dystonic reaction HPI HPI PO LT ankle ORIF 04/12/24 NE-1 WK follow up: Details: bimalleolar and syndesmosis ORIF, which was performed on 04/12/[address] Luz. I last saw the patient in the office on 04/20/24, when she reported sharp, stabbing pain in the left ankle. She had applied weight on her left ankle while bracing herself from a fall on 04/16/24. She was placed back into a splint and instructed to remain non-weight bearing. While in the office today, the patient reports she is doing well post- operatively. She mentions intermittent twitches in her left foot resulting in pain and discomfort. [facility] Medical History Depression Chronic schizophrenia Bipolar disorder Depression Anxiety Bipolar 1 disorder Social History Household Members: Other Household Members Other:: staff, roommates Housing: House Housing Other:: senior living. 3 stairs Are you a primary pet care attendant to a significant other at home: No Do you presently have visiting nurse or other home services: No Alcohol intake: never Comment: M3 Patient Tobacco Use Status: Current everyday Tobacco user Tobacco use type: Cigarette Cigarette Packs Per Day: 0.5 Cigarettes Per Day: 5 Years Smoked: 2 years e-Cigarette/Vaping Use: Currently Using Second Hand Smoke Exposure: No Substance Use Type: Marijuana service: No Sexual orientation: Don't Know Review of Systems Const All systems reviewed & are unremarkable except as noted in HPI and below Physical Exam Const General: cooperative, healthy appearing and no acute distress Resp Effort & Inspection: normal respiratory effort and able to speak in complete sentences Cardio Rate: regular rate Peripheral pulses: Peripheral pulses 2+ throughout GI Palpation (GI): Soft to palpation Skin Lesions: no lesions Rashes: no rashes Extrem Other: Left ankle: Incision sites are clean, dry and intact. [place] intact. No surrounding erythema or drainage. No signs of infection. Edema has improved since the last office visit. Able to perform dorsiflexion and plantar flexion, but limited due to edema and pain. Sensation is intact. Pedal pulse is intact. Office Procedures Casting/Splints [id number] Leg Cast Application Procedure code (CPT) selection complete Assessment & Plan Assessment & Plan (1) Closed left ankle fracture: Code(s): S82.892A - Other fracture of left lower leg, initial encounter for closed fracture Category: Medical Plan Ms. Porter is a 24-year-old female who presents in the office today for a 15- day status post left bimalleolar and syndesmosis ORIF, which was performed on 04/12/[address] Luz. I last saw the patient in the office on 04/20/24, when she reported sharp, stabbing pain in the left ankle. She had applied weight on her left ankle while bracing herself from a fall on 04/16/24. She was placed back into a splint and instructed to remain non-weight bearing. While in the office today, the patient reports she is doing well post- operatively. She mentions intermittent twitches in her left foot resulting in pain and discomfort. Down[place] were removed and steri-strips were applied. She was placed into a short leg cast, off the shelf. Follow-up will be in 4 weeks with cast off and x-rays, or sooner if needed. Patient Instructions: Scribed by Iman Kunz pesticide use medical coordinator, for Bela Lopez PA-C on 04/27/24 at 01:48 pm EST. Coding Level of Care Code Global (89775) Diagnoses Closed left ankle fracture S82.892A CPT Codes Casting - CPT: 58319-Qghtu Leg Cast Application ([id number])
== END 2024-04-27 14:13 | disposition home or self-care (01) ==
PROVIDERS: Visit Provider Physician Assistant
DX: S82.892A Other fracture of left lower leg, initial encounter for closed fracture (principal)
CPT/HCPCS: 99024

== ENCOUNTER → 2024-04-27 12:57 | Outpatient (BNVA) | payer MEDICAID, SELFPAY | PROVIDERS: Visit Provider Physician Assistant | DX: S82.892A Other fracture of left lower leg, initial encounter for closed fracture (principal); W18.30XA Fall on same level, unspecified, initial encounter; Y93.9 Activity, unspecified; Y92.9 Unspecified place or not applicable; Y99.9 Unspecified external cause status | CPT/HCPCS: 99212 ==

== ENCOUNTER 2024-05-05 12:33 | Outpatient (AMB) | payer MEDICAID, SELFPAY ==
--- NOTE | 2024-05-05 12:34 | MHC.OFFVIS ---
Intake Visit Reasons: PO - LT ankle ORIF 04/12/24 NE Intake Note: Lauren is a 24 year old female who presents today for a post op appointment s/p LT ankle ORIF enrike, syndesmosis 04/12/24 NE. Patient reports her cast was loose and would to change it. Allergies insect venom [MOSQUITO] Allergy (Unknown, Verified 05/05/24 12:35) UNKNOWN paliperidone [From INVEGA] Allergy (Unknown, Verified 05/05/24 12:35) DYSTONIC REACTION haloperidol [HALOPERIDOL] Adverse Reaction (Intermediate, Verified 05/05/24 12:35) Dystonic reaction HPI HPI PO - LT ankle ORIF 04/12/24 NE: Details: 24-year-old female who presents in the office today 3 weeks status post left bimalleolar and syndesmosis ORIF, which was performed on 04/12/[address] Luz. I last saw the patient in the office on 04/27/24 when toña were removed and steri-strips were applied. She was placed into a short leg cast. While in the office today, the patient reports her cast has gotten loose and would like to change it. [facility] Medical History Depression Chronic schizophrenia Bipolar disorder Depression Anxiety Bipolar 1 disorder Social History Household Members: Other Household Members Other:: staff, roommates Housing: House Housing Other:: halfway. 3 stairs Are you a primary career placement services counselor to a significant other at home: No Do you presently have visiting nurse or other home services: No Alcohol intake: never Comment: M3 Patient Tobacco Use Status: Current everyday Tobacco user Tobacco use type: Cigarette Cigarette Packs Per Day: 0.5 Cigarettes Per Day: 5 Years Smoked: 2 years e-Cigarette/Vaping Use: Currently Using Second Hand Smoke Exposure: No Substance Use Type: Marijuana service: No Sexual orientation: Don't Know Review of Systems Const All systems reviewed & are unremarkable except as noted in HPI and below Physical Exam Const General: cooperative, healthy appearing and no acute distress Resp Effort & Inspection: normal respiratory effort and able to speak in complete sentences Cardio Rate: regular rate Peripheral pulses: Peripheral pulses 2+ throughout GI Palpation (GI): Soft to palpation Skin Lesions: no lesions Rashes: no rashes Extrem Other: Left ankle: Incision sites are clean, dry and intact. No surrounding erythema or drainage. No signs of infection. Able to perform dorsiflexion and plantar flexion. NVI. Office Procedures Casting/Splints [id number] Leg Cast Application Procedure code (CPT) selection complete Assessment & Plan Assessment & Plan (1) Closed left ankle fracture: Code(s): S82.892A - Other fracture of left lower leg, initial encounter for closed fracture Category: Medical Plan Ms. Porter is a 24-year-old female who presents in the office today 3 weeks status post left bimalleolar and syndesmosis ORIF, which was performed on 04/12/[address] Luz. I last saw the patient in the office on 04/27/24 when toña were removed and steri-strips were applied. She was placed into a short leg cast. While in the office today, the patient reports her cast has gotten loose and would like to change it. The patient was placed back into a short leg cast. The patient was educated on cast maintenance with instructions to keep the cast clean, dry, and intact. However, should the cast become wet, dirty, loose, or there is a concern please call the office immediately to be scheduled for a cast change as there's a high risk of infection with the pins in place. She will continue to remain non-weight bearing on the left lower extremity. Follow-up will be at her normally scheduled follow-up appointment, or sooner if needed. Patient Instructions: Scribed by Iman Kunz certified medical asst, for Bela Lopez PA-C on 05/05/24 at 12:48 pm EST. Coding Level of Care Code Global (48022) Diagnoses Closed left ankle fracture S82.892A CPT Codes Casting - CPT: 27650-Zphnr Leg Cast Application ([id number])
== END 2024-05-05 13:16 | disposition home or self-care (01) ==
PROVIDERS: Visit Provider Physician Assistant
DX: S82.892A Other fracture of left lower leg, initial encounter for closed fracture (principal); S82.842A Displaced bimalleolar fracture of left lower leg, initial encounter for closed fracture
CPT/HCPCS: 29405; 99024

== ENCOUNTER → 2024-05-05 12:33 | Outpatient (BNVA) | payer MEDICAID, SELFPAY | PROVIDERS: Visit Provider Physician Assistant | DX: S82.892D Other fracture of left lower leg, subsequent encounter for closed fracture with routine healing (principal); X58.XXXD Exposure to other specified factors, subsequent encounter; Z98.890 Other specified postprocedural states | CPT/HCPCS: 29405; 99212 ==

== ENCOUNTER 2024-05-18 10:45 | Outpatient (REF) | payer MEDICAID, SELFPAY ==
--- NOTE | ~2024-05-18 | XR_ITS ---
EXAMINATION: XR ANKLE 3 OR MORE VIEWS LEFT HISTORY: M25.579 - Pain in unspecified ankle and joints of unspecified foot COMPARISON: Comparison is made with the prior examination dated 04/20/2024. FINDINGS: Three views of the left ankle are submitted. Osseous mineralization is normal. The patient is again noted to be status post internal fixation of a fracture of the distal fibula with a sideplate and multiple orthopedic screws. Two screws are again noted in the medial malleolus. The fibular fracture lines remain visible, but there is mild blurring of the fracture margins consistent with healing. A small amount of callus formation is also noted. The medial malleolar fracture line is not well seen. There is a posterior malleolar fracture which is nondisplaced without change. The joint spaces are preserved. The soft tissues are unremarkable. XR/XR ankle LT min 3V IMPRESSION: Healing internally fixed fracture of the distal fibula. Internal fixation of the medial malleolus. Additional nondisplaced posterior malleolar fracture. Electronically signed by: Skyler Rich MD 05/23/2024 11:05 AM AD[facility]
== END 2024-05-18 10:46 | disposition home or self-care (01) ==
LOC: HO.HOSX 10:45
PROVIDERS: Visit Provider Physician Assistant
DX: M25.572 Pain in left ankle and joints of left foot (principal); S82.892D Other fracture of left lower leg, subsequent encounter for closed fracture with routine healing; Z98.890 Other specified postprocedural states
CPT/HCPCS: 73610; 99212

== ENCOUNTER 2024-05-18 13:14 | Outpatient (AMB) | payer MEDICAID, SELFPAY ==
--- NOTE | 2024-05-18 13:18 | A.OFFVIS_ITS ---
Intake Visit Reasons: PO LT ankle ORIF 04/12/24 NE-4 WK follow up Intake Note: Lauren is a 24 year old female who presents today with mom for a post op appointment s/p LT ankle ORIF enrike, syndesmosis 04/12/24 NE. Patient reports she is doing well. She is having mild discomfort from being out of the cast for x rays. Allergies insect venom [MOSQUITO] Allergy (Unknown, Verified 05/18/24 13:59) UNKNOWN paliperidone [From INVEGA] Allergy (Unknown, Verified 05/18/24 13:59) DYSTONIC REACTION haloperidol [HALOPERIDOL] Adverse Reaction (Intermediate, Verified 05/18/24 13:59) Dystonic reaction HPI HPI PO LT ankle ORIF 04/12/24 NE-4 WK follow up: Details: Ms. Porter is a 24-year-old female presents to the office today status post left ankle ORIF performed on 04/12/[address] Luz. Patient has been in a short-leg cast until last appointment and has been remaining nonweightbearing for the most part. Patient reports that she took 2 steps to her bureau. She reports that she had no pain. Overall she is doing very well. [facility] Medical History Depression Chronic schizophrenia Bipolar disorder Depression Anxiety Bipolar 1 disorder Social History Household Members: Other Household Members Other:: staff, roommates Housing: House Housing Other:: nursing home. 3 stairs Are you a primary medical care manager to a significant other at home: No Do you presently have visiting nurse or other home services: No Alcohol intake: never Comment: M3 Patient Tobacco Use Status: Current everyday Tobacco user Tobacco use type: Cigarette Cigarette Packs Per Day: 0.5 Cigarettes Per Day: 5 Years Smoked: 2 years e-Cigarette/Vaping Use: Currently Using Second Hand Smoke Exposure: No Substance Use Type: Marijuana service: No Sexual orientation: Don't Know Review of Systems Const All systems reviewed & are unremarkable except as noted in HPI and below Physical Exam Const General: cooperative, healthy appearing and no acute distress Resp Effort & Inspection: normal respiratory effort and able to speak in complete sentences Cardio Rate: regular rate Peripheral pulses: Peripheral pulses 2+ throughout Skin Lesions: no lesions Rashes: no rashes Extrem Other: Left ankle novel to inspection incision sites are clean dry and intact. No surrounding erythema or drainage. No signs of infection. Able to slightly dorsiflex and plantar flex. NVI. Assessment & Plan Assessment & Plan (1) Closed left ankle fracture: Code(s): S82.892A - Other fracture of left lower leg, initial encounter for closed fracture Category: Medical Plan Ms. Porter is a 24-year-old female presents to the office today status post left ankle ORIF performed on 04/12/[address] Luz. Patient has been in a short-leg cast until last appointment and has been remaining nonweightbearing for the most part. Patient reports that she took 2 steps to her bureau. She reports that she had no pain. Overall she is doing very well. Patient was placed into a tall walking boot. She may begin to weightbear as tolerated. I did educate the patient that should she have an increase in pain she should remain on crutches and contact our office. A physical therapy order has also been placed for today. I would like to see her back in 6 weeks, sooner if needed. X-rays were obtained in the office today of the left ankle and reviewed by me, intact orthopedic hardware with routine healing. Orders: Orders XR ankle LT min 3V Today M25.579 - Pain in unspecified ankle and joints of unspecified foot Coding Level of Care Code Global (12863) Diagnoses Closed left ankle fracture S82.892A
== END 2024-05-18 14:29 | disposition home or self-care (01) ==
LOC: HO.HOS 13:14
PROVIDERS: Visit Provider Physician Assistant
DX: S82.892A Other fracture of left lower leg, initial encounter for closed fracture (principal)
CPT/HCPCS: 99024

== ENCOUNTER 2024-06-30 09:28 | Outpatient (REF) | payer MEDICAID, SELFPAY ==
--- NOTE | ~2024-06-30 | XR_ITS ---
EXAMINATION: XR ANKLE 3 OR MORE VIEWS LEFT HISTORY: M25.579 - Pain in unspecified ankle and joints of unspecified foot COMPARISON: Comparison is made with the prior examination dated 05/18/2024. FINDINGS: Three views of the left ankle are submitted. Osseous mineralization is normal. The patient is again noted to be status post internal fixation of an oblique fracture of the distal fibula as well as the medial malleolus. An additional fracture of the posterior malleolus is also seen. The fracture lines are less visible than on the prior study, consistent with healing. No new fracture or dislocation is seen. The joint spaces are preserved. The soft tissues are unremarkable. XR/XR ankle LT min 3V IMPRESSION: Healing internally fixed fractures of the medial malleolus and distal fibula. Healing posterior malleolar fracture. Electronically signed by: Skyler Rich MD 07/04/2024 08:02 AM ADRIANE WEEKS
--- OUTSIDE RECORDS SUMMARY | 2024-07-04 10:34 | XMS_ITS | Patient Health Record ---
Author Organization [facility] Address [address] [phone] Care Team Providers Care Lunch Wagon Operator Name Role Phone VIOLA BAKER Unavailable [phone] Allergies No Known Allergies Results Component Value Reference Range Notes Urinalysis Reviewed date:01/27/2024 12:26:20 PM Interpretation:Leuks positive Performing Lab: Notes/Report: Leuks positive Leukocytes 500 Nitrates - Uro 0.2 Protein 15 pH 6.5 Blood - Spec Annona 1.005 Ketones 15 Bilirubin - Glucose - Trich vag by [id number] Reviewed date:01/27/2024 12:26:05 PM Interpretation:Negative Performing Lab:[facility], [address], [address], [place], Phone - [phone], [facility] Notes/Report: Trich vag by SIENNA Negative Negative Urine Culture, Routine-[id number] Reviewed date:01/24/2024 10:57:09 AM Interpretation:Mixed urogenital tobias Performing Lab:[facility], [address], [address], [place], Phone - [phone], [facility] Notes/Report: Urine Culture, Routine Final report Result 1 Mixed urogenital tobias 50,000-100,000 colony forming units per mL Test, Urine Reviewed date:01/12/2024 10:37:49 AM Interpretation:Negative Performing Lab: Notes/Report: Negative Test, Urine neg Lot # [id number] Exp. Date 11/09/[address]/NG, Urine Reviewed date:01/18/2024 10:02:46 AM Interpretation:Chlamydia Positive Performing Lab:[facility], [address] [facility], [place], [address] Jani Forman DO Notes/Report: GONORRHEA, AMPLIFIED NEGATIVE NEGATIVE CHLAMYDIA, AMPLIFIED POSITIVE NEGATIVE DNA Test Results SEX: F : 2000 AGE: 23 [id number] CLINIC ID: [id number] SS: PHYSICIAN: VIOLA BAKER CNM COLLECTED BY: [id number] Specimen Source: Urine Specimen Type: Urine, Roseanne PCR Medium Neisseria gonorrhoeae: NEGATIVE Normal Value: Negative Chlamydia trachomatis: POSITIVE Normal Value: Negative Reason For Referral No Information Medications Medication [...] today Encounters Encounter Location Date Provider Diagnosis [address] [id number] 01/12/2024 VIOLA BAKER Encounter for preg ana test, result negative Z32.02 and Encounter for screening for infections with a predominantly sexual mode of transmission Z11.[address] [id number] 01/19/2024 VIOLA BAKER Chlamydial infecti on A74.9 ; Encounter for screening for infections with a predominantly sexual mode of transmission Z11.3 ; HIV Screening Z11.4 ; Urinary Frequency R35.0 and Screening for other viral diseases Z11.[address] [id number] 01/21/2024 VIOLA BAKER [employer] [id number] 01/18/2024 VIOLA BAKER [employer] [id number] 01/24/2024 VIOLA BAKER Assessments Encounter Date Diagnosis [...] ATT CLAIMS [address] [place] [address] [id number] Lauren Porter Self - patient is the insured Medical (General) History Medical History History ICD Code CT 01/2024
--- OUTSIDE RECORDS SUMMARY | 2024-07-04 10:35 | XMS_ITS ---
Author Organization [facility] Address [address] [place] [phone] Care Team Providers Care Plate Mounter Name Role Phone VIOLA BAKER Unavailable [phone] REASON FOR VISIT Counseling/Testing Social History Sex Assigned At : Social History Observation Description Sex Assigned At Female Encounters Encounter Location Date Provider Diagnosis [facility] [phone] VIOLA BAKER Plan Of Treatment No Information Progress Notes * Lauren MEI MDOB:1999 (24 yo F)Acc No.[id number]:04/26/2024 Progress Notes Patient:?Lauren MEI Provider:ABE BAKER :2000???Age:24 Y???Sex:Female D ate:04/26/2024 Address:[address] [place], [place] [phone] Subjective: * Chief Complaints: * ???1. Counseling/Testing. * Medical History:? Objective: * Vitals:? Assessment: Plan: * Treatment: * Billing Information: * Visit Code:? * Procedure Codes:? * Electronic signature of AMNA BAKER CNM on 07/04/2024 at 10:35 AM EST Sign off status: Pending * Provider:ABE BAKER Date:?04/26/2024 Generated for Tianna katz/Vito/Antonio on:?07/04/2024 10:35 AM EST
--- OUTSIDE RECORDS SUMMARY | 2024-07-04 10:35 | XMS_ITS | Clinical Summary ---
Author Organization [employer] Address 75 [facility] 7 [place] [address] Care Team Providers Care Tax Agent Name Role Phone Unavailable Primary Care Provider [...] Overview (10/11/2023): 02/2018: ED, Crisis, admitted to [facility] inpatient. 03/2018: Inpatient admission; Discharged 04/2018. 01/2019: [facility] from [facility] . Likely to transfer to [facility]. 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 Constipation 09/30/2015 06/20/2024 Dysmenorrhea 02/21/2015 06/20/2024 Eczema 02/21/2015 06/20/2024 Encounters Date Type Department Care Team Description 06/20/2024 10:45 AM EST Office Visit [facility] MEDICINE [address] [place] [address] Agata Emery, Routine history and physical examination of adult (Primary Dx); Chronic bipolar disorder (CMS/HCC); BMI 26.0-26.9,adult; Encounter for immunization; Dietary counseling; Exercise counseling 06/20/2024 Travel 06/13/2024 Travel 06/08/2024 Patient Outreach [facility] MEDICINE [address] [place] [phone] Agata Emery DO Pre-visit Planning (SDOH screening negative and tobacco screening negative) 05/15/2024 Telephone [facility] MEDICINE [address] [place] [phone] Kameron Gates MD New patient appt. from [...] Description 08/18/2024 11:00 AM EDT Office Visit [facility] MEDICINE [address] [place] [address] Agata Emery DO [address] [place] [address] Health Maintenance Due Date Last Done Comments [...] patient's age to complete this topic Insurance [facility] C3
--- OUTSIDE RECORDS SUMMARY | 2024-07-04 10:35 | XMS_ITS | Encounter Summary ---
Author Organization [employer] Address [address] [facility] 7t [place] [address] Care Team Providers Care Vegetable Sorter Name Role Phone Unavailable Primary Care Provider [...] Description 08/18/2024 11:00 AM EDT Office Visit [facility] MEDICINE [address] [place] [address] Agata Emery DO [address] [place] [address] documented as of this encounter Visit Diagnoses Not on filedocumented in this encounter Additional Health Concerns Assessment Noted Time PHQ-9 Depression Total Score: 10 025 10:58 AM EST documented as of this encounter
--- OUTSIDE RECORDS SUMMARY | 2024-07-04 10:35 | XMS_ITS | Encounter Summary ---
Author Organization [employer] Address [address] [facility] 7 [place] [address] Care Team Providers Care Phlebotomy Supervisor Name Role Phone Unavailable Primary Care Provider Unavailabl e Reason for Visit * Reason Comments Pre-visit Planning SDOH screening negat yareli and tobacco screening negative Encounter Details Date Type Department Care Team ([facility] st Contact Info) Description 06/08/2024 Patient Outreach [facility] MEDICINE [address] [place], [place] [phone] Agata Emery DO [address] [place], [place] [phone] Pre-visit Planning (SDOH screening negative and tobacco [...] Description 08/18/2024 11:00 AM EDT Office Visit [facility] MEDICINE [address] [place] [address] Agata Emery DO [address] [place] [address] documented as of this encounter Visit Diagnoses Not on filedocumented in this encounter
--- OUTSIDE RECORDS SUMMARY | 2024-07-04 10:35 | XMS_ITS | Encounter Summary ---
Author Organization [employer] Address 75 [facility] 7 [place] [address] Care Team Providers Care Rubber Attacher Name Role Phone Unavailable Primary Care Provider Unavailabl e Encounter Details Date Type Department Care Team (Latest Contact Info) Description 06/13/2024 Travel Social History Tobacco Use Types Packs/Day Years Used Date Smoking Tobacco: Never Assessed Housing Stability Answer Date Recorded What is your housing situation today? I have amy esrrano 06/08/[address] you li [...] Description 08/18/2024 11:00 AM EDT Office Visit [facility] MEDICINE [address] [place] [address] Agata Emery DO [address] [place] [address] documented as of this encounter Visit Diagnoses Not on filedocumented in this encounter
--- OUTSIDE RECORDS SUMMARY | 2024-07-04 10:35 | XMS_ITS | Encounter Summary ---
Author Organization [employer] Address 75 [facility] 7 [place] [address] Care Team Providers Care Or Assistant Name Role Phone Unavailable Primary Care Provider Unavailabl e Encounter Details Date Type Department Care Team (Late st Contact Info) Description 06/20/2024 10:45 AM EST Office Visit [facility] MEDICINE [address] [place], [place] [phone] Agata Emery DO [address] [place], [place] [phone] Routine history and physical examination of adult [...] Description 08/18/2024 11:00 AM EDT Office Visit [facility] MEDICINE [address] [place] [address] Agata Emery DO [address] [place] [address] Scheduled Orders Name Type Priority Associated Diagnoses [...]
--- OUTSIDE RECORDS SUMMARY | 2024-07-04 10:35 | XMS_ITS ---
Author Organization [facility] Address [address] [phone] Care Team Providers Care Ampoule Inspector Name Role Phone SAMUEL, VIOLA Unavailable [phone] REASON FOR VISIT Test results Social History Sex Assigned At : Social History Observation Description Sex Assigned At Female Encounters Encounter Location Date Provider Diagnosis [address] [id number] 01/24/2024 VIOLA BAKER Plan Of Treatment No Information Progress Notes * Lauren MEI MDOB:1999 (24 yo F)Acc No.[id number]:01/24/2024 Patient:?Lauren MEI :2000???Age:23 Y???Sex:Female Address:[address] [place] [phone] * true * Date:? Generated for Tianna katz/Vito/eTransmitting on:?07/04/2024 10:34 AM EST
--- OUTSIDE RECORDS SUMMARY | 2024-07-04 10:35 | XMS_ITS ---
Author Organization [facility] Address [address] [place] [phone] Care Team Providers Care Cooker Tender Name Role Phone VIOLA BAKER Unavailable [phone] REASON FOR VISIT Counseling/Testing Social History Sex Assigned At : Social History Observation Description Sex Assigned At Female Encounters Encounter Location Date Provider Diagnosis [facility] [id number] 08/2023 VIOLA BAKER Plan Of Treatment No Information Progress Notes * Lauren MEI MDOB:1999 (24 yo F)Acc No.[id number]:04/12/2024 Progress Notes Patient:?Lauren MEI Provider:ABE BAKER :2000???Age:24 Y???Sex:Female D ate:04/12/2024 Address:[address] [place], [place] [phone] Subjective: * Chief Complaints: * ???1. Counseling/Testing. * Medical History:? Objective: * Vitals:? Assessment: Plan: * Treatment: * Billing Information: * Visit Code:? * Procedure Codes:? * Electronic signature of AMNA BAKER CNM on 07/04/2024 at 10:35 AM EST Sign off status: Pending * Provider:ABE BAKER Date:?04/12/2024 Generated for Tianna katz/Vito/Antonio on:?07/04/2024 10:35 AM EST
== END 2024-06-30 09:29 | disposition home or self-care (01) ==
LOC: HO.HOSX 09:28
PROVIDERS: Visit Provider Physician Assistant
DX: M25.572 Pain in left ankle and joints of left foot (principal); S82.892A Other fracture of left lower leg, initial encounter for closed fracture; Z98.890 Other specified postprocedural states; Z87.81 Personal history of (healed) traumatic fracture
CPT/HCPCS: 73610; 99212

== ENCOUNTER 2024-06-30 12:06 | Outpatient (AMB) | payer MEDICAID, SELFPAY ==
--- NOTE | 2024-06-30 12:42 | A.OFFVIS_ITS ---
Intake Visit Reasons: PO LT ankle ORIF 04/12/24 NE Intake Note: Lauren is a 24 year old female who presents for a post op appointment s/p LT ankle ORIF 04/12/24 NE. Patient reports she hasn't started PT due to not having a PCP. SHe informed me that she just got a PCP and if we can put a new order for PT. Patient mentions that she feel unstable without the boot. Allergies insect venom [MOSQUITO] Allergy (Unknown, Verified 05/18/24 13:59) UNKNOWN paliperidone [From INVEGA] Allergy (Unknown, Verified 05/18/24 13:59) DYSTONIC REACTION haloperidol [HALOPERIDOL] Adverse Reaction (Intermediate, Verified 05/18/24 13:59) Dystonic reaction HPI HPI PO LT ankle ORIF 04/12/24 NE: Details: Ms. Porter is a 24-year-old female who presents to the office today for routine follow-up status post left ankle ORIF performed on 04/12/[address] Luz. Since her last appointment she has been ambulating a tall walking boot. She was encouraged to attend physical therapy however at the time she did not have a PCP. Since her last appointment she had established care with a PCP and then like a referral for formal physical therapy. [facility] Medical History Depression Chronic schizophrenia Bipolar disorder Depression Anxiety Bipolar 1 disorder Social History Household Members: Other Household Members Other:: staff, roommates Housing: House Housing Other:: assisted. 3 stairs Are you a primary adult daycare coordinator to a significant other at home: No Do you presently have visiting nurse or other home services: No Alcohol intake: never Comment: M3 Patient Tobacco Use Status: Current everyday Tobacco user Tobacco use type: Cigarette Cigarette Packs Per Day: 0.5 Cigarettes Per Day: 5 Years Smoked: 2 years e-Cigarette/Vaping Use: Currently Using Second Hand Smoke Exposure: No Substance Use Type: Marijuana service: No Sexual orientation: Don't Know Review of Systems Const All systems reviewed & are unremarkable except as noted in HPI and below Physical Exam Const General: cooperative, healthy appearing and no acute distress Resp Effort & Inspection: normal respiratory effort and able to speak in complete sentences Cardio Rate: regular rate Peripheral pulses: Peripheral pulses 2+ throughout Skin Lesions: no lesions Rashes: no rashes Extrem Other: Left ankle novel to inspection incision sites are clean dry and intact. No s urrounding erythema or drainage. No signs of infection. Able to slightly dorsiflex and plantar flex. NVI. Assessment & Plan Assessment & Plan (1) Closed left ankle fracture: Code(s): S82.892A - Other fracture of left lower leg, initial encounter for closed fracture Category: Medical (2) Status post ORIF of fracture of ankle: Code(s): Z98.890 - Other specified postprocedural states; Z87.81 - Personal history of (healed) traumatic fracture Category: Surgical Plan Ms. Porter is a 24-year-old female who presents to the office today for routine follow-up status post left ankle ORIF performed on 04/12/[address] Luz. Since her last appointment she has been ambulating a tall walking boot. She was encouraged to attend physical therapy however at the time she did not have a PCP. Since her last appointment she had established care with a PCP and then like a referral for formal physical therapy. On the office today, new order for physical therapy has been placed. I would like the patient to wean out of the tall walking boot within the next 2 weeks. She should wean into a supportive walking sneaker. I would like to see her in 6 weeks after physical therapy, sooner if needed. X-rays of the left ankle which were obtained while in the office today and were reviewed by me, Bela Lopez PA-C, revealed intact orthopedic hardware with routine healing. Orders: Orders PT Evaluation and Treatment Today S82.892A - Other fracture of left lower leg, initial encounter for closed fracture, Z87.81 - Personal history of (healed) traumatic fracture, Z98.890 - Other specified postprocedural states XR ankle LT min 3V Today M25.579 - Pain in unspecified ankle and joints of unspecified foot Coding Level of Care Code Global (85351) Diagnoses Closed left ankle fracture S82.892A Status post ORIF of fracture of ankle Z98.890; Z87.81
--- OUTSIDE RECORDS SUMMARY | 2024-06-30 12:55 | XMS_ITS | Encounter Summary ---
Author Organization [employer] Address [address] [facility] 7 [place] [address] Care Team Providers Care Svp Research & Ebusiness Operations Name Role Phone Unavailable Primary Care Provider Unavailabl e Encounter Details Date Type Department Care Team (Latest Contact Info) Description 06/13/2024 Travel Social History Tobacco Use Types Packs/Day Years Used Date Smoking Tobacco: Never Assessed Housing Stability Answer Date Recorded What is your housing situation today? I have amy serrano 06/08/[address] you li ve. Do you have problems with any of the following? None of the above 06/08/2024 Food Insecurity Answer Date Recorded Within the past 12 months, y ou worried that your food would run out before you got money to buy more: Never True 06/08/2024 Within the past 12 months,th e food you bought just didn't last and you didn't have enough money to get more: Never True Transportation Answer Date Recorded In the past 12 months, has l ack of transportation kept you from medical appts, meetings, work or from getting things needed for daily living? No 06/08/2024 Utilities Answer Date Recorded In the past 12 months, has t he electric, gas, oil or water company threatened to shut off services in your home? No 06/08/2024 Internet Access Answer Date Recorded Internet Access Q1 Yes 06/08/2024 Internet Access Q2 Not on file 06/08/2024 Comments Unknown Sex and Gender Information Value Date Recorded Sex Assigned at Female 10/11/2023 9:41 AM EDT Legal Sex Female 8:55 AM EDT Gender Identity Female 06/13/2024 8:46 AM EST Sexual Orientation Bisexual 06/13/2024 8: 46 AM EST documented as of this encounter Plan of Treatment Upcoming Encounters Date Type Department Care Team (Late st Contact Info) Description 08/18/2024 11:00 AM EDT Office Visit [facility] [address] [place] [address] Agata Emery DO [address] [place] [address] documented as of this encounter Visit Diagnoses Not on filedocumented in this encounter
--- OUTSIDE RECORDS SUMMARY | 2024-06-30 12:55 | XMS_ITS | Encounter Summary ---
Author Organization [employer] Address [address] [facility] [address] [place] [address] Care Team Providers Care Reproducer Name Role Phone Unavailable Primary Care Provider Unavailabl e Encounter Details Date Type Department Care Team (Latest Contact Info) Description 06/20/2024 Travel Social History Tobacco Use Types Packs/Day Years Used Date Smoking Tobacco: Never Assessed Depression Answer Date Recorded Patient Health Questionnaire-9 Score 10 06/20/2024 Patient Health Questionnaire-9 Score 10 06/20/2024 Last PHQ-9: Questionnaire Data Not on file 0 06/20/2024 Housing Stability Answer Date Recorded What is [...] off services in your home? No 06/08/2024 Depression Answer Date Recorded Patient Health Questionnaire-2 Score 0 06/20/2024 Internet Access Answer Date Recorded Internet Access Q1 Yes 06/08/2024 Internet Access Q2 Not on file 06/08/2024 Comments No Sex and Gender Information Value Date Recorded Sex Assigned at Female 10/11/2023 9:41 AM EDT Legal Sex Female 8:55 AM EDT Gender Identity Female 06/13/2024 8:46 AM EST Sexual Orientation Bisexual 06/13/2024 8: 46 AM EST documented as of this encounter Plan of Treatment Upcoming Encounters Date Type Department Care Team (Late st Contact Info) Description 08/18/2024 11:00 AM EDT Office Visit [facility] [address] [place] [address] Agata Emery DO [address] [place] [address] documented as of this encounter Visit Diagnoses Not on filedocumented in this encounter Additional Health Concerns Assessment Noted Time PHQ-9 Depression Total Score: 10 025 10:58 AM EST documented as of this encounter
--- OUTSIDE RECORDS SUMMARY | 2024-06-30 12:55 | XMS_ITS | Patient Health Record ---
Author Organization [facility] Address [address] [place] [id number] Care Team Providers Care Biofuels Technology Manager Name Role Phone SAMUEL VIOLA Unavailable [phone] Allergies No Known Allergies Results Component Value Reference Range Notes Urinalysis Reviewed date:01/27/2024 12:26:20 PM Interpretation:Leuks positive Performing Lab: Notes/Report: Leuks positive Leukocytes 500 Nitrates - Uro 0.2 Protein 15 pH 6.5 Blood - Spec [place] 1.005 Ketones 15 Bilirubin - Glucose - Trich vag by [id number] Reviewed date:01/27/2024 12:26:05 PM Interpretation:Negative Performing Lab:[facility] [place], [address], [address], [place], Phone - [phone], [facility] Notes/Report: Trich vag by SIENNA Negative Negative Urine Culture, Routine-10002 7 Reviewed date:01/24/2024 10:57:09 AM Interpretation:Mixed urogenital tobias Performing Lab:[facility] [place], [address], [address], [place], Phone - [phone], [facility] Notes/Report: Urine Culture, Routine Final report Result 1 Mixed urogenital tobias 50,000-100,000 colony forming units per mL APTIMA COMBO 2 CT/NG, Urine Reviewed date:01/18/2024 10:02:46 AM Interpretation:Chlamydia Positive Performing Lab:[facility], [facility], [place], [address] Jani Forman DO Notes/Report: GONORRHEA, AMPLIFIED NEGATIVE NEGATIVE CHLAMYDIA, AMPLIFIED POSITIVE NEGATIVE DNA Test Results SEX: F : 2000 AGE: 23 [id number] CLINIC ID: [id number] SS: PHYSICIAN: VIOLA BAKER CNM COLLECTED BY: [id number] Specimen Source: Urine Specimen Type: Urine, Roseanne PCR Medium Neisseria gonorrhoeae: NEGATIVE Normal Value: Negative Chlamydia trachomatis: POSITIVE Normal Value: Negative Test, Urine Reviewed date:01/12/2024 10:37:49 AM Interpretation:Negative Performing Lab: Notes/Report: Negative Test, Urine neg Lot # [id number] Exp. Date 11/09/2024 Reason For Referral No Information Medications Medication SIG (Take, Route, Frequency, Duration) Notes Start Date End Date Status Doxycycline Hyclate 100 MG 1 tablet Oral ly Twice daily for 7 days 01/19/2024 Active LaMICtal Active Depakote Active SEROquel Active Methylphenidate Acti ve Social History Sex Assigned At : Social History Observation Description Sex Assigned At Female Section Notes: social hx not fully reviewed today Encounters Encounter Location Date Provider Diagnosis [address] [id number] 01/12/2024 VIOLA BAKER Encounter for preg ana test, result negative Z32.02 and Encounter for screening for infections with a predominantly sexual mode of transmission Z11.[address] [id number] 01/19/2024 VIOLA BAKER Chlamydial infecti on A74.9 ; Encounter for screening for infections with a predominantly sexual mode of transmission Z11.3 ; HIV Screening Z11.4 ; Urinary Frequency R35.0 and Screening for other viral diseases Z11.[address] [id number] 01/21/2024 VIOLA BAKER [address] [id number] 01/18/2024 VIOLA BAKER [address] [id number] 01/24/2024 VIOLA BAKER Assessments Encounter Date Diagnosis (ICD Code) Assessment Notes Treatment Notes Treatment Clinical Notes Section Notes 01/12/2024 Encounter for test, result negative (ICD-10 - Z32.02) Discussed control, STI screening, emergency contraception, sexual coercion, family involvement and reproductive life planning. 01/12/2024 Encounter for screening for infections with a predominantly sexual mode of transmission (ICD-10 - Z11.3) 01/19/2024 Encounter for screening for infections with a predominantly sexual mode of transmission (ICD-10 - Z11.3) Discussed STI risks, screenings that are available through [facility] and safe sex. For Hep B and C screening today. Will come in some time this week for labs. Unsure what day due to work commitments Clt aware of lab processing times and how to view results on portal and how positive results will be communicated Need 2 out of 3 Sections from A-C Section A) Problems (only need one from below) Section B) Data (need at least one of the following categories in this section) Category 1: (Choose three of the following): Order Unique tests Section C) Risk (any one of the following) Prescription drug management (this counts for the whole section) 01/19/2024 Chlamydial infection (ICD-10 - A74.9) Doxycycline not prescribed if risk of . Partner notification and treatment discussed. Partner treatment offered. Advised to abstain from sex for 7 days after treatment of self and partner. PID precautions reviewed. 100% condom use encouraged. Rescreening in 3 months advised Need 2 out of 3 Sections from A-C Section A) Problems (only need one from below) Section B) Data (need at least one of the following categories in this section) Category 1: (Choose three of the following): Order Unique tests Section C) Risk (any one of the following) Prescription drug management (this counts for the whole section) 01/19/2024 HIV Screening (ICD-10 - Z11.4) Need 2 out of 3 Sections from A-C Section A) Problems (only need one from below) Section B) Data (need at least one of the following categories in this section) Category 1: (Choose three of the following): Order Unique tests Section C) Risk (any one of the following) Prescription drug management (this counts for the whole section) 01/19/2024 Urinary Frequency (ICD-10 - R35.0) Possible urinary symptoms are related to CT and not another bacterial infection but can further evaluate with urine sample. Clt to come in for screening Need 2 out of 3 Sections from A-C Section A) Problems (only need one from below) Section B) Data (need at least one of the following categories in this section) Category 1: (Choose three of the following): Order Unique tests Section C) Risk (any one of the following) Prescription drug management (this counts for the whole section) 01/19/2024 Screening for other viral diseases (ICD-10 - Z11.59) Need 2 out of 3 Sections from A-C Section A) Problems (only need one from below) Section B) Data (need at least one of the following categories in this section) Category 1: (Choose three of the following): Order Unique tests Section C) Risk (any one of the following) Prescription drug management (this counts for the whole section) 01/12/2024 Other Plan Of Treatment No Information Insurance Providers Payer Name Payer Address Payer Phone Subscriber Number Group Number Insured Name Patient Relationship to Insured Coverage Start Date Coverage End Date [place] ATT CLAIMS [address] [place] [id number] Lauren Porter Self - patient is the insured Medical (General) History Medical History History ICD Code CT 01/2024
--- OUTSIDE RECORDS SUMMARY | 2024-06-30 12:55 | XMS_ITS | Clinical Summary ---
Author Organization [employer] Address [address] [facility] 7 [place] [address] Care Team Providers Care Nail Making Machine Tender Name Role Phone Unavailable Primary Care Provider Unavailabl e Allergies Active Allergy Reactions Criticality Noted Date Comments Haloperidol 10/11/2023 Paliperidone 10/11/2023 Medications * This document contains information received from the source organization and may not represent a complete record from that organization. divalproex (Depakote ER) 500 MG 24 hr tablet 01/12/2024 Active lamoTRIgine (LaMICtal) 100 MG tablet 05/15/2024 Active methylphenidate (Ritalin) 10 MG tablet 02/18/2024 Active QUEtiapine (SEROquel) 50 MG tablet 01/12/2024 Active Abilify Maintena 400 MG injection syringe 05/28/2023 5 Discontinued buPROPion SR (Wellbutrin SR) 100 MG 12 hr tablet 08/27/2023 5 Discontinued cloNIDine (Catapres) 0.1 MG tablet 12/16/2022 5 Discontinued lithium ER (Lithobid) 300 MG 12 hr tablet 12/16/2022 5 Discontinued nicotine polacrilex (Nicorette) 2 MG gum 10/29/2022 5 Discontinued perphenazine 4 MG tablet 12/16/2022 5 Discontinued QUEtiapine (SEROquel) 100 MG tablet 06/10/2023 5 Discontinued traZODone (Desyrel) 100 MG tablet 12/16/2022 5 Discontinued Active Problems Problem Noted Date Diagnosed Date History of marijuana use 06/20/2024 History of tobacco use 06/20/2024 Post traumatic stress disorder 06/20/2024 Depression 06/20/2024 Anxiety 06/20/2024 History of COVID-19 06/20/2024 BMI 26.0-26.9,adult 06/20/2024 Chronic bipolar disorder 11/24/2016 Overview (10/11/2023): 02/2018: ED, Crisis, admitted to [facility] inpatient. 03/2018: Inpatient admission; Discharged 04/2018. 01/2019: Care plan from [facility] . Likely to transfer to [facility]. 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 06/20/2024 Constipation 09/30/2015 06/20/2024 Dysmenorrhea 02/21/2015 06/20/2024 Eczema 02/21/2015 06/20/2024 Encounters Date Type Department Care Team Description 06/20/2024 10:45 AM EST Office Visit [facility] [address] [place] [id number] Agata Emery, Routine history and physical examination of adult (Primary Dx); Chronic bipolar disorder (CMS/HCC); BMI 26.0-26.9,adult; Encounter for immunization; Dietary counseling; Exercise counseling 06/20/2024 Travel 06/13/2024 Travel 06/08/2024 Patient Outreach [facility] [address] [place] [id number] Agata Emery DO Pre-visit Planning (SDOH screening negative and tobacco screening negative) 05/15/2024 Telephone [facility] [address] [place] [id number] Kameron Gates MD New patient appt. from Last 3 Months Immunizations Name Administration Dates Next Due DTaP 07/31/2004, 1,2000,06/19,2000 HPV, Quadrivalent 08/14/2014,05/05/2013,12/21/19 12 Hep B, Adolescent or Pediatric 04/28/2001,1999,2000 Hib (PRP-T) 04/08/2001, 1,2000,04/06 IPV 07/31/2004, 1,2000,04/06 Influenza live intranasal qu adrivalent LIAV4 08/14/2014,04/18/2013 MMR 07/31/2004,03/12/2001 Meningococcal MCV4P ACYW-135 12/21/2011 Pneumococcal Conjugate PCV 7 04/08/2001, 2000,2000,04/06 Tdap 06/20/2024,12/21/2011 Varicella 09/19/2007,04/08/2001 Family History Medical History Relation Name Comments Galactosemia Brother Galactosemia Mother Relation Name Status Comments Brother Mother Social History Tobacco Use Types Packs/Day Years [...] Orientation Bisexual 06/13/2024 8: 46 AM EST Last Filed Vital Signs Vital Sign Reading Time Taken Comments Blood Pressure 109/75 06/20/2024 10:50 AM EST Pulse 90 06/20/2024 10:50 AM EST Temperature 36.2 ??C (97.2 ??F) 06/20/2024 10:[address] Respiratory Rate 21 06/20/2024 10:50 AM EST Oxygen Saturation - - Inhaled Oxygen Concentration - - Weight 72.6 kg (160 lb) 06/20/2024 10:50 AM EST Height 165.1 cm (5' 5 ) 06/20/2024 10:50 AM EST Body Mass Index 26.63 06/20/2024 10:50 AM EST Plan of Treatment Upcoming Encounters Date Type Department Care Team (Late st Contact Info) Description 08/18/2024 11:00 AM EDT Office Visit [facility] [address] [place] [address] Agata Emery DO [address] [place] [address] Health Maintenance Due Date Last Done Comments HIV Screening 2000 Alcohol/Substance Use Screening 2012 Tobacco Screening 2012 Family Planning (PISQ) 01/24/2015 Hepatitis C Screening 01/24/2018 Pap Smear 01/24/2021 COVID-19 Vaccine ( season) 2024 Influenza Vaccine (#1) 2024 08/14/2014, 2012 Depression Monitoring (PHQ-9) 12/18/2024 06/20/2024, 06/20/2024 SDOH Screening 06/08/2025 06/08/2024 Depression Screening 06/20/2025 06/20/2024, 06/20/19 25 DTaP/Tdap/Td Vaccines (8 - Td or Tdap) 06/20/2034 06/20/2024, 12/21/2011, 07/31/2004, Additional history exists Zoster Vaccines (1 of 2) 01/24/2050 RSV Patients and Patients Aged 60 years or older (1 - 1-dose 75+ series) 01/24/2075 HIB Vaccines Completed 04/08/2001, 08/10, 2000, Additional history exists Pneumococcal Vaccine: Pediatrics (0 to 5 Years) and At-Risk Patients (6 to 49) Years) Aged Out 04/08/2001, 2000, 2000, Additional history exists No longer eligible based on patient's age to complete this topic Hepatitis B Vaccines Completed 04/28/2001, 2000, 2000 IPV Vaccines Completed 07/31/2004, 04/10, 2000, Additional history exists Meningococcal Vaccine Aged Out 12/21/2011 No chuck kait eligible based on patient's age to complete this topic HPV Vaccines Completed 08/14/2014, 04/10, 12/21/2011 Hepatitis A Vaccines Aged Out No long er eligible based on patient's age to complete this topic RSV under 20 months Aged Out No longe r eligible based on patient's age to complete this topic Rotavirus Vaccines Aged Out No longer eligible based on patient's age to complete this topic Insurance [employer] C3
--- OUTSIDE RECORDS SUMMARY | 2024-06-30 12:55 | XMS_ITS ---
Author Organization [facility] Address [address] [id number] Care Team Providers Care Steno Pool Supervisor Name Role Phone SAMUEL, VIOLA Unavailable [phone] REASON FOR VISIT Test results Social History Sex Assigned At : Social History Observation Description Sex Assigned At Female Encounters Encounter Location Date Provider Diagnosis [address] [id number] 01/24/2024 VIOLA BAKER Plan Of Treatment No Information Progress Notes * Lauren MEI MDOB:1999 (24 yo F)Acc No.[id number]:01/24/2024 Patient:?Lauren MEI :2000???Age:23 Y???Sex:Female Address:[address] [place] [phone] * true * Date:? Generated for Tianna katz/Vito/eTransmitting on:?06/30/2024 12:55 PM EST
--- OUTSIDE RECORDS SUMMARY | 2024-06-30 12:55 | XMS_ITS | Encounter Summary ---
Author Organization [employer] Address [address] [facility] 7 [place] [address] Care Team Providers Care Financial Specialist Name Role Phone Unavailable Primary Care Provider Unavailabl e Encounter Details Date Type Department Care Team (Late st Contact Info) Description 06/20/2024 10:45 AM EST Office Visit [facility] [address] [place], [place] [phone] Agata Emery DO [address] [place], [place] [phone] Routine history and physical examination of adult (Primary Dx); Chronic bipolar disorder (CMS/HCC); BMI 26.0-26.9,adult; Encounter for immunization; Dietary counseling; Exercise counseling Social History Tobacco Use Types Packs/Day Years [...] AM EST documented as of this encounter Last Filed Vital Signs Vital Sign Reading [...] Mass Index 26.63 06/20/2024 10:50 AM EST documented in this encounter Plan of Treatment Upcoming Encounters Date Type Department Care Team (Late st Contact Info) Description 08/18/2024 11:00 AM EDT Office Visit [facility] [address] [place] [address] Agata Emery DO [address] [place] [address] Scheduled Orders Name Type Priority Associated Diagnoses Orde r Schedule T4, Free Lab Routine Encounter for immunization Routine history and physical examination of adult Expected: 06/20/2024 (Approximate), Expires: 06/20/2025 Lipid Panel, Standard Lab Routine Encounter for immunization Routine history and physical examination of adult Expected: 06/20/2024 (Approximate), Expires: 06/20/2025 TSH Lab Routine Encounter for immunization Routine history and physical examination of adult Expected: 06/20/2024 (Approximate), Expires: 06/20/2025 Vitamin D, 25-Hydroxy, Total, Immunoassay Lab Routine Encounter for immunization Routine history and physical examination of adult Expected: 06/20/2024 (Approximate), Expires: 06/20/2025 Hepatic Function Panel Lab Routine Encounter for immunization Routine history and physical examination of adult Expected: 06/20/2024 (Approximate), Expires: 06/20/2025 Hemoglobin A1c Lab Routine Encounter for immunization Routine history and physical examination of adult Expected: 06/20/2024 (Approximate), Expires: 06/20/2025 CBC Lab Routine Encounter for immunization Routine history and physical examination of adult Expected: 06/20/2024, Expires: 06/20/2025 Basic Metabolic Panel Lab Routine Encounter for immunization Routine history and physical examination of adult Expected: 06/20/2024 (Approximate), Expires: 06/20/2025 Varicella zoster antibody, IgG Lab Routine Encounter for immunization Routine history and physical examination of adult Expected: 06/20/2024 (Approximate), Expires: 06/20/2025 Measles, Mumps, and Rubella (MMR) Antibodies??(IgG) Panel, Immune Status Lab Routine Encounter for immunization Routine history and physical examination of adult Expected: 06/20/2024 (Approximate), Expires: 06/20/2025 Hepatitis B surface antigen, EIA Lab Routine Encounter for immunization Routine history and physical examination of adult Expected: 06/20/2024 (Approximate), Expires: 06/20/2025 Chlamydia/N. Gonorrhoeae RNA, TMA, Urogenitial Microbiology Routine Encounter for immunization Routine history and physical examination of adult Ordered: 06/20/2024 HIV-1/2 Antigen and Antibodies, Fourth Generation, with Reflexes Lab Routine Encounter for immunization Routine history and physical examination of adult Expected: 06/20/2024 (Approximate), Expires: 06/20/2025 Hepatitis C Antibody with Reflex to HCV, RNA, Quantitative, Real-Time PCR Lab Routine Encounter for immunization Routine history and physical examination of adult Expected: 06/20/2024, Expires: 06/20/2025 RPR (Monitor) with Reflex to??Titer Lab Routine Encounter for immunization Routine history and physical examination of adult Expected: 06/20/2024, Expires: 06/20/2025 Hepatitis B Surface Antibody, Qualitative Lab Routine Encounter for immunization Routine history and physical examination of adult Expected: 06/20/2024 (Approximate), Expires: 06/20/2025 Hepatitis A Antibody, Total Lab Routine Encounter for immunization Routine history and physical examination of adult Expected: 06/20/2024 (Approximate), Expires: 06/20/2025 Hepatitis B Core Antibody, Total Lab Routine Encounter for immunization Routine history and physical examination of adult Expected: 06/20/2024 (Approximate), Expires: 06/20/2025 T-SPOT??.TB Lab Routine Encounter for immunization Routine history and physical examination of adult Expected: 06/20/2024 (Approximate), Expires: 06/20/2025 documented as of this encounter Visit Diagnoses Diagnosis Routine history and physical examination of adult- Primary Chronic bipolar disorder (CMS/HCC) BMI 26.0-26.9,adult Encounter for immunization Dietary counseling Dietary surveillance and counseling Exercise counseling documented in this encounter Additional Health Concerns Assessment Noted Time PHQ-9 Depression Total Score: 10 025 10:58 AM EST documented as of this encounter
--- OUTSIDE RECORDS SUMMARY | 2024-06-30 12:55 | XMS_ITS ---
Author Organization [facility] Address [address] [place] [id number] Care Team Providers Care 1St Pressman On [employer] Press Name Role Phone VIOLA BAKER Unavailable [phone] REASON FOR VISIT Counseling/Testing Social History Sex Assigned At : Social History Observation Description Sex Assigned At Female Encounters Encounter Location Date Provider Diagnosis [facility] [id number] VIOLA BAKER Plan Of Treatment No Information Progress Notes * Lauren MEI MDOB:1999 (24 yo F)Acc No.[id number]:04/26/2024 Progress Notes Patient:?Lauren MEI Provider:ABE BAKER :2000???Age:24 Y???Sex:Female D ate:04/26/2024 Address:[address] [place], [place] [phone] Subjective: * Chief Complaints: * ???1. Counseling/Testing. * Medical History:? Objective: * Vitals:? Assessment: Plan: * Treatment: * Billing Information: * Visit Code:? * Procedure Codes:? * Electronic signature of AMNA BAKER CNM on 06/30/2024 at 12:55 PM EST Sign off status: Pending * Provider:ABE BAKER Date:?04/26/2024 Generated for Tianna katz/Vito/Antonio on:?06/30/2024 12:55 PM EST
--- OUTSIDE RECORDS SUMMARY | 2024-06-30 12:55 | XMS_ITS | Encounter Summary ---
Author Organization [employer] Address 75 [facility] 7 [place] [address] Care Team Providers Care Microstrategy Developer Name Role Phone Unavailable Primary Care Provider Unavailabl e Reason for Visit * Reason Comments Pre-visit Planning SDOH screening negat yareli and tobacco screening negative Encounter Details Date Type Department Care Team ([facility] st Contact Info) Description 06/08/2024 Patient Outreach [facility] MEDICINE [address] [place], [place] [phone] Agata Emery DO [address] [place], [place] [phone] Pre-visit Planning (SDOH screening negative and tobacco screening negative) Social History Tobacco Use Types Packs/Day Years Used Date Smoking Tobacco: Never Assessed Housing Stability Answer Date Recorded What is your housing situation today? I have amycarlos serrano 06/08/[address] you [...] AM EST documented as of this encounter Progress Notes * Dione Lester - 06/08/2024 10:34 AM EST CC Dione placed successful outbound call to patient for pre-visit planning. Patient name and confirmed. Patient confirms appt date and time, and has transportation. Biggest concern for appointment at this time is none Patient advised to bring to appointment a photo id and insurance card. Appropriate screenings completed in anticipation of appointment. documented in this encounter Plan of Treatment Upcoming Encounters Date Type Department Care Team (Late st Contact Info) Description 08/18/2024 11:00 AM EDT Office Visit [facility] MEDICINE [address] [place] [address] Agata Emery DO [address] [place] [address] documented as of this encounter Visit Diagnoses Not on filedocumented in this encounter
--- OUTSIDE RECORDS SUMMARY | 2024-06-30 12:55 | XMS_ITS ---
Author Organization [facility] Address [address] [place] [phone] Care Team Providers Care Corporate Concierge Name Role Phone VIOLA BAKER Unavailable [phone] REASON FOR VISIT Counseling/Testing Social History Sex Assigned At : Social History Observation Description Sex Assigned At Female Encounters Encounter Location Date Provider Diagnosis [facility] [address] [id number] 08/2023 VIOLA BAKER Plan Of Treatment No Information Progress Notes * Lauren MEI MDOB:1999 (24 yo F)Acc No.[id number]:04/12/2024 Progress Notes Patient:?Lauren MEI Provider:ABE BAKER :2000???Age:24 Y???Sex:Female D ate:04/12/2024 Address:[address] [place], [place] [phone] Subjective: * Chief Complaints: * ???1. Counseling/Testing. * Medical History:? Objective: * Vitals:? Assessment: Plan: * Treatment: * Billing Information: * Visit Code:? * Procedure Codes:? * Electronic signature of AMNA BAKER CNM on 06/30/2024 at 12:55 PM EST Sign off status: Pending * Provider:ABE BAKER Date:?04/12/2024 Generated for Tianna katz/Vito/Antonio on:?06/30/2024 12:55 PM EST
== END 2024-06-30 13:13 | disposition home or self-care (01) ==
PROVIDERS: Visit Provider Physician Assistant
DX: S82.892A Other fracture of left lower leg, initial encounter for closed fracture (principal); Z98.890 Other specified postprocedural states; Z87.81 Personal history of (healed) traumatic fracture
CPT/HCPCS: 99024

== ENCOUNTER → 2024-06-30 12:34 | Outpatient (BNV) | payer MEDICAID, SELFPAY | PROVIDERS: Visit Provider Radiology Diagnostic Radiology | DX: M25.572 Pain in left ankle and joints of left foot (principal); S82.892D Other fracture of left lower leg, subsequent encounter for closed fracture with routine healing | CPT/HCPCS: 73610 ==

== ENCOUNTER 2024-07-21 09:17 | Emergency (ER) | payer MEDICAID, SELFPAY ==
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
[2024-07-21 09:27] VITALS: BP 112/56; PULSE 97; RESP 18; TEMP 36.3; O2SAT 98; BMI 26.4
--- OUTSIDE RECORDS SUMMARY | 2024-07-21 11:08 | XMS_ITS ---
Author Organization [facility] Address [address] [phone] Care Team Providers Care Data Assistant Name Role Phone SAMUEL, VIOLA Unavailable [phone] REASON FOR VISIT Test results Social History Sex Assigned At : Social History Observation Description Sex Assigned At Female Encounters Encounter Location Date Provider Diagnosis [address] [id number] 01/24/2024 VIOLA BAKER Plan Of Treatment No Information Progress Notes * Lauren MEI MDOB:1999 (24 yo F)Acc No.[id number]:01/24/2024 Patient:?Lauren MEI :2000???Age:23 Y???Sex:Female Address:[address] [place] [phone] * true * Date:? Generated for Toshiai sterling/Vito/eTransmitting on:?07/21/2024 11:08 AM EDT
--- OUTSIDE RECORDS SUMMARY | 2024-07-21 11:08 | XMS_ITS | Patient Health Record ---
Author Organization [facility] Address [address] [place] [id number] Care Team Providers Care Rpg Programmer Analyst Name Role Phone VIOLA BAKER Unavailable [phone] Allergies No Known Allergies Results Component Value Reference Range Notes APTIMA COMBO 2 CT/NG, Urine Reviewed date:01/18/2024 10:02:46 AM Interpretation:Chlamydia Positive Performing Lab:[facility], [facility], [place], [address] Jani Forman, Notes/Report: GONORRHEA, AMPLIFIED NEGATIVE NEGATIVE CHLAMYDIA, AMPLIFIED POSITIVE NEGATIVE DNA Test Results SEX: F : 2000 AGE: 23 [id number] CLINIC ID: [id number] SS: PHYSICIAN: VIOLA BAKER [facility] COLLECTED BY: [id number] Specimen Source: Urine Specimen Type: Urine, Roseanne PCR Medium Neisseria gonorrhoeae: NEGATIVE Normal Value: Negative Chlamydia trachomatis: POSITIVE Normal Value: Negative Test, Urine Reviewed date:01/12/2024 10:37:49 AM Interpretation:Negative Performing Lab: Notes/Report: Negative Test, Urine neg Lot # [id number] Exp. Date 11/09/2024 Urine Culture, Routine-[id number] Reviewed date:01/24/2024 10:57:09 AM Interpretation:Mixed urogenital tobias Performing Lab:[facility], [address], [address], [place], Phone - [phone], Director - [facility] Notes/Report: Urine Culture, Routine Final report Result 1 Mixed urogenital tobias 50,000-100,000 colony forming units per mL Trich vag by [id number] Reviewed date:01/27/2024 12:26:05 PM Interpretation:Negative Performing Lab:[facility], [address], [address], [place], Phone - [phone], Director - [facility] Notes/Report: Trich vag by SIENNA Negative Negative Urinalysis Reviewed date:01/27/2024 12:26:20 PM Interpretation:Leuks positive Performing Lab: Notes/Report: Leuks positive Leukocytes 500 Nitrates - Uro 0.2 Protein 15 pH 6.5 Blood - Spec [place] 1.005 Ketones 15 Bilirubin - Glucose - Reason For Referral No Information Medications Medication [...] today Encounters Encounter Location Date Provider Diagnosis [address] [id number] 01/12/2024 VIOLA BAKER Encounter for preg ana test, result negative Z32.02 and Encounter for screening for infections with a predominantly sexual mode of transmission Z11.[address] [id number] 01/19/2024 VIOLA BAKER Chlamydial infecti on A74.9 ; Encounter for screening for infections with a predominantly sexual mode of transmission Z11.3 ; HIV Screening Z11.4 ; Urinary Frequency R35.0 and Screening for other viral diseases Z11.[address] [id number] 01/21/2024 VIOLA BAKER [employer] [id number] 01/18/2024 VIOLA BAKER [employer] [id number] 01/24/2024 VIOLA BAKER Assessments Encounter Date Diagnosis [...] ATT CLAIMS [address] [place] [address] [id number] Lauren Porter Self - patient is the insured Medical (General) History Medical History History ICD Code CT 01/2024
--- OUTSIDE RECORDS SUMMARY | 2024-07-21 11:08 | XMS_ITS ---
Author Organization [facility] Address [address] [place] [phone] Care Team Providers Care Fruit Culler Name Role Phone VIOLA BAKER Unavailable [phone] REASON FOR VISIT Counseling/Testing Social History Sex Assigned At : Social History Observation Description Sex Assigned At Female Encounters Encounter Location Date Provider Diagnosis [place] [facility] [id number] VIOLA BAKER Plan Of Treatment No Information Progress Notes * Lauren MEI MDOB:1999 (24 yo F)Acc No.[id number]:04/26/2024 Progress Notes Patient:?Lauren MEI Provider:ABE BAKER :2000???Age:24 Y???Sex:Female D ate:04/26/2024 Address:[address] [place], [place] [id number] Subjective: * Chief Complaints: * ???1. Counseling/Testing. * Medical History:? Objective: * Vitals:? Assessment: Plan: * Treatment: * Billing Information: * Visit Code:? * Procedure Codes:? * Electronic signature of AMNA BAKER CNM on 07/21/2024 at 11:08 AM EDT Sign off status: Pending * Provider:ABE BAKER Date:?04/26/2024 Generated for Tianna katz/Vito/eTwilderitting on:?07/21/2024 11:08 AM EDT
--- OUTSIDE RECORDS SUMMARY | 2024-07-21 11:08 | XMS_ITS ---
Author Organization [facility] Address [address] [place] [phone] Care Team Providers Care Manager Combination Name Role Phone VIOLA BAKER Unavailable [phone] REASON FOR VISIT Counseling/Testing Social History Sex Assigned At : Social History Observation Description Sex Assigned At Female Encounters Encounter Location Date Provider Diagnosis [place] [facility] [id number] 08/2023 VIOLA BAKER Plan Of Treatment No Information Progress Notes * Lauren MEI MDOB:1999 (24 yo F)Acc No.[id number]:04/12/2024 Progress Notes Patient:?Lauren MEI Provider:ABE BAKER :2000???Age:24 Y???Sex:Female D ate:04/12/2024 Address:[address] [place], [place] [id number] Subjective: * Chief Complaints: * ???1. Counseling/Testing. * Medical History:? Objective: * Vitals:? Assessment: Plan: * Treatment: * Billing Information: * Visit Code:? * Procedure Codes:? * Electronic signature of AMNA BAKER CNM on 07/21/2024 at 11:08 AM EDT Sign off status: Pending * Provider:ABE BAKER Date:?04/12/2024 Generated for Tianna katz/Vito/eTwilderitting on:?07/21/2024 11:08 AM EDT
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
[2024-07-21 12:49] VITALS: BP 112/56; PULSE 97; RESP 18; TEMP 36.3; O2SAT 98
== END 2024-07-21 13:06 | disposition home or self-care (01) ==
PROVIDERS: Emergency Provider Emergency Medicine; PCP Family Medicine
DX: S09.90XA Unspecified injury of head, initial encounter (principal); S19.9XXA Unspecified injury of neck, initial encounter; R51.9 Headache, unspecified; M54.2 Cervicalgia; V43.62XA Car passenger injured in collision with other type car in traffic accident, initial encounter; Y93.9 Activity, unspecified; Y92.410 Unspecified street and highway as the place of occurrence of the external cause; Y99.8 Other external cause status; F17.210 Nicotine dependence, cigarettes, uncomplicated
CPT/HCPCS: 70450; 72125; 99283; 99284

== ENCOUNTER → 2024-07-21 10:53 | Outpatient (BNV) | payer MEDICAID, SELFPAY | PROVIDERS: Emergency Provider Emergency Medicine; PCP Family Medicine; Visit Provider Radiology Diagnostic Radiology | DX: M54.2 Cervicalgia (principal); R51.9 Headache, unspecified | CPT/HCPCS: 70450; 72125 ==

== ENCOUNTER 2024-08-17 13:00 | Outpatient (RCR) | payer MEDICAID, SELFPAY ==
--- NOTE | 2024-07-24 15:12 | MHC.PT.EP ---
[facility] [place] Office [place] Office [place] Office [address] [phone] F: [phone] F: [phone] F: [phone] F: [phone] Physical Therapy Plan of Care Date of Evaluation: 07/24/24 Date of Surgery: 04/12/24 Diagnosis: This is a 24 yo female presenting to skilled PT with a script for s/p ORIF of L ankle on 04/12. Assessment: This is a 24 yo female presenting to skilled PT with a script for s/p ORIF of L ankle on 04/12. Patient initially broke her ankle when she feel down the stairs at her program. She is being followed by [facility] orth[facility] who did her surgery. At the last appointment with ortho the note states: In the office today, new order for physical therapy has been placed (due to not having a PCP). I would like the patient to wean out of the tall walking boot within the next 2 weeks. She should wean into a supportive walking sneaker. I would like to see her in 6 weeks after physical therapy, sooner if needed. Patient is here still in a walking boot WBAT but without AD. She reports that she has been unable to walk without the boot due to weakness and does not like the feeling. She has even been showering in the boot, so it has been on 30/11. Pain is located medial and lateral ankle joint, achy pain. Assessment reveals pain that ranges from up to a 7/10 at the worst. Patient demos decreased ankle ROM, strength of ankle and lower extremity, TTP at medial ankle incisions and impaired posture with forward head and rounded shoulders as well as decreased gait and balance expected s/p ORIF. Based on functional limitations, impaired QOL and pain tolerance patient is a good candidate for skilled PT 2x/wk for 4wks. Frequency and Duration: The patient will be seen 2x/wk for 4wks Short Term Goals: Pt will demonstrate improved postural awareness and understanding of core engagement with supine and standing tasks without cues throughout session to improve balance safety as well as improve strength in 2 weeks. Pt will continue to reinforce precautions, sitting, standing and ADL modifications with proper body mechanics and prevent falls in 2 wks. pt will fully wean out of boot and use of AD's in 2 weeks Equal Opportunity Representative Goals: Pt will demonstrate improved outcome measure by 10 points in 4 weeks for improved functional mobility. Pt will demonstrate ability to bend and lift WNL min to no pain for household tasks in 4 wks. Pt will be I in HEP and compliant in 4wks Pt will demo WFL ankle AROM in 4wks Treatment Plan: Modalities to reduce pain, spasms and effusion. Manual therapy to restore motion and function. Therapeutic exercise to improve strength and flexibility. Neuromuscular re-education for posture and balance. Therapeutic activities to return to functional activities of daily living. Electronically signed by: Nickie Bright PT Please sign and return to therapist. Thank you for your referral.
--- NOTE | 2024-09-18 12:47 | MHC.PT.DC ---
[facility] [place] Office [place] Office [place] Office [address] Thomas Arthur [address] [phone] F: [phone] F: [phone] F: [phone] F: [phone] Physical Therapy Discharge Report Diagnosis: This is a 24 yo female presenting to skilled PT with a script for s/p ORIF of L ankle on 04/12. Date of Surgery: 04/12/24 Date of Evaluation: 07/24/24 Date of Discharge: 09/18/24 Treatments to Date: 8 Cancellations to Date: 0 No Shows to Date: 0 Discharge Status: Discharge Summary: At the patient's last tx session, she was continued with ed on HEP and importance of proper footwear. She continues to walk on her toes in non supportive footwear (she reports that she does this because she wants her gastrocs to look nice) even with education from PT. She will follow up with ortho in about a month. She also demos little carryover on her own with HEP. At this time skilled PT is no longer indicated. DC to HEP. Electronically signed by: Nickie Bright, PT Please sign and return to therapist. Thank you for your referral.
== END 2024-09-18 12:47 | disposition home or self-care (01) ==
LOC: HO.PTCHIC 13:00
PROVIDERS: PCP Family Medicine; Visit Provider Physician Assistant
DX: S82.892D Other fracture of left lower leg, subsequent encounter for closed fracture with routine healing (principal); X58.XXXD Exposure to other specified factors, subsequent encounter; Z87.81 Personal history of (healed) traumatic fracture; Z98.890 Other specified postprocedural states
CPT/HCPCS: 97110; 97112; 97161; 97162

== ENCOUNTER 2024-08-18 09:25 | Outpatient (REF) | payer MEDICAID, SELFPAY ==
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
[2024-08-18 11:45] LABS: Hematocrit 37.3 % (37.0-47.0); Hemoglobin 12.9 g/dl (12.0-16.0); Mean Corpuscular HGB Conc 34.6 g/dl (31.0-35.0); Mean Corpuscular Hemoglobin 30.6 pg (27.0-33.0); Mean Corpuscular Volume 88.4 fL (80.0-98.0); Mean Platelet Volume 10.1 fL (9.4-12.3); Platelet Count 202 X10*3/uL (160-400); Red Blood Count 4.22 X10*6/uL (4.20-5.50); Red Cell Distribution Width 11.9 % (11.0-16.0); White Blood Count 6.2 X10*3/uL (4.8-10.8)
[2024-08-18 11:58] LABS: Estimated Average Glucose 103 mg/dL; Hemoglobin A1C 113.4002 umol/L; Hemoglobin A1c % 5.2 % (<6.0); Total Hemoglobin (HGBA1C) 3447.4161 umol/L
[2024-08-18 12:13] LABS: Alanine Aminotransferase 11 U/L (0-31); Albumin Level 3.9 g/dL (3.5-5.0); Alkaline Phosphatase 58 U/L (39-117); Anion Gap 9 (12-20); Aspartate Amino Transferase 26 U/L (5-31); Bilirubin Direct 0.1 mg/dL (0.0-0.5); Bilirubin Total 0.4 mg/dL (0.0-1.0); Blood Urea Nitrogen 8 mg/dL (9-16); Calcium 8.9 mg/dL (8.4-10.2); Carbon Dioxide 25 mmol/L (22-29); Chloride 106 mmol/L (96-108); Cholesterol 152 mg/dL (<200); Estimated Glomerular Filt Rate > 60; Glucose Random 120 mg/dL (60-115); HDL Cholesterol 60 mg/dL (>40); LDL Cholesterol Calculated 84 mg/dL (<100); Potassium 3.7 mmol/L (3.3-5.1); Sodium 136 mmol/L (135-145); Triglycerides 42 mg/dL (<150)
[2024-08-18 12:20] LABS: HBS Num1 0.95 mIU/mL (0-7.99); HBc Num1 0.13 S/CO (0.00-0.79); HBsAGNum1 0.26 S/CO (0.00-0.99); HIV AB/AG Nonreactive (Nonreactive); HIV Num 1 0.06 S/CO (0.00-0.99); Hepatitis B Core Antibody Nonreactive (Nonreactive); Hepatitis B Surface Antigen Negative (Negative); ~HepC Num1 0.14 S/CO (0.00-0.79); ~Hepatitis B Surface Antibody NONREACTIVE (Nonreactive); ~Hepatitis C Antibody Nonreactive (Nonreactive)
[2024-08-18 12:35] LABS: Free T4 (Free Thyroxine) 0.87 ng/dL (0.71-1.85); Thyroid Stimulating Hormone 3.75 uIU/mL (0.32-4.0); Vitamin D 25-OH Total 21.2 ng/mL (>30)
[2024-08-18 14:44] LABS: CT PCR NOT DETECTED (Not Detect.); NG PCR NOT DETECTED (Not Detect.)
[2024-08-20 13:28] LABS: RPR Rapid Plasma Reagin NON-REACTIVE (NON-REACTIVE)
[2024-08-21 11:59] LABS: TS Negative Control Passed; TS Panel A 0; TS Panel B 0; TS Positive Control Passed; TSpotTB Negative (Negative)
[2024-08-21 17:29] LABS: Varicella IgG Antibody 1.07 S/CO
[2024-08-21 17:53] LABS: Rubella IgG Antibody 2.18 Index; Rubeola IgG (Measles) <13.50 AU/mL
[2024-08-22 08:20] LABS: Hepatitis A Antibody IgG Nonreactive (Nonreactive); ~Hepatitis A Antibody IgG 0.28 S/CO (0.00-0.99)
== END 2024-08-18 09:26 | disposition home or self-care (01) ==
LOC: HO.HHCL 09:25
PROVIDERS: Visit Provider Family Medicine
DX: Z00.00 Encounter for general adult medical examination without abnormal findings (principal)
CPT/HCPCS: 80048; 80061; 80076; 82306; 83036; 84439; 84443; 85027; 86481; 86592; 86704; 86706; 86708; 86735; 86762; 86765; 86787; 86803; 87340; 87389; 87491; 87591

== ENCOUNTER 2024-10-30 22:38 | Emergency (ER) | payer MEDICAID, SELFPAY ==
[2024-10-30 22:54] VITALS: BP 107/64; PULSE 91; RESP 16; TEMP 36.9; O2SAT 98; BMI 19.4
--- NOTE | 2024-10-30 22:59 | MHC.EDTECH ---
pt changed over with security, all belongings searched and locked in locker #4 in pod.
[2024-10-30 23:14] LABS: MANUAL DIFF FLAG NO
[2024-10-30 23:15] LABS: Basophils Percent Auto 0.5 % (0-2); Eosinophils Percent Auto 0.5 % (0-4); Hematocrit 34.8 % (37.0-47.0); Hemoglobin 12.4 g/dl (12.0-16.0); Imm Gran Abs Auto 0.03 X10*3/uL (0.00-0.03); Imm Gran Pct Auto 0.5 % (0.0-0.4); Lymphocytes Absolute Auto 2.4 X10*3/uL (1.2-4.9); Lymphocytes Percent Auto 39.5 % (20-40); Mean Corpuscular HGB Conc 35.6 g/dl (31.0-35.0); Mean Corpuscular Hemoglobin 31.3 pg (27.0-33.0); Mean Corpuscular Volume 87.9 fL (80.0-98.0); Mean Platelet Volume 9.3 fL (9.4-12.3); Monocytes Absolute Auto 0.6 X10*3/uL (0.1-1.2); Monocytes Percent Auto 9.1 % (2-11); Neutrophils Absolute Auto 3.1 x10*3/uL (2.0-8.3); Neutrophils Percent Auto 49.9 % (45-73); Platelet Count 211 X10*3/uL (160-400); Red Blood Count 3.96 X10*6/uL (4.20-5.50); Red Cell Distribution Width 11.7 % (11.0-16.0); White Blood Count 6.2 X10*3/uL (4.8-10.8)
[2024-10-30 23:17] LABS: Appearance Urine Clear; Color Urine Yellow; Glucose Urine UA Negative (Negative); Leukocyte Esterase Urine Negative (Negative); Nitrite Urine Negative (Negative); PH 6.5 (5.0-9.0); Specific Gravity - Urine 1.015 (1.005-1.025); Urine Blood Negative (Negative); Urine Ketones Trace mg/dL (Negative); Urine Protein Negative (Neg-Trace)
[2024-10-30 23:27] LABS: Amphetamine Screen Urine Not Detected (Not Detect); Barbiturates, Urine Not Detected (Not Detect); Benzodiazepines Screen Urine Not Detected (Not Detect); Buprenorphine Scr Not Detected (Not Detect); Cannabinoid Screen Urine Not Detected (Not Detect); Cocaine Screen Urine Not Detected (Not Detect); Fentanyl, urine Not Detected (Not Detect); Methadone Screen, Urine Not Detected (Not Detect); Opiate Screen Urine Not Detected (Not Detect); Oxycodone Screen Urine Not Detected (Not Detect); Phencyclidine Screen Urine Not Detected (Not Detect)
[2024-10-30 23:34] LABS: Alanine Aminotransferase 14 U/L (0-31); Alkaline Phosphatase 58 U/L (39-117); Anion Gap 12 (12-20); Aspartate Amino Transferase 26 U/L (5-31); Bilirubin Total 0.2 mg/dL (0.0-1.0); Blood Urea Nitrogen 9 mg/dL (9-16); Calcium 8.8 mg/dL (8.4-10.2); Carbon Dioxide 24 mmol/L (22-29); Chloride 106 mmol/L (96-108); Estimated Glomerular Filt Rate > 60; Glucose Random 113 mg/dL (60-115); Potassium 3.9 mmol/L (3.3-5.1); Sodium 138 mmol/L (135-145); Total Protein 6.9 g/dL (6.5-8.0)
[2024-10-30 23:37] LABS: Ethanol < 10 mg/dL
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
--- OUTSIDE RECORDS SUMMARY | 2024-10-31 00:44 | XMS_ITS | Clinical Summary ---
Author Organization [employer] Address [address] [place] [address] 7 [place] [address] Care Team Providers Care Regulatory Intern Name Role Phone Agata Emery Primary Care Provider Allergies Active Allergy Reactions Criticality Noted Date [...] QUEtiapine (SEROquel) 50 MG tablet 01/12/2024 Active lamoTRIgine (LaMICtal) 25 MG tablet 08/02/2024 Active cholecalciferol (Vitamin D-3) 50 MCG (1999 UT) capsule Take 1 capsule (50 mcg) by mouth Once per day. 90 capsule 3 08/21/2024 Active Active Problems Problem Noted Date Diagnosed Date History of marijuana use 06/20/2024 History of tobacco use 06/20/2024 Post traumatic stress disorder 06/20/2024 Depression 06/20/2024 Anxiety 06/20/2024 History of COVID-19 06/20/2024 BMI 26.0-26.9,adult 06/20/2024 Chronic bipolar disorder 11/24/2016 Overview (10/11/2023): 02/2018: ED, Crisis, admitted to [facility] inpatient. 03/2018: Inpatient admission; Discharged 04/2018. 01/2019: Care plan from [facility] . Likely to transfer to [facility]. 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 Constipation 09/30/2015 06/20/2024 Dysmenorrhea 02/21/2015 06/20/2024 Eczema 02/21/2015 06/20/2024 Encounters Date Type Department Care Team Description 08/21/2024 Refill [facility] [address] [place] [address] Agata Emery DO 08/18/2024 11:00 AM EDT Office Visit [facility] [address] [place] [address] Agata Emery DO Chronic bipolar disorder (CMS/HCC) (Primary Dx); Post traumatic stress disorder; Healthcare maintenance 08/18/2024 Travel from Last 3 Months Immunizations Immunization Administration Dates Next Due DTaP 07/31/2004, 1,2000,06/19,2000 [...] Packs/Day Years Used Date Smoking Tobacco: Never Smokeless Tobacco: Never Alcohol Use Standard Drinks/Week Comments Never 0 (1 standard drink = 0.6 oz pur e alcohol) Depression Answer Date Recorded Patient Health Questionnaire-9 [...] Sign Reading Time Taken Comments Blood Pressure 110/70 08/18/2024 11:04 AM EDT Pulse 90 08/18/2024 11:04 AM EDT Temperature 36.2 C (97.1 F) 08/18/2024 11:04 AM EDT Respiratory Rate 20 08/18/2024 11:04 AM EDT Oxygen Saturation 98% 08/18/2024 11:04 AM EDT Inhaled Oxygen Concentration - - Weight 78.6 kg (173 lb 4 oz) 08/18/2024 11:04 AM EDT Height 167.6 cm (5' 6 ) 08/18/2024 11:04 AM EDT Body Mass Index 27.96 08/18/2024 11:04 AM EDT Plan of Treatment Health Maintenance Due Date Last Done Comments Family Planning (PISQ) 01/24/2015 Pap Smear 01/24/2021 COVID-19 Vaccine ( season) 2024 Depression Monitoring 12/18/2024 06/20/2024, 025 Influenza Vaccine (Season Ended) 2025 08/14/2014, 04/18/2013 SDOH Screening 06/08/2025 06/08/2024 Alcohol/Substance Use Screening 08/18/2025 08/18/2024 Disability Screening 08/18/2025 08/18/2024 Tobacco Screening 08/18/2025 08/18/2024 DTaP/Tdap/Td Vaccines (8 - Td or Tdap) 06/20/2034 06/20/2024, 12/21/2011, 07/31/2004, Additional history exists Zoster Vaccines (1 of 2) 01/24/2050 RSV Patients and Patients Aged 60 years or older (1 - 1-dose 75+ series) 01/24/2075 HIB Vaccines Completed 04/08/2001, 08/10, 2000, Additional history exists Pneumococcal Vaccine: Pediatrics (0 to 5 Years) and At-Risk Patients (6 to 49) Years Aged Out 04/08/2001, 2000, 2000, Additional history exists No longer eligible based on patient's age to complete this topic Hepatitis B Vaccines Completed 04/28/2001, 2000, 2000 IPV Vaccines Completed 07/31/2004, 04/10, 2000, Additional history exists Meningococcal Vaccine Aged Out 12/21/2011 No chuck kait eligible based on patient's age to complete this topic HPV Vaccines Completed 08/14/2014, 04/10, 12/21/2011 HIV Screening Completed 08/18/2024 Hepatitis C Screening Completed 08/18/2024 Hepatitis A Vaccines Aged Out No long er eligible based on patient's age to complete this topic Meningococcal B Vaccine Aged Out No l onger eligible based on patient's age to complete this topic RSV under 20 months Aged Out No longe r eligible based on patient's age to complete this topic Rotavirus Vaccines Aged Out No longer eligible based on patient's age to complete this topic Procedures Procedure Name Priority Date/Time Associated Diagnosis Comments T-SPOT(R).TB Routine 08/18/2024 9:29 AM EDT Encounter for immunization Routine history and physical examination of adult HEPATITIS B CORE AB TOTAL Routine 08/18/2024 9:29 AM EDT Encounter for immunization Routine history and physical examination of adult HEPATITIS A ANTIBODY, TOTAL Routine 08/18/2024 9:29 AM EDT Encounter for immunization Routine history and physical examination of adult HEPATITIS B SURFACE ANTIBODY, QUALITATIVE Routine 08/18/2024 9:29 AM EDT Encounter for immunization Routine history and physical examination of adult RPR (MONITOR) W/REFL TITER Routine 08/18/2024 9:29 AM EDT Encounter for immunization Routine history and physical examination of adult HEPATITIS C AB W/REFL TO HCV RNA, QN, PCR Routine 08/18/2024 9:29 AM EDT Encounter for immunization Routine history and physical examination of adult HIV 1/2 ANTIGEN/ANTIBODY, FOURTH GENERATION W/RFL Routine 08/18/2024 9:29 AM EDT Encounter for immunization Routine history and physical examination of adult HEPATITIS B SURFACE ANTIGEN, EIA Routine 08/18/2024 9:29 AM EDT Encounter for immunization Routine history and physical examination of adult MEASLES, MUMPS, AND RUBELLA (MMR) AB (IGG) PANEL, IMMUNE STATUS Routine 08/18/2024 9:29 AM EDT Encounter for immunization Routine history and physical examination of adult VARICELLA ZOSTER ANTIBODY, IGG Routine 08/18/2024 9:29 AM EDT Encounter for immunization Routine history and physical examination of adult BASIC METABOLIC PANEL Routine 08/18/2024 9:29 AM EDT Encounter for immunization Routine history and physical examination of adult CBC Routine 08/18/2024 9:29 AM EDT Encounter for immunization Routine history and physical examination of adult HEMOGLOBIN A1C Routine 08/18/2024 9:29 AM EDT Encounter for immunization Routine history and physical examination of adult HEPATIC FUNCTION PANEL Routine 08/18/2024 9:29 AM EDT Encounter for immunization Routine history and physical examination of adult VITAMIN D,25-OH,TOTAL,IA Routine 08/18/2024 9:29 AM EDT Encounter for immunization Routine history and physical examination of adult TSH Routine 08/18/2024 9:29 AM EDT Encounter for immunization Routine history and physical examination of adult LIPID PANEL, STANDARD Routine 08/18/2024 9:29 AM EDT Encounter for immunization Routine history and physical examination of adult T4, FREE Routine 08/18/2024 9:29 AM EDT Encounter for immunization Routine history and physical examination of adult CHLAMYDIA/N. GONORRHOEAE RNA, TMA, UROGENITAL Routine 08/18/2024 9:29 AM EDT Encounter for immunization Routine history and physical examination of adult from Last 3 Months Results * (ABNORMAL) Vitamin D, 25-Hydroxy, Total, Immunoassay (08/18/2024 9:29 AM EDT) [facility] Signature Vitamin D 25-OH Total 21.2(L) >30 ng/mL [facility] Comment: Health Based Reference Values*< 20 ng/mL Lktmyucxx85-98 ng/mL Insufficient> 30 ng/mL Sufficient*Molly HANSON. N Engl J Med. 2007;357:266-280There is no well-established upper level of normal vitamin Dlevels. Some laboratories use 50 ng/mL as an upper limit ofnormal. However, toxicity is patient-dependent and may occurat any level. Careful correlation with the patient'spresentation is necessary and, if there is concern forvitamin D toxicity, treatment should be consideredirrespective of the serum level.Care must be taken in interpreting Vitamin D results fromdifferent laboratories and methodologies. Published datademonstrated that results from patients undergoinghemodialysis may show a negative bias when tested withvarious automated 25-OH vitamin D assays when compared toLC-MS/MS.When testing samples from patients whose predominant form ofVitamin D is Vitamin D2, such as patients receiving VitaminD2 supplementation, results that are subtherapeutic shouldbe confirmed with another method such as LC-MS/MS. Blood Venous blood specimen / Unknown 08/18/2024 9:29 AM EDT 08/18/2024 11:31 AM EDT Agata Emery DO LAB BLOOD ORDERABLES Final R esult [facility] [address] [place] [phone] * T-SPOT??.TB (08/18/2024 9:29 AM EDT) [facility] T Spot TB Negative Negative [facility] Comment:A negative test resu lt does not exclude the possibilityof exposure to or infection with Mycobacteriumtuberculosis (M. tuberculosis). Patients with recentexposure to TB infected individuals exhibiting anegative T-SPOT.TB result should be considered forretesting within 6 weeks or if other relevant clinicalsymptoms indicate. Results from T-SPOT.TB testing mustbe used in conjunction with each individual'sepidemiological history, current medical status,and results of other diagnostic evaluations.The T-SPOT.TB test is qualitative and results arereported as positive, borderline, or negative, giventhat the test controls perform as expected. In linewith the Centers for Disease Control and Prevention's2010 recommendation to report quantitative measurementsalongside the qualitative result, the laboratoryprovides spot counts for informational purposes only.The T-SPOT.TB test should not be interpreted as aquantitative test. TS PANEL A 0 [facility] TS PANEL B 0 [facility] Negative Control Passed [facility] Positive Control Passed [facility] Comment:For additional infor kylie, please refer tohttp://education.[employer]/faq/[email or web address](This link is being provided for informational/educational purposes only.)THIS TEST WAS PERFORMED AT:[facility] [id number] [place] [address]KNZIETYHOLLI LUBIN MD,PHD 08/18/2024 9:29 AM EDT 08/18/2024 11:31 AM EDT Agata Emery DO LAB BLOOD ORDERABLES Final R esult [facility] [address] [place] [phone] * (ABNORMAL) Measles, Mumps, and Rubella (MMR) Antibodies??(IgG) Panel, Immune Status (08/18/2024 9:29 AM EDT) Mumps Virus IgG Antibody 10.90(A) AU/mL [facility] Comment:AU/mL Interpretation ------- <9.00 Not consistent with immunity9.00-10.99 Equivocal>10.99 Consistent with immunityThe presence of mumps IgG antibody suggests immunizationor past or current infection with mumps virus. Rubella IgG Antibody 2.18 Index [facility] Comment:Index Interpretation ----- <0.90 Not consistent with immunity 0.90-0.99 Equivocal > or = 1.00 Consistent with immunityThe presence of rubella IgG antibody suggestsimmunization or past or current infection withrubella virus.THIS TEST WAS PERFORMED AT:[facility] [address] [id number] Yariel PABON IgG (Measles) <13.50(A ) AU/mL [facility] Comment:AU/mL Interpretation ----- <13.50 Not consistent with vwiljfrv09.50-16.49 Equivocal>16.49 Consistent with immunityThe presence of measles IgG suggests immunization orpast or current infection with measles virus.For additional information, please refer tohttp://mPATH.Viewpoints/faq/LDE420(This link is being provided for informational/educational purposes only.) Blood Venous blood specimen / Unknown 08/18/2024 9:29 AM EDT 08/18/2024 11:31 AM EDT Agata Emery LAB BLOOD ORDERABLES Final R esult Performing Organization Address [facility]/ZIP Co de Phone Number [facility] [address] [place] [phone] * Hepatitis C Antibody with Reflex to HCV, RNA, Quantitative, Real-Time PCR (08/18/2024 9:29 AM EDT) Hepatitis C Antibody Nonreactive Nonreactive [facility] Comment:Antibodies to HCV no t detected; does not exclude early acuteHCV infection. Blood Venous blood specimen / Unknown 08/18/2024 9:29 AM EDT 08/18/2024 11:31 AM EDT Agata Emery LAB BLOOD ORDERABLES Final R esult Performing Organization Address City/[facility]/ZIP Co de Phone Number [facility] [address] [place] [phone] * Hepatitis A Antibody, Total (08/18/2024 9:29 AM EDT) Hepatitis A Antibody IgG Nonreactive Nonreactive [facility] Blood Venous blood specimen / Unknown 08/18/2024 9:29 AM EDT 08/18/2024 11:31 AM EDT us Agata Rupert DO LAB BLOOD ORDERABLES Final R esult [facility] [address] [place] [phone] * Chlamydia/N. Gonorrhoeae RNA, TMA, Urogenitial (08/18/2024 9:29 AM EDT) CT PCR NOT DETECTED Not Detect. [facility] Comment:A not detected test result does not exclude the possibilityof infection because test results can be affected byimproper specimen collection, concurrent antibiotic therapy,or the number of organisms in the specimen which may bebelow the sensitivity of the test. As with many diagnostictests, results from the Xpert CT/NG assay should beinterpreted in conjunction with other laboratory andclinical data available to the clinician.Xpert CT/NG performance has not been evaluated in patientsless than 14 years of age. The assay should not be used forthe evaluationof suspected sexual abuse or for other medico-legalindications. Additional testing is recommended in anycircumstance when false positive or false negative resultscould lead to adverse medical, social or psychologicalconsequences. NG PCR NOT DETECTED Not Detect. [facility] Comment:A not detected test result does not exclude the possibilityof infection because test results can be affected byimproper specimen collection, concurrent antibiotic therapy,or the number of organisms in the specimen which may bebelow the sensitivity of the test. As with many diagnostictests, results from the Xpert CT/NG assay should beinterpreted in conjunction with other laboratory andclinical data available to the clinician.Xpert CT/NG performance has not been evaluated in patientsless than 14 years of age. The assay should not be used forthe evaluationof suspected sexual abuse or for other medico-legalindications. Additional testing is recommended in anycircumstance when false positive or false negative resultscould lead to adverse medical, social or psychologicalconsequences. Urine Urethral structure / Unknown 08/18/2024 9:29 AM EDT 08/18/2024 11:42 AM EDT Narrative [facility] - 08/18/2024 2:44 PM EDT Urine Agata Emery DO LAB MICROBIOLOGY - GENERAL O RDERABLES Final Result Performing Organization Address [facility] Co de Phone Number [facility] [address] [place] [phone] * Hepatitis B surface antigen, EIA (08/18/2024 9:29 AM EDT) Hepatitis B Surface Ag Negative Negative [facility] Blood Venous blood specimen / Unknown 08/18/2024 9:29 AM EDT 08/18/2024 11:31 AM EDT us Agata Emery DO LAB BLOOD ORDERABLES Final R esult Performing Organization Address [facility] Co de Phone Number [facility] [address] [place] [phone] * Hepatitis B Core Antibody, Total (08/18/2024 9:29 AM EDT) Pathologist [facility] Hepatitis B Core Antibody Nonreactive Nonreactive [facility] Blood Venous blood specimen / Unknown 08/18/2024 9:29 AM EDT 08/18/2024 11:31 AM EDT Agata Emery DO LAB BLOOD ORDERABLES Final R esult Performing Organization Address [facility] Co de Phone Number [facility] [address] [place] [phone] * RPR (Monitor) with Reflex to??Titer (08/18/2024 9:29 AM EDT) RPR (Monitor) w/Refl Titer NON-REACTI VE NON-REACT AWILDA [facility] Comment:THIS TEST WAS PERFOR MED AT:[facility] [place] [id number] PERDUE MD Rapid Plasma Reagin Ab Titer TNP [facility] Blood Venous blood specimen / Unknown 08/18/2024 9:29 AM EDT 08/18/2024 11:31 AM EDT us Agata Rupert DO LAB BLOOD ORDERABLES Final R esult Performing Organization Address City/[facility]/ZIP Co de Phone Number [facility] [address] [place] [phone] * HIV-1/2 Antigen and Antibodies, Fourth Generation, with Reflexes (08/18/2024 9:29 AM EDT) Pathologist [facility] HIV AB/AG Nonreactive Nonreactive [facility] Comment:HIV-1 p24 Ag and/or HIV-1/HIV-2 Ab not detected.A test result that is nonreactive does not exclude thepossibility of exposure to or infection with HIV-1 and/orHIV-2. Nonreactive results in this assay for individualswith prior exposure to HIV-1 and/or HIV-2 may be due toantigen and antibody levels that are below the limit ofdetection of this assay.The [employer] HIV Ag/Ab Combo assay result andsupplemental assay results should be interpreted inconjunction with the patient's clinical presentation,history and other laboratory results. If the results areinconsistent with clinical evidence, additional testing issuggested to confirm the result. Blood Venous blood specimen / Unknown 08/18/2024 9:29 AM EDT 08/18/2024 11:31 AM EDT us Agata Emery DO LAB BLOOD ORDERABLES Final R esult Performing Organization Address City/[facility]/ZIP Co de Phone Number [facility] [address] [place] [phone] * Hepatitis B Surface Antibody, Qualitative (08/18/2024 9:29 AM EDT) Pathologist [facility] ~Hepatitis B Surface Antibody NONREACTIVE Nonreactive [facility] Comment:Nonreactive: < 8.00 mIU/mL Blood Venous blood specimen / Unknown 08/18/2024 9:29 AM EDT 08/18/2024 11:31 AM EDT us Agata Emery DO LAB BLOOD ORDERABLES Final R esult [facility] [address] [place] [address] [phone] * CBC (08/18/2024 9:29 AM EDT) White Blood Count 6.2 4.8 - 10.8 X10*3/uL [facility] Red Blood Count 4.22 4.20 - 5.50 X10*6/uL [facility] Hemoglobin 12.9 12.0 - 16.0 g/dl [facility] Hematocrit 37.3 37.0 - 47.0 % [facility] Mean Corpuscular Volume 88.4 80.0 - 98.0 fL [facility] Mean Corpuscular Hemoglobin 30.6 27.0 - 33.0 pg [facility] Mean Corpuscular HGB Conc 34.6 31.0 - 35.0 g/dl [facility] Red Cell Distribution Width 11.9 11.0 - 16.0 % [facility] Platelet Count 202 160 - 400 X10*3/uL [facility] Mean Platelet Volume 10.1 9.4 - 12.3 fL [facility] NRBC Pct Auto 0.0 0.0 - 0.2 /100WBC [facility] NRBC Abs Auto 0.000 0.0 - 0.012 X10*3/uL [facility] Blood Venous blood specimen / Unknown 08/18/2024 9:29 AM EDT 08/18/2024 11:31 AM EDT us Agata Emery DO LAB BLOOD ORDERABLES Final R esult [facility] [address] [place] [phone] * Varicella zoster antibody, IgG (08/18/2024 9:29 AM EDT) Varicella IgG Antibody 1.07 S/CO [facility] Comment:Signal to Cut-off S/ CO Interpretation --------- <1.00 Negative - Antibody not detected > or = 1.00 Positive - Antibody detected A positive result indicates that the patient has antibody to VZV but does not differentiate between an active or past infection. The clinical diagnosis must be interpreted in conjunction with the clinical signs and symptoms of the patient. This assay reliably measures immunity due to previous infection but may not be sensitive enough to detect antibodies induced by vaccination. Thus, a negative result in a vaccinated individual does not necessarily indicate susceptibility to VZV infection. A more sensitive test for vaccination-induced immunity is Varicella Zoster Virus Antibody Immunity Screen, ACIF.THIS TEST WAS PERFORMED AT:[facility] [address] [id number] PERDUE MD Blood Venous blood specimen / Unknown 08/18/2024 9:29 AM EDT 08/18/2024 11:31 AM EDT Agata Emery DO LAB BLOOD ORDERABLES Final R esult [facility] [address] [place] [phone] * TSH (08/18/2024 9:29 AM EDT) Thyroid Stimulating Hormone 3.75 0.32 - 4.0 uIU/mL [facility] Comment:Note: A sustained TS H level above 2.5 uIU/mL may warrant further investigation. TSH 3rd Generation ([facility]) Blood Venous blood specimen / Unknown 08/18/2024 9:29 AM EDT 08/18/2024 11:31 AM EDT us Agata Emery LAB BLOOD ORDERABLES Final R esult Performing Organization Address City/[facility]/ZIP Co de Phone Number [facility] [address] [place] [phone] * T4, Free (08/18/2024 9:29 AM EDT) Free T4 (Free Thyroxine) 0.87 0.71 - 1.85 ng/dL [facility] Blood Venous blood specimen / Unknown 08/18/2024 9:29 AM EDT 08/18/2024 11:31 AM EDT Agata Emery LAB BLOOD ORDERABLES Final R esult Performing Organization Address [facility] Co de Phone Number [facility] [address] [place] [phone] * Hemoglobin A1c (08/18/2024 9:29 AM EDT) Hemoglobin A1c 5.2 <6.0 % [facility] Comment:Hemoglobin A1C Refer ence Range Adults: 4.8 - 6.0 % Non diabetic: < 6.0 % Goal: < 7.0 %Additional Action Suggested: > 8.0 %Note: Hemoglobin A1c results are invalid for patients with abnormal amounts of HbF. Blood transfusions may impact the HbA1c concentration in the patient sample. Estimated Average Glucose 103 mg/dL [facility] Comment:eAG = Estimated ave rage glucose which is %A1C expressed asaverage glucose, using the formula of the F5E-SnccqxnYvcdzrr Glucose study (ADAG), Diabetes Care, Vol.31,#8,2007 Blood Venous blood specimen / Unknown 08/18/2024 9:29 AM EDT 08/18/2024 11:31 AM EDT Agata Emery DO LAB BLOOD ORDERABLES Final R esult Performing Organization Address [facility] Co de Phone Number [facility] [address] [place] [phone] * Hepatic Function Panel (08/18/2024 9:29 AM EDT) Bilirubin, Total 0.4 0.0 - 1.0 mg/dL [facility] Bilirubin, Direct 0.1 0.0 - 0.5 mg/dL [facility] Aspartate Amino Transferase 26 5 - 31 U/L [facility] Alanine Aminotransferase 11 0 - 31 U/L [facility] Total Protein 7.0 6.5 - 8.0 g/dL [facility] Albumin Level 3.9 3.5 - 5.0 g/dL [facility] Alkaline Phosphatase 58 39 - 117 U/L [facility] Blood Venous blood specimen / Unknown 08/18/2024 9:29 AM EDT 08/18/2024 11:31 AM EDT us Agata Emery DO LAB BLOOD ORDERABLES Final R esult [facility] [address] [place] [phone] * Lipid Panel, Standard (08/18/2024 9:29 AM EDT) Triglycerides 42 <150 mg/dL [facility] Comment:Desirable Triglyceri de: less than 150 mg/dLBorderline High Triglyceride 150-199 mg/dLHigh Triglyceride: 200-499 mg/dLVery High Triglyceride: greater than or equal to 5OO mg/dL Cholesterol 152 <200 mg/dL [facility] Comment:Desirable Cholestero l: less than 200 mg/dLBorderline High Cholesterol: 200-239 mg/dLHigh Cholesterol: greater than 239 mg/dL LDL Cholesterol Calculated 84 <100 mg/dL [facility] Comment:Desirable LDL: less than 100 mg/dLNear Optimal/Above Optimal LDL: 110- 129 mg/dLBorderline High LDL: 130-159 mg/dLHigh LDL: 160-189 mg/dLVery High LDL: greater than or equal to 190 mg/dL HDL Cholesterol 60 >40 mg/dL [facility] Comment:Desirable HDL: great er than 40 mg/dL Note: This HDL assay may give artificially low results in patients with liver disease. Blood Venous blood specimen / Unknown 08/18/2024 9:29 AM EDT 08/18/2024 11:31 AM EDT Agata Emery DO LAB BLOOD ORDERABLES Final R esult Performing Organization Address City/[facility]/ZIP Co de Phone Number [facility] [address] [place] [phone] * (ABNORMAL) Basic Metabolic Panel (08/18/2024 9:29 AM EDT) Sodium 136 135 - 145 mmol/L [facility] Potassium 3.7 3.3 - 5.1 mmol/L [facility] Chloride 106 96 - 108 mmol/L [facility] Carbon Dioxide 25 22 - 29 mmol/L [facility] Anion Gap 9(L) 12 - 20 [facility] Urea Nitrogen (BUN) 8(L) 9 - 16 mg/dL [facility] Creatinine, Serum 0.63 0.5 - 1.4 mg/dL [facility] Estimated Glomerular Filt Rate >60 [facility] Comment:Chronic Kidney Disea se: Estimated GFR < 60 mL/min/1.73d2Giqjpj Kidney Disease: Estimated GFR < 15 mL/min/1.73m2 Glucose 120(H) 60 - 115 mg/dL [facility] Calcium 8.9 8.4 - 10.2 mg/dL [facility] Blood Venous blood specimen / Unknown 08/18/2024 9:29 AM EDT 08/18/2024 11:31 AM EDT Agata Emery DO LAB BLOOD ORDERABLES Final R esult Performing Organization Address [facility]/ZIP Co de Phone Number [facility] [address] [place] [address] [phone] from Last 3 Months Insurance [facility] C3 Care Teams Regulatory Intern Relationship Specialty Start Date End Date Agata Emery DO [address] [place] [phone] PCP - General Family Medicine 08/18/24
--- NOTE | 2024-10-31 01:12 | MHC.CARE ---
This clinician attempted to evaluate patient at 0053. Patient was asleep. She was difficult to arouse, but did awaken with the help of the diesel service technician after patient did not respond to t/w's attempts. Patient states she is exhausted and unable to participate in an assessment. She reports this being the second night she has had her Seroquel after being off of her meds, which has caused her to be drowsy. She requested to be seen later in the morning when she awakens.
[2024-10-31 05:59] LABS: UPreg QC Valid YES; Urine Pregnancy NEGATIVE (NEGATIVE)
[2024-10-31 10:48] VITALS: BP 107/64; PULSE 91; RESP 16; TEMP 36.9; O2SAT 98
== END 2024-10-31 10:51 | disposition other institution (70) ==
PROVIDERS: Emergency Provider Emergency Medicine
DX: R53.83 Other fatigue (principal); Z91.148 Patient's other noncompliance with medication regimen for other reason; F31.9 Bipolar disorder, unspecified; F20.9 Schizophrenia, unspecified; F43.12 Post-traumatic stress disorder, chronic; F17.210 Nicotine dependence, cigarettes, uncomplicated; Z79.899 Other long term (current) drug therapy
CPT/HCPCS: 36415; 80053; 80164; 80307; 81003; 81025; 85025; 99284; S9485

== ENCOUNTER 2024-11-24 09:06 | Outpatient (REF) | payer MEDICAID, SELFPAY ==
--- NOTE | ~2024-11-24 | XR_ITS ---
EXAMINATION: XR ANKLE, LEFT CLINICAL INFORMATION: M25.579 - Pain in unspecified ankle and joints of unspecified foot COMPARISON: June 30, 2024 TECHNIQUE: AP, lateral, and mortise views of the left ankle. FINDINGS: Again seen is lateral plate and screws across a healed distal fibular fracture. 2 cancellous screws are placed across the medial malleolus. There are 2 buttons medial to the medial metaphysis of the distal tibia relating to 2 pegs in the distal aspect of the lateral fibular plate.. There are tracks related to syndesmotic repair. There is maturing periosteal new bone formation around the distal tibial medial metaphysis. There is increasing density heterotopic ossification across the interosseous ligament of the distal tibia and fibula. XR/XR ankle LT min 3V IMPRESSION: Postoperative changes with interval remodeling. Electronically signed by: Dontrell Bhatia MD 11/24/2024 11:39 AM EDT
--- OUTSIDE RECORDS SUMMARY | 2024-11-27 09:23 | XMS_ITS | Clinical Summary ---
Author Organization [employer] Address [address] [place] [address] 7 [place] [address] Care Team Providers Care Recovery Rn Name Role Phone Agata Emery Primary Care Provider [phone] Allergies Active Allergy Reactions Criticality Noted Date [...] Overview (10/11/2023): 02/2018: ED, Crisis, admitted to [facility] inpatient. 03/2018: Inpatient admission; Discharged 04/2018. 01/2019: Care plan from [facility] . Likely to transfer to [facility]. 06/06/19: Admitted to [facility] unit Anorexia 10/10/2015 ADHD 02/21/2015 Resolved [...] (10/30/2024 11:08 PM EDT) Urine NEGATIVE NEGATIVE [facility] Comment:This test was develo ped to detect early . Falsenegative results may occur after the 5th - 7th week ofpregnancy when using this test method. If clinicallyindicated, consider a serum hCG. 10/30/2024 11:0 8 PM EDT 10/31/2024 5:52 AM EDT us Generic External Data Provider LAB URINE ORDERAB LES Final Result Performing Organization Address [facility]/ZIP Co de Phone Number [facility] [address] [place] [address] [phone] * Hepatitis C Antibody with Reflex to HCV, RNA, Quantitative, Real-Time PCR (08/18/2024 9:29 AM EDT) Hepatitis C Antibody Nonreactive Nonreactive [facility] Comment:Antibodies to HCV no t detected; does not exclude early acuteHCV infection. Blood Venous blood specimen / Unknown 08/18/2024 9:29 AM EDT 08/18/2024 11:31 AM EDT us Agata Emery DO LAB BLOOD ORDERABLES Final R esult Performing Organization Address [facility]/ZIP Co de Phone Number [facility] [address] [place] [phone] * HIV-1/2 Antigen and Antibodies, Fourth Generation, with Reflexes (08/18/2024 9:29 AM EDT) HIV AB/AG Nonreactive Nonreactive [facility] Comment:HIV-1 p24 Ag and/or HIV-1/HIV-2 Ab not detected.A test result that is nonreactive does not exclude thepossibility of exposure to or infection with HIV-1 and/orHIV-2. Nonreactive results in this assay for individualswith prior exposure to HIV-1 and/or HIV-2 may be due toantigen and antibody levels that are below the limit ofdetection of this assay.The [employer] HIV Ag/Ab Combo assay result andsupplemental assay results should be interpreted inconjunction with the patient's clinical presentation,history and other laboratory results. If the results areinconsistent with clinical evidence, additional testing issuggested to confirm the result. Blood Venous blood specimen / Unknown 08/18/2024 9:29 AM EDT 08/18/2024 11:31 AM EDT Agata Emery DO LAB BLOOD ORDERABLES Final R esult [facility] [address] [place] [address] [phone] from Last 3 Months or Most Recently Relevant to Health Maintenance Insurance [facility] C3 Care Teams Recovery Rn Relationship Specialty Start Date End Date Agata Emery DO [address] [place] [phone] PCP - General Family Medicine 08/18/24
== END 2024-11-24 09:07 | disposition home or self-care (01) ==
LOC: HO.HOSX 09:06
PROVIDERS: Visit Provider Physician Assistant
DX: Z87.81 Personal history of (healed) traumatic fracture (principal); Z98.890 Other specified postprocedural states
CPT/HCPCS: 73610; 99212

== ENCOUNTER 2024-11-24 11:24 | Outpatient (AMB) | payer MEDICAID, SELFPAY ==
--- NOTE | 2024-11-24 11:28 | A.OFFVIS_ITS ---
Vital Signs 11/24/24 11:29 Height 5 ft 6 in Weight 120 lb BMI 19.4 Intake Visit Reasons: OV- LT ankle ORIF 04/12/24 NE Intake Note: Lauren is a 24 year old female who presents for a post op appointment s/p LT ankle ORIF 04/12/24 NE. At patient's last visit she was able to discontinue her tall walking boot and transition to a supportive shoe. Patient reports she is doing better. She states that she has some discomfort after she does her at home exercises. Allergies insect venom (MOSQUITO) Allergy (Unknown, Verified 11/24/24 11:39) UNKNOWN paliperidone (From INVEGA) Allergy (Unknown, Verified 11/24/24 11:39) DYSTONIC REACTION haloperidol (HALOPERIDOL) Adverse Reaction (Intermediate, Verified 11/24/24 11:39) Dystonic reaction HPI HPI OV- LT ankle ORIF 04/12/24 NE: Details: Ms. Porter is a 24-year-old female who presents to the office today status post left ankle ORIF performed on 04/12/[address] Luz. She denies any pain at this time. She has transitioned to a normal walking shoe. No complaints. [facility] Medical History Depression Chronic schizophrenia Bipolar disorder Depression Anxiety Bipolar 1 disorder Social History Household Members: Other Household Members Other:: staff, roommates Housing: House Housing Other:: [facility] Are you a primary home health care provider to a significant other at home: No Do you presently have visiting nurse or other home services: No Alcohol intake: never Comment: M3 Patient Tobacco Use Status: Current everyday Tobacco user Tobacco use type: Cigarette Cigarette Packs Per Day: 0.5 Cigarettes Per Day: 5 Years Smoked: 2 years e-Cigarette/Vaping Use: Currently Using Second Hand Smoke Exposure: No Substance Use Type: Marijuana service: No Sexual orientation: Don't Know Review of Systems Const All systems reviewed & are unremarkable except as noted in HPI and below Physical Exam Vital Signs: BMI result Body Mass Index 19.4 Const General: cooperative, healthy appearing and no acute distress Resp Effort & Inspection: normal respiratory effort and able to speak in complete sentences Cardio Rate: regular rate Peripheral pulses: Peripheral pulses 2+ throughout Skin Lesions: no lesions Rashes: no rashes Extrem Other: Left ankle novel to inspection incision sites are clean dry and intact. No surrounding erythema or drainage. No signs of infection. Able to perform full range of motion in all planes. NVI. Assessment & Plan Assessment & Plan (1) Status post ORIF of fracture of ankle: Code(s): Z98.890 - Other specified postprocedural states; Z87.81 - Personal history of (healed) traumatic fracture Category: Surgical Plan Ms. Porter is a 24-year-old female who presents to the office today status post left ankle ORIF performed on 04/12/[address] Luz. She denies any pain at this time. She has transitioned to a normal walking shoe. No complaints. While in the office today, the patient has no complaints and is happy with her recovery. She may resume back to normal activities as tolerated using pain as her guide. She will follow up PRN, sooner if needed. X-rays of the left ankle which were obtained while in the office today and were reviewed by me, Bela Lopez PA-C, revealed intact orthopedic hardware. Orders: Orders XR ankle LT min 3V 11/24/24 M25.579 - Pain in unspecified ankle and joints of unspecified foot Coding Level of Care Code Est Pt Level 3 (59194) Diagnoses Status post ORIF of fracture of ankle Z98.890; Z87.81
[2024-11-24 11:29] VITALS: BMI 19.4
--- OUTSIDE RECORDS SUMMARY | 2024-11-24 11:50 | XMS_ITS | Clinical Summary ---
Author Organization [employer] Address [address] [place] [address] 7 [place] [address] Care Team Providers Care Synchronizer Name Role Phone Agata Emery Primary Care [...] Overview (10/11/2023): 02/2018: ED, Crisis, admitted to [facility] inpatient. 03/2018: Inpatient admission; Discharged 04/2018. 01/2019: Care plan from [facility] . Likely to transfer to [facility]. 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 Constipation 09/30/2015 06/20/2024 Dysmenorrhea 02/21/2015 06/20/2024 Eczema 02/21/2015 06/20/2024 Immunizations Immunization Administration Dates Next Due DTaP [...] (PISQ) 01/24/2015 Pap Smear 01/24/2021 COVID-19 Vaccine () 01/09/2024 Depression Monitoring 12/18/2024 06/20/2024, 025 Influenza Vaccine (#1) 2025 08/14/2014, 2012 SDOH Screening 06/08/2025 06/08/2024 Alcohol/Substance Use Screening [...] Procedure Name Priority Date/Time Associated Diagnosis Comments HCG, QL, URINE Routine 10/30/2024 11:08 PM EDT HEPATITIS C AB W/REFL TO HCV RNA, QN, PCR Routine 08/18/2024 9:29 AM EDT Encounter for immunization Routine history and physical examination of adult HIV 1/2 ANTIGEN/ANTIBODY, FOURTH GENERATION W/RFL Routine 08/18/2024 9:29 AM EDT Encounter for immunization Routine history and physical examination of adult from Last 3 Months or Most Recently Relevant to Health Maintenance Results * HCG, Qualitative, Urine (10/30/2024 11:08 PM EDT) Urine NEGATIVE NEGATIVE [facility] Comment:This test was develo ped to detect early . Falsenegative results may occur after the 5th - 7th week ofpregnancy when using this test method. If clinicallyindicated, consider a serum hCG. 10/30/2024 11:0 8 PM EDT 10/31/2024 5:52 AM EDT us Generic External Data Provider LAB URINE ORDERAB LES Final Result Performing Organization Address [facility]/ZIP Co de Phone Number [facility] [address] [place] [address] [phone] * Hepatitis C Antibody with Reflex to HCV, RNA, Quantitative, Real-Time PCR (08/18/2024 9:29 AM EDT) Hepatitis C Antibody Nonreactive Nonreactive [facility] Comment:Antibodies to HCV no t detected; does not exclude early acuteHCV infection. Blood Venous blood specimen / Unknown 08/18/2024 9:29 AM EDT 08/18/2024 11:31 AM EDT us Agata Emery DO LAB BLOOD ORDERABLES Final R esult Performing Organization Address [facility]/ZIP Co de Phone Number [facility] [address] [place] [phone] * HIV-1/2 Antigen and Antibodies, Fourth Generation, with Reflexes (08/18/2024 9:29 AM EDT) HIV AB/AG Nonreactive Nonreactive [facility] Comment:HIV-1 p24 Ag and/or HIV-1/HIV-2 Ab not detected.A test result that is nonreactive does not exclude thepossibility of exposure to or infection with HIV-1 and/orHIV-2. Nonreactive results in this assay for individualswith prior exposure to HIV-1 and/or HIV-2 may be due toantigen and antibody levels that are below the limit ofdetection of this assay.The [employer] HIV Ag/Ab Combo assay result andsupplemental assay results should be interpreted inconjunction with the patient's clinical presentation,history and other laboratory results. If the results areinconsistent with clinical evidence, additional testing issuggested to confirm the result. Blood Venous blood specimen / Unknown 08/18/2024 9:29 AM EDT 08/18/2024 11:31 AM EDT Agata Emery DO LAB BLOOD ORDERABLES Final R esult [facility] [address] [place] [address] [phone] from Last 3 Months or Most Recently Relevant to Health Maintenance Insurance [facility] C3 Care Teams Synchronizer Relationship Specialty Start Date End Date Agata Emery DO [address] [place] [phone] PCP - General Family Medicine 08/18/24
== END 2024-11-24 12:16 | disposition home or self-care (01) ==
LOC: HO.HOS 11:25
PROVIDERS: PCP Family Medicine; Visit Provider Physician Assistant
DX: Z87.81 Personal history of (healed) traumatic fracture (principal); Z98.890 Other specified postprocedural states
CPT/HCPCS: 99213

== ENCOUNTER → 2024-11-24 11:26 | Outpatient (BNV) | payer MEDICAID, SELFPAY | PROVIDERS: Visit Provider Radiology Diagnostic Radiology | DX: M61.572 Other ossification of muscle, left ankle and foot (principal) | CPT/HCPCS: 73610 ==

== ENCOUNTER 2024-11-30 13:19 | Emergency (ER) | payer MEDICAID, SELFPAY ==
[2024-11-30 13:30] VITALS: BP 123/67; PULSE 97; RESP 18; TEMP 36.1; O2SAT 98; BMI 29.2
--- NOTE | 2024-11-30 13:32 | ED_ITS ---
HPI - General Adult General Chief complaint: Dental/Oral Stated complaint: allergic reaction facial swelling Time Seen by Provider: 11/30/24 13:40 Source: patient and RN notes reviewed Mode of arrival: ambulatory Limitations: no limitations History of Present Illness ED Provider: Mary Alice White PA-C HPI narrative: This is a 29-veyc-lgr-female, with a hx of bipolar disorder, PTSD, who presents to the ER with complaints of right upper dental pain x 1 week. Reports that over the last few days she has had right sided facial swelling associated with this. No fevers, chills, difficulty breathing or swallowing. Denies taking any medications at home to treat her symptoms. She has a therapist who she can follow up with. No other complaints or concerns at this time. MD complaint: dental pain Onset (ago): week(s) Relieving factors: none Exacerbating factors: none Associated symptoms: denies other symptoms Treatments prior to arrival: none Related Data Home Medications ?Medication ?Instructions ?Recorded ?Confirmed lamotrigine 100 mg tablet 100 mg PO DAILY 04/12/24 lamotrigine 25 mg tablet 25 mg PO DAILY 10/30/2410/09 quetiapine 50 mg tablet 50 mg PO BEDTIME 10/30/24 Previous Rx's ?Medication ?Instructions ?Recorded divalproex 500 mg tablet,extended 1,500 mg (3 x 500 mg ) PO BEDTIME 06/10/23 release 24 hr 30 days #90 tabs naproxen 500 mg tablet 500 mg PO BID PRN pain #14 t abs 07/21/24 acetaminophen 500 mg tablet 500 mg PO Q6H PRN pain #30 tabs 11/30/24 (Tylenol Extra Strength) amoxicillin 875 mg-potassium 1 tab PO BID 10 days #20 tabs 11/30/24 clavulanate 125 mg tablet Allergies Allergy/AdvReac Type Severity Reaction Status Date / Time insect venom (MOSQUITO) Allergy Unknown UNKNOWN Verified 11/30/24 13:34 paliperidone (From INVEGA) Allergy Unknown DYSTONIC Verified 11/30/24 13:34 REACTION haloperidol (HALOPERIDOL) AdvReac Intermediate Dystonic Verified 11/30/24 13:34 reaction Review of Systems 2 Review of Systems: Yes all other systems are reviewed and are negative Constitutional: Constitutional: Reports as per HPI [facility] Past Medical History Attestation statement: The following information was validated with the patient. Medical History Depression Chronic schizophrenia Bipolar disorder Depression Anxiety Bipolar 1 disorder Social History Social History Household Members: Other Household Members Other:: staff, roommates Housing: House Housing Other:: [facility] [address] stairs Are you a primary senior resident care director to a significant other at home: No Do you presently have visiting nurse or other home services: No Alcohol intake: never Comment: M3 Patient Tobacco Use Status: Current everyday Tobacco user Tobacco use type: Cigarette Cigarette Packs Per Day: 0.5 Cigarettes Per Day: 5 Years Smoked: 2 years e-Cigarette/Vaping Use: Currently Using Second Hand Smoke Exposure: No Substance Use Type: Marijuana Advance Directives: No Advance Directives Information Provided: Yes Do you have a plan to hurt others: No Plan service: No Sexual orientation: Don't Know Physical Exam ED Vital Signs: Vital Signs - 24 hr 11/30/24 13:30 Temperature 97.0 F Pulse Rate 97 Respiratory Rate 18 Blood Pressure 123/67 Pulse Oximetry 98 Oxygen Delivery Method Room Air BMI result Body Mass Index 29.2 Const General: cooperative, comfortable and no acute distress Orientation/consciousness: patient oriented x3 Limitations: no limitations HENMT Head: Yes normal to inspection, Yes normocephalic and Yes atraumatic Ears: hearing grossly normal bilaterally General nose exam: Normal external nose present Face and sinus: Yes normal facial exam Mouth: Normal oral and palatal mucosa present, oropharynx normal and moist mucous membranes Teeth image: 2 1. Tooth number 5 in poor repair, with TTP, no surrounding gum edema or fluctuance, no induration. No trismus, drooling or dysphonia. Throat: Yes posterior oropharynx normal Eyes General: appearance normal, both eyes and all related structures Eyelids: Yes eyelids normal Conjunctivae: conjunctivae normal Sclerae: sclerae normal Pupils: Equal, round and reactive pupils present EOM: EOMs intact bilaterally Neck Neck: Yes normal visual inspection, Yes full ROM and Yes no lymphadenopathy Lymphatic: no lymphadenopathy noted Chest Chest palpation & inspection: normal inspection of the chest Resp Effort & Inspection: normal respiratory effort and able to speak in complete sentences Auscultation: clear to auscultation bilaterally, no crackles, no rales, no rhonchi and no wheezes Cardio Rate: regular rate Rhythm: regular rhythm Heart sounds: S1 normal heart sound present and S2 normal heart sound present GI Inspection: Yes normal to inspection Skin General skin exam: no rashes or lesions noted Trauma: no lacerations or abrasions Wounds: no wounds Neuro General: patient oriented x3 and moves all extremities Cranial nerves: Yes Equal, round and reactive pupils present Extrem General: Yes normal to inspection Right upper extremity: normal to inspection Left upper extremity: normal to inspection Right lower extremity: normal to inspection Left lower extremity: normal to inspection Medical Decision Making Medical Decision Making [facility] Narrative: This is a 88-grrc-trp-female who presents to the ER with complaints of right upper dental pain x 1 week. On arrival, vital signs wnl, she is speaking in full sentences under no acute distress. Right upper dentition with slight decay and ttp. No evidence of dental abscess on exam. Will d/c on abx, advised to f.u with dentist. Given return precautions. Pt stable for d.c. Differential Diagnosis Differential Diagnoses: The differential diagnosis associated with the presentation includes dental decay, dental caries, abscess, facial swelling Admission/Observation Consideration of admission/observation: Escalation of care including admission/observation considered Lab Data [facility] Lab Attestation statement: I reviewed the patient's lab results. Radiology Impression Discussion of test interpretation with radiology: I have reviewed the radiologist's reading. External Record Review External record reviewed: Inpatient record, Office record, Outpatient record, Prior outpatient labs, Prior outpatient radiology, Primary care record and Outside ED record Discharge Plan Discharge Clinical Impression: Pain, dental Patient Disposition: Home, Self-Care Instructions: Toothache (ED) Additional Instructions: You were seen in the ER due to facial swelling, dental pain. Please take prescribed antibiotic as directed. Finish the entire course even if your symptoms improve. If any new or worsening symptoms occur including but not limited to worsening facial swelling, difficulty swallowing, chest pain or shortness of breath, please seek emergent care. Warm compresses to your face can be helpful, call a dentist today to follow up. Prescriptions: New amoxicillin-pot clavulanate 875-125 mg tablet 1 tab PO BID 10 Days Qty: 20 0RF acetaminophen [Tylenol Extra Strength] 500 mg tablet 500 mg PO Q6H PRN (Reason: pain) Qty: 30 0RF No Action divalproex 500 mg Tablet Extended Release 24 Hr 1,500 mg PO BEDTIME 30 Days Qty: 90 0RF lamotrigine 100 mg tablet 100 mg PO DAILY naproxen 500 mg tablet 500 mg PO BID PRN (Reason: pain) Qty: 14 0RF lamotrigine 25 mg tablet 25 mg PO DAILY Rx Instructions: total HS dose 125 mg quetiapine 50 mg tablet 50 mg PO BEDTIME Interventions: ED Discharge Assessment Last Done: 11/30/24 14:00 Discharge Date/Time: 11/30/24 14:00 Print Language: Mohawk
[2024-11-30 14:00] VITALS: BP 123/67; PULSE 97; RESP 18; TEMP 36.1; O2SAT 98
--- OUTSIDE RECORDS SUMMARY | 2024-11-30 14:01 | XMS_ITS | Clinical Summary ---
Author Organization [employer] Address [address] [place] [address] 7 [place] [address] Care Team Providers Care Elevated Motorman Name Role Phone Agata Emery Primary Care [...] Overview (10/11/2023): 02/2018: ED, Crisis, admitted to [facility] inpatient. 03/2018: Inpatient admission; Discharged 04/2018. 01/2019: Care plan from [facility] . Likely to transfer to [facility]. 06/06/19: Admitted to [facility] Anorexia 10/10/2015 ADHD 02/21/2015 [...] (10/30/2024 11:08 PM EDT) Urine NEGATIVE NEGATIVE [facility] Comment:This test was develo ped to detect early . Falsenegative results may occur after the 5th - 7th week ofpregnancy when using this test method. If clinicallyindicated, consider a serum hCG. 10/30/2024 11:0 8 PM EDT 10/31/2024 5:52 AM EDT us Generic External Data Provider LAB URINE ORDERAB LES Final Result Performing Organization Address [facility]/ZIP Co de Phone Number [facility] [address] [place] [address] [phone] * Hepatitis C Antibody with Reflex to HCV, RNA, Quantitative, Real-Time PCR (08/18/2024 9:29 AM EDT) Hepatitis C Antibody Nonreactive Nonreactive [facility] Comment:Antibodies to HCV no t detected; does not exclude early acuteHCV infection. Blood Venous blood specimen / Unknown 08/18/2024 9:29 AM EDT 08/18/2024 11:31 AM EDT us Agata Emery DO LAB BLOOD ORDERABLES Final R esult Performing Organization Address [facility]/ZIP Co de Phone Number [facility] [address] [place] [phone] * HIV-1/2 Antigen and Antibodies, Fourth Generation, with Reflexes (08/18/2024 9:29 AM EDT) HIV AB/AG Nonreactive Nonreactive [facility] Comment:HIV-1 p24 Ag and/or HIV-1/HIV-2 Ab not detected.A test result that is nonreactive does not exclude thepossibility of exposure to or infection with HIV-1 and/orHIV-2. Nonreactive results in this assay for individualswith prior exposure to HIV-1 and/or HIV-2 may be due toantigen and antibody levels that are below the limit ofdetection of this assay.The [employer] HIV Ag/Ab Combo assay result andsupplemental assay results should be interpreted inconjunction with the patient's clinical presentation,history and other laboratory results. If the results areinconsistent with clinical evidence, additional testing issuggested to confirm the result. Blood Venous blood specimen / Unknown 08/18/2024 9:29 AM EDT 08/18/2024 11:31 AM EDT Agata Emery DO LAB BLOOD ORDERABLES Final R esult [facility] [address] [place] [address] [phone] from Last 3 Months or Most Recently Relevant to Health Maintenance Insurance [facility] C3 Care Teams Elevated Motorman Relationship Specialty Start Date End Date Agata Emery DO [address] [place] [phone] PCP - General Family Medicine 08/18/24
== END 2024-11-30 14:00 | disposition home or self-care (01) ==
PROVIDERS: Emergency Provider Emergency Medicine; PCP Family Medicine
DX: K02.9 Dental caries, unspecified (principal); K08.89 Other specified disorders of teeth and supporting structures
CPT/HCPCS: 99282; 99283

== ENCOUNTER 2024-12-15 22:56 | Emergency (ER) | payer MEDICAID, SELFPAY ==
[2024-12-15 22:58] VITALS: BP 110/62; PULSE 86; O2SAT 97
[2024-12-15 23:11] VITALS: BP 104/68; PULSE 83; RESP 18; TEMP 36.7; O2SAT 98
[2024-12-15 23:37] LABS: Hematocrit 36.5 % (37.0-47.0); Hemoglobin 12.6 g/dl (12.0-16.0); Mean Corpuscular HGB Conc 34.5 g/dl (31.0-35.0); Mean Corpuscular Hemoglobin 30.4 pg (27.0-33.0); Mean Corpuscular Volume 88.0 fL (80.0-98.0); NRBC Abs Auto 0.000 X10*3/uL (0.0-0.012); NRBC Pct Auto 0.0 /100WBC (0.0-0.2); Platelet Count 204 X10*3/uL (160-400); Red Blood Count 4.15 X10*6/uL (4.20-5.50); White Blood Count 7.0 X10*3/uL (4.8-10.8)
[2024-12-15 23:53] LABS: Alanine Aminotransferase 16 U/L (0-31); Albumin Level 4.1 g/dL (3.5-5.0); Alkaline Phosphatase 69 U/L (39-117); Anion Gap 11 (12-20); Aspartate Amino Transferase 29 U/L (5-31); Blood Urea Nitrogen 12 mg/dL (9-16); Calcium 9.1 mg/dL (8.4-10.2); Carbon Dioxide 29 mmol/L (22-29); Chloride 104 mmol/L (96-108); Creatinine Clr Calc Pharmacy 150.7; Estimated Glomerular Filt Rate > 60; Potassium 4.5 mmol/L (3.3-5.1); Sodium 139 mmol/L (135-145); Total Protein 7.3 g/dL (6.5-8.0)
--- NOTE | 2024-12-16 03:17 | ED_ITS ---
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 The patient reports she was recently treated for a dental infection of the right upper outer incisor, finished antibiotics 2 days ago, patient reports however 3 days ago she noted a significantly swollen right anterior cervical chain lymph node with discomfort. Patient also reports she with subjective multiple mosquito bites in the right occiput last week. The patient denies associated fever/chills, nausea, vomiting, chest pain, shortness of breath, abdominal pain, or other swollen lymph nodes. The patient reports this is a similar reaction to infection that she has had previously however it seems to be persisting for a greater period of time. The patient has not attempted any medications for her symptoms. Patient has not attempted any warm compresses. Related Data Home Medications ?Medication ?Instructions ?Recorded ?Confirmed lamotrigine 100 mg tablet 100 mg PO DAILY 04/12/24 lamotrigine 25 mg tablet 25 mg PO DAILY 10/30/2410/09 quetiapine 50 mg tablet 50 mg PO BEDTIME 10/30/24 Previous Rx's ?Medication ?Instructions ?Recorded divalproex 500 mg tablet,extended 1,500 mg (3 x 500 mg ) PO BEDTIME 06/10/23 release 24 hr 30 days #90 tabs naproxen 500 mg tablet 500 mg PO BID PRN pain #14 t abs 07/21/24 acetaminophen 500 mg tablet 500 mg PO Q6H PRN pain #30 tabs 11/30/24 (Tylenol Extra Strength) amoxicillin 875 mg-potassium 1 tab PO BID 10 days #20 tabs 11/30/24 clavulanate 125 mg tablet acetaminophen 500 mg capsule 1,000 mg (2 x 500 mg) PO .q8 PRN 12/16/24 fever or pain #30 caps ibuprofen 600 mg tablet 600 mg PO Q8H PRN fever or p ain 12/16/24 #30 tabs Allergies Allergy/AdvReac Type Severity Reaction Status Date / Time insect venom (MOSQUITO) Allergy Unknown UNKNOWN Verified 12/15/24 23:16 paliperidone (From INVEGA) Allergy Unknown DYSTONIC Verified 12/15/24 23:16 REACTION haloperidol (HALOPERIDOL) AdvReac Intermediate Dystonic Verified 12/15/24 23:16 reaction Review of Systems 2 Review of Systems: Yes all other systems are reviewed and are negative PMFSH Past Medical History Medical History Depression Chronic schizophrenia Bipolar disorder Depression Anxiety Bipolar 1 disorder Social History Social History Household Members: Other Household Members Other:: staff, roommates Housing: House Housing Other:: shelter. 3 stairs Are you a primary aged or disabled care worker to a significant other at home: No Do you presently have visiting nurse or other home services: No Alcohol intake: never Comment: M3 Patient Tobacco Use Status: Current everyday Tobacco user Tobacco use type: Cigarette Cigarette Packs Per Day: 0.5 Cigarettes Per Day: 5 Years Smoked: 2 years e-Cigarette/Vaping Use: Currently Using Second Hand Smoke Exposure: No Substance Use Type: Marijuana Advance Directives: No Advance Directives Information Provided: Yes service: No Sexual orientation: Don't Know Physical Exam ED Vital Signs: Vital Signs - 24 hr 12/15/24 23:11 Temperature 98.1 F Pulse Rate 83 Respiratory Rate 18 Blood Pressure 104/68 Pulse Oximetry 98 Oxygen Delivery Method Room Air BMI result Body Mass Index 30.0 CONSTITUTIONAL: The patient appears non-toxic, well nourished and in no acute distress. Vital signs as documented. HEAD: Atraumatic, normocephalic. EYES: EOMs grossly intact, pupils equal, conjunctiva clear, no exudate. ENT: Nares patent, no discharge. Airway patent, no audible stridor, visible mucosa is pink and moist without noted lesions. NECK: trachea is midline, there is a single enlarged lymph node with minimal tenderness noted to the right upper anterior cervical chain, no overlying erythema or fluctuance. Full nonpainful range of motion, no meningismus. no other obvious masses or gross abnormalities. CHEST: Symmetric movement, normal appearance. LUNGS: Non-labored work of breathing. CARDIAC: No evidence of hypoperfusion. ABDOMEN: Nondistended, no obvious injury. : Deferred. EXTREMITIES: Moves all extremities spontaneously without reported pain. No obvious injury or deformity noted. NEURO: Alert and oriented x3, CN II-XII appear grossly intact. Cerebellar Functioning grossly intact. Speech clear and appropriate. SKIN: Warm, dry, color appropriate. No rashes or lesions noted. Medical Decision Making Medical Decision Making [facility] Narrative: 3:22 AM 12/16/2024 (Alyssa MARINA): The patient is a 24-year-old female presenting to the ED for evaluation of an enlarged right anterior cervical chain lymph node after a recent dental infection and mosquito bites of the right occiput. The patient reports this is a chronic recurrent issue for her however symptoms have lasted longer than normal prompting ED evaluation. Patient has not attempted any OTC analgesics or warm compresses. The patient denies associated fever/chills, nausea, vomiting or other systemic complaint. Patient's laboratory evaluation is markedly reassuring with no leukocytosis, significant anemia, electrolyte abnormality, or RUBI. The patient's exam is reassuring, single isolated right upper anterior cervical chain lymph node. Patient will be treated with ibuprofen, Tylenol, and discharged with instructions for PCP follow up and warm compresses. Lab Data [facility] Lab Attestation statement: I reviewed the patient's lab results. 12/15/24 23:32 12/15/24 23:32 Labs: Lab Results 12/15/24 Range/Units 23:32 WBC 7.0 (4.8-10.8) X10*3/uL RBC 4.15 L (4.20-5.50) X10*6/uL Hgb 12.6 (12.0-16.0) g/dl Hct 36.5 L (37.0-47.0) % MCV 88.0 (80.0-98.0) fL MCH 30.4 (27.0-33.0) pg MCHC 34.5 (31.0-35.0) g/dl RDW 11.9 (11.0-16.0) % Plt Count 204 (160-400) X10*3/uL MPV 9.2 L (9.4-12.3) fL Absolute Nucleated RBC 0.000 (0.0-0.012) X10*3/uL Nucleated RBC % (auto) 0.0 (0.0-0.2) /100WBC Sodium 139 (135-145) mmol/L Potassium 4.5 (3.3-5.1) mmol/L Chloride 104 (96-108) mmol/L Carbon Dioxide 29 (22-29) mmol/L Anion Gap 11 L (12-20) BUN 12 (9-16) mg/dL Creatinine 0.63 (0.5-1.4) mg/dL Estim Creat Clear Calc 150.7 Estimated GFR > 60 Random Glucose 86 (60-115) mg/dL Calcium 9.1 (8.4-10.2) mg/dL Total Bilirubin 0.1 (0.0-1.0) mg/dL AST 29 (5-31) U/L ALT 16 (0-31) U/L Alkaline Phosphatase 69 (39-117) U/L Total Protein 7.3 (6.5-8.0) g/dL Albumin 4.1 (3.5-5.0) g/dL External Record Review External record reviewed: Outpatient record Prescription Management I considered prescription management with: Pain Medication and Antibiotic Discharge Plan Discharge Clinical Impression: Enlarged lymph node in neck Patient Disposition: Home, Self-Care Instructions: Lymphadenopathy (ED) Additional Instructions: Thank you for choosing [facility]'s Emergency Department for your care today. Thankfully your laboratory evaluation and exam today are reassuring. At this time there is no indication for admission to the hospital or continued ED observation, and it is safe to discharge you home. Your enlarged lymph node on the right side may be a result of your recent dental infection combined with the your recent mosquito bites. At this time there was no evidence of any emergent cause for your enlarged lymph node and it is safe for you to follow up outpatient with the primary care provider for re- evaluation. You should take alternating (staggered) doses of ibuprofen 600mg and Tylenol 1000mg every 4 hours as needed for any additional pain. Please rest the injured area, and apply moist heat for 20 minutes every hour. Please stay well hydrated and get plenty of rest. Please follow up with your primary care physician for re-evaluation, additional management of your symptoms, and continued preventative care. If you do not have a primary care physician, please call the [facility] at [phone] to establish a new primary care physician. While waiting to establish your new primary care physician, you can call our Walk[facility]in [facility] at [phone] for non-emergency needs. Please return to the emergency department if you develop a severe or sudden change in your symptoms, a fever over 100.4 that does not improve with Tylenol or Ibuprofen, recurrent vomiting, or any other new or worsening symptoms or concerns. Prescriptions: New ibuprofen 600 mg tablet 600 mg PO Q8H PRN (Reason: fever or pain) Qty: 30 0RF acetaminophen 500 mg capsule 1,000 mg PO .q8 PRN (Reason: fever or pain) Qty: 30 0RF No Action divalproex 500 mg Tablet Extended Release 24 Hr 1,500 mg PO BEDTIME 30 Days Qty: 90 0RF lamotrigine 100 mg tablet 100 mg PO DAILY naproxen 500 mg tablet 500 mg PO BID PRN (Reason: pain) Qty: 14 0RF lamotrigine 25 mg tablet 25 mg PO DAILY Rx Instructions: total HS dose 125 mg quetiapine 50 mg tablet 50 mg PO BEDTIME amoxicillin-pot clavulanate 875-125 mg tablet 1 tab PO BID 10 Days Qty: 20 0RF acetaminophen [Tylenol Extra Strength] 500 mg tablet 500 mg PO Q6H PRN (Reason: pain) Qty: 30 0RF Referrals: Agata Emery DO [Primary Care Provider, Internal Medicine] Clinical Impression: Enlarged lymph node in neck Print Language: Maori
[2024-12-16 04:00] VITALS: BP 111/69; PULSE 79; RESP 16; TEMP 36.9; O2SAT 98
--- NOTE | 2024-12-16 04:23 | PC.NURSE ---
charge and patient reached agreement for pt to be allowed to remain in room until bus
[2024-12-16 04:40] VITALS: RESP 16
== END 2024-12-16 06:56 | disposition home or self-care (01) ==
PROVIDERS: Emergency Provider Emergency Medicine; PCP Family Medicine
DX: R59.9 Enlarged lymph nodes, unspecified (principal); F17.210 Nicotine dependence, cigarettes, uncomplicated; F12.90 Cannabis use, unspecified, uncomplicated
CPT/HCPCS: 36415; 80053; 85027; 99283; 99284